=== PATIENT | female | born 1935 | race Caucasian/White ===

== ENCOUNTER 2016-05-13 15:12 | Inpatient (IN) | payer OTHER ==
[~2016-05-13] VITALS: Ht 157.5 cm; Wt 98.0 kg
[~2016-05-13 15:12] MED LIST: ACET325T96 PO; ALBU1AER9 INH; ALPHTAB4 PO; AMIO200T4 PO; APR25 PO; ATOR-54 PO; BENZ100C84 PO; BISA1SUP4 PR; CLON0.1T12 PO; DESITIN TOP; FERR1TAB13 PO; FLUT0.15; FLUT1INH INH; FRS/40 PO; GABA-112 PO; GLIP2.5T11 PO; GUAI1TAB55 PO; HYDR25SU6 PO; IPRASOL4 INH; LACT10SO17 PO; LEVO-371 PO; LEVO50TA PO; MAGNSUS5 PO; METO50TA16 PO; MGNO400 PO; MONT1TAB3 PO; NTRSLP4 SL; NYSTATIN TOP; OMEP40CA36 PO; OPTOPS OPB; PANT40TA PO; POLY1POW2 PO; RANITAB6 PO; RMR15 PO; SENN8.6T7 PO; SERT100T PO; SIME1CAP28 PO; SPRIN/30 INH; SSD TOP; TRAM-10 PO
[2016-05-13] MEDS ORDERED: ALBUT/IPRATROP 3MG/0.5MG NEB 3 ML VIAL INH STA (15:30)
--- NOTE | 2016-05-13 16:12 | EMERGENCY ROOM VISIT NOTE ---
History Report prepared by David: Tammie Lima Under the Supervision of: Ana MckeonO. First contact with patient: 15:22 Chief Complaint: FLU LIKE SX Stated Complaint: ILLNESS, FLU LIKE SX History of Present Illness The patient is a 80 year old female who presents to the Emergency Room with complaints of constant flu like symptoms beginning today. The patient states that she has had a productive cough with clear phlegm that is worse in the morning. She also notes right leg swelling, abdominal pain, gas, and burping. She denies any chest pain. She reports that her last bowel movement was yesterday. The patient had a course of Tamiflu at her [place] [facility]. Source of History: patient Onset: today Position: other (global) Quality: other (flu-like) Timing: constant Modifying Factors (Worsening): other (morning) Associated Symptoms: + abdominal pain, No chest pain Note: She also notes right leg swelling, gas, and burping. Review of Systems See HPI for pertinent positives & negatives. A total of 10 systems reviewed and were otherwise negative. Past Medical & Surgical Medical Problems: (1) Asthma (2) Atrial fibrillation (3) CKD (chronic kidney disease), stage III (4) COPD (chronic obstructive pulmonary disease) (5) Depression (6) Diabetes (7) Dyslipidemia (8) Hemorrhagic pericardial effusion (9) Hiatal hernia (10) Hypertension (11) Hypertension (12) Hypothyroidism (13) Pacemaker (14) S/P hernia repair (15) SSS (sick sinus syndrome) (16) Subdural hematoma (17) Vegetation of heart valve Surgical Problems: (1) History of esophagogastroduodenoscopy (2) S/P appendectomy (3) S/P cholecystectomy (4) S/P T&A (status post tonsillectomy and adenoidectomy) (5) S/P TASH (total abdominal hysterectomy) Family History Diabetes mellitus FH: cancer MOTHER (Breast and Bladder ) FH: heart disease MOTHER FHx: lung disease MOTHER Hypertension MOTHER Social History Smoking Status: Former Smoker Drug Use: none Marital Status: Housing Status: lives alone Occupation Status: retired Current/Historical Medications Scheduled [id number]-Ezmwqncdxqotb (Beano), 2 TABS PO TIDM Amiodarone Hcl (Cordarone), 200 MG PO DAILY Atorvastatin (Lipitor), 20 MG PO DAILY Clonidine Hcl (Catapres), 0.1 MG PO BID Cromolyn Sodium 4% Oph (Opticrom Oph), 1 DROP OPB DAILY Ferrous Sulfate (Kp Ferrous Sulfate), 325 MG PO DAILY Fluticasone Furoate-Vilanterol (Breo Ellipta), 1 PUFF INH DAILY Fluticasone Propionate (Nasal) (Flonase Allergy Relief), 2 SPRAYS NA DAILY Furosemide (Lasix), 40 MG PO BID Gabapentin (Neurontin), 100 MG PO TID Glipizide (Glipizide Er), 1 TAB PO DAILY Guaifenesin Ext Rel (Mucinex Ext Rel), 600 MG PO DAILY Hydralazine Hcl (Apresoline), 25 MG PO TID Lactulose (Chronulac), 15 ML PO DAILY Levocetirizine Dihydrochloride (Xyzal), 5 MG PO QPM Levothyroxine Sodium (Synthroid), 1 TAB PO DAILY Metoprolol Tartrate (Lopressor) (Lopressor), 50 MG PO BID Mirtazapine (Mirtazapine), 15 MG PO HS Montelukast Sodium (Singulair), 10 MG PO DAILY Omeprazole (Prilosec), 40 MG PO BID Oseltamivir Phosphate (Tamiflu), 75 MG PO DAILY Pantoprazole Sodium (Protonix), 40 MG PO DAILY Ranitidine Hcl (Zantac 150 Maximum Streng), 1 TAB PO BID Sennosides-Docusate Sodium (Sennalax-S), 2 TABS PO BID Sertraline Hcl (Zoloft), 100 MG PO DAILY Tiotropium [place] (Spiriva Handihaler), 1 CAP INH DAILY [Ssd/Nystatin/Desitin], 1 APPLN TOP PRN Scheduled PRN Acetaminophen Tab (Tylenol), 650 MG PO Q6H PRN for ELBOW & LEG PAIN Albuterol (Proair Hfa), 2 PUFFS INH Q4H PRN for SOB/Wheezing Benzonatate (Tessalon Perles), 100 MG PO Q6H PRN for Cough Bisacodyl (Bisac-Evac), 10 MG RE for Constipation Guaifenesin Ext Rel (Mucinex Ext Rel), 600 MG PO Q12 PRN for Hydrocortisone Acetate (Rectal (Anucort-Hc), 25 MG PO DAILY PRN for Hemorrhoids Ipratropium-Albuterol (Duoneb), 1 TREATMENT INH QID PRN for SOB/Wheezing Magnesium Hydroxide (Milk Of Magnesia), 30 ML PO DAILY PRN for Constipation Nitroglycerin (Nitrostat), 0.4 MG SL UD PRN for Chest Pain Nystatin (Topical) (Nystatin), 1 APPLN TOP BID PRN for irritation Polyethylene Glycol 3350 (Bulk (Polyethylene Glycol 3350), 17 GM PO DAILY PRN for Constipation Simethicone (Simethicone), 125 MG PO BID PRN for Gas or Constipation Tramadol (Ultram), 50 MG PO Q6H PRN for Pain Allergies Coded Allergies: Penicillins (Verified Allergy, Mild, rash, 05/13/16) Morphine (Verified Allergy, Unknown, UNKNOWN, 05/13/16) Codeine (Verified Adverse Reaction, Unknown, MAKES ME HIGH, 05/13/16) Physical Exam Vital Signs Date Time Temp Pulse Resp B/P Pulse Ox O2 Delivery O2 Flow Rate FiO2 05/13/16 17:45 83 25 163/129 05/13/16 17:45 87 Room Air 05/13/16 17:01 60 05/13/16 16:48 74 23 114/98 95 Nasal Cannula 2.0 05/13/16 15:32 37.1 81 24 144/99 90 Room Air 05/13/16 15:30 93 Nasal Cannula 2.0 Physical Exam GENERAL: Patient is awake, alert, and in no acute distress. Patient is resting comfortably and showing mild signs of anxiety EYES: The conjunctivae are clear. The pupils are round and reactive. EARS, NOSE, MOUTH AND THROAT: The nose is without any evidence of any deformity. Mucous membranes are moist tongue is midline NECK: The neck is nontender and supple. RESPIRATORY: Lung sounds diminished throughout, scattered rhonchi noted. Mild tachypnea noted but no conversational dyspnea noted. CARDIOVASCULAR: Regular rate and rhythm noted there no murmurs rubs or gallops normal S1 normal S2 GASTROINTESTINAL: Bowel sounds are present in all quadrants. Abdomen is nontender. Mildly distended but soft no rebound or guarding. MUSCULOSKELETAL/EXTREMITIES: There is no evidence of gross deformity full range of motion is noted in the hips and shoulders. Pedal edema bilaterally, left greater than right. SKIN: There is no obvious evidence of any rash. There are no petechiae, pallor or cyanosis noted. NEUROLOGIC: Patient is awake alert and oriented x3 Medical Decision & Procedures ER Provider Diagnostic Interpretation: X ray results and stated below per my interpretation and radiology interpretation. KUB FINDINGS: There is a lumbar levoscoliosis. There are advanced degenerative changes in the lower lumbar spine. There is moderate fecal retention. There is mild distention of transverse colon which measures 10 cm. There are surgical clips in the right upper quadrant consistent with a prior cholecystectomy IMPRESSION: 1. Fecal retention 2. Gaseous distention of transverse colon which measures 10 cm Electronically signed by: Yvan Gupta M.D. 05/13/2016 4:21 PM Dictated Date/Time: 05/13/2016 4:19 PM CHEST ONE VIEW PORTABLE FINDINGS: The heart remains enlarged. There is a left subclavian dual-chamber central venous pacemaker present. There is enlargement of the right pulmonary artery, likely secondary to pulmonary arterial hypertension. There is mild pulmonary vascular congestion. There is no lobar consolidation. There are no pleural effusions. There is a suspected hiatal hernia.[ IMPRESSION: 1. Stable cardiomegaly and suspected mild vascular congestion 2. Suspected pulmonary arterial hypertension 3. Hiatal hernia 4. No evidence of acute parenchymal consolidation Electronically signed by: Yvan Gupta M.D. 05/13/2016 4:19 PM Dictated Date/Time: 05/13/2016 4:17 PM Laboratory Results Test 05/13/16 15:20 05/13/16 15:45 05/13/16 18:22 Urine Color YELLOW Urine Appearance CLEAR (CLEAR) Urine pH 7.5 (4.5-7.5) Urine Specific [place] 1.004 (1.000-1.030) Urine Protein NEG (NEG) Urine Glucose (UA) NEG (NEG) Urine Ketones NEG (NEG) Urine Occult Blood NEG (NEG) Urine Nitrite NEG (NEG) Urine Bilirubin NEG (NEG) Urine Urobilinogen NEG (NEG) Urine Leukocyte Esterase TRACE (NEG) Urine WBC (Auto) 1-5 /hpf (0-5) Urine RBC (Auto) 0-4 /hpf (0-4) Urine Hyaline Casts (Auto) 0 /lpf (0-5) Urine Epithelial Cells (Auto) 5-10 /lpf (0-5) Urine Bacteria (Auto) NEG (NEG) Immature Granulocyte % (Auto) 0.1 % White Blood Count 6.84 K/uL (4.8-10.8) Red Blood Count 3.89 M/uL (4.2-5.4) Hemoglobin 12.0 g/dL (12.0-16.0) Hematocrit 37.9 % (37-47) Mean Corpuscular Volume 97.4 fL (80-100) Mean Corpuscular Hemoglobin 30.8 pg (25-34) Mean Corpuscular Hemoglobin Concent 31.7 g/dl (32-36) Platelet Count 140 K/uL (130-400) Mean Platelet Volume 9.8 fL (7.4-10.4) Neutrophils (%) (Auto) 70.0 % Lymphocytes (%) (Auto) 14.2 % Monocytes (%) (Auto) 11.5 % Eosinophils (%) (Auto) 4.1 % Basophils (%) (Auto) 0.1 % Neutrophils # (Auto) 4.78 K/uL (1.4-6.5) Lymphocytes # (Auto) 0.97 K/uL (1.2-3.4) Monocytes # (Auto) 0.79 K/uL (0.11-0.59) Eosinophils # (Auto) 0.28 K/uL (0-0.5) Basophils # (Auto) 0.01 K/uL (0-0.2) Immature Granulocyte # (Auto) 0.01 K/uL (0.00-0.02) Prothrombin Time 10.8 SECONDS (9.0-12.0) Prothromb Time International Ratio 1.0 (0.9-1.1) Activated Partial Thromboplast Time 24.6 SECONDS (21.0-31.0) Partial Thromboplastin Ratio 0.9 Total Bilirubin 0.3 mg/dl (0.2-1) Aspartate Amino Transf (AST/SGOT) 25 U/L (15-37) Alanine Aminotransferase (ALT/SGPT) 24 U/L (12-78) Alkaline Phosphatase 109 U/L (45-117) Total Creatine Kinase 59 U/L (26-192) Creatine Kinase MB 1.3 ng/ml (0.5-3.6) Creatine Kinase MB Ratio 2.2 (0-3.0) Troponin I 0.022 ng/ml (0-0.045) Pro-B-Type Natriuretic Peptide 9392 pg/ml (0-1800) Total Protein 6.3 gm/dl (6.4-8.2) Albumin 3.2 gm/dl (3.4-5.0) Globulin 3.1 gm/dl (2.5-4.0) Albumin/Globulin Ratio 1.0 (0.9-2) Influenza Type A Antigen Neg for Influ A (NEG) Influenza Type B Antigen Neg for Influ B (NEG) Laboratory results per my review. Medications Administered Medications (Trade) Dose Ordered Sig/Srinivas Route Start Time Stop Time Status Last Admin Dose Admin Albuterol/ Ipratropium (Duoneb) 3 ml NOW STAT INH 05/13/16 15:30 05/13/16 15:37 DC 05/13/16 15:43 3 ML Furosemide (Lasix Inj) 40 mg NOW STAT IV 05/13/16 17:38 05/13/16 17:39 DC 05/13/16 18:13 40 MG Levofloxacin (Levaquin / D5W) 750 mg ONE ONCE IV 05/13/16 17:45 05/13/16 17:46 DC 05/13/16 18:13 750 MG ECG Indication: other (flu like) Rate (beats per minute): 64 Rhythm: other (artial pacemaker) Findings: no ectopy, other (poor R wave progressoin, no ST segment abnormalities) Comparison ECG Date: 04/10/16 Change: no significant change ED Course 1524: The patient was evaluated in room B7. A complete history and physical examination were performed. 1530: Duoneb 3ml INH. 1738: Lasix Inj 40mg IV. 1745: Levofloxacin 750mg IV 1750: I discussed the patient's case with Luisana Bello. The patient will be evaluated for further management. 1811: Upon reevaluation, the patient is hemodynamically stable. I discussed results and treatment plan with the patient. She verbalizes agreement and understanding. I spoke with Luisana Bello of [facility]. The patient will be evaluated for further management and care. Medical Decision Differential diagnosis: Etiologies such as infections, reactive airway disease, pneumonia, pneumothorax , COPD, CHF, cardiac ischemia, pulmonary embolism, musculoskeletal, gastrointestinal, as well as others were entertained. Nursing notes reviewed. The patient is an 80-year-old female who presented to the emergency department for an evaluation of shortness of breath. The patient appeared to have a mixed picture of CHF as well as infectious process. She was treated for CHF as well as pneumonia. She was hypoxic especially on any exertion. I discussed the patient's laboratory and radiographic studies with her. She was feeling much better on subsequent reevaluation but I discussed her case with the on-call [facility] hospitalist group because of the degree of hypoxia. They've agreed to evaluate the patient in the emergency department for further management and disposition. Consults Time Called: [phone] Consulting Physician: Luisana Lilly Returned Call: [phone] I discussed the patient's case with Luisana Bello. The patient will be evaluated for further management. Impression Primary Impression: Pneumonia Additional Impressions: CHF (congestive heart failure) Hypoxia Scribe Attestation The scribe's documentation has been prepared under my direction and personally reviewed by me in its entirety. I confirm that the note above accurately reflects all work, treatment, procedures, and medical decision making performed by me. Departure Information Dispostion Being Evaluated By Hospitalist Referrals [facility] (PCP) Patient Instructions My [facility] Problem Qualifiers
[2016-05-13 16:15] LABS: BASO % 0.1 %; BASO ABS # 0.01 K/uL (0-0.2); CALCIUM 8.9 mg/dl (8.5-10.1); COMPLETE YES; EOS % 4.1 %; HEMATOCRIT 37.9 % (37-47); IG% 0.1 %; LYMPH % 14.2 %; LYMPH ABS # 0.97 K/uL (1.2-3.4); MEAN CELL VOLUME 97.4 fL (80-100); MEAN CORPUSCULAR HEMOGLOBIN 30.8 pg (25-34); MEAN CORPUSCULAR HGB CONC 31.7 g/dl (32-36); MEAN PLATELET VOLUME 9.8 fL (7.4-10.4); MONO % 11.5 %; PLATELET COUNT 140 K/uL (130-400); POTASSIUM 4.1 mmol/L (3.5-5.1); RED BLOOD COUNT 3.89 M/uL (4.2-5.4); WHITE BLOOD COUNT 6.84 K/uL (4.8-10.8)
[2016-05-13 16:20] LABS: CKMB/CK RATIO 2.2 (0-3.0)
--- NOTE | 2016-05-13 16:21 | DIAGNOSTIC IMAGING REPORT ---
CHEST ONE VIEW PORTABLE CLINICAL HISTORY: Respiratory distress. Dyspnea. COMPARISON STUDY: 04/08/2016 FINDINGS: The heart remains enlarged. There is a left subclavian dual-chamber central venous pacemaker present. There is enlargement of the right pulmonary artery, likely secondary to pulmonary arterial hypertension. There is mild pulmonary vascular congestion. There is no lobar consolidation. There are no pleural effusions. There is a suspected hiatal hernia.[ IMPRESSION: 1. Stable cardiomegaly and suspected mild vascular congestion 2. Suspected pulmonary arterial hypertension 3. Hiatal hernia 4. No evidence of acute parenchymal consolidation Electronically signed by: Yvan Gupta M.D. 05/13/2016 4:19 PM Dictated Date/Time: 05/13/2016 4:17 PM
--- NOTE | 2016-05-13 16:23 | DIAGNOSTIC IMAGING REPORT ---
VANDA CLINICAL HISTORY: nausea COMPARISON STUDY: 05/06/2015 FINDINGS: There is a lumbar levoscoliosis. There are advanced degenerative changes in the lower lumbar spine. There is moderate fecal retention. There is mild distention of transverse colon which measures 10 cm. There are surgical clips in the right upper quadrant consistent with a prior cholecystectomy IMPRESSION: 1. Fecal retention 2. Gaseous distention of transverse colon which measures 10 cm Electronically signed by: Yvan Gupta M.D. 05/13/2016 4:21 PM Dictated Date/Time: 05/13/2016 4:19 PM
[2016-05-13 16:26] LABS: URINE APPEARANCE CLEAR (CLEAR); URINE BILIRUBIN NEG (NEG); URINE COLOR YELLOW; URINE NITRITE NEG (NEG); URINE PH 7.5 (4.5-7.5); URINE SPECIFIC GRAVITY 1.004 (1.000-1.030); UROBILINOGEN NEG (NEG)
[2016-05-13 16:31] LABS: PARTIAL THROMBOPLASTIN RATIO 0.9; PROTHROMBIN TIME (PATIENT) 10.8 SECONDS (9.0-12.0)
[2016-05-13] MEDS ORDERED: NF406 PO (16:34)
[2016-05-13 16:37] LABS: MANUAL MICROSCOPIC REQUIRED? NO; REVIEW REQ? NO
[2016-05-13] MEDS ORDERED: FUROSEMIDE 40 MG/4 ML VIAL IV STA (17:38)
[2016-05-13] MEDS ORDERED: LEVAQUIN 750MG / 150ML D5W IV ONE (17:45)
[2016-05-13] MEDS ORDERED: ALBUT/IPRATROP 3MG/0.5MG NEB 3 ML VIAL INH PRN (18:45)
[2016-05-13] MEDS ORDERED: NYST80OI TOP (18:56)
[2016-05-13] MEDS ORDERED: BISA10SU7 RE (18:56)
[2016-05-13] MEDS ORDERED: SENN8.6T15 PO (18:56)
[2016-05-13] MEDS ORDERED: DEXTROSE 50% 50 ML SYR IV PRN (19:00)
[2016-05-13] MEDS ORDERED: GLUCOSE 40% GEL 15 GM TUBE PO PRN (19:00)
[2016-05-13] MEDS ORDERED: GLUCOSE 10 TABS/TUBE PO PRN (19:00)
[2016-05-13] MEDS ORDERED: GLUCAGON FOR INJ 1 MG VIAL SQ PRN (19:00)
[2016-05-13] MEDS ORDERED: BISACODYL 10 MG SUPP PR STA (19:44)
--- NOTE | 2016-05-13 19:57 | History and Physical ---
History & Physical Date & Time of Service: May 13, 2016 at 19:11 Chief Complaint: Cough, Shortness of Breath Primary Care Physician: J[facility] History of Present Illness 80 year old female who presents to the ER with cough and shortness of breath. Patient was admitted to [facility] 03/2016 for chest pain and underwent echo that showed mitral valve abnormality. Etiologies included possible calcified ruptured chord, versus healed vegetation, although SBE cannot be excluded. Blood cultures were negative. Patient followed up with cardiology recently and had an echo that was unchanged from the prior one. There was an outbreak of influenza at [facility] and patient was placed empirically on Tamiflu on 05/05 for a 10 day course. Patient reports she started to get sick a few days ago. She reports worsening shortness of breath and cough. She reports shortness of breath occurs at rest and with exertion. Cough has been mostly dry but occasionally productive for a clear sputum. She reports feeling feverish however did not take her temperature. She reports episodes of diaphoresis. No chest pain or palpitations. She denies lightheadedness, dizziness, or syncopal event. No abdominal pain, nausea, or vomiting. She reports a few episodes of diarrhea. No urinary symptoms. In the ER, patient was found to be 87% on room air that improved with oxygen 2L via NC. CXR is showing mild fluid overload. She was given IV Levaquin, Lasix 40mg IV, and neb. Vitals are stable. Remainder of her labs are unremarkable. Past Medical/Surgical History Medical Problems: (1) Asthma Status: Chronic (2) Atrial fibrillation Status: Chronic (3) CKD (chronic kidney disease), stage III Status: Chronic (4) COPD (chronic obstructive pulmonary disease) Status: Chronic (5) Depression Status: Chronic (6) Diabetes Permanent Comment: DM2, on oral medications Status: Chronic (7) Dyslipidemia Status: Chronic (8) Hemorrhagic pericardial effusion Permanent Comment: post op Status: Resolved (9) Hiatal hernia Status: Chronic (10) Hypertension Status: Chronic (11) Hypertension Status: Chronic (12) Hypothyroidism Status: Chronic (13) Pacemaker Status: Chronic (14) S/P hernia repair Status: Chronic (15) SSS (sick sinus syndrome) Status: Chronic (16) Subdural hematoma Permanent Comment: s/p fall Status: Resolved (17) Vegetation of heart valve Permanent Comment: Abnormal echo with mitral valve abnormality, possible calcified ruptured chord, versus healed vegetation, although SBE cannot be excluded Status: Chronic Surgical Problems: (1) History of esophagogastroduodenoscopy Status: Chronic (2) S/P appendectomy Status: Chronic (3) S/P cholecystectomy Status: Chronic (4) S/P T&A (status post tonsillectomy and adenoidectomy) Status: Chronic (5) S/P TASH (total abdominal hysterectomy) Status: Chronic Family History Diabetes mellitus FH: cancer MOTHER (Breast and Bladder ) FH: heart disease MOTHER FHx: lung disease MOTHER Hypertension MOTHER Social History Smoking Status: Former Smoker Alcohol Use: none Housing status: assisted living Immunizations History of Influenza Vaccine: Yes Influenza Vaccine Date: Mar 17, 2016 History of Tetanus Vaccine?: Yes Tetanus Immunization Date: September 06, 2011 History of Pneumococcal: Yes Pneumococcal Date: Feb 03, 2015 Multi-Drug Resistant Organisms History of MDRO: No Allergies Coded Allergies: Penicillins (Verified Allergy, Mild, rash, 05/13/16) Morphine (Verified Allergy, Unknown, UNKNOWN, 05/13/16) Codeine (Verified Adverse Reaction, Unknown, MAKES ME HIGH, 05/13/16) Home Medications Scheduled Dchgn-G-Xnedhrlmkivbt (Beano), 2 TABS PO TIDM Amiodarone Hcl (Cordarone), 200 MG PO DAILY Atorvastatin (Lipitor), 20 MG PO DAILY Clonidine Hcl (Catapres), 0.1 MG PO BID Cromolyn Sodium 4% Oph (Opticrom Oph), 1 DROP OPB DAILY Ferrous Sulfate (Kp Ferrous Sulfate), 325 MG PO DAILY Fluticasone Furoate-Vilanterol (Breo Ellipta), 1 PUFF INH DAILY Fluticasone Propionate (Nasal) (Flonase Allergy Relief), 2 SPRAYS NA DAILY Furosemide (Lasix), 40 MG PO BID Gabapentin (Neurontin), 100 MG PO TID Glipizide (Glipizide Er), 1 TAB PO DAILY Guaifenesin Ext Rel (Mucinex Ext Rel), 600 MG PO DAILY Hydralazine Hcl (Apresoline), 25 MG PO TID Lactulose (Chronulac), 15 ML PO DAILY Levocetirizine Dihydrochloride (Xyzal), 5 MG PO QPM Levothyroxine Sodium (Synthroid), 1 TAB PO DAILY Metoprolol Tartrate (Lopressor) (Lopressor), 50 MG PO BID Mirtazapine (Mirtazapine), 15 MG PO HS Montelukast Sodium (Singulair), 10 MG PO DAILY Omeprazole (Prilosec), 40 MG PO BID Oseltamivir Phosphate (Tamiflu), 75 MG PO DAILY Pantoprazole Sodium (Protonix), 40 MG PO DAILY Ranitidine Hcl (Zantac 150 Maximum Streng), 1 TAB PO BID Sennosides-Docusate Sodium (Sennalax-S), 2 TABS PO BID Sertraline Hcl (Zoloft), 100 MG PO DAILY Tiotropium [place] (Spiriva Handihaler), 1 CAP INH DAILY [Ssd/Nystatin/Desitin], 1 APPLN TOP PRN Scheduled PRN Acetaminophen Tab (Tylenol), 650 MG PO Q6H PRN for ELBOW & LEG PAIN Albuterol (Proair Hfa), 2 PUFFS INH Q4H PRN for SOB/Wheezing Benzonatate (Tessalon Perles), 100 MG PO Q6H PRN for Cough Bisacodyl (Bisac-Evac), 10 MG RE for Constipation Guaifenesin Ext Rel (Mucinex Ext Rel), 600 MG PO Q12 PRN for Hydrocortisone Acetate (Rectal (Anucort-Hc), 25 MG PO DAILY PRN for Hemorrhoids Ipratropium-Albuterol (Duoneb), 1 TREATMENT INH QID PRN for SOB/Wheezing Magnesium Hydroxide (Milk Of Magnesia), 30 ML PO DAILY PRN for Constipation Nitroglycerin (Nitrostat), 0.4 MG SL UD PRN for Chest Pain Nystatin (Topical) (Nystatin), 1 APPLN TOP BID PRN for irritation Polyethylene Glycol 3350 (Bulk (Polyethylene Glycol 3350), 17 GM PO DAILY PRN for Constipation Simethicone (Simethicone), 125 MG PO BID PRN for Gas or Constipation Tramadol (Ultram), 50 MG PO Q6H PRN for Pain Review of Systems 10 point review of systems was completed with the pertinent positives and negatives noted per the HPI Physical Exam Vital Signs Date Time Temp Pulse Resp B/P Pulse Ox O2 Delivery O2 Flow Rate FiO2 05/13/16 17:45 83 25 163/129 05/13/16 17:45 87 Room Air 05/13/16 17:01 60 05/13/16 16:48 74 23 114/98 95 Nasal Cannula 2.0 05/13/16 15:32 37.1 81 24 144/99 90 Room Air 05/13/16 15:30 93 Nasal Cannula 2.0 General Appearance: no apparent distress Head: normocephalic Eyes: normal inspection ENT: hearing grossly normal Neck: supple, no JVD Respiratory/Chest: no respiratory distress, + decreased breath sounds (poor air entry BL), + wheezing (faint, end expiratory), + pertinent finding (mild conversational dyspnea) Cardiovascular: regular rate, rhythm, normal peripheral pulses, + pertinent finding (trace edema BLLE) Abdomen/GI: normal bowel sounds, non tender, soft Extremities/Musculoskelatal: normal inspection, no calf tenderness Neurologic/Psych: no motor/sensory deficits, alert, normal mood/affect, oriented x 3 Skin: normal color, warm/dry Diagnostics Laboratory Results Results Past 24 Hours Test 05/13/16 15:20 05/13/16 15:45 05/13/16 18:22 05/13/16 18:43 Range/Units Urine Color YELLOW Urine Appearance CLEAR CLEAR Urine pH 7.5 4.5-7.5 Urine Specific [place] 1.004 1.000-1.030 Urine Protein NEG NEG Urine Glucose (UA) NEG NEG Urine Ketones NEG NEG Urine Occult Blood NEG NEG Urine Nitrite NEG NEG Urine Bilirubin NEG NEG Urine Urobilinogen NEG NEG Urine Leukocyte Esterase TRACE NEG Urine WBC (Auto) 1-5 0-5 /hpf Urine RBC (Auto) 0-4 0-4 /hpf Urine Hyaline Casts (Auto) 0 0-5 /lpf Urine Epithelial Cells (Auto) 5-10 0-5 /lpf Urine Bacteria (Auto) NEG NEG White Blood Count 6.84 4.8-10.8 K/uL Red Blood Count 3.89 4.2-5.4 M/uL Hemoglobin 12.0 12.0-16.0 g/dL Hematocrit 37.9 37-47 % Mean Corpuscular Volume 97.4 80-100 fL Mean Corpuscular Hemoglobin 30.8 25-34 pg Mean Corpuscular Hemoglobin Concent 31.7 32-36 g/dl Platelet Count 140 130-400 K/uL Mean Platelet Volume 9.8 7.4-10.4 fL Neutrophils (%) (Auto) 70.0 % Lymphocytes (%) (Auto) 14.2 % Monocytes (%) (Auto) 11.5 % Eosinophils (%) (Auto) 4.1 % Basophils (%) (Auto) 0.1 % Neutrophils # (Auto) 4.78 1.4-6.5 K/uL Lymphocytes # (Auto) 0.97 1.2-3.4 K/uL Monocytes # (Auto) 0.79 0.11-0.59 K/uL Eosinophils # (Auto) 0.28 0-0.5 K/uL Basophils # (Auto) 0.01 0-0.2 K/uL RDW Standard Deviation 54.4 36.4-46.3 fL RDW Coefficient of Variation 15.4 11.5-14.5 % Immature Granulocyte % (Auto) 0.1 % Immature Granulocyte # (Auto) 0.01 0.00-0.02 K/uL Prothrombin Time 10.8 9.0-12.0 SECONDS Prothromb Time International Ratio 1.0 0.9-1.1 Activated Partial Thromboplast Time 24.6 21.0-31.0 SECONDS Partial Thromboplastin Ratio 0.9 Sodium Level 144 136-145 mmol/L Potassium Level 4.1 3.5-5.1 mmol/L Chloride Level 107 98-107 mmol/L Carbon Dioxide Level 29 21-32 mmol/L Anion Gap 8.0 3-11 mmol/L Blood Urea Nitrogen 32 7-18 mg/dl Creatinine 1.00 0.60-1.20 mg/dl Est Creatinine Clear Calc Drug Dose 49.8 ml/min Estimated GFR () 61.2 Estimated GFR (Non- 52.8 BUN/Creatinine Ratio 32.0 10-20 Random Glucose 116 70-99 mg/dl Calcium Level 8.9 8.5-10.1 mg/dl Total Bilirubin 0.3 0.2-1 mg/dl Aspartate Amino Transf (AST/SGOT) 25 15-37 U/L Alanine Aminotransferase (ALT/SGPT) 24 12-78 U/L Alkaline Phosphatase 109 45-117 U/L Total Creatine Kinase 59 26-192 U/L Creatine Kinase MB 1.3 0.5-3.6 ng/ml Creatine Kinase MB Ratio 2.2 0-3.0 Troponin I 0.022 0-0.045 ng/ml Pro-B-Type Natriuretic Peptide 9392 0-1800 pg/ml Total Protein 6.3 6.4-8.2 gm/dl Albumin 3.2 3.4-5.0 gm/dl Globulin 3.1 2.5-4.0 gm/dl Albumin/Globulin Ratio 1.0 0.9-2 Diagnostic Radiology KUB IMPRESSION: 1. Fecal retention 2. Gaseous distention of transverse colon which measures 10 cm CXR IMPRESSION: 1. Stable cardiomegaly and suspected mild vascular congestion 2. Suspected pulmonary arterial hypertension 3. Hiatal hernia 4. No evidence of acute parenchymal consolidation Impression Assessment and Plan ACUTE HYPOXIC RESPIRATORY FAILURE, LIKELY MULTIFACTORIAL DUE TO: - admit to tele - patient presenting with cough and SOB x 3 days; infuenza outbreak at [facility] however patient has been on prophylactic [place] since 05/05 - 87% on room air on arrival, improved with oxygen 2L via NC - check ABG COPD EXACERBATION - will start Prednisone 20mg BID - around the clock nebs - continue home inhaled corticosteroid - s/p Levaquin in ED, will continue with Doxycycline tomorrow due to prolonged QTC ACUTE ON CHRONIC DIASTOLIC CHF - s/p Lasix 40mg IV in ED, will continue with 20mg IV BID tomorrow - I/Os, daily weights, low Na+ diet - echo 05/04/16 - EF 60-64%, grade I diastolic dysfunction - admission in 03/2016 for chest pain and found to have mitral valve abnormality; etiologies included possible calcified ruptured chord, versus healed vegetation, although SBE cannot be excluded (had negative blood cultures) . Repeat echo 05/04/16 was unchanged. Repeat echo ordered to re-evaluate - cardio consult CONSTIPATION - on Sennalax routinely BID - KUB showing fecal retention - will give Dulcolax suppository x 1, follow up with Fleets enema if needed ATRIAL FIBRILLATION - rhythm controlled on amiodarone, rate controlled on metoprolol - not anticoagulated due to hx of hemorrhagic pericardial effusion and subdural hematoma s/p fall SSS S/P PACER - no acute issues HTN - BP controlled, continue clonidine, hydralazine, and metoprolol DM - hgb a1c 7.0 03/2016 - hold oral agents and utilize SSI while hospitalized GERD, HIATAL HERNIA - continue PPI/H2 filipe HYPOTHYROIDISM - continue levothyroxine DEPRESSION - continue sertraline DVT PROPHYLAXIS - SCDs due to hx of hemorrhagic pericardial effusion and subdural hematoma CODE STATUS - Patient is a DNR as per my discussion with her. DISPO - In my clinical judgment this beneficiary meets acute admission criteria, established by [facility], that includes being hospitalized through two midnights. ATTENDING NOTE Patient seen & examined at bedside. Reviewed History/Physical and confirmed all the findings in person. Patient comes comes to ED with gradually worsening cough and SOB with hypoxemia. Denies any chest pain/pressure. Already has been given Tamiflu at her residing facility. Initial work up is in favor of COPD exacerbation and CHF. Received Levaquin & Lasix in ED. Will continue Lasix and Doxycycline. Patient is DNR. DVT Prophylaxis: SCDs. Patient will be followed by Dr. Hinton. Mike wilkins MD Level of Care Telemetry Resuscitation Status DO NOT RESUSCITATE VTE Prophylaxis VTE Risk Assessment Done? Y/N: Yes Risk Level: Moderate Given or contraindicated: SCD's
[2016-05-13 20:01] VITALS: BP 155/68; PULSE 66; TEMP 36.9; O2SAT 96; BMI 36.9
[2016-05-13] MEDS: ALBUT/IPRATROP 3MG/0.5MG NEB 3 ML VIAL INH SCH (20:05)
[2016-05-13 20:06] VITALS: PULSE 83; O2SAT 93
[2016-05-13] MEDS ORDERED: POLYETHYLENE (MIRALAX) 17 GM PACK PO PRN (20:15)
[2016-05-13 20:18] LABS: ALLEN TEST POS (POS); ARTERIAL BLD GAS O2 SATURATION 95.7 % (90-95); ARTERIAL BLOOD GAS HCO3 29 mmol/L (19-24); ARTERIAL BLOOD GAS PO2 81 mm/Hg (80-95); ARTERIAL BLOOD GAS pH 7.41 (7.35-7.45); O2 ADMINISTRATION 2 LITERS
[2016-05-13] MEDS: INSULIN ASPART 100 UNITS/ML 3 ML PEN SC SCH (21:00)
[2016-05-13] MEDS: MIRTAZAPINE TAB 15 MG TAB PO SCH (21:27)
[2016-05-13] MEDS: GABAPENTIN 100 MG CAP PO SCH (21:27)
[2016-05-13] MEDS: DOCUSATE SODIUM/SENNA 50/8.6MG TAB PO SCH (21:27)
[2016-05-13] MEDS: RANITIDINE HCL 150 MG TAB PO SCH (21:27)
[2016-05-13] MEDS: PANTOprazole SOD 40 MG TAB PO SCH (21:27)
[2016-05-13] MEDS: CLONIDINE HCL 0.1 MG TAB PO SCH (21:27)
[2016-05-13] MEDS: METOPROLOL TARTRATE 50 MG TAB PO SCH (21:27)
[2016-05-13 23:25] VITALS: BP 150/82; PULSE 65; TEMP 36.4; O2SAT 95
[2016-05-14] VITALS (12 sets, daily range): BP systolic 119–178; BP diastolic 52–83; PULSE 57–67; TEMP 36.5–36.9; O2SAT 91–98
[2016-05-14 06:10] LABS: HEMATOCRIT 38.9 % (37-47); MEAN CORPUSCULAR HGB CONC 31.4 g/dl (32-36); MEAN PLATELET VOLUME 9.7 fL (7.4-10.4); PLATELET COUNT 138 K/uL (130-400); RED BLOOD COUNT 3.93 M/uL (4.2-5.4); WHITE BLOOD COUNT 7.18 K/uL (4.8-10.8)
[2016-05-14] MEDS: LEVOTHYROXINE 50 MCG TAB PO SCH (06:13)
[2016-05-14 06:56] LABS: BUN/CREATININE RATIO 26.3 (10-20); CALCIUM 9.1 mg/dl (8.5-10.1); CREATININE 1.2 mg/dl (0.60-1.20); POTASSIUM 4.9 mmol/L (3.5-5.1)
[2016-05-14] MEDS: ALBUT/IPRATROP 3MG/0.5MG NEB 3 ML VIAL INH SCH ×4 (07:02→19:00)
[2016-05-14] MEDS ORDERED: NON-FORMULARY MEDICATION (Alpha-D-Galactosidase (Beano) 2 TABS) PO SCH (07:30)
[2016-05-14] MEDS: INSULIN ASPART 100 UNITS/ML 3 ML PEN SC SCH ×4 (07:56→21:57)
[2016-05-14] MEDS: GUAIFENESIN 600 MG TABCR PO SCH (07:59)
[2016-05-14] MEDS: ATORVASTATIN 20 MG TAB PO SCH (07:59)
[2016-05-14] MEDS: SERTRALINE HCL 100 MG TAB PO SCH (07:59)
[2016-05-14] MEDS: FERROUS SULFATE 325 MG TAB PO SCH (08:00)
[2016-05-14] MEDS: AMIODARONE 200 MG TAB PO SCH (08:00)
[2016-05-14] MEDS ORDERED: DOXYCYCLINE IV 100 MG in DEXTROSE 5% 100ML 100 ML IV SCH (08:00)
[2016-05-14] MEDS: RANITIDINE HCL 150 MG TAB PO SCH ×2 (08:00→21:56)
[2016-05-14] MEDS: GABAPENTIN 100 MG CAP PO SCH ×3 (08:01→21:55)
[2016-05-14] MEDS: DOCUSATE SODIUM/SENNA 50/8.6MG TAB PO SCH ×2 (08:01→21:56)
[2016-05-14] MEDS: PANTOprazole SOD 40 MG TAB PO SCH ×2 (08:01→21:55)
[2016-05-14] MEDS: METOPROLOL TARTRATE 50 MG TAB PO SCH ×2 (08:03→21:55)
[2016-05-14] MEDS: CLONIDINE HCL 0.1 MG TAB PO SCH ×2 (08:04→21:55)
[2016-05-14] MEDS: FLUTICASONE PROPIONATE NA SPR 16 GM BTL SCH (08:04)
[2016-05-14] MEDS ORDERED: FUROSEMIDE INJ 20 MG in SYRINGE 0 ML IV SCH (09:00)
[2016-05-14] MEDS ORDERED: PANTOprazole SOD 40 MG TAB PO SCH (09:00)
[2016-05-14] MEDS ORDERED: LACTULOSE SYRUP 20 GM/30 ML UDC PO SCH (09:00)
--- NOTE | 2016-05-14 11:07 | CARDIOLOGY CONSULTATION ---
DATE OF CONSULTATION: 05/14/2016 This is a consultation for the hospitalist service. REASON FOR CONSULTATION: Shortness of breath. HISTORY OF PRESENT ILLNESS: The patient is an 80-year-old female who is a resident of [facility]. She is well known to our service due to a recent hospital admission for atypical chest pain. During that admission, she had an echocardiogram revealing an abnormality of the mitral valve. There was some concern that it may be due to endocarditis, and the patient underwent a transesophageal echocardiogram. 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 There was no significant mitral regurgitation. Blood cultures were negative. The patient was allowed to be discharged home. She has been readmitted after she developed progressive shortness of breath over approximately 24 hours. States she was not feeling well. Upon presentation to the hospital, she was given intravenous diuretics and had a brisk diuresis. She is now off of supplemental oxygen and actually feels quite well. Pronatriuretic peptide was 9392 on admission. Troponins at admission were negative. Her EKG showed an A paced rhythm. ALLERGIES: CODEINE, MORPHINE AND PENICILLINS. PAST MEDICAL HISTORY: As outlined above, the patient has an abnormality of her mitral valve which is not significantly compromising the mitral valve function at least by previous echocardiography. She is status post permanent pacemaker for sick sinus syndrome, but also has a history of paroxysmal atrial fibrillation for which she takes amiodarone. She had a mechanical fall in November of 2015 resulting in a subdural hematoma. She has not been on long-term anticoagulation following that event. She is treated for hypertension and does have a large hiatal hernia which has not been considered amenable to surgical repair. SOCIAL HISTORY: She is a nonsmoker. She is a resident of a shelter. FAMILY MEDICAL HISTORY: Noncontributory. REVIEW OF SYSTEMS: A 10-point review of systems is negative except for the history of chief complaint. In addition, the patient has not had any fever or chills. No real viral prodrome prior to this admission. She denies chest pain. PHYSICAL EXAMINATION: GENERAL: She is alert and oriented. VITAL SIGNS: Blood pressure 140/70, pulse is regular at 60. She is afebrile. HEENT: She is normocephalic. Pupils are equal and reactive to light. Extraocular muscles are intact bilaterally. NECK: The neck veins are flat. The carotids have good upstrokes bilaterally without bruits. Thyroid is nonpalpable. RESPIRATORY: Breath sounds equal bilaterally and clear to auscultation. CARDIOVASCULAR: Heart has a regular rhythm. Normal S1, S2. No cardiac rubs, no murmurs. GASTROINTESTINAL: Abdomen is soft, nontender without organomegaly. EXTREMITIES: Free of edema, digit clubbing, or cyanosis. NEUROLOGIC: Grossly intact. SKIN: Warm to touch. LYMPH NODES: Negative to palpation. IMPRESSION: 1. Presentation with shortness of breath, most likely due to congestive heart failure, perhaps due to diastolic dysfunction. 2. Abnormal findings on echocardiogram of the mitral valve. 3. Status post permanent pacemaker for sick sinus syndrome. 4. Paroxysmal atrial fibrillation. 5. Mechanical fall November 2015 with a subdural hematoma and not on anticoagulation at this time. RECOMMENDATIONS: The patient is clinically comfortable after she received intravenous diuretics. I will repeat the patient's echocardiogram to evaluate the mitral valve with this change in her status. I do not hear a cardiac murmur; however, I do not believe that there is severe mitral regurgitation at this time.
[2016-05-14] MEDS ORDERED: MINERAL OIL ENEMA 133 ML BTL PR ONE (13:24)
[2016-05-14] MEDS ORDERED: MINERAL OIL ENEMA 133 ML BTL PR PRN (13:30)
[2016-05-14] MEDS: LACTULOSE SYRUP 20 GM/30 ML UDC PO SCH ×2 (14:14→21:55)
--- NOTE | 2016-05-14 16:47 | Progress Note ---
Medicine Progress Note Date & Time of Visit: May 14, 2016 at 13:25. Subjective 80 yo F admitted with acute hypoxia 2/2 acute on chronic diastolic CHF and COPD exacerbation that has improved overnight. She received Lasix IV, bronchodilators and prednisone overnight and is feeling better today. She does still have some significant gas and abdominal pain and is currently saying she may have to have a BM soon. She reports chronic constipation, and says that she had a BM at 0400 but it was liquidy and she didnt feel much relief. She was given a suppository last night. Her abdominal discomfort is causing her mild distress at this time and is outweighing the pulmonary issues which have improved. breathing improved overnight 400cc out overnight per records some dry cough present, but she says this is chronic for her. has been occurring off/on all week abdominal pain appears to be a more acute issue at this point, significant gas is heard throughout abdomen and there is some distension and TTP all throughout. Pt has been passing gas with some improvement Reports BM at 0400 but this was watery--sounds like overflow--needs to move fecal impaction--enema ordered now--increased Lactuslose to 20gm PO tID x 48 hours scheduled with hold parameter will reassess for BM in next couple of hours. states that abx give her constipation and she has this issue chronically no wheezing heard on exam poss diastolic murmur heard in central sternal area. no swelling in extremities off oxygen, not on home oxygen at baseline no conversational dyspnea and not in distress denies chest pain couldn't finish lunch yesterday but tolerating PO today--dry heaving yesterday Objective Last 8 Hrs Date Time Temp Pulse Resp B/P Pulse Ox O2 Delivery O2 Flow Rate FiO2 05/14/16 12:00 91 Room Air 05/14/16 11:27 36.5 63 18 138/52 91 Room Air 05/14/16 11:16 57 20 93 Room Air 05/14/16 08:00 98 Room Air 05/14/16 07:33 36.6 60 18 178/83 98 2.0 05/14/16 07:02 67 20 97 Nasal Cannula 2.0 Physical Exam: GEN: WNWD, in mild discomfort because she has to use the bathroom/pass gas, alert and appropriate HEENT: NC/AT, normal sclerae CARDIO: reg rate, S1/2 heard without m/g/r LUNGS: CTA bilaterally, no crackles, rales or wheezes, good diaphragmatic excursion ABD: soft, areas of protuberance around significant scarring, TTP generally, + BS hyperactive EXTREMITY: RP and DP palpable 2+ bilat, no LE swelling or edema, extremities are warm and well-perfused NEURO: CN 2-12 grossly intact, sensation intact throughout, no gross focal deficit MUSC: moves all extremities with ease, no gross focal deficits SKIN: warm and dry Laboratory Results: Last 24 Hours Test 05/13/16 15:20 05/13/16 15:45 05/13/16 18:22 05/13/16 20:05 Urine Color YELLOW Urine Appearance CLEAR Urine pH 7.5 Urine Specific [place] 1.004 Urine Protein NEG Urine Glucose (UA) NEG Urine Ketones NEG Urine Occult Blood NEG Urine Nitrite NEG Urine Bilirubin NEG Urine Urobilinogen NEG Urine Leukocyte Esterase TRACE Urine WBC (Auto) 1-5 /hpf Urine RBC (Auto) 0-4 /hpf Urine Hyaline Casts (Auto) 0 /lpf Urine Epithelial Cells (Auto) 5-10 /lpf Urine Bacteria (Auto) NEG White Blood Count 6.84 K/uL Red Blood Count 3.89 M/uL Hemoglobin 12.0 g/dL Hematocrit 37.9 % Mean Corpuscular Volume 97.4 fL Mean Corpuscular Hemoglobin 30.8 pg Mean Corpuscular Hemoglobin Concent 31.7 g/dl Platelet Count 140 K/uL Mean Platelet Volume 9.8 fL Neutrophils (%) (Auto) 70.0 % Lymphocytes (%) (Auto) 14.2 % Monocytes (%) (Auto) 11.5 % Eosinophils (%) (Auto) 4.1 % Basophils (%) (Auto) 0.1 % Neutrophils # (Auto) 4.78 K/uL Lymphocytes # (Auto) 0.97 K/uL Monocytes # (Auto) 0.79 K/uL Eosinophils # (Auto) 0.28 K/uL Basophils # (Auto) 0.01 K/uL RDW Standard Deviation 54.4 fL RDW Coefficient of Variation 15.4 % Immature Granulocyte % (Auto) 0.1 % Immature Granulocyte # (Auto) 0.01 K/uL Prothrombin Time 10.8 SECONDS Prothromb Time International Ratio 1.0 Activated Partial Thromboplast Time 24.6 SECONDS Partial Thromboplastin Ratio 0.9 Sodium Level 144 mmol/L Potassium Level 4.1 mmol/L Chloride Level 107 mmol/L Carbon Dioxide Level 29 mmol/L Anion Gap 8.0 mmol/L Blood Urea Nitrogen 32 mg/dl Creatinine 1.00 mg/dl Est Creatinine Clear Calc Drug Dose 49.8 ml/min Estimated GFR () 61.2 Estimated GFR (Non- 52.8 BUN/Creatinine Ratio 32.0 Random Glucose 116 mg/dl Calcium Level 8.9 mg/dl Total Bilirubin 0.3 mg/dl Aspartate Amino Transf (AST/SGOT) 25 U/L Alanine Aminotransferase (ALT/SGPT) 24 U/L Alkaline Phosphatase 109 U/L Total Creatine Kinase 59 U/L Creatine Kinase MB 1.3 ng/ml Creatine Kinase MB Ratio 2.2 Troponin I 0.022 ng/ml Pro-B-Type Natriuretic Peptide 9392 pg/ml Total Protein 6.3 gm/dl Albumin 3.2 gm/dl Globulin 3.1 gm/dl Albumin/Globulin Ratio 1.0 Influenza Type A Antigen Neg for Influ A Influenza Type B Antigen Neg for Influ B Arterial Blood pH 7.41 Arterial Blood Partial Pressure CO2 47 mmHg Arterial Blood Partial Pressure O2 81 mm/Hg Arterial Blood HCO3 29 mmol/L Arterial Blood Oxygen Saturation 95.7 % Arterial Blood Base Excess 4.0 mEq/L Arterial Blood Gas Delivery 2 LITERS Jose Alberto Test POS Test 05/13/16 20:12 05/14/16 05:20 05/14/16 06:31 05/14/16 11:16 Bedside Glucose 147 mg/dl 227 mg/dl 282 mg/dl White Blood Count 7.18 K/uL Red Blood Count 3.93 M/uL Hemoglobin 12.2 g/dL Hematocrit 38.9 % Mean Corpuscular Volume 99.0 fL Mean Corpuscular Hemoglobin 31.0 pg Mean Corpuscular Hemoglobin Concent 31.4 g/dl RDW Standard Deviation 55.7 fL RDW Coefficient of Variation 15.2 % Platelet Count 138 K/uL Mean Platelet Volume 9.7 fL Sodium Level 141 mmol/L Potassium Level 4.9 mmol/L Chloride Level 104 mmol/L Carbon Dioxide Level 30 mmol/L Anion Gap 7.0 mmol/L Blood Urea Nitrogen 32 mg/dl Creatinine 1.20 mg/dl Est Creatinine Clear Calc Drug Dose 38.6 ml/min Estimated GFR () 49.1 Estimated GFR (Non- 42.4 BUN/Creatinine Ratio 26.3 Random Glucose 219 mg/dl Calcium Level 9.1 mg/dl Assessment & Plan ACUTE HYPOXIC RESPIRATORY FAILURE, LIKELY MULTIFACTORIAL DUE TO ACUTE DIASTOLIC CHF AND/OR COPD EXACERBATION - patient presenting with cough and SOB x 3 days; infuenza outbreak at snf however patient has been on prophylactic [place] since 05/05 - 87% on room air on arrival, improved with oxygen 2L via NC -started Prednisone 20mg BID - around the clock nebs--> changed to PRN on 05/14 - continue home inhaled corticosteroid - s/p Levaquin in ED, Doxy started on 05/14 2/2 prolonged QTc - s/p Lasix 40mg IV in ED, Lasix 20mg PO BID today - I/Os, daily weights, low Na+ diet - echo 05/04/16 - EF 60-64%, grade I diastolic dysfunction -->breathing has improved overnight (Lasix IV changed to PO) MITRAL VALVE ANOMALY - admission in 03/2016 for chest pain and found to have mitral valve abnormality ; etiologies included possible calcified ruptured chord, versus healed vegetation, although SBE cannot be excluded (had negative blood cultures). Repeat echo 05/04/16 was unchanged. Repeat echo ordered to re-evaluate -cardio consult with recs to repeat echo -auscultated 3/ diastolic murmur today in central sternal area (mitral stenosis ?) CONSTIPATION - on Sennalax routinely BID - KUB showing fecal retention -suppository overnight with small output -ordered Fleets oil enema now to help with discomfort-->likely the cause of her abdominal discomfort, abdominal distension -also increased Lactulose to 20gm PO TID for 48 hrs ATRIAL FIBRILLATION - rhythm controlled on amiodarone, rate controlled on metoprolol - not anticoagulated due to hx of hemorrhagic pericardial effusion and subdural hematoma s/p fall SSS S/P PACER - no acute issues HTN - BP controlled, continue clonidine, hydralazine, and metoprolol DM - hgb a1c 7.0 03/2016 - hold oral agents and utilize SSI while hospitalized GERD, HIATAL HERNIA - continue PPI/H2 filipe HYPOTHYROIDISM - continue levothyroxine DEPRESSION - continue sertraline DVT PROPHYLAXIS - SCDs due to hx of hemorrhagic pericardial effusion and subdural hematoma CODE STATUS DNR DO [facility] Hospital[facility] Consultants: Cards Current Inpatient Medications: Current Inpatient Medications Medications (Trade) Dose Ordered Sig/Srinivas Route Start Time Stop Time Status Last Admin Dose Admin Acetaminophen (Tylenol Tab) 650 mg Q4H PRN PO 05/13/16 18:30 06/12/16 18:29 Ondansetron HCl (Zofran Inj) 4 mg Q6H PRN IV 05/13/16 18:30 06/12/16 18:29 Albuterol/ Ipratropium (Duoneb) 3 ml QIDR INH 05/13/16 20:00 06/12/16 19:59 05/14/16 11:16 3 ML Albuterol/ Ipratropium (Duoneb) 3 ml Q2H PRN INH 05/13/16 18:45 06/12/16 18:44 Prednisone 20 mg 20 mg BID PO 05/13/16 21:00 06/12/16 20:59 05/14/16 08:01 20 MG Doxycycline Hyclate 100 mg/ Dextrose 110 ml @ 50 mls/hr BID@0800,2000 IV 05/14/16 08:00 05/21/16 07:59 05/14/16 08:06 50 MLS/HR Furosemide/Syringe (Lasix Inj/ Syringe) 2 ml @ 4 mls/min BID17 IV 05/14/16 09:00 06/13/16 08:59 05/14/16 07:58 4 MLS/MIN Amiodarone HCl (Cordarone Tab) 200 mg DAILY PO 05/14/16 09:00 06/13/16 08:59 05/14/16 08:00 200 MG Atorvastatin Calcium (Lipitor Tab) 20 mg DAILY PO 05/14/16 09:00 06/13/16 08:59 05/14/16 07:59 20 MG Clonidine HCl (Catapres Tab) 0.1 mg BID PO 05/13/16 21:00 06/12/16 20:59 05/14/16 08:04 0.1 MG Fluticasone Propionate (Flonase Nasal [place]) 2 sprays DAILY NA 05/14/16 09:00 06/13/16 08:59 05/14/16 08:04 2 SPRAYS Gabapentin (Neurontin Cap) 100 mg TID PO 05/13/16 21:00 06/12/16 20:59 05/14/16 08:01 100 MG Guaifenesin (Mucinex Contr Rel Tab) 600 mg DAILY PO 05/14/16 09:00 06/13/16 08:59 05/14/16 07:59 600 MG Hydralazine HCl (Apresoline Tab) 25 mg TID PO 05/13/16 21:00 06/12/16 20:59 05/14/16 08:05 25 MG Lactulose (Chronulac Syrup) 10 gm DAILY PO 05/14/16 09:00 06/13/16 08:59 05/14/16 07:57 10 GM Levothyroxine Sodium (Synthroid Tab) 50 mcg DAILYBB PO 05/14/16 06:00 06/13/16 05:59 05/14/16 06:13 50 MCG Metoprolol Tartrate (Lopressor Tab) 50 mg BID PO 05/13/16 21:00 06/12/16 20:59 05/14/16 08:03 50 MG Mirtazapine (Remeron Tab) 15 mg HS PO 05/13/16 21:00 06/12/16 20:59 05/13/16 21:27 15 MG Montelukast Sodium (Singulair Tab) 10 mg HS PO 05/14/16 21:00 06/13/16 20:59 Ranitidine HCl (zANTac TAB) 150 mg BID PO 05/13/16 21:00 06/12/16 20:59 05/14/16 08:00 150 MG Senna/Docusate Sodium (Senokot S Tab) 2 tab BID PO 05/13/16 21:00 06/12/16 20:59 05/14/16 08:01 2 TAB Sertraline HCl (Zoloft Tab) 100 mg DAILY PO 05/14/16 09:00 06/13/16 08:59 05/14/16 07:59 100 MG Tramadol HCl (Ultram Tab) 50 mg Q6H PRN PO 05/13/16 19:00 06/12/16 18:59 Miscellaneous Information (Order Awaiting Action) 1 ea QS N/A 05/14/16 00:00 06/13/16 00:00 Ferrous Sulfate (Feosol Tab) 325 mg DAILY PO 05/14/16 09:00 06/13/16 08:59 05/14/16 08:00 325 MG Miscellaneous Information (Order Awaiting Action) 1 ea QS N/A 05/14/16 00:00 06/13/16 00:00 Miscellaneous Information (Order Awaiting Action) 1 ea QS N/A 05/14/16 00:00 06/13/16 00:00 Pantoprazole Sodium (Protonix Tab) 40 mg BID PO 05/13/16 21:00 06/12/16 20:59 05/14/16 08:01 40 MG Polyethylene (Miralax Powder Packet) 17 gm DAILY PRN PO 05/13/16 20:15 06/12/16 20:14 Insulin Aspart (novoLOG ASPART) SLIDING SCALE If C... ACHS SC 05/13/16 21:00 06/12/16 20:59 05/14/16 12:13 7 UNITS Glucose (Glucose 40% Gel) 15-30 GRAMS 15 GRAMS... UD PRN PO 05/13/16 19:00 06/12/16 18:59 Glucose (Glucose Chew Tab) 4-8 Tablets 4 Tabl... UD PRN PO 05/13/16 19:00 06/12/16 18:59 Dextrose (Dextrose 50% 50ML Syringe) 25-50ML OF 50% DW IV FOR... UD PRN IV 05/13/16 19:00 06/12/16 18:59 Glucagon (Glucagon Inj) 1 mg UD PRN SQ 05/13/16 19:00 06/12/16 18:59
[2016-05-14] MEDS: FUROSEMIDE 20 MG TAB PO SCH (17:10)
[2016-05-14] MEDS: MIRTAZAPINE TAB 15 MG TAB PO SCH (21:55)
[2016-05-14] MEDS: MONTELUKAST SOD 10 MG TAB PO SCH (21:56)
[2016-05-14] MEDS: DOXYCYCLINE HYCLATE 100 MG CAP PO SCH (21:56)
[2016-05-15] VITALS (12 sets, daily range): BP systolic 109–191; BP diastolic 58–93; PULSE 60–70; TEMP 36.3–36.8; O2SAT 92–99
[2016-05-15 05:07] LABS: HEMATOCRIT 37.6 % (37-47); MEAN CELL VOLUME 97.4 fL (80-100); MEAN CORPUSCULAR HEMOGLOBIN 30.6 pg (25-34); MEAN CORPUSCULAR HGB CONC 31.4 g/dl (32-36); MEAN PLATELET VOLUME 9.6 fL (7.4-10.4); PLATELET COUNT 154 K/uL (130-400); RED BLOOD COUNT 3.86 M/uL (4.2-5.4); WHITE BLOOD COUNT 8.44 K/uL (4.8-10.8)
[2016-05-15 05:30] LABS: BUN/CREATININE RATIO 27.2 (10-20); CALCIUM 8.9 mg/dl (8.5-10.1); CREATININE 1.3 mg/dl (0.60-1.20); POTASSIUM 4.4 mmol/L (3.5-5.1)
[2016-05-15] MEDS: LEVOTHYROXINE 50 MCG TAB PO SCH (05:58)
[2016-05-15] MEDS: ALBUT/IPRATROP 3MG/0.5MG NEB 3 ML VIAL INH SCH (07:45)
[2016-05-15] MEDS: GUAIFENESIN 600 MG TABCR PO SCH (08:02)
[2016-05-15] MEDS: ATORVASTATIN 20 MG TAB PO SCH (08:02)
[2016-05-15] MEDS: DOCUSATE SODIUM/SENNA 50/8.6MG TAB PO SCH ×2 (08:02→20:47)
[2016-05-15] MEDS: SERTRALINE HCL 100 MG TAB PO SCH (08:03)
[2016-05-15] MEDS: CLONIDINE HCL 0.1 MG TAB PO SCH ×2 (08:03→20:45)
[2016-05-15] MEDS: PANTOprazole SOD 40 MG TAB PO SCH ×2 (08:04→20:47)
[2016-05-15] MEDS: FUROSEMIDE 20 MG TAB PO SCH ×2 (08:04→17:01)
[2016-05-15] MEDS: FERROUS SULFATE 325 MG TAB PO SCH (08:04)
[2016-05-15] MEDS: DOXYCYCLINE HYCLATE 100 MG CAP PO SCH ×2 (08:04→20:48)
[2016-05-15] MEDS: GABAPENTIN 100 MG CAP PO SCH ×3 (08:04→20:46)
[2016-05-15] MEDS: METOPROLOL TARTRATE 50 MG TAB PO SCH ×2 (08:04→20:46)
[2016-05-15] MEDS: RANITIDINE HCL 150 MG TAB PO SCH ×2 (08:04→20:48)
[2016-05-15] MEDS: AMIODARONE 200 MG TAB PO SCH (08:05)
[2016-05-15] MEDS: FLUTICASONE PROPIONATE NA SPR 16 GM BTL SCH (08:05)
[2016-05-15] MEDS: LACTULOSE SYRUP 20 GM/30 ML UDC PO SCH ×3 (08:06→20:44)
[2016-05-15] MEDS: INSULIN ASPART 100 UNITS/ML 3 ML PEN SC SCH ×4 (08:08→20:52)
[2016-05-15] MEDS ORDERED: PHARMACY GLYCEMIC MGMT CONSULT PRN (08:45)
--- NOTE | 2016-05-15 09:19 | Cardiology Follow-Up ---
Subjective General Date of Service: May 15, 2016. Chief Complaint: SOB Pt evaluation today including: conversation w/ patient, physical exam, chart review, lab review, review of studies, review of inpatient medication list History of Present Illness Patient feeling better this AM. Primary concern is ongoing abdominal pain and constipation. Also notes ongoing productive cough. SOB improved. No orthopnea, PND or LE edema. No chest pain No palpitations, dizziness, syncope or near syncope. Allergies Coded Allergies: Penicillins (Verified Allergy, Mild, rash, 05/13/16) Morphine (Verified Allergy, Unknown, UNKNOWN, 05/13/16) Codeine (Verified Adverse Reaction, Unknown, MAKES ME HIGH, 05/13/16) Social History Smoking Status: Never Smoker Hx Tobacco Use In Past Year?: No Hx Alcohol Use - Type And Amou: No Hx Substance Use - Type And Am: No Problem List Medical Problems: (1) Abdominal pain Status: Acute (2) Chest pain Status: Acute (3) CHF (congestive heart failure) Status: Acute (4) Chronic obstructive pulmonary disease Status: Acute (5) Constipation Status: Acute (6) Cough Status: Acute (7) Hypoxia Status: Acute (8) Left sided chest pain Status: Acute (9) Pneumonia Status: Acute (10) Shortness of breath Status: Acute (11) Symptomatic bradycardia Status: Acute (12) Traumatic intracranial hemorrhage Status: Acute Review of Systems Respiratory: + cough, + sputum, No dyspnea at rest, No dyspnea on exertion, No hemoptysis, No wheezing Cardiac: No PND, No chest pain, No edema, No orthopnea, No palpitations Physical Exam Vital Signs Last Vital Signs Documentation Date Time Temp Pulse Resp B/P Pulse Ox O2 Delivery O2 Flow Rate FiO2 05/15/16 08:00 92 Room Air 05/15/16 07:45 65 20 05/15/16 07:15 36.6 185/93 181/93 05/14/16 07:33 2.0 Physical Exam Constitutional: General Apperance: overweight Level of Distress: NAD, chronically ill Psychiatric: Mental Status: active & alert Orientation: to time, to place, to person Memory: recent memory normal Eyes: Pupils: PERRLA Neck: supple Lungs: Auscultation: no wheezing, no rales/crackles, deminished air movement Cardiovascular: Heart Auscultation: RRR, normal S1, normal S2, II/ SAMANTHA Abdomen: Bowel Sounds: normal Inspection & Palpation: soft, no tenderness, guarding & rebound Extremities: no edema Assessment and Plan Assessment and Plan ASSESSMENT: 1. Acute respiratory distress, likely multifactorial with combined acute on chronic diastolic HF exacerbation and COPD exacerbation 2. Mitral valve abnormality noted on prior echo/SEJAL. Blood cultures negative on multiple occasions during prior inpatient stay and repeat as outpatient. Anticoagulation contraindicated. Echo pending 3. Status post permanent pacemaker for sick sinus syndrome. 4. Paroxysmal atrial fibrillation. Currently Atrial paced. No anticoagulation therapy 5. Mechanical fall November 2015 with a subdural hematoma. 6. Labile hypertension - readings range 110-190/60-90 mmHg 7. Constipation RECOMMENDATIONS: Echocardiogram pending. Most of BP readings since admission have been above goal. Start low dose losartan 25 mg daily. (Previously on 50-100 mg daily). Monitor renal function closely. Continue Metoprolol, clonidine, hydralazine. Oral furosemide resumed, low dose 20 mg BID. On admission she was taking furosemide 40 mg BID. Would discharge on higher dose. Case to be discussed with Dr. Sprague. Will follow. CARDIOLOGY ATTENDING ADDENDUM: The patient was seen and personally examined. Agree with Tracy Greene PA-C's findings and plans as documented above with additions as below. S: pt states SOB is improved, still complains of constipation, had BM yesterday and today. Exam: regular rhythm Data: TTecho: normal LVEF, mitral valve abnormality unchanged compared to recent inpt echo from 03/2016 and outpt echo early April,. Imp, Plan: as above. Laboratory Results Last 24 Hours Test 05/14/16 11:16 05/14/16 16:11 05/14/16 20:20 05/15/16 04:52 Bedside Glucose 282 mg/dl 183 mg/dl 218 mg/dl White Blood Count 8.44 K/uL Red Blood Count 3.86 M/uL Hemoglobin 11.8 g/dL Hematocrit 37.6 % Mean Corpuscular Volume 97.4 fL Mean Corpuscular Hemoglobin 30.6 pg Mean Corpuscular Hemoglobin Concent 31.4 g/dl RDW Standard Deviation 53.1 fL RDW Coefficient of Variation 15.1 % Platelet Count 154 K/uL Mean Platelet Volume 9.6 fL Sodium Level 139 mmol/L Potassium Level 4.4 mmol/L Chloride Level 101 mmol/L Carbon Dioxide Level 31 mmol/L Anion Gap 7.0 mmol/L Blood Urea Nitrogen 35 mg/dl Creatinine 1.30 mg/dl Est Creatinine Clear Calc Drug Dose 35.6 ml/min Estimated GFR () 44.6 Estimated GFR (Non- 38.4 BUN/Creatinine Ratio 27.2 Random Glucose 269 mg/dl Calcium Level 8.9 mg/dl Test 05/15/16 06:46 Bedside Glucose 273 mg/dl
[2016-05-15] MEDS ORDERED: LOSARTAN POTASSIUM 25 MG TAB PO ONE (10:22)
[2016-05-15] MEDS ORDERED: MINERAL OIL ENEMA 133 ML BTL PR ONE (10:30)
[2016-05-15] MEDS: ALBUT/IPRATROP 3MG/0.5MG NEB 3 ML VIAL INH PRN (11:16)
--- NOTE | 2016-05-15 13:04 | Pharmacy Progress Note ---
Glycemic Control: Progress Nt Date of Service May 15, 2016. Scope Glycemic Pharmacist consulted by Dr Hinton on 05/15/16 for glycemic control and to write orders per [facility] inpatient glycemic control protocol. Objective Accuchecks BSG (last 24hrs): Test 05/14/16 16:11 05/14/16 20:20 05/15/16 04:52 05/15/16 06:46 Bedside Glucose 183 mg/dl (70-90) 218 mg/dl (70-90) 273 mg/dl (70-90) Random Glucose 269 mg/dl (70-99) Test 05/15/16 11:13 Bedside Glucose 249 mg/dl (70-90) Laboratory Data (last 24hrs) Test 05/15/16 04:52 Anion Gap 7.0 mmol/L BUN/Creatinine Ratio 27.2 Blood Urea Nitrogen 35 mg/dl Creatinine 1.30 mg/dl Potassium Level 4.4 mmol/L Sodium Level 139 mmol/L White Blood Count 8.44 K/uL Recent Pertinent Medications Outpatient Anti-diabetic Regimen: * glipizide ER 2.5mg PO daily * A1c = 7 % 03/2016 The patient is currently receiving: * Basal insulin: None at this time * Correctional Insulin: NovoLog Correction per scale AC/HS Goal Range: Low 120 mg/dL - High 160 mg/dL Correction Factor: 45 mg/dL/unit * Prandial insulin: Per carb ratio of 1 unit per 16 grams CHO consumed Risk Factors for Insulin Resistance: * Steroids: Prednisone 20mg PO BID * Infection: Doxy PO * Diet: T2DM/ Low Na Assessment & Plan ASSESSMENT: * ADA & AACE recommend a goal blood sugar range 140-180 mg/dl for the majority of critically ill & non-critically ill patients. However, more stringent targets may be selected in individual cases. 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 * Outpatient control appropriate based on A1c * Currently, experiencing hyperglycemia secondary to BID prednisone * Tighten NovoLog parameters * add additional Accu-checks overnight until euglycemic * Taper insulin doses at steroids decrease * Fasting BSG elevated both yesterday and today * one time dose of Lantus and then reassess need for basal insulin PLAN FOR INPATIENT GLYCEMIC CONTROL: * Lantus 10 units SQ x1 dose today * NovoLog AC and HS * Add Accu-checks at 00:00 and 04:00 * Tighten correction factor to 35mg/dL/unit * Tighten carb ratio to 1 unit per 12g of CHO consumed - CF/CR based on patient's weight and a stress of ~1.5 * Goal range 120-160mg/dL * A1c - current * added to discharge instructions RECOMMENDATIONS FOR DISCHARGE: * continue home glipizide * Please note that the plan above was derived based on current level of insulin resistance and hospital stress. These recommendations are appropriate for inpatient admission only. Plan of care upon discharge will need to be reassessed to avoid potential outpatient hypo/hyperglycemia. Thank you.
[2016-05-15] MEDS ORDERED: LANTUS PER UNIT CHARGE SQ SCH (13:15)
--- NOTE | 2016-05-15 13:27 | ECHOCARDIOGRAM REPORT ---
*NOTICE TO RECEIVING DEMOCRAT AGENCY This information is strictly Confidential and protected under [place] law. [place] law prohibits you from making any further disclosure of this information unless further disclosure is expressly permitted by the written consent of the person to whom it pertains or is authorized by law. A general authorization for the release of medical or other information is not sufficient for this purpose. Hospital accepts no responsibility if the information is made available to any other person, INCLUDING THE PATIENT. Interpretation Summary * Name: OLIVIA AVERY Study Date: 05/14/2016 01:35 PM BP: 178/83 mmHg * Patient Location: [facility] HR: 57 * : 1935 (M/d/yyyy) Gender: Female Height: 62 in * Age: 80 yrs Ethnicity: CA Weight: 200 lb * Ordering Physician: Deon Rodriguez DO * Referring Physician: Deon Rodriguez DO * Performed By: Anne Hurt RCS * * Reason For Study: Endocarditis * BSA: 1.9 m2 * -- Conclusions -- * Sinus rhythm was present during the echocardiogram. * There is a 0.6cm x 0.6cm mobile echodensity attached to ventricular surface of the mitral valve annulus near the left ventricular outflow tract. * Calcified mitral apparatus. * The aortic valve is moderately calcified. * Mild valvular aortic stenosis. * Moderate aortic regurgitation. * The left ventricular wall motion is normal. * Ejection Fraction = 60-65%. * Grade I diastolic dysfunction, (abnormal relaxation pattern). * Compared to the most recent echocardiogram, the echodensity is unchanged. Procedure Details * A complete two-dimensional transthoracic echocardiogram was performed (2D, M-mode, Doppler and color flow Doppler). Left Ventricle * The left ventricle is normal in size. * There is moderate concentric left ventricular hypertrophy. * Ejection Fraction = 60-65%. * Left ventricular systolic function is normal. * The left ventricular wall motion is normal. Right Ventricle * The right ventricle is normal size. * The right ventricular systolic function is normal as assessed by tricuspid annular plane systolic excursion (TAPSE) (normal >1.5 cm). Atria * The left atrium is mildly dilated. * Right atrial size is normal. * There is a pacemaker lead in the right atrium. * There is no evidence of atrial septal defect, but resolution does not allow assessment for a patent foramen ovale. Mitral Valve * Calcified mitral apparatus. * There is a 0.6cm x 0.6cm mobile echodensity attached to ventricular surface of the mitral valve annulus near the left ventricular outflow tract. * There is no mitral valve stenosis. * Significant mitral regurgitation is absent. Tricuspid Valve * The tricuspid valve is normal. * There is no tricuspid stenosis. * Significant tricuspid regurgitation is absent. * Doppler findings do not suggest pulmonary hypertension. Aortic Valve * The aortic valve is trileaflet. * The aortic valve is moderately calcified. * Mild valvular aortic stenosis. * Moderate aortic regurgitation. Pulmonic Valve * The pulmonary valve is not well seen, but the Doppler examination is normal without significant regurgitation or stenosis. Great Vessels * The aortic root and proximal ascending aorta are normal sized. Pericardium/Pleural * There is no pericardial effusion. Right Ventricle * There is a pacemaker lead in the right ventricle. Great Vessels * Normal inferior vena cava diameter and respiratory variation suggests normal central venous pressure. * Normal inferior vena cava size and collapsability with sniff indicates a normal right atrial pressure of 3 mmHg Left Ventricular Diastolic Function * Grade I diastolic dysfunction, (abnormal relaxation pattern). MMode 2D Measurements and Calculations IVSd 1.1 cm IVSs 1.5 cm LVIDd 5.9 cm LVIDs 4.0 cm LVPWd 1.1 cm LVPWs 1.5 cm IVS/LVPW 1.0 FS 33.3 % EDV(Teich) 175.2 ml ESV(Teich) 68.2 ml EF(Teich) 61.1 % EDV(cubed) 208.5 ml ESV(cubed) 62.0 ml EF(cubed) 70.3 % % IVS thick 36.2 % % LVPW thick 37.9 % LV mass(C)d 271.6 grams LV mass(C)dI 142.1 grams/m\S\2 LV mass(C)s 228.5 grams LV mass(C)sI 119.5 grams/m\S\2 CO(Teich) 6.4 l/min CI(Teich) 3.4 l/min/m\S\2 SV(Teich) 107.0 ml SI(Teich) 56.0 ml/m\S\2 CO(cubed) 8.8 l/min CI(cubed) 4.6 l/min/m\S\2 SV(cubed) 146.5 ml SI(cubed) 76.6 ml/m\S\2 Ao root diam 4.0 cm Ao root area 12.8 cm\S\2 LA dimension 4.3 cm LA/Ao 1.1 LVOT diam 2.0 cm LVOT area 3.2 cm\S\2 LVAd ap4 28.5 cm\S\2 LVLd ap4 7.8 cm EDV(MOD-sp4) 84.0 ml LVAs ap4 16.1 cm\S\2 LVLs ap4 6.5 cm ESV(MOD-sp4) 33.0 ml EF(MOD-sp4) 60.7 % LVAd ap2 24.4 cm\S\2 LVLd ap2 7.6 cm EDV(MOD-sp2) 64.0 ml LVAs ap2 13.4 cm\S\2 LVLs ap2 6.1 cm ESV(MOD-sp2) 25.0 ml EF(MOD-sp2) 60.9 % CO(MOD-sp4) 3.1 l/min CI(MOD-sp4) 1.6 l/min/m\S\2 SV(MOD-sp4) 51.0 ml SI(MOD-sp4) 26.7 ml/m\S\2 CO(MOD-sp2) 2.3 l/min CI(MOD-sp2) 1.2 l/min/m\S\2 SV(MOD-sp2) 39.0 ml SI(MOD-sp2) 20.4 ml/m\S\2 Doppler Measurements and Calculations MV E max sia 152.7 cm/sec MV A max sia 170.4 cm/sec MV E/A 0.90 MV P1/2t max sia 162.1 cm/sec MV P1/2t 98.7 msec MVA(P1/2t) 2.2 cm\S\2 MV dec slope 480.8 cm/sec\S\2 MV dec time 0.33 sec Ao V2 max 249.8 cm/sec Ao max PG 25.0 mmHg Ao max PG (full) 16.8 mmHg Ao V2 mean 164.8 cm/sec Ao mean PG 12.6 mmHg Ao mean PG (full) 8.5 mmHg Ao V2 VTI 55.4 cm MAURA(I,A) 2.0 cm\S\2 MAURA(I,D) 2.0 cm\S\2 MAURA(V,A) 1.9 cm\S\2 MAURA(V,D) 1.9 cm\S\2 AI max sia 484.2 cm/sec AI max PG 93.8 mmHg AI dec slope 306.2 cm/sec\S\2 AI P1/2t 463.2 msec LV V1 max PG 8.2 mmHg LV V1 mean PG 4.1 mmHg LV V1 max 143.3 cm/sec LV V1 mean 92.7 cm/sec LV V1 VTI 33.9 cm SV(Ao) 708.0 ml SI(Ao) 370.4 ml/m\S\2 SV(LVOT) 110.1 ml SI(LVOT) 57.6 ml/m\S\2 PA V2 max 103.8 cm/sec PA max PG 4.3 mmHg PI max sia 270.1 cm/sec PI max PG 29.2 mmHg PI dec slope 189.2 cm/sec\S\2 PI P1/2t 418.1 msec TR max sia 279.4 cm/sec
--- NOTE | 2016-05-15 17:42 | Progress Note ---
Medicine Progress Note Date & Time of Visit: May 15, 2016 at 09:53. Subjective abdominal pain improved feels incomplete evacuation-->enema reordered for this am in addition to lactulose TID tolerated breakfast off oxygen, no inc work of breathing-Duonebs to q6h prn cards for dispo after TTE yesterday RE: mitral valve Objective Last 8 Hrs Date Time Temp Pulse Resp B/P Pulse Ox O2 Delivery O2 Flow Rate FiO2 05/15/16 08:00 92 Room Air 05/15/16 07:45 65 20 93 Room Air 05/15/16 07:15 36.6 62 20 185/93 92 Room Air 181/93 05/15/16 04:17 176/58 05/15/16 04:16 Room Air 05/15/16 03:38 36.3 61 19 191/74 92 Room Air Physical Exam: GEN: WNWD, in mild discomfort because she has to use the bathroom/pass gas, alert and appropriate HEENT: NC/AT, normal sclerae CARDIO: reg rate, S1/2 heard without m/g/r LUNGS: CTA bilaterally, no crackles, rales or wheezes, good diaphragmatic excursion ABD: soft, areas of protuberance around significant scarring, TTP generally, + BS hyperactive EXTREMITY: RP and DP palpable 2+ bilat, no LE swelling or edema, extremities are warm and well-perfused NEURO: CN 2-12 grossly intact, sensation intact throughout, no gross focal deficit MUSC: moves all extremities with ease, no gross focal deficits SKIN: warm and dry Laboratory Results: Last 24 Hours Test 05/14/16 11:16 05/14/16 16:11 05/14/16 20:20 05/15/16 04:52 Bedside Glucose 282 mg/dl 183 mg/dl 218 mg/dl White Blood Count 8.44 K/uL Red Blood Count 3.86 M/uL Hemoglobin 11.8 g/dL Hematocrit 37.6 % Mean Corpuscular Volume 97.4 fL Mean Corpuscular Hemoglobin 30.6 pg Mean Corpuscular Hemoglobin Concent 31.4 g/dl RDW Standard Deviation 53.1 fL RDW Coefficient of Variation 15.1 % Platelet Count 154 K/uL Mean Platelet Volume 9.6 fL Sodium Level 139 mmol/L Potassium Level 4.4 mmol/L Chloride Level 101 mmol/L Carbon Dioxide Level 31 mmol/L Anion Gap 7.0 mmol/L Blood Urea Nitrogen 35 mg/dl Creatinine 1.30 mg/dl Est Creatinine Clear Calc Drug Dose 35.6 ml/min Estimated GFR () 44.6 Estimated GFR (Non- 38.4 BUN/Creatinine Ratio 27.2 Random Glucose 269 mg/dl Calcium Level 8.9 mg/dl Test 05/15/16 06:46 Bedside Glucose 273 mg/dl Assessment & Plan 80 yoF with significant heart history and valve issues admitted for increased work of breathing 2/2 CHF exacerbation. ACUTE HYPOXIC RESPIRATORY FAILURE, LIKELY MULTIFACTORIAL DUE TO ACUTE DIASTOLIC CHF AND/OR COPD EXACERBATION - patient presenting with cough and SOB x 3 days; [facility] however patient has been on prophylactic [place] since 05/05 - 87% on room air on arrival, improved with oxygen 2L via NC -started Prednisone 20mg BID - around the clock nebs--> changed to PRN on 05/14 - continue home inhaled corticosteroid - s/p Levaquin in ED, Doxy started on 05/14 2/2 prolonged QTc - s/p Lasix 40mg IV in ED, Lasix 20mg PO BID 05/14 - I/Os, daily weights, low Na+ diet - echo 05/04/16 - EF 60-64%, grade I diastolic dysfunction -->breathing has improved for the last two days-cont Lasix -->repeat TTE on 05/14 reveals: * Calcified mitral apparatus. * The aortic valve is moderately calcified. * Mild valvular aortic stenosis. * Moderate aortic regurgitation. * The left ventricular wall motion is normal. * Ejection Fraction = 60-65%. * Grade I diastolic dysfunction, (abnormal relaxation pattern). * Compared to the most recent echocardiogram, the echodensity is unchanged. -->per Cards, started lower dose Losartan and want PRP followed. Cont current management. MITRAL VALVE ANOMALY - admission in 03/2016 for chest pain and found to have mitral valve abnormality ; etiologies included possible calcified ruptured chord, versus healed vegetation, although SBE cannot be excluded (had negative blood cultures). Repeat echo 05/04/16 was unchanged. Repeat echo ordered to re-evaluate -cardio consult with recs to repeat echo -auscultated 3/6 diastolic murmur today in central sternal area (mitral stenosis ?)-unchanged CONSTIPATION - on Sennalax routinely BID - KUB showing fecal retention -suppository overnight with small output -ordered Fleets oil enema now to help with discomfort-->likely the cause of her abdominal discomfort, abdominal distension -also increased Lactulose to 20gm PO TID for 48 hrs -->improvement with BM but incomplete evacuation and still is uncomfortable, + abd pain on exam improved today but still present. -->repeat enema ordered today, cont Lactulose TID scheduled. ATRIAL FIBRILLATION - rhythm controlled on amiodarone, rate controlled on metoprolol - not anticoagulated due to hx of hemorrhagic pericardial effusion and subdural hematoma s/p fall SSS S/P PACER - no acute issues HTN - BP controlled, continue clonidine, hydralazine, and metoprolol -->Cards started Losartan 25mg PO daily on 05/15 DM - hgb a1c 7.0 03/2016 - hold oral agents and utilize SSI while hospitalized GERD, HIATAL HERNIA - continue PPI/H2 filipe HYPOTHYROIDISM - continue levothyroxine DEPRESSION - continue sertraline DVT PROPHYLAXIS - SCDs due to hx of hemorrhagic pericardial effusion and subdural hematoma CODE STATUS DNR DISPO: per Cardiology team and needs to have improvement in abdominal pain with distension and severe constipation. DO Maxx Grajeda Hospital[facility] Consultants: Cards Current Inpatient Medications: Current Inpatient Medications Medications (Trade) Dose Ordered Sig/Srinivas Route Start Time Stop Time Status Last Admin Dose Admin Acetaminophen (Tylenol Tab) 650 mg Q4H PRN PO 05/13/16 18:30 06/12/16 18:29 Ondansetron HCl (Zofran Inj) 4 mg Q6H PRN IV 05/13/16 18:30 06/12/16 18:29 Prednisone (PredniSONE TAB) 20 mg BID PO 05/13/16 21:00 06/12/16 20:59 05/15/16 08:03 20 MG Amiodarone HCl (Cordarone Tab) 200 mg DAILY PO 05/14/16 09:00 06/13/16 08:59 05/15/16 08:05 200 MG Atorvastatin Calcium (Lipitor Tab) 20 mg DAILY PO 05/14/16 09:00 06/13/16 08:59 05/15/16 08:02 20 MG Clonidine HCl (Catapres Tab) 0.1 mg BID PO 05/13/16 21:00 06/12/16 20:59 05/15/16 08:03 0.1 MG Fluticasone Propionate (Flonase Nasal [place]) 2 sprays DAILY NA 05/14/16 09:00 06/13/16 08:59 05/15/16 08:05 2 SPRAYS Gabapentin (Neurontin Cap) 100 mg TID PO 05/13/16 21:00 06/12/16 20:59 05/15/16 08:04 100 MG Guaifenesin (Mucinex Contr Rel Tab) 600 mg DAILY PO 05/14/16 09:00 06/13/16 08:59 05/15/16 08:02 600 MG Hydralazine HCl (Apresoline Tab) 25 mg TID PO 05/13/16 21:00 06/12/16 20:59 05/15/16 08:03 25 MG Levothyroxine Sodium (Synthroid Tab) 50 mcg DAILYBB PO 05/14/16 06:00 06/13/16 05:59 05/15/16 05:58 50 MCG Metoprolol Tartrate (Lopressor Tab) 50 mg BID PO 05/13/16 21:00 06/12/16 20:59 05/15/16 08:04 50 MG Mirtazapine (Remeron Tab) 15 mg HS PO 05/13/16 21:00 06/12/16 20:59 05/14/16 21:55 15 MG Montelukast Sodium (Singulair Tab) 10 mg HS PO 05/14/16 21:00 06/13/16 20:59 05/14/16 21:56 10 MG Ranitidine HCl (zANTac TAB) 150 mg BID PO 05/13/16 21:00 06/12/16 20:59 05/15/16 08:04 150 MG Senna/Docusate Sodium (Senokot S Tab) 2 tab BID PO 05/13/16 21:00 06/12/16 20:59 05/15/16 08:02 2 TAB Sertraline HCl (Zoloft Tab) 100 mg DAILY PO 05/14/16 09:00 06/13/16 08:59 05/15/16 08:03 100 MG Tramadol HCl (Ultram Tab) 50 mg Q6H PRN PO 05/13/16 19:00 2/13/17 18:59 Miscellaneous Information (Order Awaiting Action) 1 ea QS N/A 05/14/16 00:00 06/13/16 00:00 Ferrous Sulfate (Feosol Tab) 325 mg DAILY PO 05/14/16 09:00 06/13/16 08:59 05/15/16 08:04 325 MG Miscellaneous Information (Order Awaiting Action) 1 ea QS N/A 05/14/16 00:00 06/13/16 00:00 Miscellaneous Information (Order Awaiting Action) 1 ea QS N/A 05/14/16 00:00 06/13/16 00:00 Pantoprazole Sodium (Protonix Tab) 40 mg BID PO 05/13/16 21:00 06/12/16 20:59 05/15/16 08:04 40 MG Polyethylene (Miralax Powder Packet) 17 gm DAILY PRN PO 05/13/16 20:15 06/12/16 20:14 Insulin Aspart (novoLOG ASPART) SLIDING SCALE If C... ACHS SC 05/13/16 21:00 06/12/16 20:59 05/15/16 08:08 7 UNITS Glucose (Glucose 40% Gel) 15-30 GRAMS 15 GRAMS... UD PRN PO 05/13/16 19:00 06/12/16 18:59 Glucose (Glucose Chew Tab) 4-8 Tablets 4 Tabl... UD PRN PO 05/13/16 19:00 06/12/16 18:59 Dextrose (Dextrose 50% 50ML Syringe) 25-50ML OF 50% DW IV FOR... UD PRN IV 05/13/16 19:00 06/12/16 18:59 Glucagon (Glucagon Inj) 1 mg UD PRN SQ 05/13/16 19:00 06/12/16 18:59 Mineral Oil (Fleet Oil Enema) 133 ml DAILY PRN [place] 05/14/16 13:30 06/13/16 13:29 Doxycycline Hyclate (Vibramycin Cap) 100 mg BID PO 05/14/16 21:00 05/21/16 07:59 05/15/16 08:04 100 MG Furosemide (Lasix tab) 20 mg BID17 PO 05/14/16 17:00 06/13/16 16:59 05/15/16 08:04 20 MG Lactulose (Chronulac Syrup) 20 gm TID PO 05/14/16 14:00 05/16/16 13:59 05/15/16 08:06 20 GM Albuterol/ Ipratropium (Duoneb) 3 ml Q6H PRN INH 05/15/16 08:38 06/14/16 08:37 Miscellaneous Information (Consult Glycemic Management Pharmacy) 1 ea UD PRN N/A 05/15/16 08:45 06/14/16 08:44
[2016-05-15] MEDS: MIRTAZAPINE TAB 15 MG TAB PO SCH (20:47)
[2016-05-15] MEDS: MONTELUKAST SOD 10 MG TAB PO SCH (20:48)
[2016-05-15] MEDS: ONDANSETRON INJ 2 MG/ML 2 ML VIAL IV PRN (21:37)
[2016-05-16] VITALS (8 sets, daily range): BP systolic 123–172; BP diastolic 47–75; PULSE 59–69; TEMP 36.4–36.8; O2SAT 91–98
[2016-05-16] MEDS: INSULIN ASPART 100 UNITS/ML 3 ML PEN SC SCH ×6 (00:08→21:30)
[2016-05-16] MEDS: LEVOTHYROXINE 50 MCG TAB PO SCH (05:46)
[2016-05-16 06:14] LABS: HEMATOCRIT 40.6 % (37-47); MEAN CELL VOLUME 97.1 fL (80-100); MEAN CORPUSCULAR HEMOGLOBIN 30.4 pg (25-34); MEAN CORPUSCULAR HGB CONC 31.3 g/dl (32-36); MEAN PLATELET VOLUME 9.5 fL (7.4-10.4); PLATELET COUNT 166 K/uL (130-400); RED BLOOD COUNT 4.18 M/uL (4.2-5.4); WHITE BLOOD COUNT 8.53 K/uL (4.8-10.8)
[2016-05-16 06:57] LABS: BLOOD UREA NITROGEN 45 mg/dl (7-18); BUN/CREATININE RATIO 30.2 (10-20); CARBON DIOXIDE 29 mmol/L (21-32); CHLORIDE 99 mmol/L (98-107); GLUCOSE 262 mg/dl (70-99); SODIUM 136 mmol/L (136-145)
[2016-05-16] MEDS: FLUTICASONE PROPIONATE NA SPR 16 GM BTL SCH (07:53)
[2016-05-16] MEDS: METOPROLOL TARTRATE 50 MG TAB PO SCH ×2 (07:55→21:22)
[2016-05-16] MEDS: PANTOprazole SOD 40 MG TAB PO SCH ×2 (07:56→21:22)
[2016-05-16] MEDS: AMIODARONE 200 MG TAB PO SCH (07:56)
[2016-05-16] MEDS: GABAPENTIN 100 MG CAP PO SCH ×3 (07:57→21:21)
[2016-05-16] MEDS: FUROSEMIDE 20 MG TAB PO SCH (07:57)
[2016-05-16] MEDS: SERTRALINE HCL 100 MG TAB PO SCH (07:57)
[2016-05-16] MEDS: RANITIDINE HCL 150 MG TAB PO SCH ×2 (07:57→21:20)
[2016-05-16] MEDS: LACTULOSE SYRUP 20 GM/30 ML UDC PO SCH (07:58)
[2016-05-16] MEDS: CLONIDINE HCL 0.1 MG TAB PO SCH ×2 (07:58→21:21)
[2016-05-16] MEDS: ATORVASTATIN 20 MG TAB PO SCH (07:58)
[2016-05-16] MEDS: FERROUS SULFATE 325 MG TAB PO SCH (07:59)
[2016-05-16] MEDS: GUAIFENESIN 600 MG TABCR PO SCH (07:59)
[2016-05-16] MEDS: DOCUSATE SODIUM/SENNA 50/8.6MG TAB PO SCH ×2 (07:59→21:20)
[2016-05-16] MEDS: DOXYCYCLINE HYCLATE 100 MG CAP PO SCH ×2 (08:00→21:22)
[2016-05-16 08:55] LABS: MAGNESIUM 2.4 mg/dl (1.8-2.4); POTASSIUM 5.1 mmol/L (3.5-5.1)
[2016-05-16] MEDS ORDERED: LOSARTAN POTASSIUM 25 MG TAB PO SCH (09:00)
--- NOTE | 2016-05-16 09:09 | Cardiology Follow-Up ---
Subjective General Date of Service: May 16, 2016. Chief Complaint: SOB Pt evaluation today including: conversation w/ patient, physical exam, chart review, lab review, review of studies, review of inpatient medication list History of Present Illness Patient feeling better today. Abdominal pain improving after BM. No chest pain or complaints of SOB. No dizziness, syncope or near syncope. BP improving. Allergies Coded Allergies: Penicillins (Verified Allergy, Mild, rash, 05/13/16) Morphine (Verified Allergy, Unknown, UNKNOWN, 05/13/16) Codeine (Verified Adverse Reaction, Unknown, MAKES ME HIGH, 05/13/16) Social History Smoking Status: Never Smoker Hx Tobacco Use In Past Year?: No Hx Alcohol Use - Type And Amou: No Hx Substance Use - Type And Am: No Problem List Medical Problems: (1) Abdominal pain Status: Acute (2) Chest pain Status: Acute (3) CHF (congestive heart failure) Status: Acute (4) Chronic obstructive pulmonary disease Status: Acute (5) Constipation Status: Acute (6) Cough Status: Acute (7) Hypoxia Status: Acute (8) Left sided chest pain Status: Acute (9) Pneumonia Status: Acute (10) Shortness of breath Status: Acute (11) Symptomatic bradycardia Status: Acute (12) Traumatic intracranial hemorrhage Status: Acute Review of Systems Respiratory: No cough, No dyspnea at rest, No hemoptysis, No shortness of breath, No wheezing Cardiac: No PND, No chest pain, No edema, No orthopnea, No palpitations Physical Exam Vital Signs Last Vital Signs Documentation Date Time Temp Pulse Resp B/P Pulse Ox O2 Delivery O2 Flow Rate FiO2 05/16/16 07:56 36.4 69 20 172/74 93 Nasal Cannula 2.0 Physical Exam Constitutional: General Apperance: overweight Level of Distress: NAD, chronically ill Psychiatric: Mental Status: active & alert Orientation: to time, to place, to person Memory: recent memory normal Eyes: Pupils: PERRLA Neck: supple Lungs: Auscultation: no wheezing, no rales/crackles, deminished air movement Cardiovascular: Heart Auscultation: RRR, normal S1, normal S2, II/ SAMANTHA Abdomen: Bowel Sounds: normal Inspection & Palpation: soft, no tenderness, guarding & rebound Extremities: no edema Assessment and Plan Assessment and Plan ASSESSMENT: 1. Acute respiratory distress, likely multifactorial with combined acute on chronic diastolic HF exacerbation and COPD exacerbation 2. Mitral valve abnormality noted on prior echo/SEJAL. Blood cultures negative on multiple occasions during prior inpatient stay and repeat as outpatient. Anticoagulation contraindicated. Repeat Echo - Conclusions -- * Sinus rhythm was present during the echocardiogram. * There is a 0.6cm x 0.6cm mobile echodensity attached to ventricular surface of the mitral valve annulus near the left ventricular outflow tract. * Calcified mitral apparatus. * The aortic valve is moderately calcified. * Mild valvular aortic stenosis. * Moderate aortic regurgitation. * The left ventricular wall motion is normal. * Ejection Fraction = 60-65%. * Grade I diastolic dysfunction, (abnormal relaxation pattern). * Compared to the most recent echocardiogram, the echodensity is unchanged. 3. Status post permanent pacemaker for sick sinus syndrome. 4. Paroxysmal atrial fibrillation. Currently Atrial paced. No anticoagulation therapy 5. Mechanical fall November 2015 with a subdural hematoma. 6. Labile hypertension - readings range 110-190/60-90 mmHg 7. Constipation RECOMMENDATIONS: Echo results reviewed - mitral valve abnormality is unchanged. BP improved with resumption of losartan 25 mg daily. Mild rise in creatinine. Repeat tomorrow. Monitor potassium. Continue Metoprolol, clonidine, hydralazine. Oral furosemide resumed, low dose 20 mg BID. On admission she was taking furosemide 40 mg BID. May need to discharge her on prior dose. PT/OT Case to be discussed with Dr. Sprague. Anticipate probable discharge tomorrow. CARDIOLOGY ATTENDING ADDENDUM: The patient was seen and personally examined. Agree with Tracy Greene PA-C's findings and plans as documented above with additions as noted below. S: pt walked with PT. She notes she is easily fatigued. Exam: lungs clear Telemetry, SR , atrial paced Data: Last Resulted 05/16/16 05:33 Last Resulted 05/16/16 13:55 Impression- as above , in addition creatinine trending ups, potassium remain mildly elevated. Plan: hold furosemide, start IVF NS at 75 ml/hr, DC losartan, due for duoneb, repeat bmp in am. DVT prophylaxis: SCDs. Laboratory Results Last 24 Hours Test 05/15/16 11:13 05/15/16 16:20 05/15/16 20:00 05/15/16 23:56 Bedside Glucose 249 mg/dl 222 mg/dl 179 mg/dl 219 mg/dl Test 05/16/16 03:41 05/16/16 05:33 05/16/16 06:28 05/16/16 08:25 Bedside Glucose 237 mg/dl 258 mg/dl White Blood Count 8.53 K/uL Red Blood Count 4.18 M/uL Hemoglobin 12.7 g/dL Hematocrit 40.6 % Mean Corpuscular Volume 97.1 fL Mean Corpuscular Hemoglobin 30.4 pg Mean Corpuscular Hemoglobin Concent 31.3 g/dl RDW Standard Deviation 54.0 fL RDW Coefficient of Variation 15.3 % Platelet Count 166 K/uL Mean Platelet Volume 9.5 fL Sodium Level 136 mmol/L Potassium Level mmol/L 5.1 mmol/L Chloride Level 99 mmol/L Carbon Dioxide Level 29 mmol/L Anion Gap 8.0 mmol/L Blood Urea Nitrogen 45 mg/dl Creatinine 1.50 mg/dl Est Creatinine Clear Calc Drug Dose 31.0 ml/min Estimated GFR () 37.5 Estimated GFR (Non- 32.3 BUN/Creatinine Ratio 30.2 Random Glucose 262 mg/dl Calcium Level 9.0 mg/dl Magnesium Level mg/dl 2.4 mg/dl
[2016-05-16] MEDS: SIMETHICONE 80 MG CHEW PO SCH ×3 (12:23→21:21)
[2016-05-16] MEDS: POLYETHYLENE (MIRALAX) 17 GM PACK PO SCH (12:23)
[2016-05-16] MEDS: INSULIN GLARGINE SOLOSTAR 100 UNITS/ML 3 ML PEN SC SCH ×2 (12:26→21:31)
--- NOTE | 2016-05-16 13:42 | Clinical Documentation Query ---
CLINICAL DOCUMENTATION QUERY Dr. SANDRA, In your clinical opinion is this patient being managed for: ( x ) Acute kidney failure on CKD stage III ( ) Other explanation of clinical findings (Please Explain) ( ) Unable to determine (Please Define) ( ) Need to Discuss ( ) Not Agree The medical record reflects the following clinical findings, treatment, and risk factors. Clinical Indicators:80 yo female presenting with acute diastolic CHF and COPD exacerbation. Initial Cr 1.0 and has trended up to Cr 1.5 over a 3 day period. Pt has been receiving treatment for acute CHF with IV lasix doses. GFR range of 38-52. Treatment: PRP monitoring, unable to administer fluids due to acute CHF treatment, O2 support, tele monitoring, I/O Risk Factors: age, A fib, COPD, diastolic CHF exacerbation with IV lasix management, DM, HTN Acute Kidney Injury is defined as any of the following: * Increase in SCr by (>/=) 0.3 mg/dl within 48 hours; or * Increase in SCr to (>/=)1.5 times baseline, which is known or presumed to have occurred within the prior 7 days; or * Urine volume <0.5 ml/kg/h for 6 hours. Chronic Kidney Disease (CKD), stages 1-5. Documenting the stage of CKD will improve data integrity and will help clarify vague terms such as "renal insufficiency" or "chronic renal failure." The stages of CKD according to the [employer] are as follows: Stage I: GFR >90 Stage II: GFR 60-89 Stage III: GFR 30-59 Stage IV: GFR 15-29 Stage V: GFR <15 Please clarify and document your clinical opinion in the progress notes and discharge summary. Terms such as "probable", "suspected", "likely", "questionable", "possible", or "still to be ruled out" are acceptable. IF IN AGREEMENT, YOU MUST DOCUMENT ABOVE DIAGNOSTIC STATEMENT IN DAILY PROGRESS NOTES AND DISCHARGE SUMMARY. This document is not part of the patient's record. Thank You, Sarai Barahona, RN [phone]
[2016-05-16 14:33] LABS: BUN/CREATININE RATIO 30.6 (10-20); CREATININE 1.6 mg/dl (0.60-1.20); POTASSIUM 5.3 mmol/L (3.5-5.1)
[2016-05-16] MEDS ORDERED: SODIUM CHLORIDE 0.9% 1000ML 1,000 ML IV SCH (14:45)
--- NOTE | 2016-05-16 15:48 | Pharmacy Progress Note ---
Glycemic: Assessment & Plan Date of Service May 16, 2016. Assessment & Plan * The patient is currently receiving 35 units of insulin per day. BSGs mostly > 200 mg/dl during the past 24 hours. * Steroid induced hyperglycemia secondary to Prednisone 20mg po BID. * Based upon yesterday's TDD increased basal insulin is needed. Increase Lantus by 50%. Increased basal is also supported by weight based doing. Add a hold parameter to Lantus as a caution against overcorrecting BSGs. * Tighten Novolog parameters for improved glycemic control post-prandially. * Add a Novolog 02 check to aid in resolution of hyperglycemia overnight. PLAN FOR INPATIENT GLYCEMIC CONTROL: * Basal insulin: Increase - Lantus 10 units every 12 hours; hold for BSG below 120 mg/dl * Correctional Insulin: Novolog Correction per scale ACHS Goal Range: Low 120 mg/dL - High 160 mg/dL Tighten - Correction Factor: 30 mg/dL/unit * Prandial insulin: Tighten - Per carb ratio of 1 unit per 10 grams CHO consumed Pharmacy will continue to monitor patient daily and write orders per [facility] inpatient glycemic control protocol. Thanks. * Please note that the plan above was derived based on current level of insulin resistance and hospital stress. These recommendations are appropriate for inpatient admission only. Plan of care upon discharge will need to be reassessed to avoid potential outpatient hypo/hyperglycemia.
--- NOTE | 2016-05-16 17:09 | Progress Note ---
Internal Med Progress Note Date of Service: May 16, 2016. Provider Documentation: SUBJECTIVE: resting comfortably no chest pain or sob has some cough afebrile slept ok had a large bowel movement yesterday complaining of abdominal gas OBJECTIVE: Vital Signs-as noted below Exam: General-alert and oriented ENT-normal hearing Neck-no neck masses Lungs-cta b/l no wheezing or crackles Heart-s1 and s2 heard regular rate and rhythm no murmurs Abdomen-soft bowel sounds present non tender no distension Extremities-no erythema Neuro-alert and awake moves extremities Lab data as noted below. ASSESSMENT & PLAN: 80 yoF with significant heart history and valve issues admitted for increased work of breathing 2/2 CHF exacerbation. ACUTE HYPOXIC RESPIRATORY FAILURE, LIKELY MULTIFACTORIAL DUE TO ACUTE DIASTOLIC CHF AND/OR COPD EXACERBATION Presented with cough and SOB x 3 days; infuenza outbreak at intermediate however patient has been on prophylactic Tamilfu since 05/05 87% on room air on arrival, improved with oxygen 2L via NC Treated with steroids, lasix and abx echo no change from previous cardiology on board Cardiology started on lower dose Losartan and will f/u labs pt/ot MITRAL VALVE ANOMALY echo-unchanged. CONSTIPATION KU fecal retention was on lactulose had bowel movement yesterday. ATRIAL FIBRILLATION on amiodarone and metoprolol rate controlled Not anticoagulated due to hx of hemorrhagic pericardial effusion and subdural hematoma s/p fall SSS S/P PACER no acute issues HTN on clonidine, hydralazine, and metoprolol started Losartan 25mg PO daily on 05/15 will monitor DM hgb a1c 7.0 03/2016 oral agents on hold. SSI while hospitalized GERD, HIATAL HERNIA on PPI/H2 filipe HYPOTHYROIDISM on levothyroxine DEPRESSION on sertraline DVT PROPHYLAXIS SCDs due to hx of hemorrhagic pericardial effusion and subdural hematoma CODE STATUS DNR DISPO: pt/ot social service fopr d/c planning Vital Signs: Date Time Temp Pulse Resp B/P Pulse Ox O2 Delivery O2 Flow Rate FiO2 05/16/16 15:18 36.8 60 20 123/67 91 Room Air 05/16/16 14:16 92 05/16/16 10:53 36.5 65 20 135/64 93 Room Air 05/16/16 07:56 36.4 69 20 172/74 93 Nasal Cannula 2.0 05/16/16 04:02 Nasal Cannula 2.0 05/16/16 03:40 36.6 59 16 154/60 98 Nasal Cannula 2.0 05/16/16 00:02 Nasal Cannula 2.0 05/15/16 23:54 36.6 60 18 121/89 94 Nasal Cannula 2.0 05/15/16 20:38 36.8 60 18 109/65 95 05/15/16 20:03 Room Air Lab Results: Results Past 24 Hours Test 05/15/16 20:00 05/15/16 23:56 05/16/16 03:41 05/16/16 05:33 Range/Units Bedside Glucose 179 219 237 70-90 mg/dl White Blood Count 8.53 4.8-10.8 K/uL Red Blood Count 4.18 4.2-5.4 M/uL Hemoglobin 12.7 12.0-16.0 g/dL Hematocrit 40.6 37-47 % Mean Corpuscular Volume 97.1 80-100 fL Mean Corpuscular Hemoglobin 30.4 25-34 pg Mean Corpuscular Hemoglobin Concent 31.3 32-36 g/dl RDW Standard Deviation 54.0 36.4-46.3 fL RDW Coefficient of Variation 15.3 11.5-14.5 % Platelet Count 166 130-400 K/uL Mean Platelet Volume 9.5 7.4-10.4 fL Sodium Level 136 136-145 mmol/L Potassium Level 3.5-5.1 mmol/L Chloride Level 99 98-107 mmol/L Carbon Dioxide Level 29 21-32 mmol/L Anion Gap 8.0 3-11 mmol/L Blood Urea Nitrogen 45 7-18 mg/dl Creatinine 1.50 0.60-1.20 mg/dl Est Creatinine Clear Calc Drug Dose 31.0 ml/min Estimated GFR () 37.5 Estimated GFR (Non- 32.3 BUN/Creatinine Ratio 30.2 10-20 Random Glucose 262 70-99 mg/dl Calcium Level 9.0 8.5-10.1 mg/dl Magnesium Level 1.8-2.4 mg/dl Test 05/16/16 06:28 05/16/16 08:25 05/16/16 12:28 05/16/16 13:55 Range/Units Bedside Glucose 258 221 70-90 mg/dl Potassium Level 5.1 5.3 3.5-5.1 mmol/L Magnesium Level 2.4 1.8-2.4 mg/dl Sodium Level 135 136-145 mmol/L Chloride Level 102 98-107 mmol/L Carbon Dioxide Level 25 21-32 mmol/L Anion Gap 8.0 3-11 mmol/L Blood Urea Nitrogen 49 7-18 mg/dl Creatinine 1.60 0.60-1.20 mg/dl Est Creatinine Clear Calc Drug Dose 29.0 ml/min Estimated GFR () 34.7 Estimated GFR (Non- 29.9 BUN/Creatinine Ratio 30.6 10-20 Random Glucose 235 70-99 mg/dl Calcium Level 9.0 8.5-10.1 mg/dl Chemistry Specimen Hemolysis Test 05/16/16 16:19 Range/Units Bedside Glucose 252 70-90 mg/dl Microbiology Results 05/16/16 Gram Stain - Final, Complete 05/16/16 Sputum Culture - Final, Complete
[2016-05-16] MEDS: MONTELUKAST SOD 10 MG TAB PO SCH (21:21)
[2016-05-16] MEDS: MIRTAZAPINE TAB 15 MG TAB PO SCH (21:22)
[2016-05-16] MEDS: TRAMADOL HCL 50 MG TAB PO PRN (22:29)
[2016-05-17] VITALS (8 sets, daily range): BP systolic 108–175; BP diastolic 47–85; PULSE 52–68; TEMP 36.3–36.8; O2SAT 87–98
[2016-05-17] MEDS: INSULIN ASPART 100 UNITS/ML 3 ML PEN SC SCH ×5 (01:46→20:39)
[2016-05-17] MEDS: LEVOTHYROXINE 50 MCG TAB PO SCH (05:28)
[2016-05-17 06:05] LABS: HEMATOCRIT 41.1 % (37-47); MEAN CELL VOLUME 97.9 fL (80-100); MEAN CORPUSCULAR HEMOGLOBIN 30.5 pg (25-34); MEAN CORPUSCULAR HGB CONC 31.1 g/dl (32-36); WHITE BLOOD COUNT 8.04 K/uL (4.8-10.8)
[2016-05-17 06:06] LABS: MEAN PLATELET VOLUME 9.6 fL (7.4-10.4); PLATELET COUNT 178 K/uL (130-400)
[2016-05-17 06:37] LABS: BUN/CREATININE RATIO 38.3 (10-20); CALCIUM 8.8 mg/dl (8.5-10.1); CREATININE 1.5 mg/dl (0.60-1.20); MAGNESIUM 2.4 mg/dl (1.8-2.4); POTASSIUM 5.3 mmol/L (3.5-5.1)
[2016-05-17] MEDS: RANITIDINE HCL 150 MG TAB PO SCH ×2 (07:52→20:42)
[2016-05-17] MEDS: DOXYCYCLINE HYCLATE 100 MG CAP PO SCH ×2 (07:52→20:42)
[2016-05-17] MEDS: FLUTICASONE PROPIONATE NA SPR 16 GM BTL SCH (07:52)
[2016-05-17] MEDS: METOPROLOL TARTRATE 50 MG TAB PO SCH ×2 (07:53→20:41)
[2016-05-17] MEDS: AMIODARONE 200 MG TAB PO SCH (07:54)
[2016-05-17] MEDS: PANTOprazole SOD 40 MG TAB PO SCH ×2 (07:54→20:41)
[2016-05-17] MEDS: CLONIDINE HCL 0.1 MG TAB PO SCH ×2 (07:55→20:42)
[2016-05-17] MEDS: GUAIFENESIN 600 MG TABCR PO SCH (07:55)
[2016-05-17] MEDS: FERROUS SULFATE 325 MG TAB PO SCH (07:55)
[2016-05-17] MEDS: GABAPENTIN 100 MG CAP PO SCH ×3 (07:55→20:41)
[2016-05-17] MEDS: SIMETHICONE 80 MG CHEW PO SCH ×3 (07:56→20:41)
[2016-05-17] MEDS: SERTRALINE HCL 100 MG TAB PO SCH (07:56)
[2016-05-17] MEDS: DOCUSATE SODIUM/SENNA 50/8.6MG TAB PO SCH ×2 (07:56→20:41)
[2016-05-17] MEDS: ATORVASTATIN 20 MG TAB PO SCH (07:57)
[2016-05-17] MEDS: INSULIN GLARGINE SOLOSTAR 100 UNITS/ML 3 ML PEN SC SCH (07:59)
[2016-05-17] MEDS ORDERED: SODIUM POLYST. SULF SUSP 15G/60ML PO ONE (08:00)
[2016-05-17] MEDS: POLYETHYLENE (MIRALAX) 17 GM PACK PO SCH (08:00)
--- NOTE | 2016-05-17 09:08 | Cardiology Follow-Up ---
Subjective General Date of Service: May 17, 2016. Chief Complaint: SOB Pt evaluation today including: conversation w/ patient, physical exam, chart review, lab review, review of studies, review of inpatient medication list History of Present Illness Patient feeling better this AM. Abdominal pain improving. No complaints of SOB or chest pain. Notes chronic cough, improved from admission, and back at her "baseline". She denies orthopnea, PND or LE edema. No palpitations or tachypalpitations. Allergies Coded Allergies: Penicillins (Verified Allergy, Mild, rash, 05/13/16) Morphine (Verified Allergy, Unknown, UNKNOWN, 05/13/16) Codeine (Verified Adverse Reaction, Unknown, MAKES ME HIGH, 05/13/16) Social History Smoking Status: Never Smoker Hx Tobacco Use In Past Year?: No Hx Alcohol Use - Type And Amou: No Hx Substance Use - Type And Am: No Problem List Medical Problems: (1) Abdominal pain Status: Acute (2) Chest pain Status: Acute (3) CHF (congestive heart failure) Status: Acute (4) Chronic obstructive pulmonary disease Status: Acute (5) Constipation Status: Acute (6) Cough Status: Acute (7) Hypoxia Status: Acute (8) Left sided chest pain Status: Acute (9) Pneumonia Status: Acute (10) Shortness of breath Status: Acute (11) Symptomatic bradycardia Status: Acute (12) Traumatic intracranial hemorrhage Status: Acute Review of Systems Respiratory: + cough, + dyspnea on exertion, No dyspnea at rest, No hemoptysis , No shortness of breath, No sputum, No wheezing Cardiac: No PND, No chest pain, No edema, No orthopnea, No palpitations Physical Exam Vital Signs Last Vital Signs Documentation Date Time Temp Pulse Resp B/P Pulse Ox O2 Delivery O2 Flow Rate FiO2 05/17/16 04:02 Nasal Cannula 2.0 05/17/16 03:44 36.4 65 19 153/79 98 Physical Exam Constitutional: General Apperance: overweight Level of Distress: NAD, chronically ill Psychiatric: Mental Status: active & alert Orientation: to time, to place, to person Memory: recent memory normal Eyes: Pupils: PERRLA Neck: supple Lungs: Auscultation: no wheezing, no rales/crackles, deminished air movement Cardiovascular: Heart Auscultation: RRR, normal S1, normal S2, II/ SAMANTHA Abdomen: Bowel Sounds: normal Inspection & Palpation: soft, no tenderness, guarding & rebound Extremities: no edema Assessment and Plan Assessment and Plan ASSESSMENT: 1. Acute respiratory distress, likely multifactorial with combined acute on chronic diastolic HF exacerbation and COPD exacerbation 2. Mitral valve abnormality noted on prior echo/SEJAL. Blood cultures negative on multiple occasions during prior inpatient stay and repeat as outpatient. Anticoagulation contraindicated. Repeat Echo this admission- Conclusions -- * Sinus rhythm was present during the echocardiogram. * There is a 0.6cm x 0.6cm mobile echodensity attached to ventricular surface of the mitral valve annulus near the left ventricular outflow tract. * Calcified mitral apparatus. * The aortic valve is moderately calcified. * Mild valvular aortic stenosis. * Moderate aortic regurgitation. * The left ventricular wall motion is normal. * Ejection Fraction = 60-65%. * Grade I diastolic dysfunction, (abnormal relaxation pattern). * Compared to the most recent echocardiogram, the echodensity is unchanged. 3. Status post permanent pacemaker for sick sinus syndrome. Appropriate pacing on telemetry 4. Paroxysmal atrial fibrillation. Currently Atrial paced. No anticoagulation therapy 5. Mechanical fall November 2015 with a subdural hematoma. Anticoagulation contraindicated 6. Labile hypertension - readings range 110-190/60-90 mmHg 7. Constipation 8. RACHELL with hyperkalemia 9. Nocturnal hypoxia noted last night RECOMMENDATIONS: Losartan stopped due to rising creatinine and hyperkalemia. Kayexelate given this AM. Recheck potassium this afternoon. Furosemide on hold. Monitor BP off losartan. If needed, increase hydralazine. (According to outpatient notes, previously on 50 mg TID, currently on 25 mg TID). Continue Metoprolol, clonidine, hydralazine. Check nocturnal oximetry tonight to possibly qualify for supplemental O2 during sleep. Case discussed with Dr. Sprague. Will follow. CARDIOLOGY ATTENDING ADDENDUM: The patient was seen and personally examined. Agree with Tracy Greene PA-C's findings and plans as documented above. Laboratory Results Last 24 Hours Test 05/16/16 12:28 05/16/16 13:55 05/16/16 16:19 05/16/16 20:34 Bedside Glucose 221 mg/dl 252 mg/dl 225 mg/dl Sodium Level 135 mmol/L Potassium Level 5.3 mmol/L Chloride Level 102 mmol/L Carbon Dioxide Level 25 mmol/L Anion Gap 8.0 mmol/L Blood Urea Nitrogen 49 mg/dl Creatinine 1.60 mg/dl Est Creatinine Clear Calc Drug Dose 29.0 ml/min Estimated GFR () 34.7 Estimated GFR (Non- 29.9 BUN/Creatinine Ratio 30.6 Random Glucose 235 mg/dl Calcium Level 9.0 mg/dl Chemistry Specimen Hemolysis Test 05/17/16 01:41 05/17/16 05:21 05/17/16 06:35 Bedside Glucose 168 mg/dl 234 mg/dl White Blood Count 8.04 K/uL Red Blood Count 4.20 M/uL Hemoglobin 12.8 g/dL Hematocrit 41.1 % Mean Corpuscular Volume 97.9 fL Mean Corpuscular Hemoglobin 30.5 pg Mean Corpuscular Hemoglobin Concent 31.1 g/dl RDW Standard Deviation 54.6 fL RDW Coefficient of Variation 15.2 % Platelet Count 178 K/uL Mean Platelet Volume 9.6 fL Sodium Level 139 mmol/L Potassium Level 5.3 mmol/L Chloride Level 102 mmol/L Carbon Dioxide Level 29 mmol/L Anion Gap 8.0 mmol/L Blood Urea Nitrogen 57 mg/dl Creatinine 1.50 mg/dl Est Creatinine Clear Calc Drug Dose 31.1 ml/min Estimated GFR () 37.5 Estimated GFR (Non- 32.3 BUN/Creatinine Ratio 38.3 Random Glucose 246 mg/dl Calcium Level 8.8 mg/dl Magnesium Level 2.4 mg/dl
--- NOTE | 2016-05-17 11:09 | DIAGNOSTIC IMAGING REPORT ---
KUB CLINICAL HISTORY: Abdominal pain. COMPARISON STUDY: CT of the abdomen and pelvis April 26, 2015 and KUB May 13, 2016. FINDINGS: A large amount of stool is noted within the colon and rectum. The amount of stool has likely slightly increased since prior exam. Gaseous distention of the colon has improved since prior study. There are cholecystectomy clips. There is no evidence for a bowel obstruction. IMPRESSION: 1. Large amount of stool within the colon and rectum. 2. Interval improvement in gaseous distention of the colon. Electronically signed by: John Quesada M.D. 05/17/2016 11:07 AM Dictated Date/Time: 05/17/2016 11:05 AM
--- NOTE | 2016-05-17 11:55 | Pharmacy Progress Note ---
Glycemic Control: Progress Nt Date of Service May 17, 2016. Scope Glycemic Pharmacist consulted by Dr Hinton on 05/15/16 for glycemic control and to write orders per [facility] inpatient glycemic control protocol. Objective Accuchecks BSG (last 24hrs): Test 05/16/16 12:28 05/16/16 13:55 05/16/16 16:19 05/16/16 20:34 Bedside Glucose 221 mg/dl (70-90) 252 mg/dl (70-90) 225 mg/dl (70-90) Random Glucose 235 mg/dl (70-99) Test 05/17/16 01:41 05/17/16 05:21 05/17/16 06:35 05/17/16 11:11 Bedside Glucose 168 mg/dl (70-90) 234 mg/dl (70-90) 322 mg/dl (70-90) Random Glucose 246 mg/dl (70-99) Laboratory Data (last 24hrs) Test 05/16/16 13:55 05/17/16 05:21 Anion Gap 8.0 mmol/L 8.0 mmol/L BUN/Creatinine Ratio 30.6 38.3 Blood Urea Nitrogen 49 mg/dl 57 mg/dl Creatinine 1.60 mg/dl 1.50 mg/dl Potassium Level 5.3 mmol/L 5.3 mmol/L Sodium Level 135 mmol/L 139 mmol/L White Blood Count 8.04 K/uL Recent Pertinent Medications Outpatient Anti-diabetic Regimen: * glipizide ER 2.5mg PO daily * A1c = 7% 03/2016 The patient is currently receiving: * Basal insulin: Lantus 10 units SQ BID - hold if BSG is less than 120mg/dL * Correctional Insulin: NovoLog Correction per scale AC/HS Goal Range: Low 120 mg/dL - High 160 mg/dL Correction Factor: 30 mg/dL/unit * Prandial insulin: Per carb ratio of 1 unit per 10 grams CHO consumed Risk Factors for Insulin Resistance: * Steroids: Prednisone 20mg PO BID * Infection: Doxy PO * Diet: T2DM/ Low Na Assessment & Plan ASSESSMENT: * ADA & AACE recommend a goal blood sugar range 140-180 mg/dl for the majority of critically ill & non-critically ill patients. However, more stringent targets may be selected in individual cases. 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 * Outpatient control appropriate based on A1c * Currently, experiencing hyperglycemia secondary to BID prednisone * Tighten NovoLog parameters * add additional Accu-checks overnight until euglycemic * Taper insulin doses at steroids decrease * Fasting BSG elevated both yesterday and today * one time dose of Lantus and then reassess need for basal insulin 05/16/16 * The patient is currently receiving 35 units of insulin per day. BSGs mostly > 200 mg/dl during the past 24 hours. * Steroid induced hyperglycemia secondary to Prednisone 20mg po BID. * Based upon yesterday's TDD increased basal insulin is needed. * Increase Lantus by 50% - increased basal is also supported by weight based doing. Add a hold parameter to Lantus as a caution against overcorrecting BSGs. * Tighten NovoLog parameters for improved glycemic control post-prandially. * Add a NovoLog 02 check to aid in resolution of hyperglycemia overnight. 05/17/16 * BSGs remain elevated despite increased insulin doses on 05/16 * further increase insulin doses (Lantus increase by ~20%, NovoLog correction and carb tightened - based on weight/stress dosing * Received 49 units of insulin on 05/16 with BSGs all over 200mg/dL * again, increase insulin doses - aiming for ~70/30 split weighing more on NovoLog coverage for steroid induced hyperglycemia * Today, pre-lunch BSG >300mg/dL * give IV insulin 5 units to augment NovoLog PLAN FOR INPATIENT GLYCEMIC CONTROL: * Increase Lantus to 12 units SQ BID * hold if BSG is below 120mg/dL * NovoLog AC and HS * Accu-checks at 02:00 * Tighten correction factor to 25mg/dL/unit * Tighten carb ratio to 1 unit per 8 g of CHO consumed - CF/CR based on patient's weight and a stress of 2 * Goal range 120-160mg/dL * Regular insulin 5 units IV x1 dose today with NovoLog at lunch * A1c - current * added to discharge instructions RECOMMENDATIONS FOR DISCHARGE: * If no steroids at d/c - continue home glipizide. * Please note that the plan above was derived based on current level of insulin resistance and hospital stress. These recommendations are appropriate for inpatient admission only. Plan of care upon discharge will need to be reassessed to avoid potential outpatient hypo/hyperglycemia. Thank you.
[2016-05-17] MEDS ORDERED: INSULIN REGULAR 5 UNITS in SYRINGE 4.95 ML IV SCH (12:00)
[2016-05-17] MEDS ORDERED: SOAP SUDS ENEMA PR ONE (17:00)
--- NOTE | 2016-05-17 17:00 | Progress Note ---
Internal Med Progress Note Date of Service: May 17, 2016. Provider Documentation: SUBJECTIVE: sitting on the chair comfortably afebrile has some cough complains of lot of gas and abdominal discomfort had small bowel movement yesterday OBJECTIVE: Vital Signs-as noted below Exam: General-alert and oriented ENT-normal hearing Neck-no neck masses Lungs-cta b/l no wheezing or crackles Heart-s1 and s2 heard regular rate and rhythm no murmurs Abdomen-soft bowel sounds present non tender no distension Extremities-no erythema Neuro-alert and awake moves extremities Lab data as noted below. ASSESSMENT & PLAN: 80 yoF with significant heart history and valve issues admitted for increased work of breathing 2/2 CHF exacerbation. ACUTE HYPOXIC RESPIRATORY FAILURE, LIKELY MULTIFACTORIAL DUE TO ACUTE DIASTOLIC CHF AND/OR COPD EXACERBATION Presented with cough and SOB x 3 days; influenza outbreak at group home however patient has been on prophylactic Tamilfu since 05/05 87% on room air on arrival, improved with oxygen 2L via NC Treated with steroids, Lasix and abx echo no change from previous cardiology on board Cardiology started on lower dose Losartan which was stopped secondary to arf and hyperkalemia will f/u nocturna pulse ox study pt/ot MITRAL VALVE ANOMALY echo-unchanged. cardiology on board CONSTIPATION KU fecal retention was on lactulose had bowel movement yesterday. stopped lactulose secondary to abdominal gas currently on miralx still constipated on kub today will do enema Hyperkalemia k 5.3 today losartan stopped dose of Kayexalate today will f/u labs ATRIAL FIBRILLATION on amiodarone and metoprolol rate controlled Not anticoagulated due to hx of hemorrhagic pericardial effusion and subdural hematoma s/p fall SSS S/P PACER no acute issues HTN on clonidine, hydralazine, and metoprolol plan to increase hydralazine dose if BP still elevated will monitor DM hgb a1c 7.0 03/2016 oral agents on hold. SSI while hospitalized GERD, HIATAL HERNIA on PPI/H2 filipe HYPOTHYROIDISM on levothyroxine DEPRESSION on sertraline DVT PROPHYLAXIS SCDs due to hx of hemorrhagic pericardial effusion and subdural hematoma CODE STATUS DNR DISPO: pt/ot social service for d/c planning Vital Signs: Date Time Temp Pulse Resp B/P Pulse Ox O2 Delivery O2 Flow Rate FiO2 05/17/16 15:43 36.4 52 18 156/59 92 Room Air 05/17/16 14:30 91 05/17/16 11:38 36.3 60 18 148/60 89 Room Air 05/17/16 09:52 88 Room Air 05/17/16 09:07 36.3 60 20 137/85 88 Room Air 05/17/16 04:02 Nasal Cannula 2.0 05/17/16 03:44 36.4 65 19 153/79 98 Nasal Cannula 2.0 05/17/16 00:05 Nasal Cannula 2.0 05/16/16 23:17 36.4 60 27 147/69 93 Nasal Cannula 2.0 05/16/16 20:01 Room Air 05/16/16 19:21 36.8 62 20 137/47 92 Room Air Lab Results: Results Past 24 Hours Test 05/16/16 20:34 05/17/16 01:41 05/17/16 05:21 05/17/16 06:35 Range/Units Bedside Glucose 225 168 234 70-90 mg/dl White Blood Count 8.04 4.8-10.8 K/uL Red Blood Count 4.20 4.2-5.4 M/uL Hemoglobin 12.8 12.0-16.0 g/dL Hematocrit 41.1 37-47 % Mean Corpuscular Volume 97.9 80-100 fL Mean Corpuscular Hemoglobin 30.5 25-34 pg Mean Corpuscular Hemoglobin Concent 31.1 32-36 g/dl RDW Standard Deviation 54.6 36.4-46.3 fL RDW Coefficient of Variation 15.2 11.5-14.5 % Platelet Count 178 130-400 K/uL Mean Platelet Volume 9.6 7.4-10.4 fL Sodium Level 139 136-145 mmol/L Potassium Level 5.3 3.5-5.1 mmol/L Chloride Level 102 98-107 mmol/L Carbon Dioxide Level 29 21-32 mmol/L Anion Gap 8.0 3-11 mmol/L Blood Urea Nitrogen 57 7-18 mg/dl Creatinine 1.50 0.60-1.20 mg/dl Est Creatinine Clear Calc Drug Dose 31.1 ml/min Estimated GFR () 37.5 Estimated GFR (Non- 32.3 BUN/Creatinine Ratio 38.3 10-20 Random Glucose 246 70-99 mg/dl Calcium Level 8.8 8.5-10.1 mg/dl Magnesium Level 2.4 1.8-2.4 mg/dl Test 05/17/16 11:11 05/17/16 16:38 Range/Units Bedside Glucose 322 70-90 mg/dl
[2016-05-17] MEDS: MIRTAZAPINE TAB 15 MG TAB PO SCH (20:40)
[2016-05-17] MEDS: MONTELUKAST SOD 10 MG TAB PO SCH (20:42)
[2016-05-17] MEDS ORDERED: INSULIN GLARGINE SOLOSTAR 100 UNITS/ML 3 ML PEN SC SCH (21:00)
[2016-05-18] VITALS (7 sets, daily range): BP systolic 123–175; BP diastolic 57–94; PULSE 61–63; TEMP 36.4–36.7; O2SAT 86–99
[2016-05-18] MEDS: INSULIN ASPART 100 UNITS/ML 3 ML PEN SC SCH ×5 (01:52→20:57)
[2016-05-18] MEDS: CLONIDINE HCL 0.1 MG TAB PO SCH ×2 (03:46→20:49)
[2016-05-18] MEDS: LEVOTHYROXINE 50 MCG TAB PO SCH (05:32)
[2016-05-18] MEDS ORDERED: CLONIDINE HCL 0.1 MG TAB PO ONE (05:36)
[2016-05-18 06:21] LABS: HEMATOCRIT 41.4 % (37-47); MEAN CELL VOLUME 97.4 fL (80-100); MEAN CORPUSCULAR HEMOGLOBIN 31.3 pg (25-34); MEAN CORPUSCULAR HGB CONC 32.1 g/dl (32-36); MEAN PLATELET VOLUME 9.3 fL (7.4-10.4); PLATELET COUNT 178 K/uL (130-400); RED BLOOD COUNT 4.25 M/uL (4.2-5.4); WHITE BLOOD COUNT 8.22 K/uL (4.8-10.8)
[2016-05-18 06:54] LABS: BUN/CREATININE RATIO 40.9 (10-20); CALCIUM 8.9 mg/dl (8.5-10.1); CREATININE 1.4 mg/dl (0.60-1.20); MAGNESIUM 2.5 mg/dl (1.8-2.4); POTASSIUM 4.3 mmol/L (3.5-5.1)
--- NOTE | 2016-05-18 07:17 | DIAGNOSTIC IMAGING REPORT ---
SINGLE VIEW CHEST CLINICAL HISTORY: Hypoxia. FINDINGS: An AP, portable, upright chest radiograph is compared to study dated 05/13/2016. The examination is degraded by portable technique and patient rotation. A 2-lead cardiac pacemaker is unchanged in position. The heart is enlarged and there is atherosclerotic calcification of the thoracic aorta. Pulmonary vascular congestion persists. Enlargement of the central pulmonary arteries is similar to previous and consistent with pulmonary artery hypertension. A hiatal hernia is observed. Trace pleural effusions are suspected. There is bibasilar atelectasis. No airspace consolidation is seen typical for pneumonia and no pneumothorax is identified. The skeletal structures are osteopenic. The bony thorax is grossly intact. IMPRESSION: 1. Cardiomegaly and cardiac pacemaker. There is evidence of mild congestive failure. 2. Suspect small pleural effusions. Electronically signed by: Hayes Pena M.D. 05/18/2016 7:15 AM Dictated Date/Time: 05/18/2016 7:14 AM
[2016-05-18] MEDS: FLUTICASONE PROPIONATE NA SPR 16 GM BTL SCH (08:04)
[2016-05-18] MEDS: ATORVASTATIN 20 MG TAB PO SCH (08:04)
[2016-05-18] MEDS: RANITIDINE HCL 150 MG TAB PO SCH ×2 (08:04→20:49)
[2016-05-18] MEDS: DOCUSATE SODIUM/SENNA 50/8.6MG TAB PO SCH ×2 (08:05→20:48)
[2016-05-18] MEDS: DOXYCYCLINE HYCLATE 100 MG CAP PO SCH ×2 (08:05→20:51)
[2016-05-18] MEDS: SERTRALINE HCL 100 MG TAB PO SCH (08:06)
[2016-05-18] MEDS: FERROUS SULFATE 325 MG TAB PO SCH (08:06)
[2016-05-18] MEDS: AMIODARONE 200 MG TAB PO SCH (08:06)
[2016-05-18] MEDS: METOPROLOL TARTRATE 50 MG TAB PO SCH ×2 (08:06→20:50)
[2016-05-18] MEDS: SIMETHICONE 80 MG CHEW PO SCH ×3 (08:07→20:50)
[2016-05-18] MEDS: GUAIFENESIN 600 MG TABCR PO SCH (08:07)
[2016-05-18] MEDS: POLYETHYLENE (MIRALAX) 17 GM PACK PO SCH (08:07)
[2016-05-18] MEDS: PANTOprazole SOD 40 MG TAB PO SCH ×2 (08:08→20:50)
[2016-05-18] MEDS: GABAPENTIN 100 MG CAP PO SCH ×3 (08:09→20:49)
[2016-05-18] MEDS ORDERED: FUROSEMIDE INJ 40 MG in SYRINGE 0 ML IV SCH (09:00)
[2016-05-18] MEDS: INSULIN GLARGINE SOLOSTAR 100 UNITS/ML 3 ML PEN SC SCH (09:00)
[2016-05-18] MEDS: FUROSEMIDE 40 MG TAB PO SCH (09:00)
--- NOTE | 2016-05-18 10:21 | Cardiology Follow-Up ---
Subjective General Date of Service: May 18, 2016. Chief Complaint: SOB Pt evaluation today including: conversation w/ patient, physical exam, chart review, lab review, review of studies, review of inpatient medication list History of Present Illness Patient feeling ok this AM. Notes abdominal bloating and belching. No SOB or CP. No palpitations or dizziness. [facility] uses PRN. Does not use at night. Per nocturnal oximetry last night - qualifies and requires O2 at night. Allergies Coded Allergies: Penicillins (Verified Allergy, Mild, rash, 05/13/16) Morphine (Verified Allergy, Unknown, UNKNOWN, 05/13/16) Codeine (Verified Adverse Reaction, Unknown, MAKES ME HIGH, 05/13/16) Social History Smoking Status: Never Smoker Hx Tobacco Use In Past Year?: No Hx Alcohol Use - Type And Amou: No Hx Substance Use - Type And Am: No Problem List Medical Problems: (1) Abdominal pain Status: Acute (2) Chest pain Status: Acute (3) CHF (congestive heart failure) Status: Acute (4) Chronic obstructive pulmonary disease Status: Acute (5) Constipation Status: Acute (6) Cough Status: Acute (7) Hypoxia Status: Acute (8) Left sided chest pain Status: Acute (9) Pneumonia Status: Acute (10) Shortness of breath Status: Acute (11) Symptomatic bradycardia Status: Acute (12) Traumatic intracranial hemorrhage Status: Acute Review of Systems Respiratory: + cough, + dyspnea on exertion, No dyspnea at rest, No shortness of breath, No sputum, No wheezing Cardiac: No PND, No chest pain, No edema, No orthopnea, No palpitations Physical Exam Vital Signs Last Vital Signs Documentation Date Time Temp Pulse Resp B/P Pulse Ox O2 Delivery O2 Flow Rate FiO2 05/18/16 08:00 Room Air 05/18/16 07:48 36.4 61 18 158/68 93 05/17/16 04:02 2.0 Physical Exam Constitutional: General Apperance: overweight Level of Distress: NAD, chronically ill Psychiatric: Mental Status: active & alert Orientation: to time, to place, to person Memory: recent memory normal Eyes: Pupils: PERRLA Neck: supple Lungs: Auscultation: no wheezing, no rales/crackles, deminished air movement Cardiovascular: Heart Auscultation: RRR, normal S1, normal S2, II/ SAMANTHA Abdomen: Bowel Sounds: normal Inspection & Palpation: soft, no tenderness, guarding & rebound Extremities: no edema Assessment and Plan Assessment and Plan ASSESSMENT: 1. Acute respiratory distress, likely multifactorial with combined acute on chronic diastolic HF exacerbation and COPD exacerbation 2. Mitral valve abnormality noted on prior echo/SEJAL. Blood cultures negative on multiple occasions during prior inpatient stay and repeat as outpatient. Anticoagulation contraindicated. Repeat Echo this admission- Conclusions -- * Sinus rhythm was present during the echocardiogram. * There is a 0.6cm x 0.6cm mobile echodensity attached to ventricular surface of the mitral valve annulus near the left ventricular outflow tract. * Calcified mitral apparatus. * The aortic valve is moderately calcified. * Mild valvular aortic stenosis. * Moderate aortic regurgitation. * The left ventricular wall motion is normal. * Ejection Fraction = 60-65%. * Grade I diastolic dysfunction, (abnormal relaxation pattern). * Compared to the most recent echocardiogram, the echodensity is unchanged. 3. Status post permanent pacemaker for sick sinus syndrome. Appropriate pacing on telemetry 4. Paroxysmal atrial fibrillation. Currently Atrial paced. No anticoagulation therapy 5. Mechanical fall November 2015 with a subdural hematoma. Anticoagulation contraindicated 6. Labile hypertension - readings range 110-190/60-90 mmHg 7. Constipation 8. RACHELL with hyperkalemia (potassium is improved, creatinine still above baseline , 05/18/16) 9. Nocturnal hypoxia noted last night RECOMMENDATIONS: Losartan stopped due to rising creatinine and hyperkalemia. Hydralazine subsequently increased to 50 MG TID for BP control. Potassium improved Resume low dose furosemide 40 mg this AM due to increased pleural effusions, hypoxia. Check 2Step for O2. Case discussed with Dr. Sprague. Will follow. CARDIOLOGY ATTENDING ADDENDUM: The patient was seen and personally examined. Agree with Tracy Greene PA-C's findings and plans as documented above with additions noted below. Subjective: Pt with belching, dyspepsia.- chronic symptoms, likely related to her severe hiatal hernia. exam: lungs clear Imp-as noted above. Plan: as above. SCDs for DVT prophylaxis. Laboratory Results Last 24 Hours Test 05/17/16 11:11 05/17/16 16:38 05/18/16 05:26 Bedside Glucose 322 mg/dl Potassium Level 3.8 mmol/L 4.3 mmol/L White Blood Count 8.22 K/uL Red Blood Count 4.25 M/uL Hemoglobin 13.3 g/dL Hematocrit 41.4 % Mean Corpuscular Volume 97.4 fL Mean Corpuscular Hemoglobin 31.3 pg Mean Corpuscular Hemoglobin Concent 32.1 g/dl RDW Standard Deviation 55.4 fL RDW Coefficient of Variation 15.4 % Platelet Count 178 K/uL Mean Platelet Volume 9.3 fL Sodium Level 143 mmol/L Chloride Level 104 mmol/L Carbon Dioxide Level 33 mmol/L Anion Gap 6.0 mmol/L Blood Urea Nitrogen 57 mg/dl Creatinine 1.40 mg/dl Est Creatinine Clear Calc Drug Dose 33.3 ml/min Estimated GFR () 40.7 Estimated GFR (Non- 35.1 BUN/Creatinine Ratio 40.9 Random Glucose 183 mg/dl Calcium Level 8.9 mg/dl Magnesium Level 2.5 mg/dl
--- NOTE | 2016-05-18 10:43 | Pharmacy Progress Note ---
Glycemic: Assessment & Plan Date of Service May 18, 2016. Assessment & Plan Outpatient Anti-diabetic Regimen: * glipizide ER 2.5mg PO daily * A1c = 7% 03/2016 ASSESSMENT: * ADA & AACE recommend a goal blood sugar range 140-180 mg/dl for the majority of critically ill & non-critically ill patients. However, more stringent targets may be selected in individual cases. 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 * Outpatient control appropriate based on A1c * Currently, experiencing hyperglycemia secondary to BID prednisone * Tighten NovoLog parameters * add additional Accu-checks overnight until euglycemic * Taper insulin doses at steroids decrease * Fasting BSG elevated both yesterday and today * one time dose of Lantus and then reassess need for basal insulin 05/16/16 * The patient is currently receiving 35 units of insulin per day. BSGs mostly > 200 mg/dl during the past 24 hours. * Steroid induced hyperglycemia secondary to Prednisone 20mg po BID. * Based upon yesterday's TDD increased basal insulin is needed. * Increase Lantus by 50% - increased basal is also supported by weight based doing. Add a hold parameter to Lantus as a caution against overcorrecting BSGs. * Tighten NovoLog parameters for improved glycemic control post-prandially. * Add a NovoLog 02 check to aid in resolution of hyperglycemia overnight. 05/17/16 * BSGs remain elevated despite increased insulin doses on 05/16 * further increase insulin doses (Lantus increase by ~20%, NovoLog correction and carb tightened - based on weight/stress dosing * Received 49 units of insulin on 05/16 with BSGs all over 200mg/dL * again, increase insulin doses - aiming for ~70/30 split weighing more on NovoLog coverage for steroid induced hyperglycemia * Today, pre-lunch BSG >300mg/dL * give IV insulin 5 units to augment NovoLog 05/18/16 * Patient's BSGs dropped significantly last evening (94 pre-dinner, 75 at bedtime). * Lantus dose held last evening and Novolog parameters were loosened. * BSGs looked good this morning, so Lantus resumed at a reduced dose. * Will continue to follow and adjust regimen as needed. PLAN FOR INPATIENT GLYCEMIC CONTROL: * Resume Lantus at 10 units SQ daily * hold if BSG is below 120mg/dL * NovoLog AC and HS * Correction factor: 35mg/dL/unit * Carb ratio: 1 unit per 12 g of CHO consumed * Goal range 120-160mg/dL RECOMMENDATIONS FOR DISCHARGE: * If no steroids at d/c - continue home glipizide. * Please note that the plan above was derived based on current level of insulin resistance and hospital stress. These recommendations are appropriate for inpatient admission only. Plan of care upon discharge will need to be reassessed to avoid potential outpatient hypo/hyperglycemia. Thank you.
--- NOTE | 2016-05-18 15:19 | Progress Note ---
Internal Med Progress Note Date of Service: May 18, 2016. Provider Documentation: SUBJECTIVE: says belching is better today afebrile denies sob or cough moved bowels yesterday feeling somewhat better today OBJECTIVE: Vital Signs-as noted below Exam: General-alert and oriented ENT-normal hearing Neck-no neck masses Lungs-cta b/l no wheezing or crackles Heart-s1 and s2 heard regular rate and rhythm no murmurs Abdomen-soft bowel sounds present non tender no distension Extremities-no erythema Neuro-alert and awake moves extremities Lab data as noted below. ASSESSMENT & PLAN: 80 yoF with significant heart history and valve issues admitted for increased work of breathing 2/2 CHF exacerbation. ACUTE HYPOXIC RESPIRATORY FAILURE, LIKELY MULTIFACTORIAL DUE TO ACUTE DIASTOLIC CHF AND/OR COPD EXACERBATION Presented with cough and SOB x 3 days; influenza outbreak at shelter however patient has been on prophylactic [place]fu since 05/05 87% on room air on arrival, improved with oxygen 2L via NC Treated with steroids, Lasix and abx echo no change from previous cardiology on board Cardiology started on lower dose Losartan which was stopped secondary to arf and hyperkalemia requiring oxygen while sleeping on nocturna pulse ox study restarted Lasix 40mg daily. pt/ot possible d/c in am. MITRAL VALVE ANOMALY echo-unchanged. cardiology on board [employer] [facility] fecal retention was on lactulose had bowel movement yesterday. stopped lactulose secondary to abdominal gas currently on miralx was still constipated on kub 05/17/16 had enema resulted in bowel movement will do one more enema today Belching mostly from hiatal hernia better today will monitor Hyperkalemia k 5.3 today losartan stopped dose of Kayexalate today K 4.3 today ATRIAL FIBRILLATION on amiodarone and metoprolol rate controlled Not anticoagulated due to hx of hemorrhagic pericardial effusion and subdural hematoma s/p fall SSS S/P PACER no acute issues HTN on clonidine, hydralazine, and metoprolol hydralazine dose increased will monitor DM hgb a1c 7.0 03/2016 oral agents on hold. SSI while hospitalized GERD, HIATAL HERNIA on PPI/H2 filipe HYPOTHYROIDISM on levothyroxine DEPRESSION on sertraline DVT PROPHYLAXIS SCDs due to hx of hemorrhagic pericardial effusion and subdural hematoma CODE STATUS DNR DISPO: pt/ot social service for d/c planning possible d/c in am Vital Signs: Date Time Temp Pulse Resp B/P Pulse Ox O2 Delivery O2 Flow Rate FiO2 05/18/16 15:13 Room Air 05/18/16 12:06 Room Air 05/18/16 11:29 36.5 63 20 163/64 92 Room Air 05/18/16 08:00 Room Air 05/18/16 07:48 36.4 61 18 158/68 93 Room Air 05/18/16 05:32 174/94 05/18/16 04:02 Room Air 05/18/16 03:23 36.4 62 19 172/64 86 Room Air 175/93 05/18/16 00:02 Room Air 05/17/16 23:14 36.5 68 18 175/67 87 Room Air 05/17/16 20:02 Room Air 05/17/16 20:00 36.8 62 18 108/47 92 Room Air 05/17/16 16:00 Room Air 05/17/16 15:43 36.4 52 18 156/59 92 Room Air Lab Results: Results Past 24 Hours Test 05/17/16 15:50 05/17/16 16:38 05/17/16 20:28 05/18/16 05:26 Range/Units Bedside Glucose 94 75 70-90 mg/dl Potassium Level 3.8 4.3 3.5-5.1 mmol/L White Blood Count 8.22 4.8-10.8 K/uL Red Blood Count 4.25 4.2-5.4 M/uL Hemoglobin 13.3 12.0-16.0 g/dL Hematocrit 41.4 37-47 % Mean Corpuscular Volume 97.4 80-100 fL Mean Corpuscular Hemoglobin 31.3 25-34 pg Mean Corpuscular Hemoglobin Concent 32.1 32-36 g/dl RDW Standard Deviation 55.4 36.4-46.3 fL RDW Coefficient of Variation 15.4 11.5-14.5 % Platelet Count 178 130-400 K/uL Mean Platelet Volume 9.3 7.4-10.4 fL Sodium Level 143 136-145 mmol/L Chloride Level 104 98-107 mmol/L Carbon Dioxide Level 33 21-32 mmol/L Anion Gap 6.0 3-11 mmol/L Blood Urea Nitrogen 57 7-18 mg/dl Creatinine 1.40 0.60-1.20 mg/dl Est Creatinine Clear Calc Drug Dose 33.3 ml/min Estimated GFR () 40.7 Estimated GFR (Non- 35.1 BUN/Creatinine Ratio 40.9 10-20 Random Glucose 183 70-99 mg/dl Calcium Level 8.9 8.5-10.1 mg/dl Magnesium Level 2.5 1.8-2.4 mg/dl Test 05/18/16 06:52 05/18/16 10:53 Range/Units Bedside Glucose 173 260 70-90 mg/dl
[2016-05-18] MEDS: ACETAMINOPHEN 325 MG TAB PO PRN (15:25)
[2016-05-18] MEDS: MONTELUKAST SOD 10 MG TAB PO SCH (20:50)
[2016-05-18] MEDS: MIRTAZAPINE TAB 15 MG TAB PO SCH (20:51)
[2016-05-19] VITALS (7 sets, daily range): BP systolic 132–181; BP diastolic 49–115; PULSE 60–66; TEMP 36.3–36.7; O2SAT 91–98
[2016-05-19] MEDS: INSULIN ASPART 100 UNITS/ML 3 ML PEN SC SCH ×5 (02:06→21:20)
[2016-05-19] MEDS: LEVOTHYROXINE 50 MCG TAB PO SCH (06:20)
[2016-05-19] MEDS: SERTRALINE HCL 100 MG TAB PO SCH (08:23)
[2016-05-19] MEDS: POLYETHYLENE (MIRALAX) 17 GM PACK PO SCH (08:23)
[2016-05-19] MEDS: FUROSEMIDE 40 MG TAB PO SCH (08:23)
[2016-05-19] MEDS: DOCUSATE SODIUM/SENNA 50/8.6MG TAB PO SCH ×2 (08:24→20:58)
[2016-05-19] MEDS: GUAIFENESIN 600 MG TABCR PO SCH (08:24)
[2016-05-19] MEDS: DOXYCYCLINE HYCLATE 100 MG CAP PO SCH ×2 (08:24→20:54)
[2016-05-19] MEDS: ATORVASTATIN 20 MG TAB PO SCH (08:24)
[2016-05-19] MEDS: FERROUS SULFATE 325 MG TAB PO SCH (08:24)
[2016-05-19] MEDS: CLONIDINE HCL 0.1 MG TAB PO SCH ×2 (08:24→20:57)
[2016-05-19] MEDS: PANTOprazole SOD 40 MG TAB PO SCH ×2 (08:25→20:53)
[2016-05-19] MEDS: RANITIDINE HCL 150 MG TAB PO SCH ×2 (08:25→20:58)
[2016-05-19] MEDS: AMIODARONE 200 MG TAB PO SCH (08:26)
[2016-05-19] MEDS: METOPROLOL TARTRATE 50 MG TAB PO SCH ×2 (08:26→20:56)
[2016-05-19] MEDS: SIMETHICONE 80 MG CHEW PO SCH ×3 (08:27→20:54)
[2016-05-19] MEDS: FLUTICASONE PROPIONATE NA SPR 16 GM BTL SCH (08:27)
[2016-05-19] MEDS: GABAPENTIN 100 MG CAP PO SCH ×3 (08:27→21:01)
[2016-05-19] MEDS: INSULIN GLARGINE SOLOSTAR 100 UNITS/ML 3 ML PEN SC SCH (08:28)
--- NOTE | 2016-05-19 09:19 | Cardiology Follow-Up ---
Subjective General Date of Service: May 19, 2016. 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 Primary complaint is dyspepsia, chronic issue due to hiatal hernia. Cough improving and nearly back at baseline. Denies chest pain or worsening SOB. No dizziness, syncope or near syncope. Allergies Coded Allergies: Penicillins (Verified Allergy, Mild, rash, 05/13/16) Morphine (Verified Allergy, Unknown, UNKNOWN, 05/13/16) Codeine (Verified Adverse Reaction, Unknown, MAKES ME HIGH, 05/13/16) Social History Smoking Status: Never Smoker Hx Tobacco Use In Past Year?: No Hx Alcohol Use - Type And Amou: No Hx Substance Use - Type And Am: No Problem List Medical Problems: (1) Abdominal pain Status: Acute (2) Chest pain Status: Acute (3) CHF (congestive heart failure) Status: Acute (4) Chronic obstructive pulmonary disease Status: Acute (5) Constipation Status: Acute (6) Cough Status: Acute (7) Hypoxia Status: Acute (8) Left sided chest pain Status: Acute (9) Pneumonia Status: Acute (10) Shortness of breath Status: Acute (11) Symptomatic bradycardia Status: Acute (12) Traumatic intracranial hemorrhage Status: Acute Review of Systems Respiratory: + cough, No dyspnea at rest, No shortness of breath Cardiac: No PND, No chest pain, No edema, No orthopnea, No palpitations Physical Exam Vital Signs Last Vital Signs Documentation Date Time Temp Pulse Resp B/P Pulse Ox O2 Delivery O2 Flow Rate FiO2 05/19/16 07:22 36.4 66 20 181/64 98 Nasal Cannula 2.0 145/115 Physical Exam Constitutional: General Apperance: overweight Level of Distress: NAD, chronically ill Psychiatric: Mental Status: active & alert Orientation: to time, to place, to person Memory: recent memory normal Eyes: Pupils: PERRLA Neck: supple Lungs: Auscultation: no wheezing, no rales/crackles, deminished air movement Cardiovascular: Heart Auscultation: RRR, normal S1, normal S2, II/ SAMANTHA Abdomen: Bowel Sounds: normal Inspection & Palpation: soft, no tenderness, guarding & rebound Extremities: no edema Assessment and Plan Assessment and Plan ASSESSMENT: 1. Acute respiratory distress, likely multifactorial with combined acute on chronic diastolic HF exacerbation and COPD exacerbation 2. Mitral valve abnormality noted on prior echo/SEJAL. Blood cultures negative on multiple occasions during prior inpatient stay and repeat as outpatient. Anticoagulation contraindicated. Repeat Echo this admission- Conclusions -- * Sinus rhythm was present during the echocardiogram. * There is a 0.6cm x 0.6cm mobile echodensity attached to ventricular surface of the mitral valve annulus near the left ventricular outflow tract. * Calcified mitral apparatus. * The aortic valve is moderately calcified. * Mild valvular aortic stenosis. * Moderate aortic regurgitation. * The left ventricular wall motion is normal. * Ejection Fraction = 60-65%. * Grade I diastolic dysfunction, (abnormal relaxation pattern). * Compared to the most recent echocardiogram, the echodensity is unchanged. 3. Status post permanent pacemaker for sick sinus syndrome. Appropriate pacing on telemetry 4. Paroxysmal atrial fibrillation. Currently Atrial paced. No anticoagulation therapy 5. Mechanical fall November 2015 with a subdural hematoma. Anticoagulation contraindicated 6. Labile hypertension - readings range 110-190/60-90 mmHg 7. Constipation 8. RACHELL with hyperkalemia 9. Nocturnal hypoxia noted last night\ 10. Dyspepsia secondary to large hiatal hernia. Inoperable. RECOMMENDATIONS: Losartan stopped due to rising creatinine and hyperkalemia. Hydralazine subsequently increased to 50 MG TID for BP control. Potassium improved. Recheck this AM. Resume low dose furosemide 40 mg this AM Check 2Step for O2. Case discussed with Dr. Sprague. Anticipate possible discharge today. CARDIOLOGY ATTENDING ADDENDUM: The patient was seen and personally examined. Agree with Tracy Greene PA-C's findings and plans as documented above. Laboratory Results Last 24 Hours Test 05/18/16 10:53 05/18/16 16:08 05/18/16 20:33 05/19/16 02:02 Bedside Glucose 260 mg/dl 281 mg/dl 198 mg/dl 173 mg/dl Test 05/19/16 07:01 05/19/16 08:51 Bedside Glucose 222 mg/dl
[2016-05-19 10:14] LABS: BUN/CREATININE RATIO 39.9 (10-20); CALCIUM 8.9 mg/dl (8.5-10.1); CREATININE 1.5 mg/dl (0.60-1.20); POTASSIUM 4.4 mmol/L (3.5-5.1)
[2016-05-19 10:23] LABS: BETA-HYDROXYBUTYRATE 1.17 mg/dL (0.2-2.81)
[2016-05-19] MEDS ORDERED: CIPROFLOXACIN 250 MG TAB PO SCH (13:00)
[2016-05-19] MEDS ORDERED: INSULIN GLARGINE SOLOSTAR 100 UNITS/ML 3 ML PEN SC ONE (13:15)
--- NOTE | 2016-05-19 13:21 | Pharmacy Progress Note ---
Glycemic Control: Progress Nt Date of Service May 19, 2016. Scope Glycemic Pharmacist consulted by Dr Hinton on 05/15/16 for glycemic control and to write orders per [facility] inpatient glycemic control protocol. Objective Accuchecks BSG (last 24hrs): Test 05/18/16 16:08 05/18/16 20:33 05/19/16 02:02 05/19/16 07:01 Bedside Glucose 281 mg/dl (70-90) 198 mg/dl (70-90) 173 mg/dl (70-90) 222 mg/dl (70-90) Test 05/19/16 08:51 05/19/16 11:10 Random Glucose 303 mg/dl (70-99) Bedside Glucose 292 mg/dl (70-90) Laboratory Data (last 24hrs) Test 05/19/16 08:51 Anion Gap 10.0 mmol/L BUN/Creatinine Ratio 39.9 Blood Urea Nitrogen 60 mg/dl Creatinine 1.50 mg/dl Potassium Level 4.4 mmol/L Sodium Level 139 mmol/L HbA1c: Item Value Date Time Hemoglobin A1c 7.0 % H 04/09/16 0512 Recent Pertinent Medications Outpatient Anti-diabetic Regimen: * glipizide ER 2.5mg PO daily * A1c = 7% 03/2016 The patient is currently receiving: * Basal insulin: Lantus 10 units SQ daily Hold for BSG <120 mg/dL* * * Correctional Insulin: NovoLog Correction per scale AC/HS Goal Range: Low 120 mg/dL - High 160 mg/dL Correction Factor: 35 mg/dL/unit * Prandial insulin: Per carb ratio of 1 unit per 12 grams CHO consumed Risk Factors for Insulin Resistance: * Steroids: Prednisone 20mg PO BID * Infection: Doxy PO * Diet: T2DM/ Low Na Assessment & Plan ASSESSMENT: * ADA & AACE recommend a goal blood sugar range 140-180 mg/dl for the majority of critically ill & non-critically ill patients. However, more stringent targets may be selected in individual cases. 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 * Outpatient control appropriate based on A1c * Currently, experiencing hyperglycemia secondary to BID prednisone * Patient has been difficult to manage. As insulin titrated up she had BSGs < 100 mg/dL, so we pulled back. Now BSGS are continuing to trend high. * Tighten NovoLog parameters * Continue additional Accu-checks overnight until euglycemic * Taper insulin doses at steroids decrease * Fasting BSG elevated both yesterday and today * Give additional 5 units of Lantus today and increase to 15 units daily starting tomorrow PLAN FOR INPATIENT GLYCEMIC CONTROL: * Increase Lantus to 15 units SQ daily * hold if BSG is below 120mg/dL * NovoLog AC and HS * Accu-checks at 02:00 * Tighten correction factor to 30 mg/dL/unit * Tighten carb ratio to 1 unit per 10 g of CHO consumed * Goal range 120-160mg/dL * A1c - current * added to discharge instructions RECOMMENDATIONS FOR DISCHARGE: * If no steroids at d/c - continue home glipizide. * Please note that the plan above was derived based on current level of insulin resistance and hospital stress. These recommendations are appropriate for inpatient admission only. Plan of care upon discharge will need to be reassessed to avoid potential outpatient hypo/hyperglycemia. Thank you.
[2016-05-19] MEDS: ALBUT/IPRATROP 3MG/0.5MG NEB 3 ML VIAL INH PRN (14:08)
--- NOTE | 2016-05-19 14:44 | Progress Note ---
Progress Note GI note: Asked by Dr. Nguyen to discuss possible med treatment for pt's chronic belching symptoms which had been present for years. Pt is a 80 y/o female currently admitted for respiratory distress. We had seen her in the past several times for abd pain, constipation distension and belching which is suspected to be due to her large hiatal and ventral hernias. She has had EGD and Colonoscopy evals in 2015 which showed hiatal hernia filled w food, possible Mckeon's, and int. hemorrhoids, lipoma, colonoscopy can't be advanced past hepatic flexure. We had tried treatment with PPIs, several bowel regimen to help prevent constipation and hopefully reduce bloating, pain and belching symptoms. She always seems to have temporary relief, not permanent of the belching symptoms. There wasn't anything else we could offer her from GI standpoint and she had been advised to discuss w Surgery team to consider hernia repair which may actually be helpful. Pt however is always hesitant in getting re-evaluated. Pt's chart, VS, Labs, Imaging studies from this admission reviewed. KUB note evidence of constipation. Pt seen sitting up in room, doesn't appear to be in acute distress. She is belching, dry heaving. Denies any abd pain at the moment. HR regular, lungs bilaterally diminished, abd soft, non tender. At this time, I agree w continuing med treatment w Protonix 40mg BID, Miralax 17g daily and Senokot 2 tabs daily. Recommend empiric treatment with Cipro 500mg BID x 7 days for possible small intestinal bacterial overgrowth causing the abd distension and belching. Can defer hydrogen breath test as sensitivity of this test is low. Also should obtain repeat CT abd/pelvis if her abd pain, distension is worse to r/o incarcerated hernia. Will sign off. May consider Surgery consult if pt is willing to re-discuss possible hernia repair. (Leona Garnett, DELILAH)
--- NOTE | 2016-05-19 16:31 | Progress Note ---
Internal Med Progress Note Date of Service: May 19, 2016. Provider Documentation: SUBJECTIVE: says belching is again worse does not feel like going home as she is very uncomfortably d/w GI -recommends cipro for one week and to d/w surgery agian surgery options has some sob afebrile OBJECTIVE: Vital Signs-as noted below Exam: General-alert and oriented ENT-normal hearing Neck-no neck masses Lungs-cta b/l no wheezing or crackles Heart-s1 and s2 heard regular rate and rhythm no murmurs Abdomen-soft bowel sounds present non tender no distension Extremities-no erythema Neuro-alert and awake moves extremities Lab data as noted below. ASSESSMENT & PLAN: 80 yoF with significant heart history and valve issues admitted for increased work of breathing 2/2 CHF exacerbation. ACUTE HYPOXIC RESPIRATORY FAILURE, LIKELY MULTIFACTORIAL DUE TO ACUTE DIASTOLIC CHF AND/OR COPD EXACERBATION Presented with cough and SOB x 3 days; influenza outbreak at retirement however patient has been on prophylactic Tamilfu since 05/05 87% on room air on arrival, improved with oxygen 2L via NC Treated with steroids, Lasix and abx echo no change from previous cardiology on board Cardiology started on lower dose Losartan which was stopped secondary to arf and hyperkalemia requiring oxygen while sleeping on nocturna pulse ox study restarted Lasix 40mg daily. pt/ot possible d/csoon/. MITRAL VALVE ANOMALY echo-unchanged. cardiology on board [facility] fecal retention was on lactulose had bowel movement yesterday. stopped lactulose secondary to abdominal gas currently on miralx was still constipated on kub 05/17/16 had enema resulted in bowel movement Belching mostly from hiatal hernia severe has this for some time high risk for surgery Worsening started on cipro for one week consulted surgery to reevaluate for any options will monitor Hyperkalemia k 5.3 today losartan stopped dose of Kayexalate today K 4.4 today ATRIAL FIBRILLATION on amiodarone and metoprolol rate controlled Not anticoagulated due to hx of hemorrhagic pericardial effusion and subdural hematoma s/p fall SSS S/P PACER no acute issues HTN on clonidine, hydralazine, and metoprolol hydralazine dose increased will monitor DM hgb a1c 7.0 03/2016 oral agents on hold. SSI while hospitalized GERD, HIATAL HERNIA on PPI/H2 filipe HYPOTHYROIDISM on levothyroxine DEPRESSION on sertraline DVT PROPHYLAXIS SCDs due to hx of hemorrhagic pericardial effusion and subdural hematoma CODE STATUS DNR DISPO: pt/ot social service for d/c planning possible d/c soon Vital Signs: Date Time Temp Pulse Resp B/P Pulse Ox O2 Delivery O2 Flow Rate FiO2 05/19/16 16:04 36.5 61 18 133/49 91 Room Air 05/19/16 14:09 66 20 95 Room Air 05/19/16 12:10 36.3 60 20 134/62 93 Room Air 05/19/16 12:00 Room Air 05/19/16 08:00 Room Air 05/19/16 07:22 36.4 66 20 181/64 98 Nasal Cannula 2.0 145/115 05/19/16 04:02 Nasal Cannula 2.0 05/19/16 03:40 36.5 60 20 176/85 97 Nasal Cannula 2.0 05/19/16 00:02 Nasal Cannula 2.0 05/18/16 23:37 36.6 61 18 144/92 99 Nasal Cannula 2.0 05/18/16 20:10 36.7 63 16 128/57 92 Room Air 05/18/16 20:05 Room Air Lab Results: Results Past 24 Hours Test 05/18/16 20:33 05/19/16 02:02 05/19/16 07:01 05/19/16 08:51 Range/Units Bedside Glucose 198 173 222 70-90 mg/dl Sodium Level 139 136-145 mmol/L Potassium Level 4.4 3.5-5.1 mmol/L Chloride Level 101 98-107 mmol/L Carbon Dioxide Level 28 21-32 mmol/L Anion Gap 10.0 3-11 mmol/L Blood Urea Nitrogen 60 7-18 mg/dl Creatinine 1.50 0.60-1.20 mg/dl Est Creatinine Clear Calc Drug Dose 31.2 ml/min Estimated GFR () 37.5 Estimated GFR (Non- 32.3 BUN/Creatinine Ratio 39.9 10-20 Random Glucose 303 70-99 mg/dl Calcium Level 8.9 8.5-10.1 mg/dl Beta-Hydroxybutyric Acid 1.17 0.2-2.81 mg/dL Test 05/19/16 11:10 05/19/16 15:49 Range/Units Bedside Glucose 292 273 70-90 mg/dl
[2016-05-19] MEDS: MONTELUKAST SOD 10 MG TAB PO SCH (20:53)
[2016-05-19] MEDS: MIRTAZAPINE TAB 15 MG TAB PO SCH (20:59)
[2016-05-19] MEDS: CIPROFLOXACIN 250 MG TAB PO SCH (21:00)
[2016-05-20] MEDS: INSULIN ASPART 100 UNITS/ML 3 ML PEN SC SCH ×5 (02:26→21:16)
[2016-05-20 03:23] VITALS: BP 145/62; PULSE 60; TEMP 36.3; O2SAT 97
[2016-05-20] MEDS: LEVOTHYROXINE 50 MCG TAB PO SCH (06:33)
[2016-05-20] MEDS: POLYETHYLENE (MIRALAX) 17 GM PACK PO SCH (07:55)
[2016-05-20] MEDS: CIPROFLOXACIN 250 MG TAB PO SCH ×2 (07:58→21:11)
[2016-05-20] MEDS: SIMETHICONE 80 MG CHEW PO SCH ×3 (07:58→21:10)
[2016-05-20] MEDS: GABAPENTIN 100 MG CAP PO SCH ×3 (07:58→21:11)
[2016-05-20] MEDS: SERTRALINE HCL 100 MG TAB PO SCH (07:58)
[2016-05-20] MEDS: DOCUSATE SODIUM/SENNA 50/8.6MG TAB PO SCH ×2 (07:58→21:10)
[2016-05-20] MEDS: AMIODARONE 200 MG TAB PO SCH (07:58)
[2016-05-20] MEDS: PANTOprazole SOD 40 MG TAB PO SCH ×2 (07:58→21:11)
[2016-05-20] MEDS: FERROUS SULFATE 325 MG TAB PO SCH (07:59)
[2016-05-20] MEDS: CLONIDINE HCL 0.1 MG TAB PO SCH ×2 (07:59→21:11)
[2016-05-20] MEDS: ATORVASTATIN 20 MG TAB PO SCH (07:59)
[2016-05-20] MEDS: FLUTICASONE PROPIONATE NA SPR 16 GM BTL SCH (07:59)
[2016-05-20] MEDS: FUROSEMIDE 40 MG TAB PO SCH (07:59)
[2016-05-20] MEDS: DOXYCYCLINE HYCLATE 100 MG CAP PO SCH ×2 (07:59→21:10)
[2016-05-20] MEDS: METOPROLOL TARTRATE 50 MG TAB PO SCH ×2 (08:00→21:11)
[2016-05-20] MEDS: RANITIDINE HCL 150 MG TAB PO SCH ×2 (08:00→21:10)
[2016-05-20] MEDS: GUAIFENESIN 600 MG TABCR PO SCH (08:00)
[2016-05-20] MEDS: INSULIN GLARGINE SOLOSTAR 100 UNITS/ML 3 ML PEN SC SCH (08:07)
[2016-05-20 08:13] VITALS: BP 192/85; PULSE 60; TEMP 36.3; O2SAT 96
[2016-05-20] MEDS: TRAMADOL HCL 50 MG TAB PO PRN (08:50)
--- NOTE | 2016-05-20 10:29 | Progress Note ---
Internal Med Progress Note Date of Service: May 20, 2016. Provider Documentation: SUBJECTIVE: The patient was seen and examined Feels better than yesterday Not yet ready to be discharged Continues to belch OBJECTIVE: Vital Signs-as noted below Exam: General-Minimal distress at rest Eyes-Normal ENT-normal Neck-supple Lungs-Decreased breath sound bilaterally Heart-Regular,no murmur Abdomen-Soft,huge hiatal hernia ,no obstruction Extremities-no edema Neuro-AAOx3 Lab data as noted below. ASSESSMENT & PLAN: Uncontrolled Belching Has a huge Hiatal Hernia High risk for surgery But the condition is Worsening Appreciate GI input On Cipro and PPI Await Surgery input ACUTE HYPOXIC RESPIRATORY FAILURE LIKELY MULTIFACTORIAL DUE TO ACUTE DIASTOLIC CHF AND/OR COPD EXACERBATION Presented with cough and SOB x 3 days; influenza outbreak at senior care however patient has been on prophylactic Tamiflu since 05/05 87% on room air on arrival, improved with oxygen 2L via [place] Has been on Steroid and Bronchodilators Appreciate cardiology input Uses Oxygen at night at home Will need 2 steps before discharge On Lasix pt/ot Likely home in AM MITRAL VALVE ANOMALY echo-unchanged. cardiology on board [facility] fecal retention was on lactulose had bowel movement yesterday. stopped lactulose secondary to abdominal gas currently on miralx was still constipated on kub 05/17/16 had enema resulted in bowel movement Hyperkalemia k 5.3 losartan stopped dose of Kayexalate given Potassium normalized ATRIAL FIBRILLATION on amiodarone and metoprolol rate controlled Not anticoagulated due to hx of hemorrhagic pericardial effusion and subdural hematoma s/p fall SSS S/P PACER no acute issues HTN On clonidine, hydralazine, and metoprolol Hydralazine dose increased DM Hb a1c 7.0 03/2016 oral agents on hold. SSI while hospitalized GERD, HIATAL HERNIA on PPI/H2 filipe HYPOTHYROIDISM on levothyroxine DEPRESSION on sertraline DVT PROPHYLAXIS SCDs due to hx of hemorrhagic pericardial effusion and subdural hematoma CODE STATUS DNR DISPO: pt/ot social service for d/c planning possible d/c soon 2 steps before discharge Vital Signs: Date Time Temp Pulse Resp B/P Pulse Ox O2 Delivery O2 Flow Rate FiO2 05/20/16 08:13 36.3 60 22 192/85 96 Nasal Cannula 2.0 05/20/16 08:00 Room Air 05/20/16 04:00 Nasal Cannula 05/20/16 03:23 36.3 60 18 145/62 97 Nasal Cannula 2.0 05/20/16 00:00 Room Air 05/19/16 23:36 36.5 60 18 148/55 92 Nasal Cannula 2.0 05/19/16 20:50 36.7 62 16 132/49 92 Room Air 05/19/16 20:00 Room Air 05/19/16 16:04 36.5 61 18 133/49 91 Room Air 05/19/16 16:00 Room Air 05/19/16 14:09 66 20 95 Room Air 05/19/16 12:10 36.3 60 20 134/62 93 Room Air 05/19/16 12:00 Room Air Lab Results: Results Past 24 Hours Test 05/19/16 11:10 05/19/16 15:49 05/19/16 20:16 05/20/16 02:10 Range/Units Bedside Glucose 292 273 193 181 70-90 mg/dl Test 05/20/16 06:53 Range/Units Bedside Glucose 220 70-90 mg/dl
--- NOTE | 2016-05-20 12:05 | PROGRESS NOTE ---
DATE: 05/20/2016 The patient seen and examined. Chart, medications, telemetry reviewed. SUBJECTIVE: The patient feels still breathless, especially when moving around in room. Notes no chest pain or discomfort. Notes no dizziness or lightheadedness. PHYSICAL EXAMINATION: VITAL SIGNS: Heart rate 60, blood pressure is 192/85. NECK: Thick. There is no distinct jugular venous distention. LUNGS: Reveal diffusely diminished breath sounds in all lung hall. No rhonchi, rale or wheeze with rest or with cough. CARDIOVASCULAR: Regular. There is grade 2/6 systolic ejection murmur. There is no diastolic murmur. ABDOMEN: Soft, nontender. There is no palpable hepatosplenomegaly. There is no hepatojugular reflux. EXTREMITIES: Free of edema. LABORATORY DATA: Laboratory studies drawn today. IMPRESSION: An 80-year-old female admitted with multifactorial respiratory distress, chronic obstructive pulmonary disease exacerbation, combined acute on chronic diastolic heart failure clinically improving. Currently notes no acute complaints, though blood pressures have been running elevated. PLAN: Will be to add low dose nitrates to regimen. Continue all other medications as prescribed including increased dose of hydralazine and oral dose of furosemide at 40 mg per day.
[2016-05-20 12:31] VITALS: BP 148/75; PULSE 80; TEMP 36.8; O2SAT 92
[2016-05-20] MEDS: ISOSORBIDE DINITRATE 20 MG TAB PO SCH ×2 (13:09→17:24)
[2016-05-20 15:31] VITALS: BP 162/75; PULSE 75; TEMP 36.5; O2SAT 91
[2016-05-20 20:16] VITALS: BP 130/55; PULSE 68; TEMP 36.7; O2SAT 96
[2016-05-20] MEDS: MONTELUKAST SOD 10 MG TAB PO SCH (21:10)
[2016-05-20] MEDS: MIRTAZAPINE TAB 15 MG TAB PO SCH (21:11)
[2016-05-20 23:13] VITALS: BP 143/67; PULSE 61; TEMP 36.5; O2SAT 98
[2016-05-21] VITALS (9 sets, daily range): BP systolic 81–181; BP diastolic 47–75; PULSE 59–84; TEMP 36.3–36.8; O2SAT 92–97
[2016-05-21] MEDS: INSULIN ASPART 100 UNITS/ML 3 ML PEN SC SCH ×5 (02:00→21:00)
[2016-05-21] MEDS: LEVOTHYROXINE 50 MCG TAB PO SCH (06:04)
[2016-05-21] MEDS: ISOSORBIDE DINITRATE 20 MG TAB PO SCH ×3 (06:53→17:29)
[2016-05-21] MEDS: ONDANSETRON INJ 2 MG/ML 2 ML VIAL IV PRN (08:26)
[2016-05-21 08:39] LABS: HEMATOCRIT 39.7 % (37-47); MEAN CELL VOLUME 97.5 fL (80-100); MEAN CORPUSCULAR HEMOGLOBIN 30.7 pg (25-34); MEAN CORPUSCULAR HGB CONC 31.5 g/dl (32-36); MEAN PLATELET VOLUME 9.1 fL (7.4-10.4); PLATELET COUNT 164 K/uL (130-400); RED BLOOD COUNT 4.07 M/uL (4.2-5.4); WHITE BLOOD COUNT 10.53 K/uL (4.8-10.8)
[2016-05-21] MEDS: INSULIN GLARGINE SOLOSTAR 100 UNITS/ML 3 ML PEN SC SCH (08:44)
[2016-05-21] MEDS: FLUTICASONE PROPIONATE NA SPR 16 GM BTL SCH (08:49)
[2016-05-21] MEDS: CLONIDINE HCL 0.1 MG TAB PO SCH ×2 (08:51→21:01)
[2016-05-21] MEDS: DOCUSATE SODIUM/SENNA 50/8.6MG TAB PO SCH ×2 (08:52→21:00)
[2016-05-21] MEDS: METOPROLOL TARTRATE 50 MG TAB PO SCH ×2 (08:53→21:01)
[2016-05-21] MEDS: GABAPENTIN 100 MG CAP PO SCH ×3 (08:53→21:00)
[2016-05-21] MEDS: SERTRALINE HCL 100 MG TAB PO SCH (08:53)
[2016-05-21] MEDS: RANITIDINE HCL 150 MG TAB PO SCH ×2 (08:53→21:01)
[2016-05-21] MEDS: SIMETHICONE 80 MG CHEW PO SCH ×3 (08:54→20:59)
[2016-05-21] MEDS: AMIODARONE 200 MG TAB PO SCH (08:55)
[2016-05-21] MEDS: ATORVASTATIN 20 MG TAB PO SCH (08:55)
[2016-05-21] MEDS: GUAIFENESIN 600 MG TABCR PO SCH (08:55)
[2016-05-21] MEDS: POLYETHYLENE (MIRALAX) 17 GM PACK PO SCH (08:55)
[2016-05-21] MEDS: FUROSEMIDE 40 MG TAB PO SCH (08:55)
[2016-05-21] MEDS: FERROUS SULFATE 325 MG TAB PO SCH (08:55)
[2016-05-21 08:56] LABS: BUN/CREATININE RATIO 44.6 (10-20); CALCIUM 8.6 mg/dl (8.5-10.1); CREATININE 1.4 mg/dl (0.60-1.20); MAGNESIUM 2.3 mg/dl (1.8-2.4)
[2016-05-21] MEDS: CIPROFLOXACIN 250 MG TAB PO SCH ×2 (08:56→21:00)
[2016-05-21] MEDS: PANTOprazole SOD 40 MG TAB PO SCH ×2 (08:56→20:59)
--- NOTE | 2016-05-21 10:09 | PROGRESS NOTE ---
DATE: 05/21/2016 The patient seen and examined. Chart, medications and telemetry reviewed. SUBJECTIVE: The patient's main complaints are postprandial abdominal discomfort. She did manifest mild hypoxia when ambulatory to the restroom off oxygen and has manifested continued diuresis with oral diuretics. Telemetry reveals no arrhythmias. OBJECTIVE: VITAL SIGNS: Heart rate is 63, blood pressure is 160/68. HEENT: Normocephalic, atraumatic. Nares without discharge. Throat was clear. NECK: Thick. There is no distinct jugular venous distention. LUNGS: Reveal diminished breath sounds at the bases, but are clear. CARDIOVASCULAR: Regular with paced rhythm. ABDOMEN: Soft with moderate distention. EXTREMITIES: Without cyanosis or clubbing. There is no peripheral edema. IMPRESSION: A complex 80-year-old female with issues as follows: 1. Acute respiratory distress, multifactorial, combined chronic diastolic heart failure and chronic obstructive pulmonary disease exacerbation, clinically improving. 2. History of past paroxysmal atrial fibrillation with no recurrence during hospitalization. 3. Prior pacemaker insertion with normal function. RECOMMENDATIONS: Continue current medical therapies as prescribed. Follow renal electrolytes. Continue increased dose of hydralazine and isosorbide for blood pressure control. Oral furosemide appears to be at least initially effective for further ongoing diuresis at this time. We will follow the patient.
--- NOTE | 2016-05-21 11:53 | Progress Note ---
Internal Med Progress Note Date of Service: May 21, 2016. Provider Documentation: SUBJECTIVE: The patient was seen and examined Worse today Not yet ready to be discharged Continues to belch OBJECTIVE: Vital Signs-as noted below Exam: General-Minimal distress at rest Generally unwell Eyes-Normal ENT-normal Neck-supple Lungs-Decreased breath sound bilaterally Heart-Regular,no murmur Abdomen-Soft,huge hiatal hernia ,no obstruction Extremities-no edema Neuro-AAOx3 Lab data as noted below. ASSESSMENT & PLAN: Uncontrolled Belching Has a huge Hiatal Hernia and very large Ventral hernia High risk for surgery But the condition is Worsening Appreciate GI input,advised oral Cipro and PPI Appreciate Thoracic Surgery input No surgery now ,will need further evaluation as an OP ACUTE HYPOXIC RESPIRATORY FAILURE LIKELY MULTIFACTORIAL DUE TO ACUTE DIASTOLIC CHF AND/OR COPD EXACERBATION Presented with cough and SOB x 3 days; influenza outbreak at alf however patient has been on prophylactic Tamiflu since 05/05 87% on room air on arrival, improved with oxygen 2L via [place] Has been on Steroid and Bronchodilators Appreciate cardiology input Uses Oxygen at night at home Will need 2 steps before discharge On oral Lasix pt/ot Not yet ready to be discharged MITRAL VALVE ANOMALY echo-unchanged. cardiology on board [facility] fecal retention was on lactulose had bowel movement yesterday. stopped lactulose secondary to abdominal gas currently on miralx was still constipated on kub 05/17/16 had enema resulted in bowel movement Hyperkalemia k 5.3 losartan stopped dose of Kayexalate given Potassium normalized ATRIAL FIBRILLATION on amiodarone and metoprolol rate controlled Not anticoagulated due to hx of hemorrhagic pericardial effusion and subdural hematoma s/p fall SSS S/P PACER no acute issues HTN On clonidine, hydralazine, and metoprolol Hydralazine dose increased DM Hb a1c 7.0 03/2016 oral agents on hold. SSI while hospitalized GERD, HIATAL HERNIA on PPI/H2 filipe HYPOTHYROIDISM on levothyroxine DEPRESSION on sertraline DVT PROPHYLAXIS SCDs due to hx of hemorrhagic pericardial effusion and subdural hematoma CODE STATUS DNR DISPO: pt/ot social service for d/c planning possible d/c soon 2 steps before discharge Vital Signs: Date Time Temp Pulse Resp B/P Pulse Ox O2 Delivery O2 Flow Rate FiO2 05/21/16 08:00 Room Air 05/21/16 07:52 36.6 63 18 160/68 92 Room Air 05/21/16 06:53 84 181/66 05/21/16 04:00 Room Air 05/21/16 03:35 36.6 67 18 158/75 96 Nasal Cannula 2.0 05/21/16 00:00 Room Air 05/20/16 23:13 36.5 61 18 143/67 98 Nasal Cannula 2.0 05/20/16 20:16 36.7 68 14 130/55 96 Room Air 05/20/16 20:00 Room Air 05/20/16 16:44 Room Air 05/20/16 15:31 36.5 75 17 162/75 91 Room Air 05/20/16 12:31 36.8 80 22 148/75 92 Room Air 05/20/16 12:30 Room Air Lab Results: Results Past 24 Hours Test 05/20/16 16:13 05/20/16 20:37 05/21/16 02:07 05/21/16 06:58 Range/Units Bedside Glucose 226 214 133 178 70-90 mg/dl Test 05/21/16 08:30 05/21/16 11:30 Range/Units White Blood Count 10.53 4.8-10.8 K/uL Red Blood Count 4.07 4.2-5.4 M/uL Hemoglobin 12.5 12.0-16.0 g/dL Hematocrit 39.7 37-47 % Mean Corpuscular Volume 97.5 80-100 fL Mean Corpuscular Hemoglobin 30.7 25-34 pg Mean Corpuscular Hemoglobin Concent 31.5 32-36 g/dl RDW Standard Deviation 56.4 36.4-46.3 fL RDW Coefficient of Variation 15.9 11.5-14.5 % Platelet Count 164 130-400 K/uL Mean Platelet Volume 9.1 7.4-10.4 fL Nucleated RBC Absolute Count (auto) 0.03 0-0 K/uL Nucleated Red Blood Cells % 0.2 % Sodium Level 140 136-145 mmol/L Potassium Level 5.0 3.5-5.1 mmol/L Chloride Level 103 98-107 mmol/L Carbon Dioxide Level 27 21-32 mmol/L Anion Gap 10.0 3-11 mmol/L Blood Urea Nitrogen 62 7-18 mg/dl Creatinine 1.40 0.60-1.20 mg/dl Est Creatinine Clear Calc Drug Dose 33.6 ml/min Estimated GFR () 40.7 Estimated GFR (Non- 35.1 BUN/Creatinine Ratio 44.6 10-20 Random Glucose 269 70-99 mg/dl Calcium Level 8.6 8.5-10.1 mg/dl Magnesium Level 2.3 1.8-2.4 mg/dl Bedside Glucose 228 70-90 mg/dl
--- NOTE | 2016-05-21 13:10 | SURGERY PROGRESS NOTE ---
DATE: 05/21/2016 HISTORY OF PRESENT ILLNESS: I saw Ms. Robledo again today. She is demanding to have surgery "now" because she is having pain in her left costal margin area in her abdomen. I have explained to her that her hiatal hernia is not the reason for this. I have also explained that she is a high risk patient as she is going to require repair of her incisional hernia anteriorly as a hiatal hernia reoperation. While I believe we could offer her this, I am concerned that it is not causing all the symptoms we see now. I am going to have a general surgeon evaluate her tomorrow about possible repair. I have discussed this patient with them already. I have explained to the patient that we may not offer her surgery at all. I will follow up with her in the morning.
--- NOTE | 2016-05-21 15:32 | Pharmacy Progress Note ---
Glycemic: Assessment & Plan Date of Service May 21, 2016. Assessment & Plan Item Value Date Time Bedside Glucose 228 mg/dl H 05/21/16 1130 Random Glucose 269 mg/dl H 05/21/16 0830 Bedside Glucose 178 mg/dl H 05/21/16 0658 Bedside Glucose 133 mg/dl H 05/21/16 0207 Bedside Glucose 214 mg/dl H 05/20/16 2037 Bedside Glucose 226 mg/dl H 05/20/16 1613 Bedside Glucose 295 mg/dl H 05/20/16 1130 Bedside Glucose 220 mg/dl H 05/20/16 0653 * Basal insulin: Continue Lantus 15 units every AM * Correctional Insulin: Novolog Correction per scale ACHS & 0200 Goal Range: Low 120 mg/dL - High 160 mg/dL Correction Factor: 25 mg/dL/unit * Prandial insulin: "Tightened" carb ratio of 1 unit per 7 grams CHO consumed Pharmacy will continue to monitor patient daily and write orders per [facility] inpatient glycemic control protocol. Thanks. * Please note that the plan above was derived based on current level of insulin resistance and hospital stress. These recommendations are appropriate for inpatient admission only. Plan of care upon discharge will need to be reassessed to avoid potential outpatient hypo/hyperglycemia.
[2016-05-21] MEDS: MIRTAZAPINE TAB 15 MG TAB PO SCH (20:59)
[2016-05-21] MEDS: MONTELUKAST SOD 10 MG TAB PO SCH (21:00)
[2016-05-22] MEDS: INSULIN ASPART 100 UNITS/ML 3 ML PEN SC SCH ×5 (02:16→20:44)
[2016-05-22 04:12] VITALS: BP 158/64; PULSE 61; TEMP 36.3; O2SAT 97
[2016-05-22] MEDS: LEVOTHYROXINE 50 MCG TAB PO SCH (06:26)
--- NOTE | 2016-05-22 07:12 | SURGICAL CONSULTATION ---
DATE OF CONSULTATION: 05/20/2016 REASON FOR CONSULTATION: Evaluate for possible surgical address of recurrent hiatal hernia. 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 I was asked to evaluate her from a surgical standpoint as medical management of this process has been exhausted. The patient constantly belches and states that she would "do anything to get rid of this." She lives in an extended care facility. She is fairly independent. There has been a question raised recently about whether she had endocarditis with vegetation on her mitral valve; however, the transesophageal echocardiogram suggest that this could be a ruptured cord. She certainly has no signs or symptoms suggestive of active endocarditis. She states that sometimes she does have difficulty after eating, that she has "fullness in my chest." PAST MEDICAL HISTORY: 1. Obesity. 2. History of paraesophageal hernia with repair in the past. 3. Atrial fibrillation. 4. Chronic obstructive pulmonary disease. 5. Chronic renal insufficiency. 6. Depression. 7. Diabetes mellitus. 8. Dyslipidemia. 9. Hypertension. 10. Hypothyroidism. 11. Subdural hematoma in the past. PAST SURGICAL HISTORY: 1. Status post appendectomy. 2. Status post tonsillectomy and adenoidectomy. 3. Status post cholecystectomy. 4. Status post total abdominal hysterectomy. 5. Multiple colonoscopies and upper endoscopies. MEDICATIONS: 1. Cordarone. 2. Lipitor. 3. Ferrous sulfate. 4. Breo Ellipta. 5. Catapres. 6. Flonase. 7. Mucinex. 8. Glipizide. 9. Neurontin. 10. Lasix. 11. Apresoline. 12. Xyzal. 13. Lactulose. 14. Lopressor. 15. Singulair. 16. Mirtazapine. 17. Protonix. 18. Prilosec. 19. Zantac. 20. Sennalax. 21. Zoloft. 22. Spiriva. ALLERGIES: 1. PENICILLIN WITH A MILD RASH. 2. MORPHINE. 3. CODEINE (IT SHOULD BE NOTED THAT THE MORPHINE AND CODEINE ALLERGIES ARE A BIT SOFT SHE STATES IT "MESSES MY MIND UP." SOCIAL HISTORY: The patient is . She is in an extended care facility. She was a cigarette smoker in the past but not now. She has a fairly weak support system, having "some cousins" that are "looking on me." FAMILY MEDICAL HISTORY: Significant for diabetes mellitus. Her mother had breast and bladder cancer. Mother also had coronary artery disease and chronic obstructive pulmonary disease and hypertension. She has no children. REVIEW OF SYSTEMS: The patient was markedly short of breath when she came in. She stated her shortness of breath had gotten worse, this has improved by the time I am seeing her today. She has been in the hospital for 1 week. She denies chest pain per se. Her cough is better. She denies any wound breakdown. She will get swelling of her legs, although she has none now. She is markedly dyspneic on exertion but some of this may be deconditioning. Her cough is nonproductive. She has had no neurologic events. She has occasionally had some diaphoresis in bed. She does not have abdominal pain, but complains of burning in her subxiphoid and substernal area. Neurologically, she denies any focal deficits suggestive of transient ischemic attack. PHYSICAL EXAMINATION: GENERAL: This is a large woman who stands 5 feet 2 inches tall and weighs about 205 pounds. Her BMI is almost 37. HEENT: Her extraocular movements are intact. Pupils are equal, round and reactive. Sclerae are anicteric. She has no nasolabial flattening. Tongue is midline. NECK: Supple. I detect no supraclavicular or cervical lymphadenopathy or neck vein distention. LUNGS: Moving air fairly well. I really do not hear any wheezing. She states her breathing is greatly improved since she was admitted to the hospital. She has apparently wheezed prior to this exam. ABDOMEN: Markedly obese. She has a very large ventral hernia. She is soft with good bowel sounds. EXTREMITIES: She has chronic venous stasis changes of her lower legs with discoloration, but has no edema now and has faintly palpable dorsalis pedis pulses. She has no joint effusions. NEUROLOGIC: She is awake and alert. ASSESSMENT AND PLAN: Recurrent hiatal hernia following a paraesophageal hernia repair many years ago. She also has a Mckeon esophagus. The patient is quite enthusiastic about undergoing an operation for this. Quite frankly, I think the risks are going to be extremely high. I would also like to repeat a barium swallow and a CT scan of her chest before offering her any consideration for surgery. I also think that a manometric study may be indicated. It is not clear to me this patient would tolerate this operation well. She has a large ventral hernia which should probably be repaired and I am uncomfortable going through her abdomen and not repairing this. By the same token, I think that we could offer her a laparoscopic repair of this recurrent hernia. I would allow her to recover and go back to the assisted care facility and then I will see her back in the office. NORMA
[2016-05-22] MEDS: ISOSORBIDE DINITRATE 20 MG TAB PO SCH ×3 (07:31→17:18)
[2016-05-22] MEDS: DOCUSATE SODIUM/SENNA 50/8.6MG TAB PO SCH ×2 (07:32→20:37)
[2016-05-22] MEDS: FERROUS SULFATE 325 MG TAB PO SCH (07:32)
[2016-05-22] MEDS: GUAIFENESIN 600 MG TABCR PO SCH (07:32)
[2016-05-22] MEDS: RANITIDINE HCL 150 MG TAB PO SCH ×2 (07:32→20:37)
[2016-05-22] MEDS: PANTOprazole SOD 40 MG TAB PO SCH ×2 (07:32→20:36)
[2016-05-22] MEDS: CLONIDINE HCL 0.1 MG TAB PO SCH ×2 (07:32→20:34)
[2016-05-22] MEDS: METOPROLOL TARTRATE 50 MG TAB PO SCH ×2 (07:32→20:35)
[2016-05-22] MEDS: ATORVASTATIN 20 MG TAB PO SCH (07:32)
[2016-05-22] MEDS: SERTRALINE HCL 100 MG TAB PO SCH (07:32)
[2016-05-22] MEDS: FLUTICASONE PROPIONATE NA SPR 16 GM BTL SCH (07:33)
[2016-05-22] MEDS: AMIODARONE 200 MG TAB PO SCH (07:33)
[2016-05-22] MEDS: CIPROFLOXACIN 250 MG TAB PO SCH ×2 (07:33→20:34)
[2016-05-22] MEDS: FUROSEMIDE 40 MG TAB PO SCH (07:34)
[2016-05-22] MEDS: INSULIN GLARGINE SOLOSTAR 100 UNITS/ML 3 ML PEN SC SCH (07:39)
[2016-05-22] MEDS: SIMETHICONE 80 MG CHEW PO SCH ×3 (07:40→20:35)
[2016-05-22] MEDS: GABAPENTIN 100 MG CAP PO SCH ×3 (07:44→20:35)
[2016-05-22] MEDS: POLYETHYLENE (MIRALAX) 17 GM PACK PO SCH (07:44)
[2016-05-22 08:21] VITALS: BP 162/68; PULSE 62; TEMP 36.9; O2SAT 95
--- NOTE | 2016-05-22 09:18 | Medical Consult ---
Consultation Date of Consultation: May 22, 2016. Attending Physician: Addy Feliz M.D. Reason for Consultation: hiatal hernia, ventral hernia, gerd, barrette's esophagitis History of Present Illness 80 y/o with a hx of prior open hiatal hernia repair/fundoplication for gerd/ barrette's esophagitis about 30 years ago. for the past 1-2 years pt has been having increasing gerd, belching, SOB etc...has been in/out of the hospital. last ct scans showed moderate hiatal hernia at that time. pt also being seen/ worked up for cardiac issues. Past Medical/Surgical History Medical Problems: (1) Abdominal pain Status: Acute (2) Chest pain Status: Acute (3) CHF (congestive heart failure) Status: Acute (4) Chronic obstructive pulmonary disease Status: Acute (5) Constipation Status: Acute (6) Cough Status: Acute (7) Hypoxia Status: Acute (8) Left sided chest pain Status: Acute (9) Pneumonia Status: Acute (10) Shortness of breath Status: Acute (11) Symptomatic bradycardia Status: Acute (12) Traumatic intracranial hemorrhage Status: Acute Family History Diabetes mellitus FH: cancer MOTHER (Breast and Bladder ) FH: heart disease MOTHER FHx: lung disease MOTHER Hypertension MOTHER Social History Smoking Status: Never Smoker Alcohol Use: none Housing [facility] Allergies Coded Allergies: Penicillins (Verified Allergy, Mild, rash, 05/13/16) Morphine (Verified Allergy, Unknown, UNKNOWN, 05/13/16) Codeine (Verified Adverse Reaction, Unknown, MAKES ME HIGH, 05/13/16) Current Inpatient Medications Current Inpatient Medications Medications (Trade) Dose Ordered Sig/Srinivas Route Start Time Stop Time Status Last Admin Dose Admin Acetaminophen (Tylenol Tab) 650 mg Q4H PRN PO 05/13/16 18:30 06/12/16 18:29 05/18/16 15:25 650 MG Ondansetron HCl (Zofran Inj) 4 mg Q6H PRN IV 05/13/16 18:30 06/12/16 18:29 05/21/16 08:26 4 MG Prednisone (PredniSONE TAB) 20 mg BID PO 05/13/16 21:00 06/12/16 20:59 05/22/16 07:40 20 MG Amiodarone HCl (Cordarone Tab) 200 mg DAILY PO 05/14/16 09:00 06/13/16 08:59 05/22/16 07:33 200 MG Atorvastatin Calcium (Lipitor Tab) 20 mg DAILY PO 05/14/16 09:00 06/13/16 08:59 05/22/16 07:32 20 MG Clonidine HCl (Catapres Tab) 0.1 mg BID PO 05/13/16 21:00 06/12/16 20:59 05/22/16 07:32 0.1 MG Fluticasone Propionate (Flonase Nasal [place]) 2 sprays DAILY NA 05/14/16 09:00 06/13/16 08:59 05/22/16 07:33 2 SPRAYS Gabapentin (Neurontin Cap) 100 mg TID PO 05/13/16 21:00 06/12/16 20:59 05/22/16 07:44 100 MG Guaifenesin (Mucinex Contr Rel Tab) 600 mg DAILY PO 05/14/16 09:00 06/13/16 08:59 05/22/16 07:32 600 MG Levothyroxine Sodium (Synthroid Tab) 50 mcg DAILYBB PO 05/14/16 06:00 06/13/16 05:59 05/22/16 06:26 50 MCG Metoprolol Tartrate (Lopressor Tab) 50 mg BID PO 05/13/16 21:00 06/12/16 20:59 05/22/16 07:32 50 MG Mirtazapine (Remeron Tab) 15 mg HS PO 05/13/16 21:00 06/12/16 20:59 05/21/16 20:59 15 MG Montelukast Sodium (Singulair Tab) 10 mg HS PO 05/14/16 21:00 06/13/16 20:59 05/21/16 21:00 10 MG Ranitidine HCl (zANTac TAB) 150 mg BID PO 05/13/16 21:00 06/12/16 20:59 05/22/16 07:32 150 MG Senna/Docusate Sodium (Senokot S Tab) 2 tab BID PO 05/13/16 21:00 06/12/16 20:59 05/22/16 07:32 2 TAB Sertraline HCl (Zoloft Tab) 100 mg DAILY PO 05/14/16 09:00 06/13/16 08:59 05/22/16 07:32 100 MG Tramadol HCl (Ultram Tab) 50 mg Q6H PRN PO 05/13/16 19:00 06/12/16 18:59 05/20/16 08:50 50 MG Miscellaneous Information (Order Awaiting Action) 1 ea QS N/A 05/14/16 00:00 06/13/16 00:00 Ferrous Sulfate (Feosol Tab) 325 mg DAILY PO 05/14/16 09:00 06/13/16 08:59 05/22/16 07:32 325 MG Miscellaneous Information (Order Awaiting Action) 1 ea QS N/A 05/14/16 00:00 06/13/16 00:00 Miscellaneous Information (Order Awaiting Action) 1 ea QS N/A 05/14/16 00:00 06/13/16 00:00 Pantoprazole Sodium (Protonix Tab) 40 mg BID PO 05/13/16 21:00 06/12/16 20:59 05/22/16 07:32 40 MG Polyethylene (Miralax Powder Packet) 17 gm DAILY PRN PO 05/13/16 20:15 06/12/16 20:14 Insulin Aspart (novoLOG ASPART) SLIDING SCALE If C... ACHS SC 05/13/16 21:00 06/12/16 20:59 05/22/16 07:39 15 UNITS Glucose (Glucose 40% Gel) 15-30 GRAMS 15 GRAMS... UD PRN PO 05/13/16 19:00 06/12/16 18:59 Glucose (Glucose Chew Tab) 4-8 Tablets 4 Tabl... UD PRN PO 05/13/16 19:00 06/12/16 18:59 Dextrose (Dextrose 50% 50ML Syringe) 25-50ML OF 50% DW IV FOR... UD PRN IV 05/13/16 19:00 06/12/16 18:59 Glucagon (Glucagon Inj) 1 mg UD PRN SQ 05/13/16 19:00 06/12/16 18:59 Mineral Oil (Fleet Oil Enema) 133 ml DAILY PRN UT 05/14/16 13:30 06/13/16 13:29 Albuterol/ Ipratropium (Duoneb) 3 ml Q6H PRN INH 05/15/16 08:38 06/14/16 08:37 05/19/16 14:08 3 ML Miscellaneous Information (Consult Glycemic Management Pharmacy) 1 ea UD PRN N/A 05/15/16 08:45 06/14/16 08:44 Simethicone (Mylicon Chew Tab) 80 mg TID PO 05/16/16 09:00 06/15/16 08:59 05/22/16 07:40 80 MG Polyethylene (Miralax Powder Packet) 17 gm DAILY PO 05/16/16 09:00 06/15/16 08:59 05/19/16 08:23 17 GM Insulin Aspart (novoLOG ASPART) SLIDING SCALE If C... 0200 SC 05/17/16 02:00 06/16/16 01:59 05/22/16 02:16 4 UNITS Hydralazine HCl (Apresoline Tab) 50 mg TID PO 05/18/16 14:00 06/17/16 13:59 05/22/16 07:31 50 MG Furosemide (Lasix Tab) 40 mg QAM PO 05/18/16 09:00 06/17/16 08:59 05/22/16 07:34 40 MG Insulin Glargine (Lantus Solostar Pen) 15 unit QAM SC 05/20/16 09:00 06/19/16 08:59 05/22/16 07:39 15 UNIT Ciprofloxacin (Ciprofloxacin Tab) 500 mg Q12 PO 05/19/16 21:00 05/26/16 20:59 05/22/16 07:33 500 MG Isosorbide Dinitrate (Isordil Tab) 20 mg TID@0700,1200,1700 PO 05/20/16 12:00 06/19/16 11:59 05/22/16 07:31 20 MG Review of Systems ENT: + trouble swallowing Respiratory: + cough, + shortness of breath Cardiovascular: + chest pain Abdomen: + pain, + problem reported (tolerates food but "dry heaves alot".... SOB after eating. ) Physical Exam Date Time Temp Pulse Resp B/P Pulse Ox O2 Delivery O2 Flow Rate FiO2 05/22/16 08:21 36.9 62 18 162/68 95 05/22/16 04:12 36.3 61 22 158/64 97 Nasal Cannula 2.0 05/22/16 04:00 Nasal Cannula 2.0 05/22/16 00:00 Room Air 05/21/16 23:44 59 97 2.0 05/21/16 23:24 36.3 60 18 130/55 93 Nasal Cannula 2.0 05/21/16 20:00 Room Air 05/21/16 19:08 36.8 66 18 115/47 95 05/21/16 16:01 36.8 76 18 121/51 95 05/21/16 16:00 Room Air 05/21/16 13:30 66 114/54 05/21/16 12:00 Room Air 05/21/16 11:58 36.6 67 22 81/66 92 Room Air General Appearance: + mild distress (upset/wants something done immediately. frustrated primarily), + obese Neck: supple, no adenopathy Respiratory/Chest: + decreased breath sounds (bases) Abdomen/GI: soft, + hernia (large midlline hernia. too large to reduce. nontender. 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 recurrent hiatal hernia/gerd/sob/barrette's esophagitis I do think her HH is contributing to her symptoms significantly. I spoke with Dr. Rosas and I would be happy to help him with the surgery...? if transthoracic approch might be easier with her prior surgery and obesity. certainly high risk pt but she is very symptomatic. "wants to " if she doesn't get surgery soon discussed risks of surgery and post op complication profile. 2. large ventral hernia I do not believe this is contributing as much to her symptoms we would certainly repair at same time as her HH surgery may or may not use mesh...intraop decision we also discussed the risks of this and how this could increase her risks/ post op issues Dr. Rosas currently wants to do more w/u as outpt such as repeat ct scan, manometry etc...will follow his lead.
[2016-05-22 11:53] VITALS: BP_SYST 114; BP_SYST 122; BP_DIAS 50; BP_DIAS 56; PULSE 60; TEMP 36.9; O2SAT 95
--- NOTE | 2016-05-22 13:34 | Progress Note ---
Internal Med Progress Note Date of Service: May 22, 2016. Provider Documentation: SUBJECTIVE: The patient was seen and examined Not yet ready to be discharged Continues to belch Feels SOB but saturation is maintained Wants to have Surgery during this admission OBJECTIVE: Vital Signs-as noted below Exam: General-Minimal distress at rest Generally unwell and very anxious Eyes-Normal ENT-normal Neck-supple Lungs-Decreased breath sound bilaterally Heart-Regular,no murmur Abdomen-Soft,huge hiatal hernia ,no obstruction Extremities-no edema Neuro-AAOx3 Lab data as noted below. ASSESSMENT & PLAN: Uncontrolled Belching Has a huge Hiatal Hernia and very large Ventral hernia High risk for surgery But the condition is not getting any better Appreciate GI input,advised PO Cipro and PPI Appreciate Thoracic Surgery input Appreciate Surgery input No surgery now ,will need further evaluation as an OP ACUTE HYPOXIC RESPIRATORY FAILURE LIKELY MULTIFACTORIAL DUE TO ACUTE DIASTOLIC CHF AND/OR COPD EXACERBATION Presented with cough and SOB x 3 days; influenza outbreak at detention however patient has been on prophylactic Tamiflu since 05/05 87% on room air on arrival, improved with oxygen 2L via NC Has been on Steroid and Bronchodilators Appreciate cardiology input Uses Oxygen at night at home Will need 2 steps before discharge On oral Lasix Continue pt/ot Likely discharge tomorrow MITRAL VALVE ANOMALY echo-unchanged. cardiology on board CONSTIPATION KU fecal retention was on lactulose had bowel movement yesterday. stopped lactulose secondary to abdominal gas currently on miralx was still constipated on kub 05/17/16 had enema resulted in bowel movement Hyperkalemia k 5.3 losartan stopped dose of Kayexalate given Potassium normalized ATRIAL FIBRILLATION on amiodarone and metoprolol rate controlled Not anticoagulated due to hx of hemorrhagic pericardial effusion and subdural hematoma s/p fall SSS S/P PACER no acute issues HTN On clonidine, hydralazine, and metoprolol Hydralazine dose increased DM Hb a1c 7.0 03/2016 oral agents on hold. 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/H2 filipe HYPOTHYROIDISM on levothyroxine DEPRESSION on sertraline DVT PROPHYLAXIS SCDs due to hx of hemorrhagic pericardial effusion and subdural hematoma CODE STATUS DNR DISPO: pt/ot social service for d/c planning possible d/c soon 2 steps before discharge Vital Signs: Date Time Temp Pulse Resp B/P Pulse Ox O2 Delivery O2 Flow Rate FiO2 1/23/17 12:13 Room Air 05/22/16 11:53 36.9 60 18 114/50 95 05/22/16 08:21 36.9 62 18 162/68 95 05/22/16 08:00 Room Air 05/22/16 04:12 36.3 61 22 158/64 97 Nasal Cannula 2.0 05/22/16 04:00 Nasal Cannula 2.0 05/22/16 00:00 Room Air 05/21/16 23:44 59 97 2.0 05/21/16 23:24 36.3 60 18 130/55 93 Nasal Cannula 2.0 05/21/16 20:00 Room Air 05/21/16 19:08 36.8 66 18 115/47 95 05/21/16 16:01 36.8 76 18 121/51 95 05/21/16 16:00 Room Air Lab Results: Results Past 24 Hours Test 05/21/16 16:13 05/21/16 20:07 05/22/16 02:06 05/22/16 07:17 Range/Units Bedside Glucose 184 156 249 215 70-90 mg/dl Test 05/22/16 10:54 Range/Units Bedside Glucose 291 70-90 mg/dl
[2016-05-22] MEDS ORDERED: BISACODYL 10 MG SUPP PR STA (14:32)
--- NOTE | 2016-05-22 15:12 | PROGRESS NOTE ---
DATE: 05/22/2016 CARDIOLOGY PROGRESS NOTE SUBJECTIVE: The patient is seen and examined at the bedside. She complains of shortness of breath and abdominal bloating. She states she has not moved her bowels in 5-6 days. She has refused MiraLax as well as an enema over the past 2 days. Denies chest pain. She was out of bed to a chair for several hours today. Denies lightheadedness, dizziness, syncope or near syncope. Telemetry demonstrates atrial paced rhythm. No dysrhythmias. No new complaints at this time. REVIEW OF SYSTEMS: The pertinent positives noted above and 4-system reviewed including cardiovascular, pulmonary, gastroenterologic and endocrinologic systems are otherwise negative. MEDICATIONS: Reviewed via EMR. Please see list for details. LABORATORY DATA: White blood cell count 10.53, hemoglobin 12.5, platelet count is 164, this is dated 05/21/2016. BMP dated 05/21/2016 demonstrates sodium of 140, potassium 5.0, chloride 103, CO2 of 27, BUN 62, creatinine is 1.40. INR is 1.0. PHYSICAL EXAMINATION: VITAL SIGNS: Temperature is 36.9 degrees centigrade, pulse 60 beats per minute and regular, respiratory rate is 18 breaths per minute, blood pressure 114/50, SaO2 95% on room air. GENERAL: NAD, awake, alert and oriented x3. HEENT: Her mucous membranes are moist. There is no scleral icterus. Conjunctivae pink. NECK: Supple without JVD or HJR. No carotid bruit. HEART: Regular with a normal S1 and S2. There is no murmur, rub, or gallop. LUNGS: Demonstrate mild end expiratory wheeze bilaterally. No rhonchi or rales. ABDOMEN: Distended and nontender. No rebound or guarding. Normal bowel sounds. EXTREMITIES: Warm and dry with trace bilateral pedal edema, bilateral pretibial stasis changes noted. NEUROLOGIC: Demonstrates no focal motor deficit. FINAL IMPRESSION: 1. The patient admitted with [id number] diastolic heart failure in addition to exacerbation of chronic obstructive pulmonary disease - patient appears compensated and euvolemic at this time. 2. 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 No evidence of infectious endocarditis, anticoagulation contraindicated. 3. Mild aortic stenosis. 4. Moderate aortic regurgitation. 5. Sick sinus syndrome, status post pacemaker placement - telemetry demonstrating atrial paced rhythm. 6. Paroxysmal atrial fibrillation - no recurrence. 7. History of mechanical fall with subdural hematoma. 8. Constipation x 5-6 days. 9. Acute kidney injury superimposed on chronic kidney disease. 10. Dyspepsia, dyspnea secondary to large ventral hiatal hernia - thoracic surgery input appreciated. PLAN AND RECOMMENDATIONS: ARB will remain on hold today. Repeat basic metabolic panel in the a.m. Other antihypertensive medications including hydralazine, isosorbide dinitrate, furosemide, clonidine, and metoprolol will be continued. Amiodarone will be continued for rhythm control. The patient's constipation discussed with nursing staff. They will request a suppository from the hospitalist service. Consider restarting ARB pending review of a.m. labs. Blood pressure remains labile.
[2016-05-22 15:58] VITALS: BP 133/72; PULSE 61; TEMP 36.6; O2SAT 90
[2016-05-22 18:35] VITALS: BP 112/71; PULSE 95; O2SAT 97
--- NOTE | 2016-05-22 19:17 | SURGERY PROGRESS NOTE ---
DATE: 05/22/2016 I had a long talk with Mrs. Robledo this evening in the hospital. I have explained our concerns. I have discussed this case with Dr. Feliz as well as Dr. Moy. She is absolutely miserable. She has difficulty talking because she is belching. She is complaining of epigastric pain and states that she "cannot live like this any further." She is adamant that something be done. I explained to Mrs. Robledo that she could very well as a result of any problems that arose with this surgery she states that she is "ready to go now." She states that she would rather than continue living as she is living. As that is the case I am going to go ahead and order a repeat CT scan without contrast as her last CT scan was more than a year ago. Will order this for the morning and then will we reconvene and discuss our options. It is possible we could offer her a transthoracic Belsey-Jose 4 operation.
[2016-05-22 20:06] VITALS: BP 113/45; PULSE 62; TEMP 36.8; O2SAT 91
[2016-05-22] MEDS: TRAMADOL HCL 50 MG TAB PO PRN (20:33)
[2016-05-22] MEDS: MIRTAZAPINE TAB 15 MG TAB PO SCH (20:36)
[2016-05-22] MEDS: MONTELUKAST SOD 10 MG TAB PO SCH (20:37)
[2016-05-23] VITALS (9 sets, daily range): BP systolic 138–156; BP diastolic 59–79; PULSE 60–68; TEMP 36.3–36.8; O2SAT 92–96
[2016-05-23] MEDS: INSULIN ASPART 100 UNITS/ML 3 ML PEN SC SCH ×6 (00:05→22:17)
[2016-05-23] MEDS: ISOSORBIDE DINITRATE 20 MG TAB PO SCH ×3 (06:27→16:53)
[2016-05-23] MEDS: LEVOTHYROXINE 50 MCG TAB PO SCH (06:27)
[2016-05-23] MEDS: ATORVASTATIN 20 MG TAB PO SCH (08:04)
[2016-05-23] MEDS: GUAIFENESIN 600 MG TABCR PO SCH (08:04)
[2016-05-23] MEDS: CLONIDINE HCL 0.1 MG TAB PO SCH ×2 (08:04→22:13)
[2016-05-23] MEDS: FUROSEMIDE 40 MG TAB PO SCH (08:05)
[2016-05-23] MEDS: AMIODARONE 200 MG TAB PO SCH (08:05)
[2016-05-23] MEDS: SERTRALINE HCL 100 MG TAB PO SCH (08:05)
[2016-05-23] MEDS: DOCUSATE SODIUM/SENNA 50/8.6MG TAB PO SCH ×2 (08:05→22:19)
[2016-05-23] MEDS: FERROUS SULFATE 325 MG TAB PO SCH (08:05)
[2016-05-23] MEDS: METOPROLOL TARTRATE 50 MG TAB PO SCH ×2 (08:06→22:14)
[2016-05-23] MEDS: SIMETHICONE 80 MG CHEW PO SCH ×3 (08:06→22:11)
[2016-05-23] MEDS: CIPROFLOXACIN 250 MG TAB PO SCH ×2 (08:06→22:11)
[2016-05-23] MEDS: RANITIDINE HCL 150 MG TAB PO SCH ×2 (08:06→22:19)
[2016-05-23] MEDS: PANTOprazole SOD 40 MG TAB PO SCH ×2 (08:07→22:11)
[2016-05-23] MEDS: GABAPENTIN 100 MG CAP PO SCH ×3 (08:07→22:14)
[2016-05-23] MEDS: FLUTICASONE PROPIONATE NA SPR 16 GM BTL SCH (08:08)
[2016-05-23] MEDS: INSULIN GLARGINE SOLOSTAR 100 UNITS/ML 3 ML PEN SC SCH ×2 (09:00→22:18)
[2016-05-23] MEDS: POLYETHYLENE (MIRALAX) 17 GM PACK PO SCH (09:00)
[2016-05-23 10:07] LABS: HEMATOCRIT 40.7 % (37-47); MEAN CELL VOLUME 99.3 fL (80-100); MEAN CORPUSCULAR HEMOGLOBIN 30.5 pg (25-34); MEAN CORPUSCULAR HGB CONC 30.7 g/dl (32-36); MEAN PLATELET VOLUME 9.6 fL (7.4-10.4); PLATELET COUNT 144 K/uL (130-400); WHITE BLOOD COUNT 9.95 K/uL (4.8-10.8)
[2016-05-23 10:31] LABS: BUN/CREATININE RATIO 42.6 (10-20); CALCIUM 8.5 mg/dl (8.5-10.1); CREATININE 1.7 mg/dl (0.60-1.20); MAGNESIUM 2.6 mg/dl (1.8-2.4); POTASSIUM 4.6 mmol/L (3.5-5.1)
--- NOTE | 2016-05-23 10:42 | Pharmacy Progress Note ---
Glycemic Control: Progress Nt Date of Service May 23, 2016. Scope Glycemic Pharmacist consulted by Dr Hinton on 05/15/16 for glycemic control and to write orders per [facility] inpatient glycemic control protocol. Objective Accuchecks BSG (last 24hrs): Test 05/22/16 10:54 05/22/16 16:22 05/22/16 20:38 05/22/16 20:39 Bedside Glucose 291 mg/dl (70-90) 158 mg/dl (70-90) 375 mg/dl (70-90) 351 mg/dl (70-90) Test 05/22/16 23:58 05/23/16 03:45 05/23/16 06:34 05/23/16 09:37 Bedside Glucose 286 mg/dl (70-90) 207 mg/dl (70-90) 187 mg/dl (70-90) Random Glucose 272 mg/dl (70-99) Laboratory Data (last 24hrs) Test 05/23/16 09:37 Anion Gap 8.0 mmol/L BUN/Creatinine Ratio 42.6 Blood Urea Nitrogen 72 mg/dl Creatinine 1.70 mg/dl Potassium Level 4.6 mmol/L Sodium Level 141 mmol/L White Blood Count 9.95 K/uL Recent Pertinent Medications Outpatient Anti-diabetic Regimen: * Glipizide ER 2.5 mg po daily * A1c = 7.0 % 03/2016 The patient is currently receiving: * Basal insulin: Lantus 15 units SC qAM * Correctional Insulin: Novolog Correction per scale ACHS Goal Range: Low 120 mg/dL - High 150 mg/dL Correction Factor: 25 mg/dL/unit * Prandial insulin: Per carb ratio of 1 unit per 7 grams CHO consumed * Oral Agents: On hold Risk Factors for Insulin Resistance: * Steroids: Prednisone 20 mg po BID * Infection: on ciprofloxacin po * Diet: T2DM / low Na Assessment & Plan ASSESSMENT: * ADA & AACE recommend a goal blood sugar range 140-180 mg/dl for the majority of critically ill & non-critically ill patients. However, more stringent targets may be selected in individual cases. * 80 yo F with good outpatient control based on HbA1c, managed on oral medication alone. * Patient is requiring a significant amount of insulin 2nd steroid-induced hyperglycemia. She will require a significant reduction once steroids tapered / stopped * Was hesitant to increase Lantus 2nd above, but patient has been requiring significant correctional insulin overnight and had a high BSG to 375 mg/dL yesterday HS. Will add PM Lantus, but hold if prednisone not administered * Correctional insulin overnight insufficient to decrease BSG's appropriately - will tighten correction today but loosen overnight 2nd additional Lantus ordered * Will tighten carb ratio further as steroid-induced hyperglycemia responds best to additional prandial coverage PLAN FOR INPATIENT GLYCEMIC CONTROL: * Continue to hold outpatient oral diabetes medications * Continue Basal insulin with LANTUS 15 units SQ qAM * Hold for BSG < 120 mg/dL * Add Basal insulin with LANTUS 10 units SQ qPM * Hold if prednisone not administered OR if BSG < 110 mg/dL * 1/2 dose for BSG 110-140 mg/dL * Correctional Insulin with NOVOLOG per scale ACHS or Q6hrs while NPO * Goal Range: Low 120 mg/dL - High 150 mg/dL * Tighten Correction Factor: 20 mg/dL/unit breakfast to dinner, then loosen back to 25 mg/dL/unit starting at HS * Tighten Nutritional / Prandial insulin per carb ratio of 1 unit per 6 grams CHO consumed * Please note that the plan above was derived based on current level of insulin resistance and hospital stress. These recommendations are appropriate for inpatient admission only. Plan of care upon discharge will need to be reassessed to avoid potential outpatient hypo/hyperglycemia. Thank you.
--- NOTE | 2016-05-23 11:41 | Cardiology Follow-Up ---
Subjective General Date of Service: May 23, 2016. Chief Complaint: SOB Pt evaluation today including: conversation w/ patient, physical exam, chart review, lab review, review of studies, conversation w/ reporting consultant, review of inpatient medication list History of Present Illness The patient is a 80 year old female seen in follow up. Feeling better today after bowel movement. Denies CP. SOB unchanged. No edema, orthopnea, or PND. Atrial paced rhythm on telemetry. Allergies Coded Allergies: Penicillins (Verified Allergy, Mild, rash, 05/13/16) Morphine (Verified Allergy, Unknown, UNKNOWN, 05/13/16) Codeine (Verified Adverse Reaction, Unknown, MAKES ME HIGH, 05/13/16) Social History Smoking Status: Never Smoker Hx Tobacco Use In Past Year?: No Hx Alcohol Use - Type And Amou: No Hx Substance Use - Type And Am: No Problem List Medical Problems: (1) Abdominal pain Status: Acute (2) Chest pain Status: Acute (3) CHF (congestive heart failure) Status: Acute (4) Chronic obstructive pulmonary disease Status: Acute (5) Constipation Status: Acute (6) Cough Status: Acute (7) Hypoxia Status: Acute (8) Left sided chest pain Status: Acute (9) Pneumonia Status: Acute (10) Shortness of breath Status: Acute (11) Symptomatic bradycardia Status: Acute (12) Traumatic intracranial hemorrhage Status: Acute Review of Systems Respiratory: + dyspnea on exertion, + shortness of breath, + wheezing, No cough , No dyspnea at rest, No hemoptysis, No sputum Cardiac: No PND, No chest pain, No claudication, No edema, No orthopnea, No palpitations Physical Exam Vital Signs Last Vital Signs Documentation Date Time Temp Pulse Resp B/P Pulse Ox O2 Delivery O2 Flow Rate FiO2 05/23/16 08:12 36.3 62 20 153/59 95 Nasal Cannula 2.0 Physical Exam Constitutional: General Apperance: overweight Level of Distress: NAD, chronically ill Psychiatric: Mental Status: active & alert Orientation: to time, to place, to person Memory: recent memory normal Eyes: Pupils: PERRLA Neck: supple Lungs: Auscultation: no rales/crackles, deminished air movement, expiratory wheezing Cardiovascular: Heart Auscultation: RRR, normal S1, normal S2, II/ SAMANTHA Abdomen: Bowel Sounds: normal Inspection & Palpation: soft, no tenderness, guarding & rebound Extremities: no edema Neurologic: Gait & Station: pertinent finding (No focal motor deficit) Cranial Nerves: grossly intact Assessment and Plan Assessment and Plan FINAL IMPRESSION: 1. Complex 80 y/o female considered moderate perioperative cardiovascular risk. 2. Chronic compensated diastolic heart failure. 3. 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 No evidence of infectious endocarditis, anticoagulation contraindicated. 4. Mild aortic stenosis with moderate regurgitation. 5. Sick sinus syndrome, status post pacemaker placement - telemetry demonstrating atrial paced rhythm. 6. Paroxysmal atrial fibrillation - no recurrence. 7. History of mechanical fall with subdural hematoma. 8. Constipation - resolved 9. Acute kidney injury superimposed on chronic kidney disease - creatinine trending upward 10. Dyspepsia, dyspnea secondary to large ventral hiatal hernia - thoracic surgery input appreciated. PLAN AND RECOMMENDATIONS: Hold lasix. ARB will remain on hold as well. Repeat basic metabolic panel in the a.m. Other cardiovascular medications including hydralazine, isosorbide dinitrate, furosemide, clonidine, amiodarone, and metoprolol will be continued as previously ordered. Will continue to follow. Laboratory Results Last 24 Hours Test 05/22/16 16:22 05/22/16 20:38 05/22/16 20:39 05/22/16 23:58 Bedside Glucose 158 mg/dl 375 mg/dl 351 mg/dl 286 mg/dl Test 05/23/16 03:45 05/23/16 06:34 05/23/16 09:37 05/23/16 10:56 Bedside Glucose 207 mg/dl 187 mg/dl 211 mg/dl White Blood Count 9.95 K/uL Red Blood Count 4.10 M/uL Hemoglobin 12.5 g/dL Hematocrit 40.7 % Mean Corpuscular Volume 99.3 fL Mean Corpuscular Hemoglobin 30.5 pg Mean Corpuscular Hemoglobin Concent 30.7 g/dl RDW Standard Deviation 59.3 fL RDW Coefficient of Variation 16.2 % Platelet Count 144 K/uL Mean Platelet Volume 9.6 fL Nucleated RBC Absolute Count (auto) 0.03 K/uL Nucleated Red Blood Cells % 0.3 % Sodium Level 141 mmol/L Potassium Level 4.6 mmol/L Chloride Level 102 mmol/L Carbon Dioxide Level 31 mmol/L Anion Gap 8.0 mmol/L Blood Urea Nitrogen 72 mg/dl Creatinine 1.70 mg/dl Est Creatinine Clear Calc Drug Dose 27.8 ml/min Estimated GFR () 32.2 Estimated GFR (Non- 27.8 BUN/Creatinine Ratio 42.6 Random Glucose 272 mg/dl Calcium Level 8.5 mg/dl Magnesium Level 2.6 mg/dl
--- NOTE | 2016-05-23 12:24 | Progress Note ---
Internal Med Progress Note Date of Service: May 23, 2016. Provider Documentation: SUBJECTIVE: The patient was seen and examined Not yet ready to be discharged Continues to belch especially after food Wants to have Surgery during this admission Very frustrated with her condition and wants something to be done OBJECTIVE: Vital Signs-as noted below Exam: General-Minimal distress at rest Generally well today Eyes-Normal ENT-normal Neck-supple Lungs-Decreased breath sound bilaterally No crackles Heart-Regular,no murmur Abdomen-Soft,huge hiatal hernia ,no obstruction Extremities-no edema Neuro-AAOx3 Lab data as noted below. ASSESSMENT & PLAN: Uncontrolled Belching Has a huge Hiatal Hernia and very large Ventral hernia High risk for surgery But the condition is not getting any better Appreciate GI input,advised PO Cipro and PPI Appreciate Thoracic Surgery input Appreciate General Surgery input No surgery now ,will need further evaluation as an OP Will discuss with the Thoracic Surgeon for further plan ACUTE HYPOXIC RESPIRATORY FAILURE LIKELY MULTIFACTORIAL DUE TO ACUTE DIASTOLIC CHF AND/OR COPD EXACERBATION Presented with cough and SOB x 3 days; influenza outbreak at snf however patient has been on prophylactic Tamiflu since 05/05 87% on room air on arrival, improved with oxygen 2L via NC Has been on Steroid and Bronchodilators Appreciate cardiology input Uses Oxygen at night at home Will need 2 steps before discharge On oral Lasix Continue PT/OT Likely discharge tomorrow MITRAL VALVE ANOMALY echo-unchanged. cardiology on board [facility] fecal retention was on lactulose had bowel movement yesterday. stopped lactulose secondary to abdominal gas currently on miralx was still constipated on kub 05/17/16 had enema resulted in bowel movement Hyperkalemia k 5.3 losartan stopped dose of Kayexalate given Potassium normalized ATRIAL FIBRILLATION on amiodarone and metoprolol Not anticoagulated due to hx of hemorrhagic pericardial effusion and subdural hematoma s/p fall Rate is controlled SSS S/P PACER no acute issues HTN On clonidine, hydralazine, and metoprolol Hydralazine dose increased DM Hb a1c 7.0 03/2016 oral agents on hold. 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/H2 filipe HYPOTHYROIDISM on levothyroxine DEPRESSION on sertraline DVT PROPHYLAXIS SCDs due to hx of hemorrhagic pericardial effusion and subdural hematoma CODE STATUS DNR DISPO: pt/ot social service for d/c planning possible d/c soon 2 steps before discharge Vital Signs: Date Time Temp Pulse Resp B/P Pulse Ox O2 Delivery O2 Flow Rate FiO2 05/23/16 12:08 Room Air 05/23/16 12:00 36.5 68 20 138/76 93 Room Air 05/23/16 08:12 36.3 62 20 153/59 95 Nasal Cannula 2.0 05/23/16 08:00 Room Air 05/23/16 04:01 36.3 60 18 156/68 92 Nasal Cannula 2.0 05/23/16 04:00 Room Air 05/23/16 03:58 36.4 60 05/23/16 00:07 36.3 60 18 151/61 95 Nasal Cannula 2.0 05/22/16 23:59 Room Air 05/22/16 20:06 36.8 62 18 113/45 91 Room Air 05/22/16 20:00 Room Air 05/22/16 18:35 95 20 112/71 97 Nasal Cannula 2.0 05/22/16 16:00 Room Air 05/22/16 15:58 36.6 61 18 133/72 90 Room Air Lab Results: Results Past 24 Hours Test 05/22/16 16:22 05/22/16 20:38 05/22/16 20:39 05/22/16 23:58 Range/Units Bedside Glucose 158 375 351 286 70-90 mg/dl Test 05/23/16 03:45 05/23/16 06:34 05/23/16 09:37 05/23/16 10:56 Range/Units Bedside Glucose 207 187 211 70-90 mg/dl White Blood Count 9.95 4.8-10.8 K/uL Red Blood Count 4.10 4.2-5.4 M/uL Hemoglobin 12.5 12.0-16.0 g/dL Hematocrit 40.7 37-47 % Mean Corpuscular Volume 99.3 80-100 fL Mean Corpuscular Hemoglobin 30.5 25-34 pg Mean Corpuscular Hemoglobin Concent 30.7 32-36 g/dl RDW Standard Deviation 59.3 36.4-46.3 fL RDW Coefficient of Variation 16.2 11.5-14.5 % Platelet Count 144 130-400 K/uL Mean Platelet Volume 9.6 7.4-10.4 fL Nucleated RBC Absolute Count (auto) 0.03 0-0 K/uL Nucleated Red Blood Cells % 0.3 % Sodium Level 141 136-145 mmol/L Potassium Level 4.6 3.5-5.1 mmol/L Chloride Level 102 98-107 mmol/L Carbon Dioxide Level 31 21-32 mmol/L Anion Gap 8.0 3-11 mmol/L Blood Urea Nitrogen 72 7-18 mg/dl Creatinine 1.70 0.60-1.20 mg/dl Est Creatinine Clear Calc Drug Dose 27.8 ml/min Estimated GFR () 32.2 Estimated GFR (Non- 27.8 BUN/Creatinine Ratio 42.6 10-20 Random Glucose 272 70-99 mg/dl Calcium Level 8.5 8.5-10.1 mg/dl Magnesium Level 2.6 1.8-2.4 mg/dl
--- NOTE | 2016-05-23 18:20 | DIAGNOSTIC IMAGING REPORT ---
CT OF THE CHEST WITHOUT IV CONTRAST CLINICAL HISTORY: Acute respiratory failure with hypoxia. Evaluate hiatal hernia. Pulmonary evaluation before surgery. COMPARISON STUDY: Chest CT April 26, 2015 and chest radiograph May 18, 2016. CT DOSE: 730.96 mGy.cm TECHNIQUE: Axial images of the chest were obtained without IV contrast. Images were reviewed in the axial, sagittal, and coronal planes. IV contrast was not administered for this examination. Oral contrast was administered immediately prior to scan. FINDINGS: This exam is compromised by motion artifact. The heart is moderately enlarged. Note is made of a left subclavian dual-lead pacemaker. There is no pericardial effusion. There is a large sliding hiatal hernia with partially intrathoracic stomach. The gastric cardia, fundus and possible body of the stomach are located within the chest. There is a large amount of debris within the stomach. There is no pneumomediastinum. No enlarged thoracic lymph nodes are present. No pneumothorax or pleural effusion is present. Lungs are suboptimally assessed due to respiratory motion. Central airways are patent. There are numerous small nodules within the lungs. Comparison with prior exams is difficult given motion artifact on prior studies. A left upper lobe nodule measuring 5 mm is noted on image 128 of 321. There are multiple smaller nodules. Scattered subpleural groundglass opacities favor atelectasis. There is no convincing evidence for pneumonia. Visualized portions the upper abdomen partially visualize a complex bowel and fat-containing ventral hernia. The gallbladder is surgically absent. IMPRESSION: 1. Large sliding hiatal hernia with partially intrathoracic stomach. The gastric cardia, fundus and proximal body of the stomach within the chest. Large amount of ingested material within the stomach. 2. Suboptimal evaluation of the lungs due to motion artifact. No convincing evidence for pneumonia. Multiple subcentimeter pulmonary nodules. Comparison with prior exams is difficult given motion artifact on the study. These are probably benign but a follow-up chest CT in 6 months is recommended to ensure stability. 3. Moderate cardiomegaly. No pericardial effusion. No pleural effusion. Electronically signed by: John Quesada M.D. 05/23/2016 6:18 PM Dictated Date/Time: 05/23/2016 6:10 PM
--- NOTE | 2016-05-23 19:24 | SURGERY PROGRESS NOTE ---
DATE: 05/23/2016 I had a long discussion with Mrs. Robledo last night and this morning. I have examined her. There is some mild epigastric and left upper quadrant tenderness. Mrs. Robledo has stated that her symptoms are much worse. She has stated quite frankly to me in a lucid state that she would rather than continue to have the pain that she is having. I am going to offer this patient a left thoracotomy with a Belsey Jose IV repair. She and I had a long discussion about this today. She is quite eager to have this done. Unfortunately, I am not able to do it this week and I have scheduled her for 05-29-16. I have discussed this with Dr. Feliz. We will order a CAT scan with oral contrast tomorrow. NORMA
[2016-05-23] MEDS: MIRTAZAPINE TAB 15 MG TAB PO SCH (22:13)
[2016-05-23] MEDS: MONTELUKAST SOD 10 MG TAB PO SCH (22:19)
[2016-05-23] MEDS: ACETAMINOPHEN 325 MG TAB PO PRN (23:32)
[2016-05-23] MEDS: ONDANSETRON INJ 2 MG/ML 2 ML VIAL IV PRN (23:37)
[2016-05-24] VITALS (9 sets, daily range): BP systolic 132–179; BP diastolic 54–84; PULSE 60–92; TEMP 36.2–37; O2SAT 80–96
[2016-05-24] MEDS: INSULIN ASPART 100 UNITS/ML 3 ML PEN SC SCH ×5 (02:12→20:57)
[2016-05-24] MEDS: LEVOTHYROXINE 50 MCG TAB PO SCH (05:43)
[2016-05-24] MEDS: ISOSORBIDE DINITRATE 20 MG TAB PO SCH ×3 (06:09→17:46)
--- NOTE | 2016-05-24 08:46 | Surgery Progress Note ---
Surgery Progress Note Date of Service May 24, 2016. Subjective pt sitting up eating looks much better than sunday very pleased that she's having surgery Objective Vital Signs: Date Time Temp Pulse Resp B/P Pulse Ox O2 Delivery O2 Flow Rate FiO2 05/24/16 08:12 36.3 60 16 145/70 95 Nasal Cannula 2.0 05/24/16 01:31 96 Nasal Cannula 2.0 05/24/16 01:30 145/84 80 Room Air 05/24/16 00:40 36.6 92 20 179/75 96 Room Air 05/23/16 23:50 Room Air 05/23/16 20:25 36.8 60 18 156/79 92 Room Air 05/23/16 18:06 36.5 64 18 141/68 96 Room Air 05/23/16 17:37 36.5 61 18 93 2.0 05/23/16 16:00 Room Air 05/23/16 15:19 36.5 61 18 148/59 93 Room Air 05/23/16 12:08 Room Air 05/23/16 12:00 36.5 68 20 138/76 93 Room Air General Appearance: no apparent distress Head: normocephalic Neck: supple Respiratory/Chest: no respiratory distress, no accessory muscle use Abdomen: + pertinent finding (large ventral hernia. nontender) Extremities: non-tender Laboratory Results: Results Past 24 Hours Test 05/23/16 09:37 05/23/16 10:56 05/23/16 15:59 05/24/16 02:09 Range/Units White Blood Count 9.95 4.8-10.8 K/uL Red Blood Count 4.10 4.2-5.4 M/uL Hemoglobin 12.5 12.0-16.0 g/dL Hematocrit 40.7 37-47 % Mean Corpuscular Volume 99.3 80-100 fL Mean Corpuscular Hemoglobin 30.5 25-34 pg Mean Corpuscular Hemoglobin Concent 30.7 32-36 g/dl RDW Standard Deviation 59.3 36.4-46.3 fL RDW Coefficient of Variation 16.2 11.5-14.5 % Platelet Count 144 130-400 K/uL Mean Platelet Volume 9.6 7.4-10.4 fL Nucleated RBC Absolute Count (auto) 0.03 0-0 K/uL Nucleated Red Blood Cells % 0.3 % Sodium Level 141 136-145 mmol/L Potassium Level 4.6 3.5-5.1 mmol/L Chloride Level 102 98-107 mmol/L Carbon Dioxide Level 31 21-32 mmol/L Anion Gap 8.0 3-11 mmol/L Blood Urea Nitrogen 72 7-18 mg/dl Creatinine 1.70 0.60-1.20 mg/dl Est Creatinine Clear Calc Drug Dose 27.8 ml/min Estimated GFR () 32.2 Estimated GFR (Non- 27.8 BUN/Creatinine Ratio 42.6 10-20 Random Glucose 272 70-99 mg/dl Calcium Level 8.5 8.5-10.1 mg/dl Magnesium Level 2.6 1.8-2.4 mg/dl Bedside Glucose 211 151 164 70-90 mg/dl Test 05/24/16 07:34 Range/Units Bedside Glucose 194 70-90 mg/dl Assessment & Plan Dr. Rosas planning thoracic approach to repair/reduce diaphragmatic hernia I agree this is the best approach discussed with pt, ventral hernia very large and this is not the source of the majority of her symptoms I feel it would be far to high of risk/with limited benefit to repair at same time after her H/H repair, if she recovers fully and ventral hernia still bothering her, we can discuss repair of that at that time will s/o please call if I can be of assistance thank you
[2016-05-24] MEDS: POLYETHYLENE (MIRALAX) 17 GM PACK PO SCH (09:00)
[2016-05-24] MEDS: SERTRALINE HCL 100 MG TAB PO SCH (09:04)
[2016-05-24] MEDS: AMIODARONE 200 MG TAB PO SCH (09:04)
[2016-05-24] MEDS: GABAPENTIN 100 MG CAP PO SCH ×3 (09:04→20:47)
[2016-05-24] MEDS: RANITIDINE HCL 150 MG TAB PO SCH ×2 (09:05→20:50)
[2016-05-24] MEDS: DOCUSATE SODIUM/SENNA 50/8.6MG TAB PO SCH ×2 (09:05→20:49)
[2016-05-24] MEDS: PANTOprazole SOD 40 MG TAB PO SCH ×2 (09:05→20:49)
[2016-05-24] MEDS: CIPROFLOXACIN 250 MG TAB PO SCH ×2 (09:06→20:52)
[2016-05-24] MEDS: FLUTICASONE PROPIONATE NA SPR 16 GM BTL SCH (09:06)
[2016-05-24] MEDS: CLONIDINE HCL 0.1 MG TAB PO SCH ×2 (09:06→20:46)
[2016-05-24] MEDS: ATORVASTATIN 20 MG TAB PO SCH (09:07)
[2016-05-24] MEDS: FERROUS SULFATE 325 MG TAB PO SCH (09:07)
[2016-05-24] MEDS: GUAIFENESIN 600 MG TABCR PO SCH (09:07)
[2016-05-24] MEDS: SIMETHICONE 80 MG CHEW PO SCH ×3 (09:09→20:47)
[2016-05-24] MEDS: FUROSEMIDE 40 MG TAB PO SCH (09:09)
[2016-05-24] MEDS: METOPROLOL TARTRATE 50 MG TAB PO SCH ×2 (09:09→20:47)
[2016-05-24] MEDS: INSULIN GLARGINE SOLOSTAR 100 UNITS/ML 3 ML PEN SC SCH ×2 (09:16→21:00)
--- NOTE | 2016-05-24 11:36 | Pharmacy Progress Note ---
Glycemic Control: Progress Nt Date of Service May 24, 2016. Scope Glycemic Pharmacist consulted by Dr Hinton on 05/15/16 for glycemic control and to write orders per [facility] inpatient glycemic control protocol. Objective Accuchecks BSG (last 24hrs): Test 05/23/16 15:59 05/24/16 02:09 05/24/16 07:34 Bedside Glucose 151 mg/dl (70-90) 164 mg/dl (70-90) 194 mg/dl (70-90) Recent Pertinent Medications Outpatient Anti-diabetic Regimen: * Glipizide ER 2.5 mg po daily * A1c = 7.0 % 03/2016 The patient is currently receiving: * Basal insulin: Lantus 15 units SC qAM Lantus 10 units qPM (1/ for BSG < 140 mg/dL, hold for BSG < 110 mg/dL or prednisone stopped) * Correctional Insulin: Novolog Correction per scale ACHS Goal Range: Low 120 mg/dL - High 150 mg/dL Correction Factor: 25 mg/dL/unit * Prandial insulin: Per carb ratio of 1 unit per 6 grams CHO consumed * Oral Agents: On hold Risk Factors for Insulin Resistance: * Steroids: Prednisone 20 mg po BID * Infection: on ciprofloxacin po * Surgery: repair of diaphragmatic hernia planned for 05/29 * Diet: T2DM / low Na Assessment & Plan ASSESSMENT: * ADA & AACE recommend a goal blood sugar range 140-180 mg/dl for the majority of critically ill & non-critically ill patients. However, more stringent targets may be selected in individual cases. 05/23/16 * 80 yo F with good outpatient control based on HbA1c, managed on oral medication alone. * Patient is requiring a significant amount of insulin 2nd steroid-induced hyperglycemia. She will require a significant reduction once steroids tapered / stopped * Was hesitant to increase Lantus 2nd above, but patient has been requiring significant correctional insulin overnight and had a high BSG to 375 mg/dL yesterday HS. Will add PM Lantus, but hold if prednisone not administered * Correctional insulin overnight insufficient to decrease BSG's appropriately - will tighten correction today but loosen overnight 2nd additional Lantus ordered * Will tighten carb ratio further as steroid-induced hyperglycemia responds best to additional prandial coverage 05/24/16 * Patient received additional Lantus last night, but AM fasting BSG still elevated. Will adjust half/hold parameters on PM Lantus so that patient may receive more PM Lantus * Correctional insulin administered at HS and overnight insufficient to decrease BSG's. Will tighten. PLAN FOR INPATIENT GLYCEMIC CONTROL: * Continue to hold outpatient oral diabetes medications * Basal insulin with LANTUS 15 units SQ qAM * 1/2 dose for BSG < 120 mg/dL * Adjust Basal insulin with LANTUS 10 units SQ qPM * Hold if prednisone not administered OR if BSG < 100 mg/dL * 1/2 dose for BSG 100-120 mg/dL * Correctional Insulin with NOVOLOG per scale ACHS or Q6hrs while NPO * Goal Range: Low 120 mg/dL - High 150 mg/dL * Tighten Correction Factor: 20 mg/dL/unit * Nutritional / Prandial insulin per carb ratio of 1 unit per 6 grams CHO consumed * Please note that the plan above was derived based on current level of insulin resistance and hospital stress. These recommendations are appropriate for inpatient admission only. Plan of care upon discharge will need to be reassessed to avoid potential outpatient hypo/hyperglycemia. Thank you.
--- NOTE | 2016-05-24 17:01 | Progress Note ---
Internal Med Progress Note Date of Service: May 24, 2016. Provider Documentation: SUBJECTIVE: The patient was seen and examined Will have Surgery on Sunday Continue to have severe symptoms Not yet ready to be discharged OBJECTIVE: Vital Signs-as noted below Exam: General-Minimal distress at rest Generally well today Eyes-Normal ENT-normal Neck-supple Lungs-Decreased breath sound bilaterally No crackles Heart-Regular,no murmur Abdomen-Soft,huge hiatal hernia ,no obstruction Extremities-no edema Neuro-AAOx3 Lab data as noted below. ASSESSMENT & PLAN: Uncontrolled Belching-continuing Has a huge Hiatal Hernia and very large Ventral hernia High risk for surgery But the condition is not getting any better Appreciate GI input,advised PO Cipro and PPI Appreciate Thoracic Surgery input Appreciate General Surgery input Discussed with Dr Rosas -will do surgery on Sunday Patient will stay in the hospital for now CT of the Chest-Huge hiatal hernia is noted again ACUTE HYPOXIC RESPIRATORY FAILURE LIKELY MULTIFACTORIAL DUE TO ACUTE DIASTOLIC CHF AND/OR COPD EXACERBATION Presented with cough and SOB x 3 days; influenza outbreak at group home however patient has been on prophylactic Tamiflu since 05/05 87% on room air on arrival, improved with oxygen 2L via NC Has been on Steroid and Bronchodilators Appreciate cardiology input Uses Oxygen at night at home Will need 2 steps before discharge On oral Lasix Continue PT/OT MITRAL VALVE ANOMALY echo-unchanged. cardiology on board [employer] [facility] fecal retention was on lactulose had bowel movement yesterday. stopped lactulose secondary to abdominal gas currently on miralx was still constipated on kub 05/17/16 had enema resulted in bowel movement Hyperkalemia k 5.3 losartan stopped dose of Kayexalate given Potassium normalized ATRIAL FIBRILLATION on amiodarone and metoprolol Not anticoagulated due to hx of hemorrhagic pericardial effusion and subdural hematoma s/p fall Rate is controlled SSS S/P PACER no acute issues HTN On clonidine, hydralazine, and metoprolol Hydralazine dose increased DM Hb a1c 7.0 03/2016 oral agents on hold. 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/H2 filipe HYPOTHYROIDISM on levothyroxine DEPRESSION on sertraline DVT PROPHYLAXIS SCDs due to hx of hemorrhagic pericardial effusion and subdural hematoma CODE STATUS DNR DISPO: pt/ot Scheduled Surgery on Sunday Vital Signs: Date Time Temp Pulse Resp B/P Pulse Ox O2 Delivery O2 Flow Rate FiO2 05/24/16 16:00 90 Room Air 05/24/16 14:53 36.2 60 16 137/54 90 Room Air 05/24/16 11:22 37.0 63 18 145/63 94 Room Air 05/24/16 08:12 36.3 60 16 145/70 95 Nasal Cannula 2.0 05/24/16 08:00 96 Nasal Cannula 2.0 05/24/16 01:31 96 Nasal Cannula 2.0 05/24/16 01:30 145/84 80 Room Air 05/24/16 00:40 36.6 92 20 179/75 96 Room Air 05/23/16 23:50 Room Air 05/23/16 20:25 36.8 60 18 156/79 92 Room Air 05/23/16 18:06 36.5 64 18 141/68 96 Room Air 05/23/16 17:37 36.5 61 18 93 2.0 Lab Results: Results Past 24 Hours Test 05/24/16 02:09 05/24/16 07:34 05/24/16 11:32 05/24/16 16:37 Range/Units Bedside Glucose 164 194 269 148 70-90 mg/dl
--- NOTE | 2016-05-24 17:51 | SURGERY PROGRESS NOTE ---
DATE: 05/24/2016 SUBJECTIVE: Ms. Robledo was seen ambulating in the hallway with a walker with physical therapy today. She is in better spirits. She is quite happy that "I'm going to have something done about this pain." She is on room air 95% sat and she looks much better, ambulating. CT scan performed yesterday shows that she does have a large amount of her stomach in her chest. I had a long talk about this. She does have some small pulmonary nodules and I do not think this is an issue really. I am going to offer her a left thoracotomy with a Belsey tosin IV, repair of her hiatal hernia. She is quite miserable with her symptoms. I have explained to her that she has high risk given her age and other factors, however, I think that this would be a suitable operation for this patient. We discussed my plan in detail, especially our expected course. She understands. She also understands there is going to be pain with this. We will get this set up for Sunday05/29/2016.
[2016-05-24] MEDS: MIRTAZAPINE TAB 15 MG TAB PO SCH (20:53)
[2016-05-24] MEDS: MONTELUKAST SOD 10 MG TAB PO SCH (20:53)
[2016-05-25] VITALS (8 sets, daily range): BP systolic 127–178; BP diastolic 61–95; PULSE 59–72; TEMP 36.4–37; O2SAT 89–96
[2016-05-25] MEDS: ISOSORBIDE DINITRATE 20 MG TAB PO SCH ×3 (06:38→16:51)
[2016-05-25] MEDS: LEVOTHYROXINE 50 MCG TAB PO SCH (06:38)
[2016-05-25] MEDS: POLYETHYLENE (MIRALAX) 17 GM PACK PO SCH (08:00)
[2016-05-25] MEDS: PANTOprazole SOD 40 MG TAB PO SCH ×2 (08:02→19:41)
[2016-05-25] MEDS: FERROUS SULFATE 325 MG TAB PO SCH (08:02)
[2016-05-25] MEDS: AMIODARONE 200 MG TAB PO SCH (08:02)
[2016-05-25] MEDS: FLUTICASONE PROPIONATE NA SPR 16 GM BTL SCH (08:02)
[2016-05-25] MEDS: SERTRALINE HCL 100 MG TAB PO SCH (08:02)
[2016-05-25] MEDS: SIMETHICONE 80 MG CHEW PO SCH ×3 (08:03→19:40)
[2016-05-25] MEDS: GABAPENTIN 100 MG CAP PO SCH ×3 (08:03→19:38)
[2016-05-25] MEDS: RANITIDINE HCL 150 MG TAB PO SCH ×2 (08:03→19:39)
[2016-05-25] MEDS: FUROSEMIDE 40 MG TAB PO SCH (08:03)
[2016-05-25] MEDS: ATORVASTATIN 20 MG TAB PO SCH (08:03)
[2016-05-25] MEDS: METOPROLOL TARTRATE 50 MG TAB PO SCH ×2 (08:03→19:41)
[2016-05-25] MEDS: GUAIFENESIN 600 MG TABCR PO SCH (08:03)
[2016-05-25] MEDS: CLONIDINE HCL 0.1 MG TAB PO SCH ×2 (08:03→19:44)
[2016-05-25] MEDS: DOCUSATE SODIUM/SENNA 50/8.6MG TAB PO SCH ×2 (08:03→19:36)
[2016-05-25] MEDS: CIPROFLOXACIN 250 MG TAB PO SCH ×2 (08:04→19:37)
[2016-05-25] MEDS: INSULIN ASPART 100 UNITS/ML 3 ML PEN SC SCH ×4 (09:13→21:18)
[2016-05-25] MEDS: INSULIN GLARGINE SOLOSTAR 100 UNITS/ML 3 ML PEN SC SCH ×2 (09:14→21:16)
--- NOTE | 2016-05-25 10:12 | SURGERY PROGRESS NOTE ---
DATE: 05/25/2016 HISTORY OF PRESENT ILLNESS: Ms. Robledo was seen today on 05/25/2016. She is sitting up. She is eating breakfast. She is complaining of terrible belching and abdominal pain and left costal margin pain. She states that her abdominal wall hernia that does not bother her at all. We had a long talk about it in the office. I showed her exactly where her incision will be for her left thoracotomy. I explained her postoperative care in the intensive care unit as well as chest tubes. I also explained that at her age with other comorbid conditions if anything were to happen untoward, she may not survive. She understands this and willingly accepts it as she states that she is "cannot live like this". I think a Belsey Jose IV repair is a good choice for this patient. I think she is going to do well with this.
--- NOTE | 2016-05-25 11:44 | Pharmacy Progress Note ---
Glycemic Control: Progress Nt Date of Service May 25, 2016. Scope Glycemic Pharmacist consulted by Dr Hinton on 05/15/16 for glycemic control and to write orders per [facility] inpatient glycemic control protocol. Objective Accuchecks BSG (last 24hrs): Test 05/24/16 16:37 05/24/16 20:22 05/25/16 08:14 05/25/16 11:28 Bedside Glucose 148 mg/dl (70-90) 115 mg/dl (70-90) 227 mg/dl (70-90) 269 mg/dl (70-90) Recent Pertinent Medications Outpatient Anti-diabetic Regimen: * Glipizide ER 2.5 mg po daily * A1c = 7.0 % 03/2016 The patient is currently receiving: * Basal insulin: Lantus 15 units SC qAM Lantus 10 units qPM (1/2 for BSG < 120 mg/dL, hold for BSG < 100 mg/dL or prednisone stopped) * Correctional Insulin: Novolog Correction per scale ACHS Goal Range: Low 120 mg/dL - High 150 mg/dL Correction Factor: 20 mg/dL/unit * Prandial insulin: Per carb ratio of 1 unit per 6 grams CHO consumed * Oral Agents: On hold Risk Factors for Insulin Resistance: * Steroids: Prednisone 20 mg po BID * Infection: on ciprofloxacin po * Surgery: repair of diaphragmatic hernia planned for 05/29 * Diet: T2DM / low Na Assessment & Plan ASSESSMENT: * ADA & AACE recommend a goal blood sugar range 140-180 mg/dl for the majority of critically ill & non-critically ill patients. However, more stringent targets may be selected in individual cases. 05/24/16 * Patient received additional Lantus last night, but AM fasting BSG still elevated. Will adjust half/hold parameters on PM Lantus so that patient may receive more PM Lantus * Correctional insulin administered at HS and overnight insufficient to decrease BSG's. Will tighten. 05/25/16 * Patient received 5 units of Lantus last night, but BSG's still elevated to 227 mg/dL this AM. Will change parameters so patient is likely to receive more Lantus in the evenings * BSG's decreased steadily from 269 to 148 to 115 mg/dL yesterday after tightening correction factor. Lunch BSG today again 269 mg/dL - based on yesterday's trend may anticipate decrease tonight. No change to Novolog for now. PLAN FOR INPATIENT GLYCEMIC CONTROL: * Continue to hold outpatient oral diabetes medications * Basal insulin with LANTUS 15 units SQ qAM * 1/2 dose for BSG < 110 mg/dL * Adjust Basal insulin with LANTUS 10 units SQ qPM * Hold if prednisone not administered * 1/2 dose for BSG < 100 mg/dL * Correctional Insulin with NOVOLOG per scale ACHS or Q6hrs while NPO * Goal Range: Low 120 mg/dL - High 150 mg/dL * Correction Factor: 20 mg/dL/unit * Nutritional / Prandial insulin per carb ratio of 1 unit per 6 grams CHO consumed * Please note that the plan above was derived based on current level of insulin resistance and hospital stress. These recommendations are appropriate for inpatient admission only. Plan of care upon discharge will need to be reassessed to avoid potential outpatient hypo/hyperglycemia. Thank you.
--- NOTE | 2016-05-25 18:23 | Progress Note ---
Internal Med Progress Note Date of Service: May 25, 2016. Provider Documentation: SUBJECTIVE: The patient was seen and examined Will have Surgery on Sunday Continue to have severe symptoms Not yet ready to be discharged Waiting for the Surgery on Sunday OBJECTIVE: Vital Signs-as noted below Exam: General-Minimal distress at rest Very Anxious Eyes-Normal ENT-normal Neck-supple Lungs-Decreased breath sound bilaterally No crackles Heart-Regular,no murmur Abdomen-Soft,huge hiatal hernia ,no obstruction Extremities-no edema Neuro-AAOx3 Lab data as noted below. ASSESSMENT & PLAN: Uncontrolled Belching-continuing Has a huge Hiatal Hernia and very large Ventral hernia High risk for surgery But the condition is not getting any better Appreciate GI input,advised PO Cipro and PPI Appreciate Thoracic Surgery input Appreciate General Surgery input Discussed with Dr Rosas -will do surgery on Sunday CT of the Chest-Huge hiatal hernia is noted again Remains symptomatic and will need to stay in the hospital for surgery ACUTE HYPOXIC RESPIRATORY FAILURE LIKELY MULTIFACTORIAL DUE TO ACUTE DIASTOLIC CHF AND/OR COPD EXACERBATION Presented with cough and SOB x 3 days; influenza outbreak at shelter however patient has been on prophylactic Tamiflu since 05/05 87% on room air on arrival, improved with oxygen 2L via NC Has been on Steroid and Bronchodilators Appreciate cardiology input Uses Oxygen at night at home Will need 2 steps before discharge On oral Lasix Continue PT/OT MITRAL VALVE ANOMALY ECHO:: * Sinus rhythm was present during the echocardiogram. * There is a 0.6cm x 0.6cm mobile echodensity attached to ventricular surface of the mitral valve annulus near the left ventricular outflow tract. * Calcified mitral apparatus. * The aortic valve is moderately calcified. * Mild valvular aortic stenosis. * Moderate aortic regurgitation. * The left ventricular wall motion is normal. * Ejection Fraction = 60-65%. * Grade I diastolic dysfunction, (abnormal relaxation pattern). * Compared to the most recent echocardiogram, the echodensity is unchanged. cardiology on board Remains stable CONSTIPATION KU fecal retention was on lactulose had bowel movement yesterday. stopped lactulose secondary to abdominal gas currently on miralx was still constipated on kub 05/17/16 Has had enema resulted in bowel movement Hyperkalemia k 5.3 losartan stopped dose of Kayexalate given Potassium normalized ATRIAL FIBRILLATION on amiodarone and metoprolol Not anticoagulated due to hx of hemorrhagic pericardial effusion and subdural hematoma s/p fall Rate is controlled SSS S/P PACER no acute issues HTN On clonidine, hydralazine, and metoprolol Hydralazine dose increased DM Hb a1c 7.0 03/2016 oral agents on hold. 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/H2 filipe HYPOTHYROIDISM on levothyroxine DEPRESSION on sertraline DVT PROPHYLAXIS SCDs due to hx of hemorrhagic pericardial effusion and subdural hematoma CODE STATUS DNR DISPO: pt/ot Scheduled Surgery on Sunday Vital Signs: Date Time Temp Pulse Resp B/P Pulse Ox O2 Delivery O2 Flow Rate FiO2 05/25/16 15:33 37.0 72 18 139/73 93 Room Air 05/25/16 13:39 64 139/73 05/25/16 08:00 93 Nasal Cannula 2.0 05/25/16 07:50 37.0 60 18 140/95 89 Room Air 05/25/16 07:50 93 Nasal Cannula 2.0 05/25/16 06:44 67 178/81 05/25/16 00:20 36.5 60 20 130/78 92 Room Air 05/25/16 00:00 Room Air 05/24/16 20:34 62 18 132/64 93 Room Air Lab Results: Results Past 24 Hours Test 05/24/16 20:22 05/25/16 08:14 05/25/16 11:28 05/25/16 16:49 Range/Units Bedside Glucose 115 227 269 191 70-90 mg/dl
[2016-05-25] MEDS: MONTELUKAST SOD 10 MG TAB PO SCH (19:36)
[2016-05-25] MEDS: MIRTAZAPINE TAB 15 MG TAB PO SCH (19:38)
[2016-05-25] MEDS: TRAMADOL HCL 50 MG TAB PO PRN (21:13)
[2016-05-26] VITALS (7 sets, daily range): BP systolic 137–169; BP diastolic 70–76; PULSE 60–73; TEMP 36.4–36.5; O2SAT 93–94
[2016-05-26] MEDS: LEVOTHYROXINE 50 MCG TAB PO SCH (06:34)
[2016-05-26] MEDS: FLUTICASONE PROPIONATE NA SPR 16 GM BTL SCH (07:47)
[2016-05-26] MEDS: ISOSORBIDE DINITRATE 20 MG TAB PO SCH ×3 (07:47→18:04)
[2016-05-26] MEDS: CLONIDINE HCL 0.1 MG TAB PO SCH ×2 (07:48→20:39)
[2016-05-26] MEDS: AMIODARONE 200 MG TAB PO SCH (07:48)
[2016-05-26] MEDS: FUROSEMIDE 40 MG TAB PO SCH (07:48)
[2016-05-26] MEDS: FERROUS SULFATE 325 MG TAB PO SCH (07:49)
[2016-05-26] MEDS: RANITIDINE HCL 150 MG TAB PO SCH ×2 (07:49→20:36)
[2016-05-26] MEDS: SERTRALINE HCL 100 MG TAB PO SCH (07:49)
[2016-05-26] MEDS: GABAPENTIN 100 MG CAP PO SCH ×3 (07:49→20:35)
[2016-05-26] MEDS: DOCUSATE SODIUM/SENNA 50/8.6MG TAB PO SCH ×2 (07:49→20:36)
[2016-05-26] MEDS: METOPROLOL TARTRATE 50 MG TAB PO SCH ×2 (07:49→20:38)
[2016-05-26] MEDS: ATORVASTATIN 20 MG TAB PO SCH (07:49)
[2016-05-26] MEDS: POLYETHYLENE (MIRALAX) 17 GM PACK PO SCH (07:49)
[2016-05-26] MEDS: SIMETHICONE 80 MG CHEW PO SCH ×2 (07:49→13:57)
[2016-05-26] MEDS: GUAIFENESIN 600 MG TABCR PO SCH (07:49)
[2016-05-26] MEDS: PANTOprazole SOD 40 MG TAB PO SCH ×2 (07:49→20:37)
[2016-05-26] MEDS: INSULIN ASPART 100 UNITS/ML 3 ML PEN SC SCH ×4 (08:36→20:39)
[2016-05-26] MEDS: CIPROFLOXACIN 250 MG TAB PO SCH (08:37)
[2016-05-26] MEDS: INSULIN GLARGINE SOLOSTAR 100 UNITS/ML 3 ML PEN SC SCH ×2 (08:37→20:41)
--- NOTE | 2016-05-26 09:00 | Surgery Progress Note ---
Subjective Date of Service: May 26, 2016. Pt. denies CP or SOB. No N/V or abdominal pain this am. Objective Vitals Date Time Temp Pulse Resp B/P Pulse Ox O2 Delivery O2 Flow Rate FiO2 05/26/16 07:54 36.4 63 18 169/72 94 Nasal Cannula 1.0 05/26/16 07:50 66 169/72 05/26/16 00:00 Room Air 05/25/16 23:58 36.4 62 20 127/77 96 2.0 05/25/16 19:33 59 135/61 05/25/16 16:00 Room Air 05/25/16 15:33 37.0 72 18 139/73 93 Room Air 05/25/16 13:39 64 139/73 Physical Exam General: + well developed, + well nourished CV: + RRR Pulmonary: + lungs clear, No accessory muscle use, No respiratory distress Extremities: No calf tenderness Neurologic: + alert & oriented x 3 Assessment & Plan 80 year old female with hiatal hernia -surgical repair planned for 05/29/16 -will place appropriate pre-op orders the day before planned surgery
[2016-05-26] MEDS ORDERED: LEVALBUTEROL/IPRATROPIUM NEB INH ONE (15:00)
[2016-05-26] MEDS ORDERED: LEVALBUTEROL/IPRATROPIUM NEB INH PRN (15:00)
[2016-05-26] MEDS ORDERED: LEVALBUTEROL 1.25MG/0.5ML NEB INH ONE (15:15)
[2016-05-26] MEDS ORDERED: IPRATROPIUM BROMIDE NEB SOLN 0.02% 2.5 ML VIAL INH ONE (15:15)
[2016-05-26] MEDS ORDERED: SOAP SUDS ENEMA PR ONE (15:30)
--- NOTE | 2016-05-26 16:33 | Progress Note ---
Internal Med Progress Note Date of Service: May 26, 2016. Provider Documentation: SUBJECTIVE: having significant belching has some sob eating ok constipated and requests for enema OBJECTIVE: Vital Signs-as noted below Exam: General-alert and oriented ENT-normal hearing Neck-no neck masses Lungs-cta b/l no wheezing or crackles Heart-s1 and s2 heard regular rate and rhythm no murmurs Abdomen-soft bowel sounds present non tender no distension Extremities-no erythema Neuro-alert and awake moves extremities Lab data as noted below. ASSESSMENT & PLAN: 80 yoF with significant heart history and valve issues admitted for increased work of breathing 2/2 CHF exacerbation. ACUTE HYPOXIC RESPIRATORY FAILURE, LIKELY MULTIFACTORIAL DUE TO ACUTE DIASTOLIC CHF AND/OR COPD EXACERBATION Presented with cough and SOB x 3 days; [facility] however patient has been on prophylactic Tamilfu since 05/05 87% on room air on arrival, improved with oxygen 2L via NC Treated with steroids, Lasix and abx echo no change from previous cardiology on board Cardiology started on lower dose Losartan which was stopped secondary to arf and hyperkalemia requiring oxygen while sleeping on nocturna pulse ox study restarted Lasix 40mg daily. pt/ot nebs prn MITRAL VALVE ANOMALY echo-unchanged. cardiology on board stable CONSTIPATION KU fecal retention was on lactulose stopped lactulose secondary to abdominal gas currently on miralx will try enema today Belching mostly from hiatal hernia severe has this for some time high risk for surgery Worsening started on cipro for one week consulted ct surgery to reevaluate for any options plan for surgery on Sunday Hyperkalemia k 5.3 today losartan stopped had a dose of Kayexalate resolved ATRIAL FIBRILLATION on amiodarone and metoprolol rate controlled Not anticoagulated due to hx of hemorrhagic pericardial effusion and subdural hematoma s/p fall SSS S/P PACER no acute issues HTN on clonidine, hydralazine, and metoprolol hydralazine dose increased will monitor DM hgb a1c 7.0 03/2016 oral agents on hold. SSI while hospitalized GERD, HIATAL HERNIA on PPI/H2 filipe HYPOTHYROIDISM on levothyroxine DEPRESSION on sertraline DVT PROPHYLAXIS SCDs due to hx of hemorrhagic pericardial effusion and subdural hematoma CODE STATUS DNR DISPO: pt/ot social service for d/c planning await surgery Vital Signs: Date Time Temp Pulse Resp B/P Pulse Ox O2 Delivery O2 Flow Rate FiO2 1/27/17 15:18 36.5 73 20 154/76 93 Room Air 05/26/16 15:12 60 20 94 Room Air 05/26/16 13:58 60 137/70 05/26/16 08:00 Room Air 05/26/16 07:54 36.4 63 18 169/72 94 Nasal Cannula 1.0 05/26/16 07:50 66 169/72 05/26/16 00:00 Room Air 05/25/16 23:58 36.4 62 20 127/77 96 2.0 05/25/16 19:33 59 135/61 Lab Results: Results Past 24 Hours Test 05/25/16 16:49 05/25/16 19:57 05/26/16 07:55 05/26/16 11:51 Range/Units Bedside Glucose 191 325 150 215 70-90 mg/dl Test 05/26/16 16:06 Range/Units Bedside Glucose 192 70-90 mg/dl
[2016-05-26] MEDS: MONTELUKAST SOD 10 MG TAB PO SCH (20:36)
[2016-05-26] MEDS: MIRTAZAPINE TAB 15 MG TAB PO SCH (20:38)
[2016-05-27] VITALS (9 sets, daily range): BP systolic 143–165; BP diastolic 68–79; PULSE 59–84; TEMP 36.4–36.5; O2SAT 92–94
[2016-05-27] MEDS: POLYETHYLENE (MIRALAX) 17 GM PACK PO SCH (08:00)
[2016-05-27] MEDS: CLONIDINE HCL 0.1 MG TAB PO SCH ×2 (08:13→20:41)
[2016-05-27] MEDS: LEVOTHYROXINE 50 MCG TAB PO SCH (08:14)
[2016-05-27] MEDS: DOCUSATE SODIUM/SENNA 50/8.6MG TAB PO SCH ×2 (08:14→20:43)
[2016-05-27] MEDS: METOPROLOL TARTRATE 50 MG TAB PO SCH ×2 (08:14→20:41)
[2016-05-27] MEDS: RANITIDINE HCL 150 MG TAB PO SCH ×2 (08:14→20:40)
[2016-05-27] MEDS: ISOSORBIDE DINITRATE 20 MG TAB PO SCH ×3 (08:14→17:18)
[2016-05-27] MEDS: PANTOprazole SOD 40 MG TAB PO SCH ×2 (08:14→20:43)
[2016-05-27] MEDS: ATORVASTATIN 20 MG TAB PO SCH (08:15)
[2016-05-27] MEDS: SERTRALINE HCL 100 MG TAB PO SCH (08:15)
[2016-05-27] MEDS: FERROUS SULFATE 325 MG TAB PO SCH (08:15)
[2016-05-27] MEDS: GABAPENTIN 100 MG CAP PO SCH ×3 (08:15→20:43)
[2016-05-27] MEDS: GUAIFENESIN 600 MG TABCR PO SCH (08:15)
[2016-05-27] MEDS: FUROSEMIDE 40 MG TAB PO SCH (08:16)
[2016-05-27] MEDS: FLUTICASONE PROPIONATE NA SPR 16 GM BTL SCH (08:16)
[2016-05-27] MEDS: AMIODARONE 200 MG TAB PO SCH (08:16)
[2016-05-27] MEDS: ALBUT/IPRATROP 3MG/0.5MG NEB 3 ML VIAL INH PRN ×2 (08:44→16:29)
[2016-05-27] MEDS ORDERED: INSULIN GLARGINE SOLOSTAR 100 UNITS/ML 3 ML PEN SC ONE (08:45)
[2016-05-27] MEDS: INSULIN ASPART 100 UNITS/ML 3 ML PEN SC SCH ×4 (09:40→20:38)
[2016-05-27] MEDS: ACETAMINOPHEN 325 MG TAB PO PRN (12:30)
--- NOTE | 2016-05-27 12:55 | Pharmacy Progress Note ---
Glycemic Control: Progress Nt Date of Service May 27, 2016. Scope Glycemic Pharmacist consulted by Dr Hinton on 05/15/16 for glycemic control and to write orders per [facility] inpatient glycemic control protocol. Objective Accuchecks BSG (last 24hrs): Test 05/26/16 16:06 05/26/16 20:08 05/27/16 08:09 05/27/16 11:20 Bedside Glucose 192 mg/dl (70-90) 150 mg/dl (70-90) 222 mg/dl (70-90) 274 mg/dl (70-90) Recent Pertinent Medications Outpatient Anti-diabetic Regimen: * Glipizide ER 2.5 mg po daily * A1c = 7.0 % 03/2016 The patient is currently receiving: * Basal insulin: Lantus 15 units SC qAM Lantus 10 units qPM * Correctional Insulin: Novolog Correction per scale ACHS Goal Range: Low 120 mg/dL - High 150 mg/dL Correction Factor: 20 mg/dL/unit * Prandial insulin: Per carb ratio of 1 unit per 6 grams CHO consumed * Oral Agents: On hold Risk Factors for Insulin Resistance: * Steroids: Prednisone 20 mg po BID * Surgery: repair of diaphragmatic hernia planned for 05/29 * Diet: T2DM / low Na Assessment & Plan ASSESSMENT: * ADA & AACE recommend a goal blood sugar range 140-180 mg/dl for the majority of critically ill & non-critically ill patients. However, more stringent targets may be selected in individual cases. 05/24/16 * Patient received additional Lantus last night, but AM fasting BSG still elevated. Will adjust half/hold parameters on PM Lantus so that patient may receive more PM Lantus * Correctional insulin administered at HS and overnight insufficient to decrease BSG's. Will tighten. 05/25/16 * Patient received 5 units of Lantus last night, but BSG's still elevated to 227 mg/dL this AM. Will change parameters so patient is likely to receive more Lantus in the evenings * BSG's decreased steadily from 269 to 148 to 115 mg/dL yesterday after tightening correction factor. Lunch BSG today again 269 mg/dL - based on yesterday's trend may anticipate decrease tonight. No change to Novolog for now. 05/27/16 * BSGs ranging from 150-274mg/dL over the past 24 hours. Patient's BSG iza 72 points overnight without any correctional insulin. I will increase patient's Lantus. Also tighten CF slightly. Patient remains on PO Prednisone BID. I will also add an overnight accucheck to help with rise in BSG overnight from PM dose of Prednisone. PLAN FOR INPATIENT GLYCEMIC CONTROL: * Continue to hold outpatient oral diabetes medications * Lantus 20 units x 1 this AM then INCREASE to 15 units BID * Correctional Insulin with NOVOLOG per scale ACHS or Q6hrs while NPO & at 02: 00 * Goal Range: Low 120 mg/dL - High 150 mg/dL * CHANGE: Correction Factor: 18 mg/dL/unit * Nutritional / Prandial insulin per carb ratio of 1 unit per 6 grams CHO consumed * Please note that the plan above was derived based on current level of insulin resistance and hospital stress. These recommendations are appropriate for inpatient admission only. Plan of care upon discharge will need to be reassessed to avoid potential outpatient hypo/hyperglycemia. Thank you.
--- NOTE | 2016-05-27 16:19 | Progress Note ---
Internal Med Progress Note Date of Service: May 27, 2016. Provider Documentation: SUBJECTIVE: sitting on the chair comfortably tolerating diet says had severe belching earlier but ok now afebrile denies sob OBJECTIVE: Vital Signs-as noted below Exam: General-alert and oriented ENT-normal hearing Neck-no neck masses Lungs-cta b/l no wheezing or crackles Heart-s1 and s2 heard regular rate and rhythm no murmurs Abdomen-soft bowel sounds present non tender no distension Extremities-no erythema Neuro-alert and awake moves extremities Lab data as noted below. ASSESSMENT & PLAN: 80 yoF with significant heart history and valve issues admitted for increased work of breathing 2/2 CHF exacerbation. ACUTE HYPOXIC RESPIRATORY FAILURE, LIKELY MULTIFACTORIAL DUE TO ACUTE DIASTOLIC CHF AND/OR COPD EXACERBATION Presented with cough and SOB x 3 days; influenza outbreak at [place] [facility] however patient has been on prophylactic Tamilfu since 05/05 87% on room air on arrival, improved with oxygen 2L via NC Treated with steroids, Lasix and abx echo no change from previous cardiology on board Cardiology started on lower dose Losartan which was stopped secondary to arf and hyperkalemia requiring oxygen while sleeping on nocturna pulse ox study restarted Lasix 40mg daily. pt/ot nebs prn stable MITRAL VALVE ANOMALY echo-unchanged. cardiology on board stable CONSTIPATION KU fecal retention was on lactulose stopped lactulose secondary to abdominal gas currently on miralx had enema yesterday Belching mostly from hiatal hernia severe has this for some time high risk for surgery Worsening started on cipro for one week consulted ct surgery to reevaluate for any options plan for surgery on Sunday Hyperkalemia k 5.3 today losartan stopped had a dose of Kayexalate resolved Stable conditions: ATRIAL FIBRILLATION on amiodarone and metoprolol rate controlled Not anticoagulated due to hx of hemorrhagic pericardial effusion and subdural hematoma s/p fall SSS S/P PACER no acute issues HTN on clonidine, hydralazine, and metoprolol hydralazine dose increased will monitor DM hgb a1c 7.0 03/2016 oral agents on hold. SSI while hospitalized GERD, HIATAL HERNIA on PPI/H2 filipe HYPOTHYROIDISM on levothyroxine DEPRESSION on sertraline DVT PROPHYLAXIS SCDs due to hx of hemorrhagic pericardial effusion and subdural hematoma CODE STATUS DNR DISPO: pt/ot social service for d/c planning await surgery Vital Signs: Date Time Temp Pulse Resp B/P Pulse Ox O2 Delivery O2 Flow Rate FiO2 05/27/16 15:54 36.5 59 18 143/76 93 Room Air 05/27/16 14:27 62 148/79 05/27/16 12:26 66 146/73 92 Room Air 05/27/16 08:45 60 20 94 Room Air 05/27/16 08:10 36.4 84 20 146/68 93 05/27/16 08:00 Room Air 05/27/16 00:00 93 Room Air 05/26/16 20:48 60 137/75 05/26/16 16:59 93 Room Air Lab Results: Results Past 24 Hours Test 05/26/16 20:08 05/27/16 08:09 05/27/16 11:20 Range/Units Bedside Glucose 150 222 274 70-90 mg/dl
[2016-05-27] MEDS: INSULIN GLARGINE SOLOSTAR 100 UNITS/ML 3 ML PEN SC SCH (20:39)
[2016-05-27] MEDS: MONTELUKAST SOD 10 MG TAB PO SCH (20:40)
[2016-05-27] MEDS: MIRTAZAPINE TAB 15 MG TAB PO SCH (20:42)
[2016-05-27] MEDS: TRAMADOL HCL 50 MG TAB PO PRN (22:22)
[2016-05-28] VITALS (7 sets, daily range): BP systolic 150–189; BP diastolic 53–90; PULSE 58–67; TEMP 36.5–36.8; O2SAT 92–94
[2016-05-28] MEDS ORDERED: INSULIN ASPART 100 UNITS/ML 3 ML PEN SC SCH (02:00)
--- NOTE | 2016-05-28 07:09 | Surgery Progress Note ---
Subjective Date of Service: May 28, 2016. Pt. resting in bed. No CP or SOB. Objective Vitals Date Time Temp Pulse Resp B/P Pulse Ox O2 Delivery O2 Flow Rate FiO2 05/28/16 00:00 93 Room Air 05/27/16 20:50 60 165/75 05/27/16 16:29 66 20 93 Room Air 05/27/16 16:00 93 Room Air 05/27/16 15:54 36.5 59 18 143/76 93 Room Air 05/27/16 14:27 62 148/79 05/27/16 12:26 66 146/73 92 Room Air 05/27/16 08:45 60 20 94 Room Air 05/27/16 08:10 36.4 84 20 146/68 93 05/27/16 08:00 Room Air Physical Exam General: + well developed, + well nourished CV: + RRR Pulmonary: + lungs clear, No accessory muscle use, No respiratory distress Extremities: No calf tenderness Neurologic: + alert & oriented x 3 Assessment & Plan 80 year old female with hiatal hernia -surgical repair planned for 05/29/16 -pt. NPO after midnight tonight -appropriate orders placed for medicines; -discussed with Pharm D--they will handle insulin/DM medication adjustments -in am may administer lopressor, neurontin, amiodarone, synthroid, zoloft -will also give isordil if SBP >150 -in am will hold lasix, lipitor, hydralazine, clonidine and prednisone -pt. ay require IV stress dose steroids in OR by anesthesia -consent on chart
[2016-05-28] MEDS: FUROSEMIDE 40 MG TAB PO SCH (08:30)
[2016-05-28] MEDS: METOPROLOL TARTRATE 50 MG TAB PO SCH ×2 (08:30→20:22)
[2016-05-28] MEDS: SERTRALINE HCL 100 MG TAB PO SCH (08:30)
[2016-05-28] MEDS: LEVOTHYROXINE 50 MCG TAB PO SCH (08:30)
[2016-05-28] MEDS: GABAPENTIN 100 MG CAP PO SCH ×3 (08:31→20:21)
[2016-05-28] MEDS: DOCUSATE SODIUM/SENNA 50/8.6MG TAB PO SCH ×2 (08:31→20:18)
[2016-05-28] MEDS: RANITIDINE HCL 150 MG TAB PO SCH ×2 (08:31→20:17)
[2016-05-28] MEDS: ISOSORBIDE DINITRATE 20 MG TAB PO SCH ×3 (08:31→17:30)
[2016-05-28] MEDS: ATORVASTATIN 20 MG TAB PO SCH (08:32)
[2016-05-28] MEDS: FERROUS SULFATE 325 MG TAB PO SCH (08:32)
[2016-05-28] MEDS: GUAIFENESIN 600 MG TABCR PO SCH (08:32)
[2016-05-28] MEDS: CLONIDINE HCL 0.1 MG TAB PO SCH ×2 (08:32→20:14)
[2016-05-28] MEDS: PANTOprazole SOD 40 MG TAB PO SCH ×2 (08:32→20:18)
[2016-05-28] MEDS: POLYETHYLENE (MIRALAX) 17 GM PACK PO SCH (08:33)
[2016-05-28] MEDS: FLUTICASONE PROPIONATE NA SPR 16 GM BTL SCH (08:33)
[2016-05-28] MEDS: AMIODARONE 200 MG TAB PO SCH (08:33)
[2016-05-28] MEDS: INSULIN ASPART 100 UNITS/ML 3 ML PEN SC SCH ×4 (08:46→20:33)
[2016-05-28] MEDS: INSULIN GLARGINE SOLOSTAR 100 UNITS/ML 3 ML PEN SC SCH ×2 (08:47→20:32)
[2016-05-28] MEDS: ALBUT/IPRATROP 3MG/0.5MG NEB 3 ML VIAL INH PRN (08:59)
--- NOTE | 2016-05-28 09:59 | Pharmacy Progress Note ---
Glycemic Control: Progress Nt Date of Service May 28, 2016. Scope Glycemic Pharmacist consulted by Dr Hinton on 05/15/16 for glycemic control and to write orders per [facility] inpatient glycemic control protocol. Objective Accuchecks BSG (last 24hrs): Test 05/27/16 11:20 05/27/16 16:28 05/27/16 20:02 05/28/16 02:00 Bedside Glucose 274 mg/dl (70-90) 144 mg/dl (70-90) 164 mg/dl (70-90) 146 mg/dl (70-90) Test 05/28/16 07:30 Bedside Glucose 232 mg/dl (70-90) Recent Pertinent Medications Outpatient Anti-diabetic Regimen: * Glipizide ER 2.5 mg po daily * A1c = 7.0 % 03/2016 The patient is currently receiving: * Basal insulin: Lantus 15 units SC BID * Correctional Insulin: Novolog Correction per scale ACHS Goal Range: Low 120 mg/dL - High 150 mg/dL Correction Factor: 18 mg/dL/unit * Prandial insulin: Per carb ratio of 1 unit per 6 grams CHO consumed * Oral Agents: On hold Risk Factors for Insulin Resistance: * Steroids: Prednisone 20 mg po BID * Surgery: repair of diaphragmatic hernia planned for 05/29 * Diet: T2DM / low Na --> NPO at midnight tonight for surgery tomorrow Assessment & Plan ASSESSMENT: * ADA & AACE recommend a goal blood sugar range 140-180 mg/dl for the majority of critically ill & non-critically ill patients. However, more stringent targets may be selected in individual cases. 05/24/16 * Patient received additional Lantus last night, but AM fasting BSG still elevated. Will adjust half/hold parameters on PM Lantus so that patient may receive more PM Lantus * Correctional insulin administered at HS and overnight insufficient to decrease BSG's. Will tighten. 05/25/16 * Patient received 5 units of Lantus last night, but BSG's still elevated to 227 mg/dL this AM. Will change parameters so patient is likely to receive more Lantus in the evenings * BSG's decreased steadily from 269 to 148 to 115 mg/dL yesterday after tightening correction factor. Lunch BSG today again 269 mg/dL - based on yesterday's trend may anticipate decrease tonight. No change to Novolog for now. 05/27/16 * BSGs ranging from 150-274mg/dL over the past 24 hours. Patient's BSG iza 72 points overnight without any correctional insulin. I will increase patient's Lantus. Also tighten CF slightly. Patient remains on PO Prednisone BID. I will also add an overnight accucheck to help with rise in BSG overnight from PM dose of Prednisone. 05/28/16 * BSGs better with increase in Lantus and CF change. Will continue everything the same, but cut 0200 check, as patient didn't need insulin at that time this morning. * NPO tonight for diaphragmatic hernia surgery tomorrow, will place Lantus on hold for 05/29 AM PLAN FOR INPATIENT GLYCEMIC CONTROL: * Continue to hold outpatient oral diabetes medications * Lantus 15 units BID - hold AM dose 05/29 for surgery * Correctional Insulin with NOVOLOG per scale ACHS or Q6hrs while NPO * Goal Range: Low 120 mg/dL - High 150 mg/dL * Correction Factor: 18 mg/dL/unit * Nutritional / Prandial insulin per carb ratio of 1 unit per 6 grams CHO consumed * Please note that the plan above was derived based on current level of insulin resistance and hospital stress. These recommendations are appropriate for inpatient admission only. Plan of care upon discharge will need to be reassessed to avoid potential outpatient hypo/hyperglycemia. Thank you.
--- NOTE | 2016-05-28 11:20 | Cardiology Follow-Up ---
Subjective General Date of Service: May 28, 2016. Chief Complaint: SOB Pt evaluation today including: conversation w/ patient, physical exam, chart review, lab review, review of studies, review of inpatient medication list History of Present Illness The patient is a 80 year old female seen in follow up. Feeling well today. Tolerated AM meal. Plan for surgery tomorrow. Denies CP. SOB unchanged. No edema, orthopnea, or PND. Allergies Coded Allergies: Penicillins (Verified Allergy, Mild, rash, 05/13/16) Morphine (Verified Allergy, Unknown, UNKNOWN, 05/13/16) Codeine (Verified Adverse Reaction, Unknown, MAKES ME HIGH, 05/13/16) Social History Smoking Status: Never Smoker Hx Tobacco Use In Past Year?: No Hx Alcohol Use - Type And Amou: No Hx Substance Use - Type And Am: No Problem List Medical Problems: (1) Abdominal pain Status: Acute (2) Chest pain Status: Acute (3) CHF (congestive heart failure) Status: Acute (4) Chronic obstructive pulmonary disease Status: Acute (5) Constipation Status: Acute (6) Cough Status: Acute (7) Hypoxia Status: Acute (8) Left sided chest pain Status: Acute (9) Pneumonia Status: Acute (10) Shortness of breath Status: Acute (11) Symptomatic bradycardia Status: Acute (12) Traumatic intracranial hemorrhage Status: Acute Review of Systems Respiratory: No cough, No dyspnea at rest, No dyspnea on exertion, No hemoptysis, No shortness of breath, No sputum, No wheezing Cardiac: No PND, No chest pain, No edema, No orthopnea, No palpitations Physical Exam Vital Signs Last Vital Signs Documentation Date Time Temp Pulse Resp B/P Pulse Ox O2 Delivery O2 Flow Rate FiO2 05/28/16 10:21 64 160/72 05/28/16 08:59 20 92 Room Air 05/28/16 08:14 36.5 05/26/16 07:54 1.0 Physical Exam Constitutional: General Apperance: overweight Level of Distress: NAD, chronically ill Psychiatric: Mental Status: active & alert Orientation: to time, to place, to person Memory: recent memory normal Head: normocephalic, atraumatic Eyes: Pupils: PERRLA Neck: supple Lungs: Auscultation: no rales/crackles, deminished air movement, expiratory wheezing Cardiovascular: Heart Auscultation: RRR, normal S1, normal S2, II/ SAMANTHA Abdomen: Bowel Sounds: normal Inspection & Palpation: soft, no tenderness, guarding & rebound Extremities: no clubbing, edema (Plus 1 B/L pedal edema) Neurologic: Gait & Station: pertinent finding (No focal motor deficit) Cranial Nerves: grossly intact Assessment and Plan Assessment and Plan FINAL IMPRESSION: 1. Complex 80 y/o female considered moderate perioperative cardiovascular risk. 2. Chronic compensated diastolic heart failure. 3. 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 No evidence of infectious endocarditis, anticoagulation contraindicated. 4. Mild aortic stenosis with moderate regurgitation. 5. Sick sinus syndrome, status post pacemaker placement - telemetry demonstrating atrial paced rhythm. 6. Paroxysmal atrial fibrillation 9. Acute kidney injury superimposed on chronic kidney disease - creatinine trending upward 10. Dyspepsia, dyspnea secondary to large ventral hiatal hernia - thoracic surgery input appreciated. PLAN AND RECOMMENDATIONS: Repeat basic metabolic panel. Other cardiovascular medications including hydralazine, isosorbide dinitrate, furosemide, clonidine, amiodarone, and metoprolol will be continued as previously ordered. Restart ARB postoperatively if renal function stable. Laboratory Results Last 24 Hours Test 05/27/16 11:20 05/27/16 16:28 05/27/16 20:02 05/28/16 02:00 Bedside Glucose 274 mg/dl 144 mg/dl 164 mg/dl 146 mg/dl Test 05/28/16 07:30 Bedside Glucose 232 mg/dl
[2016-05-28 13:05] LABS: BUN/CREATININE RATIO 39.4 (10-20); CALCIUM 8.3 mg/dl (8.5-10.1); CREATININE 1.4 mg/dl (0.60-1.20); MAGNESIUM 2.6 mg/dl (1.8-2.4); POTASSIUM 4.7 mmol/L (3.5-5.1)
--- NOTE | 2016-05-28 16:39 | Progress Note ---
Internal Med Progress Note Date of Service: May 28, 2016. Provider Documentation: SUBJECTIVE: resting comfortably anxious about the surgery in am had some sob and received nebs no fevers has belching on and off OBJECTIVE: Vital Signs-as noted below Exam: General-alert and oriented ENT-normal hearing Neck-no neck masses Lungs-cta b/l no wheezing or crackles Heart-s1 and s2 heard regular rate and rhythm no murmurs Abdomen-soft bowel sounds present non tender no distension Extremities-no erythema Neuro-alert and awake moves extremities Lab data as noted below. ASSESSMENT & PLAN: 80 yoF with significant heart history and valve issues admitted for increased work of breathing 2/2 CHF exacerbation. ACUTE HYPOXIC RESPIRATORY FAILURE, LIKELY MULTIFACTORIAL DUE TO ACUTE DIASTOLIC CHF AND/OR COPD EXACERBATION Presented with cough and SOB x 3 days; influenza outbreak at assisted however patient has been on prophylactic Tamilfu since 05/05 87% on room air on arrival, improved with oxygen 2L via NC Treated with steroids, Lasix and abx echo no change from previous cardiology on board Cardiology started on lower dose Losartan which was stopped secondary to arf and hyperkalemia requiring oxygen while sleeping on nocturna pulse ox study restarted Lasix 40mg daily. pt/ot nebs prn currently stable will monitor MITRAL VALVE ANOMALY echo-unchanged. cardiology on board stable CONSTIPATION KU fecal retention was on lactulose stopped lactulose secondary to abdominal gas currently on miralx had enema Belching mostly from hiatal hernia severe has this for some time high risk for surgery Worsening started on cipro for one week consulted ct surgery to reevaluate for any options awaiting surgery in am Hyperkalemia k 5.3 losartan stopped had a dose of Kayexalate resolved ATRIAL FIBRILLATION on amiodarone and metoprolol rate controlled Not anticoagulated due to hx of hemorrhagic pericardial effusion and subdural hematoma s/p fall will monitor post op SSS S/P PACER no acute issues HTN on clonidine, hydralazine, and metoprolol hydralazine dose increased losartan stopped secondary to ARF and hyperkalemia will monitor ARF' baseline cr 1.2 to 1.3 cr 1.4 today will f/u labs. DM hgb a1c 7.0 03/2016 oral agents on hold. SSI while hospitalized GERD, HIATAL HERNIA on PPI/H2 filipe HYPOTHYROIDISM on levothyroxine DEPRESSION on sertraline DVT PROPHYLAXIS SCDs due to hx of hemorrhagic pericardial effusion and subdural hematoma CODE STATUS DNR DISPO: pt/ot social service for d/c planning await surgery Vital Signs: Date Time Temp Pulse Resp B/P Pulse Ox O2 Delivery O2 Flow Rate FiO2 05/28/16 15:56 36.8 58 18 150/53 94 Room Air 05/28/16 12:52 65 184/84 05/28/16 10:21 64 160/72 05/28/16 08:59 61 20 92 Room Air 05/28/16 08:14 36.5 61 18 189/90 93 Room Air 05/28/16 08:00 Room Air 05/28/16 00:00 93 Room Air 05/27/16 20:50 60 165/75 Lab Results: Results Past 24 Hours Test 05/27/16 20:02 05/28/16 02:00 05/28/16 07:30 05/28/16 11:36 Range/Units Bedside Glucose 164 146 232 227 70-90 mg/dl Test 05/28/16 12:25 Range/Units Sodium Level 141 136-145 mmol/L Potassium Level 4.7 3.5-5.1 mmol/L Chloride Level 102 98-107 mmol/L Carbon Dioxide Level 31 21-32 mmol/L Anion Gap 8.0 3-11 mmol/L Blood Urea Nitrogen 55 7-18 mg/dl Creatinine 1.40 0.60-1.20 mg/dl Est Creatinine Clear Calc Drug Dose 33.6 ml/min Estimated GFR () 40.7 Estimated GFR (Non- 35.1 BUN/Creatinine Ratio 39.4 10-20 Random Glucose 194 70-99 mg/dl Calcium Level 8.3 8.5-10.1 mg/dl Magnesium Level 2.6 1.8-2.4 mg/dl
--- NOTE | 2016-05-28 18:55 | Progress Note ---
Progress Note The patient is an 80 year old with multiple co-morbidities including, COPD, HTN , chronic diastolic CHF, a history of A-fib, sick sinus syndrome and a pacemaker. She has a large sliding hiatal hernia, DM II, CKD stage 3 and a history of a hemorrhagic pericardial effusion (resolved). She has a 0.6 cm mobile echodensity which is attached to the ventricular surface of the mitral valve (bacterial endocarditis ruled out by echo). She has a history of a subdural hematoma which is resolved. Her echocardiogram shows an EF of 60- 65%, no regional wall motion abnormalities, mild , moderate AR and the lesion on her mitral valve. Her exam shows an elderly woman sitting comfortably, on room air, eating her dinner. Her teeth are intact, she is a MP 2. Her heart is RRR with a II/ systolic murmur, non-radiating. Her lungs are diminished breath sounds without wheezing, crackles or rhochi. The certified corporate travel executive have assessed her as a moderate risk and as a go for her surgery tomorrow.
[2016-05-28] MEDS: MONTELUKAST SOD 10 MG TAB PO SCH (20:14)
[2016-05-28] MEDS: MIRTAZAPINE TAB 15 MG TAB PO SCH (20:22)
[2016-05-29] VITALS (9 sets, daily range): BP systolic 104–180; BP diastolic 50–79; PULSE 57–67; TEMP 36.6–36.8; O2SAT 91–94
[2016-05-29] MEDS: LEVOTHYROXINE 50 MCG TAB PO SCH (06:20)
[2016-05-29 06:43] LABS: BASO % 0.1 %; BASO ABS # 0.01 K/uL (0-0.2); COMPLETE YES; EOS % 0.1 %; HEMATOCRIT 42.4 % (37-47); IG% 1.4 %; LYMPH % 5.2 %; LYMPH ABS # 0.77 K/uL (1.2-3.4); MEAN CELL VOLUME 98.4 fL (80-100); MEAN CORPUSCULAR HEMOGLOBIN 31.6 pg (25-34); MEAN CORPUSCULAR HGB CONC 32.1 g/dl (32-36); MEAN PLATELET VOLUME 9.5 fL (7.4-10.4); MONO % 8.5 %; NEUT % 84.7 %; PLATELET COUNT 124 K/uL (130-400); RED BLOOD COUNT 4.31 M/uL (4.2-5.4); WHITE BLOOD COUNT 14.81 K/uL (4.8-10.8)
[2016-05-29 07:15] LABS: BUN/CREATININE RATIO 40.5 (10-20); CALCIUM 8.6 mg/dl (8.5-10.1); CREATININE 1.4 mg/dl (0.60-1.20); MAGNESIUM 2.8 mg/dl (1.8-2.4); POTASSIUM 4.5 mmol/L (3.5-5.1)
[2016-05-29] MEDS: FERROUS SULFATE 325 MG TAB PO SCH ×2 (07:53→11:53)
[2016-05-29] MEDS: CLONIDINE HCL 0.1 MG TAB PO SCH ×3 (07:53→20:00)
--- NOTE | 2016-05-29 07:53 | History & Physical Bridge Note ---
H&P Re-Evaluation Bridge Note: I have examined the patient, reviewed the History & Physical and in the interval since the performance of the History & Physical I have noted the following changes of clinical significance: No changes noted
[2016-05-29] MEDS: ATORVASTATIN 20 MG TAB PO SCH ×2 (07:54→11:53)
[2016-05-29] MEDS: FUROSEMIDE 40 MG TAB PO SCH ×2 (07:54→11:53)
[2016-05-29] MEDS: POLYETHYLENE (MIRALAX) 17 GM PACK PO SCH ×2 (07:55→11:50)
[2016-05-29] MEDS: GUAIFENESIN 600 MG TABCR PO SCH ×2 (07:55→11:53)
[2016-05-29] MEDS: DOCUSATE SODIUM/SENNA 50/8.6MG TAB PO SCH ×3 (07:56→21:01)
[2016-05-29] MEDS: RANITIDINE HCL 150 MG TAB PO SCH ×3 (07:56→21:01)
[2016-05-29] MEDS: PANTOprazole SOD 40 MG TAB PO SCH ×3 (07:56→21:01)
[2016-05-29] MEDS: SERTRALINE HCL 100 MG TAB PO SCH ×2 (07:57→11:54)
[2016-05-29] MEDS: ISOSORBIDE DINITRATE 20 MG TAB PO SCH ×3 (07:58→16:35)
[2016-05-29] MEDS: AMIODARONE 200 MG TAB PO SCH (07:58)
[2016-05-29] MEDS: FLUTICASONE PROPIONATE NA SPR 16 GM BTL SCH (07:59)
[2016-05-29] MEDS: GABAPENTIN 100 MG CAP PO SCH ×3 (07:59→21:01)
[2016-05-29] MEDS ORDERED: FENTANYL CITRATE INJ 50 MCG/1 ML 2 ML VIAL IV PRN (08:00)
[2016-05-29] MEDS ORDERED: EpHEDrine SULFATE INJ 50 MG/ML AMP IV PRN (08:00)
[2016-05-29] MEDS ORDERED: ATROPINE SULFATE 0.1 MG/ML 5ML SYR IV PRN (08:00)
[2016-05-29] MEDS ORDERED: ONDANSETRON INJ 2 MG/ML 2 ML VIAL IV PRN (08:00)
--- NOTE | 2016-05-29 08:04 | SURGERY PROGRESS NOTE ---
DATE: 05/29/2016 I had a long talk about the surgery. We are going to put her in the intensive care unit after the surgery. I marked her, we discussed risks and benefits. She is quite eager to have this procedure done.
[2016-05-29] MEDS ORDERED: INSULIN GLARGINE SOLOSTAR 100 UNITS/ML 3 ML PEN SC SCH (08:15)
[2016-05-29] MEDS: ALBUT/IPRATROP 3MG/0.5MG NEB 3 ML VIAL INH PRN ×3 (08:21→19:03)
[2016-05-29] MEDS: METOPROLOL TARTRATE 50 MG TAB PO SCH ×2 (08:48→20:00)
[2016-05-29] MEDS: INSULIN ASPART 100 UNITS/ML 3 ML PEN SC SCH ×4 (08:57→20:49)
--- NOTE | 2016-05-29 09:48 | Pharmacy Progress Note ---
Glycemic Control: Progress Nt Date of Service May 29, 2016. Scope Glycemic Pharmacist consulted by Dr Hinton on 05/29/16 for glycemic control and to write orders per [facility] inpatient glycemic control protocol. Objective Accuchecks BSG (last 24hrs): Test 05/28/16 11:36 05/28/16 12:25 05/28/16 16:29 05/28/16 17:49 Bedside Glucose 227 mg/dl (70-90) 79 mg/dl (70-90) 110 mg/dl (70-90) Random Glucose 194 mg/dl (70-99) Test 05/28/16 20:09 05/29/16 06:35 05/29/16 07:51 Bedside Glucose 218 mg/dl (70-90) 163 mg/dl (70-90) Random Glucose 195 mg/dl (70-99) Laboratory Data (last 24hrs) Test 05/28/16 12:25 05/29/16 06:35 Anion Gap 8.0 mmol/L 8.0 mmol/L BUN/Creatinine Ratio 39.4 40.5 Blood Urea Nitrogen 55 mg/dl 57 mg/dl Creatinine 1.40 mg/dl 1.40 mg/dl Potassium Level 4.7 mmol/L 4.5 mmol/L Sodium Level 141 mmol/L 141 mmol/L White Blood Count 14.81 K/uL Red Blood Count 4.31 M/uL Hemoglobin 13.6 g/dL Hematocrit 42.4 % Mean Corpuscular Volume 98.4 fL Mean Corpuscular Hemoglobin 31.6 pg Mean Corpuscular Hemoglobin Concent 32.1 g/dl Platelet Count 124 K/uL Mean Platelet Volume 9.5 fL Neutrophils (%) (Auto) 84.7 % Lymphocytes (%) (Auto) 5.2 % Monocytes (%) (Auto) 8.5 % Eosinophils (%) (Auto) 0.1 % Basophils (%) (Auto) 0.1 % Neutrophils # (Auto) 12.55 K/uL Lymphocytes # (Auto) 0.77 K/uL Monocytes # (Auto) 1.26 K/uL Eosinophils # (Auto) 0.02 K/uL Basophils # (Auto) 0.01 K/uL Recent Pertinent Medications Outpatient Anti-diabetic Regimen: * glipizide ER 2.5mg PO daily * A1c = 7% 03/2016 The patient is currently receiving: * Basal insulin: Lantus 15 units SQ BID * Correctional Insulin: NovoLog Correction per scale AC/HS Goal Range: Low 120 mg/dL - High 150 mg/dL Correction Factor: 25 mg/dL/unit * Prandial insulin: Per carb ratio of 1 unit per 8 grams CHO consumed Risk Factors for Insulin Resistance: * Steroids: Prednisone 20 mg po BID * Surgery: repair of diaphragmatic hernia planned for 05/29 * Diet: T2DM / low Na --> NPO for surgery this AM Assessment & Plan ASSESSMENT: * ADA & AACE recommend a goal blood sugar range 140-180 mg/dl for the majority of critically ill & non-critically ill patients. However, more stringent targets may be selected in individual cases. 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 * Outpatient control appropriate based on A1c * Currently, experiencing hyperglycemia secondary to BID prednisone * Patient has been difficult to manage. As insulin titrated up she had BSGs < 100 mg/dL, so we pulled back. Now BSGS are continuing to trend high. * Tighten NovoLog parameters slightly * Taper insulin doses at steroids decrease * Fasting BSG 163 mg/dL this AM but patient is NPO for surgery * Give 10 units instead of 15 units of Lantus this AM and continue current orders this evening PLAN FOR INPATIENT GLYCEMIC CONTROL: * Give 10 units of Lantus X 1 this AM versus the scheduled 15 units * Continue Lantus 15 units BID tonight * Give 10 units if BSG <120 mg/dL * NovoLog AC and HS * Change correction factor to 20 mg/dL/unit * Change carb ratio to 1 unit per 7 g of CHO consumed * Goal range 120-150mg/dL * A1c - current * added to discharge instructions RECOMMENDATIONS FOR DISCHARGE: * If no steroids at d/c - continue home glipizide. * Please note that the plan above was derived based on current level of insulin resistance and hospital stress. These recommendations are appropriate for inpatient admission only. Plan of care upon discharge will need to be reassessed to avoid potential outpatient hypo/hyperglycemia. Thank you.
[2016-05-29] MEDS: INSULIN GLARGINE SOLOSTAR 100 UNITS/ML 3 ML PEN SC SCH ×2 (14:38→20:49)
--- NOTE | 2016-05-29 17:47 | Progress Note ---
Internal Med Progress Note Date of Service: May 29, 2016. Provider Documentation: SUBJECTIVE: surgery was cancelled today and planned for tomorrow has belching no pain no sob had lunch OBJECTIVE: Vital Signs-as noted below Exam: General-alert and oriented ENT-normal hearing Neck-no neck masses Lungs-cta b/l no wheezing or crackles Heart-s1 and s2 heard regular rate and rhythm no murmurs Abdomen-soft bowel sounds present non tender no distension Extremities-no erythema Neuro-alert and awake moves extremities Lab data as noted below. ASSESSMENT & PLAN: 80 yoF with significant heart history and valve issues admitted for increased work of breathing 2/2 CHF exacerbation. ACUTE HYPOXIC RESPIRATORY FAILURE, LIKELY MULTIFACTORIAL DUE TO ACUTE DIASTOLIC CHF AND/OR COPD EXACERBATION Presented with cough and SOB x 3 days; influenza outbreak at skilled nursing however patient has been on prophylactic Tamilfu since 05/05 87% on room air on arrival, improved with oxygen 2L via NC Treated with steroids, Lasix and abx echo no change from previous cardiology on board Cardiology started on lower dose Losartan which was stopped secondary to arf and hyperkalemia requiring oxygen while sleeping on nocturna pulse ox study restarted Lasix 40mg daily. pt/ot nebs prn currently stable continue same will monitor MITRAL VALVE ANOMALY echo-unchanged. cardiology on board stable CONSTIPATION KU fecal retention was on lactulose stopped lactulose secondary to abdominal gas currently on miralx daily had enema Belching mostly from hiatal hernia severe has this for some time high risk for surgery Worsening started on cipro for one week consulted ct surgery to reevaluate for any options awaiting surgery in am Hyperkalemia k 5.3 losartan stopped had a dose of Kayexalate resolved ATRIAL FIBRILLATION on amiodarone and metoprolol rate controlled Not anticoagulated due to hx of hemorrhagic pericardial effusion and subdural hematoma s/p fall will monitor post op satble now SSS S/P PACER no acute issues HTN on clonidine, hydralazine, and metoprolol hydralazine dose increased losartan stopped secondary to ARF and hyperkalemia BP up and down will monitor ARF' baseline cr 1.2 to 1.3 cr 1.4 today will f/u labs. DM hgb a1c 7.0 03/2016 oral agents on hold. SSI while hospitalized will monitor GERD, HIATAL HERNIA on PPI/H2 filipe HYPOTHYROIDISM on levothyroxine DEPRESSION on sertraline DVT PROPHYLAXIS SCDs due to hx of hemorrhagic pericardial effusion and subdural hematoma CODE STATUS DNR DISPO: pt/ot social service for d/c planning await surgery Vital Signs: Date Time Temp Pulse Resp B/P Pulse Ox O2 Delivery O2 Flow Rate FiO2 05/29/16 16:14 36.7 62 20 126/74 91 Room Air 05/29/16 15:21 61 16 93 Room Air 05/29/16 11:40 63 118/79 05/29/16 10:48 36.6 67 18 180/70 93 Room Air 05/29/16 08:21 66 20 92 Room Air 05/29/16 07:59 36.8 57 20 174/50 93 Room Air 05/29/16 07:40 Room Air 05/29/16 00:00 92 Room Air 05/28/16 20:33 36.8 67 20 164/77 93 Room Air Lab Results: Results Past 24 Hours Test 05/28/16 17:49 05/28/16 20:09 05/29/16 06:35 05/29/16 07:51 Range/Units Bedside Glucose 110 218 163 70-90 mg/dl White Blood Count 14.81 4.8-10.8 K/uL Red Blood Count 4.31 4.2-5.4 M/uL Hemoglobin 13.6 12.0-16.0 g/dL Hematocrit 42.4 37-47 % Mean Corpuscular Volume 98.4 80-100 fL Mean Corpuscular Hemoglobin 31.6 25-34 pg Mean Corpuscular Hemoglobin Concent 32.1 32-36 g/dl Platelet Count 124 130-400 K/uL Mean Platelet Volume 9.5 7.4-10.4 fL Neutrophils (%) (Auto) 84.7 % Lymphocytes (%) (Auto) 5.2 % Monocytes (%) (Auto) 8.5 % Eosinophils (%) (Auto) 0.1 % Basophils (%) (Auto) 0.1 % Neutrophils # (Auto) 12.55 1.4-6.5 K/uL Lymphocytes # (Auto) 0.77 1.2-3.4 K/uL Monocytes # (Auto) 1.26 0.11-0.59 K/uL Eosinophils # (Auto) 0.02 0-0.5 K/uL Basophils # (Auto) 0.01 0-0.2 K/uL RDW Standard Deviation 59.2 36.4-46.3 fL RDW Coefficient of Variation 16.5 11.5-14.5 % Immature Granulocyte % (Auto) 1.4 % Immature Granulocyte # (Auto) 0.20 0.00-0.02 K/uL Sodium Level 141 136-145 mmol/L Potassium Level 4.5 3.5-5.1 mmol/L Chloride Level 103 98-107 mmol/L Carbon Dioxide Level 30 21-32 mmol/L Anion Gap 8.0 3-11 mmol/L Blood Urea Nitrogen 57 7-18 mg/dl Creatinine 1.40 0.60-1.20 mg/dl Est Creatinine Clear Calc Drug Dose 33.8 ml/min Estimated GFR () 40.7 Estimated GFR (Non- 35.1 BUN/Creatinine Ratio 40.5 10-20 Random Glucose 195 70-99 mg/dl Calcium Level 8.6 8.5-10.1 mg/dl Magnesium Level 2.8 1.8-2.4 mg/dl Test 05/29/16 11:32 05/29/16 16:21 05/29/16 17:06 Range/Units Bedside Glucose 175 67 99 70-90 mg/dl
[2016-05-29] MEDS: TRAMADOL HCL 50 MG TAB PO PRN (19:41)
[2016-05-29] MEDS: MIRTAZAPINE TAB 15 MG TAB PO SCH (21:01)
[2016-05-29] MEDS: MONTELUKAST SOD 10 MG TAB PO SCH (21:01)
[2016-05-30] VITALS (16 sets, daily range): BP systolic 100–196; BP diastolic 38–107; PULSE 60–89; TEMP 36.4–36.9; O2SAT 90–100; Ht 157.5 cm; Wt 98.0 kg
[2016-05-30] MEDS ORDERED: NURSING VERBAL MED ORDER ONE (01:45)
[2016-05-30] MEDS: ISOSORBIDE DINITRATE 20 MG TAB PO SCH ×3 (06:17→17:00)
[2016-05-30] MEDS: LEVOTHYROXINE 50 MCG TAB PO SCH (06:18)
[2016-05-30] MEDS: INSULIN ASPART 100 UNITS/ML 3 ML PEN SC SCH ×3 (06:19→20:07)
[2016-05-30 07:14] LABS: BASO % 0.1 %; BASO ABS # 0.01 K/uL (0-0.2); COMPLETE YES; EOS % 0.1 %; HEMATOCRIT 40.7 % (37-47); IG% 1.1 %; LYMPH % 4.1 %; MEAN CELL VOLUME 98.5 fL (80-100); MEAN CORPUSCULAR HEMOGLOBIN 30.5 pg (25-34); MEAN PLATELET VOLUME 9.7 fL (7.4-10.4); MONO % 7.3 %; NEUT % 87.3 %; PLATELET COUNT 118 K/uL (130-400); RED BLOOD COUNT 4.13 M/uL (4.2-5.4); WHITE BLOOD COUNT 12.11 K/uL (4.8-10.8)
[2016-05-30 07:39] LABS: CALCIUM 8.3 mg/dl (8.5-10.1); CREATININE 1.5 mg/dl (0.60-1.20); MAGNESIUM 2.7 mg/dl (1.8-2.4); POTASSIUM 4.4 mmol/L (3.5-5.1)
[2016-05-30] MEDS: RANITIDINE HCL 150 MG TAB PO SCH (08:00)
[2016-05-30] MEDS: FERROUS SULFATE 325 MG TAB PO SCH (08:00)
[2016-05-30] MEDS: PANTOprazole SOD 40 MG TAB PO SCH (08:00)
[2016-05-30] MEDS: CLONIDINE HCL 0.1 MG TAB PO SCH (08:00)
[2016-05-30] MEDS: GUAIFENESIN 600 MG TABCR PO SCH (08:00)
[2016-05-30] MEDS ORDERED: INSULIN GLARGINE SOLOSTAR 100 UNITS/ML 3 ML PEN SC SCH ×3 (08:00→21:00)
[2016-05-30] MEDS: FUROSEMIDE 40 MG TAB PO SCH (08:00)
[2016-05-30] MEDS: DOCUSATE SODIUM/SENNA 50/8.6MG TAB PO SCH (08:00)
[2016-05-30] MEDS: ATORVASTATIN 20 MG TAB PO SCH (08:00)
[2016-05-30] MEDS: POLYETHYLENE (MIRALAX) 17 GM PACK PO SCH (08:00)
[2016-05-30] MEDS: FLUTICASONE PROPIONATE NA SPR 16 GM BTL SCH (08:24)
[2016-05-30] MEDS: GABAPENTIN 100 MG CAP PO SCH ×2 (08:26→14:00)
[2016-05-30] MEDS: AMIODARONE 200 MG TAB PO SCH (08:26)
[2016-05-30] MEDS: METOPROLOL TARTRATE 50 MG TAB PO SCH (08:27)
--- NOTE | 2016-05-30 09:05 | SURGERY PROGRESS NOTE ---
DATE: 05/30/2016 DATE: 05/30/2016. Ms. Robledo was seen this morning on 05/30/2016. She is scheduled for a Belsey - Jose IV hiatal hernia repair through a left thoracotomy today. She is stable. She states she had the best sleep she has had since she got here. I marked her left chest. She will be ready for surgery later this afternoon. NORMA
[2016-05-30] MEDS: SERTRALINE HCL 100 MG TAB PO SCH (09:51)
[2016-05-30] MEDS ORDERED: FENTANYL CITRATE INJ 50 MCG/1 ML 2 ML VIAL ONE ×5 (10:06→17:14)
[2016-05-30] MEDS ORDERED: NEOSTIGMINE METHYLSULFATE 5 MG/5 ML SYR ONE (13:44)
[2016-05-30] MEDS ORDERED: HYDROCORTISONE SOD SUCCINATE 100 MG/2 ML VIAL ONE (13:44)
[2016-05-30] MEDS ORDERED: ONDANSETRON INJ 2 MG/ML 2 ML VIAL ONE (13:44)
[2016-05-30] MEDS ORDERED: CISATRACURIUM BESYLATE IV SOLN 2 MG/ML 10 ML VIAL ONE (13:44)
[2016-05-30] MEDS ORDERED: DEXAMETHASONE SOD INJ 4 MG/ML VIAL ONE (13:44)
[2016-05-30] MEDS ORDERED: GLYCOPYRROLATE INJ 0.2 MG/ML VIAL ONE ×2 (13:44→15:49)
[2016-05-30] MEDS ORDERED: LIDOCAINE HCL 2% 2 ML VIAL (20MG/ML) ONE (13:44)
[2016-05-30] MEDS ORDERED: PROPOFOL IV EMULSION 10 MG/ML 20 ML VIAL IV ONE ×2 (13:44→15:49)
[2016-05-30] MEDS ORDERED: MIX: 266 MG EXPAREL + 40 ML INJ SALINE INJ ONE (13:59)
[2016-05-30] MEDS ORDERED: NovoLIN-R INSULIN PER UNIT CHARGE ONE (14:57)
[2016-05-30] MEDS ORDERED: AMIODARONE IV BOLUS / DRIP IV STA (16:42)
[2016-05-30] MEDS ORDERED: ONDANSETRON INJ 2 MG/ML 2 ML VIAL IV PRN (16:45)
--- NOTE | 2016-05-30 17:25 | DIAGNOSTIC IMAGING REPORT ---
SINGLE VIEW CHEST CLINICAL HISTORY: Status post thoracotomy. FINDINGS: An AP, portable, upright chest radiograph is compared to study dated 05/18/2016 and correlated with chest CT dated 05/23/2016. The examination is degraded by portable technique and patient rotation. An enteric tube projects below the diaphragm over the stomach. A chest tube is noted at the left lung base. A 2-lead cardiac pacemaker is unchanged in position. The heart is enlarged and there is atherosclerotic calcification of the thoracic aorta. The pulmonary vasculature is noncongested. Enlargement of the central pulmonary arteries is similar to previous and consistent with pulmonary artery hypertension. There is no large pleural effusion. Bibasilar airspace opacities are noted. There is a small left apical pneumothorax. No right-sided pneumothorax is seen. The skeletal structures are osteopenic. The bony thorax is grossly intact. Subcutaneous emphysema is noted in the left lower chest wall. IMPRESSION: 1. A chest tube is present at the left lung base. There is a small left apical pneumothorax. 2. An enteric tube has been placed. The tip projects below the diaphragm. 3. Cardiomegaly and cardiac pacemaker. There is no radiographic evidence of congestive failure. 4. Bibasilar airspace opacities likely represent atelectasis. Clinical correlation will be required. Electronically signed by: Hayes Pena M.D. 05/30/2016 5:24 PM Dictated Date/Time: 05/30/2016 5:20 PM
--- NOTE | 2016-05-30 17:45 | Anesthesiology Progress Note ---
Anesthesia Post Op Note Date & Time May 30, 2016 at 17:44 Vital Signs Pain Intensity: 0.0 Vital Signs Past 12 Hours Date Time Temp Pulse Resp B/P Pulse Ox O2 Delivery O2 Flow Rate FiO2 05/30/16 17:30 60 19 138/88 96 Nasal Cannula 4 05/30/16 17:20 61 19 138/88 100 Mask 10 05/30/16 17:10 62 16 106/91 100 Mask 10 05/30/16 17:04 36.0 60 20 133/116 100 Mask 10 05/30/16 12:05 36.7 89 22 187/82 90 Room Air 05/30/16 08:00 Room Air 05/30/16 07:40 36.9 61 14 196/101 93 Room Air 61 05/30/16 06:16 60 153/66 Notes Mental Status: alert / awake / arousable, participated in evaluation Pt Amnestic to Procedure: Yes Nausea / Vomiting: adequately controlled Pain: adequately controlled Airway Patency, RR, SpO2: stable & adequate BP & HR: stable & adequate Hydration State: stable & adequate Anesthetic Complications: no major complications apparent Pt doing well. Pt complaining of shoulder pain initially but now much improved.
[2016-05-30] MEDS: HydrALAZINE HCL 20 MG/ML VIAL IV. PRN (18:22)
[2016-05-30] MEDS ORDERED: NURSING VERBAL MED ORDER STA (18:25)
[2016-05-30] MEDS: AMIODARONE / D5W 200 ML IV SCH (18:29)
[2016-05-30] MEDS: SODIUM CHLORIDE 0.9% 1000ML 1,000 ML IV SCH (18:40)
--- NOTE | 2016-05-30 18:41 | Progress Note ---
Internal Med Progress Note Date of Service: May 30, 2016. Provider Documentation: SUBJECTIVE: s/p surgery today for hiatal hernia afebrile has pain vitals stable OBJECTIVE: Vital Signs-as noted below Exam: General-alert and awake. seems in pain ENT-normal hearing Neck-no neck masses Lungs-cta b/l no wheezing or crackles /p left sided chest tube Heart-s1 and s2 heard regular rate and rhythm no murmurs Abdomen-soft bowel sounds sluggish non tender no distension Extremities-no erythema Neuro-alert and awake moves extremities Lab data as noted below. ASSESSMENT & PLAN: 80 yoF with significant heart history and valve issues admitted for increased work of breathing 2/2 CHF exacerbation. Belching mostly from hiatal hernia severe has this for some time high risk for surgery Worsening consulted ct surgery to reevaluate for any options s/p surgery today 05/30/16 close monitor in ICU. Hospital course so far: Intial presentation with ACUTE HYPOXIC RESPIRATORY FAILURE, LIKELY MULTIFACTORIAL DUE TO ACUTE DIASTOLIC CHF AND/OR COPD EXACERBATION Presented with cough and SOB x 3 days; influenza outbreak at snf however patient has been on prophylactic Tamilfu since 05/05 87% on room air on arrival, improved with oxygen 2L via NC Treated with steroids, Lasix and abx echo no change from previous cardiology on board Cardiology started on lower dose Losartan which was stopped secondary to arf and hyperkalemia requiring oxygen while sleeping on nocturna pulse ox study restarted Lasix 40mg daily. pt/ot nebs prn currently stable will monitor MITRAL VALVE ANOMALY echo-unchanged. cardiology on board stable CONSTIPATION KU fecal retention was on lactulose stopped lactulose secondary to abdominal gas currently on miralx daily had enema currently s/p surgery Hyperkalemia k 5.3 losartan stopped had a dose of Kayexalate resolved ATRIAL FIBRILLATION on amiodarone and metoprolol rate controlled Not anticoagulated due to hx of hemorrhagic pericardial effusion and subdural hematoma s/p fall will monitor post op currently on amiodarone drip SSS S/P PACER no acute issues HTN on clonidine, hydralazine, and metoprolol hydralazine dose increased losartan stopped secondary to ARF and hyperkalemia BP up and down iv hydralazine prn will monitor ARF' baseline cr 1.2 to 1.3 cr 1.5 today will f/u labs. DM hgb a1c 7.0 03/2016 oral agents on hold. SSI while hospitalized will monitor GERD, HIATAL HERNIA on PPI/H2 filipe HYPOTHYROIDISM on levothyroxine DEPRESSION on sertraline DVT PROPHYLAXIS SCDs due to hx of hemorrhagic pericardial effusion and subdural hematoma CODE STATUS DNR DISPO: close monitor in ICU Vital Signs: Date Time Temp Pulse Resp B/P Pulse Ox O2 Delivery O2 Flow Rate FiO2 05/30/16 17:40 36.4 60 19 165/66 96 Nasal Cannula 4 05/30/16 17:30 60 19 138/88 96 Nasal Cannula 4 05/30/16 17:20 61 19 138/88 100 Mask 10 05/30/16 17:10 62 16 106/91 100 Mask 10 05/30/16 17:04 36.0 60 20 133/116 100 Mask 10 05/30/16 12:05 36.7 89 22 187/82 90 Room Air 05/30/16 08:00 Room Air 05/30/16 07:40 36.9 61 14 196/101 93 Room Air 61 05/30/16 06:16 60 153/66 05/30/16 00:08 36.5 71 18 137/72 93 Room Air 05/29/16 20:53 61 104/64 05/29/16 19:30 Room Air 05/29/16 19:03 63 16 94 Room Air Lab Results: Results Past 24 Hours Test 05/29/16 19:52 05/30/16 06:12 05/30/16 06:55 05/30/16 07:32 Range/Units Bedside Glucose 186 220 223 70-90 mg/dl White Blood Count 12.11 4.8-10.8 K/uL Red Blood Count 4.13 4.2-5.4 M/uL Hemoglobin 12.6 12.0-16.0 g/dL Hematocrit 40.7 37-47 % Mean Corpuscular Volume 98.5 80-100 fL Mean Corpuscular Hemoglobin 30.5 25-34 pg Mean Corpuscular Hemoglobin Concent 31.0 32-36 g/dl Platelet Count 118 130-400 K/uL Mean Platelet Volume 9.7 7.4-10.4 fL Neutrophils (%) (Auto) 87.3 % Lymphocytes (%) (Auto) 4.1 % Monocytes (%) (Auto) 7.3 % Eosinophils (%) (Auto) 0.1 % Basophils (%) (Auto) 0.1 % Neutrophils # (Auto) 10.58 1.4-6.5 K/uL Lymphocytes # (Auto) 0.50 1.2-3.4 K/uL Monocytes # (Auto) 0.88 0.11-0.59 K/uL Eosinophils # (Auto) 0.01 0-0.5 K/uL Basophils # (Auto) 0.01 0-0.2 K/uL RDW Standard Deviation 60.2 36.4-46.3 fL RDW Coefficient of Variation 16.9 11.5-14.5 % Immature Granulocyte % (Auto) 1.1 % Immature Granulocyte # (Auto) 0.13 0.00-0.02 K/uL Sodium Level 143 136-145 mmol/L Potassium Level 4.4 3.5-5.1 mmol/L Chloride Level 104 98-107 mmol/L Carbon Dioxide Level 31 21-32 mmol/L Anion Gap 8.0 3-11 mmol/L Blood Urea Nitrogen 59 7-18 mg/dl Creatinine 1.50 0.60-1.20 mg/dl Est Creatinine Clear Calc Drug Dose 31.1 ml/min Estimated GFR () 37.5 Estimated GFR (Non- 32.3 BUN/Creatinine Ratio 39.0 10-20 Random Glucose 254 70-99 mg/dl Calcium Level 8.3 8.5-10.1 mg/dl Magnesium Level 2.7 1.8-2.4 mg/dl Test 05/30/16 11:30 05/30/16 12:07 05/30/16 14:53 05/30/16 15:31 Range/Units Bedside Glucose 198 218 258 229 70-90 mg/dl Test 05/30/16 17:11 Range/Units Bedside Glucose 175 70-90 mg/dl Microbiology Results 05/30/16 MRSA DNA Surveillance Screen, Jay Batch Pending
[2016-05-30] MEDS ORDERED: KETAMINE HCL IV STA (18:47)
[2016-05-30] MEDS: METOPROLOL TARTRATE 1 MG/ML VIAL IV. SCH (19:07)
[2016-05-30] MEDS: CLINDAMYCIN IV 900 MG in DEXTROSE 5% ADD-VANTAGE 100ML 100 ML IV SCH (19:40)
--- NOTE | 2016-05-30 20:48 | OPERATIVE REPORT ---
DATE OF OPERATION: 05/30/2016 PREOPERATIVE DIAGNOSES: 1. Recurrent markedly symptomatic hiatal hernia status post Carol fundoplication. 2. Incisional hernia. 3. Multiple comorbidities. POSTOPERATIVE DIAGNOSES: Same. PROCEDURE: Left thoracotomy with Belsey Tosin IV repair. SURGEON: Dr. Rosas. CORPORATE TUTOR: YASMEEN Leon and Tosin Odom, medical office assistant. ANESTHESIA: General anesthesia endotracheal intubation. INDICATION FOR PROCEDURE AND FINDINGS: Cyndee Robledo is a very nice 80-year-old female who is miserable. She has a markedly symptomatic hiatal hernia and states that she would rather than continue this. I felt that Mrs. Robledo would be too high a risk patient to do from an abdominal approach as she already had an incisional hernia and had an open repair. I felt that a Belsey Tosin IV could be offered; however, I stated to her multiple times that she is 80 years old and that this would be a fairly risky procedure. She did not feel that she could go on like this and she told me multiple times that she would "rather on the table" than continue living like she is living. For this reason we scheduled her and today took her for a belsey tosin for repair. Upon performing the thoracotomy she had some adhesions that were taken down. She had a large hernia and upon taking this down it appeared that she had some shortening of the esophagus. I freed the esophagus all the way up to the aortic arch and then was able to perform the crural repair and then do the Belsey Tosin IV although with under a bit more tension. I was happy with it at the conclusion. There was no evidence of a leak at the conclusion. She tolerated it well and was extubated in the room. DESCRIPTION OF PROCEDURE: The patient brought to the operating room and laid in supine position. General anesthesia induced and endotracheal intubation was performed. After placing the patient in right lateral decubitus position and her left chest was prepped and draped in the usual sterile fashion. Six interspace thoracotomy incision was made after appropriate timeout had been called and antibiotics had been given. Upon taking this there were some adhesions noted between the lung and the chest wall and the lung and pericardium as well as the hiatal hernia. I meticulously took these down and retracted the lung upward. I took down the inferior pulmonary ligament till we got up to the pulmonary veins. I then freed up the esophagus a few more centimeters on either side and was able to get around it with a 1-inch [place]. Upon retracting this up there was a tremendous amount of inflammation here. I entered the sac and then excised this entire sac and came upon the stomach, freed this all the way up back to the hiatus and I excised the sac using a Harmonic scalpel and removed this in its entirety. The crural was markedly patulant and I actually placed 4 sutures in this, but I tied 2 of them just to keep the abdominal contents out. This came together in no tension. I left the other 2 sutures untied. We went back up and I then took the wrap down meticulously. There are a few muscularis tears in the esophagus; however, we were able to get down to the GE junction quite nicely actually. I could see the esophagus would be a bit short, so then I went back up with the Harmonic scalpel and meticulously took down esophageal attachments all the way up to the aortic arch. This provided enough length for us to effect this repair. Three separate 2-0 silk sutures were placed 240 degrees apart in total. Starting medially, I placed a suture through the stomach about 2 cm from the esophageal junction and then placed a mattress suture going first into the esophagus and then out and then coming back down and then coming back to the stomach. I did this 120 degrees apart, did it more laterally and then more posteriorly. I then tied these 3 sutures under no tension. I again did the same thing except this time I went into the diaphragm using a spoon to make sure we did not get into any problems with inadvertent sticks and placed again a suture through the diaphragm and then out and through the stomach and then through the esophagus. I did this again with 3 separate sutures 120 degrees apart. I placed an umbilical tie around the esophagus and then brought it out as a separate stab wound through the diaphragm and used this to reduce the stomach and pull it so I could bring these 3 sutures together and tie them. It was under some tension; however, I simply did not feel that a Calot's gastroplasty would be better. After deliberating about this, I decided to go ahead and close. I did get 3 pared down to the diaphragm. The last 2 sutures were tied and the crura and I was able to get the tip of my finger into the hiatus. Quite happy with the repair at the end, but did insufflate air after I had filled the chest with saline through the NG tube and saw no evidence of any leaking. 266 mg of Exparel were used to do an intercostal block from the 2nd to the 11th rib and this was done in 60 mL total fluid. I did not break any ribs. Three separate pericostal sutures were used to reapproximate the ribs after I placed a 28-Welsh right angle chest tube down along the diaphragm, but not touching the repair. This was sutured in place with heavy silk suture. 0 Vicryl was used to reapproximate the latissimus muscle, 4-0 Monocryl was used in a running subcuticular fashion to approximate the wound edges. She tolerated it well and was extubated in the room. I attest to the content of the Intraoperative Record and any orders documented therein. Any exceptio ns are noted below.
[2016-05-30] MEDS ORDERED: INSULIN ASPART 100 UNITS/ML 3 ML PEN SC SCH (21:00)
--- NOTE | 2016-05-30 21:18 | Critical Care Consultation ---
Critical Care Consultation Date of Consultation: May 30, 2016. 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 She was been treated for acute hypoxic resp failure secondary to COPD +/- CHF exacerbation , HTN . she has a h/o GERD with a hiatal hernia and had uncontrolled belching for which she was scheduled for a laparoscopic hernia repiar by thorasi surgery She was admitted to the ICU after a laparoscopic hiatal hernia surgery today. complains of pain and received ketamine Past Medical/Surgical History PAST MEDICAL HISTORY: 1. Obesity. 2. History of paraesophageal hernia with repair in the past. 3. Atrial fibrillation. 4. Chronic obstructive pulmonary disease. 5. Chronic renal insufficiency. 6. Depression. 7. Diabetes mellitus. 8. Dyslipidemia. 9. Hypertension. 10. Hypothyroidism. 11. Subdural hematoma in the past. PAST SURGICAL HISTORY: 1. Status post appendectomy. 2. Status post tonsillectomy and adenoidectomy. 3. Status post cholecystectomy. 4. Status post total abdominal hysterectomy. 5. Multiple colonoscopies and upper endoscopies Family History Diabetes mellitus FH: cancer MOTHER (Breast and Bladder ) FH: heart disease MOTHER FHx: lung disease MOTHER Hypertension MOTHER Social History Smoking Status: Never Smoker Alcohol Use: none Housing Status: shelter Allergies Coded Allergies: Penicillins (Verified Allergy, Mild, rash, 05/13/16) Morphine (Verified Allergy, Unknown, UNKNOWN, 05/13/16) Codeine (Verified Adverse Reaction, Unknown, MAKES ME HIGH, 05/13/16) Home Medications Scheduled Dvmiy-G-Fwzqsvwrqwokx (Beano), 2 TABS PO TIDM Amiodarone Hcl (Cordarone), 200 MG PO DAILY Atorvastatin (Lipitor), 20 MG PO DAILY Clonidine Hcl (Catapres), 0.1 MG PO BID Cromolyn Sodium 4% Oph (Opticrom Oph), 1 DROP OPB DAILY Ferrous Sulfate (Kp Ferrous Sulfate), 325 MG PO DAILY Fluticasone Furoate-Vilanterol (Breo Ellipta), 1 PUFF INH DAILY Fluticasone Propionate (Nasal) (Flonase Allergy Relief), 2 SPRAYS NA DAILY Furosemide (Lasix), 40 MG PO BID Gabapentin (Neurontin), 100 MG PO TID Glipizide (Glipizide Er), 1 TAB PO DAILY Guaifenesin Ext Rel (Mucinex Ext Rel), 600 MG PO DAILY Hydralazine Hcl (Apresoline), 25 MG PO TID Lactulose (Chronulac), 15 ML PO DAILY Levocetirizine Dihydrochloride (Xyzal), 5 MG PO QPM Levothyroxine Sodium (Synthroid), 1 TAB PO DAILY Metoprolol Tartrate (Lopressor) (Lopressor), 50 MG PO BID Mirtazapine (Mirtazapine), 15 MG PO HS Montelukast Sodium (Singulair), 10 MG PO DAILY Omeprazole (Prilosec), 40 MG PO BID Oseltamivir Phosphate (Tamiflu), 75 MG PO DAILY Pantoprazole Sodium (Protonix), 40 MG PO DAILY Ranitidine Hcl (Zantac 150 Maximum Streng), 1 TAB PO BID Sennosides-Docusate Sodium (Sennalax-S), 2 TABS PO BID Sertraline Hcl (Zoloft), 100 MG PO DAILY Tiotropium [place] (Spiriva Handihaler), 1 CAP INH DAILY [Ssd/Nystatin/Desitin], 1 APPLN TOP PRN Scheduled PRN Acetaminophen Tab (Tylenol), 650 MG PO Q6H PRN for ELBOW & LEG PAIN Albuterol (Proair Hfa), 2 PUFFS INH Q4H PRN for SOB/Wheezing Benzonatate (Tessalon Perles), 100 MG PO Q6H PRN for Cough Bisacodyl (Bisac-Evac), 10 MG RE for Constipation Guaifenesin Ext Rel (Mucinex Ext Rel), 600 MG PO Q12 PRN for Hydrocortisone Acetate (Rectal (Anucort-Hc), 25 MG PO DAILY PRN for Hemorrhoids Ipratropium-Albuterol (Duoneb), 1 TREATMENT INH QID PRN for SOB/Wheezing Magnesium Hydroxide (Milk Of Magnesia), 30 ML PO DAILY PRN for Constipation Nitroglycerin (Nitrostat), 0.4 MG SL UD PRN for Chest Pain Nystatin (Topical) (Nystatin), 1 APPLN TOP BID PRN for irritation Polyethylene Glycol 3350 (Bulk (Polyethylene Glycol 3350), 17 GM PO DAILY PRN for Constipation Simethicone (Simethicone), 125 MG PO BID PRN for Gas or Constipation Tramadol (Ultram), 50 MG PO Q6H PRN for Pain Current Inpatient Medications Current Inpatient Medications Medications (Trade) Dose Ordered Sig/Srinivas Route Start Time Stop Time Status Last Admin Dose Admin Acetaminophen (Tylenol Tab) 650 mg Q4H PRN PO 05/13/16 18:30 06/12/16 18:29 Future Hold 05/27/16 12:30 650 MG Prednisone (PredniSONE TAB) 20 mg BID PO 05/13/16 21:00 06/12/16 20:59 Future Hold 05/30/16 09:51 20 MG Amiodarone HCl (Cordarone Tab) 200 mg DAILY PO 05/14/16 09:00 06/13/16 08:59 Future Hold 05/30/16 08:26 200 MG Atorvastatin Calcium (Lipitor Tab) 20 mg DAILY PO 05/14/16 09:00 06/13/16 08:59 Future Hold 05/29/16 11:53 20 MG Clonidine HCl (Catapres Tab) 0.1 mg BID PO 05/13/16 21:00 06/12/16 20:59 Future Hold 05/29/16 11:53 0.1 MG Fluticasone Propionate (Flonase Nasal [place]) 2 sprays DAILY NA 05/14/16 09:00 06/13/16 08:59 05/30/16 08:24 2 SPRAYS Gabapentin (Neurontin Cap) 100 mg TID PO 05/13/16 21:00 06/12/16 20:59 Future Hold 05/30/16 08:26 100 MG Guaifenesin (Mucinex Contr Rel Tab) 600 mg DAILY PO 05/14/16 09:00 06/13/16 08:59 Future Hold 05/29/16 11:53 600 MG Levothyroxine Sodium (Synthroid Tab) 50 mcg DAILYBB PO 05/14/16 06:00 06/13/16 05:59 Future Hold 05/30/16 06:18 50 MCG Mirtazapine (Remeron Tab) 15 mg HS PO 05/13/16 21:00 06/12/16 20:59 Future Hold 05/29/16 21:01 15 MG Montelukast Sodium (Singulair Tab) 10 mg HS PO 05/14/16 21:00 06/13/16 20:59 Future Hold 05/29/16 21:01 10 MG Ranitidine HCl (zANTac TAB) 150 mg BID PO 05/13/16 21:00 06/12/16 20:59 Future Hold 05/29/16 21:01 150 MG Senna/Docusate Sodium (Senokot S Tab) 2 tab BID PO 05/13/16 21:00 06/12/16 20:59 Future Hold 05/29/16 21:01 2 TAB Sertraline HCl (Zoloft Tab) 100 mg DAILY PO 05/14/16 09:00 06/13/16 08:59 Future Hold 05/30/16 09:51 100 MG Tramadol HCl (Ultram Tab) 50 mg Q6H PRN PO 05/13/16 19:00 06/12/16 18:59 Future Hold 05/29/16 19:41 50 MG Miscellaneous Information (Order Awaiting Action) 1 ea QS N/A 05/14/16 00:00 06/13/16 00:00 Ferrous Sulfate (Feosol Tab) 325 mg DAILY PO 05/14/16 09:00 06/13/16 08:59 Future Hold 05/29/16 11:53 325 MG Miscellaneous Information (Order Awaiting Action) 1 ea QS N/A 05/14/16 00:00 06/13/16 00:00 Miscellaneous Information (Order Awaiting Action) 1 ea QS N/A 05/14/16 00:00 06/13/16 00:00 Pantoprazole Sodium (Protonix Tab) 40 mg BID PO 05/13/16 21:00 06/12/16 20:59 Future Hold 05/29/16 21:01 40 MG Polyethylene (Miralax Powder Packet) 17 gm DAILY PRN PO 05/13/16 20:15 06/12/16 20:14 Glucose (Glucose 40% Gel) 15-30 GRAMS 15 GRAMS... UD PRN PO 05/13/16 19:00 06/12/16 18:59 Glucose (Glucose Chew Tab) 4-8 Tablets 4 Tabl... UD PRN PO 05/13/16 19:00 06/12/16 18:59 Dextrose (Dextrose 50% 50ML Syringe) 25-50ML OF 50% DW IV FOR... UD PRN IV 05/13/16 19:00 06/12/16 18:59 Glucagon (Glucagon Inj) 1 mg UD PRN SQ 05/13/16 19:00 06/12/16 18:59 Mineral Oil (Fleet Oil Enema) 133 ml DAILY PRN AL 05/14/16 13:30 06/13/16 13:29 Albuterol/ Ipratropium (Duoneb) 3 ml Q6H PRN INH 05/15/16 08:38 06/14/16 08:37 05/29/16 19:03 3 ML Miscellaneous Information (Consult Glycemic Management Pharmacy) 1 ea UD PRN N/A 05/15/16 08:45 06/14/16 08:44 Polyethylene (Miralax Powder Packet) 17 gm DAILY PO 05/16/16 09:00 06/15/16 08:59 05/19/16 08:23 17 GM Hydralazine HCl (Apresoline Tab) 50 mg TID PO 05/18/16 14:00 06/17/16 13:59 Future Hold 05/29/16 14:35 50 MG Furosemide (Lasix Tab) 40 mg QAM PO 05/18/16 09:00 06/17/16 08:59 Future Hold 05/29/16 11:53 40 MG Isosorbide Dinitrate (Isordil Tab) 20 mg TID@0700,1200,1700 PO 05/20/16 12:00 06/19/16 11:59 Future Hold 05/30/16 08:25 20 MG Ipratropium [place] (Atrovent 0.02% 0.5MG/2.5ML Neb) 0.5 mg Q6R PRN INH 05/26/16 15:15 06/25/16 15:14 Levalbuterol (Xopenex 1.25MG/ 0.5ML Neb) 1.25 mg Q6R PRN INH 05/26/16 15:15 06/25/16 15:14 Hydralazine HCl (HydrALAZINE INJ) 5 mg Q6 PRN IV. 05/28/16 13:45 06/27/16 13:44 05/30/16 18:22 5 MG Insulin Glargine (Lantus Solostar Pen) GIVE 10 UNITS FOR BSG < ... Q12 SC 05/30/16 21:00 06/29/16 20:59 Enoxaparin Sodium (Lovenox Inj) 40 mg DAILY SQ 05/31/16 09:00 06/30/16 08:59 Ondansetron HCl 4 mg 4 mg Q4H PRN IV 05/30/16 16:45 06/29/16 16:44 Clindamycin Phosphate/Dextrose (Cleocin Iv/ Dextrose Add-[place] 100ML) 106 ml @ 100 mls/hr Q6H IV 05/30/16 20:00 05/31/16 03:04 05/30/16 19:40 100 MLS/HR Metoclopramide HCl (Reglan Inj) 10 mg Q8 IV. 05/30/16 22:00 05/31/16 21:59 Hydromorphone HCl 0.5 mg 0.5 mg Q3H PRN IV 05/30/16 16:45 06/13/16 16:44 Acetaminophen 1000 mg/Empty Bag 100 ml @ 400 mls/hr Q8@0600,1400,2200 IV 05/30/16 22:00 06/29/16 21:59 Sodium Chloride (Nss 1000ml) 1,000 ml @ 75 mls/hr [id number] IV 05/30/16 16:42 06/29/16 16:41 05/30/16 18:40 75 MLS/HR Metoprolol Tartrate 2.5 mg 2.5 mg Q6 IV. 05/30/16 18:00 06/29/16 17:59 Amiodarone HCL/ Dextrose (Nexterone / D5w) 200 ml @ 16.7 mls/hr [id number] IV 05/30/16 17:00 06/29/16 16:59 05/30/16 18:29 16.7 MLS/HR Insulin Aspart SLIDING SCALE G... Q6 SC 05/30/16 18:00 06/29/16 17:59 05/30/16 20:07 1 UNITS Pantoprazole Sodium 40 mg/ Syringe 10 ml @ 5 mls/min DAILY@09,21 IV 05/30/16 21:00 06/29/16 20:59 UNV Famotidine/ Dextrose (Pepcid IV Inj/ D5 100ml) 101 ml @ 200 mls/hr Q12H IV 05/30/16 20:00 06/29/16 19:59 UNV Clonidine HCl (Dxsedgdy-Jpp-3 0.2mg/24hr Patch) 1 patch CQWK TD 05/30/16 20:00 06/29/16 19:59 UNV Miscellaneous (Remove Clonidine Patch) 1 ea Q7D N/A 06/06/16 20:00 07/06/16 19:59 UNV Miscellaneous Information (Check Clonidine Patch Placement) 1 ea QS N/A 05/31/16 00:00 06/30/16 00:00 UNV Review of Systems unable to obtain as patient had received ketamine and is very drowsy Respiratory: No shortness of breath Physical Exam Date Time Temp Pulse Resp B/P Pulse Ox O2 Delivery O2 Flow Rate FiO2 05/30/16 20:00 98 Nasal Cannula 2.0 05/30/16 20:00 36.9 60 20 133/95 98 Nasal Cannula 2.0 101/51 05/30/16 19:30 61 16 111/78 98 Nasal Cannula 2.0 05/30/16 19:07 60 95/57 05/30/16 19:00 60 17 123/61 98 Nasal Cannula 2.0 05/30/16 18:56 36.4 61 19 98 3.0 05/30/16 18:50 61 19 100/76 98 Nasal Cannula 3.0 05/30/16 18:49 61 15 115/38 97 Nasal Cannula 3.0 05/30/16 18:46 60 14 108/47 98 Nasal Cannula 3.0 05/30/16 18:35 60 18 151/107 98 Nasal Cannula 3.0 05/30/16 18:20 60 13 172/95 98 Nasal Cannula 3.0 05/30/16 17:40 36.4 60 19 165/66 96 Nasal Cannula 4 05/30/16 17:30 60 19 138/88 96 Nasal Cannula 4 05/30/16 17:20 61 19 138/88 100 Mask 10 05/30/16 17:10 62 16 106/91 100 Mask 10 05/30/16 17:04 36.0 60 20 133/116 100 Mask 10 05/30/16 12:05 36.7 89 22 187/82 90 Room Air 05/30/16 08:00 Room Air 05/30/16 07:40 36.9 61 14 196/101 93 Room Air 61 05/30/16 06:16 60 153/66 05/30/16 00:08 36.5 71 18 137/72 93 Room Air 05/29/16 20:53 61 104/64 General Appearance: WD/WN, no apparent distress Head: normocephalic Eyes: normal inspection ENT: normal ENT inspection, hearing grossly normal Neck: supple Respiratory/Chest: chest non-tender Cardiovascular: regular rate, rhythm, no edema, + systolic murmur Abdomen/GI: normal bowel sounds, non tender, soft Extremities/Musculoskelatal: + pedal edema (mild) Neurologic/Psych: oriented x 3 Laboratory Results Last 24 Hours Test 05/30/16 06:12 05/30/16 06:55 05/30/16 07:32 05/30/16 11:30 Bedside Glucose 220 mg/dl 223 mg/dl 198 mg/dl White Blood Count 12.11 K/uL Red Blood Count 4.13 M/uL Hemoglobin 12.6 g/dL Hematocrit 40.7 % Mean Corpuscular Volume 98.5 fL Mean Corpuscular Hemoglobin 30.5 pg Mean Corpuscular Hemoglobin Concent 31.0 g/dl Platelet Count 118 K/uL Mean Platelet Volume 9.7 fL Neutrophils (%) (Auto) 87.3 % Lymphocytes (%) (Auto) 4.1 % Monocytes (%) (Auto) 7.3 % Eosinophils (%) (Auto) 0.1 % Basophils (%) (Auto) 0.1 % Neutrophils # (Auto) 10.58 K/uL Lymphocytes # (Auto) 0.50 K/uL Monocytes # (Auto) 0.88 K/uL Eosinophils # (Auto) 0.01 K/uL Basophils # (Auto) 0.01 K/uL RDW Standard Deviation 60.2 fL RDW Coefficient of Variation 16.9 % Immature Granulocyte % (Auto) 1.1 % Immature Granulocyte # (Auto) 0.13 K/uL Sodium Level 143 mmol/L Potassium Level 4.4 mmol/L Chloride Level 104 mmol/L Carbon Dioxide Level 31 mmol/L Anion Gap 8.0 mmol/L Blood Urea Nitrogen 59 mg/dl Creatinine 1.50 mg/dl Est Creatinine Clear Calc Drug Dose 31.1 ml/min Estimated GFR () 37.5 Estimated GFR (Non- 32.3 BUN/Creatinine Ratio 39.0 Random Glucose 254 mg/dl Calcium Level 8.3 mg/dl Magnesium Level 2.7 mg/dl Test 05/30/16 12:07 05/30/16 14:53 05/30/16 15:31 05/30/16 17:11 Bedside Glucose 218 mg/dl 258 mg/dl 229 mg/dl 175 mg/dl Test 05/30/16 19:47 Bedside Glucose 171 mg/dl Diagnostic Results SINGLE VIEW CHEST CLINICAL HISTORY: Status post thoracotomy. FINDINGS: An AP, portable, upright chest radiograph is compared to study dated 05/18/2016 and correlated with chest CT dated 05/23/2016. The examination is degraded by portable technique and patient rotation. An enteric tube projects below the diaphragm over the stomach. A chest tube is noted at the left lung base. A 2-lead cardiac pacemaker is unchanged in position. The heart is enlarged and there is atherosclerotic calcification of the thoracic aorta. The pulmonary vasculature is noncongested. Enlargement of the central pulmonary arteries is similar to previous and consistent with pulmonary artery hypertension. There is no large pleural effusion. Bibasilar airspace opacities are noted. There is a small left apical pneumothorax. No right-sided pneumothorax is seen. The skeletal structures are osteopenic. The bony thorax is grossly intact. Subcutaneous emphysema is noted in the left lower chest wall. IMPRESSION: 1. A chest tube is present at the left lung base. There is a small left apical pneumothorax. 2. An enteric tube has been placed. The tip projects below the diaphragm. 3. Cardiomegaly and cardiac pacemaker. There is no radiographic evidence of congestive failure. 4. Bibasilar airspace opacities likely represent atelectasis. Clinical correlation will be required. 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 She was been treated for acute hypoxic resp failure secondary to COPD +/- CHF exacerbation s/p laparoscopic hiatal hernia repair Neuro: - pain control with Dilaudid 0.5 mg q3h PRN, IV acetaminophen Resp: Acute hypoxic resp failure ; COPD +/- CHF exacerbation: - was hypoxic on arrival with Sao2 at 87 - currently on 2L NC - has been receiving Prednisone 20 mg BID since admission- converted to hydrocortisone 40 mg TID - Continue clindamycin - Continue albuterol, Xopenex, DuoNeb - Singulair and Mucinex currently held CVS: - CHF exacerbation: Resp failure likely contributed by CHF exacerbation - Strict Is and Os - daily weights - Lasix 40 mg qAM- h/o A fib: currently in NSR - [id number] vasc score of 6 - Amiodarone drip started postop - No AC since h/o subdural hematoma after fall SSS s/p pacemaker stable HTN: - On Clonidine, hydralazine, metoprolol, losartan- held as she is NPO - Clonidine patch 0.2 mg - Lopressor 2.5 mg Q6H - hydralazine PRN MV anamoly: stable had TTE and SEJAL Renal : RACHELL: Cr baseline 1.2-1.3, today 1.5 Monitor Cr GI/FEN: GERD/hiatal hernia: s/p hernia repair - NPO - Protonix 40 mg BID - Pepcid 10 mg BID( renally dosed) Constipation: - senna - currently held Endocrine: - Diabetes: - Glipizide held - ISS Hypothyroidism: - levothyroxine 50 mcg oral switched to 37.5 mcg IV Psych: Depression: - sertraline- currently held Access: Peripheral IV: RUE and Left UE arterial line : LUE DVT prophylaxis: SCDs DNR Resident Physician Supervision Note: Dr. Arash Soto was resident physician during care of patient. I separately evaluated patient and did history and exam. I discussed the case with the resident and generally agree with the findings and plan. Significant post-operative pain, improves with 10 mg ketamine. Will start to decrease steroids. I have personally spent 34 minutes of critical care time in the direct management of this patient. This is a life/limb threatening event. This includes time spent evaluating patient, direct bedside care, chart review, placing orders, interpretation of diagnostic studies, discussion with consultants, patient, and family members, as well as other required patient management activities. This time is exclusive of all separately billable procedures, and teaching time and separate from and in addition to any other critical care service time. Documented By: Dave Blake DO
[2016-05-30] MEDS: ACETAMINOPHEN IV 1,000 MG in EMPTY BAG 0 ML IV SCH (21:35)
[2016-05-30] MEDS: HYDROCORTISONE IV SCH (21:36)
[2016-05-30] MEDS: METOCLOPRAMIDE HCL INJ 5 MG/ML 2 ML VIAL IV. SCH (21:36)
[2016-05-30] MEDS: PANTOprazole INJ 40 MG in SYRINGE 0 ML IV SCH (21:36)
[2016-05-30] MEDS ORDERED: FAMOTIDINE IV INJ 10 MG in DEXTROSE 5% 100ML 100 ML IV SCH (22:00)
[2016-05-30] MEDS: CLONIDINE HCL 0.2 MG/24 HR TRANSDERM SYS TD SCH (22:00)
[2016-05-31] VITALS (18 sets, daily range): BP systolic 101–168; BP diastolic 49–103; PULSE 60–63; TEMP 36.5–36.8; O2SAT 92–99
[2016-05-31] MEDS: INSULIN ASPART 100 UNITS/ML 3 ML PEN SC SCH ×4 (00:06→17:19)
[2016-05-31] MEDS: CLINDAMYCIN IV 900 MG in DEXTROSE 5% ADD-VANTAGE 100ML 100 ML IV SCH (01:51)
[2016-05-31] MEDS: AMIODARONE / D5W 200 ML IV SCH ×2 (04:51→17:18)
[2016-05-31] MEDS: METOPROLOL TARTRATE 1 MG/ML VIAL IV. SCH ×5 (05:56→23:48)
[2016-05-31] MEDS: ACETAMINOPHEN IV 1,000 MG in EMPTY BAG 0 ML IV SCH ×3 (06:00→21:42)
[2016-05-31] MEDS: METOCLOPRAMIDE HCL INJ 5 MG/ML 2 ML VIAL IV. SCH ×2 (06:00→13:58)
[2016-05-31 07:07] LABS: HEMATOCRIT 36.6 % (37-47); MEAN CELL VOLUME 99.5 fL (80-100); MEAN CORPUSCULAR HEMOGLOBIN 31.8 pg (25-34); MEAN PLATELET VOLUME 9.5 fL (7.4-10.4); PLATELET COUNT 121 K/uL (130-400); RED BLOOD COUNT 3.68 M/uL (4.2-5.4); WHITE BLOOD COUNT 24.23 K/uL (4.8-10.8)
[2016-05-31 07:14] LABS: COMPLETE YES; LYMPH ABS # 0.63 K/uL (1.2-3.4); LYMPHOCYTE % 2.6 %; NEUTROPHILS % 91.3 %
[2016-05-31 07:29] LABS: CREATININE 1.4 mg/dl (0.60-1.20); MAGNESIUM 2.5 mg/dl (1.8-2.4); POTASSIUM 4.9 mmol/L (3.5-5.1)
[2016-05-31] MEDS: CHECK CLONIDINE PATCH PLACEMENT SCH ×4 (08:00→23:48)
--- NOTE | 2016-05-31 08:26 | DIAGNOSTIC IMAGING REPORT ---
CHEST ONE VIEW PORTABLE HISTORY: s/p thoracotomy COMPARISON: Chest 05/30/2016. FINDINGS: Nasogastric tube terminates in the stomach. Chest tube is located within the left lateral lung base. This is unchanged in position. Small left apical pneumothorax persists. Bibasilar densities and trace bilateral pleural effusions are unchanged. The heart remains enlarged. Left-sided pacemaker. IMPRESSION: 1. Overall, no significant change compared to the prior study. 2. Small left apical pneumothorax persists. 3. Bibasilar densities and trace bilateral pleural effusions are again noted. 4. Cardiomegaly. Electronically signed by: Anjel Bear M.D. 05/31/2016 8:24 AM Dictated Date/Time: 05/31/2016 8:22 AM
[2016-05-31] MEDS: POLYETHYLENE (MIRALAX) 17 GM PACK PO SCH (08:36)
[2016-05-31] MEDS: FLUTICASONE PROPIONATE NA SPR 16 GM BTL SCH (08:37)
[2016-05-31] MEDS: PANTOprazole INJ 40 MG in SYRINGE 0 ML IV SCH ×2 (08:37→20:26)
[2016-05-31] MEDS: HYDROCORTISONE IV SCH ×3 (08:38→20:27)
[2016-05-31] MEDS: SODIUM CHLORIDE 0.9% 1000ML 1,000 ML IV SCH ×2 (08:57→20:26)
--- NOTE | 2016-05-31 08:57 | SURGERY PROGRESS NOTE ---
DATE: 05/31/2016 DATE: 05/31/2016. Mrs. Robledo was seen today on 05/31/2016. She is 1 day status post left thoracotomy and Belsey Jose IV repair for a recurrent hiatal hernia. As would be expected this 80-year-old patient had some struggles with pain and other issues overnight. Today, she looks fairly stable. She has been afebrile. Her heart rate is 60. She is not tachypneic. Her blood pressure has been stable. On 2 liters she is running anywhere from 92% to 98% saturations. Her urine output has been adequate at 350 mL over the last 8 hours. Her chest tube has drained a total of 300 mL of serous fluid. She has very poor respiratory effort and a very poor cough. She has decreased breath sounds throughout with some mild wheezing and some rhonchi. She has a regular rate and rhythm of her heart. Her abdomen is soft with good bowel sounds and is nontender. She has no air leak in her chest tube. It is serous drainage. Her white count is 24,230, but she did receive hydrocortisone as well as Decadron. Her hemoglobin is rather stable. She went from 12.6 preop to 11.7. Her sodium is 144, potassium 4.9, chloride 106, bicarbonate 29. Her BUN and creatinine are 52 and 1.4 and she was 59 and 1.5 preoperatively. A chest x-ray shows really no change from her postop film. Chest tube is in good place. She has a very tiny apical pneumothorax. ASSESSMENT AND PLAN: Postoperative day #1 status post left thoracotomy with Belsey Jose IV repair. I want to keep her n.p.o. with NG tube in place. It is draining bilious fluid and she does not have much in the way of drainage. She may be a tad on the dry side. Her weight is up but she did undergo surgery. We are going to continue to monitor her on amiodarone until she is able to take p.o. Will check a swallow on Sunday06/02/2016.
[2016-05-31] MEDS: ALBUT/IPRATROP 3MG/0.5MG NEB 3 ML VIAL INH SCH ×6 (09:00→23:29)
[2016-05-31] MEDS ORDERED: INSULIN GLARGINE SOLOSTAR 100 UNITS/ML 3 ML PEN SC SCH (09:00)
[2016-05-31] MEDS ORDERED: LEVOTHYROXINE SODIUM 20 MCG/1 ML IM SCH (09:00)
[2016-05-31] MEDS ORDERED: ENOXAPARIN 40 MG/0.4 ML SYR SQ SCH (09:00)
[2016-05-31] MEDS ORDERED: LEVOTHYROXINE SODIUM INJ 37.5 MCG in SYRINGE 0 ML IM SCH (09:00)
[2016-05-31] MEDS: LEVOTHYROXINE SODIUM INJ 37.5 MCG in SYRINGE 0 ML IV SCH (09:18)
--- NOTE | 2016-05-31 11:06 | Cardiology Follow-Up ---
Subjective General Date of Service: May 31, 2016. Chief Complaint: SOB Pt evaluation today including: conversation w/ patient, physical exam, chart review, lab review, review of studies, review of inpatient medication list History of Present Illness Patient underwent hiatal hernia repair yesterday. Doing ok post op. Pain controlled. NG tube in place. Chest tube in place on left secondary to small pneumo She denies chest pain or SOB. No dizziness. Remains in NSR on IV metoprolol and IV amio. Allergies Coded Allergies: Penicillins (Verified Allergy, Mild, rash, 05/13/16) Morphine (Verified Allergy, Unknown, UNKNOWN, 05/13/16) Codeine (Verified Adverse Reaction, Unknown, MAKES ME HIGH, 05/13/16) Social History Smoking Status: Never Smoker Hx Tobacco Use In Past Year?: No Hx Alcohol Use - Type And Amou: No Hx Substance Use - Type And Am: No Problem List Medical Problems: (1) Abdominal pain Status: Acute (2) Chest pain Status: Acute (3) CHF (congestive heart failure) Status: Acute (4) Chronic obstructive pulmonary disease Status: Acute (5) Constipation Status: Acute (6) Cough Status: Acute (7) Hypoxia Status: Acute (8) Left sided chest pain Status: Acute (9) Pneumonia Status: Acute (10) Shortness of breath Status: Acute (11) Symptomatic bradycardia Status: Acute (12) Traumatic intracranial hemorrhage Status: Acute Review of Systems Respiratory: No cough, No dyspnea at rest, No hemoptysis, No shortness of breath, No sputum, No wheezing Cardiac: No PND, No chest pain, No edema, No orthopnea, No palpitations Physical Exam Vital Signs Last Vital Signs Documentation Date Time Temp Pulse Resp B/P Pulse Ox O2 Delivery O2 Flow Rate FiO2 05/31/16 05:56 60 20 131/55 92 Nasal Cannula 2.0 05/31/16 04:00 36.7 Physical Exam Constitutional: General Apperance: overweight Level of Distress: acutely ill, chronically ill Psychiatric: Orientation: to time, to place, to person Head: normocephalic Eyes: Pupils: PERRLA Neck: supple Lungs: Auscultation: no wheezing, no rales/crackles, deminished air movement ( anterior chest) Cardiovascular: Heart Auscultation: RRR, normal S1, normal S2, II/ SAMANTHA Abdomen: Bowel Sounds: normal Inspection & Palpation: soft, no tenderness, guarding & rebound Extremities: no edema, no clubbing Neurologic: Gait & Station: pertinent finding (No focal motor deficit) Cranial Nerves: grossly intact Assessment and Plan Assessment and Plan FINAL IMPRESSION: 1. S/P left thoracotomy and HH repair yesterday, small pneumo with chest tube in place 2. Chronic compensated diastolic heart failure. 3. 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 No evidence of infectious endocarditis, anticoagulation contraindicated. 4. Mild aortic stenosis with moderate regurgitation. 5. Sick sinus syndrome, status post pacemaker placement - telemetry demonstrating atrial paced rhythm. 6. Paroxysmal atrial fibrillation - current NSR. 9. Chronic kidney disease - stable PLAN AND RECOMMENDATIONS: Monitor I+O's and fluid status closely. PO meds on hold, including furosemide. May need small doses of IV furosemide to maintain volume status and prevent CHF exacerbation given significant IV medications that the patient is currently receiving. Otherwise agreeable with IV amio and IV metoprolol to maintain NSR. Will resume PO cardiac meds when able. Discussed with Dr. Blancas. Will follow. Patient seen and examined, agree with above. No arrhythmias or volume overload currently Surgical discomfort controlled. Sim Blancas MD Laboratory Results Last 24 Hours Test 05/30/16 11:30 05/30/16 12:07 05/30/16 14:53 05/30/16 15:31 Bedside Glucose 198 mg/dl 218 mg/dl 258 mg/dl 229 mg/dl Test 05/30/16 17:11 05/30/16 19:47 05/30/16 23:52 05/31/16 05:59 Bedside Glucose 175 mg/dl 171 mg/dl 206 mg/dl 138 mg/dl Test 05/31/16 06:38 White Blood Count 24.23 K/uL Red Blood Count 3.68 M/uL Hemoglobin 11.7 g/dL Hematocrit 36.6 % Mean Corpuscular Volume 99.5 fL Mean Corpuscular Hemoglobin 31.8 pg Mean Corpuscular Hemoglobin Concent 32.0 g/dl Platelet Count 121 K/uL Mean Platelet Volume 9.5 fL RDW Standard Deviation 61.0 fL RDW Coefficient of Variation 17.0 % Neutrophils % (Manual) 91.3 % Lymphocytes % (Manual) 2.6 % Monocytes % (Manual) 6.1 % Neutrophils # (Manual) 22.12 K/uL Total Absolute Neutrophils 22.12 K/uL Lymphocytes # (Manual) 0.63 K/uL Total Absolute Lymphocytes 0.63 K/uL Monocytes # (Manual) 1.48 K/uL Sodium Level 144 mmol/L Potassium Level 4.9 mmol/L Chloride Level 106 mmol/L Carbon Dioxide Level 29 mmol/L Anion Gap 9.0 mmol/L Blood Urea Nitrogen 52 mg/dl Creatinine 1.40 mg/dl Est Creatinine Clear Calc Drug Dose 34.1 ml/min Estimated GFR () 40.7 Estimated GFR (Non- 35.1 BUN/Creatinine Ratio 37.0 Random Glucose 158 mg/dl Calcium Level 8.0 mg/dl Magnesium Level 2.5 mg/dl
[2016-05-31] MEDS: HYDROmorphone INJ 1 MG/ML SYR IV PRN ×2 (11:42→23:55)
--- NOTE | 2016-05-31 13:58 | Anesthesiology Progress Note ---
Anesthesia Post Op Note Date & Time May 31, 2016 at 13:57 Vital Signs Pain Intensity: 5.0 Vital Signs Past 12 Hours Date Time Temp Pulse Resp B/P Pulse Ox O2 Delivery O2 Flow Rate FiO2 05/31/16 12:00 36.6 60 16 115/66 94 Nasal Cannula 2.0 05/31/16 11:43 60 158/57 05/31/16 10:00 60 21 149/55 97 Nasal Cannula 2.0 119/103 05/31/16 08:00 99 Nasal Cannula 2.0 05/31/16 08:00 Nasal Cannula 05/31/16 08:00 36.5 60 22 103/89 99 Nasal Cannula 2.0 102/49 05/31/16 05:56 60 20 131/55 92 Nasal Cannula 2.0 05/31/16 05:56 60 135/55 05/31/16 04:00 98 Nasal Cannula 2.0 05/31/16 04:00 36.7 60 19 120/98 97 Nasal Cannula 2.0 116/66 05/31/16 02:00 60 20 115/94 98 Nasal Cannula 2.0 Notes Mental Status: see Notes Pt Amnestic to Procedure: Yes Nausea / Vomiting: adequately controlled Pain: adequately controlled Airway Patency, RR, SpO2: stable & adequate BP & HR: stable & adequate Hydration State: stable & adequate Anesthetic Complications: no major complications apparent Pt. OK per RN. No anesthesia complications per RN.
[2016-05-31] MEDS ORDERED: FUROSEMIDE INJ 40 MG in SYRINGE 0 ML IV ONE (14:00)
--- NOTE | 2016-05-31 14:19 | Pharmacy Progress Note ---
Glycemic Control: Progress Nt Date of Service May 31, 2016. Scope Glycemic Pharmacist consulted by Dr Hinton on 05/15/2016 for glycemic control and to write orders per [facility] inpatient glycemic control protocol. Objective Accuchecks BSG (last 24hrs): Test 05/30/16 14:53 05/30/16 15:31 05/30/16 17:11 05/30/16 19:47 Bedside Glucose 258 mg/dl (70-90) 229 mg/dl (70-90) 175 mg/dl (70-90) 171 mg/dl (70-90) Test 05/30/16 23:52 05/31/16 05:59 05/31/16 06:38 05/31/16 11:19 Bedside Glucose 206 mg/dl (70-90) 138 mg/dl (70-90) 134 mg/dl (70-90) Random Glucose 158 mg/dl (70-99) Laboratory Data (last 24hrs) Test 05/31/16 06:38 Anion Gap 9.0 mmol/L BUN/Creatinine Ratio 37.0 Blood Urea Nitrogen 52 mg/dl Creatinine 1.40 mg/dl Potassium Level 4.9 mmol/L Sodium Level 144 mmol/L White Blood Count 24.23 K/uL Red Blood Count 3.68 M/uL Hemoglobin 11.7 g/dL Hematocrit 36.6 % Mean Corpuscular Volume 99.5 fL Mean Corpuscular Hemoglobin 31.8 pg Mean Corpuscular Hemoglobin Concent 32.0 g/dl Platelet Count 121 K/uL Mean Platelet Volume 9.5 fL Recent Pertinent Medications Outpatient Anti-diabetic Regimen: * glipizide ER 2.5mg PO daily * A1c = 7% 03/2016 The patient is currently receiving: * Basal insulin: Lantus 10 units q AM, 15 units q PM - hold if BSG is less than 120mg/dL * Correctional Insulin: NovoLog Correction per scale AC/HS Goal Range: Low 120 mg/dL - High 160 mg/dL Correction Factor: 25 mg/dL/unit * Prandial insulin: Per carb ratio of 1 unit per 9 grams CHO consumed Risk Factors for Insulin Resistance: * Steroids: Prednisone 20mg PO BID --> Dexamethasone 8mg x1 preop, hydrocortisone 100mg IV preop --> hydrocortisone 40mg IV TID * Diet: T2DM/ Low Na --> NPO (s/p hernial repair on 05/30/16) Assessment & Plan ASSESSMENT: * ADA & AACE recommend a goal blood sugar range 140-180 mg/dl for the majority of critically ill & non-critically ill patients. However, more stringent targets may be selected in individual cases. 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 * Outpatient control appropriate based on A1c * Currently, experiencing hyperglycemia secondary to BID prednisone * Tighten NovoLog parameters * add additional Accu-checks overnight until euglycemic * Taper insulin doses at steroids decrease * Fasting BSG elevated both yesterday and today * one time dose of Lantus and then reassess need for basal insulin CURRENT: * BSGs have been labile over the past few days secondary to change in eating habits. * Steroids changed abruptly with trip to the OR - * Ms Robledo very susceptible to steroid induced hyperglycemia (when eating) - continue to monitor * Currently NPO after hernia repair * likely insulin needs will decrease x1-2 days post op for this reason - decrease insulin doses * NovoLog parameters changed by provider this AM * continue with Epifanio's orders at this time and titrate as needed PLAN FOR INPATIENT GLYCEMIC CONTROL: * Lantus 10 units SQ x1 dose this AM * Hold Lantus tonight as patient remains NPO and BSG below ICU goal range. * NovoLog AC and HS * Correction factor to 25mg/dL/unit * Carb ratio to 1 unit per 20 g of CHO consumed - CF/CR per provider * Goal range 120-160mg/dL --> 140-180mg/dL for ICU status * A1c - current * added to discharge instructions RECOMMENDATIONS FOR DISCHARGE: * If no steroids at d/c - continue home glipizide. * Please note that the plan above was derived based on current level of insulin resistance and hospital stress. These recommendations are appropriate for inpatient admission only. Plan of care upon discharge will need to be reassessed to avoid potential outpatient hypo/hyperglycemia. Thank you.
--- NOTE | 2016-05-31 17:40 | Progress Note ---
Internal Med Progress Note Date of Service: May 31, 2016. Provider Documentation: SUBJECTIVE: s/p surgery 05/30/16 for hiatal hernia afebrile sitting on the chair comfortably pain is better today denies chest pain or sob no nausea OBJECTIVE: Vital Signs-as noted below Exam: General-alert and awake. seems in pain ENT-normal hearing Neck-no neck masses Lungs-cta b/l no wheezing or crackles s/p left sided chest tube Heart-s1 and s2 heard regular rate and rhythm no murmurs Abdomen-soft bowel sounds sluggish non tender no distension Extremities-no erythema Neuro-alert and awake moves extremities Lab data as noted below. ASSESSMENT & PLAN: 80 yoF with significant heart history and valve issues admitted for increased work of breathing 2/2 CHF exacerbation. Belching severe mostly from hiatal hernia s/p status post left thoracotomy with Belsey Jose IV repair s/p surgery today 05/30/16 close monitor in ICU. on NG tube management as per ct surgery critical care on board. Hx of a fib currently on amiodarone drip as patient is npo. Hospital course so far: Intial presentation with ACUTE HYPOXIC RESPIRATORY FAILURE, LIKELY MULTIFACTORIAL DUE TO ACUTE DIASTOLIC CHF AND/OR COPD EXACERBATION Presented with cough and SOB x 3 days; influenza outbreak at [facility] however patient has been on prophylactic Tamilfu since 05/05 87% on room air on arrival, improved with oxygen 2L via NC Treated with steroids, Lasix and abx echo no change from previous cardiology on board Cardiology started on lower dose Losartan which was stopped secondary to arf and hyperkalemia requiring oxygen while sleeping on nocturna pulse ox study restarted Lasix 40mg daily. pt/ot nebs prn currently stable will monitor MITRAL VALVE ANOMALY echo-unchanged. cardiology on board stable CONSTIPATION KU fecal retention was on lactulose stopped lactulose secondary to abdominal gas currently on miralx daily had enema currently s/p surgery Hyperkalemia k 5.3 losartan stopped had a dose of Kayexalate resolved ATRIAL FIBRILLATION on amiodarone and metoprolol rate controlled Not anticoagulated due to hx of hemorrhagic pericardial effusion and subdural hematoma s/p fall will monitor post op currently on amiodarone drip SSS S/P PACER no acute issues HTN on clonidine, hydralazine, and metoprolol hydralazine dose increased losartan stopped secondary to ARF and hyperkalemia BP up and down iv hydralazine prn will monitor ARF' baseline cr 1.2 to 1.3 cr 1.4 today will f/u labs. DM hgb a1c 7.0 03/2016 oral agents on hold. SSI while hospitalized will monitor GERD, HIATAL HERNIA on PPI/H2 filipe HYPOTHYROIDISM on levothyroxine DEPRESSION on sertraline DVT PROPHYLAXIS SCDs due to hx of hemorrhagic pericardial effusion and subdural hematoma CODE STATUS DNR DISPO: close monitor in ICU Vital Signs: Date Time Temp Pulse Resp B/P Pulse Ox O2 Delivery O2 Flow Rate FiO2 05/31/16 17:20 60 156/72 05/31/16 14:25 60 16 95 Nasal Cannula 2.0 05/31/16 12:00 94 Nasal Cannula 2.0 05/31/16 12:00 36.6 60 16 115/66 94 Nasal Cannula 2.0 05/31/16 11:43 60 158/57 05/31/16 10:00 60 21 149/55 97 Nasal Cannula 2.0 119/103 05/31/16 08:00 99 Nasal Cannula 2.0 05/31/16 08:00 Nasal Cannula 05/31/16 08:00 36.5 60 22 103/89 99 Nasal Cannula 2.0 102/49 05/31/16 05:56 60 20 131/55 92 Nasal Cannula 2.0 05/31/16 05:56 60 135/55 05/31/16 04:00 98 Nasal Cannula 2.0 05/31/16 04:00 36.7 60 19 120/98 97 Nasal Cannula 2.0 116/66 05/31/16 02:00 60 20 115/94 98 Nasal Cannula 2.0 05/31/16 01:00 63 19 110/89 98 Nasal Cannula 2.0 116/53 05/31/16 00:00 36.7 60 20 114/90 97 Nasal Cannula 2.0 101/76 05/31/16 00:00 98 Nasal Cannula 2.0 05/31/16 00:00 60 101/76 05/30/16 23:00 60 19 98 Nasal Cannula 2.0 116/57 05/30/16 22:00 60 20 100 Nasal Cannula 2.0 112/48 05/30/16 21:00 60 20 120/92 100 Nasal Cannula 2.0 05/30/16 20:00 98 Nasal Cannula 2.0 05/30/16 20:00 36.9 60 20 133/95 98 Nasal Cannula 2.0 101/51 05/30/16 19:30 61 16 111/78 98 Nasal Cannula 2.0 05/30/16 19:07 60 95/57 05/30/16 19:00 60 17 123/61 98 Nasal Cannula 2.0 05/30/16 18:56 36.4 61 19 98 3.0 05/30/16 18:50 61 19 100/76 98 Nasal Cannula 3.0 05/30/16 18:49 61 15 115/38 97 Nasal Cannula 3.0 05/30/16 18:46 60 14 108/47 98 Nasal Cannula 3.0 05/30/16 18:35 60 18 151/107 98 Nasal Cannula 3.0 05/30/16 18:20 60 13 172/95 98 Nasal Cannula 3.0 05/30/16 17:40 36.4 60 19 165/66 96 Nasal Cannula 4 Lab Results: Results Past 24 Hours Test 05/30/16 19:47 05/30/16 23:52 05/31/16 05:59 05/31/16 06:38 Range/Units Bedside Glucose 171 206 138 70-90 mg/dl White Blood Count 24.23 4.8-10.8 K/uL Red Blood Count 3.68 4.2-5.4 M/uL Hemoglobin 11.7 12.0-16.0 g/dL Hematocrit 36.6 37-47 % Mean Corpuscular Volume 99.5 80-100 fL Mean Corpuscular Hemoglobin 31.8 25-34 pg Mean Corpuscular Hemoglobin Concent 32.0 32-36 g/dl Platelet Count 121 130-400 K/uL Mean Platelet Volume 9.5 7.4-10.4 fL RDW Standard Deviation 61.0 36.4-46.3 fL RDW Coefficient of Variation 17.0 11.5-14.5 % Neutrophils % (Manual) 91.3 % Lymphocytes % (Manual) 2.6 % Monocytes % (Manual) 6.1 % Neutrophils # (Manual) 22.12 1.4-6.5 K/uL Total Absolute Neutrophils 22.12 1.4-6.5 K/uL Lymphocytes # (Manual) 0.63 1.2-3.4 K/uL Total Absolute Lymphocytes 0.63 1.2-3.4 K/uL Monocytes # (Manual) 1.48 0.11-0.59 K/uL Sodium Level 144 136-145 mmol/L Potassium Level 4.9 3.5-5.1 mmol/L Chloride Level 106 98-107 mmol/L Carbon Dioxide Level 29 21-32 mmol/L Anion Gap 9.0 3-11 mmol/L Blood Urea Nitrogen 52 7-18 mg/dl Creatinine 1.40 0.60-1.20 mg/dl Est Creatinine Clear Calc Drug Dose 34.1 ml/min Estimated GFR () 40.7 Estimated GFR (Non- 35.1 BUN/Creatinine Ratio 37.0 10-20 Random Glucose 158 70-99 mg/dl Calcium Level 8.0 8.5-10.1 mg/dl Magnesium Level 2.5 1.8-2.4 mg/dl Test 05/31/16 11:19 05/31/16 16:51 Range/Units Bedside Glucose 134 112 70-90 mg/dl
--- NOTE | 2016-05-31 18:18 | Critical Care Progress Note ---
Critical Care Progress Note Date of Service May 31, 2016. Attending Dr. Blake Subjective 80 y/o F , resident of [facility] with a complex PMH was admitted to the hospital after she presented with SOB and cough which started 3 days [employer]. She was been treated for acute hypoxic resp failure secondary to COPD +/- CHF exacerbation , HTN . she has a h/o GERD with a hiatal hernia and had uncontrolled belching for which she was scheduled for a laparoscopic hernia repiar by thorasi surgery She was admitted to the ICU after a laparoscopic hiatal hernia surgery yesterday. Doing well . denies any CP/SOB/palpitations. pain is well controlled. Objective GENERAL: Patient is in no acute distress. HEENT: No acute trauma, normocephalic atraumatic, mucous membranes moist, no nasal congestion, no scleral icterus. NECK: No stridor, no adenopathy, no meningismus, trachea is midline. LUNGS: wheezes, rhonchi, left sided chest tube with serosanguineous drainage HEART: SAMANTHA, regular rate and rhythm. ABDOMEN: Soft, nontender, bowel sounds positive EXTREMITIES: No cyanosis , mild edema, full range of motion of all the joints without pain or difficulty NEUROLOGIC: Oriented x 3, no acute motor or sensory deficits, no focal weakness. SKIN: No rash, no jaundice, no diaphoresis. Assessment & Plan 80 y/o F , resident of [facility] with a complex PMH was admitted to the hospital after she presented with SOB and cough which started 3 days [employer]. She was been treated for acute hypoxic resp failure secondary to COPD +/- CHF exacerbation Postoperative day #1 status post left thoracotomy with Belsey Jose IV repair. Neuro: - pain control with Dilaudid 0.5 mg q3h PRN, IV acetaminophen Resp: Acute hypoxic resp failure ; COPD +/- CHF exacerbation: - was hypoxic on arrival with Sao2 at 87 - currently on 2L NC - has been receiving Prednisone 20 mg BID since admission- converted to hydrocortisone 40 mg TID - Dc clindamycin - Continue albuterol, Xopenex PRN - Duoneb q3h scheduled and q2h PRN - Singulair and Mucinex currently held CVS: - CHF exacerbation: Resp failure likely contributed by CHF exacerbation - Strict Is and Os - daily weights - Lasix 40 mg IV h/o A fib: currently in NSR - [id number] vasc score of 6 - Amiodarone drip started postop - No AC since h/o subdural hematoma after fall SSS s/p pacemaker stable HTN: - On Clonidine, hydralazine, metoprolol, losartan- held as she is NPO - Clonidine patch 0.2 mg - Lopressor 2.5 mg Q6H - hydralazine PRN MV anamoly: stable had TTE and SEJAL Renal : RACHELL: Cr baseline 1.2-1.3, today 1.5 Monitor Cr GI/FEN: GERD/hiatal hernia: s/p hernia repair - NPO - Protonix 40 mg BID - dc pepcid Constipation: - senna - currently held Endocrine: - Diabetes: - Glipizide held - ISS Hypothyroidism: - levothyroxine 50 mcg oral switched to 37.5 mcg IV Psych: Depression: - sertraline- currently held Access: Peripheral IV: RUE and Left UE arterial line : LUE dc DVT prophylaxis: SCDs DNR Resident Physician Supervision Note: Dr. Arash Soto was resident physician during care of patient. I separately evaluated patient and did history and exam. I discussed the case with the resident and generally agree with the findings and plan. Patient remained nothing by mouth until formal swallow evaluation June 02. Mild postoperative anemia, we will continue to monitor, blood sugars within goal range. Will continue amiodarone. Documented By: Dave Blake DO Data Medications: Current Inpatient Medications Medications (Trade) Dose Ordered Sig/Srinivas Route Start Time Stop Time Status Last Admin Dose Admin Acetaminophen (Tylenol Tab) 650 mg Q4H PRN PO 05/13/16 18:30 06/12/16 18:29 Future Hold 05/27/16 12:30 650 MG Prednisone (PredniSONE TAB) 20 mg BID PO 05/13/16 21:00 06/12/16 20:59 Future Hold 05/30/16 09:51 20 MG Amiodarone HCl (Cordarone Tab) 200 mg DAILY PO 05/14/16 09:00 06/13/16 08:59 Future Hold 05/30/16 08:26 200 MG Atorvastatin Calcium (Lipitor Tab) 20 mg DAILY PO 05/14/16 09:00 06/13/16 08:59 Future Hold 05/29/16 11:53 20 MG Clonidine HCl (Catapres Tab) 0.1 mg BID PO 05/13/16 21:00 06/12/16 20:59 Future Hold 05/29/16 11:53 0.1 MG Fluticasone Propionate (Flonase Nasal [place]) 2 sprays DAILY NA 05/14/16 09:00 06/13/16 08:59 05/31/16 08:37 2 SPRAYS Gabapentin (Neurontin Cap) 100 mg TID PO 05/13/16 21:00 06/12/16 20:59 Future Hold 05/30/16 08:26 100 MG Guaifenesin (Mucinex Contr Rel Tab) 600 mg DAILY PO 05/14/16 09:00 06/13/16 08:59 Future Hold 05/29/16 11:53 600 MG Levothyroxine Sodium (Synthroid Tab) 50 mcg DAILYBB PO 05/14/16 06:00 06/13/16 05:59 Future Hold 05/30/16 06:18 50 MCG Mirtazapine (Remeron Tab) 15 mg HS PO 05/13/16 21:00 06/12/16 20:59 Future Hold 05/29/16 21:01 15 MG Montelukast Sodium (Singulair Tab) 10 mg HS PO 05/14/16 21:00 06/13/16 20:59 Future Hold 05/29/16 21:01 10 MG Ranitidine HCl (zANTac TAB) 150 mg BID PO 05/13/16 21:00 06/12/16 20:59 Future Hold 05/29/16 21:01 150 MG Senna/Docusate Sodium (Senokot S Tab) 2 tab BID PO 05/13/16 21:00 06/12/16 20:59 Future Hold 05/29/16 21:01 2 TAB Sertraline HCl (Zoloft Tab) 100 mg DAILY PO 05/14/16 09:00 06/13/16 08:59 Future Hold 05/30/16 09:51 100 MG Tramadol HCl (Ultram Tab) 50 mg Q6H PRN PO 05/13/16 19:00 06/12/16 18:59 Future Hold 05/29/16 19:41 50 MG Miscellaneous Information (Order Awaiting Action) 1 ea QS N/A 05/14/16 00:00 06/13/16 00:00 Ferrous Sulfate (Feosol Tab) 325 mg DAILY PO 05/14/16 09:00 06/13/16 08:59 Future Hold 05/29/16 11:53 325 MG Miscellaneous Information (Order Awaiting Action) 1 ea QS N/A 05/14/16 00:00 06/13/16 00:00 Miscellaneous Information (Order Awaiting Action) 1 ea QS N/A 05/14/16 00:00 06/13/16 00:00 Polyethylene (Miralax Powder Packet) 17 gm DAILY PRN PO 05/13/16 20:15 06/12/16 20:14 Glucose (Glucose 40% Gel) 15-30 GRAMS 15 GRAMS... UD PRN PO 05/13/16 19:00 06/12/16 18:59 Glucose (Glucose Chew Tab) 4-8 Tablets 4 Tabl... UD PRN PO 05/13/16 19:00 06/12/16 18:59 Dextrose (Dextrose 50% 50ML Syringe) 25-50ML OF 50% DW IV FOR... UD PRN IV 05/13/16 19:00 06/12/16 18:59 Glucagon (Glucagon Inj) 1 mg UD PRN SQ 05/13/16 19:00 06/12/16 18:59 Mineral Oil (Fleet Oil Enema) 133 ml DAILY PRN RI 05/14/16 13:30 06/13/16 13:29 Miscellaneous Information (Consult Glycemic Management Pharmacy) 1 ea UD PRN N/A 05/15/16 08:45 06/14/16 08:44 Polyethylene (Miralax Powder Packet) 17 gm DAILY PO 05/16/16 09:00 06/15/16 08:59 05/19/16 08:23 17 GM Hydralazine HCl (Apresoline Tab) 50 mg TID PO 05/18/16 14:00 06/17/16 13:59 Future Hold 05/29/16 14:35 50 MG Furosemide (Lasix Tab) 40 mg QAM PO 05/18/16 09:00 06/17/16 08:59 Future Hold 05/29/16 11:53 40 MG Isosorbide Dinitrate (Isordil Tab) 20 mg TID@0700,1200,1700 PO 05/20/16 12:00 06/19/16 11:59 Future Hold 05/30/16 08:25 20 MG Ipratropium Weaver (Atrovent 0.02% 0.5MG/2.5ML Neb) 0.5 mg Q6R PRN INH 05/26/16 15:15 06/25/16 15:14 Levalbuterol (Xopenex 1.25MG/ 0.5ML Neb) 1.25 mg Q6R PRN INH 05/26/16 15:15 06/25/16 15:14 Hydralazine HCl (HydrALAZINE INJ) 5 mg Q6 PRN IV. 05/28/16 13:45 06/27/16 13:44 05/30/16 18:22 5 MG Enoxaparin Sodium (Lovenox Inj) 40 mg DAILY SQ 05/31/16 09:00 06/30/16 08:59 05/31/16 08:36 40 MG Ondansetron HCl (Zofran Inj) 4 mg Q4H PRN IV 05/30/16 16:45 06/29/16 16:44 Metoclopramide HCl (Reglan Inj) 10 mg Q8 IV. 05/30/16 22:00 05/31/16 21:59 05/31/16 13:58 10 MG Hydromorphone HCl 0.5 mg 0.5 mg Q3H PRN IV 05/30/16 16:45 06/13/16 16:44 05/31/16 11:42 0.5 MG Acetaminophen 1000 mg/Empty Bag 100 ml @ 400 mls/hr Q8@0600,1400,2200 IV 05/30/16 22:00 06/29/16 21:59 05/31/16 13:54 400 MLS/HR Sodium Chloride (Nss 1000ml) 1,000 ml @ 75 mls/hr [id number] IV 05/30/16 16:42 06/29/16 16:41 05/31/16 08:57 75 MLS/HR Metoprolol Tartrate 2.5 mg 2.5 mg Q6 IV. 05/30/16 18:00 06/29/16 17:59 05/31/16 17:20 2.5 MG Amiodarone HCL/ Dextrose (Nexterone / D5w) 200 ml @ 16.7 mls/hr [id number] IV 05/30/16 17:00 06/29/16 16:59 05/31/16 17:18 16.7 MLS/HR Insulin Aspart SLIDING SCALE G... Q6 SC 05/30/16 18:00 06/29/16 17:59 05/31/16 00:06 3 UNITS Pantoprazole Sodium/Syringe (Protonix Inj/ Syringe) 10 ml @ 5 mls/min DAILY@09,21 IV 05/30/16 22:00 06/29/16 21:59 05/31/16 08:37 5 MLS/MIN Clonidine HCl (Lazydaii-Xtp-8 0.2mg/24hr Patch) 1 patch Q7D@2200 TD 05/30/16 22:00 06/29/16 21:59 Miscellaneous (Remove Clonidine Patch) 1 ea Q7D@2159 N/A 06/06/16 21:59 07/06/16 21:58 Miscellaneous Information 1 ea 1 ea QS N/A 05/31/16 00:00 06/30/16 00:00 Hydrocortisone Sodium Succinate 40 mg/Syringe 0.8 ml @ 4 mls/min TID IV 05/30/16 22:00 06/29/16 21:59 05/31/16 13:58 4 MLS/MIN Levothyroxine Sodium/Syringe (Synthroid Inj/ Syringe) 1.875 ml @ 56.25 mls/ hr DAILY@09 IV 05/31/16 09:00 06/30/16 08:59 05/31/16 09:18 56.25 MLS/HR Albuterol/ Ipratropium (Duoneb) 3 ml Q3R INH 05/31/16 09:00 06/30/16 08:59 05/31/16 18:02 3 ML Insulin Aspart (novoLOG ASPART) SLIDING SCALE G... 0200 SC 06/01/16 02:00 07/01/16 01:59 I & O: 24-Hour Column 05/31/16 08:00 Intake Total 4208 ml Output Total 2835 ml Balance 1373 ml Vital Signs: Date Time Temp Pulse Resp B/P Pulse Ox O2 Delivery O2 Flow Rate FiO2 05/31/16 17:50 60 16 97 Nasal Cannula 2.0 05/31/16 17:20 60 156/72 05/31/16 16:00 96 Nasal Cannula 2.0 05/31/16 16:00 36.7 60 14 123/68 94 Nasal Cannula 2.0 05/31/16 14:25 60 16 95 Nasal Cannula 2.0 05/31/16 14:00 60 14 131/66 96 Nasal Cannula 2.0 05/31/16 12:00 94 Nasal Cannula 2.0 05/31/16 12:00 36.6 60 16 115/66 94 Nasal Cannula 2.0 05/31/16 11:43 60 158/57 05/31/16 10:00 60 21 149/55 97 Nasal Cannula 2.0 119/103 05/31/16 08:00 99 Nasal Cannula 2.0 05/31/16 08:00 Nasal Cannula 05/31/16 08:00 36.5 60 22 103/89 99 Nasal Cannula 2.0 102/49 05/31/16 05:56 60 20 131/55 92 Nasal Cannula 2.0 05/31/16 05:56 60 135/55 05/31/16 04:00 98 Nasal Cannula 2.0 05/31/16 04:00 36.7 60 19 120/98 97 Nasal Cannula 2.0 116/66 05/31/16 02:00 60 20 115/94 98 Nasal Cannula 2.0 05/31/16 01:00 63 19 110/89 98 Nasal Cannula 2.0 116/53 05/31/16 00:00 36.7 60 20 114/90 97 Nasal Cannula 2.0 101/76 05/31/16 00:00 98 Nasal Cannula 2.0 05/31/16 00:00 60 101/76 05/30/16 23:00 60 19 98 Nasal Cannula 2.0 116/57 05/30/16 22:00 60 20 100 Nasal Cannula 2.0 112/48 05/30/16 21:00 60 20 120/92 100 Nasal Cannula 2.0 05/30/16 20:00 98 Nasal Cannula 2.0 05/30/16 20:00 36.9 60 20 133/95 98 Nasal Cannula 2.0 101/51 05/30/16 19:30 61 16 111/78 98 Nasal Cannula 2.0 05/30/16 19:07 60 95/57 05/30/16 19:00 60 17 123/61 98 Nasal Cannula 2.0 05/30/16 18:56 36.4 61 19 98 3.0 05/30/16 18:50 61 19 100/76 98 Nasal Cannula 3.0 05/30/16 18:49 61 15 115/38 97 Nasal Cannula 3.0 05/30/16 18:46 60 14 108/47 98 Nasal Cannula 3.0 05/30/16 18:35 60 18 151/107 98 Nasal Cannula 3.0 05/30/16 18:20 60 13 172/95 98 Nasal Cannula 3.0 Laboratory Results: Last 24 Hours Test 05/30/16 19:47 05/30/16 23:52 05/31/16 05:59 05/31/16 06:38 Bedside Glucose 171 mg/dl 206 mg/dl 138 mg/dl White Blood Count 24.23 K/uL Red Blood Count 3.68 M/uL Hemoglobin 11.7 g/dL Hematocrit 36.6 % Mean Corpuscular Volume 99.5 fL Mean Corpuscular Hemoglobin 31.8 pg Mean Corpuscular Hemoglobin Concent 32.0 g/dl Platelet Count 121 K/uL Mean Platelet Volume 9.5 fL RDW Standard Deviation 61.0 fL RDW Coefficient of Variation 17.0 % Neutrophils % (Manual) 91.3 % Lymphocytes % (Manual) 2.6 % Monocytes % (Manual) 6.1 % Neutrophils # (Manual) 22.12 K/uL Total Absolute Neutrophils 22.12 K/uL Lymphocytes # (Manual) 0.63 K/uL Total Absolute Lymphocytes 0.63 K/uL Monocytes # (Manual) 1.48 K/uL Sodium Level 144 mmol/L Potassium Level 4.9 mmol/L Chloride Level 106 mmol/L Carbon Dioxide Level 29 mmol/L Anion Gap 9.0 mmol/L Blood Urea Nitrogen 52 mg/dl Creatinine 1.40 mg/dl Est Creatinine Clear Calc Drug Dose 34.1 ml/min Estimated GFR () 40.7 Estimated GFR (Non- 35.1 BUN/Creatinine Ratio 37.0 Random Glucose 158 mg/dl Calcium Level 8.0 mg/dl Magnesium Level 2.5 mg/dl Test 05/31/16 11:19 05/31/16 16:51 Bedside Glucose 134 mg/dl 112 mg/dl
[2016-05-31] MEDS: CLONIDINE HCL 0.2 MG/24 HR TRANSDERM SYS TD SCH (21:52)
[2016-06-01] VITALS (46 sets, daily range): BP systolic 85–283; BP diastolic 45–219; PULSE 60–128; TEMP 36.6–37; O2SAT 68–100
[2016-06-01] MEDS ORDERED: FUROSEMIDE 40 MG/4 ML VIAL IV STA (01:12)
[2016-06-01] MEDS ORDERED: SODIUM CHLORIDE 0.9% 1000ML 1,000 ML IV SCH (01:15)
[2016-06-01] MEDS ORDERED: INSULIN ASPART 100 UNITS/ML 3 ML PEN SC SCH (02:00)
[2016-06-01] MEDS: ALBUT/IPRATROP 3MG/0.5MG NEB 3 ML VIAL INH SCH ×3 (02:58→09:25)
[2016-06-01] MEDS: AMIODARONE / D5W 200 ML IV SCH ×2 (03:44→16:35)
[2016-06-01] MEDS: INSULIN ASPART 100 UNITS/ML 3 ML PEN SC SCH ×4 (05:38→16:41)
[2016-06-01] MEDS: METOPROLOL TARTRATE 1 MG/ML VIAL IV. SCH ×3 (05:40→16:35)
[2016-06-01] MEDS: ACETAMINOPHEN IV 1,000 MG in EMPTY BAG 0 ML IV SCH ×3 (05:43→22:04)
[2016-06-01 06:46] LABS: HEMATOCRIT 36.3 % (37-47); MEAN CELL VOLUME 103.4 fL (80-100); MEAN CORPUSCULAR HEMOGLOBIN 31.1 pg (25-34); PLATELET COUNT 101 K/uL (130-400); RED BLOOD COUNT 3.51 M/uL (4.2-5.4); WHITE BLOOD COUNT 23.56 K/uL (4.8-10.8)
[2016-06-01 07:19] LABS: BUN/CREATININE RATIO 32.5 (10-20); CALCIUM 8.5 mg/dl (8.5-10.1); CREATININE 1.6 mg/dl (0.60-1.20); POTASSIUM 4.4 mmol/L (3.5-5.1)
[2016-06-01] MEDS: CHECK CLONIDINE PATCH PLACEMENT SCH ×2 (08:00→16:00)
[2016-06-01] MEDS: POLYETHYLENE (MIRALAX) 17 GM PACK PO SCH (09:00)
--- NOTE | 2016-06-01 09:07 | SURGERY PROGRESS NOTE ---
DATE: 06/01/2016 DATE: 06/01/2016. Ms. Robledo was seen today on 06/01/2016. Ms. Robledo looks good. She looks back to her normal self. She is hungry. She is making good urine. Her chest tube output is down. I am quite happy with her appearance. She does have some decreased breath sounds in the left and she is not breathing like I would like as far as coughing and taking deep breaths, but she is better than she was yesterday. Her white count is still elevated at 23,560, but she is on hydrocortisone. Hemoglobin stable at 10.9. Platelet count 101,000. Her sodium is a bit high at 146, potassium 4.4, chloride 106, bicarb is 30, BUN and creatinine are 52 and 1.6 respectively. Her blood sugars have been well controlled. She is on 2 liters of O2 with a sat between 96 and 100%. ASSESSMENT AND PLAN: Postoperative day #2 status post left thoracotomy with a Belsey Jose IV repair for recurrent hiatal hernia status post repair. We are going to keep her in the ICU for 1 more day and check a barium swallow tomorrow to assess her esophagus. If there is no leak and I am happy with its appearance we will remove her NG tube.
--- NOTE | 2016-06-01 09:36 | DIAGNOSTIC IMAGING REPORT ---
CHEST ONE VIEW PORTABLE CLINICAL HISTORY: s/p thoracotomy pain COMPARISON STUDY: 05/31/2016 FINDINGS: Slightly progressive atelectatic change left base. Lungs otherwise are grossly clear. No significant postprocedural pneumothorax. Nasogastric tube within the stomach. Permanent bipolar cardiac pacemaker in good position. IMPRESSION: Slightly progressive left basilar atelectasis. Tubes and lines in good position. No evidence pneumothorax. Electronically signed by: Jose Keyes M.D. 06/01/2016 9:34 AM Dictated Date/Time: 06/01/2016 9:32 AM
--- NOTE | 2016-06-01 09:51 | Pharmacy Progress Note ---
Glycemic Control: Progress Nt Date of Service Jun 01, 2016. Scope Glycemic Pharmacist consulted by Dr Hinton on 05/15/16 for glycemic control and to write orders per [facility] inpatient glycemic control protocol. Objective Accuchecks BSG (last 24hrs): Test 05/31/16 11:19 05/31/16 16:51 06/01/16 00:00 06/01/16 02:08 Bedside Glucose 134 mg/dl (70-90) 112 mg/dl (70-90) 100 mg/dl (70-90) 111 mg/dl (70-90) Test 06/01/16 05:35 06/01/16 06:33 Bedside Glucose 131 mg/dl (70-90) Random Glucose 121 mg/dl (70-99) Laboratory Data (last 24hrs) Test 06/01/16 06:33 Anion Gap 10.0 mmol/L BUN/Creatinine Ratio 32.5 Blood Urea Nitrogen 52 mg/dl Creatinine 1.60 mg/dl Potassium Level 4.4 mmol/L Sodium Level 146 mmol/L White Blood Count 23.56 K/uL Recent Pertinent Medications Outpatient Anti-diabetic Regimen: * glipizide ER 2.5mg PO daily * A1c = 7% 03/2016 The patient is currently receiving: * Basal insulin: Lantus 10 units q AM - hold if BSG is less than 120mg/dL * Correctional Insulin: NovoLog Correction per scale AC/HS Goal Range: Low 140 mg/dL - High 180 mg/dL Correction Factor: 25 mg/dL/unit * Prandial insulin: Per carb ratio of 1 unit per 20 grams CHO consumed Risk Factors for Insulin Resistance: * Steroids: hydrocortisone 40mg IV TID --> 35mg IV TID * Diet: NPO - s/p hernial repair/left thoracotomy Assessment & Plan ASSESSMENT: * ADA & AACE recommend a goal blood sugar range 140-180 mg/dl for the majority of critically ill & non-critically ill patients. However, more stringent targets may be selected in individual cases. 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 * Outpatient control appropriate based on A1c * Currently, experiencing hyperglycemia secondary to BID prednisone * Tighten NovoLog parameters * add additional Accu-checks overnight until euglycemic * Taper insulin doses at steroids decrease * Fasting BSG elevated both yesterday and today * one time dose of Lantus and then reassess need for basal insulin CURRENT: 05/31/16 * BSGs have been labile over the past few days secondary to change in eating habits. * Steroids changed abruptly with trip to the OR - * Ms Robledo very susceptible to steroid induced hyperglycemia (when eating) - continue to monitor * Currently NPO after hernia repair * likely insulin needs will decrease x1-2 days post op for this reason - decrease insulin doses * NovoLog parameters changed by provider this AM * continue with Epifanio's orders at this time and titrate as needed 06/01/16 * Patient has been NPO for >24 hours at this time and insulin requirements have diminished. * Only 10 units of insulin (all Lantus) given on 05/31 and BSGs never above 160mg /dL - Will further hold additional Lantus at this time as BSGs are below goal range currently * Steroids are being tapered * will continue to monitor and adjust insulin regimen as needed (when Pat begins eating) * NPO likely for the remainder of today * continue to hold on all insulin except for correctional if hyperglycemia occurs PLAN FOR INPATIENT GLYCEMIC CONTROL: * Hold Lantus at this time * NovoLog AC and HS or q6H when NPO * Correction factor to 25mg/dL/unit * Carb ratio to 1 unit per 20 g of CHO consumed * Goal range: 140-180mg/dL per ADA recommendation * A1c - current * added to discharge instructions RECOMMENDATIONS FOR DISCHARGE: * If no steroids at d/c - continue home glipizide. * Please note that the plan above was derived based on current level of insulin resistance and hospital stress. These recommendations are appropriate for inpatient admission only. Plan of care upon discharge will need to be reassessed to avoid potential outpatient hypo/hyperglycemia. Thank you.
[2016-06-01] MEDS: HYDROCORTISONE IV SCH ×3 (09:59→20:36)
[2016-06-01] MEDS: PANTOprazole INJ 40 MG in SYRINGE 0 ML IV SCH ×2 (09:59→20:37)
[2016-06-01] MEDS: FLUTICASONE PROPIONATE NA SPR 16 GM BTL SCH (10:00)
[2016-06-01] MEDS: LEVOTHYROXINE SODIUM INJ 37.5 MCG in SYRINGE 0 ML IV SCH (10:00)
[2016-06-01] MEDS: ENOXAPARIN 30 MG/0.3 ML SYR SQ SCH (10:00)
--- NOTE | 2016-06-01 12:29 | Cardiology Follow-Up ---
Subjective General Date of Service: Jun 01, 2016. Chief Complaint: SOB Pt evaluation today including: conversation w/ patient, physical exam, chart review, lab review, review of studies, review of inpatient medication list History of Present Illness Patient feeling better today. Less incisional pain. Denies chest pain or worsening SOB. No LE edema. No cough. Offers no complaints. Allergies Coded Allergies: Penicillins (Verified Allergy, Mild, rash, 05/13/16) Morphine (Verified Allergy, Unknown, UNKNOWN, 05/13/16) Codeine (Verified Adverse Reaction, Unknown, MAKES ME HIGH, 05/13/16) Social History Smoking Status: Never Smoker Hx Tobacco Use In Past Year?: No Hx Alcohol Use - Type And Amou: No Hx Substance Use - Type And Am: No Problem List Medical Problems: (1) Abdominal pain Status: Acute (2) Chest pain Status: Acute (3) CHF (congestive heart failure) Status: Acute (4) Chronic obstructive pulmonary disease Status: Acute (5) Constipation Status: Acute (6) Cough Status: Acute (7) Hypoxia Status: Acute (8) Left sided chest pain Status: Acute (9) Pneumonia Status: Acute (10) Shortness of breath Status: Acute (11) Symptomatic bradycardia Status: Acute (12) Traumatic intracranial hemorrhage Status: Acute Review of Systems Respiratory: No cough, No dyspnea at rest, No hemoptysis, No shortness of breath, No sputum, No wheezing Cardiac: No PND, No chest pain, No edema, No orthopnea, No palpitations Physical Exam Vital Signs Last Vital Signs Documentation Date Time Temp Pulse Resp B/P Pulse Ox O2 Delivery O2 Flow Rate FiO2 06/01/16 12:13 119 177/136 06/01/16 11:00 20 97 Nasal Cannula 2.0 06/01/16 08:00 36.7 Physical Exam Constitutional: General Apperance: overweight Level of Distress: acutely ill, chronically ill Psychiatric: Orientation: to time, to place, to person Head: normocephalic Eyes: Pupils: PERRLA Neck: supple Lungs: Auscultation: no wheezing, no rales/crackles, deminished air movement ( anterior chest) Cardiovascular: Heart Auscultation: RRR, normal S1, normal S2, II/ SAMANTHA Abdomen: Bowel Sounds: normal Inspection & Palpation: soft, no tenderness, guarding & rebound Extremities: no edema, no clubbing Neurologic: Gait & Station: pertinent finding (No focal motor deficit) Cranial Nerves: grossly intact Assessment and Plan Assessment and Plan FINAL IMPRESSION: 1. S/P left thoracotomy and HH repair yesterday, small pneumo with chest tube in place 2. Chronic compensated diastolic heart failure. 3. 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 No evidence of infectious endocarditis, anticoagulation contraindicated. 4. Mild aortic stenosis with moderate regurgitation. 5. Sick sinus syndrome, status post pacemaker placement - telemetry demonstrating atrial paced rhythm. 6. Paroxysmal atrial fibrillation - current NSR. 9. Chronic kidney disease - stable PLAN AND RECOMMENDATIONS: Monitor I+O's and fluid status closely. PO meds on hold, including furosemide. Continue PRN IV furosemide to maintain fluid status. Continue IV amio and IV metoprolol to maintain NSR. Will resume PO cardiac meds when able. Discussed with Dr. Blancas. Will follow. Laboratory Results Last 24 Hours Test 05/31/16 16:51 06/01/16 00:00 06/01/16 02:08 06/01/16 05:35 Bedside Glucose 112 mg/dl 100 mg/dl 111 mg/dl 131 mg/dl Test 06/01/16 06:33 White Blood Count 23.56 K/uL Red Blood Count 3.51 M/uL Hemoglobin 10.9 g/dL Hematocrit 36.3 % Mean Corpuscular Volume 103.4 fL Mean Corpuscular Hemoglobin 31.1 pg Mean Corpuscular Hemoglobin Concent 30.0 g/dl RDW Standard Deviation 65.9 fL RDW Coefficient of Variation 17.4 % Platelet Count 101 K/uL Mean Platelet Volume 10.0 fL Sodium Level 146 mmol/L Potassium Level 4.4 mmol/L Chloride Level 106 mmol/L Carbon Dioxide Level 30 mmol/L Anion Gap 10.0 mmol/L Blood Urea Nitrogen 52 mg/dl Creatinine 1.60 mg/dl Est Creatinine Clear Calc Drug Dose 29.3 ml/min Estimated GFR () 34.7 Estimated GFR (Non- 29.9 BUN/Creatinine Ratio 32.5 Random Glucose 121 mg/dl Calcium Level 8.5 mg/dl
[2016-06-01] MEDS ORDERED: METOPROLOL TARTRATE 1 MG/ML VIAL ONE (13:05)
[2016-06-01] MEDS: HYDROmorphone INJ 1 MG/ML SYR IV PRN (13:13)
[2016-06-01] MEDS ORDERED: METOPROLOL TARTRATE 1 MG/ML VIAL IV ONE (13:15)
[2016-06-01] MEDS: SODIUM CHLORIDE 0.45% 1000ML 1,000 ML IV SCH (13:16)
[2016-06-01] MEDS: HydrALAZINE HCL 20 MG/ML VIAL IV. PRN (13:51)
--- NOTE | 2016-06-01 13:52 | CARDIOLOGY PROGRESS NOTE ---
DATE: 06/01/2016 DATE: 06/01/2016. The patient seen and examined. Chart, medications, telemetry reviewed. SUBJECTIVE: Refer to complete note earlier this morning by Tracy Greene. The patient this morning fell out of bed for nearly 5 hours but did have hypertensive blood pressure and tachycardic response with the patient lapsing transiently into atrial fibrillation. OBJECTIVE: NECK: Thick. There is no jugular venous distention. LUNGS: Reveal diminished breath sounds. Chest tube remains in place with mildly diminished breath sounds at the left base. CARDIOVASCULAR EXAMINATION: Irregular, irregular. ABDOMEN: Soft, mildly distended. EXTREMITIES: Without edema. LABORATORY DATA: Sodium is 4.4, chloride is 106, BUN is 52, creatinine is 1.6. White cell count is 23, hemoglobin is 10.9. IMPRESSION: An 80-year-old female with complex postoperative issues as described lapsed into atrial fibrillation this morning. PLAN: IV metoprolol 5 mg will be ordered, amiodarone continued IV. Will increase routine metoprolol dosing to 5 mg IV q. 6.
[2016-06-01] MEDS ORDERED: NURSING VERBAL MED ORDER ONE (14:15)
[2016-06-01] MEDS ORDERED: CLONIDINE HCL 0.1 MG/24 HR TRANSDERM SYS TD SCH (14:30)
[2016-06-01] MEDS ORDERED: DILTIAZEM HCL 5 MG/ML 5 ML VIAL IV SCH (14:30)
[2016-06-01] MEDS ORDERED: DILTIAZEM HCL INJ 125 MG in DEXTROSE 5% 100ML IV PRN (14:30)
[2016-06-01] MEDS ORDERED: NORMOSOL R 500 ML IV SCH (14:30)
[2016-06-01] MEDS ORDERED: LABETALOL HCL IV PRN (14:45)
[2016-06-01] MEDS ORDERED: DEXTROSE 5% IV PRN (14:45)
--- NOTE | 2016-06-01 19:29 | Critical Care Progress Note ---
Critical Care Progress Note Date of Service Jun 01, 2016. Attending Dr. Blake Subjective 80 y/o F , resident of 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 She was been treated for acute hypoxic resp failure secondary to COPD +/- CHF exacerbation , HTN . she has a h/o GERD with a hiatal hernia and had uncontrolled belching for which she was scheduled for a laparoscopic hernia repair by thoracic surgery She was admitted to the ICU after a laparoscopic hiatal hernia surgery doing well. denies any CP/SOB, palpitations. pain is well controlled Objective GENERAL: Patient is in no acute distress. HEENT: No acute trauma, normocephalic atraumatic, mucous membranes moist, no nasal congestion, no scleral icterus. NECK: No stridor, no adenopathy, no meningismus, trachea is midline. LUNGS: wheezes, rhonchi, left sided chest tube with serosanguineous drainage HEART: SAMANTHA, regular rate and rhythm. ABDOMEN: Soft, nontender, bowel sounds positive EXTREMITIES: No cyanosis , mild edema, full range of motion of all the joints without pain or difficulty NEUROLOGIC: Oriented x 3, no acute motor or sensory deficits, no focal weakness. SKIN: No rash, no jaundice, no diaphoresis. Assessment & Plan 80 y/o F , resident of 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 She was been treated for acute hypoxic resp failure secondary to COPD +/- CHF exacerbation Postoperative day #2 status post left thoracotomy with Belsey Jose IV repair. Neuro: - pain control with Dilaudid 0.5 mg q3h PRN, IV acetaminophen Resp: Acute hypoxic resp failure ; COPD +/- CHF exacerbation: - was hypoxic on arrival with Sao2 at 87 - currently on 2L NC - has been receiving Prednisone 20 mg BID since admission- converted to hydrocortisone 35 mg TID - Continue albuterol, Xopenex PRN - Duoneb q3h scheduled and q2h PRN - Singulair and Mucinex currently held CVS: - CHF exacerbation: Resp failure likely contributed by CHF exacerbation - Strict Is and Os - daily weights - Lasix 40 mg IV h/o A fib: currently in NSR - [id number] vasc score of 6 - Amiodarone drip started postop - No AC since h/o subdural hematoma after fall SSS s/p pacemaker stable HTN: - On Clonidine, hydralazine, metoprolol, held as she is NPO - ACEI/ARB caused hyperkalemia and have been d/c - Clonidine patch 0.2 mg - Lopressor 5 mg Q6H - hydralazine PRN MV anamoly: stable had TTE and SEJAL Renal : RACHELL: Cr baseline 1.2-1.3, today 1.6 Monitor Cr - 1/2 NS at 75 mls/hr GI/FEN: GERD/hiatal hernia: s/p hernia repair - NPO - Protonix 40 mg BID Constipation: - senna - currently held Endocrine: - Diabetes: - Glipizide held - ISS Hypothyroidism: - levothyroxine 50 mcg oral switched to 37.5 mcg IV Psych: Depression: - sertraline- currently held Access: Peripheral IV: RUE and Left UE DVT prophylaxis: SCDs DNR Resident Physician Supervision Note: Dr. Arash Soto was resident physician during care of patient. I separately evaluated patient and did history and exam. I discussed the case with the resident and generally agree with the findings and plan. Patient eventually converted into atrial fibrillation with rapid ventricular response, continuing amiodarone infusion, added beta filipe for rate control. Documented By: Dave Blake DO Data Medications: Current Inpatient Medications Medications (Trade) Dose Ordered Sig/Srinivas Route Start Time Stop Time Status Last Admin Dose Admin Acetaminophen (Tylenol Tab) 650 mg Q4H PRN PO 05/13/16 18:30 06/12/16 18:29 Future Hold 05/27/16 12:30 650 MG Amiodarone HCl (Cordarone Tab) 200 mg DAILY PO 05/14/16 09:00 06/13/16 08:59 Future Hold 05/30/16 08:26 200 MG Atorvastatin Calcium (Lipitor Tab) 20 mg DAILY PO 05/14/16 09:00 06/13/16 08:59 Future Hold 05/29/16 11:53 20 MG Clonidine HCl (Catapres Tab) 0.1 mg BID PO 05/13/16 21:00 06/12/16 20:59 Future Hold 05/29/16 11:53 0.1 MG Fluticasone Propionate (Flonase Nasal Newcomb) 2 sprays DAILY NA 05/14/16 09:00 06/13/16 08:59 06/01/16 10:00 2 SPRAYS Gabapentin (Neurontin Cap) 100 mg TID PO 05/13/16 21:00 06/12/16 20:59 Future Hold 05/30/16 08:26 100 MG Guaifenesin (Mucinex Contr Rel Tab) 600 mg DAILY PO 05/14/16 09:00 06/13/16 08:59 Future Hold 05/29/16 11:53 600 MG Levothyroxine Sodium (Synthroid Tab) 50 mcg DAILYBB PO 05/14/16 06:00 06/13/16 05:59 Future Hold 05/30/16 06:18 50 MCG Mirtazapine (Remeron Tab) 15 mg HS PO 05/13/16 21:00 06/12/16 20:59 Future Hold 05/29/16 21:01 15 MG Montelukast Sodium (Singulair Tab) 10 mg HS PO 05/14/16 21:00 06/13/16 20:59 Future Hold 05/29/16 21:01 10 MG Ranitidine HCl (zANTac TAB) 150 mg BID PO 05/13/16 21:00 06/12/16 20:59 Future Hold 05/29/16 21:01 150 MG Senna/Docusate Sodium (Senokot S Tab) 2 tab BID PO 05/13/16 21:00 06/12/16 20:59 Future Hold 05/29/16 21:01 2 TAB Sertraline HCl (Zoloft Tab) 100 mg DAILY PO 05/14/16 09:00 06/13/16 08:59 Future Hold 05/30/16 09:51 100 MG Tramadol HCl (Ultram Tab) 50 mg Q6H PRN PO 05/13/16 19:00 06/12/16 18:59 Future Hold 05/29/16 19:41 50 MG Miscellaneous Information (Order Awaiting Action) 1 ea QS N/A 05/14/16 00:00 06/13/16 00:00 Ferrous Sulfate (Feosol Tab) 325 mg DAILY PO 05/14/16 09:00 06/13/16 08:59 Future Hold 05/29/16 11:53 325 MG Miscellaneous Information (Order Awaiting Action) 1 ea QS N/A 05/14/16 00:00 06/13/16 00:00 Miscellaneous Information (Order Awaiting Action) 1 ea QS N/A 05/14/16 00:00 06/13/16 00:00 Polyethylene (Miralax Powder Packet) 17 gm DAILY PRN PO 05/13/16 20:15 06/12/16 20:14 Glucose (Glucose 40% Gel) 15-30 GRAMS 15 GRAMS... UD PRN PO 05/13/16 19:00 06/12/16 18:59 Glucose (Glucose Chew Tab) 4-8 Tablets 4 Tabl... UD PRN PO 05/13/16 19:00 06/12/16 18:59 Dextrose (Dextrose 50% 50ML Syringe) 25-50ML OF 50% DW IV FOR... UD PRN IV 05/13/16 19:00 06/12/16 18:59 Glucagon (Glucagon Inj) 1 mg UD PRN SQ 05/13/16 19:00 06/12/16 18:59 Mineral Oil (Fleet Oil Enema) 133 ml DAILY PRN OK 05/14/16 13:30 06/13/16 13:29 Miscellaneous Information (Consult Glycemic Management Pharmacy) 1 ea UD PRN N/A 05/15/16 08:45 06/14/16 08:44 Polyethylene (Miralax Powder Packet) 17 gm DAILY PO 05/16/16 09:00 06/15/16 08:59 05/19/16 08:23 17 GM Hydralazine HCl (Apresoline Tab) 50 mg TID PO 05/18/16 14:00 06/17/16 13:59 Future Hold 05/29/16 14:35 50 MG Furosemide (Lasix Tab) 40 mg QAM PO 05/18/16 09:00 06/17/16 08:59 Future Hold 05/29/16 11:53 40 MG Isosorbide Dinitrate (Isordil Tab) 20 mg TID@0700,1200,1700 PO 05/20/16 12:00 06/19/16 11:59 Future Hold 05/30/16 08:25 20 MG Ipratropium [place] (Atrovent 0.02% 0.5MG/2.5ML Neb) 0.5 mg Q6R PRN INH 05/26/16 15:15 06/25/16 15:14 Levalbuterol (Xopenex 1.25MG/ 0.5ML Neb) 1.25 mg Q6R PRN INH 05/26/16 15:15 06/25/16 15:14 Hydralazine HCl (HydrALAZINE INJ) 5 mg Q6 PRN IV. 05/28/16 13:45 06/27/16 13:44 06/01/16 13:51 5 MG Ondansetron HCl (Zofran Inj) 4 mg Q4H PRN IV 05/30/16 16:45 06/29/16 16:44 Hydromorphone HCl 0.5 mg 0.5 mg Q3H PRN IV 05/30/16 16:45 06/13/16 16:44 06/01/16 13:13 0.5 MG Acetaminophen 1000 mg/Empty Bag 100 ml @ 400 mls/hr Q8@0600,1400,2200 IV 05/30/16 22:00 06/29/16 21:59 06/01/16 13:56 400 MLS/HR Amiodarone HCL/ Dextrose (Nexterone / D5w) 200 ml @ 16.7 mls/hr [id number] IV 05/30/16 17:00 06/29/16 16:59 06/01/16 16:35 16.7 MLS/HR Insulin Aspart SLIDING SCALE G... Q6 SC 05/30/16 18:00 06/29/16 17:59 05/31/16 00:06 3 UNITS Pantoprazole Sodium 40 mg/ Syringe 10 ml @ 5 mls/min DAILY@ IV 05/30/16 22:00 06/29/16 21:59 06/01/16 09:59 5 MLS/MIN Levothyroxine Sodium 37.5 mcg/ Syringe 1.875 ml @ 56.25 mls/ hr DAILY@09 IV 05/31/16 09:00 06/30/16 08:59 06/01/16 10:00 56.25 MLS/HR Hydrocortisone Sodium Succinate/ Syringe (Solu-Cortef IV/ Syringe) 0.7 ml @ 4 mls/min TID IV 06/01/16 09:00 07/01/16 08:59 06/01/16 13:55 4 MLS/MIN Enoxaparin Sodium (Lovenox Inj) 30 mg DAILY SQ 06/01/16 09:00 07/01/16 08:59 06/01/16 10:00 30 MG Albuterol/ Ipratropium 3 ml 3 ml Q2H PRN INH 06/01/16 09:30 07/01/16 09:29 Sodium Chloride (1/2 Nss 1000ml) 1,000 ml @ 75 mls/hr [id number] IV 06/01/16 13:00 07/01/16 12:59 06/01/16 13:16 75 MLS/HR Metoprolol Tartrate 5 mg 5 mg Q6 IV. 06/01/16 18:00 07/01/16 17:59 Diltiazem HCl/ Dextrose (Cardizem Inj/D5 100ml) 125 ml @ 0 mls/hr Q0M PRN IV 06/01/16 14:30 07/01/16 14:29 Future Hold 06/01/16 14:35 5 MLS/HR Clonidine HCl (Wpdoayxp-Yfa-0 0.1mg/24hr Patch) 1 patch CQWK TD 06/01/16 14:30 07/01/16 14:29 Miscellaneous (Remove Clonidine Patch) 1 ea CQWK N/A 06/01/16 14:29 07/01/16 14:28 Miscellaneous Information 1 ea 1 ea QS N/A 06/01/16 16:00 07/01/16 15:59 06/01/16 16:00 1 EA Labetalol HCl/ Dextrose (Normodyne IV/D5 250ml) 300 ml @ 0 mls/hr Q0M PRN IV 06/01/16 14:45 07/01/16 14:44 Insulin Glargine (Lantus Solostar Pen) GIVE 0 UNITS IF BSG... TODAY@2100 SC 06/01/16 21:00 06/01/16 22:30 I & O: 24-Hour Column 06/01/16 08:00 Intake Total 2116 ml Output Total 2300 ml Balance -184 ml Vital Signs: Date Time Temp Pulse Resp B/P Pulse Ox O2 Delivery O2 Flow Rate FiO2 06/01/16 18:00 113 20 127/76 97 06/01/16 16:35 116 92/71 2/2/17 16:00 97 Nasal Cannula 2.0 06/01/16 15:28 115 15 107/73 97 06/01/16 15:15 116 23 97 06/01/16 15:13 118 18 94/71 97 06/01/16 15:13 118 18 94/71 97 06/01/16 15:00 126 19 90/76 96 06/01/16 15:00 126 19 90/76 96 06/01/16 14:45 125 16 97 06/01/16 14:45 125 16 97 06/01/16 14:44 113 21 93/60 97 06/01/16 14:44 113 21 93/60 97 06/01/16 14:30 112 21 151/136 97 06/01/16 14:30 112 21 151/136 97 06/01/16 14:16 112 24 283/213 97 06/01/16 14:15 120 20 97 06/01/16 14:13 110 18 249/219 97 06/01/16 14:02 125 19 238/191 97 06/01/16 14:00 119 20 97 06/01/16 13:45 128 25 97 06/01/16 13:44 127 18 209/193 97 06/01/16 13:30 116 22 98 06/01/16 13:29 111 21 183/161 98 06/01/16 13:15 116 19 99 06/01/16 13:12 144 177/135 06/01/16 13:11 141 177/135 06/01/16 13:00 111 24 164/58 06/01/16 12:45 123 24 99 06/01/16 12:30 117 25 99 06/01/16 12:13 119 177/136 06/01/16 12:00 97 Nasal Cannula 2.0 06/01/16 11:00 120 20 150/51 97 Nasal Cannula 2.0 06/01/16 09:05 66 16 100 Nasal Cannula 2.0 06/01/16 08:00 36.7 61 20 158/45 99 Nasal Cannula 2.0 06/01/16 08:00 Nasal Cannula 06/01/16 08:00 68 Nasal Cannula 2.0 06/01/16 06:07 60 16 96 Nasal Cannula 2.0 06/01/16 06:00 60 19 128/78 100 Nasal Cannula 2.0 06/01/16 05:40 60 175/72 06/01/16 04:00 96 Nasal Cannula 20.0 06/01/16 04:00 36.7 63 16 165/52 96 Nasal Cannula 2.0 06/01/16 02:58 63 16 98 Nasal Cannula 2.0 06/01/16 02:00 61 15 168/50 96 Nasal Cannula 2.0 06/01/16 00:01 36.7 15 163/56 94 Nasal Cannula 2.0 05/31/16 23:59 96 Nasal Cannula 20.0 05/31/16 23:48 60 179/61 05/31/16 23:30 62 16 98 Nasal Cannula 2.0 05/31/16 22:00 19 150/60 97 Nasal Cannula 2.0 05/31/16 20:00 36.8 22 163/71 98 Nasal Cannula 2.0 05/31/16 20:00 96 Nasal Cannula 20.0 05/31/16 19:48 60 16 98 Nasal Cannula 2.0 Laboratory Results: Last 24 Hours Test 06/01/16 00:00 06/01/16 02:08 06/01/16 05:35 06/01/16 06:33 Bedside Glucose 100 mg/dl 111 mg/dl 131 mg/dl White Blood Count 23.56 K/uL Red Blood Count 3.51 M/uL Hemoglobin 10.9 g/dL Hematocrit 36.3 % Mean Corpuscular Volume 103.4 fL Mean Corpuscular Hemoglobin 31.1 pg Mean Corpuscular Hemoglobin Concent 30.0 g/dl RDW Standard Deviation 65.9 fL RDW Coefficient of Variation 17.4 % Platelet Count 101 K/uL Mean Platelet Volume 10.0 fL Sodium Level 146 mmol/L Potassium Level 4.4 mmol/L Chloride Level 106 mmol/L Carbon Dioxide Level 30 mmol/L Anion Gap 10.0 mmol/L Blood Urea Nitrogen 52 mg/dl Creatinine 1.60 mg/dl Est Creatinine Clear Calc Drug Dose 29.3 ml/min Estimated GFR () 34.7 Estimated GFR (Non- 29.9 BUN/Creatinine Ratio 32.5 Random Glucose 121 mg/dl Calcium Level 8.5 mg/dl Test 06/01/16 16:40 Bedside Glucose 165 mg/dl
--- NOTE | 2016-06-01 19:39 | Progress Note ---
Internal Med Progress Note Date of Service: Jun 01, 2016. Provider Documentation: SUBJECTIVE: s/p surgery 05/30/16 for hiatal hernia afebrile resting comfortably says pain is better denies sob or cough OBJECTIVE: Vital Signs-as noted below Exam: General-alert and awake. seems in pain ENT-normal hearing Neck-no neck masses Lungs-cta b/l no wheezing or crackles s/p left sided chest tube Heart-s1 and s2 heard regular rate and rhythm no murmurs Abdomen-soft bowel sounds sluggish non tender no distension Extremities-no erythema Neuro-alert and awake moves extremities Lab data as noted below. ASSESSMENT & PLAN: 80 yoF with significant heart history and valve issues admitted for increased work of breathing 2/2 CHF exacerbation. Belching severe mostly from hiatal hernia s/p status post left thoracotomy with Belsey Jose IV repair s/p surgery today 05/30/16 close monitor in ICU. on NG tube management as per ct surgery critical care on board. stable so far Hx of a .fib currently on amiodarone drip as patient is npo. HTN up and down on iv Lopressor iv hydralazine prn plan for labetalol drip if gets uncontrolled. Hospital course so far: Intial presentation with ACUTE HYPOXIC RESPIRATORY FAILURE, LIKELY MULTIFACTORIAL DUE TO ACUTE DIASTOLIC CHF AND/OR COPD EXACERBATION Presented with cough and SOB x 3 days; influenza outbreak at [facility] however patient has been on prophylactic Tamilfu since 05/05 87% on room air on arrival, improved with oxygen 2L via NC Treated with steroids, Lasix and abx echo no change from previous cardiology on board Cardiology started on lower dose Losartan which was stopped secondary to arf and hyperkalemia requiring oxygen while sleeping on nocturna pulse ox study restarted Lasix 40mg daily. pt/ot nebs prn currently stable will monitor MITRAL VALVE ANOMALY echo-unchanged. cardiology on board stable CONSTIPATION KU fecal retention was on lactulose stopped lactulose secondary to abdominal gas currently on miralx daily had enema currently s/p surgery Hyperkalemia k 5.3 losartan stopped had a dose of Kayexalate resolved ATRIAL FIBRILLATION on amiodarone and metoprolol rate controlled Not anticoagulated due to hx of hemorrhagic pericardial effusion and subdural hematoma s/p fall will monitor post op currently on amiodarone drip SSS S/P PACER no acute issues HTN on clonidine, hydralazine, and metoprolol hydralazine dose increased losartan stopped secondary to ARF and hyperkalemia BP up and down iv hydralazine prn will monitor ARF' baseline cr 1.2 to 1.3 cr 1.4 today will f/u labs. DM hgb a1c 7.0 03/2016 oral agents on hold. SSI while hospitalized will monitor GERD, HIATAL HERNIA on PPI/H2 filipe HYPOTHYROIDISM on levothyroxine DEPRESSION on sertraline DVT PROPHYLAXIS SCDs due to hx of hemorrhagic pericardial effusion and subdural hematoma CODE STATUS DNR DISPO: close monitor in ICU Vital Signs: Date Time Temp Pulse Resp B/P Pulse Ox O2 Delivery O2 Flow Rate FiO2 06/01/16 18:00 113 20 127/76 97 06/01/16 16:35 116 92/71 06/01/16 16:00 97 Nasal Cannula 2.0 06/01/16 15:28 115 15 107/73 97 06/01/16 15:15 116 23 97 06/01/16 15:13 118 18 94/71 97 06/01/16 15:13 118 18 94/71 97 06/01/16 15:00 126 19 90/76 96 06/01/16 15:00 126 19 90/76 96 06/01/16 14:45 125 16 97 06/01/16 14:45 125 16 97 06/01/16 14:44 113 21 93/60 97 06/01/16 14:44 113 21 93/60 97 06/01/16 14:30 112 21 151/136 97 06/01/16 14:30 112 21 151/136 97 06/01/16 14:16 112 24 283/213 97 06/01/16 14:15 120 20 97 06/01/16 14:13 110 18 249/219 97 06/01/16 14:02 125 19 238/191 97 06/01/16 14:00 119 20 97 06/01/16 13:45 128 25 97 06/01/16 13:44 127 18 209/193 97 06/01/16 13:30 116 22 98 06/01/16 13:29 111 21 183/161 98 06/01/16 13:15 116 19 99 06/01/16 13:12 144 177/135 06/01/16 13:11 141 177/135 06/01/16 13:00 111 24 164/58 06/01/16 12:45 123 24 99 06/01/16 12:30 117 25 99 06/01/16 12:13 119 177/136 06/01/16 12:00 97 Nasal Cannula 2.0 06/01/16 11:00 120 20 150/51 97 Nasal Cannula 2.0 06/01/16 09:05 66 16 100 Nasal Cannula 2.0 06/01/16 08:00 36.7 61 20 158/45 99 Nasal Cannula 2.0 06/01/16 08:00 Nasal Cannula 06/01/16 08:00 68 Nasal Cannula 2.0 06/01/16 06:07 60 16 96 Nasal Cannula 2.0 06/01/16 06:00 60 19 128/78 100 Nasal Cannula 2.0 06/01/16 05:40 60 175/72 06/01/16 04:00 96 Nasal Cannula 20.0 06/01/16 04:00 36.7 63 16 165/52 96 Nasal Cannula 2.0 06/01/16 02:58 63 16 98 Nasal Cannula 2.0 06/01/16 02:00 61 15 168/50 96 Nasal Cannula 2.0 06/01/16 00:01 36.7 15 163/56 94 Nasal Cannula 2.0 05/31/16 23:59 96 Nasal Cannula 20.0 05/31/16 23:48 60 179/61 05/31/16 23:30 62 16 98 Nasal Cannula 2.0 05/31/16 22:00 19 150/60 97 Nasal Cannula 2.0 05/31/16 20:00 36.8 22 163/71 98 Nasal Cannula 2.0 05/31/16 20:00 96 Nasal Cannula 20.0 05/31/16 19:48 60 16 98 Nasal Cannula 2.0 Lab Results: Results Past 24 Hours Test 06/01/16 00:00 06/01/16 02:08 06/01/16 05:35 06/01/16 06:33 Range/Units Bedside Glucose 100 111 131 70-90 mg/dl White Blood Count 23.56 4.8-10.8 K/uL Red Blood Count 3.51 4.2-5.4 M/uL Hemoglobin 10.9 12.0-16.0 g/dL Hematocrit 36.3 37-47 % Mean Corpuscular Volume 103.4 80-100 fL Mean Corpuscular Hemoglobin 31.1 25-34 pg Mean Corpuscular Hemoglobin Concent 30.0 32-36 g/dl RDW Standard Deviation 65.9 36.4-46.3 fL RDW Coefficient of Variation 17.4 11.5-14.5 % Platelet Count 101 130-400 K/uL Mean Platelet Volume 10.0 7.4-10.4 fL Sodium Level 146 136-145 mmol/L Potassium Level 4.4 3.5-5.1 mmol/L Chloride Level 106 98-107 mmol/L Carbon Dioxide Level 30 21-32 mmol/L Anion Gap 10.0 3-11 mmol/L Blood Urea Nitrogen 52 7-18 mg/dl Creatinine 1.60 0.60-1.20 mg/dl Est Creatinine Clear Calc Drug Dose 29.3 ml/min Estimated GFR () 34.7 Estimated GFR (Non- 29.9 BUN/Creatinine Ratio 32.5 10-20 Random Glucose 121 70-99 mg/dl Calcium Level 8.5 8.5-10.1 mg/dl Test 06/01/16 16:40 Range/Units Bedside Glucose 165 70-90 mg/dl
[2016-06-01] MEDS ORDERED: INSULIN GLARGINE SOLOSTAR 100 UNITS/ML 3 ML PEN SC SCH (21:00)
[2016-06-02] VITALS (32 sets, daily range): BP systolic 83–187; BP diastolic 38–82; PULSE 60–119; TEMP 37–37.2; O2SAT 89–100
[2016-06-02] MEDS: CHECK CLONIDINE PATCH PLACEMENT SCH ×4 (00:22→23:54)
[2016-06-02] MEDS: METOPROLOL TARTRATE 1 MG/ML VIAL IV. SCH ×5 (00:22→23:53)
[2016-06-02] MEDS: INSULIN ASPART 100 UNITS/ML 3 ML PEN SC SCH ×5 (00:24→23:53)
[2016-06-02] MEDS: HYDROmorphone INJ 1 MG/ML SYR IV PRN ×2 (01:54→21:13)
[2016-06-02] MEDS: AMIODARONE / D5W 200 ML IV SCH ×3 (01:55→19:29)
[2016-06-02] MEDS: SODIUM CHLORIDE 0.45% 1000ML 1,000 ML IV SCH ×3 (03:57→23:55)
[2016-06-02] MEDS: ACETAMINOPHEN IV 1,000 MG in EMPTY BAG 0 ML IV SCH ×3 (05:49→21:13)
[2016-06-02 06:49] LABS: BUN/CREATININE RATIO 38.2 (10-20); CALCIUM 8.9 mg/dl (8.5-10.1); CREATININE 1.3 mg/dl (0.60-1.20)
--- NOTE | 2016-06-02 09:10 | DIAGNOSTIC IMAGING REPORT ---
SINGLE CONTRAST ESOPHAGRAM CLINICAL HISTORY: Follow-up status post hiatal hernia repair. COMPARISON STUDY: Esophagram dated 04/01/2015. Chest CT dated 05/23/2016/. TECHNIQUE: A single contrast esophagram is performed by having the patient perform several sips of Optiray contrast. Multiple spot images of the esophagus are acquired prone. FINDINGS: An enteric tube is in place. The patient swallowed Optiray without difficulty. The mucosal pattern is grossly normal. There is no evidence of intrinsic or extrinsic mass lesion. No aspiration was seen. There is pooling of contrast in the distal esophagus with delayed passage in the stomach. The gastroesophageal junction appears to below the diaphragm. No extraluminal contrast was identified. A drain is noted in the left upper quadrant. Pacemaker leads are noted. Fluoroscopy time: 1.2 minutes. Fluoroscopic images: 12 IMPRESSION: 1. There was pooling of contrast in the distal esophagus with delayed passage into the stomach. This is likely related to postoperative edema. 2. 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 Electronically signed by: Hayes Pena M.D. 06/02/2016 9:09 AM Dictated Date/Time: 06/02/2016 9:01 AM
[2016-06-02] MEDS: ALBUT/IPRATROP 3MG/0.5MG NEB 3 ML VIAL INH PRN (09:30)
[2016-06-02 10:15] LABS: BASO % 0.1 %; BASO ABS # 0.02 K/uL (0-0.2); COMPLETE YES; HEMATOCRIT 33.6 % (37-47); IG% 0.6 %; LYMPH % 4.6 %; LYMPH ABS # 1.02 K/uL (1.2-3.4); MEAN CELL VOLUME 100.9 fL (80-100); MEAN CORPUSCULAR HEMOGLOBIN 31.5 pg (25-34); MEAN CORPUSCULAR HGB CONC 31.3 g/dl (32-36); MEAN PLATELET VOLUME 10.6 fL (7.4-10.4); NEUT % 89.7 %; PLATELET COUNT 87 K/uL (130-400); RED BLOOD COUNT 3.33 M/uL (4.2-5.4); WHITE BLOOD COUNT 22.08 K/uL (4.8-10.8)
[2016-06-02] MEDS: LEVOTHYROXINE SODIUM INJ 37.5 MCG in SYRINGE 0 ML IV SCH (10:22)
[2016-06-02] MEDS: HYDROCORTISONE IV SCH ×3 (10:22→21:12)
[2016-06-02] MEDS: PANTOprazole INJ 40 MG in SYRINGE 0 ML IV SCH ×2 (10:22→21:12)
[2016-06-02] MEDS: FLUTICASONE PROPIONATE NA SPR 16 GM BTL SCH (10:23)
[2016-06-02] MEDS: POLYETHYLENE (MIRALAX) 17 GM PACK PO SCH (10:23)
[2016-06-02] MEDS: ENOXAPARIN 30 MG/0.3 ML SYR SQ SCH (10:24)
--- NOTE | 2016-06-02 10:25 | DIAGNOSTIC IMAGING REPORT ---
CHEST ONE VIEW PORTABLE CLINICAL HISTORY: Postop thoracotomy COMPARISON STUDY: June 01, 2016 FINDINGS: There is a nasogastric tube within the stomach. The heart is mildly enlarged. There are bibasal airspace opacities likely atelectatic. There is a bipolar left subclavian dual-chamber central venous pacemaker. There is improving pulmonary vascular congestion.[ IMPRESSION: Improving pulmonary vascular congestion. Cardiomegaly and bibasal airspace opacities, likely atelectatic. Electronically signed by: Yvan Gupta M.D. 06/02/2016 10:24 AM Dictated Date/Time: 06/02/2016 10:23 AM
--- NOTE | 2016-06-02 12:56 | DIAGNOSTIC IMAGING REPORT ---
CHEST ONE VIEW PORTABLE CLINICAL HISTORY: Chest x-ray for PICC catheter placement. COMPARISON STUDY: June 02, 2016 FINDINGS: The nasogastric tube has been removed. There is a left subclavian dual-chamber central venous pacemaker present. There is a right-sided PICC catheter the tip of which projects over the atrial caval junction. The heart is mildly enlarged. There is blunting of both lateral costophrenic angles consistent with small effusions. There is elevation of the interstitium consistent with pulmonary vascular congestion. This appears progressive.[ There is a persistent left basilar airspace opacity. There is a nodular opacity within the left suprahilar region. IMPRESSION: 1. Interval removal of the nasogastric tube 2. Worsening pulmonary vascular congestion with left suprahilar left basilar airspace opacities 3. Interval placement of a right-sided PICC catheter. The tip projects over the atriocaval junction 4. Suspected small pleural effusions Electronically signed by: Yvan Gupta M.D. 06/02/2016 12:54 PM Dictated Date/Time: 06/02/2016 12:52 PM
[2016-06-02 14:19] LABS: CALCIUM 8.7 mg/dl (8.5-10.1); CREATININE 1.2 mg/dl (0.60-1.20); POTASSIUM 3.5 mmol/L (3.5-5.1)
--- NOTE | 2016-06-02 14:41 | Cardiology Follow-Up ---
Subjective General Date of Service: Jun 02, 2016. Chief Complaint: SOB Pt evaluation today including: conversation w/ patient, physical exam, chart review, lab review, review of studies, review of inpatient medication list History of Present Illness Patient feeling ok this AM except weak and tired. Had recurrent PAF yesterday afternoon, converting overnight with increased IV metoprolol and amiodarone. Currently NSR. No chest pain or SOB. No palpitations, dizziness, syncope or near syncope. No orthopnea or worsening LE edema. Allergies Coded Allergies: Penicillins (Verified Allergy, Mild, rash, 05/13/16) Morphine (Verified Allergy, Unknown, UNKNOWN, 05/13/16) GAMALIEL Inhibitors (Verified Adverse Reaction, Intermediate, HYPERKALEMIA, 06/01) Angiotensin Receptor Blockers (Verified Adverse Reaction, Intermediate, HYPERKALEMIA, 06/01/16) Codeine (Verified Adverse Reaction, Unknown, MAKES ME HIGH, 05/13/16) Social History Smoking Status: Never Smoker Hx Tobacco Use In Past Year?: No Hx Alcohol Use - Type And Amou: No Hx Substance Use - Type And Am: No Problem List Medical Problems: (1) Abdominal pain Status: Acute (2) Chest pain Status: Acute (3) CHF (congestive heart failure) Status: Acute (4) Chronic obstructive pulmonary disease Status: Acute (5) Constipation Status: Acute (6) Cough Status: Acute (7) Hypoxia Status: Acute (8) Left sided chest pain Status: Acute (9) Pneumonia Status: Acute (10) Shortness of breath Status: Acute (11) Symptomatic bradycardia Status: Acute (12) Traumatic intracranial hemorrhage Status: Acute Review of Systems Respiratory: No cough, No dyspnea at rest, No hemoptysis, No shortness of breath, No sputum, No wheezing Cardiac: No PND, No chest pain, No edema, No orthopnea, No palpitations Physical Exam Vital Signs Last Vital Signs Documentation Date Time Temp Pulse Resp B/P Pulse Ox O2 Delivery O2 Flow Rate FiO2 06/02/16 13:59 63 20 168/50 100 06/02/16 13:55 37.0 06/02/16 08:00 Nasal Cannula 06/02/16 04:00 2.0 Physical Exam Constitutional: General Apperance: overweight Level of Distress: acutely ill, chronically ill Psychiatric: Orientation: to time, to place, to person Head: normocephalic Eyes: Pupils: PERRLA Neck: supple Lungs: Auscultation: no wheezing, no rales/crackles, deminished air movement ( anterior chest) Cardiovascular: Heart Auscultation: RRR, normal S1, normal S2, II/ SAMANTHA Abdomen: Bowel Sounds: normal Inspection & Palpation: soft, no tenderness, guarding & rebound Extremities: no edema, no clubbing Neurologic: Gait & Station: pertinent finding (No focal motor deficit) Cranial Nerves: grossly intact Assessment and Plan Assessment and Plan FINAL IMPRESSION: 1. S/P left thoracotomy and HH repair, small pneumo with chest tube in place 2. Chronic compensated diastolic heart failure. 3. 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 No evidence of infectious endocarditis, anticoagulation contraindicated. 4. Mild aortic stenosis with moderate regurgitation. 5. Sick sinus syndrome, status post pacemaker placement - telemetry demonstrating atrial paced rhythm. 6. Paroxysmal atrial fibrillation - current NSR. Had recurrent episode of afib RVR yesterday and converted overnight. 9. Chronic kidney disease - stable PLAN AND RECOMMENDATIONS: Monitor I+O's and fluid status closely. PO meds on hold, including furosemide. Continue PRN IV furosemide to maintain fluid status. Continue IV amio and IV metoprolol to maintain NSR. IF IV access not obtained, will need to consider when oral meds can be initiated per surgery. Discussed with Dr. Mills. Will follow. Cardiology attending: Pt seen and examined, agree with findings and assessment as per Tracy Alcala. Pt states that she's feeling well except for pain at chest tube site. Had barium swallow today. Issues with IV access, for PICC line. Resume previous amio , lopressor and prn lasix IV once access established. Will change to oral once tolerating diet. Laboratory Results Last 24 Hours Test 06/01/16 16:40 06/01/16 20:32 06/02/16 00:17 06/02/16 05:40 Bedside Glucose 165 mg/dl 201 mg/dl 186 mg/dl 192 mg/dl Sodium Level 150 mmol/L Potassium Level 4.0 mmol/L Chloride Level 110 mmol/L Carbon Dioxide Level 29 mmol/L Anion Gap 11.0 mmol/L Blood Urea Nitrogen 50 mg/dl Creatinine 1.30 mg/dl Est Creatinine Clear Calc Drug Dose 36.0 ml/min Estimated GFR () 44.6 Estimated GFR (Non- 38.4 BUN/Creatinine Ratio 38.2 Random Glucose 193 mg/dl Calcium Level 8.9 mg/dl Test 06/02/16 07:40 06/02/16 13:43 White Blood Count 22.08 K/uL Red Blood Count 3.33 M/uL Hemoglobin 10.5 g/dL Hematocrit 33.6 % Mean Corpuscular Volume 100.9 fL Mean Corpuscular Hemoglobin 31.5 pg Mean Corpuscular Hemoglobin Concent 31.3 g/dl Platelet Count 87 K/uL Mean Platelet Volume 10.6 fL Neutrophils (%) (Auto) 89.7 % Lymphocytes (%) (Auto) 4.6 % Monocytes (%) (Auto) 5.0 % Eosinophils (%) (Auto) 0.0 % Basophils (%) (Auto) 0.1 % Neutrophils # (Auto) 19.80 K/uL Lymphocytes # (Auto) 1.02 K/uL Monocytes # (Auto) 1.10 K/uL Eosinophils # (Auto) 0.00 K/uL Basophils # (Auto) 0.02 K/uL RDW Standard Deviation 64.9 fL RDW Coefficient of Variation 17.8 % Immature Granulocyte % (Auto) 0.6 % Immature Granulocyte # (Auto) 0.14 K/uL Sodium Level 148 mmol/L Potassium Level 3.5 mmol/L Chloride Level 108 mmol/L Carbon Dioxide Level 26 mmol/L Anion Gap 14.0 mmol/L Blood Urea Nitrogen 50 mg/dl Creatinine 1.20 mg/dl Est Creatinine Clear Calc Drug Dose 39.0 ml/min Estimated GFR () 49.1 Estimated GFR (Non- 42.4 BUN/Creatinine Ratio 42.0 Random Glucose 218 mg/dl Calcium Level 8.7 mg/dl
--- NOTE | 2016-06-02 14:48 | Critical Care Progress Note ---
Critical Care Progress Note Date of Service Jun 02, 2016. Attending Dr. Blake Subjective 80 y/o F , resident of [facility] with a complex PMH was admitted to the hospital after she presented with SOB and cough which started 3 days [employer]. She was been treated for acute hypoxic resp failure secondary to COPD +/- CHF exacerbation , HTN . she has a h/o GERD with a hiatal hernia and had uncontrolled belching for which she was scheduled for a laparoscopic hernia repair by thoracic surgery She was admitted to the ICU after a laparoscopic hiatal hernia surgery doing well. denies any CP/SOB, palpitations. pain is well controlled Objective GENERAL: Patient is in no acute distress. HEENT: No acute trauma, normocephalic atraumatic, mucous membranes moist, no nasal congestion, no scleral icterus. NECK: No stridor, no adenopathy, no meningismus, trachea is midline. LUNGS: wheezes, rhonchi, left sided chest tube with serosanguineous drainage HEART: SAMANTHA, regular rate and rhythm. ABDOMEN: Soft, nontender, bowel sounds positive EXTREMITIES: No cyanosis , mild edema, right sided PICC line NEUROLOGIC: Oriented x 3, no acute motor or sensory deficits, no focal weakness. SKIN: No rash, no jaundice, no diaphoresis. Assessment & Plan 80 y/o F , resident of [facility] with a complex PMH was admitted to the hospital after she presented with SOB and cough which started 3 days [employer]. She was been treated for acute hypoxic resp failure secondary to COPD +/- CHF exacerbation Postoperative day #3 status post left thoracotomy with Belsey Jose IV repair. Neuro: - pain control with Dilaudid 0.5 mg q3h PRN, IV acetaminophen Resp: Acute hypoxic resp failure ; COPD +/- CHF exacerbation: - was hypoxic on arrival with Sao2 at 87 - currently on 2L NC - has been receiving Prednisone 20 mg BID since admission- converted to hydrocortisone 35 mg TID , will need to be weaned to 30 mg TID from tomorrow - Continue albuterol, Xopenex PRN - Duoneb q3h scheduled and q2h PRN - Singulair and Mucinex currently held CVS: - CHF exacerbation: Resp failure likely contributed by CHF exacerbation - Strict Is and Os - daily weights h/o A fib: currently in NSR - [id number] vasc score of 6 - Amiodarone drip started postop - No AC since h/o subdural hematoma after fall SSS s/p pacemaker stable HTN: - On Clonidine, hydralazine, metoprolol, held as she is NPO - ACEI/ARB caused hyperkalemia and have been d/c - Clonidine patch 0.2 mg - Lopressor 5 mg Q6H - hydralazine PRN MV anamoly: stable had TTE and SEJAL Renal : RACHELL: Cr baseline 1.2-1.3, today 1.3 Monitor Cr - will hold Lasix for today - 1/2 NS at 75 mls/hr Hypernatremia: Na at 150, recheck Na - at 148 oral hydration GI/FEN: GERD/hiatal hernia: s/p hernia repair - Had a barium swallow today: 1. There was pooling of contrast in the distal esophagus with delayed passage into the stomach. This is likely related to postoperative edema. 2. 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 - Speech eval - OK to take small sips - Protonix 40 mg BID Constipation: - senna - currently held Endocrine: - Diabetes: - Glipizide held - ISS Hypothyroidism: - levothyroxine 50 mcg oral switched to 37.5 mcg IV Psych: Depression: - sertraline- currently held Access: right upper extremity PICC DVT prophylaxis: SCDs DNR Resident Physician Supervision Note: Dr. Arash Soto was resident physician during care of patient. I separately evaluated patient and did history and exam. I discussed the case with the resident and generally agree with the findings and plan. Continue diuresis, optimize electrolytes Documented By: Dave Blake DO Data Medications: Current Inpatient Medications Medications (Trade) Dose Ordered Sig/Srinivas Route Start Time Stop Time Status Last Admin Dose Admin Acetaminophen (Tylenol Tab) 650 mg Q4H PRN PO 05/13/16 18:30 06/12/16 18:29 Future Hold 05/27/16 12:30 650 MG Amiodarone HCl (Cordarone Tab) 200 mg DAILY PO 05/14/16 09:00 06/13/16 08:59 Future Hold 05/30/16 08:26 200 MG Atorvastatin Calcium (Lipitor Tab) 20 mg DAILY PO 05/14/16 09:00 06/13/16 08:59 Future Hold 05/29/16 11:53 20 MG Clonidine HCl (Catapres Tab) 0.1 mg BID PO 05/13/16 21:00 06/12/16 20:59 Future Hold 05/29/16 11:53 0.1 MG Fluticasone Propionate (Flonase Nasal [place]) 2 sprays DAILY NA 05/14/16 09:00 06/13/16 08:59 06/02/16 10:23 2 SPRAYS Gabapentin (Neurontin Cap) 100 mg TID PO 05/13/16 21:00 06/12/16 20:59 Future Hold 05/30/16 08:26 100 MG Guaifenesin (Mucinex Contr Rel Tab) 600 mg DAILY PO 05/14/16 09:00 06/13/16 08:59 Future Hold 05/29/16 11:53 600 MG Levothyroxine Sodium (Synthroid Tab) 50 mcg DAILYBB PO 05/14/16 06:00 06/13/16 05:59 Future Hold 05/30/16 06:18 50 MCG Mirtazapine (Remeron Tab) 15 mg HS PO 05/13/16 21:00 06/12/16 20:59 Future Hold 05/29/16 21:01 15 MG Montelukast Sodium (Singulair Tab) 10 mg HS PO 05/14/16 21:00 06/13/16 20:59 Future Hold 05/29/16 21:01 10 MG Ranitidine HCl (zANTac TAB) 150 mg BID PO 05/13/16 21:00 06/12/16 20:59 Future Hold 05/29/16 21:01 150 MG Senna/Docusate Sodium (Senokot S Tab) 2 tab BID PO 05/13/16 21:00 06/12/16 20:59 Future Hold 05/29/16 21:01 2 TAB Sertraline HCl (Zoloft Tab) 100 mg DAILY PO 05/14/16 09:00 06/13/16 08:59 Future Hold 05/30/16 09:51 100 MG Tramadol HCl (Ultram Tab) 50 mg Q6H PRN PO 05/13/16 19:00 06/12/16 18:59 Future Hold 05/29/16 19:41 50 MG Miscellaneous Information (Order Awaiting Action) 1 ea QS N/A 05/14/16 00:00 06/13/16 00:00 Ferrous Sulfate (Feosol Tab) 325 mg DAILY PO 05/14/16 09:00 06/13/16 08:59 Future Hold 05/29/16 11:53 325 MG Miscellaneous Information (Order Awaiting Action) 1 ea QS N/A 05/14/16 00:00 06/13/16 00:00 Miscellaneous Information (Order Awaiting Action) 1 ea QS N/A 05/14/16 00:00 06/13/16 00:00 Polyethylene (Miralax Powder Packet) 17 gm DAILY PRN PO 05/13/16 20:15 06/12/16 20:14 Glucose (Glucose 40% Gel) 15-30 GRAMS 15 GRAMS... UD PRN PO 05/13/16 19:00 06/12/16 18:59 Glucose (Glucose Chew Tab) 4-8 Tablets 4 Tabl... UD PRN PO 05/13/16 19:00 06/12/16 18:59 Dextrose (Dextrose 50% 50ML Syringe) 25-50ML OF 50% DW IV FOR... UD PRN IV 05/13/16 19:00 06/12/16 18:59 Glucagon (Glucagon Inj) 1 mg UD PRN SQ 05/13/16 19:00 06/12/16 18:59 Mineral Oil (Fleet Oil Enema) 133 ml DAILY PRN FL 05/14/16 13:30 06/13/16 13:29 Miscellaneous Information (Consult Glycemic Management Pharmacy) 1 ea UD PRN N/A 05/15/16 08:45 06/14/16 08:44 Polyethylene (Miralax Powder Packet) 17 gm DAILY PO 05/16/16 09:00 06/15/16 08:59 06/02/16 10:23 17 GM Hydralazine HCl (Apresoline Tab) 50 mg TID PO 05/18/16 14:00 06/17/16 13:59 Future Hold 05/29/16 14:35 50 MG Furosemide (Lasix Tab) 40 mg QAM PO 05/18/16 09:00 06/17/16 08:59 Future Hold 05/29/16 11:53 40 MG Isosorbide Dinitrate (Isordil Tab) 20 mg TID@0700,1200,1700 PO 05/20/16 12:00 06/19/16 11:59 Future Hold 05/30/16 08:25 20 MG Ipratropium [place] (Atrovent 0.02% 0.5MG/2.5ML Neb) 0.5 mg Q6R PRN INH 05/26/16 15:15 06/25/16 15:14 Levalbuterol (Xopenex 1.25MG/ 0.5ML Neb) 1.25 mg Q6R PRN INH 05/26/16 15:15 06/25/16 15:14 Hydralazine HCl (HydrALAZINE INJ) 5 mg Q6 PRN IV. 05/28/16 13:45 06/27/16 13:44 06/01/16 13:51 5 MG Ondansetron HCl (Zofran Inj) 4 mg Q4H PRN IV 05/30/16 16:45 06/29/16 16:44 Hydromorphone HCl 0.5 mg 0.5 mg Q3H PRN IV 05/30/16 16:45 06/13/16 16:44 06/02/16 01:54 0.5 MG Acetaminophen 1000 mg/Empty Bag 100 ml @ 400 mls/hr Q8@0600,1400,2200 IV 05/30/16 22:00 06/29/16 21:59 06/02/16 14:01 400 MLS/HR Amiodarone HCL/ Dextrose (Nexterone / D5w) 200 ml @ 16.7 mls/hr [id number] IV 05/30/16 17:00 06/29/16 16:59 06/02/16 01:55 16.7 MLS/HR Insulin Aspart SLIDING SCALE G... Q6 SC 05/30/16 18:00 06/29/16 17:59 06/02/16 05:56 1 UNITS Pantoprazole Sodium 40 mg/ Syringe 10 ml @ 5 mls/min DAILY@, IV 05/30/16 22:00 06/29/16 21:59 06/02/16 10:22 5 MLS/MIN Levothyroxine Sodium 37.5 mcg/ Syringe 1.875 ml @ 56.25 mls/ hr DAILY@09 IV 05/31/16 09:00 06/30/16 08:59 06/02/16 10:22 56.25 MLS/HR Hydrocortisone Sodium Succinate/ Syringe (Solu-Cortef IV/ Syringe) 0.7 ml @ 4 mls/min TID IV 06/01/16 09:00 06/02/16 23:59 06/02/16 14:01 4 MLS/MIN Enoxaparin Sodium (Lovenox Inj) 30 mg DAILY SQ 06/01/16 09:00 07/01/16 08:59 06/02/16 10:24 30 MG Albuterol/ Ipratropium 3 ml 3 ml Q2H PRN INH 06/01/16 09:30 07/01/16 09:29 Sodium Chloride (/2 Nss 1000ml) 1,000 ml @ 75 mls/hr [id number] IV 06/01/16 13:00 07/01/16 12:59 06/02/16 03:57 75 MLS/HR Metoprolol Tartrate (Lopressor Iv) 5 mg Q6 IV. 06/01/16 18:00 07/01/16 17:59 06/02/16 12:00 5 MG Clonidine HCl ([id number] 0.1mg/24hr Patch) 1 patch CQWK TD 06/01/16 14:30 07/01/16 14:29 Miscellaneous (Remove Clonidine Patch) 1 ea CQWK N/A 06/01/16 14:29 07/01/16 14:28 Miscellaneous Information 1 ea 1 ea QS N/A 06/01/16 16:00 07/01/16 15:59 06/02/16 00:22 1 EA Hydrocortisone Sodium Succinate/ Syringe (Solu-Cortef IV/ Syringe) 0.6 ml @ 4 mls/min TID IV 06/03/16 09:00 07/03/16 08:59 Heparin Sodium (Porcine) (Heparin 10 Unit/ ml 5 ml Flush) 5 ml PRN PRN FLUSH 06/02/16 13:15 07/02/16 13:14 I & O: 24-Hour Column 06/02/16 07:59 Intake Total 3567 ml Output Total 2425 ml Balance 1142 ml Vital Signs: Date Time Temp Pulse Resp B/P Pulse Ox O2 Delivery O2 Flow Rate FiO2 06/02/16 13:59 63 20 168/50 100 06/02/16 13:55 37.0 77 24 167/65 99 06/02/16 13:48 68 21 167/65 98 06/02/16 13:30 70 24 99 06/02/16 13:00 70 24 99 06/02/16 12:00 72 21 98 06/02/16 12:00 77 167/65 06/02/16 12:00 72 21 98 06/02/16 11:00 66 20 98 06/02/16 11:00 66 20 98 06/02/16 10:59 67 21 170/62 98 06/02/16 10:59 67 21 170/62 98 06/02/16 10:00 68 23 99 06/02/16 10:00 68 23 99 06/02/16 09:59 68 22 172/52 99 06/02/16 09:59 68 22 172/52 99 06/02/16 09:00 68 20 90 06/02/16 09:00 68 20 90 06/02/16 08:59 67 21 159/81 89 06/02/16 08:59 67 21 159/81 89 06/02/16 08:52 70 20 178/46 91 06/02/16 08:52 70 20 178/46 91 06/02/16 08:49 71 26 187/51 91 06/02/16 08:49 71 26 187/51 91 06/02/16 08:00 Nasal Cannula 06/02/16 07:00 61 18 100 06/02/16 05:47 70 165/62 06/02/16 05:44 71 17 165/62 97 06/02/16 04:59 71 15 83/67 97 06/02/16 04:00 37.0 06/02/16 04:00 97 Nasal Cannula 2.0 06/02/16 03:59 72 19 144/67 97 06/02/16 02:59 119 18 134/66 98 06/02/16 01:59 117 19 130/52 93 06/02/16 00:59 107 21 132/53 97 06/02/16 00:22 118 126/57 06/01/16 23:59 97 Nasal Cannula 2.0 06/01/16 23:59 37.0 06/01/16 23:58 121 25 126/57 96 06/01/16 23:09 122 21 98/77 95 06/01/16 22:00 116 23 125/60 97 06/01/16 21:29 121 22 131/75 98 06/01/16 20:59 115 20 120/59 98 06/01/16 20:28 117 17 106/77 98 06/01/16 20:14 114 22 85/63 97 06/01/16 20:00 99 Nasal Cannula 2.0 06/01/16 20:00 36.6 06/01/16 19:59 119 18 88/65 97 06/01/16 19:44 121 19 95/74 97 06/01/16 19:29 106 14 /56 97 06/01/16 19:14 120 21 106/76 97 06/01/16 19:00 123 20 97 06/01/16 18:00 113 20 127/76 97 06/01/16 16:35 116 92/71 06/01/16 16:00 97 Nasal Cannula 2.0 06/01/16 15:28 115 15 107/73 97 06/01/16 15:15 116 23 97 06/01/16 15:13 118 18 94/71 97 06/01/16 15:13 118 18 94/71 97 06/01/16 15:00 126 19 90/76 96 06/01/16 15:00 126 19 90/76 96 06/01/16 14:45 125 16 97 06/01/16 14:45 125 16 97 06/01/16 14:44 113 21 93/60 97 06/01/16 14:44 113 21 93/60 97 Laboratory Results: Last 24 Hours Test 06/01/16 16:40 06/01/16 20:32 06/02/16 00:17 06/02/16 05:40 Bedside Glucose 165 mg/dl 201 mg/dl 186 mg/dl 192 mg/dl Sodium Level 150 mmol/L Potassium Level 4.0 mmol/L Chloride Level 110 mmol/L Carbon Dioxide Level 29 mmol/L Anion Gap 11.0 mmol/L Blood Urea Nitrogen 50 mg/dl Creatinine 1.30 mg/dl Est Creatinine Clear Calc Drug Dose 36.0 ml/min Estimated GFR () 44.6 Estimated GFR (Non- 38.4 BUN/Creatinine Ratio 38.2 Random Glucose 193 mg/dl Calcium Level 8.9 mg/dl Test 06/02/16 07:40 06/02/16 13:43 White Blood Count 22.08 K/uL Red Blood Count 3.33 M/uL Hemoglobin 10.5 g/dL Hematocrit 33.6 % Mean Corpuscular Volume 100.9 fL Mean Corpuscular Hemoglobin 31.5 pg Mean Corpuscular Hemoglobin Concent 31.3 g/dl Platelet Count 87 K/uL Mean Platelet Volume 10.6 fL Neutrophils (%) (Auto) 89.7 % Lymphocytes (%) (Auto) 4.6 % Monocytes (%) (Auto) 5.0 % Eosinophils (%) (Auto) 0.0 % Basophils (%) (Auto) 0.1 % Neutrophils # (Auto) 19.80 K/uL Lymphocytes # (Auto) 1.02 K/uL Monocytes # (Auto) 1.10 K/uL Eosinophils # (Auto) 0.00 K/uL Basophils # (Auto) 0.02 K/uL RDW Standard Deviation 64.9 fL RDW Coefficient of Variation 17.8 % Immature Granulocyte % (Auto) 0.6 % Immature Granulocyte # (Auto) 0.14 K/uL Sodium Level 148 mmol/L Potassium Level 3.5 mmol/L Chloride Level 108 mmol/L Carbon Dioxide Level 26 mmol/L Anion Gap 14.0 mmol/L Blood Urea Nitrogen 50 mg/dl Creatinine 1.20 mg/dl Est Creatinine Clear Calc Drug Dose 39.0 ml/min Estimated GFR () 49.1 Estimated GFR (Non- 42.4 BUN/Creatinine Ratio 42.0 Random Glucose 218 mg/dl Calcium Level 8.7 mg/dl
--- NOTE | 2016-06-02 17:55 | PROGRESS NOTE ---
DATE: 06/02/2016 SUBJECTIVE: Mrs. Robledo is now postoperative day #3 status post left thoracotomy with a Belsey Jose IV repair for recurrent hiatal hernia. Mrs. Robledo looks quite good. We had a barium swallow this morning which showed no evidence of a leak and even though there appeared to be some holdup I think the NG tube itself was probably not helping as it did not appear to be stenotic. I removed the NG tube and repeated the chest x-ray and the dye had gone through nicely. The patient is hungry. She feels much better than she did preoperatively. She is no longer belching. She is afebrile with stable vital signs. Her chest tube output is down to almost to very little. She has rhonchi of her lungs and her cough is much better, although still fairly poor. Her white count remains elevated at 22,080. Her hemoglobin is stable at 10.5. After removing her NG tube she drank a large amount of fluid without difficulty. Reviewing her labs, her sodium is down to 148, her potassium 3.5, chloride 108, bicarbonate 26, BUN and creatinine 50 and 1.2. The patient has gone in and out of atrial fibrillation which she was doing before. As her chest tube has drained very little, I would like to see how much it drains overnight. I will probably pull it out in the morning. ASSESSMENT AND PLAN: Postop day #3, status post Belsey Jose IV repair via left thoracotomy. I am quite happy with the barium swallow. It appears the wrap is intact below the diaphragm. I would hold off giving her solid food until I see her back in the office in about 2 weeks. At this point, I would plan to remove her chest tube tomorrow and then get her up and moving. I am quite happy with her appearance at this point.
--- NOTE | 2016-06-02 20:03 | Progress Note ---
Internal Med Progress Note Date of Service: Jun 02, 2016. Provider Documentation: SUBJECTIVE: s/p surgery 05/30/16 for hiatal hernia afebrile s/p barium swallow study today has pain at surgery site says has some sob OBJECTIVE: Vital Signs-as noted below Exam: General-alert and awake. seems in pain ENT-normal hearing Neck-no neck masses Lungs-cta b/l no wheezing or crackles s/p left sided chest tube Heart-s1 and s2 heard regular rate and rhythm no murmurs Abdomen-soft bowel sounds sluggish non tender no distension Extremities-no erythema Neuro-alert and awake moves extremities Lab data as noted below. ASSESSMENT & PLAN: 80 yoF with significant heart history and valve issues admitted for increased work of breathing 2/2 CHF exacerbation. Belching severe mostly from hiatal hernia s/p status post left thoracotomy with Belsey Jose IV repair s/p surgery today 05/30/16 close monitor in ICU. on NG tube management as per ct surgery critical care on board. plan for chest tube removal tomorrow stable so far Hx of a .fib currently on amiodarone drip as patient is npo. HTN up and down on iv Lopressor iv hydralazine prn plan for labetalol drip if gets uncontrolled. Nutrition patinet npo plan for picc line may need tpn will d/w ct surgery and critical care Hospital course so far: Intial presentation with ACUTE HYPOXIC RESPIRATORY FAILURE, LIKELY MULTIFACTORIAL DUE TO ACUTE DIASTOLIC CHF AND/OR COPD EXACERBATION Presented with cough and SOB x 3 days; influenza outbreak at care home however patient has been on prophylactic Tamilfu since 05/05 87% on room air on arrival, improved with oxygen 2L via NC Treated with steroids, Lasix and abx echo no change from previous cardiology on board Cardiology started on lower dose Losartan which was stopped secondary to arf and hyperkalemia requiring oxygen while sleeping on nocturna pulse ox study restarted Lasix 40mg daily. pt/ot nebs prn currently stable will monitor MITRAL VALVE ANOMALY echo-unchanged. cardiology on board stable CONSTIPATION KU fecal retention was on lactulose stopped lactulose secondary to abdominal gas currently on miralx daily had enema currently s/p surgery Hyperkalemia k 5.3 losartan stopped had a dose of Kayexalate resolved ATRIAL FIBRILLATION on amiodarone and metoprolol rate controlled Not anticoagulated due to hx of hemorrhagic pericardial effusion and subdural hematoma s/p fall will monitor post op currently on amiodarone drip SSS S/P PACER no acute issues HTN on clonidine, hydralazine, and metoprolol hydralazine dose increased losartan stopped secondary to ARF and hyperkalemia BP up and down iv hydralazine prn will monitor ARF' baseline cr 1.2 to 1.3 cr 1.4 today will f/u labs. DM hgb a1c 7.0 03/2016 oral agents on hold. SSI while hospitalized will monitor GERD, HIATAL HERNIA on PPI/H2 filipe HYPOTHYROIDISM on levothyroxine DEPRESSION on sertraline DVT PROPHYLAXIS SCDs due to hx of hemorrhagic pericardial effusion and subdural hematoma CODE STATUS DNR DISPO: close monitor in ICU Vital Signs: Date Time Temp Pulse Resp B/P Pulse Ox O2 Delivery O2 Flow Rate FiO2 06/02/16 19:26 63 163/50 06/02/16 17:00 71 18 154/47 97 Nasal Cannula 3.0 06/02/16 16:00 81 18 182/68 98 Nasal Cannula 3.0 06/02/16 16:00 95 Nasal Cannula 3.0 06/02/16 13:59 63 20 168/50 100 06/02/16 13:55 37.0 77 24 167/65 99 06/02/16 13:48 68 21 167/65 98 06/02/16 13:30 70 24 99 06/02/16 13:00 70 24 99 06/02/16 12:00 72 21 98 06/02/16 12:00 99 Nasal Cannula 2.0 06/02/16 12:00 72 21 98 06/02/16 12:00 77 167/65 06/02/16 12:00 72 21 98 06/02/16 11:00 66 20 98 06/02/16 11:00 66 20 98 06/02/16 10:59 67 21 170/62 98 06/02/16 10:59 67 21 170/62 98 06/02/16 10:00 68 23 99 06/02/16 10:00 68 23 99 06/02/16 09:59 68 22 172/52 99 06/02/16 09:59 68 22 172/52 99 06/02/16 09:30 77 16 97 Nasal Cannula 2.0 06/02/16 09:00 68 20 90 2/3/17 09:00 68 20 90 06/02/16 08:59 67 21 159/81 89 06/02/16 08:59 67 21 159/81 89 06/02/16 08:52 70 20 178/46 91 06/02/16 08:52 70 20 178/46 91 06/02/16 08:49 71 26 187/51 91 06/02/16 08:49 71 26 187/51 91 06/02/16 08:00 Nasal Cannula 06/02/16 08:00 98 Nasal Cannula 2.0 06/02/16 07:00 61 18 100 06/02/16 05:47 70 165/62 06/02/16 05:44 71 17 165/62 97 06/02/16 04:59 71 15 83/67 97 06/02/16 04:00 37.0 06/02/16 04:00 97 Nasal Cannula 2.0 06/02/16 03:59 72 19 144/67 97 06/02/16 02:59 119 18 134/66 98 06/02/16 01:59 117 19 130/52 93 06/02/16 00:59 107 21 132/53 97 06/02/16 00:22 118 126/57 06/01/16 23:59 97 Nasal Cannula 2.0 06/01/16 23:59 37.0 06/01/16 23:58 121 25 126/57 96 06/01/16 23:09 122 21 98/77 95 06/01/16 22:00 116 23 125/60 97 06/01/16 21:29 121 22 131/75 98 06/01/16 20:59 115 20 120/59 98 06/01/16 20:28 117 17 106/77 98 06/01/16 20:14 114 22 85/63 97 Lab Results: Results Past 24 Hours Test 06/01/16 20:32 06/02/16 00:17 06/02/16 05:40 06/02/16 07:40 Range/Units Bedside Glucose 201 186 192 70-90 mg/dl Sodium Level 150 136-145 mmol/L Potassium Level 4.0 3.5-5.1 mmol/L Chloride Level 110 98-107 mmol/L Carbon Dioxide Level 29 21-32 mmol/L Anion Gap 11.0 3-11 mmol/L Blood Urea Nitrogen 50 7-18 mg/dl Creatinine 1.30 0.60-1.20 mg/dl Est Creatinine Clear Calc Drug Dose 36.0 ml/min Estimated GFR () 44.6 Estimated GFR (Non- 38.4 BUN/Creatinine Ratio 38.2 10-20 Random Glucose 193 70-99 mg/dl Calcium Level 8.9 8.5-10.1 mg/dl White Blood Count 22.08 4.8-10.8 K/uL Red Blood Count 3.33 4.2-5.4 M/uL Hemoglobin 10.5 12.0-16.0 g/dL Hematocrit 33.6 37-47 % Mean Corpuscular Volume 100.9 80-100 fL Mean Corpuscular Hemoglobin 31.5 25-34 pg Mean Corpuscular Hemoglobin Concent 31.3 32-36 g/dl Platelet Count 87 130-400 K/uL Mean Platelet Volume 10.6 7.4-10.4 fL Neutrophils (%) (Auto) 89.7 % Lymphocytes (%) (Auto) 4.6 % Monocytes (%) (Auto) 5.0 % Eosinophils (%) (Auto) 0.0 % Basophils (%) (Auto) 0.1 % Neutrophils # (Auto) 19.80 1.4-6.5 K/uL Lymphocytes # (Auto) 1.02 1.2-3.4 K/uL Monocytes # (Auto) 1.10 0.11-0.59 K/uL Eosinophils # (Auto) 0.00 0-0.5 K/uL Basophils # (Auto) 0.02 0-0.2 K/uL RDW Standard Deviation 64.9 36.4-46.3 fL RDW Coefficient of Variation 17.8 11.5-14.5 % Immature Granulocyte % (Auto) 0.6 % Immature Granulocyte # (Auto) 0.14 0.00-0.02 K/uL Test 06/02/16 13:43 Range/Units Sodium Level 148 136-145 mmol/L Potassium Level 3.5 3.5-5.1 mmol/L Chloride Level 108 98-107 mmol/L Carbon Dioxide Level 26 21-32 mmol/L Anion Gap 14.0 3-11 mmol/L Blood Urea Nitrogen 50 7-18 mg/dl Creatinine 1.20 0.60-1.20 mg/dl Est Creatinine Clear Calc Drug Dose 39.0 ml/min Estimated GFR () 49.1 Estimated GFR (Non- 42.4 BUN/Creatinine Ratio 42.0 10-20 Random Glucose 218 70-99 mg/dl Calcium Level 8.7 8.5-10.1 mg/dl
[2016-06-03] VITALS (31 sets, daily range): BP systolic 82–174; BP diastolic 43–77; PULSE 60–112; TEMP 36.8–36.9; O2SAT 94–100
[2016-06-03] MEDS: ACETAMINOPHEN IV 1,000 MG in EMPTY BAG 0 ML IV SCH (05:25)
[2016-06-03] MEDS: METOPROLOL TARTRATE 1 MG/ML VIAL IV. SCH (05:25)
[2016-06-03] MEDS: INSULIN ASPART 100 UNITS/ML 3 ML PEN SC SCH ×4 (05:29→21:26)
[2016-06-03 05:49] LABS: HEMATOCRIT 27.8 % (37-47); MEAN CELL VOLUME 101.5 fL (80-100); MEAN CORPUSCULAR HGB CONC 30.6 g/dl (32-36); PLATELET COUNT 82 K/uL (130-400); RED BLOOD COUNT 2.74 M/uL (4.2-5.4); WHITE BLOOD COUNT 12.03 K/uL (4.8-10.8)
[2016-06-03 05:58] LABS: CREATININE 1.2 mg/dl (0.60-1.20)
--- NOTE | 2016-06-03 07:29 | DIAGNOSTIC IMAGING REPORT ---
CHEST ONE VIEW PORTABLE CLINICAL HISTORY: thoracotomy post procedure COMPARISON STUDY: 06/02/2016 FINDINGS: Unchanging positioned left basilar chest tube. Lungs remain grossly clear. Mild bronchovascular prominence is unchanged. PICC catheter remains in superior vena cava. Bipolar cardiac pacer unchanged in position. IMPRESSION: Unchanging post procedural change left base. Unchanging mild prominence left basilar parenchymal markings. Electronically signed by: Jose Keyes M.D. 06/03/2016 7:28 AM Dictated Date/Time: 06/03/2016 7:26 AM
[2016-06-03] MEDS: CHECK CLONIDINE PATCH PLACEMENT SCH (08:05)
[2016-06-03] MEDS: ENOXAPARIN 30 MG/0.3 ML SYR SQ SCH (08:16)
[2016-06-03] MEDS: POLYETHYLENE (MIRALAX) 17 GM PACK PO SCH (08:16)
[2016-06-03] MEDS: HYDROmorphone INJ 1 MG/ML SYR IV PRN (08:17)
[2016-06-03] MEDS: AMIODARONE / D5W 200 ML IV SCH (08:19)
[2016-06-03] MEDS: PANTOprazole INJ 40 MG in SYRINGE 0 ML IV SCH (08:30)
[2016-06-03] MEDS: FLUTICASONE PROPIONATE NA SPR 16 GM BTL SCH (08:30)
[2016-06-03] MEDS ORDERED: HYDROCORTISONE IV SCH (09:00)
[2016-06-03 09:20] LABS: BUN/CREATININE RATIO 35.2 (10-20); CALCIUM 8.1 mg/dl (8.5-10.1); CREATININE 1.4 mg/dl (0.60-1.20); POTASSIUM 3.4 mmol/L (3.5-5.1)
[2016-06-03] MEDS ORDERED: POTASSIUM CHLORIDE 10 MEQ TABCR PO ONE (09:30)
--- NOTE | 2016-06-03 09:47 | Cardiology Follow-Up ---
Subjective Subjective Date of Service: Jun 03, 2016. Pt evaluation today including: conversation w/ patient, physical exam, chart review, lab review, review of studies, conversation w/ cyber security consultant, review of inpatient medication list Additional Details: Pt seen and examined, states that she's feeling relatively well. Relieved chest tube removed. Diet advancing. Denies cp, sob, palpitations or lightheadedness. Tele reviewed: sinus rhythm without arrhythmia or significant ectopy. Problem List Medical Problems: (1) Abdominal pain Status: Acute (2) Chest pain Status: Acute (3) CHF (congestive heart failure) Status: Acute (4) Chronic obstructive pulmonary disease Status: Acute (5) Constipation Status: Acute (6) Cough Status: Acute (7) Hypoxia Status: Acute (8) Left sided chest pain Status: Acute (9) Pneumonia Status: Acute (10) Shortness of breath Status: Acute (11) Symptomatic bradycardia Status: Acute (12) Traumatic intracranial hemorrhage Status: Acute Review of Systems Respiratory: No cough, No dyspnea at rest, No hemoptysis, No shortness of breath, No sputum, No wheezing Cardiac: No PND, No chest pain, No claudication, No edema, No orthopnea, No palpitations, No problem reported, No see HPI Abdomen: + nausea Objective Vital Signs Last Vital Signs Documentation Date Time Temp Pulse Resp B/P Pulse Ox O2 Delivery O2 Flow Rate FiO2 06/03/16 06:11 61 18 174/52 99 06/03/16 04:00 36.9 06/03/16 04:00 Nasal Cannula 2.0 Physical Exam: General Appearance: WD/WN, no apparent distress Eyes: bilateral eyes EOMI, bilateral eyes PERRL, bilateral eyes normal inspection ENT: normal ENT inspection, hearing grossly normal, pharynx normal Neck: supple, no adenopathy, thyroid normal, no JVD, no carotid bruits, trachea midline Respiratory/Chest: chest non-tender, lungs clear, no respiratory distress, + pertinent finding (decreased breath sounds) Cardiovascular: no JVD, + systolic murmur (2/6 mid to late lemuel, rsb, 2nd ics, no radiation), + irregularly irregular Abdomen: normal bowel sounds, non tender, soft, no organomegaly Extremities: non-tender, normal inspection, no pedal edema, no calf tenderness 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 Paroxysmal atrial fibrillation continues to flip in and out po meds to be restarted will start amio at 400mg bid resume previous doses of metoprolol deemed not an anticoagulation candidate secondary to mechanical fall with subdural hematoma 2. diastolic dysfunction stable beta filipe to be resumed hold lasix for now, follow volume status clinically 3. hypertension clonidine patch in place, ok to change to po metoprolol to be restarted can hold off on isosorbide and hydralazine for now, may restart as bp allows ok to transfer to tele from cardiac standpoint.
[2016-06-03] MEDS ORDERED: METOPROLOL TARTRATE 50 MG TAB PO ONE (09:51)
[2016-06-03] MEDS ORDERED: AMIODARONE 200 MG TAB PO ONE (10:14)
[2016-06-03 10:15] LABS: HEMATOCRIT 28.8 % (37-47); MEAN CELL VOLUME 101.8 fL (80-100); MEAN CORPUSCULAR HEMOGLOBIN 30.7 pg (25-34); MEAN CORPUSCULAR HGB CONC 30.2 g/dl (32-36); RED BLOOD COUNT 2.83 M/uL (4.2-5.4); WHITE BLOOD COUNT 11.72 K/uL (4.8-10.8)
[2016-06-03 10:28] LABS: PLATELET COUNT 84 K/uL (130-400)
--- NOTE | 2016-06-03 10:47 | SURGERY PROGRESS NOTE ---
DATE: 06/03/2016 DATE: 06/03/2016. SUBJECTIVE: Mrs. Robledo was seen today on postoperative day 4. I removed her chest tube. Her x-ray looked quite good. She looks better, but it is extremely difficult to get her moving around. Her biggest issue now is cardiac. She has been in an apparent sinus rhythm since about 4:00 yesterday morning. Hemoglobin is a little low at 8.7, however I think some of this may be dilutional. Her white count is down to 11,720. Her platelet count has been low at 87,000 yesterday, 82,000 today. Her sodium is down to 144, potassium is 3.4, chloride 107, bicarbonate 29, BUN and creatinine are 49 and 1.4, which is actually about baseline for her. Sugars have been a bit high. There is some concern about a heparin-induced thrombocytopenia. On 2 liters she is 99% saturations. Her respiratory effort is much better after we got the tube out. Her incision is clean. ASSESSMENT AND PLAN: Postoperative day 4 status post left thoracotomy with Belsey Jose 4 repair. Her GI symptoms are greatly improved. I was quite happy with her barium swallow yesterday. I think a very important part of Mrs. Robledo's recovery is going to be physical therapy and occupational therapy. I would recommend removing her [place] catheter and we will change all of her medications to p.o. today and discontinue her IV fluids.
--- NOTE | 2016-06-03 12:14 | Critical Care Progress Note ---
Critical Care Progress Note Date of Service Jun 03, 2016. Attending Dr. Blake Objective GENERAL: Patient is in no acute distress. HEENT: No acute trauma, normocephalic atraumatic, mucous membranes moist, no nasal congestion, no scleral icterus. NECK: No stridor, no adenopathy, no meningismus, trachea is midline. LUNGS: wheezes, rhonchi, left sided chest tube with serosanguineous drainage HEART: SAMANTHA, regular rate and rhythm. ABDOMEN: Soft, nontender, bowel sounds positive EXTREMITIES: No cyanosis , mild edema, right sided PICC line NEUROLOGIC: Oriented x 3, no acute motor or sensory deficits, no focal weakness. SKIN: No rash, no jaundice, no diaphoresis. Assessment & Plan 80 y/o F , resident of [facility] with a complex PMH was admitted to the hospital after she presented with SOB and cough which started 3 days WASTE HAND. She was been treated for acute hypoxic resp failure secondary to COPD +/- CHF exacerbation Postoperative day #4 status post left thoracotomy with Belsey Jose IV repair. Neuro: - pain control with Percocet Resp: Acute hypoxic resp failure ; COPD +/- CHF exacerbation: - was hypoxic on arrival with Sao2 at 87 - currently on 2L NC - switched to prednisone 20 mg once daily - Continue albuterol, Xopenex PRN - Duoneb q3h scheduled and q2h PRN - Singulair and Mucinex currently held CVS: - CHF exacerbation: Resp failure likely contributed by CHF exacerbation - Strict Is and Os - daily weights h/o A fib: currently in NSR - [id number] vasc score of 6 - amiodarone 400 mg BID - No AC since h/o subdural hematoma after fall SSS s/p pacemaker stable HTN: - Metoprolol, Catapres restarted - ACEI/ARB caused hyperkalemia and have been d/c MV anamoly: stable had TTE and SEJAL Renal : RACHELL: Cr baseline 1.2-1.3, today 1.4 Monitor Cr - will hold Lasix - 1/2 NS at 75 mls/hr DC Hypernatremia: resolved Na 148, today at 144 oral hydration Hypokalemia: K at 3.4 KCL GI/FEN: GERD/hiatal hernia: s/p hernia repair - Had a barium swallow today: 1. There was pooling of contrast in the distal esophagus with delayed passage into the stomach. This is likely related to postoperative edema. 2. 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 - full liquid diet - Protonix 40 mg po BID Constipation: - senna Endocrine: - Diabetes: - Glipizide held - ISS Hypothyroidism: - levothyroxine 50 mcg oral Heme: platelets trending down down to 82 from 140 at admission - on lovenox - HIT abs sent Psych: Depression: - sertraline Access: right upper extremity PICC DVT prophylaxis: SCDs lovenox DNR Dispo: transfer to tele Resident Physician Supervision Note: Dr. Arash Soto was resident physician during care of patient. I separately evaluated patient and did history and exam. I discussed the case with the resident and generally agree with the findings and plan. Continue to improve, stable for downgraded from ICU to telemetry status. Documented By: Dave Blake DO Data Medications: Current Inpatient Medications Medications (Trade) Dose Ordered Sig/Srinivas Route Start Time Stop Time Status Last Admin Dose Admin Acetaminophen (Tylenol Tab) 650 mg Q4H PRN PO 05/13/16 18:30 06/12/16 18:29 Future Hold 05/27/16 12:30 650 MG Amiodarone HCl (Cordarone Tab) 200 mg DAILY PO 05/14/16 09:00 06/04/16 09:00 Future hold 05/30/16 08:26 200 MG Atorvastatin Calcium (Lipitor Tab) 20 mg DAILY PO 05/14/16 09:00 06/13/16 08:59 Future hold 05/29/16 11:53 20 MG Clonidine HCl (Catapres Tab) 0.1 mg BID PO 05/13/16 21:00 06/12/16 20:59 Future hold 05/29/16 11:53 0.1 MG Fluticasone Propionate (Flonase Nasal [place]) 2 sprays DAILY NA 05/14/16 09:00 06/13/16 08:59 06/03/16 08:30 2 SPRAYS Gabapentin (Neurontin Cap) 100 mg TID PO 05/13/16 21:00 06/12/16 20:59 Future hold 05/30/16 08:26 100 MG Levothyroxine Sodium (Synthroid Tab) 50 mcg DAILYBB PO 05/14/16 06:00 06/13/16 05:59 Future hold 05/30/16 06:18 50 MCG Mirtazapine (Remeron Tab) 15 mg HS PO 05/13/16 21:00 06/12/16 20:59 Future hold 05/29/16 21:01 15 MG Montelukast Sodium (Singulair Tab) 10 mg HS PO 05/14/16 21:00 06/13/16 20:59 Future hold 05/29/16 21:01 10 MG Senna/Docusate Sodium (Senokot S Tab) 2 tab BID PO 05/13/16 21:00 06/12/16 20:59 Future hold 05/29/16 21:01 2 TAB Sertraline HCl (Zoloft Tab) 100 mg DAILY PO 05/14/16 09:00 06/13/16 08:59 Future hold 05/30/16 09:51 100 MG Miscellaneous Information (Order Awaiting Action) 1 ea QS N/A 05/14/16 00:00 06/13/16 00:00 Ferrous Sulfate (Feosol Tab) 325 mg DAILY PO 05/14/16 09:00 06/13/16 08:59 Future hold 05/29/16 11:53 325 MG Miscellaneous Information (Order Awaiting Action) 1 ea QS N/A 05/14/16 00:00 06/13/16 00:00 Miscellaneous Information (Order Awaiting Action) 1 ea QS N/A 05/14/16 00:00 06/13/16 00:00 Polyethylene (Miralax Powder Packet) 17 gm DAILY PRN PO 05/13/16 20:15 06/12/16 20:14 Glucose (Glucose 40% Gel) 15-30 GRAMS 15 GRAMS... UD PRN PO 05/13/16 19:00 06/12/16 18:59 Glucose (Glucose Chew Tab) 4-8 Tablets 4 Tabl... UD PRN PO 05/13/16 19:00 06/12/16 18:59 Dextrose (Dextrose 50% 50ML Syringe) 25-50ML OF 50% DW IV FOR... UD PRN IV 05/13/16 19:00 06/12/16 18:59 Glucagon (Glucagon Inj) 1 mg UD PRN SQ 05/13/16 19:00 06/12/16 18:59 Mineral Oil (Fleet Oil Enema) 133 ml DAILY PRN MT 05/14/16 13:30 06/13/16 13:29 Miscellaneous Information (Consult Glycemic Management Pharmacy) 1 ea UD PRN N/A 05/15/16 08:45 06/14/16 08:44 Polyethylene (Miralax Powder Packet) 17 gm DAILY PO 05/16/16 09:00 06/15/16 08:59 06/03/16 08:16 17 GM Ipratropium [place] (Atrovent 0.02% 0.5MG/2.5ML Neb) 0.5 mg Q6R PRN INH 05/26/16 15:15 06/25/16 15:14 Levalbuterol (Xopenex 1.25MG/ 0.5ML Neb) 1.25 mg Q6R PRN INH 05/26/16 15:15 06/25/16 15:14 Insulin Aspart (novoLOG ASPART) SLIDING SCALE G... Q6 SC 05/30/16 18:00 06/29/16 17:59 06/03/16 05:29 2 UNITS Albuterol/ Ipratropium (Duoneb) 3 ml Q2H PRN INH 06/01/16 09:30 07/01/16 09:29 06/02/16 09:30 3 ML Heparin Sodium (Porcine) (Heparin 10 Unit/ ml 5 ml Flush) 5 ml PRN PRN FLUSH 06/02/16 13:15 07/02/16 13:14 Hydromorphone HCl (Dilaudid Inj) 0.5 mg Q6H PRN IV 06/03/16 13:45 06/17/16 13:44 Prednisone (PredniSONE TAB) 20 mg DAILY PO 06/04/16 09:00 07/04/16 08:59 Pantoprazole Sodium (Protonix Tab) 40 mg BID PO 06/03/16 21:00 07/03/16 20:59 Metoprolol Tartrate (Lopressor Tab) 50 mg BID PO 06/03/16 21:00 07/03/16 20:59 Amiodarone HCl (Cordarone Tab) 400 mg BID PO 06/03/16 21:00 07/03/16 20:59 UNV I & O: 24-Hour Column 06/03/16 07:59 Intake Total 2984 ml Output Total 1180 ml Balance 1804 ml Vital Signs: Date Time Temp Pulse Resp B/P Pulse Ox O2 Delivery O2 Flow Rate FiO2 06/03/16 10:59 88 33 83/58 99 06/03/16 10:00 92 16 99 06/03/16 09:59 87 15 138/64 99 06/03/16 09:00 94 19 98 06/03/16 08:59 95 20 110/77 98 06/03/16 08:00 94 Nasal Cannula 3.0 06/03/16 08:00 95 16 99 06/03/16 07:59 98 19 120/45 98 06/03/16 07:00 61 16 141/61 100 06/03/16 06:11 61 18 174/52 99 06/03/16 05:25 60 131/62 06/03/16 04:59 60 17 131/62 99 06/03/16 04:00 36.9 06/03/16 04:00 98 Nasal Cannula 2.0 06/03/16 03:59 60 17 154/44 99 06/03/16 03:00 60 15 155/76 99 06/03/16 01:59 60 23 133/44 98 06/03/16 00:59 60 28 165/48 98 06/03/16 00:01 36.9 06/02/16 23:59 60 22 125/82 97 06/02/16 23:59 97 Nasal Cannula 2.0 06/02/16 23:53 59 137/42 06/02/16 22:59 60 18 137/42 98 06/02/16 21:59 60 21 145/45 93 06/02/16 21:03 62 21 119/49 96 06/02/16 20:00 97 Nasal Cannula 2.0 06/02/16 20:00 37.2 06/02/16 19:59 61 18 169/38 98 06/02/16 19:26 63 163/50 06/02/16 17:00 71 18 154/47 97 Nasal Cannula 3.0 06/02/16 16:00 81 18 182/68 98 Nasal Cannula 3.0 06/02/16 16:00 95 Nasal Cannula 3.0 06/02/16 13:59 63 20 168/50 100 06/02/16 13:55 37.0 77 24 167/65 99 06/02/16 13:48 68 21 167/65 98 06/02/16 13:30 70 24 99 06/02/16 13:00 70 24 99 Laboratory Results: Last 24 Hours Test 06/02/16 13:43 06/02/16 23:50 06/03/16 05:14 06/03/16 05:16 Sodium Level 148 mmol/L Potassium Level 3.5 mmol/L Chloride Level 108 mmol/L Carbon Dioxide Level 26 mmol/L Anion Gap 14.0 mmol/L Blood Urea Nitrogen 50 mg/dl Creatinine 1.20 mg/dl 1.20 mg/dl Est Creatinine Clear Calc Drug Dose 39.0 ml/min 39.0 ml/min Estimated GFR () 49.1 49.1 Estimated GFR (Non- 42.4 42.4 BUN/Creatinine Ratio 42.0 Random Glucose 218 mg/dl Calcium Level 8.7 mg/dl Bedside Glucose 261 mg/dl 208 mg/dl White Blood Count 12.03 K/uL Red Blood Count 2.74 M/uL Hemoglobin 8.5 g/dL Hematocrit 27.8 % Mean Corpuscular Volume 101.5 fL Mean Corpuscular Hemoglobin 31.0 pg Mean Corpuscular Hemoglobin Concent 30.6 g/dl RDW Standard Deviation 64.1 fL RDW Coefficient of Variation 17.4 % Platelet Count 82 K/uL Mean Platelet Volume 10.0 fL Test 06/03/16 08:40 06/03/16 10:10 Sodium Level 144 mmol/L Potassium Level 3.4 mmol/L Chloride Level 107 mmol/L Carbon Dioxide Level 29 mmol/L Anion Gap 8.0 mmol/L Blood Urea Nitrogen 49 mg/dl Creatinine 1.40 mg/dl Est Creatinine Clear Calc Drug Dose 33.8 ml/min Estimated GFR () 40.7 Estimated GFR (Non- 35.1 BUN/Creatinine Ratio 35.2 Random Glucose 262 mg/dl Calcium Level 8.1 mg/dl White Blood Count 11.72 K/uL Red Blood Count 2.83 M/uL Hemoglobin 8.7 g/dL Hematocrit 28.8 % Mean Corpuscular Volume 101.8 fL Mean Corpuscular Hemoglobin 30.7 pg Mean Corpuscular Hemoglobin Concent 30.2 g/dl RDW Standard Deviation 64.2 fL RDW Coefficient of Variation 17.3 % Platelet Count 84 K/uL Mean Platelet Volume 10.0 fL Nucleated RBC Absolute Count (auto) 0.04 K/uL Nucleated Red Blood Cells % 0.3 % Heparin-PF4 Antibody Screen NEG
[2016-06-03] MEDS: GABAPENTIN 100 MG CAP PO SCH ×2 (14:00→19:37)
[2016-06-03] MEDS: INSULIN GLARGINE SOLOSTAR 100 UNITS/ML 3 ML PEN SC SCH (14:15)
--- NOTE | 2016-06-03 14:33 | Pharmacy Progress Note ---
Glycemic Control: Progress Nt Date of Service Jun 03, 2016. Scope Glycemic Pharmacist consulted by Dr Hinton on 05/15/16 for glycemic control and to write orders per [facility] inpatient glycemic control protocol. Objective Accuchecks BSG (last 24hrs): Test 06/02/16 23:50 06/03/16 05:16 06/03/16 08:40 06/03/16 12:17 Bedside Glucose 261 mg/dl (70-90) 208 mg/dl (70-90) 322 mg/dl (70-90) Random Glucose 262 mg/dl (70-99) Laboratory Data (last 24hrs) Test 06/03/16 05:14 06/03/16 08:40 06/03/16 10:10 Creatinine 1.20 mg/dl 1.40 mg/dl White Blood Count 12.03 K/uL 11.72 K/uL Anion Gap 8.0 mmol/L BUN/Creatinine Ratio 35.2 Blood Urea Nitrogen 49 mg/dl Potassium Level 3.4 mmol/L Sodium Level 144 mmol/L HbA1c: 7% 04/18/16 Recent Pertinent Medications Outpatient Anti-diabetic Regimen: * Glipizide ER 2.5mg PO Daily The patient is currently receiving: * Basal insulin: Titrating dosing based on steroids and BSG, Last dose was Lantus 10 units SQ HS on 06/01/16 * Correctional Insulin: Novolog Correction per scale ACHS Goal Range: Low 140 mg/dL - High 180 mg/dL Correction Factor: 25 mg/dL/unit * Prandial insulin: Per carb ratio of 1 unit per 20 grams CHO consumed * Oral Agents: on hold for admission Risk Factors for Insulin Resistance: * Steroids * Diet Assessment & Plan ASSESSMENT: * 80yo T2DM female with adequate degree of outpatient control per recent A1c. Pt is maintained on oral agent monotherapy with Glipizide ER Daily * Glipizide held on admission and patient initiated on SQ basal bolus insulin regimen * Doses have been titrated daily based on BSG trends, PO intake, and steroid dosing * Max dose of insulin per day was ~ 56 units on 05/30/16 which resulted in below goal BSGs on 05/31/16. Therefore, regimen was dramatically tapered downwards to prevent hypoglycemia. * Patient with re-bound hyperglycemia today from insulin regimen taper. However , expect BSGs to slightly improve with d/c steroids (hydrocortisone d/c today, starting prednisone 20mg PO daily tomorrow). * Will re-initiate conservative weight based insulin regimen and titrate accordingly. * ADA & AACE recommend a goal blood sugar range 140-180 mg/dl for the majority of critically ill & non-critically ill patients. However, more stringent targets may be selected in individual cases. PLAN FOR INPATIENT GLYCEMIC CONTROL: * Hold outpatient oral diabetes medications * Re-Start Basal insulin with LANTUS 15 units SQ daily - first dose now * Tighten Correctional Insulin with NOVOLOG per scale ACHS or Q6hrs while NPO * Goal Range: Low 140 mg/dL - High 180 mg/dL * Correction Factor: 20 mg/dL/unit * Nutritional / Prandial insulin per carb ratio of 1 unit per 8 grams CHO consumed * Please note that the plan above was derived based on current level of insulin resistance and hospital stress. These recommendations are appropriate for inpatient admission only. Plan of care upon discharge will need to be reassessed to avoid potential outpatient hypo/hyperglycemia. Thank you.
[2016-06-03] MEDS: MONTELUKAST SOD 10 MG TAB PO SCH (19:34)
[2016-06-03] MEDS: CLONIDINE HCL 0.1 MG TAB PO SCH (19:34)
[2016-06-03] MEDS: DOCUSATE SODIUM/SENNA 50/8.6MG TAB PO SCH (19:35)
[2016-06-03] MEDS: PANTOprazole SOD 40 MG TAB PO SCH (19:35)
[2016-06-03] MEDS: AMIODARONE 200 MG TAB PO SCH (19:36)
[2016-06-03] MEDS: METOPROLOL TARTRATE 50 MG TAB PO SCH (19:36)
[2016-06-03] MEDS: MIRTAZAPINE TAB 15 MG TAB PO SCH (19:37)
[2016-06-03] MEDS ORDERED: HydrALAZINE HCL 20 MG/ML VIAL IV. PRN (20:15)
[2016-06-03] MEDS: ALBUT/IPRATROP 3MG/0.5MG NEB 3 ML VIAL INH PRN (20:16)
--- NOTE | 2016-06-03 20:21 | Progress Note ---
Internal Med Progress Note Date of Service: Jun 03, 2016. Provider Documentation: SUBJECTIVE: s/p surgery 05/30/16 for hiatal hernia afebrile NG tube and chest tube taken out today has some pain at surgery site feeling better regarding belching OBJECTIVE: Vital Signs-as noted below Exam: General-alert and awake. seems in pain ENT-normal hearing Neck-no neck masses Lungs-cta b/l no wheezing or crackles Heart-s1 and s2 heard regular rate and rhythm no murmurs Abdomen-soft bowel sounds sluggish non tender no distension Extremities-no erythema Neuro-alert and awake moves extremities Lab data as noted below. ASSESSMENT & PLAN: 80 yoF with significant heart history and valve issues admitted for increased work of breathing 2/2 CHF exacerbation and copd exacerbation. But also her chronic belching from hiatal hernia got severe and patinet is s/p Surgery on . Tolerated the surgery fine. Plan for liquid today. diet to be managed by Ct surgery. Cardiology on board for CHF and a.fib. Restarted po medications today. Amiodarone dose as per cardiology.Holding po hydralazine and nitrates for now and to restart when BP gets elevated. To taper off stress dose steroids.Lasix on hold for now.Pt/OT and transfer to tele today Belching severe mostly from hiatal hernia s/p status post left thoracotomy with Belsey Jose IV repair s/p surgery today 05/30/16 close monitor in ICU. on NG tube management as per ct surgery critical care on board. s/p NG tube and chest tube removal today stable so far Hx of a .fib currently on amiodarone drip as patient is npo restarted on po amiodarone dose as per cardiology. HTN up and down restarted po meds Lopressor and clonidine today but holding hydralazine and nitrates and lasix for now iv hydralazine prn Nutrition started on liquid diet diet to be managed by CT surgery Thrombocytopenia was placed on Lovenox post surgery which will be stopped f/u HIT studies Hospital course so far: Intial presentation with ACUTE HYPOXIC RESPIRATORY FAILURE, LIKELY MULTIFACTORIAL DUE TO ACUTE DIASTOLIC CHF AND/OR COPD EXACERBATION Presented with cough and SOB x 3 days; influenza outbreak at retirement however patient has been on prophylactic Tamilfu since 05/05 87% on room air on arrival, improved with oxygen 2L via NC Treated with steroids, Lasix and abx echo no change from previous cardiology on board Cardiology started on lower dose Losartan which was stopped secondary to arf and hyperkalemia requiring oxygen while sleeping on nocturna pulse ox study restarted Lasix 40mg daily. which is on hold for now pt/ot nebs prn currently stable will monitor MITRAL VALVE ANOMALY echo-unchanged. cardiology on board stable CONSTIPATION KU fecal retention was on lactulose stopped lactulose secondary to abdominal gas currently on miralx daily had enema currently s/p surgery Hyperkalemia k 5.3 losartan stopped had a dose of Kayexalate resolved ATRIAL FIBRILLATION on amiodarone and metoprolol rate controlled Not anticoagulated due to hx of hemorrhagic pericardial effusion and subdural hematoma s/p fall will monitor post op was on amiodarone drip post surgery back on po amiodarone SSS S/P PACER no acute issues ARF' baseline cr 1.2 to 1.3 cr 1.4 today will f/u labs. DM hgb a1c 7.0 03/2016 oral agents on hold. SSI while hospitalized will monitor GERD, HIATAL HERNIA on PPI/H2 filipe HYPOTHYROIDISM on levothyroxine DEPRESSION on sertraline DVT PROPHYLAXIS SCDs due to hx of hemorrhagic pericardial effusion and subdural hematoma placed on lovenox post surgery but platelets dropping- stopped Lovenox CODE STATUS DNR DISPO: Transfer to tele pt/ot social service for d/c planning Vital Signs: Date Time Temp Pulse Resp B/P Pulse Ox O2 Delivery O2 Flow Rate FiO2 06/03/16 18:48 36.8 83 18 134/70 100 Room Air 06/03/16 18:00 71 18 128/68 95 Nasal Cannula 3.0 06/03/16 16:59 100 15 82/43 99 06/03/16 16:45 104 19 99 06/03/16 16:30 100 21 99 06/03/16 16:15 98 20 100 06/03/16 16:00 97 Nasal Cannula 3.0 06/03/16 16:00 90 20 98 06/03/16 15:59 106 41 109/74 99 06/03/16 15:45 112 20 100 06/03/16 15:30 104 13 99 06/03/16 15:15 97 19 100 06/03/16 15:00 96 19 99 06/03/16 14:00 106 20 126/62 94 Nasal Cannula 3.0 06/03/16 12:00 97 Nasal Cannula 3.0 06/03/16 12:00 100 22 111/50 98 Nasal Cannula 3.0 06/03/16 10:59 88 33 83/58 99 06/03/16 10:00 92 16 99 06/03/16 09:59 87 15 138/64 99 06/03/16 09:00 94 19 98 06/03/16 08:59 95 20 110/77 98 06/03/16 08:00 94 Nasal Cannula 3.0 06/03/16 08:00 95 16 99 06/03/16 07:59 98 19 120/45 98 06/03/16 07:00 61 16 141/61 100 06/03/16 06:11 61 18 174/52 99 06/03/16 05:25 60 131/62 06/03/16 04:59 60 17 131/62 99 06/03/16 04:00 36.9 06/03/16 04:00 98 Nasal Cannula 2.0 06/03/16 03:59 60 17 154/44 99 06/03/16 03:00 60 15 155/76 99 06/03/16 01:59 60 23 133/44 98 06/03/16 00:59 60 28 165/48 98 06/03/16 00:01 36.9 06/02/16 23:59 60 22 125/82 97 06/02/16 23:59 97 Nasal Cannula 2.0 06/02/16 23:53 59 137/42 06/02/16 22:59 60 18 137/42 98 06/02/16 21:59 60 21 145/45 93 06/02/16 21:03 62 21 119/49 96 Lab Results: Results Past 24 Hours Test 06/02/16 23:50 06/03/16 05:14 06/03/16 05:16 06/03/16 08:40 Range/Units Bedside Glucose 261 208 70-90 mg/dl White Blood Count 12.03 4.8-10.8 K/uL Red Blood Count 2.74 4.2-5.4 M/uL Hemoglobin 8.5 12.0-16.0 g/dL Hematocrit 27.8 37-47 % Mean Corpuscular Volume 101.5 80-100 fL Mean Corpuscular Hemoglobin 31.0 25-34 pg Mean Corpuscular Hemoglobin Concent 30.6 32-36 g/dl RDW Standard Deviation 64.1 36.4-46.3 fL RDW Coefficient of Variation 17.4 11.5-14.5 % Platelet Count 82 130-400 K/uL Mean Platelet Volume 10.0 7.4-10.4 fL Creatinine 1.20 1.40 0.60-1.20 mg/dl Est Creatinine Clear Calc Drug Dose 39.0 33.8 ml/min Estimated GFR () 49.1 40.7 Estimated GFR (Non- 42.4 35.1 Sodium Level 144 136-145 mmol/L Potassium Level 3.4 3.5-5.1 mmol/L Chloride Level 107 98-107 mmol/L Carbon Dioxide Level 29 21-32 mmol/L Anion Gap 8.0 3-11 mmol/L Blood Urea Nitrogen 49 7-18 mg/dl BUN/Creatinine Ratio 35.2 10-20 Random Glucose 262 70-99 mg/dl Calcium Level 8.1 8.5-10.1 mg/dl Test 06/03/16 10:10 06/03/16 12:17 06/03/16 18:13 Range/Units White Blood Count 11.72 4.8-10.8 K/uL Red Blood Count 2.83 4.2-5.4 M/uL Hemoglobin 8.7 12.0-16.0 g/dL Hematocrit 28.8 37-47 % Mean Corpuscular Volume 101.8 80-100 fL Mean Corpuscular Hemoglobin 30.7 25-34 pg Mean Corpuscular Hemoglobin Concent 30.2 32-36 g/dl RDW Standard Deviation 64.2 36.4-46.3 fL RDW Coefficient of Variation 17.3 11.5-14.5 % Platelet Count 84 130-400 K/uL Mean Platelet Volume 10.0 7.4-10.4 fL Nucleated RBC Absolute Count (auto) 0.04 0-0 K/uL Nucleated Red Blood Cells % 0.3 % Heparin-PF4 Antibody Screen NEG NEG Bedside Glucose 322 330 70-90 mg/dl
[2016-06-03] MEDS ORDERED: NURSING VERBAL MED ORDER ONE (20:45)
[2016-06-04] VITALS (8 sets, daily range): BP systolic 105–159; BP diastolic 54–90; PULSE 60–80; TEMP 36.4–36.8; O2SAT 94–99
[2016-06-04] MEDS: LEVOTHYROXINE 50 MCG TAB PO SCH (06:10)
[2016-06-04] MEDS: INSULIN ASPART 100 UNITS/ML 3 ML PEN SC SCH ×4 (07:00→20:38)
--- NOTE | 2016-06-04 07:02 | DIAGNOSTIC IMAGING REPORT ---
CHEST ONE VIEW PORTABLE CLINICAL HISTORY: thoracotomy postoperative evaluation COMPARISON STUDY: 06/03/2016 FINDINGS: Interval removal of the left basilar chest tube. Persistent prominence of the basilar parenchymal markings left. Mild chronic prominence of pulmonary vasculature. PICC line remains in superior vena cava. No evidence pneumothorax. IMPRESSION: Unremarkable postoperative chest. Interval removal of the left basilar chest tube. No evidence for pneumothorax. Electronically signed by: Jose Keyes M.D. 06/04/2016 7:01 AM Dictated Date/Time: 06/04/2016 7:00 AM
[2016-06-04] MEDS: FLUTICASONE PROPIONATE NA SPR 16 GM BTL SCH (08:15)
[2016-06-04] MEDS: CLONIDINE HCL 0.1 MG TAB PO SCH ×2 (08:16→20:33)
[2016-06-04] MEDS: AMIODARONE 200 MG TAB PO SCH ×2 (08:17→20:33)
[2016-06-04] MEDS: FERROUS SULFATE 325 MG TAB PO SCH (08:17)
[2016-06-04] MEDS: ATORVASTATIN 20 MG TAB PO SCH (08:18)
[2016-06-04] MEDS: METOPROLOL TARTRATE 50 MG TAB PO SCH ×2 (08:18→20:34)
[2016-06-04] MEDS: POLYETHYLENE (MIRALAX) 17 GM PACK PO SCH (08:18)
[2016-06-04] MEDS: PANTOprazole SOD 40 MG TAB PO SCH ×2 (08:19→20:33)
[2016-06-04] MEDS: GABAPENTIN 100 MG CAP PO SCH ×3 (08:19→20:35)
[2016-06-04] MEDS: SERTRALINE HCL 100 MG TAB PO SCH (08:20)
[2016-06-04] MEDS: DOCUSATE SODIUM/SENNA 50/8.6MG TAB PO SCH ×2 (08:20→20:33)
[2016-06-04] MEDS: INSULIN GLARGINE SOLOSTAR 100 UNITS/ML 3 ML PEN SC SCH ×2 (08:24→20:39)
[2016-06-04] MEDS: ALBUT/IPRATROP 3MG/0.5MG NEB 3 ML VIAL INH PRN (11:29)
--- NOTE | 2016-06-04 11:34 | Progress Note ---
Internal Med Progress Note Date of Service: Jun 04, 2016. Provider Documentation: SUBJECTIVE: The patient was seen and examined Clinically much better today denies any more Belching NO Chest pain,palpitation ,SOB N) abdominal pain ,nausea and or vomiting OBJECTIVE: Vital Signs-as noted below Exam: General-Minimal distress at rest Very Anxious Eyes-Normal ENT-normal Neck-supple Lungs-Decreased breath sound bilaterally Heart-Irregular,no murmur Abdomen-Soft,huge hiatal hernia ,no obstruction Extremities-no edema Neuro-AAOx3 Lab data as noted below. ASSESSMENT & PLAN: 80 yoF with significant heart history and valve issues admitted for increased work of breathing 2/2 CHF exacerbation and copd exacerbation. Severe Belching Secondary huge hiatal hernia s/p status post left thoracotomy with Belsey Jose IV repair on 05/30/2016 Was in ICU following surgery Has been in Tele now s/p removal NG tube and chest tube removal Clinically much better now 06/04/16 Will have Liquid diet till of this month Can be moved to [facility] Saeed[facility] Was on amiodarone drip as patient is npo Restarted on po amiodarone, dose as per cardiology. Clinically stable and the rate is controlled HTN Restarted po meds Lopressor and clonidine BP is still running high at times iv hydralazine prn Nutrition Started on liquid diet and will continue till of this month Thrombocytopenia Was placed on Lovenox post surgery which will be stopped f/u HIT studies Hospital course so far: Intial presentation with ACUTE HYPOXIC RESPIRATORY FAILURE, LIKELY MULTIFACTORIAL DUE TO ACUTE DIASTOLIC CHF AND/OR COPD EXACERBATION Presented with cough and SOB x 3 days; influenza outbreak at [facility] however patient has been on prophylactic Tamilfu since 05/05 87% on room air on arrival, improved with oxygen 2L via NC Treated with steroids, Lasix and abx ECHO did not show any significant change compared with prior test Cardiology on board Cardiology started on lower dose Losartan which was stopped secondary to arf and hyperkalemia Requiring oxygen while sleeping on nocturna pulse ox study Prednisone on a tapering dose MITRAL VALVE ANOMALY ECHO::ECHO:: * Sinus rhythm was present during the echocardiogram. * There is a 0.6cm x 0.6cm mobile echodensity attached to ventricular surface of the mitral valve annulus near the left ventricular outflow tract. * Calcified mitral apparatus. * The aortic valve is moderately calcified. * Mild valvular aortic stenosis. * Moderate aortic regurgitation. * The left ventricular wall motion is normal. * Ejection Fraction = 60-65%. * Grade I diastolic dysfunction, (abnormal relaxation pattern). * Compared to the most recent echocardiogram, the echodensity is unchanged. cardiology on board stable ATRIAL FIBRILLATION on amiodarone and metoprolol rate controlled Not anticoagulated due to hx of hemorrhagic pericardial effusion and subdural hematoma s/p fall was on amiodarone drip post surgery back on po amiodarone SSS S/P PACER no acute issues ARF' baseline cr 1.2 to 1.3 cr 1.4 today will f/u labs. DM hgb a1c 7.0 03/2016 oral agents on hold. SSI while hospitalized will monitor GERD, HIATAL HERNIA on PPI/H2 filipe HYPOTHYROIDISM on levothyroxine DEPRESSION on sertraline DVT PROPHYLAXIS SCDs due to hx of hemorrhagic pericardial effusion and subdural hematoma Was on on Lovenox post surgery but platelets dropping- stopped Lovenox CODE STATUS DNR DISPO: Transfer to CT pt/ot social service for d/c planning Vital Signs: Date Time Temp Pulse Resp B/P Pulse Ox O2 Delivery O2 Flow Rate FiO2 06/04/16 08:00 94 06/04/16 07:17 36.4 60 20 159/90 99 Nasal Cannula 3.0 06/04/16 04:58 36.7 60 16 147/64 99 06/04/16 04:00 Nasal Cannula 3.0 06/04/16 00:00 Nasal Cannula 3.0 06/03/16 20:16 68 16 98 Nasal Cannula 2.0 06/03/16 20:00 Nasal Cannula 3.0 06/03/16 18:48 36.8 83 18 134/70 100 Room Air 06/03/16 18:00 71 18 128/68 95 Nasal Cannula 3.0 06/03/16 16:59 100 15 82/43 99 06/03/16 16:45 104 19 99 06/03/16 16:30 100 21 99 06/03/16 16:15 98 20 100 06/03/16 16:00 97 Nasal Cannula 3.0 06/03/16 16:00 90 20 98 06/03/16 15:59 106 41 109/74 99 06/03/16 15:45 112 20 100 06/03/16 15:30 104 13 99 06/03/16 15:15 97 19 100 06/03/16 15:00 96 19 99 06/03/16 14:00 106 20 126/62 94 Nasal Cannula 3.0 06/03/16 12:00 97 Nasal Cannula 3.0 06/03/16 12:00 100 22 111/50 98 Nasal Cannula 3.0 Lab Results: Results Past 24 Hours Test 06/03/16 12:17 06/03/16 18:13 06/03/16 21:13 06/04/16 06:48 Range/Units Bedside Glucose 322 330 245 171 70-90 mg/dl
--- NOTE | 2016-06-04 11:52 | SURGERY PROGRESS NOTE ---
DATE: 06/04/2016 SUBJECTIVE: Ms. Robledo was seen today on 06/04/2016. She feels good. We are weaning her oxygen down. She is up on telemetry and now will be moved to a monitored bed. She is swallowing well. She is having some pain. She has no wheezing whatsoever, but she has some decreased breath sounds on the right. Incision is clean. Her x-ray looks good. At this point, her discharge will be dependent on her ultimate disposition and her physical activity. We are going to push her to move today.
--- NOTE | 2016-06-04 12:02 | Cardiology Follow-Up ---
Subjective Subjective Date of Service: Jun 04, 2016. Pt evaluation today including: conversation w/ patient, physical exam, chart review, lab review, review of studies, review of inpatient medication list Additional Details: Pt seen and examined, oob in chair. States that she feels well but visually appears weaker than yesterday. Denies cp, sob, palpitations, lightheadedness or dizziness. Tele reviewed: converted to sinus rhythm last PM. Problem List Medical Problems: (1) Abdominal pain Status: Acute (2) Chest pain Status: Acute (3) CHF (congestive heart failure) Status: Acute (4) Chronic obstructive pulmonary disease Status: Acute (5) Constipation Status: Acute (6) Cough Status: Acute (7) Hypoxia Status: Acute (8) Left sided chest pain Status: Acute (9) Pneumonia Status: Acute (10) Shortness of breath Status: Acute (11) Symptomatic bradycardia Status: Acute (12) Traumatic intracranial hemorrhage Status: Acute Review of Systems Respiratory: No cough, No dyspnea at rest, No hemoptysis, No shortness of breath, No sputum, No wheezing Cardiac: No PND, No chest pain, No claudication, No edema, No orthopnea, No palpitations, No problem reported, No see HPI Abdomen: + nausea Objective Vital Signs Last Vital Signs Documentation Date Time Temp Pulse Resp B/P Pulse Ox O2 Delivery O2 Flow Rate FiO2 06/04/16 11:29 80 16 96 Nasal Cannula 3.0 06/04/16 11:25 36.4 108/54 Physical Exam: General Appearance: WD/WN, no apparent distress Eyes: bilateral eyes EOMI, bilateral eyes PERRL, bilateral eyes normal inspection ENT: normal ENT inspection, hearing grossly normal, pharynx normal Neck: supple, no adenopathy, thyroid normal, no JVD, no carotid bruits, trachea midline Respiratory/Chest: chest non-tender, lungs clear, no respiratory distress, + pertinent finding (decreased breath sounds) Cardiovascular: regular rate, rhythm, no JVD, + systolic murmur (2/6 mid to late lemuel, rsb, 2nd ics, no radiation) Abdomen: normal bowel sounds, non tender, soft, no organomegaly Extremities: non-tender, normal inspection, no pedal edema, no calf tenderness Neurologic/Psychiatric: youth counselor II-XII nml as 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 Paroxysmal atrial fibrillation converted to sinus cont amio 400mg bid today, will change back to usual dose tomorrow cont metoprolol deemed not an anticoagulation candidate secondary to mechanical fall with subdural hematoma 2. diastolic dysfunction stable beta filipe to be resumed hold lasix for now, follow volume status clinically 3. hypertension can hold off on isosorbide and hydralazine for now, may restart as bp allows ok to transfer to floor from cardiac standpoint.
--- NOTE | 2016-06-04 13:46 | Pharmacy Progress Note ---
Glycemic Control: Progress Nt Date of Service Jun 04, 2016. Scope Glycemic Pharmacist consulted by Dr Hinton on 05/15/16 for glycemic control and to write orders per [facility] inpatient glycemic control protocol. Objective Accuchecks BSG (last 24hrs): Test 06/03/16 18:13 06/03/16 21:13 06/04/16 06:48 06/04/16 12:29 Bedside Glucose 330 mg/dl (70-90) 245 mg/dl (70-90) 171 mg/dl (70-90) 190 mg/dl (70-90) Recent Pertinent Medications Outpatient Anti-diabetic Regimen: * Glipizide ER 2.5mg PO Daily The patient is currently receiving: * Basal insulin: Lantus 15 units SQ daily * Correctional Insulin: Novolog Correction per scale ACHS Goal Range: Low 140 mg/dL - High 180 mg/dL Correction Factor: 20 mg/dL/unit * Prandial insulin: Per carb ratio of 1 unit per 8 grams CHO consumed * Oral Agents: on hold for admission Risk Factors for Insulin Resistance: * Steroids * Diet Assessment & Plan ASSESSMENT: * 80yo T2DM female with adequate degree of outpatient control per recent A1c. Pt is maintained on oral agent monotherapy with Glipizide ER Daily * Glipizide held on admission and patient initiated on SQ basal bolus insulin regimen * Doses have been titrated daily based on BSG trends, PO intake, and steroid dosing * Max dose of insulin per day was ~ 56 units on 05/30/16 which resulted in below goal BSGs on 05/31/16. Therefore, regimen was dramatically tapered downwards to prevent hypoglycemia. * Patient with re-bound hyperglycemia 2/3 from insulin regimen taper & no basal insulin restarted. However, hydrocortisone d/c, & changed to starting prednisone 20mg PO daily. Should see improvement in BSGs with this step down in steroid dosing. * Pt received 32 units of insulin over the past 24hrs. Expect total daily insulin needs to decrease over the next day d/t steroid taper and decreased PO intake. Will empirically reduce insulin regimen and continue to evaluate and titrate accordingly. * ADA & AACE recommend a goal blood sugar range 140-180 mg/dl for the majority of critically ill & non-critically ill patients. However, more stringent targets may be selected in individual cases. Will use a slightly more stringent target of 120-160mg/dl based on tight glycemic control at baseline. PLAN FOR INPATIENT GLYCEMIC CONTROL: * Hold outpatient oral diabetes medications * DECREASE Basal insulin with LANTUS 10 units SQ daily * Administer 1/2 dose if BSG < 110 mg/dl * Tighten Correctional Insulin with NOVOLOG per scale ACHS or Q6hrs while NPO * Goal Range: Low 120 mg/dL - High 160 mg/dL * Correction Factor: 30 mg/dL/unit * Nutritional / Prandial insulin per carb ratio of 1 unit per 10 grams CHO consumed * Please note that the plan above was derived based on current level of insulin resistance and hospital stress. These recommendations are appropriate for inpatient admission only. Plan of care upon discharge will need to be reassessed to avoid potential outpatient hypo/hyperglycemia. Thank you.
[2016-06-04] MEDS: BOOST GLUCOSE CONTROL PO SCH (17:00)
[2016-06-04] MEDS: MONTELUKAST SOD 10 MG TAB PO SCH (22:03)
[2016-06-04] MEDS: MIRTAZAPINE TAB 15 MG TAB PO SCH (22:03)
[2016-06-05] VITALS (13 sets, daily range): BP systolic 103–176; BP diastolic 45–74; PULSE 59–68; TEMP 36.5–36.9; O2SAT 84–98
[2016-06-05 05:21] LABS: HEMATOCRIT 28.5 % (37-47); MEAN CELL VOLUME 100.4 fL (80-100); MEAN CORPUSCULAR HEMOGLOBIN 31.3 pg (25-34); MEAN CORPUSCULAR HGB CONC 31.2 g/dl (32-36); RED BLOOD COUNT 2.84 M/uL (4.2-5.4); WHITE BLOOD COUNT 9.19 K/uL (4.8-10.8)
[2016-06-05 05:36] LABS: MEAN PLATELET VOLUME 9.7 fL (7.4-10.4); PLATELET COUNT 89 K/uL (130-400)
[2016-06-05] MEDS: LEVOTHYROXINE 50 MCG TAB PO SCH (05:50)
[2016-06-05 06:02] LABS: BUN/CREATININE RATIO 48.1 (10-20); CALCIUM 8.1 mg/dl (8.5-10.1); CREATININE 1.1 mg/dl (0.60-1.20); MAGNESIUM 2.7 mg/dl (1.8-2.4)
[2016-06-05] MEDS: POLYETHYLENE (MIRALAX) 17 GM PACK PO SCH (08:00)
[2016-06-05] MEDS: FLUTICASONE PROPIONATE NA SPR 16 GM BTL SCH (08:08)
[2016-06-05] MEDS: CLONIDINE HCL 0.1 MG TAB PO SCH ×2 (08:08→20:03)
[2016-06-05] MEDS: METOPROLOL TARTRATE 50 MG TAB PO SCH ×2 (08:09→20:03)
[2016-06-05] MEDS: AMIODARONE 200 MG TAB PO SCH ×2 (08:09→16:07)
[2016-06-05] MEDS: FERROUS SULFATE 325 MG TAB PO SCH (08:09)
[2016-06-05] MEDS: ATORVASTATIN 20 MG TAB PO SCH (08:09)
[2016-06-05] MEDS: DOCUSATE SODIUM/SENNA 50/8.6MG TAB PO SCH ×2 (08:10→20:04)
[2016-06-05] MEDS: SERTRALINE HCL 100 MG TAB PO SCH (08:10)
[2016-06-05] MEDS: GABAPENTIN 100 MG CAP PO SCH ×3 (08:10→20:04)
[2016-06-05] MEDS: PANTOprazole SOD 40 MG TAB PO SCH ×2 (08:10→20:04)
[2016-06-05] MEDS: INSULIN GLARGINE SOLOSTAR 100 UNITS/ML 3 ML PEN SC SCH (08:19)
[2016-06-05] MEDS: BOOST GLUCOSE CONTROL PO SCH ×3 (09:07→16:07)
[2016-06-05] MEDS: INSULIN ASPART 100 UNITS/ML 3 ML PEN SC SCH ×4 (09:09→20:17)
--- NOTE | 2016-06-05 10:30 | DIAGNOSTIC IMAGING REPORT ---
CHEST ONE VIEW PORTABLE CLINICAL HISTORY: s/p thoracotomy postoperative evaluation COMPARISON STUDY: 06/04/2016 FINDINGS: Slightly progressive limited left hemithoracic infiltrate. Small persistent left effusion. Slight accentuation interstitial markings right hemithorax unchanged. Good position of a permanent bipolar cardiac pacemaker as well as a central PICC catheter. IMPRESSION: Slightly progressive parenchymal infiltrative change left midlung with unchanging consolidative and/or effusion change left base Electronically signed by: Jose Keyes M.D. 06/05/2016 10:29 AM Dictated Date/Time: 06/05/2016 10:28 AM
--- NOTE | 2016-06-05 11:14 | Pharmacy Progress Note ---
Glycemic Control: Progress Nt Date of Service Jun 05, 2016. Scope Glycemic Pharmacist consulted by Dr Hinton on 05/15/16 for glycemic control and to write orders per [facility] inpatient glycemic control protocol. Objective Accuchecks BSG (last 24hrs): Test 06/04/16 12:29 06/04/16 16:27 06/04/16 19:58 06/05/16 05:05 Bedside Glucose 190 mg/dl (70-90) 257 mg/dl (70-90) 280 mg/dl (70-90) Random Glucose 98 mg/dl (70-99) Laboratory Data (last 24hrs) Test 06/05/16 05:05 Anion Gap 7.0 mmol/L BUN/Creatinine Ratio 48.1 Blood Urea Nitrogen 53 mg/dl Creatinine 1.10 mg/dl Potassium Level 4.0 mmol/L Sodium Level 148 mmol/L White Blood Count 9.19 K/uL Recent Pertinent Medications Outpatient Anti-diabetic Regimen: * glipizide ER 2.5mg PO daily * A1c = 7% 03/2016 The patient is currently receiving: * Basal insulin: Lantus 10 units q AM - hold if BSG is less than 110mg/dL * Correctional Insulin: NovoLog Correction per scale AC/HS Goal Range: Low 120 mg/dL - High 160 mg/dL Correction Factor: 30 mg/dL/unit * Prandial insulin: Per carb ratio of 1 unit per 10 grams CHO consumed Risk Factors for Insulin Resistance: * Steroids: Prednisone 20mg PO daily * Diet: Full liquid Assessment & Plan ASSESSMENT: * ADA & AACE recommend a goal blood sugar range 140-180 mg/dl for the majority of critically ill & non-critically ill patients. However, more stringent targets may be selected in individual cases. 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 * Outpatient control appropriate based on A1c * Currently, experiencing hyperglycemia secondary to BID prednisone * Tighten NovoLog parameters * add additional Accu-checks overnight until euglycemic * Taper insulin doses at steroids decrease * Fasting BSG elevated both yesterday and today * one time dose of Lantus and then reassess need for basal insulin CURRENT: 05/31/16 * BSGs have been labile over the past few days secondary to change in eating habits. * Steroids changed abruptly with trip to the OR - * Ms Robledo very susceptible to steroid induced hyperglycemia (when eating) - continue to monitor * Currently NPO after hernia repair * likely insulin needs will decrease x1-2 days post op for this reason - decrease insulin doses * NovoLog parameters changed by provider this AM * continue with Epifanio's orders at this time and titrate as needed 06/01/16 * Patient has been NPO for >24 hours at this time and insulin requirements have diminished. * Only 10 units of insulin (all Lantus) given on 05/31 and BSGs never above 160mg /dL - Will further hold additional Lantus at this time as BSGs are below goal range currently * Steroids are being tapered * will continue to monitor and adjust insulin regimen as needed (when Pat begins eating) * NPO likely for the remainder of today * continue to hold on all insulin except for correctional if hyperglycemia occurs 06/05/16 * Insulin needs decreasing as steroids tapered (32 units on 06/03 --> 25 units on 06/04) * suspect a decrease in insulin doses will be needed again today * Fasting BSG below 100mg/dL today * full dose Lantus given despite half dose parameters - continue to monitor BSGs * futher decrease Lantus dose and base of BSG * Slight rise in BSGs throughout the day secondary to AM prednisone dosing, however today BSGs remain below goal despite breakfast * continue same NovoLog parameters with the exception of goal range (increase to 140mg/dL based on age and risk of hypoglycemia) PLAN FOR INPATIENT GLYCEMIC CONTROL: * Basal insulin: Lantus per BSG * BSG less than 120mg/dL - Hold Lantus * BSG 120-140mg/dL - Lantus 5 units * BSG >140mg/dL - Lantus 10 units * Correction/Prandial insulin: NovoLog AC and HS or q6H when NPO * Correction factor to 30mg/dL/unit * Carb ratio to 1 unit per 10 g of CHO consumed * Goal range: 140-180mg/dL per ADA recommendations * A1c - current * added to discharge instructions RECOMMENDATIONS FOR DISCHARGE: * If no steroids at d/c - continue home glipizide. * Please note that the plan above was derived based on current level of insulin resistance and hospital stress. These recommendations are appropriate for inpatient admission only. Plan of care upon discharge will need to be reassessed to avoid potential outpatient hypo/hyperglycemia. Thank you.
[2016-06-05] MEDS: ALBUT/IPRATROP 3MG/0.5MG NEB 3 ML VIAL INH PRN ×3 (11:35→23:47)
[2016-06-05] MEDS ORDERED: CLINDAMYCIN IV 600 MG in DEXTROSE 5% ADD-VANTAGE 50ML 50 ML IV ONE (12:00)
--- NOTE | 2016-06-05 13:04 | Progress Note ---
Progress Note Called by RN that pt. was to go to radiology for CXR but had desaturation; CXR therefore changed to portable. Pt. had oxygen increased and was doing well but was noted to have additional episodes of desaturation. CXR showed concern for infiltrative change at left base. IM service was contacted as well--after there review of case pt. was placed on clindamycin to cover possible aspiration pneumonia. Pt. to be transferred to tele. Dr. Miller aware and may perform FOB later today based on pt's clinical status.
[2016-06-05] MEDS ORDERED: ACETYLCYSTEINE 20% INHAL SOLN ***DISPENSED BY RESP. INH SCH (15:00)
--- NOTE | 2016-06-05 16:42 | Progress Note ---
Internal Med Progress Note Date of Service: Jun 05, 2016. Provider Documentation: SUBJECTIVE: The patient was seen and examined Complained SOB and noted to have low saturation Required Musk and Nonrebreather to maintain saturation Patient was transferred to Telemetry Unit OBJECTIVE: Vital Signs-as noted below Exam: General-Moderate distress at rest Very Anxious and moderate SOB at rest Eyes-Normal ENT-normal Neck-supple Lungs-Decreased breath sound bilaterally Heart-Irregular,no murmur Abdomen-Soft,huge hiatal hernia ,no obstruction Extremities-no edema Neuro-AAOx3 Lab data as noted below. ASSESSMENT & PLAN: 80 yoF with significant heart history and valve issues admitted for increased work of breathing 2/2 CHF exacerbation and copd exacerbation. Hypoxemia with SOB CXR-no significant finding bur may have infiltration /Pneumonia Started on IV Clinda ,Nebs and Mucomyst Evaluated by Thoracic Surgery Transferred to Tele May need Bronchoscopy Severe Belching Secondary huge hiatal hernia s/p status post left thoracotomy with Belsey Jose IV repair on 05/30/2016 Was in ICU following surgery Has been in Tele now s/p removal NG tube and chest tube removal Clinically much better now 06/04/16 Will have Liquid diet till of this month Hx of kristina sylvester Was on amiodarone drip as patient is npo Restarted on po amiodarone, dose as per cardiology. Clinically stable and the rate is controlled HTN Restarted po meds Lopressor and clonidine BP is still running high at times iv hydralazine prn Nutrition Started on liquid diet and will continue till of this month Thrombocytopenia Was placed on Lovenox post surgery which will be stopped f/u HIT studies Hospital course so far: Intial presentation with ACUTE HYPOXIC RESPIRATORY FAILURE, LIKELY MULTIFACTORIAL DUE TO ACUTE DIASTOLIC CHF AND/OR COPD EXACERBATION Presented with cough and SOB x 3 days; influenza outbreak at snf however patient has been on prophylactic Tamilfu since 05/05 87% on room air on arrival, improved with oxygen 2L via NC Treated with steroids, Lasix and abx ECHO did not show any significant change compared with prior test Cardiology on board Cardiology started on lower dose Losartan which was stopped secondary to arf and hyperkalemia Requiring oxygen while sleeping on nocturna pulse ox study Prednisone on a tapering dose MITRAL VALVE ANOMALY ECHO::ECHO:: * Sinus rhythm was present during the echocardiogram. * There is a 0.6cm x 0.6cm mobile echodensity attached to ventricular surface of the mitral valve annulus near the left ventricular outflow tract. * Calcified mitral apparatus. * The aortic valve is moderately calcified. * Mild valvular aortic stenosis. * Moderate aortic regurgitation. * The left ventricular wall motion is normal. * Ejection Fraction = 60-65%. * Grade I diastolic dysfunction, (abnormal relaxation pattern). * Compared to the most recent echocardiogram, the echodensity is unchanged. cardiology on board stable ATRIAL FIBRILLATION on amiodarone and metoprolol rate controlled Not anticoagulated due to hx of hemorrhagic pericardial effusion and subdural hematoma s/p fall was on amiodarone drip post surgery back on po amiodarone SSS S/P PACER no acute issues ARF' baseline cr 1.2 to 1.3 cr 1.4 today will f/u labs. DM hgb a1c 7.0 03/2016 oral agents on hold. SSI while hospitalized will monitor GERD, HIATAL HERNIA on PPI/H2 filipe HYPOTHYROIDISM on levothyroxine DEPRESSION on sertraline DVT PROPHYLAXIS SCDs due to hx of hemorrhagic pericardial effusion and subdural hematoma Was on on Lovenox post surgery but platelets dropping- stopped Lovenox CODE STATUS DNR DISPO: Transfer to [place] pt/ot social service for d/c planning Vital Signs: Date Time Temp Pulse Resp B/P Pulse Ox O2 Delivery O2 Flow Rate FiO2 06/05/16 15:19 36.6 67 22 115/48 98 Venturi Mask 9.0 06/05/16 14:15 60 16 98 Venturi Mask 35 06/05/16 13:45 61 20 103/45 95 Venturi Mask 35 06/05/16 13:30 36.7 60 16 98 3.0 06/05/16 11:35 62 16 84 Nasal Cannula 3.0 06/05/16 08:00 Nasal Cannula 2.0 06/05/16 07:46 36.7 64 18 129/70 95 Nasal Cannula 2.0 06/04/16 23:38 36.6 71 20 130/77 97 Nasal Cannula 2.0 06/04/16 20:00 Nasal Cannula 3.0 Lab Results: Results Past 24 Hours Test 06/04/16 19:58 06/05/16 05:05 06/05/16 07:41 06/05/16 11:47 Range/Units Bedside Glucose 280 91 91 70-90 mg/dl White Blood Count 9.19 4.8-10.8 K/uL Red Blood Count 2.84 4.2-5.4 M/uL Hemoglobin 8.9 12.0-16.0 g/dL Hematocrit 28.5 37-47 % Mean Corpuscular Volume 100.4 80-100 fL Mean Corpuscular Hemoglobin 31.3 25-34 pg Mean Corpuscular Hemoglobin Concent 31.2 32-36 g/dl RDW Standard Deviation 60.0 36.4-46.3 fL RDW Coefficient of Variation 16.3 11.5-14.5 % Platelet Count 89 130-400 K/uL Mean Platelet Volume 9.7 7.4-10.4 fL Sodium Level 148 136-145 mmol/L Potassium Level 4.0 3.5-5.1 mmol/L Chloride Level 109 98-107 mmol/L Carbon Dioxide Level 32 21-32 mmol/L Anion Gap 7.0 3-11 mmol/L Blood Urea Nitrogen 53 7-18 mg/dl Creatinine 1.10 0.60-1.20 mg/dl Est Creatinine Clear Calc Drug Dose 44.5 ml/min Estimated GFR () 54.5 Estimated GFR (Non- 47.0 BUN/Creatinine Ratio 48.1 10-20 Random Glucose 98 70-99 mg/dl Calcium Level 8.1 8.5-10.1 mg/dl Magnesium Level 2.7 1.8-2.4 mg/dl
[2016-06-05] MEDS: ACETYLCYSTEINE 20% INHAL SOLN ***DISPENSED BY RESP. INH SCH ×2 (19:15→23:48)
[2016-06-05] MEDS: ALBUTEROL 0.083% NEBU SOLN 3 ML VIAL INH PRN (19:16)
[2016-06-05] MEDS: CLINDAMYCIN IV 600 MG in DEXTROSE 5% ADD-VANTAGE 50ML 50 ML IV SCH (19:55)
[2016-06-05] MEDS: MIRTAZAPINE TAB 15 MG TAB PO SCH (20:04)
[2016-06-05] MEDS: MONTELUKAST SOD 10 MG TAB PO SCH (20:04)
--- NOTE | 2016-06-05 22:06 | PULMONARY CONSULTATION ---
DATE OF CONSULTATION: 06/05/2016 HISTORY OF PRESENT ILLNESS: The patient is an 80-year-old female, who was moved down to the second floor intensive care unit and Dr. Rosas has asked me to evaluate the patient from a pulmonary standpoint. History is rather complicated. She was admitted here with congestive heart failure initially on 05/13/2016. Apparently, [facility] a [facility] and a chest x-ray suggested some fluid overload. She was given Levaquin, Lasix and nebulizer treatment in the Emergency Room on the . For her cardiology evaluation, she is generally followed by Dr. Blancas and wax specialist from [facility]. She initially was seen by Dr. Deon Rodriguez on 05/14/2016 for shortness of breath. 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 She did have an esophageal echocardiogram which suggested that. She has also had a history of paroxysmal atrial fibrillation of the subdural hematoma after falling in November 2015, sick sinus syndrome with a pacer implantation. Nonetheless, she was treated appropriately with antibiotics and diuretics. Echocardiogram performed on the revealed left ventricular ejection fraction of 60-65% with normal RV, mild left atrial dilatation, normal right atrium with abnormalities in the mitral valve which is noted as above. She continued to have problems with difficulty with swallowing and burping and reflux, has a history of Mckeon's esophagus, was seen by Dr. Rosas on 05/20/2016 and was noted to have a recurrent hiatal hernia. Apparently, she had repair of her hernia in the past. Nonetheless, because of her significant symptoms she received cardiology and internal medicine evaluations and on 05/30/2016 underwent surgical correction of the hiatal hernia. She is a resident of [facility] and postop actually did fairly well. She did have atrial fibrillation, had been seen by Dr. Mills and a wax specialist of [facility] and eventually was placed on amiodarone. She was also seen by Dr. Shukla several times, the last evaluation on the . There is a history of COPD, but when I spoke with the patient she only smoked from about age 14 to age 20 about a pack a week. She does use some inhalers periodically. I believe most of her respiratory problems have been probable diastolic dysfunction. By the , she was day #4 post-left thoracotomy, had a small pneumothorax, her chest tubes were eventually removed. She had some hypoxemia with oxygen saturation of 87% on 2 liters, placed on prednisone and had an NG tube placed that was removed. She was transferred up to the floor and then transferred back down to telemetry to room #241/1 today. In reviewing the notes, she has actually been fairly stable. She was swallowing well and had some mild discomfort, but otherwise looked fairly good. She remained very weak according to the notes. She was seen by Dr. Mills yesterday and had a good examination with improvement in diastolic heart failure, paroxysmal atrial fibrillation had converted to sinus rhythm, diastolic heart failure was improved and beta blockers were to be resumed. Presently she is in telemetry with a respiratory rate of 18, received Mucomyst treatment; she gets that every 6 hours. She is able to talk, but remains very weak. She has difficulty with sitting up, it takes 2 or 3 of us to help to sit her up. She has difficulty with lifting her arms up off the bed as well. She denies cough, but remains weak. She has not had any fevers or night sweats. She states she may have a bit of coughing after eating and that has been a chronic problem for her. I am not sure whether she thinks this might be heartburn. On a 35% Venturi mask, her oxygen saturation is 98% after the treatment. PAST MEDICAL HISTORY: Well outlined in her records; includes diastolic heart failure, possible chronic obstructive lung disease although I think that may be a tenuous diagnosis, pneumonia, bradycardia with sick sinus syndrome, traumatic intracranial hemorrhage, abdominal pain and obesity. FAMILY HISTORY: Father from cancer, site unknown. Mother , had breast and bladder cancer. Her mother apparently had some lung disease. SOCIAL HISTORY: She really only smoked for about 3 or 4 years about a pack a week. She is not an alcohol user. From an occupational standpoint, she has not had any industrial exposures. ALLERGIES: TO PENICILLIN WHICH CAUSES RASH, MORPHINE CAUSES NAUSEA AND CODEINE CAUSES NAUSEA. ACCORDING TO THE PATIENT MADE HER A LITTLE CONFUSED. MEDICATIONS: Noted. ENVIRONMENTAL HISTORY: At [facility] is unremarkable. She had been treated with Tamiflu for 10 days for flu-like illness before admission here in April. PHYSICAL EXAMINATION: Her vital signs are stable. Her blood pressure is 103/45, respiratory rate 16, oxygen saturation 98% on 35% Venturi mask. Her pulse is 60 and regular and she is afebrile. Her weight is 102.1 kilograms, that is with a built-in bed scale and it is a new bed scale. She was 96.3 kilograms on 31 May and according to what I can glean from the records, she generally is about 92 kilograms. According to nurses' note, she has been fairly stable. She was just sent up from PCU yesterday to the floor, was alert and oriented and had no complaints. On 3 liters of oxygen her saturation looked good. PICC line was intact. HEENT: She has a hearing aid in the left ear. Eye exam is unremarkable. No telangiectasias noted. No conjunctival hemorrhages noted. Nose exam unremarkable with minimal excoriations in the left naris. NECK: There is no neck vein distention or HJR. No subcutaneous emphysema is noted. Expansion of the thorax actually was fairly good with deep inspiration, but she looks weak. She has a weak shoulder shrug and weak arm raise. HEART: Regular rate and rhythm. I do not detect any diastolic murmurs or gallops. She has a 2/6 mid to late systolic murmur heard at the apex. LUNGS: Reveal decreased breath sounds with some bronchial breath sounds at the left base and few crackles at the right base. It was difficult to get her to take a full deep breath and sit her up because she needs considerable help doing that. ABDOMEN: Soft and obese, nontender. EXTREMITIES: She has no cyanosis, clubbing or edema. SCDs are in place. DATA: Chest x-ray reveals some consolidation of the left base with lots of left hemidiaphragm shadow. There are also some alveolar type infiltrates in the left lower lobe superior to the diaphragm and in the right lower lobe. She may have a small effusion at the left base as well. She did have a CT of the chest done on 05/23/2016 and that reveals the patient to be in good position with a large sliding hiatal hernia with part of the stomach in the chest, large amount of debris in the chest. A 5 mm left upper lobe nodule was noted with several smaller nodular densities noted as well. White count is 9.19, hemoglobin and hematocrit 8.9 and 28.5% with macrocytic indices and a platelet count of 89,000. Sodium 148, BUN 53, creatinine 1, glucose is in the 91-280 range. Magnesium is 2.7. Heparin antibody screen is negative. Urinalysis from 05/13/2016 looked good. MRSA DNA surveillance screen is unremarkable. Sputum Gram stain from 16 May showed squamous cells with contamination of specimen. IMPRESSION: 1. Respiratory insufficiency with hypercapnia. This probably is related to profound weakness in the postoperative state. She has been hospitalized for almost a month and I think has perhaps critical care myopathy associated with just profound weakness from inactivity. She also has an infiltrative process at the left base consistent with pneumonia. This could be also related to the hiatal hernia surgery as well with small effusions, some atelectasis, although I do not hear atelectasis upon listening to the patient. 2. Atrial fibrillation, converted. 3. Possible chronic obstructive lung disease. I think if she does have chronic obstructive pulmonary disease it must be very minimal and I do not think is a significant problem for her. RECOMMENDATIONS: 1. At this point, I will continue on the Venturi mask 35% and adjust that appropriately. 2. I will discontinue the Mucomyst. It can cause significant bronchospasm and fairly acute bronchitis. In the meantime, I will continue on the Ventolin 4 times a day just to enhance mucociliary clearance. 3. I will taper the prednisone to 18 mg daily and taper that down fairly quickly if that is used for her pulmonary disease, and,I would discontinue the Singulair for now, it has been known to cause thrombocytopenia and even pulmonary hemorrhage syndrome. SHE IS ALLERGIC TO PENICILLIN, so will need to avoid Zosyn. I think that Cleocin will be adequate for right now. We will need to follow her BUN and creatinine carefully. I do not think her weight is accurate from today from 94 pounds on the 4th to 102 pounds on the 6th because her in's and out's does not support that, but we need to watch her for heart failure as well since she has a history of diastolic heart failure. Thanks for asking me to evaluate Ms. Robledo. Physical therapy will be helpful in getting her up and out of bed. Would be extremely helpful even with the degree of hypoxemia she has now. I will be glad to follow along with you during her hospital stay. [facility]
[2016-06-06] VITALS (9 sets, daily range): BP systolic 128–163; BP diastolic 65–76; PULSE 58–74; TEMP 36.8–37; O2SAT 93–100
[2016-06-06] MEDS: CLINDAMYCIN IV 600 MG in DEXTROSE 5% ADD-VANTAGE 50ML 50 ML IV SCH ×3 (04:08→20:23)
[2016-06-06] MEDS: ALBUT/IPRATROP 3MG/0.5MG NEB 3 ML VIAL INH PRN ×2 (06:00→20:23)
[2016-06-06] MEDS: LEVOTHYROXINE 50 MCG TAB PO SCH (06:14)
[2016-06-06] MEDS: BOOST GLUCOSE CONTROL PO SCH ×3 (07:11→17:26)
[2016-06-06] MEDS: POLYETHYLENE (MIRALAX) 17 GM PACK PO SCH ×2 (07:18→12:02)
[2016-06-06] MEDS: GABAPENTIN 100 MG CAP PO SCH ×3 (07:18→20:23)
[2016-06-06] MEDS: FLUTICASONE PROPIONATE NA SPR 16 GM BTL SCH (07:18)
[2016-06-06] MEDS: FERROUS SULFATE 325 MG TAB PO SCH (07:18)
[2016-06-06] MEDS: PANTOprazole SOD 40 MG TAB PO SCH ×2 (07:19→20:22)
[2016-06-06] MEDS: DOCUSATE SODIUM/SENNA 50/8.6MG TAB PO SCH ×2 (07:19→20:22)
[2016-06-06] MEDS: SERTRALINE HCL 100 MG TAB PO SCH (07:19)
[2016-06-06] MEDS: ACETYLCYSTEINE 20% INHAL SOLN ***DISPENSED BY RESP. INH SCH ×3 (07:35→19:10)
[2016-06-06] MEDS: LEVALBUTEROL 1.25MG/0.5ML NEB INH PRN (07:35)
[2016-06-06] MEDS: INSULIN ASPART 100 UNITS/ML 3 ML PEN SC SCH ×4 (07:35→20:32)
[2016-06-06] MEDS: IPRATROPIUM BROMIDE NEB SOLN 0.02% 2.5 ML VIAL INH PRN (07:35)
[2016-06-06] MEDS: INSULIN GLARGINE SOLOSTAR 100 UNITS/ML 3 ML PEN SC SCH ×2 (07:36→12:13)
[2016-06-06] MEDS: CLONIDINE HCL 0.1 MG TAB PO SCH ×2 (07:36→20:23)
[2016-06-06] MEDS: METOPROLOL TARTRATE 50 MG TAB PO SCH ×2 (07:38→20:22)
[2016-06-06] MEDS: ATORVASTATIN 20 MG TAB PO SCH (07:38)
[2016-06-06] MEDS: AMIODARONE 200 MG TAB PO SCH (07:38)
--- NOTE | 2016-06-06 08:19 | SURGERY PROGRESS NOTE ---
DATE: 06/06/2016 Ms. Robledo was seen yesterday on 06/05/2016, I was concerned about her. She looked good in the morning, but had desaturated and we were quite concerned about her. Her x-ray shows some opacification of the left base. It does not look like an effusion per se. Concerned about her respiratory effort. Over the course of today, she improved. I tentatively plan on doing a bronchoscopy which she looks better. I have kept her n.p.o. last night and today she looks better and sounds better. I removed her dressings. Her incisions are clean. She is much more awake. We are going to hold off on bronchoscopy today and allow her to eat. She is going to require some physical therapy and I would like to get that going today and I have discussed this with the nurses.
--- NOTE | 2016-06-06 08:29 | DIAGNOSTIC IMAGING REPORT ---
SINGLE VIEW CHEST CLINICAL HISTORY: Aspiration pneumonia. FINDINGS: An AP, portable, upright chest radiograph is compared to study dated 06/05/2016 and correlated with chest CT dated 05/23/2016. The examination is degraded by portable technique and patient rotation. A 2-lead cardiac pacemaker is unchanged in position. A right PICC line is again noted. The heart is enlarged and there is atherosclerotic calcification of the thoracic aorta. Pulmonary vascular congestion persists. Enlargement of the central pulmonary arteries is similar to previous and consistent with pulmonary artery hypertension. There are small pleural effusions with bibasilar consolidation. This is similar appearance to yesterday. No pneumothorax is seen. The skeletal structures are osteopenic. The bony thorax is grossly intact. IMPRESSION: 1. Cardiomegaly and cardiac pacemaker with mild persistent pulmonary vascular congestion. 2. Small pleural effusions with bibasilar consolidation, left greater than right. This is similar in appearance to yesterday. Electronically signed by: Hayes Pena M.D. 06/06/2016 8:28 AM Dictated Date/Time: 06/06/2016 8:25 AM
[2016-06-06 08:33] LABS: HEMATOCRIT 26.3 % (37-47); MEAN CELL VOLUME 100.8 fL (80-100); MEAN CORPUSCULAR HGB CONC 30.8 g/dl (32-36); RED BLOOD COUNT 2.61 M/uL (4.2-5.4); WHITE BLOOD COUNT 11.64 K/uL (4.8-10.8)
[2016-06-06 08:45] LABS: MEAN PLATELET VOLUME 10.1 fL (7.4-10.4); PLATELET COUNT 86 K/uL (130-400)
--- NOTE | 2016-06-06 10:37 | PROGRESS NOTE ---
DATE: 06/06/2016 SUBJECTIVE: The patient is considerably improved today. She is awake, alert, and comfortable reading the bible this morning, uses incentive spirometry. she can get the spirometry up to about 700 mL. We discussed that at length. According to nurses' note, she had a fairly good night last night, resting in bed and had some incontinence of urine & small amount of thick sputum, which is not discolored. She is in a paced rhythm. PHYSICAL EXAMINATION: VITAL SIGNS: Stable, blood pressure 134/65, oxygen saturations 97% on 3 liters and she is afebrile. Weight is stable at 98.6 kilograms, it was 94.5 on the 4th; weight has been difficult to assess. HEENT: Unremarkable. No thrush noted. There is no neck vein distention or HJR. No bruits are auscultated. Thyroid is normal to palpation. HEART: Regular rate and rhythm. No Diastolic murmurs. There is a 2/6 mid to late systolic murmur heard right at the apex. LUNGS: Reveal decreased breath sounds bilaterally with no wheezing noted. Few crackles are noted at the right base. ABDOMEN: Soft, nontender. EXTREMITIES: She has no cyanosis, clubbing or edema. LABORATORY DATA: White count is 11.6, hemoglobin/hematocrit 8.1 and 0.3%, platelet count of 86,000. BUN and creatinine are stable. Sugars are in 91-186 range. Sputum Gram stain from the 16 of May revealed squamous cells and was a contaminated specimen. IMPRESSION: 1. Respiratory insufficiency with hypercapnia related to profound weakness. This seems to be improved today. 2. Atrial fibrillation, converted. 3. Probable minimal chronic obstructive lung disease. RECOMMENDATIONS: 1. At this point, continue with present medications. Again, I think the Mucomyst could be discontinued. 2. Continue on the Cleocin for the left lower lobe abnormality and the amiodarone. 3. Taper the prednisone down and off over the next week to 10 days. 4. She can be continued on DuoNeb 4 times a day to enhance mucociliary clearance, but I do not think she is going to produce much sputum at this point. Overall, she looks good. [facility]
[2016-06-06] MEDS ORDERED: BISACODYL 10 MG SUPP PR STA (12:27)
[2016-06-06] MEDS: SOD PHOSPHATE/SOD BIPHOSPHATE ENEMA 132 ML BTL PR ONE ×2 (14:17→16:00)
--- NOTE | 2016-06-06 14:37 | Pharmacy Progress Note ---
Glycemic Control: Progress Nt Date of Service Jun 06, 2016. Scope Glycemic Pharmacist consulted by Dr Hinton on 05/15/16 for glycemic control and to write orders per [facility] inpatient glycemic control protocol. Objective Accuchecks BSG (last 24hrs): Test 06/05/16 16:53 06/05/16 20:07 06/06/16 07:19 06/06/16 11:33 Bedside Glucose 137 mg/dl (70-90) 186 mg/dl (70-90) 142 mg/dl (70-90) 280 mg/dl (70-90) Laboratory Data (last 24hrs) Test 06/06/16 08:15 Creatinine 1.00 mg/dl White Blood Count 11.64 K/uL Recent Pertinent Medications Outpatient Anti-diabetic Regimen: * glipizide ER 2.5mg PO daily * A1c = 7% 03/2016 The patient is currently receiving: * Basal insulin: Lantus 0-10 units q AM * Correctional Insulin: NovoLog Correction per scale AC/HS Goal Range: Low 140 mg/dL - High 180 mg/dL Correction Factor: 30 mg/dL/unit * Prandial insulin: Per carb ratio of 1 unit per 10 grams CHO consumed Risk Factors for Insulin Resistance: * Steroids: Prednisone 20mg PO daily * Diet: Full liquid Assessment & Plan ASSESSMENT: * ADA & AACE recommend a goal blood sugar range 140-180 mg/dl for the majority of critically ill & non-critically ill patients. However, more stringent targets may be selected in individual cases. 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 * Outpatient control appropriate based on A1c * Currently, experiencing hyperglycemia secondary to BID prednisone * Tighten NovoLog parameters * add additional Accu-checks overnight until euglycemic * Taper insulin doses at steroids decrease * Fasting BSG elevated both yesterday and today * one time dose of Lantus and then reassess need for basal insulin CURRENT: 05/31/16 * BSGs have been labile over the past few days secondary to change in eating habits. * Steroids changed abruptly with trip to the OR - * Ms Robledo very susceptible to steroid induced hyperglycemia (when eating) - continue to monitor * Currently NPO after hernia repair * likely insulin needs will decrease x1-2 days post op for this reason - decrease insulin doses * NovoLog parameters changed by provider this AM * continue with Epifanio's orders at this time and titrate as needed 06/01/16 * Patient has been NPO for >24 hours at this time and insulin requirements have diminished. * Only 10 units of insulin (all Lantus) given on 05/31 and BSGs never above 160mg /dL - Will further hold additional Lantus at this time as BSGs are below goal range currently * Steroids are being tapered * will continue to monitor and adjust insulin regimen as needed (when Pat begins eating) * NPO likely for the remainder of today * continue to hold on all insulin except for correctional if hyperglycemia occurs 06/05/16 * Insulin needs decreasing as steroids tapered (32 units on 06/03 --> 25 units on 06/04) * suspect a decrease in insulin doses will be needed again today * Fasting BSG below 100mg/dL today * full dose Lantus given despite half dose parameters - continue to monitor BSGs * futher decrease Lantus dose and base of BSG * Slight rise in BSGs throughout the day secondary to AM prednisone dosing, however today BSGs remain below goal despite breakfast * continue same NovoLog parameters with the exception of goal range (increase to 140mg/dL based on age and risk of hypoglycemia) 06/06/16 * BSGs adequately controlled on 06/05 with 10 units of basal insulin/15 units total dose * Today, fasting BSG was WNL. Pat refused AM Lantus. * pre-lunch BSG then elevated (question if patient ate and wasn't covered?) * AM Lantus then given around noontime * Overall, BSGs are labile and difficult to control (steroids, PO intake, infection, etc) * hopeful for pred step down tomorrow (has received 3 days of 20mg) --> Cyndee requires significantly less insulin when not on steroids PLAN FOR INPATIENT GLYCEMIC CONTROL: * Basal insulin: Lantus per BSG * BSG less than 120mg/dL - Hold Lantus * BSG 120-140mg/dL - Lantus 5 units * BSG >140mg/dL - Lantus 10 units * Correction/Prandial insulin: NovoLog AC and HS or q6H when NPO * Correction factor to 30mg/dL/unit * Carb ratio to 1 unit per 10 g of CHO consumed * Goal range: 140-180mg/dL per ADA recommendations * A1c - current * added to discharge instructions RECOMMENDATIONS FOR DISCHARGE: * If no steroids at d/c - continue home glipizide. * Please note that the plan above was derived based on current level of insulin resistance and hospital stress. These recommendations are appropriate for inpatient admission only. Plan of care upon discharge will need to be reassessed to avoid potential outpatient hypo/hyperglycemia. Thank you.
--- NOTE | 2016-06-06 18:04 | Progress Note ---
Internal Med Progress Note Date of Service: Jun 06, 2016. Provider Documentation: SUBJECTIVE: The patient was seen and examined Complained SOB and noted to have low saturation Required Musk and Nonrebreather to maintain saturation Patient was transferred to Telemetry Unit n 06/05/16 Much better this morning Saturating well with NC oxygen OBJECTIVE: Vital Signs-as noted below Exam: General-Moderate distress at rest Very Anxious and moderate SOB at rest Eyes-Normal ENT-normal Neck-supple Lungs-Decreased breath sound bilaterally Heart-Irregular,no murmur Abdomen-Soft,huge hiatal hernia ,no obstruction Extremities-no edema Neuro-AAOx3 Lab data as noted below. ASSESSMENT & PLAN: 80 yoF with significant heart history and valve issues admitted for increased work of breathing 2/2 CHF exacerbation and copd exacerbation. Hypoxemia with SOB CXR-no significant finding bur may have infiltration /Pneumonia Started on IV Clinda ,Nebs and Mucomyst Evaluated by Thoracic Surgery Transferred to Tele Condition improved Did not need Bronchoscopy Clinically better Severe Belching Secondary huge hiatal hernia s/p status post left thoracotomy with Belsey Jose IV repair on 05/30/2016 Was in ICU following surgery Has been in Tele now s/p removal NG tube and chest tube removal Clinically much better now 06/04/16 Will have Liquid diet till of this month Hx of kristina sylvester Was on amiodarone drip as patient is npo Restarted on po amiodarone, dose as per cardiology. Clinically stable and the rate is controlled HTN Restarted po meds Lopressor and clonidine BP is still running high at times iv hydralazine prn Nutrition Started on liquid diet and will continue till of this month Thrombocytopenia Was placed on Lovenox post surgery which will be stopped f/u HIT studies-negative Hospital course so far: Intial presentation with ACUTE HYPOXIC RESPIRATORY FAILURE, LIKELY MULTIFACTORIAL DUE TO ACUTE DIASTOLIC CHF AND/OR COPD EXACERBATION Presented with cough and SOB x 3 days; influenza outbreak at retirement however patient has been on prophylactic Tamilfu since 05/05 87% on room air on arrival, improved with oxygen 2L via NC Treated with steroids, Lasix and abx ECHO did not show any significant change compared with prior test Cardiology on board Cardiology started on lower dose Losartan which was stopped secondary to arf and hyperkalemia Requiring oxygen while sleeping on nocturna pulse ox study Prednisone on a tapering dose Appreciate Pulmonary input MITRAL VALVE ANOMALY ECHO::ECHO:: * Sinus rhythm was present during the echocardiogram. * There is a 0.6cm x 0.6cm mobile echodensity attached to ventricular surface of the mitral valve annulus near the left ventricular outflow tract. * Calcified mitral apparatus. * The aortic valve is moderately calcified. * Mild valvular aortic stenosis. * Moderate aortic regurgitation. * The left ventricular wall motion is normal. * Ejection Fraction = 60-65%. * Grade I diastolic dysfunction, (abnormal relaxation pattern). * Compared to the most recent echocardiogram, the echodensity is unchanged. cardiology on board stable cardiac condition ATRIAL FIBRILLATION on amiodarone and metoprolol rate controlled Not anticoagulated due to hx of hemorrhagic pericardial effusion and subdural hematoma s/p fall was on amiodarone drip post surgery back on po amiodarone SSS S/P PACER no acute issues ARF' baseline cr 1.2 to 1.3 Monitor labs. DM hgb a1c 7.0 03/2016 oral agents on hold. SSI while hospitalized will monitor GERD, HIATAL HERNIA on PPI/H2 filipe HYPOTHYROIDISM on levothyroxine DEPRESSION on sertraline DVT PROPHYLAXIS SCDs due to hx of hemorrhagic pericardial effusion and subdural hematoma Was on on Lovenox post surgery but platelets dropping- stopped Lovenox CODE STATUS DNR DISPO: social service for d/c planning Continue PT/OT Vital Signs: Date Time Temp Pulse Resp B/P Pulse Ox O2 Delivery O2 Flow Rate FiO2 06/06/16 16:00 Nasal Cannula 3.0 06/06/16 15:43 37.0 69 20 128/76 95 06/06/16 12:00 36.8 74 18 128/74 93 06/06/16 12:00 Nasal Cannula 3.0 06/06/16 08:00 Nasal Cannula 3.0 06/06/16 07:55 37.0 69 18 134/65 97 06/06/16 07:35 58 16 97 Nasal Cannula 3.0 06/06/16 06:01 60 16 96 Nasal Cannula 3.0 06/06/16 05:04 Nasal Cannula 3.0 06/06/16 04:00 Nasal Cannula 3.0 06/06/16 03:33 36.8 61 20 163/68 96 Nasal Cannula 3.0 06/06/16 00:01 96 Nasal Cannula 3.0 06/05/16 23:47 68 16 96 Nasal Cannula 3.0 06/05/16 23:04 36.5 59 20 123/50 96 Nasal Cannula 3.0 06/05/16 20:00 97 Nasal Cannula 3.0 06/05/16 19:30 36.9 64 18 143/61 97 Nasal Cannula 3.0 06/05/16 19:16 67 16 96 Nasal Cannula 3.0 Lab Results: Results Past 24 Hours Test 06/05/16 20:07 06/06/16 07:19 06/06/16 08:15 06/06/16 11:33 Range/Units Bedside Glucose 186 142 280 70-90 mg/dl White Blood Count 11.64 4.8-10.8 K/uL Red Blood Count 2.61 4.2-5.4 M/uL Hemoglobin 8.1 12.0-16.0 g/dL Hematocrit 26.3 37-47 % Mean Corpuscular Volume 100.8 80-100 fL Mean Corpuscular Hemoglobin 31.0 25-34 pg Mean Corpuscular Hemoglobin Concent 30.8 32-36 g/dl RDW Standard Deviation 59.8 36.4-46.3 fL RDW Coefficient of Variation 16.4 11.5-14.5 % Platelet Count 86 130-400 K/uL Mean Platelet Volume 10.1 7.4-10.4 fL Creatinine 1.00 0.60-1.20 mg/dl Est Creatinine Clear Calc Drug Dose 48.4 ml/min Estimated GFR () 61.2 Estimated GFR (Non- 52.8 Test 06/06/16 16:23 Range/Units Bedside Glucose 189 70-90 mg/dl
[2016-06-06] MEDS: MIRTAZAPINE TAB 15 MG TAB PO SCH (20:22)
[2016-06-06] MEDS: MONTELUKAST SOD 10 MG TAB PO SCH (20:22)
[2016-06-07] VITALS (9 sets, daily range): BP systolic 128–143; BP diastolic 54–73; PULSE 59–69; TEMP 36.3–37.2; O2SAT 90–98
[2016-06-07] MEDS: ACETYLCYSTEINE 20% INHAL SOLN ***DISPENSED BY RESP. INH SCH ×2 (02:05→07:14)
[2016-06-07] MEDS: ALBUT/IPRATROP 3MG/0.5MG NEB 3 ML VIAL INH PRN ×2 (02:05→07:14)
[2016-06-07] MEDS: CLINDAMYCIN IV 600 MG in DEXTROSE 5% ADD-VANTAGE 50ML 50 ML IV SCH ×3 (04:29→21:47)
[2016-06-07] MEDS: LEVOTHYROXINE 50 MCG TAB PO SCH (05:30)
[2016-06-07] MEDS: INSULIN ASPART 100 UNITS/ML 3 ML PEN SC SCH ×4 (07:00→21:00)
--- NOTE | 2016-06-07 07:08 | PULMONARY PROGRESS NOTE ---
DATE: 06/07/2016 HISTORY OF PRESENT ILLNESS: The patient is comfortable this morning, sleeping. When I awakened her at 6:00, she was comfortable and awake and states she had a fairly good night last night. She states she feels about the same. She denies chest pain this morning. According to nurses' note, she has been in a paced rhythm on oxygen at 3 liters. Oxygen saturation has been stable. She did have some minimal diarrhea last night. Dressings have been intact over the left hemithorax. PHYSICAL EXAMINATION: VITAL SIGNS: Stable and she is afebrile, blood pressure 128/68, pulse is 60, oxygen saturation 94% on 3 liters. The I\T\O is not noted. NECK: There is no neck vein distention. No subcutaneous emphysema is noted. HEART: Regular rate and rhythm. LUNGS: Reveal decreased breath sounds bilaterally. There are few crackles in the left base. ABDOMEN: Soft, nontender. EXTREMITIES: She has no cyanosis, clubbing or edema. SCDs are in place. LABORATORY DATA: White count yesterday was stable with hemoglobin of only 8.1. Sugars 198 last night. MRSA DNA surveillance screen was negative on the . IMAGING DATA: Chest x-ray for this morning is pending. IMPRESSION: 1. Respiratory failure with hypercapnia, stable. 2. Left lower lobe atelectasis versus pneumonia. 3. Small pleural effusions. RECOMMENDATIONS: 1. Continue with her present medications. I have increased the activity, have some bedside physical therapy and get her out of bed as much as possible. 2. Again, I think the Mucomyst could be discontinued. I will continue on the Cleocin for full 7 days. I think it would be appropriate. We will continue on amiodarone as well. Overall, this morning, she is stable.
[2016-06-07] MEDS: BOOST GLUCOSE CONTROL PO SCH ×3 (07:30→16:45)
[2016-06-07] MEDS: FLUTICASONE PROPIONATE NA SPR 16 GM BTL SCH (08:18)
[2016-06-07] MEDS: CLONIDINE HCL 0.1 MG TAB PO SCH ×2 (08:19→21:50)
[2016-06-07] MEDS: PANTOprazole SOD 40 MG TAB PO SCH ×2 (08:19→21:50)
[2016-06-07] MEDS: SERTRALINE HCL 100 MG TAB PO SCH (08:20)
[2016-06-07] MEDS: DOCUSATE SODIUM/SENNA 50/8.6MG TAB PO SCH ×2 (08:20→20:00)
[2016-06-07] MEDS: GABAPENTIN 100 MG CAP PO SCH ×3 (08:21→21:48)
[2016-06-07] MEDS: FERROUS SULFATE 325 MG TAB PO SCH (08:21)
[2016-06-07] MEDS: AMIODARONE 200 MG TAB PO SCH (08:22)
[2016-06-07] MEDS: POLYETHYLENE (MIRALAX) 17 GM PACK PO SCH (08:23)
[2016-06-07] MEDS: METOPROLOL TARTRATE 50 MG TAB PO SCH ×2 (08:24→21:50)
[2016-06-07] MEDS: INSULIN GLARGINE SOLOSTAR 100 UNITS/ML 3 ML PEN SC SCH (08:31)
--- NOTE | 2016-06-07 10:37 | Pharmacy Progress Note ---
Glycemic Control: Progress Nt Date of Service Jun 07, 2016. Scope Glycemic Pharmacist consulted by Dr Hinton on 05/15/16 for glycemic control and to write orders per [facility] inpatient glycemic control protocol. Objective Accuchecks BSG (last 24hrs): Test 06/06/16 11:33 06/06/16 16:23 06/06/16 20:27 06/07/16 07:14 Bedside Glucose 280 mg/dl (70-90) 189 mg/dl (70-90) 198 mg/dl (70-90) 137 mg/dl (70-90) Recent Pertinent Medications Outpatient Anti-diabetic Regimen: * glipizide ER 2.5mg PO daily * A1c = 7% 03/2016 The patient is currently receiving: * Basal insulin: Lantus 0-10 units q AM * Correctional Insulin: NovoLog Correction per scale AC/HS Goal Range: Low 140 mg/dL - High 180 mg/dL Correction Factor: 30 mg/dL/unit * Prandial insulin: Per carb ratio of 1 unit per 10 grams CHO consumed Risk Factors for Insulin Resistance: * Steroids: Prednisone 20mg PO daily --> Prednisone 10mg PO daily starting today * Diet: Full liquid Assessment & Plan ASSESSMENT: * ADA & AACE recommend a goal blood sugar range 140-180 mg/dl for the majority of critically ill & non-critically ill patients. However, more stringent targets may be selected in individual cases. INITIAL: * 80 y/o type 2 diabetic who uses oral glipized ER as an outpatient to manager utilization review her diabetes. * Outpatient control appropriate based on A1c * Currently, experiencing hyperglycemia secondary to BID prednisone * Tighten NovoLog parameters * add additional Accu-checks overnight until euglycemic * Taper insulin doses at steroids decrease * Fasting BSG elevated both yesterday and today * one time dose of Lantus and then reassess need for basal insulin CURRENT: 05/31/16 * BSGs have been labile over the past few days secondary to change in eating habits. * Steroids changed abruptly with trip to the OR - * Ms Robledo very susceptible to steroid induced hyperglycemia (when eating) - continue to monitor * Currently NPO after hernia repair * likely insulin needs will decrease x1-2 days post op for this reason - decrease insulin doses * NovoLog parameters changed by provider this AM * continue with Epifanio's orders at this time and titrate as needed 06/05/16 * Insulin needs decreasing as steroids tapered (32 units on 06/03 --> 25 units on 06/04) * suspect a decrease in insulin doses will be needed again today * Fasting BSG below 100mg/dL today * full dose Lantus given despite half dose parameters - continue to monitor BSGs * futher decrease Lantus dose and base of BSG * Slight rise in BSGs throughout the day secondary to AM prednisone dosing, however today BSGs remain below goal despite breakfast * continue same NovoLog parameters with the exception of goal range (increase to 140mg/dL based on age and risk of hypoglycemia) 06/06/16 * BSGs adequately controlled on 06/05 with 10 units of basal insulin/15 units total dose * Today, fasting BSG was WNL. Pat refused AM Lantus. * pre-lunch BSG then elevated (question if patient ate and wasn't covered?) * AM Lantus then given around noontime * Overall, BSGs are labile and difficult to control (steroids, PO intake, infection, etc) * hopeful for pred step down tomorrow (has received 3 days of 20mg) --> Cyndee requires significantly less insulin when not on steroids 06/07/16 * Patient initially refused AM Lantus yesterday, but then it was administered around noontime. * BSGs fell nicely after dose administration * Prednisone is again being tapered today - after review of the chart, it appears that Ms Robledo requires little to no basal insulin when steroids are stopped. * Further decrease Lantus to 0-5units SQ daily (depending on BSG) * NovoLog parameters are appropriate at this time * if postprandial BSGs fall below goal range, may need to loosen parameters as steroids taper PLAN FOR INPATIENT GLYCEMIC CONTROL: * Basal insulin: Lantus per BSG * BSG less than 120mg/dL - Hold Lantus * BSG 120mg/dL and above - Lantus 5 units SQ daily * Correction/Prandial insulin: NovoLog AC and HS or q6H when NPO * Correction factor to 30mg/dL/unit * Carb ratio to 1 unit per 10 g of CHO consumed * Goal range: 140-180mg/dL per ADA recommendations * A1c - current * added to discharge instructions RECOMMENDATIONS FOR DISCHARGE: * If no steroids at d/c - continue home glipizide. * Please note that the plan above was derived based on current level of insulin resistance and hospital stress. These recommendations are appropriate for inpatient admission only. Plan of care upon discharge will need to be reassessed to avoid potential outpatient hypo/hyperglycemia. Thank you.
[2016-06-07] MEDS: ATORVASTATIN 20 MG TAB PO SCH (11:23)
--- NOTE | 2016-06-07 13:24 | Progress Note ---
Internal Med Progress Note Date of Service: Jun 07, 2016. Provider Documentation: SUBJECTIVE: The patient was seen and examined Complained SOB and noted to have low saturation Required Musk and Nonrebreather to maintain saturation Patient was transferred to Telemetry Unit n 06/05/16 Much better now Saturating well with NC oxygen Will transfer back to floor and start Physical Therapy OBJECTIVE: Vital Signs-as noted below Exam: General-Moderate distress at rest Very Anxious and minimal SOB at rest Generally weak and lethargic Eyes-Normal ENT-normal Neck-supple Lungs-Decreased breath sound bilaterally Heart-Irregular,no murmur Abdomen-Soft,huge hiatal hernia ,no obstruction Extremities-no edema Neuro-AAOx3 Lab data as noted below. ASSESSMENT & PLAN: 80 yoF with significant heart history and valve issues admitted for increased work of breathing 2/2 CHF exacerbation and copd exacerbation. Hypoxemia with SOB CXR-no significant finding bur may have infiltration /Pneumonia Started on IV Clinda ,Nebs and Mucomyst Evaluated by Thoracic Surgery Transferred to Tele Condition improved a lot Did not need Bronchoscopy Appreciate Pulmonary input Clinically much better today Transfer back to floor and start vigorous PT Severe Belching Secondary huge hiatal hernia s/p status post left thoracotomy with Belsey Jose IV repair on 05/30/2016 Was in ICU following surgery Has been in Tele now s/p removal NG tube and chest tube removal Clinically much better now 06/04/16 Will have Liquid diet till of this month Belching is better controlled now Hx of a .fib Was on amiodarone drip as patient is npo Restarted on po amiodarone, dose as per cardiology. Clinically stable and the rate is controlled Continue Amiodarone HTN Restarted po meds Lopressor and clonidine BP is still running high at times iv hydralazine prn Nutrition Started on liquid diet and will continue till of this month Thrombocytopenia Was placed on Lovenox post surgery which will be stopped f/u HIT studies-negative Hospital course so far: Intial presentation with ACUTE HYPOXIC RESPIRATORY FAILURE, LIKELY MULTIFACTORIAL DUE TO ACUTE DIASTOLIC CHF AND/OR COPD EXACERBATION Presented with cough and SOB x 3 days; influenza outbreak at [facility] however patient has been on prophylactic Tamilfu since 05/05 87% on room air on arrival, improved with oxygen 2L via NC Treated with steroids, Lasix and abx ECHO did not show any significant change compared with prior test Cardiology on board Cardiology started on lower dose Losartan which was stopped secondary to arf and hyperkalemia Requiring oxygen while sleeping on nocturna pulse ox study Prednisone on a tapering dose Appreciate Pulmonary input MITRAL VALVE ANOMALY ECHO::ECHO:: * Sinus rhythm was present during the echocardiogram. * There is a 0.6cm x 0.6cm mobile echodensity attached to ventricular surface of the mitral valve annulus near the left ventricular outflow tract. * Calcified mitral apparatus. * The aortic valve is moderately calcified. * Mild valvular aortic stenosis. * Moderate aortic regurgitation. * The left ventricular wall motion is normal. * Ejection Fraction = 60-65%. * Grade I diastolic dysfunction, (abnormal relaxation pattern). * Compared to the most recent echocardiogram, the echodensity is unchanged. cardiology on board stable cardiac condition ATRIAL FIBRILLATION on amiodarone and metoprolol rate controlled Not anticoagulated due to hx of hemorrhagic pericardial effusion and subdural hematoma s/p fall was on amiodarone drip post surgery back on po amiodarone SSS S/P PACER no acute issues ARF' baseline cr 1.2 to 1.3 Monitor labs. DM hgb a1c 7.0 03/2016 oral agents on hold. SSI while hospitalized will monitor GERD, HIATAL HERNIA on PPI/H2 filipe HYPOTHYROIDISM on levothyroxine DEPRESSION on sertraline DVT PROPHYLAXIS SCDs due to hx of hemorrhagic pericardial effusion and subdural hematoma Was on on Lovenox post surgery but platelets dropping- stopped Lovenox CODE STATUS DNR DISPO: social service for d/c planning Continue PT/OT Vital Signs: Date Time Temp Pulse Resp B/P Pulse Ox O2 Delivery O2 Flow Rate FiO2 06/07/16 12:00 Nasal Cannula 3.0 06/07/16 11:45 37.2 60 22 131/69 98 Nasal Cannula 3.0 06/07/16 08:00 Nasal Cannula 3.0 06/07/16 07:46 36.3 60 22 129/54 97 Nasal Cannula 2.0 06/07/16 07:16 69 16 98 Nasal Cannula 3.0 06/07/16 04:00 Nasal Cannula 3.0 06/07/16 02:56 36.8 59 20 128/68 90 Nasal Cannula 3.0 06/07/16 02:05 62 16 94 Nasal Cannula 3.0 06/07/16 00:14 36.6 60 20 131/65 98 Nasal Cannula 3.0 06/07/16 00:01 Nasal Cannula 3.0 06/06/16 20:00 Nasal Cannula 3.0 06/06/16 19:47 36.9 59 21 136/74 100 Nasal Cannula 3.0 06/06/16 19:10 64 16 97 Nasal Cannula 3.0 06/06/16 16:00 Nasal Cannula 3.0 06/06/16 15:43 37.0 69 20 128/76 95 Lab Results: Results Past 24 Hours Test 06/06/16 16:23 06/06/16 20:27 06/07/16 07:14 06/07/16 11:14 Range/Units Bedside Glucose 189 198 137 176 70-90 mg/dl
--- NOTE | 2016-06-07 15:01 | DIAGNOSTIC IMAGING REPORT ---
CHEST ONE VIEW PORTABLE CLINICAL HISTORY: cough dyspnea COMPARISON STUDY: 06/06/2016 FINDINGS: Findings a slightly progressive congestive failure. Persistent consolidative change left lung base. Slight plantar right lateral costophrenic angle. Permanent bipolar cardiac pacer with leads in good position. IMPRESSION: Congestive failure and left basilar consolidative change slightly progressive radiographically from the prior exam. Electronically signed by: Jose Keyes M.D. 06/07/2016 2:59 PM Dictated Date/Time: 06/07/2016 2:58 PM
--- NOTE | 2016-06-07 15:52 | SURGERY PROGRESS NOTE ---
DATE: 06/07/2016 SUBJECTIVE: Ms. Robledo was seen today on 06/07/2016. She has developed a cough today. I am a bit concerned about this cough. It is unclear to me why this started. She did not have it yesterday. Pulse oximetry is 98% on 3 liters. She has been afebrile. This happened suddenly today and it is unclear to me whether we are dealing with a case of aspiration. Her chest exam has not changed much. On x-ray, looks like she may be in a bit more congestive failure, but I do not see increasing fluid on the left. We are going to get speech to evaluate her. MTDD
[2016-06-07] MEDS: MONTELUKAST SOD 10 MG TAB PO SCH (21:49)
[2016-06-07] MEDS: MIRTAZAPINE TAB 15 MG TAB PO SCH (21:51)
[2016-06-08] VITALS (10 sets, daily range): BP systolic 129–191; BP diastolic 53–81; PULSE 58–62; TEMP 36.5–37; O2SAT 90–96
[2016-06-08] MEDS: CLINDAMYCIN IV 600 MG in DEXTROSE 5% ADD-VANTAGE 50ML 50 ML IV SCH ×3 (04:48→20:18)
[2016-06-08] MEDS: LEVOTHYROXINE 50 MCG TAB PO SCH (05:02)
[2016-06-08] MEDS: ALBUT/IPRATROP 3MG/0.5MG NEB 3 ML VIAL INH PRN ×2 (05:25→14:21)
[2016-06-08] MEDS: FLUTICASONE PROPIONATE NA SPR 16 GM BTL SCH (07:24)
[2016-06-08] MEDS: BOOST GLUCOSE CONTROL PO SCH ×3 (07:24→17:00)
[2016-06-08] MEDS: AMIODARONE 200 MG TAB PO SCH (07:25)
[2016-06-08] MEDS: PANTOprazole SOD 40 MG TAB PO SCH ×2 (07:25→20:20)
[2016-06-08] MEDS: CLONIDINE HCL 0.1 MG TAB PO SCH ×2 (07:26→20:21)
[2016-06-08] MEDS: GABAPENTIN 100 MG CAP PO SCH ×3 (07:27→20:20)
[2016-06-08] MEDS: METOPROLOL TARTRATE 50 MG TAB PO SCH ×2 (07:27→20:21)
[2016-06-08] MEDS: SERTRALINE HCL 100 MG TAB PO SCH (07:27)
[2016-06-08] MEDS: ATORVASTATIN 20 MG TAB PO SCH (07:30)
[2016-06-08] MEDS: DOCUSATE SODIUM/SENNA 50/8.6MG TAB PO SCH ×2 (07:30→20:19)
[2016-06-08] MEDS: FERROUS SULFATE 325 MG TAB PO SCH (07:30)
[2016-06-08] MEDS: POLYETHYLENE (MIRALAX) 17 GM PACK PO SCH (07:31)
--- NOTE | 2016-06-08 08:49 | SURGERY PROGRESS NOTE ---
DATE: 06/08/2016 Ms. Robledo was seen today on 06/08/2016. She sounds much better, although she still has a cough. I discussed this with Dr. Chilango Grant from pulmonary, who feels also that she is a bit better. We will check a chest x-ray on her and increase her physical therapy. My hope is that we would be able to get her to [facility] in the near future.
--- NOTE | 2016-06-08 08:51 | PROGRESS NOTE ---
DATE: 06/08/2016 DATE: 06/08/2016. SUBJECTIVE: The patient is comfortable this morning. She does have rather vigorous cough with some thick sputum but it is clear. I tried to get her to do incentive spirometry. She had no idea how to do that. I thought she could probably get up to 1000 mL for vital capacity and we discussed that. I tried to get her to use it for over an extended period of time and she had difficulty with coordinating the maneuvers. She is scheduled for a video swallow. OBJECTIVE: VITAL SIGNS: She looks good with a respiratory rate of 18. Blood pressure 154/74, oxygen saturation 95% on 2 liters. Her weight is 102.4 kilograms which is up from 94.5 kilograms on the 4th and 100.5 kilograms on the 5th. GENERAL: According to nurses' notes she had a fairly good night last night, was resting with her eyes closed at midnight, respiratory status stable. NECK: Posterior pharynx looks good. There is no neck vein distention or HJR. No subcutaneous emphysema is noted. HEART: Regular rate and rhythm. LUNGS: Revealed decreased breath sounds bilaterally. Few crackles at the left base along the incision site. ABDOMEN: Soft, nontender. She has no significant edema, cyanosis or clubbing. LABORATORY DATA: White count is 11.6, hemoglobin was down to 8.1 yesterday. Sugars have been in the 153-172 range. Chest x-ray yesterday continued to show changes consistent with heart failure and consolidative change at the left base. IMPRESSION: 1. Left lower lobe atelectasis with possible pneumonia. 2. Congestive heart failure. RECOMMENDATIONS: Continue with her present medications. She has already had an esophagram which showed pooling the distal esophagus. She is scheduled for a study this morning and is on aspiration precautions. Her chest film this morning is pending. I will continue with good incentive spirometry and try to encourage her to do that. Continue on prednisone perhaps taper that down to 7.5 mg, continue on the amiodarone. Also, increase the diuretics, recheck a PRP and I would attempt to push the BUN and creatinine just slightly increased. BUN was 53 on 6th. I think that is adequate. Overall, at this point she is stable.
[2016-06-08] MEDS: INSULIN ASPART 100 UNITS/ML 3 ML PEN SC SCH ×4 (08:56→20:28)
[2016-06-08] MEDS: INSULIN GLARGINE SOLOSTAR 100 UNITS/ML 3 ML PEN SC SCH (08:57)
[2016-06-08] MEDS ORDERED: THIAMINE HCL 100 MG/ML 2 ML VIAL IM STA (09:37)
--- NOTE | 2016-06-08 12:20 | DIAGNOSTIC IMAGING REPORT ---
VIDEO SWALLOW HISTORY: Postop hiatal hernia repair. Possible aspiration. TECHNIQUE: Video fluoroscopic evaluation of swallowing was performed in the AP and lateral projections by the speech pathology staff. The patient is fed nectar-thick and thin liquid barium, a barium coated wafer, and barium pudding. FLUOROSCOPY TIME: 2.9 minutes. COMPARISON STUDY: Barium swallow performed June 02, 2016 FINDINGS: With swallowing thin liquid and nectar thick liquids, there was vallecular retention. There is no aspiration or penetration. When swallowing pudding and cracker with paste there was no aspiration or penetration. There is delayed esophageal emptying, possibly secondary to postoperative edema. IMPRESSION: 1. No aspiration identified. 2. Please see the speech pathologist report for detailed findings and recommendations. Electronically signed by: Yvan Gupta M.D. 06/08/2016 12:18 PM Dictated Date/Time: 06/08/2016 12:16 PM
[2016-06-08] MEDS: HYDROmorphone INJ 1 MG/ML SYR IV PRN (15:41)
--- NOTE | 2016-06-08 15:46 | Progress Note ---
Internal Med Progress Note Date of Service: Jun 08, 2016. Provider Documentation: SUBJECTIVE: The patient was seen and examined Back to Medical floor Video Swallow -Narrowing of the lower part of the Esophagus No aspiration Keeps falling on ambulation OBJECTIVE: Vital Signs-as noted below Exam: General-Minimal distress at rest Generally weak and lethargic Eyes-Normal ENT-normal Neck-supple Lungs-Decreased breath sound bilaterally Heart-Irregular,no murmur Abdomen-Soft,huge hiatal hernia ,no obstruction Extremities-no edema Neuro-AAOx3 Lab data as noted below. ASSESSMENT & PLAN: 80 yoF with significant heart history and valve issues admitted for increased work of breathing 2/2 CHF exacerbation and copd exacerbation. Hypoxemia with SOB CXR-no significant finding bur may have infiltration /Pneumonia Started on IV Clinda ,Nebs and Mucomyst Evaluated by Thoracic Surgery Transferred to Tele Condition improved a lot Did not need Bronchoscopy Appreciate Pulmonary input Clinically much better today Transfer back to floor and start vigorous PT Remains reasonably stable Advised more participation with Physical therapy Severe Belching Secondary huge hiatal hernia s/p status post left thoracotomy with Belsey Jose IV repair on 05/30/2016 Was in ICU following surgery Has been in Tele now s/p removal NG tube and chest tube removal Clinically much better now 06/04/16 Will have Liquid diet till of this month Belching is better controlled now Barium Swallow did show lower Esophageal narrowing likely due to post surgical edema Expected to improve Hx of a .fib Was on amiodarone drip as patient is npo Restarted on po amiodarone, dose as per cardiology. Clinically stable and the rate is controlled Continue Amiodarone HTN Restarted po meds Lopressor and clonidine BP is still running high at times iv hydralazine prn Nutrition Started on liquid diet and will continue till of this month Thrombocytopenia Was placed on Lovenox post surgery which will be stopped f/u HIT studies-negative Still thrombocytopenic Hospital course so far: Intial presentation with ACUTE HYPOXIC RESPIRATORY FAILURE, LIKELY MULTIFACTORIAL DUE TO ACUTE DIASTOLIC CHF AND/OR COPD EXACERBATION Presented with cough and SOB x 3 days; influenza outbreak at retirement however patient has been on prophylactic Tamilfu since 05/05 87% on room air on arrival, improved with oxygen 2L via NC Treated with steroids, Lasix and abx ECHO did not show any significant change compared with prior test Cardiology on board Cardiology started on lower dose Losartan which was stopped secondary to arf and hyperkalemia Requiring oxygen while sleeping on nocturna pulse ox study Prednisone on a tapering dose Appreciate Pulmonary input MITRAL VALVE ANOMALY ECHO::ECHO:: * Sinus rhythm was present during the echocardiogram. * There is a 0.6cm x 0.6cm mobile echodensity attached to ventricular surface of the mitral valve annulus near the left ventricular outflow tract. * Calcified mitral apparatus. * The aortic valve is moderately calcified. * Mild valvular aortic stenosis. * Moderate aortic regurgitation. * The left ventricular wall motion is normal. * Ejection Fraction = 60-65%. * Grade I diastolic dysfunction, (abnormal relaxation pattern). * Compared to the most recent echocardiogram, the echodensity is unchanged. cardiology on board stable cardiac condition ATRIAL FIBRILLATION on amiodarone and metoprolol rate controlled Not anticoagulated due to hx of hemorrhagic pericardial effusion and subdural hematoma s/p fall was on amiodarone drip post surgery back on po amiodarone SSS S/P PACER no acute issues ARF' baseline cr 1.2 to 1.3 Monitor labs. DM hgb a1c 7.0 03/2016 oral agents on hold. SSI while hospitalized will monitor GERD, HIATAL HERNIA on PPI/H2 filipe HYPOTHYROIDISM on levothyroxine DEPRESSION on sertraline DVT PROPHYLAXIS SCDs due to hx of hemorrhagic pericardial effusion and subdural hematoma Was on on Lovenox post surgery but platelets dropping- stopped Lovenox CODE STATUS DNR DISPO: social service for d/c planning Continue PT/OT Vital Signs: Date Time Temp Pulse Resp B/P Pulse Ox O2 Delivery O2 Flow Rate FiO2 06/08/16 15:29 36.9 60 20 129/70 95 Nasal Cannula 2.0 06/08/16 14:21 60 16 95 Nasal Cannula 2.0 06/08/16 14:10 157/53 06/08/16 12:10 36.5 62 18 191/76 96 2.0 06/08/16 08:00 Nasal Cannula 3.0 06/08/16 07:31 36.9 60 18 154/74 95 Nasal Cannula 2.0 06/08/16 05:26 58 16 93 Nasal Cannula 2.0 06/08/16 03:51 37.0 60 20 153/79 96 Nasal Cannula 2.0 06/08/16 00:01 36.9 60 18 156/71 96 Nasal Cannula 2.0 2/9/17 00:00 Nasal Cannula 2.0 06/07/16 22:00 62 22 143/73 97 Nasal Cannula 3.0 06/07/16 17:46 37.2 60 22 94 3.0 06/07/16 16:00 Nasal Cannula 3.0 06/07/16 15:56 60 94 Lab Results: Results Past 24 Hours Test 06/07/16 16:09 06/07/16 21:34 06/08/16 07:45 06/08/16 12:08 Range/Units Bedside Glucose 172 153 157 148 70-90 mg/dl
[2016-06-08] MEDS: MIRTAZAPINE TAB 15 MG TAB PO SCH (20:20)
[2016-06-08] MEDS: MONTELUKAST SOD 10 MG TAB PO SCH (20:20)
[2016-06-09] VITALS (9 sets, daily range): BP systolic 132–186; BP diastolic 70–83; PULSE 59–65; TEMP 36.1–37.7; O2SAT 91–98
[2016-06-09] MEDS: CLINDAMYCIN IV 600 MG in DEXTROSE 5% ADD-VANTAGE 50ML 50 ML IV SCH ×3 (04:13→20:34)
[2016-06-09] MEDS: LEVOTHYROXINE 50 MCG TAB PO SCH (06:27)
[2016-06-09 06:35] LABS: HEMATOCRIT 28.7 % (37-47); MEAN CELL VOLUME 103.6 fL (80-100); MEAN PLATELET VOLUME 9.1 fL (7.4-10.4); PLATELET COUNT 135 K/uL (130-400); RED BLOOD COUNT 2.77 M/uL (4.2-5.4); WHITE BLOOD COUNT 9.53 K/uL (4.8-10.8)
[2016-06-09 06:49] LABS: CREATININE 0.91 mg/dl (0.60-1.20)
[2016-06-09] MEDS: POLYETHYLENE (MIRALAX) 17 GM PACK PO SCH (08:00)
[2016-06-09] MEDS: BOOST GLUCOSE CONTROL PO SCH ×3 (08:00→20:38)
--- NOTE | 2016-06-09 08:08 | DIAGNOSTIC IMAGING REPORT ---
CHEST ONE VIEW PORTABLE CLINICAL HISTORY: possible aspiration dyspnea COMPARISON STUDY: 06/17/2016 FINDINGS: Mildly progressive components of congestive failure. PICC catheter remains in superior vena cava. Continues be bilateral pleural effusions. IMPRESSION: Congestive heart failure slightly progressive from the prior study. Electronically signed by: Jose Keyes M.D. 06/09/2016 8:07 AM Dictated Date/Time: 06/09/2016 8:02 AM
--- NOTE | 2016-06-09 08:44 | SURGERY PROGRESS NOTE ---
DATE: 06/09/2016 Ms. Robledo underwent a video swallow yesterday. She has no evidence of aspiration, although she does have some hold up in the vallecula. I have actually viewed this study and I was happy with its appearance. I thought the dye went through nicely. She is tolerating liquids. Her problem is she still has this cough. Her x-ray actually looks better from as far as her left lower lung field opacification. This is either better aeration or she has had resolution of some fluid. I am happier with her. I am still unhappy with this cough, which was rather acute but does not appear she is aspirating. We are going to continue to push her in physical therapy and hopefully get her to [facility] soon. She may not eat solid food until I clear her and I will not be for at least a couple weeks.
[2016-06-09] MEDS: FLUTICASONE PROPIONATE NA SPR 16 GM BTL SCH (08:48)
[2016-06-09] MEDS: CLONIDINE HCL 0.1 MG TAB PO SCH ×2 (08:52→20:36)
[2016-06-09] MEDS: AMIODARONE 200 MG TAB PO SCH (08:52)
[2016-06-09] MEDS: FERROUS SULFATE 325 MG TAB PO SCH (08:53)
[2016-06-09] MEDS: METOPROLOL TARTRATE 50 MG TAB PO SCH ×2 (08:53→20:36)
[2016-06-09] MEDS: GABAPENTIN 100 MG CAP PO SCH ×3 (08:53→20:34)
[2016-06-09] MEDS: ATORVASTATIN 20 MG TAB PO SCH (08:53)
[2016-06-09] MEDS: PANTOprazole SOD 40 MG TAB PO SCH ×2 (08:54→20:37)
[2016-06-09] MEDS: DOCUSATE SODIUM/SENNA 50/8.6MG TAB PO SCH ×2 (08:54→20:35)
[2016-06-09] MEDS: SERTRALINE HCL 100 MG TAB PO SCH (08:55)
[2016-06-09] MEDS: INSULIN ASPART 100 UNITS/ML 3 ML PEN SC SCH ×4 (09:29→21:33)
[2016-06-09] MEDS: INSULIN GLARGINE SOLOSTAR 100 UNITS/ML 3 ML PEN SC SCH (09:29)
[2016-06-09] MEDS: ALBUT/IPRATROP 3MG/0.5MG NEB 3 ML VIAL INH PRN ×2 (10:02→20:26)
--- NOTE | 2016-06-09 10:45 | Pharmacy Progress Note ---
Glycemic Control: Progress Nt Date of Service Jun 09, 2016. Scope Glycemic Pharmacist consulted by Dr Hinton on 05/15/16 for glycemic control and to write orders per [facility] inpatient glycemic control protocol. Objective Accuchecks BSG (last 24hrs): Test 06/08/16 12:08 06/08/16 16:21 06/08/16 20:09 Bedside Glucose 148 mg/dl (70-90) 184 mg/dl (70-90) 164 mg/dl (70-90) Laboratory Data (last 24hrs) Test 06/09/16 06:05 Creatinine 0.91 mg/dl White Blood Count 9.53 K/uL HbA1c: 7.0% 03/2016 Recent Pertinent Medications Outpatient Anti-diabetic Regimen: * Glipizide ER 2.5mg PO daily * A1c = 7.0 % 03/2016 The patient is currently receiving: * Basal insulin: Lantus 5 units SQ Q AM if BSG greater than 120 * Correctional Insulin: Novolog Correction per scale ACHS Goal Range: Low 140 mg/dL - High 180 mg/dL Correction Factor: 30 mg/dL/unit * Prandial insulin: Per carb ratio of 1 unit per 10 grams CHO consumed * Oral Agents: None currently Risk Factors for Insulin Resistance: * Steroids: Prednisone 10mg PO daily * Infection: Clindamycin IV for PNX * Diet: currently ordered Full Liquid diet and did tolerate this well yesterday Assessment & Plan ASSESSMENT: 06/09/16 * Glycemic control remains acceptable at this time; BSGs ranged 148-184 over the last 24 hours * She appears to require ~20 units of insulin per day while tolerating the current diet and steroid dose * Would like to transition this patient to a set Lantus dose. Based upon the total insulin requirements of the last few days and fasting AM BSGs she likely will need between 5-10 units of basal per day * Lowering the goal range of the Novolog would be appropriate at this time based upon BSG trend and severity of illness PLAN FOR INPATIENT GLYCEMIC CONTROL: * Increasing Lantus to 7 units SQ Q AM - hold if BSG less than 100 * Continuing correction factor of 30 mg/dl/unit * Continuing carb ratio of 1 unit per 10 grams CHO consumed * Changing goal range to Low 120 mg/dL - High 160 mg/dL * Please note that the plan above was derived based on current level of insulin resistance and hospital stress. These recommendations are appropriate for inpatient admission only. Plan of care upon discharge will need to be reassessed to avoid potential outpatient hypo/hyperglycemia. Thank you.
[2016-06-09] MEDS ORDERED: FUROSEMIDE INJ 40 MG in SYRINGE 0 ML IV ONE (12:30)
[2016-06-09 12:59] LABS: CALCIUM 8.2 mg/dl (8.5-10.1); CREATININE 0.97 mg/dl (0.60-1.20); POTASSIUM 4.5 mmol/L (3.5-5.1)
[2016-06-09 13:00] LABS: PHOSPHORUS 2.7 mg/dl (2.5-4.9)
--- NOTE | 2016-06-09 16:51 | Progress Note ---
Internal Med Progress Note Date of Service: Jun 09, 2016. Provider Documentation: SUBJECTIVE: The patient was seen and examined Back to Medical floor Video Swallow -Narrowing of the lower part of the Esophagus Keeps falling on ambulation Some SOB last night Aggressive PT/OT OBJECTIVE: Vital Signs-as noted below Exam: General-Minimal distress at rest Generally weak and lethargic Eyes-Normal ENT-normal Neck-supple Lungs-Decreased breath sound bilaterally Heart-Irregular,no murmur Abdomen-Soft,huge hiatal hernia ,no obstruction Extremities-no edema Neuro-AAOx3 Lab data as noted below. ASSESSMENT & PLAN: 80 yoF with significant heart history and valve issues admitted for increased work of breathing 2/2 CHF exacerbation and copd exacerbation. More SOB last night CXR-CHF Got 40 mg IV Lasix Will consider more Hypoxemia with SOB CXR-no significant finding bur may have infiltration /Pneumonia Started on IV Clinda ,Nebs and Mucomyst Evaluated by Thoracic Surgery Transferred to Tele Condition improved a lot Did not need Bronchoscopy Appreciate Pulmonary input Clinically much better today Transfer back to floor and start vigorous PT Remains reasonably stable Advised more participation with Physical therapy Severe Belching Secondary huge hiatal hernia s/p status post left thoracotomy with Belsey Jose IV repair on 05/30/2016 Was in ICU following surgery Has been in Tele now s/p removal NG tube and chest tube removal Clinically much better now 06/04/16 Will have Liquid diet till of this month Belching is better controlled now Barium Swallow did show lower Esophageal narrowing likely due to post surgical edema Expected to improve Hx of a .fib Was on amiodarone drip as patient is npo Restarted on po amiodarone, dose as per cardiology. Clinically stable and the rate is controlled Continue Amiodarone HTN Restarted po meds Lopressor and clonidine BP is still running high at times iv hydralazine prn Nutrition Started on liquid diet and will continue till of this month Thrombocytopenia Was placed on Lovenox post surgery which will be stopped f/u HIT studies-negative Improved Start SQ Heparin Hospital course so far: Intial presentation with ACUTE HYPOXIC RESPIRATORY FAILURE, LIKELY MULTIFACTORIAL DUE TO ACUTE DIASTOLIC CHF AND/OR COPD EXACERBATION Presented with cough and SOB x 3 days; influenza outbreak at [facility] however patient has been on prophylactic Tamilfu since 05/05 87% on room air on arrival, improved with oxygen 2L via NC Treated with steroids, Lasix and abx ECHO did not show any significant change compared with prior test Cardiology on board Cardiology started on lower dose Losartan which was stopped secondary to arf and hyperkalemia Requiring oxygen while sleeping on nocturna pulse ox study Prednisone on a tapering dose Appreciate Pulmonary input MITRAL VALVE ANOMALY ECHO::ECHO:: * Sinus rhythm was present during the echocardiogram. * There is a 0.6cm x 0.6cm mobile echodensity attached to ventricular surface of the mitral valve annulus near the left ventricular outflow tract. * Calcified mitral apparatus. * The aortic valve is moderately calcified. * Mild valvular aortic stenosis. * Moderate aortic regurgitation. * The left ventricular wall motion is normal. * Ejection Fraction = 60-65%. * Grade I diastolic dysfunction, (abnormal relaxation pattern). * Compared to the most recent echocardiogram, the echodensity is unchanged. cardiology on board stable cardiac condition ATRIAL FIBRILLATION on amiodarone and metoprolol rate controlled Not anticoagulated due to hx of hemorrhagic pericardial effusion and subdural hematoma s/p fall was on amiodarone drip post surgery back on po amiodarone SSS S/P PACER no acute issues ARF' baseline cr 1.2 to 1.3 Monitor labs. DM hgb a1c 7.0 03/2016 oral agents on hold. SSI while hospitalized will monitor GERD, HIATAL HERNIA on PPI/H2 filipe HYPOTHYROIDISM on levothyroxine DEPRESSION on sertraline DVT PROPHYLAXIS SCDs due to hx of hemorrhagic pericardial effusion and subdural hematoma Was on on Lovenox post surgery but platelets dropping- stopped Lovenox CODE STATUS DNR DISPO: social service for d/c planning Continue PT/OT Vital Signs: Date Time Temp Pulse Resp B/P Pulse Ox O2 Delivery O2 Flow Rate FiO2 06/09/16 16:33 36.7 65 18 159/71 95 Room Air 2.0 06/09/16 16:00 Nasal Cannula 2.0 06/09/16 13:19 36.1 06/09/16 12:11 37.7 60 22 161/78 98 Nasal Cannula 2.5 06/09/16 10:02 65 16 95 Nasal Cannula 3.0 06/09/16 09:15 36.7 59 26 186/72 97 Nasal Cannula 2.5 06/09/16 08:00 Nasal Cannula 2.0 06/09/16 04:10 36.9 60 20 132/72 97 Nasal Cannula 2.0 2/10/17 00:05 Nasal Cannula 2.0 06/08/16 23:24 36.9 62 18 134/81 90 Nasal Cannula 2.0 Humidified Oxygen 06/08/16 20:05 Nasal Cannula 2.0 06/08/16 19:24 36.9 59 20 162/65 94 Nasal Cannula 2.0 Lab Results: Results Past 24 Hours Test 06/08/16 20:09 06/09/16 06:05 06/09/16 07:54 06/09/16 11:30 Range/Units Bedside Glucose 164 159 150 70-90 mg/dl White Blood Count 9.53 4.8-10.8 K/uL Red Blood Count 2.77 4.2-5.4 M/uL Hemoglobin 8.6 12.0-16.0 g/dL Hematocrit 28.7 37-47 % Mean Corpuscular Volume 103.6 80-100 fL Mean Corpuscular Hemoglobin 31.0 25-34 pg Mean Corpuscular Hemoglobin Concent 30.0 32-36 g/dl RDW Standard Deviation 61.8 36.4-46.3 fL RDW Coefficient of Variation 16.4 11.5-14.5 % Platelet Count 135 130-400 K/uL Mean Platelet Volume 9.1 7.4-10.4 fL Nucleated RBC Absolute Count (auto) 0.04 0-0 K/uL Nucleated Red Blood Cells % 0.4 % Creatinine 0.91 0.60-1.20 mg/dl Est Creatinine Clear Calc Drug Dose 54.0 ml/min Estimated GFR () 68.6 Estimated GFR (Non- 59.2 Test 06/09/16 12:15 06/09/16 16:19 Range/Units Sodium Level 146 136-145 mmol/L Potassium Level 4.5 3.5-5.1 mmol/L Chloride Level 110 98-107 mmol/L Carbon Dioxide Level 31 21-32 mmol/L Anion Gap 5.0 3-11 mmol/L Blood Urea Nitrogen 33 7-18 mg/dl Creatinine 0.97 0.60-1.20 mg/dl Est Creatinine Clear Calc Drug Dose 50.7 ml/min Estimated GFR () 63.5 Estimated GFR (Non- 54.8 BUN/Creatinine Ratio 34.0 10-20 Random Glucose 129 70-99 mg/dl Calcium Level 8.2 8.5-10.1 mg/dl Phosphorus Level 2.7 2.5-4.9 mg/dl Bedside Glucose 158 70-90 mg/dl
[2016-06-09] MEDS: MIRTAZAPINE TAB 15 MG TAB PO SCH (20:35)
[2016-06-09] MEDS: MONTELUKAST SOD 10 MG TAB PO SCH (20:36)
[2016-06-09] MEDS: HEPARIN SOD 5000 UNIT/0.5 ML CARP SQ SCH (21:34)
[2016-06-10] VITALS (10 sets, daily range): BP systolic 118–165; BP diastolic 60–74; PULSE 60–63; TEMP 36.7–37.3; O2SAT 94–97
[2016-06-10] MEDS: CLINDAMYCIN IV 600 MG in DEXTROSE 5% ADD-VANTAGE 50ML 50 ML IV SCH ×3 (04:35→20:48)
[2016-06-10] MEDS: LEVOTHYROXINE 50 MCG TAB PO SCH (06:00)
[2016-06-10] MEDS: HEPARIN SOD 5000 UNIT/0.5 ML CARP SQ SCH ×3 (06:06→22:27)
[2016-06-10 06:19] LABS: BUN/CREATININE RATIO 35.6 (10-20); CALCIUM 8.3 mg/dl (8.5-10.1); CREATININE 0.87 mg/dl (0.60-1.20)
[2016-06-10] MEDS: FERROUS SULFATE 325 MG TAB PO SCH (07:39)
[2016-06-10] MEDS: PANTOprazole SOD 40 MG TAB PO SCH ×2 (07:39→20:54)
[2016-06-10] MEDS: CLONIDINE HCL 0.1 MG TAB PO SCH ×2 (07:40→20:51)
[2016-06-10] MEDS: GABAPENTIN 100 MG CAP PO SCH ×3 (07:40→20:54)
[2016-06-10] MEDS: DOCUSATE SODIUM/SENNA 50/8.6MG TAB PO SCH ×2 (07:40→20:53)
[2016-06-10] MEDS: FLUTICASONE PROPIONATE NA SPR 16 GM BTL SCH (07:41)
[2016-06-10] MEDS: ATORVASTATIN 20 MG TAB PO SCH (07:41)
[2016-06-10] MEDS: METOPROLOL TARTRATE 50 MG TAB PO SCH ×2 (07:41→20:52)
[2016-06-10] MEDS: AMIODARONE 200 MG TAB PO SCH (07:41)
[2016-06-10] MEDS: POLYETHYLENE (MIRALAX) 17 GM PACK PO SCH (07:41)
[2016-06-10] MEDS: SERTRALINE HCL 100 MG TAB PO SCH (07:42)
[2016-06-10] MEDS: ALBUT/IPRATROP 3MG/0.5MG NEB 3 ML VIAL INH PRN ×2 (07:51→16:00)
[2016-06-10] MEDS: INSULIN ASPART 100 UNITS/ML 3 ML PEN SC SCH ×4 (09:10→21:03)
[2016-06-10] MEDS: INSULIN GLARGINE SOLOSTAR 100 UNITS/ML 3 ML PEN SC SCH (09:11)
[2016-06-10] MEDS: BOOST GLUCOSE CONTROL PO SCH (09:13)
--- NOTE | 2016-06-10 11:19 | SURGERY PROGRESS NOTE ---
DATE: 06/10/2016 DATE: 06/10/2016. Ms. Robledo was seen today on 06/10/2016. She is now postop day #12 status post a left thoracotomy with a Belsey-Jose IV repair of her recurrent hiatal hernia. The patient's cough has improved, but she still has one. Her lungs do sound better, although decreased breath sounds on the left. Her incision is clean. She really is not having much in the way of pain and her cough and respiratory excursion is better. I thought her x-ray looked better yesterday. We are going to check another x-ray tomorrow. Again, she needs aggressive physical therapy and occupational therapy.
--- NOTE | 2016-06-10 11:57 | Pharmacy Progress Note ---
Glycemic Control: Progress Nt Date of Service Jun 10, 2016. Scope Glycemic Pharmacist consulted by Dr Hinton on 05/15/16 for glycemic control and to write orders per [facility] inpatient glycemic control protocol. Objective Accuchecks BSG (last 24hrs): Test 06/09/16 12:15 06/09/16 16:19 06/09/16 20:28 06/10/16 05:16 Random Glucose 129 mg/dl (70-99) 131 mg/dl (70-99) Bedside Glucose 158 mg/dl (70-90) 216 mg/dl (70-90) Test 06/10/16 07:36 Bedside Glucose 144 mg/dl (70-90) Laboratory Data (last 24hrs) Test 06/09/16 12:15 06/10/16 05:16 Anion Gap 5.0 mmol/L 9.0 mmol/L BUN/Creatinine Ratio 34.0 35.6 Blood Urea Nitrogen 33 mg/dl 31 mg/dl Creatinine 0.97 mg/dl 0.87 mg/dl Potassium Level 4.5 mmol/L 4.0 mmol/L Sodium Level 146 mmol/L 149 mmol/L HbA1c: 7.0% 03/2016 Recent Pertinent Medications Outpatient Anti-diabetic Regimen: * Glipizide ER 2.5mg PO daily * A1c = 7.0 % 03/2016 The patient is currently receiving: * Basal insulin: Lantus 7 units SQ Q AM if BSG greater than 120 * Correctional Insulin: Novolog Correction per scale ACHS Goal Range: Low 120 mg/dL - High 160 mg/dL Correction Factor: 30 mg/dL/unit * Prandial insulin: Per carb ratio of 1 unit per 10 grams CHO consumed * Oral Agents: None currently Risk Factors for Insulin Resistance: * Steroids: Prednisone 10mg PO daily * Infection: Clindamycin IV for PNX * Diet: currently ordered Full Liquid diet and appears to be tolerating well per carb counts Assessment & Plan ASSESSMENT: 06/09/16 * Glycemic control remains acceptable at this time; BSGs ranged 148-184 over the last 24 hours * She appears to require ~20 units of insulin per day while tolerating the current diet and steroid dose * Would like to transition this patient to a set Lantus dose. Based upon the total insulin requirements of the last few days and fasting AM BSGs she likely will need between 5-10 units of basal per day * Lowering the goal range of the Novolog would be appropriate at this time based upon BSG trend and severity of illness 06/10/16 * Overall control remains good. Only one BSG > 180 in last 24 hours * Fasting BSG 144 with 5 units of Lantus on board. Patient begins a slightly larger dose today (7 units daily). Would expect higher dose to improve control. * Novolog doses appear appropriately set for current diet and stressors PLAN FOR INPATIENT GLYCEMIC CONTROL: * Continue Lantus 7 units SQ Q AM - hold if BSG less than 100 * Continuing correction factor of 30 mg/dl/unit * Continuing carb ratio of 1 unit per 10 grams CHO consumed * Continuing goal range of Low 120 mg/dL - High 160 mg/dL * Please note that the plan above was derived based on current level of insulin resistance and hospital stress. These recommendations are appropriate for inpatient admission only. Plan of care upon discharge will need to be reassessed to avoid potential outpatient hypo/hyperglycemia. Thank you.
--- NOTE | 2016-06-10 12:17 | Progress Note ---
Internal Med Progress Note Date of Service: Jun 10, 2016. Provider Documentation: SUBJECTIVE: The patient was seen and examined Back to Medical floor Video Swallow -Narrowing of the lower part of the Esophagus Keeps falling on ambulation Some SOB last night Aggressive PT/OT Denies any symptoms -generally weak OBJECTIVE: Vital Signs-as noted below Exam: General-Minimal distress at rest Generally weak and lethargic Eyes-Normal ENT-normal Neck-supple Lungs-Decreased breath sound bilaterally Heart-Irregular,no murmur Abdomen-Soft,huge ventral hernia ,no obstruction Extremities-Trace Edema both upper and Lower extremities Neuro-AAOx3 Lab data as noted below. ASSESSMENT & PLAN: 80 yoF with significant heart history and valve issues admitted for increased work of breathing 2/2 CHF exacerbation and copd exacerbation. More SOB last night CXR-CHF Got 40 mg IV Lasix CXR in AM Continue PT Hypoxemia with SOB CXR-no significant finding bur may have infiltration /Pneumonia Started on IV Clinda ,Nebs and Mucomyst Evaluated by Thoracic Surgery Transferred to Tele Condition improved a lot Did not need Bronchoscopy Appreciate Pulmonary input Clinically much better today Transfer back to floor and start vigorous PT Remains reasonably stable Advised more participation with Physical therapy Severe Belching Secondary huge hiatal hernia s/p status post left thoracotomy with Belsey Jose IV repair on 05/30/2016 Was in ICU following surgery Has been in Tele now s/p removal NG tube and chest tube removal Clinically much better now 06/04/16 Will have Liquid diet till of this month Belching is better controlled now Barium Swallow did show lower Esophageal narrowing likely due to post surgical edema Belching is improved Hx of kristina sylvester Was on amiodarone drip as patient is npo Restarted on po amiodarone, dose as per cardiology. Clinically stable and the rate is controlled Continue Amiodarone HTN Restarted po meds Lopressor and clonidine BP is still running high at times iv hydralazine prn Nutrition Started on liquid diet and will continue till of this month Thrombocytopenia Was placed on Lovenox post surgery which will be stopped f/u HIT studies-negative Improved Start SQ Heparin 06/09/16 Hospital course so far: Intial presentation with ACUTE HYPOXIC RESPIRATORY FAILURE, LIKELY MULTIFACTORIAL DUE TO ACUTE DIASTOLIC CHF AND/OR COPD EXACERBATION Presented with cough and SOB x 3 days; [facility] patient has been on prophylactic Tamilfu since 05/05 87% on room air on arrival, improved with oxygen 2L via NC Treated with steroids, Lasix and abx ECHO did not show any significant change compared with prior test Cardiology on board Cardiology started on lower dose Losartan which was stopped secondary to arf and hyperkalemia Requiring oxygen while sleeping on nocturna pulse ox study Prednisone on a tapering dose Appreciate Pulmonary input MITRAL VALVE ANOMALY ECHO::ECHO:: * Sinus rhythm was present during the echocardiogram. * There is a 0.6cm x 0.6cm mobile echodensity attached to ventricular surface of the mitral valve annulus near the left ventricular outflow tract. * Calcified mitral apparatus. * The aortic valve is moderately calcified. * Mild valvular aortic stenosis. * Moderate aortic regurgitation. * The left ventricular wall motion is normal. * Ejection Fraction = 60-65%. * Grade I diastolic dysfunction, (abnormal relaxation pattern). * Compared to the most recent echocardiogram, the echodensity is unchanged. cardiology on board stable cardiac condition ATRIAL FIBRILLATION on amiodarone and metoprolol rate controlled Not anticoagulated due to hx of hemorrhagic pericardial effusion and subdural hematoma s/p fall was on amiodarone drip post surgery back on po amiodarone SSS S/P PACER no acute issues ARF' baseline cr 1.2 to 1.3 Monitor labs. DM hgb a1c 7.0 03/2016 oral agents on hold. SSI while hospitalized will monitor GERD, HIATAL HERNIA on PPI/H2 filipe HYPOTHYROIDISM on levothyroxine DEPRESSION on sertraline DVT PROPHYLAXIS SCDs due to hx of hemorrhagic pericardial effusion and subdural hematoma Was on on Lovenox post surgery but platelets dropping- stopped Lovenox CODE STATUS DNR DISPO: social service for d/c planning Continue PT/OT Will need placement Vital Signs: Date Time Temp Pulse Resp B/P Pulse Ox O2 Delivery O2 Flow Rate FiO2 06/10/16 07:59 97 Nasal Cannula 2.0 06/10/16 07:57 36.8 61 16 165/68 97 2.0 06/10/16 07:52 63 16 97 Nasal Cannula 2.0 06/10/16 04:00 36.7 60 18 151/74 96 Nasal Cannula 2.0 06/09/16 23:59 Nasal Cannula 2.0 06/09/16 23:00 37.1 60 14 133/70 95 2.0 06/09/16 20:26 60 16 95 Nasal Cannula 2.0 06/09/16 20:00 Nasal Cannula 2.0 06/09/16 19:50 37.1 65 16 141/83 91 Room Air 06/09/16 16:33 36.7 65 18 159/71 95 Room Air 2.0 06/09/16 16:00 Nasal Cannula 2.0 06/09/16 13:19 36.1 Lab Results: Results Past 24 Hours Test 06/09/16 12:15 06/09/16 16:19 06/09/16 20:28 06/10/16 05:16 Range/Units Sodium Level 146 149 136-145 mmol/L Potassium Level 4.5 4.0 3.5-5.1 mmol/L Chloride Level 110 109 98-107 mmol/L Carbon Dioxide Level 31 31 21-32 mmol/L Anion Gap 5.0 9.0 3-11 mmol/L Blood Urea Nitrogen 33 31 7-18 mg/dl Creatinine 0.97 0.87 0.60-1.20 mg/dl Est Creatinine Clear Calc Drug Dose 50.7 56.1 ml/min Estimated GFR () 63.5 72.4 Estimated GFR (Non- 54.8 62.5 BUN/Creatinine Ratio 34.0 35.6 10-20 Random Glucose 129 131 70-99 mg/dl Calcium Level 8.2 8.3 8.5-10.1 mg/dl Phosphorus Level 2.7 2.5-4.9 mg/dl Bedside Glucose 158 216 70-90 mg/dl Test 06/10/16 07:36 Range/Units Bedside Glucose 144 70-90 mg/dl
[2016-06-10] MEDS: MIRTAZAPINE TAB 15 MG TAB PO SCH (20:53)
[2016-06-10] MEDS: MONTELUKAST SOD 10 MG TAB PO SCH (20:53)
[2016-06-10] MEDS: HYDROmorphone INJ 1 MG/ML SYR IV PRN (21:11)
[2016-06-11] VITALS (10 sets, daily range): BP systolic 102–143; BP diastolic 62–74; PULSE 56–73; TEMP 36.5–37.5; O2SAT 92–100
[2016-06-11] MEDS: CLINDAMYCIN IV 600 MG in DEXTROSE 5% ADD-VANTAGE 50ML 50 ML IV SCH ×3 (03:43→20:06)
[2016-06-11] MEDS: HEPARIN SOD 5000 UNIT/0.5 ML CARP SQ SCH ×3 (05:27→21:57)
[2016-06-11] MEDS: LEVOTHYROXINE 50 MCG TAB PO SCH (05:28)
[2016-06-11 06:25] LABS: BUN/CREATININE RATIO 32.5 (10-20); CALCIUM 8.3 mg/dl (8.5-10.1); CREATININE 0.88 mg/dl (0.60-1.20); MAGNESIUM 2.4 mg/dl (1.8-2.4); PHOSPHORUS 2.8 mg/dl (2.5-4.9); POTASSIUM 4.3 mmol/L (3.5-5.1)
[2016-06-11] MEDS: ALBUT/IPRATROP 3MG/0.5MG NEB 3 ML VIAL INH PRN ×2 (07:42→18:08)
[2016-06-11] MEDS: METOPROLOL TARTRATE 50 MG TAB PO SCH ×2 (09:00→20:14)
[2016-06-11] MEDS: SERTRALINE HCL 100 MG TAB PO SCH (09:01)
[2016-06-11] MEDS: GABAPENTIN 100 MG CAP PO SCH ×3 (09:01→20:13)
[2016-06-11] MEDS: DOCUSATE SODIUM/SENNA 50/8.6MG TAB PO SCH ×2 (09:01→20:14)
[2016-06-11] MEDS: ATORVASTATIN 20 MG TAB PO SCH (09:01)
[2016-06-11] MEDS: AMIODARONE 200 MG TAB PO SCH (09:01)
[2016-06-11] MEDS: FERROUS SULFATE 325 MG TAB PO SCH (09:01)
[2016-06-11] MEDS: FLUTICASONE PROPIONATE NA SPR 16 GM BTL SCH (09:02)
[2016-06-11] MEDS: POLYETHYLENE (MIRALAX) 17 GM PACK PO SCH (09:02)
[2016-06-11] MEDS: PANTOprazole SOD 40 MG TAB PO SCH ×2 (09:03→20:14)
[2016-06-11] MEDS: CLONIDINE HCL 0.1 MG TAB PO SCH ×2 (09:03→20:13)
[2016-06-11] MEDS: INSULIN ASPART 100 UNITS/ML 3 ML PEN SC SCH ×4 (09:08→19:58)
[2016-06-11] MEDS: INSULIN GLARGINE SOLOSTAR 100 UNITS/ML 3 ML PEN SC SCH (09:09)
--- NOTE | 2016-06-11 12:14 | DIAGNOSTIC IMAGING REPORT ---
CHEST ONE VIEW PORTABLE CLINICAL HISTORY: Pleural effusion. COMPARISON STUDY: Chest radiograph June 09, 2016. FINDINGS: A right PICC, dual-lead left subclavian pacemaker and cholecystectomy clips are noted. Bilateral pleural effusions, left larger than right, persist. There is interstitial thickening suggestive of pulmonary edema. There is dense left basilar opacity which is unchanged. There is mild right basilar opacity. IMPRESSION: 1. Small to moderate left and small right pleural effusions. 2. Dense left basilar opacity which may reflect pneumonia or atelectasis. 3. Pulmonary vascular congestion. Electronically signed by: John Quesada M.D. 06/11/2016 12:13 PM Dictated Date/Time: 06/11/2016 12:10 PM
--- NOTE | 2016-06-11 12:35 | SURGERY PROGRESS NOTE ---
DATE: 06/11/2016 Ms. Robledo was seen today on 06/11/2016. She has been on 2 liters of O2 with very good saturations, 96-98%. She is able to tolerate her diet. Her cough is improved. She sounds better to me. We are going to check a chest x-ray in the morning. She needs aggressive PT, OT.
--- NOTE | 2016-06-11 13:54 | Progress Note ---
Internal Med Progress Note Date of Service: Jun 11, 2016. Provider Documentation: SUBJECTIVE: The patient was seen and examined Remains stable Generally weak and lethargic-deconditioning Need aggressive PT OBJECTIVE: Vital Signs-as noted below Exam: General-Minimal distress at rest Generally weak and lethargic Eyes-Normal ENT-normal Neck-supple Lungs-Decreased breath sound bilaterally Heart-Irregular,no murmur Abdomen-Soft,huge ventral hernia ,no obstruction Extremities-Trace Edema both upper and Lower extremities Neuro-AAOx3 Lab data as noted below. ASSESSMENT & PLAN: 80 yoF with significant heart history and valve issues admitted for increased work of breathing 2/2 CHF exacerbation and copd exacerbation. More SOB last night CXR-Showed CHF Got 40 mg IV Lasix and repeated the next day CXR in AM -Minimal Bilateral effusion,Atelectasis and mild congestive change BUN is a little high-will not give any Lasix Continue PT Hypoxemia with SOB CXR-no significant finding bur may have infiltration /Pneumonia Started on IV Clinda ,Nebs and Mucomyst Evaluated by Thoracic Surgery Transferred to Tele Condition improved a lot Did not need Bronchoscopy Appreciate Pulmonary input Clinically much better today Transfer back to floor and start vigorous PT Remains reasonably stable Advised more participation with Physical therapy Severe Belching Secondary huge hiatal hernia s/p status post left thoracotomy with Belsey Jose IV repair on 05/30/2016 Was in ICU following surgery and then in Tele s/p removal NG tube and chest tube removal Clinically much better now 06/04/16 Will have Liquid diet till of this month Barium Swallow did show lower Esophageal narrowing likely due to post surgical edema Belching is improved Hx of a .fib Was on amiodarone drip as patient is npo Restarted on po amiodarone, dose as per cardiology. Clinically stable and the rate is controlled Continue Amiodarone HTN Restarted po meds Lopressor and clonidine BP is still running high at times iv hydralazine prn Nutrition Started on liquid diet and will continue till of this month Thrombocytopenia Was placed on Lovenox post surgery which will be stopped f/u HIT studies-negative Improved Start SQ Heparin 06/09/16 Hospital course so far: Intial presentation with ACUTE HYPOXIC RESPIRATORY FAILURE, LIKELY MULTIFACTORIAL DUE TO ACUTE DIASTOLIC CHF AND/OR COPD EXACERBATION Presented with cough and SOB x 3 days; influenza outbreak at [facility] however patient has been on prophylactic Tamilfu since 05/05 87% on room air on arrival, improved with oxygen 2L via NC Treated with steroids, Lasix and abx ECHO did not show any significant change compared with prior test Cardiology on board Cardiology started on lower dose Losartan which was stopped secondary to arf and hyperkalemia Requiring oxygen while sleeping on nocturna pulse ox study Prednisone on a tapering dose Appreciate Pulmonary input MITRAL VALVE ANOMALY ECHO::ECHO:: * Sinus rhythm was present during the echocardiogram. * There is a 0.6cm x 0.6cm mobile echodensity attached to ventricular surface of the mitral valve annulus near the left ventricular outflow tract. * Calcified mitral apparatus. * The aortic valve is moderately calcified. * Mild valvular aortic stenosis. * Moderate aortic regurgitation. * The left ventricular wall motion is normal. * Ejection Fraction = 60-65%. * Grade I diastolic dysfunction, (abnormal relaxation pattern). * Compared to the most recent echocardiogram, the echodensity is unchanged. cardiology on board stable cardiac condition ATRIAL FIBRILLATION on amiodarone and metoprolol rate controlled Not anticoagulated due to hx of hemorrhagic pericardial effusion and subdural hematoma s/p fall was on amiodarone drip post surgery back on po amiodarone SSS S/P PACER no acute issues ARF' baseline cr 1.2 to 1.3 Monitor labs. DM hgb a1c 7.0 03/2016 oral agents on hold. SSI while hospitalized will monitor GERD, HIATAL HERNIA on PPI/H2 filipe HYPOTHYROIDISM on levothyroxine DEPRESSION on sertraline DVT PROPHYLAXIS SCDs due to hx of hemorrhagic pericardial effusion and subdural hematoma Was on on Lovenox post surgery but platelets dropping- stopped Lovenox CODE STATUS DNR DISPO: social service for d/c planning Continue PT/OT Will need placement-Rehave Vital Signs: Date Time Temp Pulse Resp B/P Pulse Ox O2 Delivery O2 Flow Rate FiO2 06/11/16 11:12 37.1 56 18 143/74 98 Nasal Cannula 2.0 06/11/16 09:00 96 Nasal Cannula 2.0 06/11/16 07:42 60 16 96 Nasal Cannula 2.0 06/11/16 06:59 36.5 59 20 137/70 98 Nasal Cannula 2.0 06/11/16 04:48 36.7 59 18 139/70 95 Nasal Cannula 2.0 06/11/16 00:00 97 Nasal Cannula 2.0 06/10/16 23:29 37.1 61 18 146/69 94 Nasal Cannula 2.0 06/10/16 19:45 36.9 60 18 127/62 97 Nasal Cannula 2.0 06/10/16 16:01 60 16 97 Nasal Cannula 2.0 06/10/16 16:00 95 Nasal Cannula 2.0 06/10/16 15:06 37.3 60 16 128/68 95 2.0 Lab Results: Results Past 24 Hours Test 06/10/16 16:44 06/10/16 20:05 06/11/16 05:11 06/11/16 07:30 Range/Units Bedside Glucose 154 174 129 70-90 mg/dl Sodium Level 147 136-145 mmol/L Potassium Level 4.3 3.5-5.1 mmol/L Chloride Level 109 98-107 mmol/L Carbon Dioxide Level 31 21-32 mmol/L Anion Gap 7.0 3-11 mmol/L Blood Urea Nitrogen 29 7-18 mg/dl Creatinine 0.88 0.60-1.20 mg/dl Est Creatinine Clear Calc Drug Dose 54.9 ml/min Estimated GFR () 71.4 Estimated GFR (Non- 61.6 BUN/Creatinine Ratio 32.5 10-20 Random Glucose 114 70-99 mg/dl Calcium Level 8.3 8.5-10.1 mg/dl Phosphorus Level 2.8 2.5-4.9 mg/dl Magnesium Level 2.4 1.8-2.4 mg/dl Test 06/11/16 11:24 Range/Units Bedside Glucose 149 70-90 mg/dl
--- NOTE | 2016-06-11 14:46 | Pharmacy Progress Note ---
Glycemic Control: Progress Nt Date of Service Jun 11, 2016. Scope Glycemic Pharmacist consulted by Dr Hinton on 05/15/16 for glycemic control and to write orders per [facility] inpatient glycemic control protocol. Objective Accuchecks BSG (last 24hrs): Test 06/10/16 16:44 06/10/16 20:05 06/11/16 05:11 06/11/16 07:30 Bedside Glucose 154 mg/dl (70-90) 174 mg/dl (70-90) 129 mg/dl (70-90) Random Glucose 114 mg/dl (70-99) Test 06/11/16 11:24 Bedside Glucose 149 mg/dl (70-90) Laboratory Data (last 24hrs) Test 06/11/16 05:11 Anion Gap 7.0 mmol/L BUN/Creatinine Ratio 32.5 Blood Urea Nitrogen 29 mg/dl Creatinine 0.88 mg/dl Potassium Level 4.3 mmol/L Sodium Level 147 mmol/L HbA1c: 7% 03/2016 Recent Pertinent Medications Outpatient Anti-diabetic Regimen: * Glipizide ER 2.5mg PO daily * A1c = 7.0 % 03/2016 The patient is currently receiving: * Basal insulin: Lantus 7 units SQ Q AM if BSG greater than 100 * Correctional Insulin: Novolog Correction per scale ACHS Goal Range: Low 120 mg/dL - High 160 mg/dL Correction Factor: 30 mg/dL/unit * Prandial insulin: Per carb ratio of 1 unit per 10 grams CHO consumed * Oral Agents: None currently Risk Factors for Insulin Resistance: * Steroids: Prednisone 10mg PO daily * Infection: Clindamycin IV for PNX * Diet: currently ordered Full Liquid diet and appeared to be tolerating well per carb counts yesterday, today carb counts are much less Assessment & Plan ASSESSMENT: 06/09/16 * Glycemic control remains acceptable at this time; BSGs ranged 148-184 over the last 24 hours * She appears to require ~20 units of insulin per day while tolerating the current diet and steroid dose * Would like to transition this patient to a set Lantus dose. Based upon the total insulin requirements of the last few days and fasting AM BSGs she likely will need between 5-10 units of basal per day * Lowering the goal range of the Novolog would be appropriate at this time based upon BSG trend and severity of illness 06/10/16 * Overall control remains good. Only one BSG > 180 in last 24 hours * Fasting BSG 144 with 5 units of Lantus on board. Patient begins a slightly larger dose today (7 units daily). Would expect higher dose to improve control. * Novolog doses appear appropriately set for current diet and stressors 06/11/16 * No need for changes to insulin regimen at this time, all BSGs at goal over last 24 hrs PLAN FOR INPATIENT GLYCEMIC CONTROL: * Continue Lantus 7 units SQ Q AM - hold if BSG less than 100 * Continuing correction factor of 30 mg/dl/unit * Continuing carb ratio of 1 unit per 10 grams CHO consumed * Continuing goal range of Low 120 mg/dL - High 160 mg/dL * Please note that the plan above was derived based on current level of insulin resistance and hospital stress. These recommendations are appropriate for inpatient admission only. Plan of care upon discharge will need to be reassessed to avoid potential outpatient hypo/hyperglycemia. Thank you.
[2016-06-11] MEDS: MONTELUKAST SOD 10 MG TAB PO SCH (20:13)
[2016-06-11] MEDS: MIRTAZAPINE TAB 15 MG TAB PO SCH (20:14)
[2016-06-12] VITALS (11 sets, daily range): BP systolic 121–159; BP diastolic 66–78; PULSE 58–91; TEMP 36.6–36.9; O2SAT 82–98
[2016-06-12 02:00] LABS: MANUAL MICROSCOPIC REQUIRED? YES; URINE APPEARANCE SL CLOUDY (CLEAR); URINE BILIRUBIN NEG (NEG); URINE COLOR YELLOW; URINE NITRITE NEG (NEG); URINE PH 8.5 (4.5-7.5); URINE SPECIFIC GRAVITY 1.015 (1.000-1.030); UROBILINOGEN NEG (NEG)
[2016-06-12 02:06] LABS: REVIEW REQ? NO; SULFASALICYLIC ACID NEG (NEG)
[2016-06-12 02:10] LABS: URINE BACTERIA 2+ (NEG); ZZUR CULT IF INDIC CLEAN CATCH YES
[2016-06-12] MEDS: CLINDAMYCIN IV 600 MG in DEXTROSE 5% ADD-VANTAGE 50ML 50 ML IV SCH (04:00)
[2016-06-12] MEDS: HEPARIN SOD 5000 UNIT/0.5 ML CARP SQ SCH ×3 (05:32→20:48)
[2016-06-12] MEDS: LEVOTHYROXINE 50 MCG TAB PO SCH (05:33)
[2016-06-12 06:11] LABS: HEMATOCRIT 27.8 % (37-47); MEAN CELL VOLUME 100.4 fL (80-100); MEAN CORPUSCULAR HEMOGLOBIN 30.7 pg (25-34); MEAN CORPUSCULAR HGB CONC 30.6 g/dl (32-36); MEAN PLATELET VOLUME 8.9 fL (7.4-10.4); PLATELET COUNT 161 K/uL (130-400); RED BLOOD COUNT 2.77 M/uL (4.2-5.4); WHITE BLOOD COUNT 10.38 K/uL (4.8-10.8)
[2016-06-12 06:33] LABS: CREATININE 0.88 mg/dl (0.60-1.20)
[2016-06-12] MEDS: SERTRALINE HCL 100 MG TAB PO SCH (08:13)
[2016-06-12] MEDS: FERROUS SULFATE 325 MG TAB PO SCH (08:13)
[2016-06-12] MEDS: ATORVASTATIN 20 MG TAB PO SCH (08:13)
[2016-06-12] MEDS: CLONIDINE HCL 0.1 MG TAB PO SCH ×2 (08:13→20:30)
[2016-06-12] MEDS: DOCUSATE SODIUM/SENNA 50/8.6MG TAB PO SCH ×2 (08:14→20:31)
[2016-06-12] MEDS: METOPROLOL TARTRATE 50 MG TAB PO SCH ×2 (08:14→20:32)
[2016-06-12] MEDS: PANTOprazole SOD 40 MG TAB PO SCH ×2 (08:14→20:32)
[2016-06-12] MEDS: AMIODARONE 200 MG TAB PO SCH (08:14)
[2016-06-12] MEDS: GABAPENTIN 100 MG CAP PO SCH ×3 (08:14→20:31)
[2016-06-12] MEDS: FLUTICASONE PROPIONATE NA SPR 16 GM BTL SCH (08:15)
[2016-06-12] MEDS: POLYETHYLENE (MIRALAX) 17 GM PACK PO SCH (08:15)
[2016-06-12] MEDS: INSULIN ASPART 100 UNITS/ML 3 ML PEN SC SCH ×4 (08:52→20:48)
[2016-06-12] MEDS: INSULIN GLARGINE SOLOSTAR 100 UNITS/ML 3 ML PEN SC SCH (08:53)
--- NOTE | 2016-06-12 08:53 | DIAGNOSTIC IMAGING REPORT ---
CHEST ONE VIEW PORTABLE CLINICAL HISTORY: hypoxia dyspnea COMPARISON STUDY: 06/11/2016 FINDINGS: Left pleural effusion and/or left basilar consolidation unchanged. Bipolar cardiac pacemaker and PICC catheter unchanged in position. Right lung remains generally clear. Minimal consolidative change medial right base. Pulmonary vasculature prominence remains unaltered. IMPRESSION: No change radiographically compared to the prior study. Electronically signed by: Jose Keyes M.D. 06/12/2016 8:52 AM Dictated Date/Time: 06/12/2016 8:51 AM
--- NOTE | 2016-06-12 09:50 | Cardiology Follow-Up ---
Subjective General Date of Service: Jun 12, 2016. Chief Complaint: SOB Pt evaluation today including: conversation w/ patient, physical exam History of Present Illness The patient is a 80 year old female seen in follow up. Patient denies chest pain or current shortness of breath. Just generalized fatigue. Dyspepsia is improved since hernia repair. Allergies Coded Allergies: Penicillins (Verified Allergy, Mild, rash, 05/13/16) Morphine (Verified Allergy, Unknown, UNKNOWN, 05/13/16) GAMALIEL Inhibitors (Verified Adverse Reaction, Intermediate, HYPERKALEMIA, 06/01) Angiotensin Receptor Blockers (Verified Adverse Reaction, Intermediate, HYPERKALEMIA, 06/01/16) Codeine (Verified Adverse Reaction, Unknown, MAKES ME HIGH, 05/13/16) Social History Smoking Status: Never Smoker Hx Tobacco Use In Past Year?: No Hx Alcohol Use - Type And Amou: No Hx Substance Use - Type And Am: No Problem List Medical Problems: (1) Abdominal pain Status: Acute (2) Chest pain Status: Acute (3) CHF (congestive heart failure) Status: Acute (4) Chronic obstructive pulmonary disease Status: Acute (5) Constipation Status: Acute (6) Cough Status: Acute (7) Hypoxia Status: Acute (8) Left sided chest pain Status: Acute (9) Pneumonia Status: Acute (10) Shortness of breath Status: Acute (11) Symptomatic bradycardia Status: Acute (12) Traumatic intracranial hemorrhage Status: Acute Physical Exam Vital Signs Last Vital Signs Documentation Date Time Temp Pulse Resp B/P Pulse Ox O2 Delivery O2 Flow Rate FiO2 06/12/16 07:26 36.7 59 20 126/74 98 Nasal Cannula 2.0 06/05/16 14:15 35 Physical Exam Constitutional: General Apperance: overweight Level of Distress: acutely ill, chronically ill Psychiatric: Orientation: to time, to place, to person Head: normocephalic Eyes: Pupils: PERRLA Neck: supple Lungs: Auscultation: no wheezing, no rales/crackles Cardiovascular: Heart Auscultation: RRR, normal S1, normal S2, II/ SAMANTHA Abdomen: Bowel Sounds: normal Inspection & Palpation: soft, no tenderness, guarding & rebound Extremities: no edema, no clubbing Neurologic: Gait & Station: pertinent finding (No focal motor deficit) Cranial Nerves: grossly intact Assessment and Plan Assessment and Plan ASSESSMENT: 1. Post op, complex hiatal hernia repair. 2. PAF, in SR on exam today, has PPM for tachy/ oumar syndrome, not on anticoagulation due to past hemopericardium , and fall risk with past head trauma 3. s/p respiratory distress several days ago, resolved. 4. h/o diastolic HF, compensated at present 5. severe MAC, with mobile calcified echodensity on MV annulus adjacent to the LV outflow tract, possible calcified ruptured chord or healed vegetation. RECOMMENDATIONS: Losartan stopped due to rising creatinine and hyperkalemia earlier this admission. Reduce oral amiodarone back to prior maintenance dose of 200 mg PO daily. Sub Q heparin for DVT prophylaxis. Laboratory Results Last 24 Hours Test 06/11/16 11:24 06/11/16 16:33 06/11/16 19:52 06/12/16 01:45 Bedside Glucose 149 mg/dl 161 mg/dl 160 mg/dl Urine Color YELLOW Urine Appearance SL CLOUDY Urine pH 8.5 Urine Specific [place] 1.015 Urine Protein NEG Urine Glucose (UA) NEG Urine Ketones NEG Urine Occult Blood 1+ Urine Nitrite NEG Urine Bilirubin NEG Urine Urobilinogen NEG Urine Leukocyte Esterase MODERATE Urine RBC 5-10 /hpf Urine WBC 10-30 /hpf Urine Epithelial Cells >30 /lpf Urine Calcium Oxalate Crystals PRESENT Urine Bacteria 2+ Test 06/12/16 05:34 06/12/16 07:43 White Blood Count 10.38 K/uL Red Blood Count 2.77 M/uL Hemoglobin 8.5 g/dL Hematocrit 27.8 % Mean Corpuscular Volume 100.4 fL Mean Corpuscular Hemoglobin 30.7 pg Mean Corpuscular Hemoglobin Concent 30.6 g/dl RDW Standard Deviation 60.7 fL RDW Coefficient of Variation 16.6 % Platelet Count 161 K/uL Mean Platelet Volume 8.9 fL Nucleated RBC Absolute Count (auto) 0.06 K/uL Nucleated Red Blood Cells % 0.5 % Creatinine 0.88 mg/dl Est Creatinine Clear Calc Drug Dose 55.5 ml/min Estimated GFR () 71.4 Estimated GFR (Non- 61.6 Bedside Glucose 139 mg/dl
--- NOTE | 2016-06-12 10:05 | SURGERY PROGRESS NOTE ---
DATE: 06/12/2016 Ms. Robledo was seen today on 06/12/2016. Her white count is normal 10,380. Hemoglobin stable at 8.5. Her creatinine is 0.88 this morning. Her blood sugars have been much better controlled, between 139 and 161 over the last 24 hours. She is still on 2 liters of O2, but her sats are up to 98%. The problem is her chest x-ray. She has increasing opacification in her left base, and I think that a CT scan should be done to see if there is something that needs to be drained. If she has atelectasis, I would consider a bronchoscopy and if she has fluid, I would consider drainage. It would be nice get her off the oxygen.
--- NOTE | 2016-06-12 12:01 | Progress Note ---
Internal Med Progress Note Date of Service: Jun 12, 2016. Provider Documentation: SUBJECTIVE: The patient was seen and examined Generally weak and lethargic-deconditioning Minimal SOB at rest No CP ,palpitation NO nausea and or vomiting OBJECTIVE: Vital Signs-as noted below Exam: General-Minimal distress at rest Generally weak and lethargic Eyes-Normal ENT-normal Neck-supple Lungs-Decreased breath sound bilaterally More on the left base Heart-Irregular,no murmur Abdomen-Soft,huge ventral hernia ,no obstruction Extremities-Trace Edema both upper and Lower extremities Neuro-AAOx3 Lab data as noted below. ASSESSMENT & PLAN: 80 yoF with significant heart history and valve issues admitted for increased work of breathing 2/2 CHF exacerbation and copd exacerbation. More SOB 0n 06/05/16 CXR-Showed CHF Got 40 mg IV Lasix and repeated the next day Repeat CXR -Minimal Bilateral effusion,Atelectasis and mild congestive change BUN is a little high-will not give any Lasix Continue PT CT of the chest has been requested on 06/12/16 Hypoxemia with SOB 06/05/16 CXR-no significant finding bur may have infiltration /Pneumonia Started on IV Clinda ,Nebs and Mucomyst Evaluated by Thoracic Surgery Transferred to Tele Condition improved a lot Did not need Bronchoscopy Appreciate Pulmonary input Clinically much better today Transferred back to floor and start vigorous PT Advised more participation with Physical therapy Await CT of the Chest and d/c antibiotic after that if appropriate Severe Belching Secondary huge hiatal hernia s/p status post left thoracotomy with Belsey Jose IV repair on 05/30/2016 Was in ICU following surgery and then in Tele s/p removal NG tube and chest tube removal Clinically much better now 06/04/16 Will have Liquid diet till of this month Barium Swallow did show lower Esophageal narrowing likely due to post surgical edema Belching is improved Hx of a .fib Was on amiodarone drip as patient is npo Restarted on po amiodarone, dose as per cardiology. Clinically stable and the rate is controlled Continue Amiodarone HTN Restarted po meds Lopressor and clonidine BP is still running high at times iv hydralazine prn Nutrition Started on liquid diet and will continue till of this month Thrombocytopenia Was placed on Lovenox post surgery which will be stopped f/u HIT studies-negative Improved Start SQ Heparin 06/09/16 Hospital course so far: Intial presentation with ACUTE HYPOXIC RESPIRATORY FAILURE, LIKELY MULTIFACTORIAL DUE TO ACUTE DIASTOLIC CHF AND/OR COPD EXACERBATION Presented with cough and SOB x 3 days; influenza outbreak at [facility] however patient has been on prophylactic [place]fu since 05/05 87% on room air on arrival, improved with oxygen 2L via NC Treated with steroids, Lasix and abx ECHO did not show any significant change compared with prior test Cardiology on board Cardiology started on lower dose Losartan which was stopped secondary to arf and hyperkalemia Requiring oxygen while sleeping on nocturna pulse ox study Prednisone on a tapering dose Appreciate Pulmonary input MITRAL VALVE ANOMALY ECHO::ECHO:: * Sinus rhythm was present during the echocardiogram. * There is a 0.6cm x 0.6cm mobile echodensity attached to ventricular surface of the mitral valve annulus near the left ventricular outflow tract. * Calcified mitral apparatus. * The aortic valve is moderately calcified. * Mild valvular aortic stenosis. * Moderate aortic regurgitation. * The left ventricular wall motion is normal. * Ejection Fraction = 60-65%. * Grade I diastolic dysfunction, (abnormal relaxation pattern). * Compared to the most recent echocardiogram, the echodensity is unchanged. cardiology on board stable cardiac condition ATRIAL FIBRILLATION on amiodarone and metoprolol rate controlled Not anticoagulated due to hx of hemorrhagic pericardial effusion and subdural hematoma s/p fall was on amiodarone drip post surgery back on po amiodarone SSS S/P PACER no acute issues ARF' baseline cr 1.2 to 1.3 Monitor labs. DM hgb a1c 7.0 03/2016 oral agents on hold. SSI while hospitalized will monitor GERD, HIATAL HERNIA on PPI/H2 filipe HYPOTHYROIDISM on levothyroxine DEPRESSION on sertraline DVT PROPHYLAXIS SCDs due to hx of hemorrhagic pericardial effusion and subdural hematoma Was on on Lovenox post surgery but platelets dropping- stopped Lovenox CODE STATUS DNR DISPO: social service for d/c planning Continue PT/OT Will need placement-Rehab placement Vital Signs: Date Time Temp Pulse Resp B/P Pulse Ox O2 Delivery O2 Flow Rate FiO2 06/12/16 10:54 36.7 62 20 124/78 97 Nasal Cannula 2.0 06/12/16 08:30 96 Nasal Cannula 2.0 06/12/16 07:26 36.7 59 20 126/74 98 Nasal Cannula 2.0 06/12/16 05:15 36.8 58 20 148/66 94 Nasal Cannula 2.0 06/12/16 00:14 97 Nasal Cannula 2.0 06/11/16 22:56 36.5 60 20 131/68 97 Nasal Cannula 2.0 06/11/16 20:00 Nasal Cannula 2.0 06/11/16 19:34 37.5 62 18 135/67 92 Nasal Cannula 2.0 06/11/16 18:09 64 16 97 Nasal Cannula 2.0 06/11/16 16:00 Nasal Cannula 06/11/16 14:42 37.0 73 20 102/62 100 Nasal Cannula 2.0 Lab Results: Results Past 24 Hours Test 06/11/16 16:33 06/11/16 19:52 06/12/16 01:45 06/12/16 05:34 Range/Units Bedside Glucose 161 160 70-90 mg/dl Urine Color YELLOW Urine Appearance SL CLOUDY CLEAR Urine pH 8.5 4.5-7.5 Urine Specific [place] 1.015 1.000-1.030 Urine Protein NEG NEG Urine Glucose (UA) NEG NEG Urine Ketones NEG NEG Urine Occult Blood 1+ NEG Urine Nitrite NEG NEG Urine Bilirubin NEG NEG Urine Urobilinogen NEG NEG Urine Leukocyte Esterase MODERATE NEG Urine RBC 5-10 0-4 /hpf Urine WBC 10-30 0-5 /hpf Urine Epithelial Cells >30 0-5 /lpf Urine Calcium Oxalate Crystals PRESENT NONE PRSENT Urine Bacteria 2+ NEG White Blood Count 10.38 4.8-10.8 K/uL Red Blood Count 2.77 4.2-5.4 M/uL Hemoglobin 8.5 12.0-16.0 g/dL Hematocrit 27.8 37-47 % Mean Corpuscular Volume 100.4 80-100 fL Mean Corpuscular Hemoglobin 30.7 25-34 pg Mean Corpuscular Hemoglobin Concent 30.6 32-36 g/dl RDW Standard Deviation 60.7 36.4-46.3 fL RDW Coefficient of Variation 16.6 11.5-14.5 % Platelet Count 161 130-400 K/uL Mean Platelet Volume 8.9 7.4-10.4 fL Nucleated RBC Absolute Count (auto) 0.06 0-0 K/uL Nucleated Red Blood Cells % 0.5 % Creatinine 0.88 0.60-1.20 mg/dl Est Creatinine Clear Calc Drug Dose 55.5 ml/min Estimated GFR () 71.4 Estimated GFR (Non- 61.6 Test 06/12/16 07:43 Range/Units Bedside Glucose 139 70-90 mg/dl Microbiology Results 06/12/16 Urine Culture, Received Pending
[2016-06-12] MEDS ORDERED: ACETAMINOPHEN SOLN 650MG/20.3 ML UDC PO PRN (12:30)
--- NOTE | 2016-06-12 12:45 | DIAGNOSTIC IMAGING REPORT ---
CT OF THE CHEST WITHOUT IV CONTRAST CLINICAL HISTORY: Acute respiratory failure. Hypoxia. Pleural effusion. Status post hiatal hernia repair on May 30, 2016. COMPARISON STUDY: Chest CT May 23, 2016 and chest radiograph from earlier today. CT DOSE: 1095.89 mGy.cm TECHNIQUE: Axial images of the chest were obtained without IV contrast. Images were reviewed in the axial, sagittal, and coronal planes. IV contrast was not administered for this examination. FINDINGS: A right PICC and left subclavian pacemaker are noted. There is moderate cardiomegaly. There is no pericardial effusion. Note is made of a suspected enlarged AP window lymph node that measures 2.1 cm. This is similar to CT of April 26, 2015. There are post surgical findings consistent with a hiatal hernia repair. There is infiltration and fluid within the operative bed. The findings are suboptimally assessed on this unenhanced exam. A few locules of extraluminal gas are suspected. There is a small amount of contrast within the stomach and duodenum likely from recent modified barium swallow. Note is made of suspected mediastinal gas shown best on axial image 198 of 301 and 183 of 301. There is also a small amount of oral contrast possibly within the mediastinum shown on image 198. The size of the hernia has markedly diminished. There is a small to moderate left pleural effusion. A trace loculated right pleural effusion is present. There is no pneumothorax. Scattered groundglass opacities suggest atelectasis. A few nodular densities within the lungs are noted. There is no confluence consolidation to suggest pneumonia. Mild dilatation of the thoracic aorta is unchanged. IMPRESSION: 1. Small to moderate loculated left pleural effusion with significant lingular and left lower lobe volume loss. 2. Small loculated right pleural effusion. 3. Postsurgical findings consistent with a recent hiatal hernia repair. These findings are suboptimally assessed on this exam due to loss of fat planes within the operative bed and lack of contrast. Infiltration and fluid within the operative bed are not unexpected in the early postoperative setting. Small amount of suspected mediastinal gas within the operative bed as well as a small amount of extraluminal mediastinal contrast from recent fluoroscopic study. While not definitive, the findings raise the possibility of a contained leak. 4. Moderate cardiomegaly. Electronically signed by: John Quesada M.D. 06/12/2016 12:44 PM Dictated Date/Time: 06/12/2016 12:19 PM
[2016-06-12] MEDS: ALBUT/IPRATROP 3MG/0.5MG NEB 3 ML VIAL INH PRN (12:55)
--- NOTE | 2016-06-12 14:06 | Pharmacy Progress Note ---
Glycemic: Assessment & Plan Date of Service Jun 12, 2016. Assessment & Plan Outpatient Anti-diabetic Regimen: * Glipizide ER 2.5mg PO daily * A1c = 7.0 % 03/2016 ASSESSMENT: 06/09/16 * Glycemic control remains acceptable at this time; BSGs ranged 148-184 over the last 24 hours * She appears to require ~20 units of insulin per day while tolerating the current diet and steroid dose * Would like to transition this patient to a set Lantus dose. Based upon the total insulin requirements of the last few days and fasting AM BSGs she likely will need between 5-10 units of basal per day * Lowering the goal range of the Novolog would be appropriate at this time based upon BSG trend and severity of illness 06/10/16 * Overall control remains good. Only one BSG > 180 in last 24 hours * Fasting BSG 144 with 5 units of Lantus on board. Patient begins a slightly larger dose today (7 units daily). Would expect higher dose to improve control. * Novolog doses appear appropriately set for current diet and stressors 06/11/16 * No need for changes to insulin regimen at this time, all BSGs at goal over last 24 hrs 06/12/16: * Patient has been receiving ~20 units of insulin per day for the past several days, with relatively good/stable glycemic control (BSGs ranging from 114 - 174 mg/dL over the past 48+ hours). * No changes to her insulin regimen have been made during the past 3 days. * Pharmacy will sign-off on glycemic management at this time. If patient's condition changes or glycemic control again becomes unstable, please feel free to re-consult pharmacy. Thank you. PLAN FOR INPATIENT GLYCEMIC CONTROL: * Continue Lantus 7 units SQ Q AM - hold if BSG less than 100 * Continuing correction factor of 30 mg/dl/unit * Continuing carb ratio of 1 unit per 10 grams CHO consumed * Continuing goal range of Low 120 mg/dL - High 160 mg/dL * Please note that the plan above was derived based on current level of insulin resistance and hospital stress. These recommendations are appropriate for inpatient admission only. Plan of care upon discharge will need to be reassessed to avoid potential outpatient hypo/hyperglycemia. Thank you.
--- NOTE | 2016-06-12 15:30 | PULMONARY PROGRESS NOTE ---
DATE: 06/12/2016 TIME: 3:00 p.m. SUBJECTIVE: The patient denies significant shortness of breath. She admits to having a cough. She states 3-4 times per day, she will cough out a little bit of mucus. The mucus is clear. She denies chest pains, chills, fevers or sweats. She complains of only having liquids to drink. She was not the best historian. OBJECTIVE: GENERAL: The patient was somewhat lethargic. She was readily arousable. She seems to be a very low energy. VITAL SIGNS: Temperature is 36.7. ENT: Unremarkable. NECK: Palpation of the neck reveals no lymph nodes. CHEST: Showed diminished excursions. I tried with marked difficulty to get the patient to take deep breaths. I had her demonstrate incentive spirometry. She could only do about 270 mL. However, she did not appear to be doing it correctly. The breath sounds are decreased bilaterally, but more so on the left than the right. No rales were heard. ABDOMEN: Somewhat obese. Her BMI is 40.4. She appears to have abdominal herniations. Bowel sounds were present. There was no tenderness to palpation. EXTREMITIES: Showed no cyanosis, clubbing or edema. There was a discrepancy in the size of her legs with the left being smaller than the right. HEART: Not mentioned above, is that the patient has a systolic murmur grade 2/6 heard. IMAGING DATA: The patient had a CAT scan of the chest done today. This revealed a small to moderate loculated left pleural effusion with associated volume loss. There is an enlarged AP window lymph node measuring 2.1 cm that is similar to a prior CAT scan done 04/26/2015. IMPRESSIONS: 1. Status post hiatal hernia repair. 2. Left pleural effusion - loculated. 3. Coexistent left lung atelectasis. COMMENTS AND RECOMMENDATIONS: I am seeing this patient for the first time. She does have incomplete aeration of the left lung, due to a combined atelectasis and effusion. She needs a lot of encouragement to do incentive spirometry. She indicates she is expectorating some phlegm. I am not sure how she would do with a flutter valve. Her prior blood gas from several weeks ago did show some hypercarbia. Will recheck that to see what her status of hypercarbia is. [facility]
[2016-06-12] MEDS: MONTELUKAST SOD 10 MG TAB PO SCH (20:30)
[2016-06-12] MEDS: IPRATROPIUM BROMIDE NEB SOLN 0.02% 2.5 ML VIAL INH PRN (23:53)
[2016-06-12] MEDS: LEVALBUTEROL 1.25MG/0.5ML NEB INH PRN (23:53)
[2016-06-13] VITALS (9 sets, daily range): BP systolic 105–166; BP diastolic 50–81; PULSE 59–63; TEMP 36.5–36.9; O2SAT 92–98
[2016-06-13] MEDS: HEPARIN SOD 5000 UNIT/0.5 ML CARP SQ SCH ×2 (05:57→13:21)
[2016-06-13] MEDS: LEVOTHYROXINE 50 MCG TAB PO SCH (06:08)
[2016-06-13] MEDS: LEVALBUTEROL 1.25MG/0.5ML NEB INH PRN ×2 (06:11→16:06)
[2016-06-13] MEDS: IPRATROPIUM BROMIDE NEB SOLN 0.02% 2.5 ML VIAL INH PRN ×2 (06:11→16:06)
[2016-06-13 08:22] LABS: ARTERIAL BLD GAS O2 SATURATION 90.6 % (90-95); ARTERIAL BLOOD GAS HCO3 32 mmol/L (19-24); ARTERIAL BLOOD GAS PO2 64 mm/Hg (80-95)
[2016-06-13] MEDS: SERTRALINE HCL 100 MG TAB PO SCH (08:31)
[2016-06-13] MEDS: FERROUS SULFATE 325 MG TAB PO SCH (08:31)
[2016-06-13] MEDS: POLYETHYLENE (MIRALAX) 17 GM PACK PO SCH (08:31)
[2016-06-13] MEDS: ATORVASTATIN 20 MG TAB PO SCH (08:31)
[2016-06-13] MEDS: METOPROLOL TARTRATE 50 MG TAB PO SCH ×2 (08:31→20:34)
[2016-06-13] MEDS: AMIODARONE 200 MG TAB PO SCH (08:31)
[2016-06-13] MEDS: FLUTICASONE PROPIONATE NA SPR 16 GM BTL SCH (08:32)
[2016-06-13] MEDS: PANTOprazole SOD 40 MG TAB PO SCH ×2 (08:32→20:35)
[2016-06-13] MEDS ORDERED: ACETAMINOPHEN 325 MG TAB ONE (08:46)
[2016-06-13] MEDS: INSULIN GLARGINE SOLOSTAR 100 UNITS/ML 3 ML PEN SC SCH (08:48)
[2016-06-13] MEDS ORDERED: NURSING DECISION MEDICATION ORDER SCH (09:00)
[2016-06-13 09:36] LABS: ALLEN TEST POS (POS); O2 ADMINISTRATION 2L
--- NOTE | 2016-06-13 09:49 | SURGERY PROGRESS NOTE ---
DATE: 06/13/2016 Mrs. Robledo was seen today on 06/13/2016. She has been afebrile. Heart rate has been in the 50s-60s. Blood pressure has been fine. On 2 liters she has had 98% saturation. Her lungs actually do not sound bad although she has decreased breath sounds on the left base. Her incision is clean. I reviewed her CT scan from yesterday and she has some loculated homogeneous effusion along the periphery. I believe this is postsurgical. I also do not feel we are dealing with any type of infection. As her A-a gradient is improving I will not address this. I do not think a simple tube being placed is going to drain this. I could make a case for putting a PleurX catheter and instituting the MIST-2 protocol, but I do not think that is indicated at this point. Her bigger problem is she is complaining of this cough. I do not think it is related to the fluid. She does have some compressive atelectasis due to fluid of the left lower lobe. Most important thing for this patient is to get up and moving. I believe this fluid will resolve on its own and would prefer not to intervene on her again, although if she does not progress like I want her to, we may do that. Her cough appears to be upper respiratory to me. I do not think she is aspirating. At this point, I think simply pushing her with physical therapy and occupational therapy would be preferred. It should be noted the patient is refusing physical therapy. [facility]TDD
[2016-06-13] MEDS: INSULIN ASPART 100 UNITS/ML 3 ML PEN SC SCH ×4 (09:51→20:29)
--- NOTE | 2016-06-13 17:28 | Progress Note ---
Medicine Progress Note Date & Time of Visit: Jun 13, 2016 at 17:15. Subjective patient states she feels ok overall today did not tolerate applesauce, but no abdominal pain, (+) BM today no dyspnea, cough, chest pain denies dysuria, fever/chills no other symptoms Objective Last 8 Hrs Date Time Temp Pulse Resp B/P Pulse Ox O2 Delivery O2 Flow Rate FiO2 06/13/16 16:12 Nasal Cannula 1.0 06/13/16 16:06 60 16 96 Nasal Cannula 2.0 06/13/16 15:07 36.9 63 16 155/72 97 Nasal Cannula 2.0 06/13/16 11:06 36.6 59 18 160/60 93 Nasal Cannula 2.0 06/13/16 11:00 Nasal Cannula 1.0 06/13/16 10:41 60 94 Physical Exam: General- oriented x 3, not in distress, speaks in sentences with no effort Head- atraumatic Eyes-anicteric ENT- oropharynx clear Neck- supple, no JVD, no adenopathy, no thyromegaly Lungs- clear to auscultation b/l Heart- normal rate, regular rhythm; no murmurs Abdomen- normal bowel sounds, soft, nontender Extremities- no pretibial edema, no calf tenderness Neuro- alert, oriented x 3; no gross focal deficits Skin- warm & dry Laboratory Results: Last 24 Hours Test 06/12/16 20:09 06/13/16 07:45 06/13/16 08:10 06/13/16 12:00 Bedside Glucose 163 mg/dl 158 mg/dl 154 mg/dl Arterial Blood pH 7.40 Arterial Blood Partial Pressure CO2 53 mmHg Arterial Blood Partial Pressure O2 64 mm/Hg Arterial Blood HCO3 32 mmol/L Arterial Blood Oxygen Saturation 90.6 % Arterial Blood Base Excess 6.0 mEq/L Arterial Blood Gas Delivery 2L Jose Alberto Test POS Test 06/13/16 16:53 06/13/16 16:58 Bedside Glucose 132 mg/dl Assessment & Plan 80 yoF with significant heart history and valve issues admitted for increased work of breathing 2/2 CHF exacerbation and copd exacerbation. CHF AND COPD EXACERBATION HYPOXEMIA, RESOLVING resolved received Lasix, Antibiotics - repeat CT chest: loculated pleural effusion on the Left - Pulm and Thoracic Surgery on board continue Spirometry, monitor closely on Prednisone, Singulair - appreciate the recommendations HIATAL HERNIA s/p status post left thoracotomy with Belsey Jose IV repair on 05/30/2016 Was in ICU following surgery and then in Tele s/p removal NG tube and chest tube removal - improving gradually continue Liquid diet til 06/19/16 Barium Swallow did show lower Esophageal narrowing likely due to post surgical edema Belching improved DECONDITIONING PT/OT daily HISTORY OF A FIB Not anticoagulated due to hx of hemorrhagic pericardial effusion and subdural hematoma s/p fall - continue Amiodarone SSS S/P PACER no acute issues HTN continue Metoprolol resume Clonidine BID monitor Nutrition Started on liquid diet and will continue till of this month Thrombocytopenia,Resolved Was placed on Lovenox post surgery HIT studies-negative Start SQ Heparin 06/09/16 MITRAL VALVE ANOMALY ECHO::ECHO:: * Sinus rhythm was present during the echocardiogram. * There is a 0.6cm x 0.6cm mobile echodensity attached to ventricular surface of the mitral valve annulus near the left ventricular outflow tract. * Calcified mitral apparatus. * The aortic valve is moderately calcified. * Mild valvular aortic stenosis. * Moderate aortic regurgitation. * The left ventricular wall motion is normal. * Ejection Fraction = 60-65%. * Grade I diastolic dysfunction, (abnormal relaxation pattern). * Compared to the most recent echocardiogram, the echodensity is unchanged. cardiology evaluated the patient stable ACUTE RENAL FAILURE RESOLVED PRP today DM hgb a1c 7.0 03/2016 oral agents on hold. - ISS GERD, HIATAL HERNIA Pantoprazole BID HYPOTHYROIDISM on levothyroxine DEPRESSION on sertraline DVT PROPHYLAXIS SCDs due to hx of hemorrhagic pericardial effusion and subdural hematoma - now on Heparin CODE STATUS DNR DISPO: social service for d/c planning Continue PT/OT Will need placement-Rehab placement Consultants: Cards Current Inpatient Medications: Current Inpatient Medications Medications (Trade) Dose Ordered Sig/Srinivas Route Start Time Stop Time Status Last Admin Dose Admin Montelukast Sodium (Singulair Tab) 10 mg HS PO 05/14/16 21:00 06/13/16 20:59 Future hold 06/12/16 20:30 10 MG Polyethylene (Miralax Powder Packet) 17 gm DAILY PO 05/16/16 09:00 06/15/16 08:59 06/13/16 08:31 17 GM Ipratropium [place] (Atrovent 0.02% 0.5MG/2.5ML Neb) 0.5 mg Q6R PRN INH 05/26/16 15:15 06/25/16 15:14 06/13/16 16:06 0.5 MG Levalbuterol (Xopenex 1.25MG/ 0.5ML Neb) 1.25 mg Q6R PRN INH 05/26/16 15:15 06/25/16 15:14 06/13/16 16:06 1.25 MG Albuterol/ Ipratropium (Duoneb) 3 ml Q2H PRN INH 06/01/16 09:30 07/01/16 09:29 06/12/16 12:55 3 ML Heparin Sodium (Porcine) (Heparin 10 Unit/ ml 5 ml Flush) 5 ml PRN PRN FLUSH 06/02/16 13:15 07/02/16 13:14 06/12/16 06:07 5 ML Hydromorphone HCl (Dilaudid Inj) 0.5 mg Q6H PRN IV 06/03/16 13:45 06/17/16 13:44 06/10/16 21:11 0.5 MG Pantoprazole Sodium (Protonix Tab) 40 mg BID PO 06/03/16 21:00 07/03/16 20:59 06/13/16 08:32 40 MG Metoprolol Tartrate (Lopressor Tab) 50 mg BID PO 06/03/16 21:00 07/03/16 20:59 06/13/16 08:31 50 MG Hydralazine HCl (HydrALAZINE INJ) 5 mg Q6 PRN IV. 06/03/16 20:15 07/03/16 20:14 Insulin Aspart (novoLOG ASPART) SLIDING SCALE G... ACHS SC 06/03/16 21:00 06/29/16 17:59 06/13/16 13:22 3 UNITS Albuterol Sulfate (Ventolin 0.083% 2.5MG/3ML Neb) 2.5 mg Q6R PRN INH 06/05/16 11:30 07/05/16 11:29 06/05/16 19:16 2.5 MG Prednisone (PredniSONE TAB) 10 mg DAILY PO 06/07/16 09:00 07/07/16 08:59 06/13/16 08:31 10 MG Heparin Sodium (Porcine) (Heparin 10 Unit/ ml 5 ml Flush) 5 ml PRN PRN FLUSH 06/08/16 11:15 07/08/16 11:14 Insulin Glargine (Lantus Solostar Pen) 7 unit DAILY SC 06/10/16 08:00 07/10/16 07:59 06/13/16 08:48 7 UNIT Heparin Sodium (Porcine) (Heparin Sq 5000 Unit/0.5ml) 5,000 unit Q8 SQ 06/09/16 22:00 07/09/16 21:59 06/13/16 13:21 5,000 UNIT Amiodarone HCl (Cordarone Tab) 200 mg QAM PO 06/13/16 08:00 07/13/16 07:59 06/13/16 08:31 200 MG Ondansetron HCl (Zofran Inj) 4 mg Q6H PRN IV 06/13/16 06:30 07/13/16 06:29 Acetaminophen (Tylenol Tab) 650 mg Q4H PRN PO 06/13/16 09:30 07/13/16 09:29
[2016-06-13] MEDS ORDERED: CLONIDINE HCL 0.1 MG TAB PO PRN (17:30)
[2016-06-13 19:05] LABS: HEMATOCRIT 27.1 % (37-47); MEAN CELL VOLUME 98.9 fL (80-100); MEAN CORPUSCULAR HEMOGLOBIN 30.3 pg (25-34); MEAN CORPUSCULAR HGB CONC 30.6 g/dl (32-36); MEAN PLATELET VOLUME 8.7 fL (7.4-10.4); PLATELET COUNT 144 K/uL (130-400); RED BLOOD COUNT 2.74 M/uL (4.2-5.4); WHITE BLOOD COUNT 9.26 K/uL (4.8-10.8)
[2016-06-13 19:24] LABS: BASO % 0.2 %; BASO ABS # 0.02 K/uL (0-0.2); COMPLETE YES; EOS % 1.3 %; LYMPH ABS # 0.74 K/uL (1.2-3.4); MONO % 6.9 %; NEUT % 77.6 %; POLYCHROMASIA 1+
[2016-06-13 19:26] LABS: BUN/CREATININE RATIO 30.7 (10-20); CALCIUM 8.3 mg/dl (8.5-10.1); CREATININE 0.83 mg/dl (0.60-1.20); POTASSIUM 3.8 mmol/L (3.5-5.1)
[2016-06-14] VITALS (9 sets, daily range): BP systolic 115–162; BP diastolic 67–80; PULSE 58–84; TEMP 36.4–37.3; O2SAT 91–98
[2016-06-14] MEDS: HEPARIN SOD 5000 UNIT/0.5 ML CARP SQ SCH ×2 (02:41→13:41)
[2016-06-14] MEDS: ALBUT/IPRATROP 3MG/0.5MG NEB 3 ML VIAL INH PRN ×2 (03:23→19:19)
[2016-06-14] MEDS: HYDROmorphone INJ 1 MG/ML SYR IV PRN (07:21)
[2016-06-14] MEDS: POLYETHYLENE (MIRALAX) 17 GM PACK PO SCH (08:34)
[2016-06-14] MEDS: METOPROLOL TARTRATE 50 MG TAB PO SCH ×2 (08:34→20:11)
[2016-06-14] MEDS: PANTOprazole SOD 40 MG TAB PO SCH ×2 (08:35→20:10)
[2016-06-14] MEDS: AMIODARONE 200 MG TAB PO SCH (08:35)
[2016-06-14] MEDS: INSULIN ASPART 100 UNITS/ML 3 ML PEN SC SCH ×4 (08:39→21:00)
[2016-06-14] MEDS: INSULIN GLARGINE SOLOSTAR 100 UNITS/ML 3 ML PEN SC SCH (08:40)
--- NOTE | 2016-06-14 13:04 | PROGRESS NOTE ---
DATE: 06/14/2016 PULMONARY PROGRESS NOTE PROBLEM LIST: Includes 1. Status post hiatal hernia repair. 2. Left pleural effusion, which is loculated: 3. Left side atelectasis. SUBJECTIVE: The patient reports that she is feeling better today. She states that her breathing is a little bit better as well. She has been using her flutter valve. She states that therapy was not delayed but she did not do anything because she was wiped out from getting cleaned out. She has no other complaints. No chest pain. No palpitations or abdominal pain. No nausea or vomiting. She has no swelling in her extremities that she is aware of. OBJECTIVE: GENERAL: The patient is an 80-year-old female lying in bed in no acute distress. She is alert and oriented x3. Mood is good. Affect is good. VITAL SIGNS: Temp 36.8, pulse 60, respirations 18, blood pressure is 137/67, pulse ox 98% on 1.5 liters. HEENT: Normocephalic, atraumatic. Pupils equal, round and reactive to light and accommodation. Extraocular movements are intact. [place] moist gingival and buccal mucosa. NECK: Supple, short, thick. No mass. No adenopathy. No bruit. CHEST: Diminished breath sounds bilaterally, but overall pretty clear. No rale or rhonchi. CARDIOVASCULAR: Regular rate and rhythm. No murmurs, gallops or rubs. ABDOMEN: Bowel sounds are present. Abdomen soft, nontender. No guarding, rigidity or organomegaly. EXTREMITIES: No erythema or edema. NEUROLOGIC: Cranial nerves II through XII are intact. The patient is slightly depressed but otherwise unremarkable. DATA: No new lab data. No new imaging data. IMPRESSION: An 80-year-old female who is status post hiatal hernia repair with some pleural effusion and left-sided atelectasis. At this time, she is doing better. Continue to strongly encourage her to use the flutter valve. She is agreeable to doing this. I also did put an order in for respiratory to do manual percussion on her. I think she would benefit from this. I do not think she would tolerate a vibration vest at this point due to her recent surgery but the manual percussion may focus on areas away from her surgical site. Otherwise, the patient is to continue meds as they are, continue a full therapy. From pulmonary standpoint, she should be able to go to rehab at any time. Will continue to follow through hospitalization.
[2016-06-14] MEDS: ONDANSETRON INJ 2 MG/ML 2 ML VIAL IV PRN (13:35)
--- NOTE | 2016-06-14 20:25 | Progress Note ---
Medicine Progress Note Date & Time of Visit: Jun 14, 2016 at 20:21. Subjective resting in bed, comfortable overall adamantly requesting diet to be advanced denies abdominal pain ,nausea no dyspnea, cough denies other symptoms Objective Last 8 Hrs Date Time Temp Pulse Resp B/P Pulse Ox O2 Delivery O2 Flow Rate FiO2 06/14/16 19:19 84 16 95 Nasal Cannula 2.0 06/14/16 16:00 Nasal Cannula 1.5 06/14/16 15:16 37.3 62 18 115/76 93 Nasal Cannula 1.5 06/14/16 14:11 95 Nasal Cannula 1.5 Physical Exam: General- oriented x 3, not in distress, speaks in sentences with no effort Eyes-anicteric ENT- oropharynx clear Neck- supple, no JVD Lungs- clear to auscultation bilaterally, no rales/wheezes Heart- normal rate, regular rhythm; no murmurs Abdomen- normal bowel sounds, soft, nontender Extremities- no pretibial edema, no calf tenderness Neuro- alert, oriented x 3; no gross focal deficits Skin- warm & dry Laboratory Results: Last 24 Hours Test 06/13/16 20:29 06/14/16 07:26 06/14/16 12:06 06/14/16 16:20 Bedside Glucose 129 mg/dl 98 mg/dl 106 mg/dl 180 mg/dl Assessment & Plan 80 yoF with significant heart history and valve issues admitted for increased work of breathing 2/2 CHF exacerbation and copd exacerbation. CHF AND COPD EXACERBATION HYPOXEMIA, RESOLVING resolved received Lasix, Antibiotics - repeat CT chest: loculated pleural effusion on the Left - Pulm and Thoracic Surgery on board continue Spirometry, monitor closely on Prednisone, Singulair - respiratory status stable overall HIATAL HERNIA s/p status post left thoracotomy with Belsey Jose IV repair on 05/30/2016 Was in ICU following surgery and then in Tele s/p removal NG tube and chest tube removal - improving gradually continue Liquid diet til 06/19/16 Barium Swallow did show lower Esophageal narrowing likely due to post surgical edema Belching improved - will order Technical Services Librarian consult DECONDITIONING PT/OT daily HISTORY OF A FIB Not anticoagulated due to hx of hemorrhagic pericardial effusion and subdural hematoma s/p fall - continue Amiodarone, Metoprolol SSS S/P PACER no acute issues HTN continue Metoprolol Clonidine PRN Nutrition Started on liquid diet and will continue till of this month Thrombocytopenia,Resolved Was placed on Lovenox post surgery HIT studies-negative Start SQ Heparin 06/09/16 MITRAL VALVE ANOMALY ECHO::ECHO:: * Sinus rhythm was present during the echocardiogram. * There is a 0.6cm x 0.6cm mobile echodensity attached to ventricular surface of the mitral valve annulus near the left ventricular outflow tract. * Calcified mitral apparatus. * The aortic valve is moderately calcified. * Mild valvular aortic stenosis. * Moderate aortic regurgitation. * The left ventricular wall motion is normal. * Ejection Fraction = 60-65%. * Grade I diastolic dysfunction, (abnormal relaxation pattern). * Compared to the most recent echocardiogram, the echodensity is unchanged. cardiology evaluated the patient stable ACUTE RENAL FAILURE RESOLVED DM hgb a1c 7.0 03/2016 oral agents on hold. - ISS GERD, HIATAL HERNIA Pantoprazole BID HYPOTHYROIDISM on levothyroxine DEPRESSION on sertraline DVT PROPHYLAXIS SCDs due to hx of hemorrhagic pericardial effusion and subdural hematoma - now on Heparin CODE STATUS DNR DISPO: social service for d/c planning Continue PT/OT Will need placement-Rehab placement Consultants: Cards Current Inpatient Medications: Current Inpatient Medications Medications (Trade) Dose Ordered Sig/Srinivas Route Start Time Stop Time Status Last Admin Dose Admin Polyethylene (Miralax Powder Packet) 17 gm DAILY PO 05/16/16 09:00 06/15/16 08:59 06/14/16 08:34 17 GM Ipratropium [place] (Atrovent 0.02% 0.5MG/2.5ML Neb) 0.5 mg Q6R PRN INH 05/26/16 15:15 06/25/16 15:14 06/13/16 16:06 0.5 MG Levalbuterol (Xopenex 1.25MG/ 0.5ML Neb) 1.25 mg Q6R PRN INH 05/26/16 15:15 06/25/16 15:14 06/13/16 16:06 1.25 MG Albuterol/ Ipratropium (Duoneb) 3 ml Q2H PRN INH 06/01/16 09:30 07/01/16 09:29 06/14/16 19:19 3 ML Heparin Sodium (Porcine) (Heparin 10 Unit/ ml 5 ml Flush) 5 ml PRN PRN FLUSH 2/3/17 13:15 07/02/16 13:14 06/14/16 07:20 5 ML Hydromorphone HCl (Dilaudid Inj) 0.5 mg Q6H PRN IV 06/03/16 13:45 06/17/16 13:44 06/14/16 07:21 0.5 MG Pantoprazole Sodium (Protonix Tab) 40 mg BID PO 06/03/16 21:00 07/03/16 20:59 06/14/16 08:35 40 MG Metoprolol Tartrate (Lopressor Tab) 50 mg BID PO 06/03/16 21:00 07/03/16 20:59 06/14/16 08:34 50 MG Hydralazine HCl (HydrALAZINE INJ) 5 mg Q6 PRN IV. 06/03/16 20:15 07/03/16 20:14 Insulin Aspart (novoLOG ASPART) SLIDING SCALE G... ACHS SC 06/03/16 21:00 06/29/16 17:59 06/14/16 17:42 1 UNITS Albuterol Sulfate (Ventolin 0.083% 2.5MG/3ML Neb) 2.5 mg Q6R PRN INH 06/05/16 11:30 07/05/16 11:29 06/05/16 19:16 2.5 MG Prednisone (PredniSONE TAB) 10 mg DAILY PO 06/07/16 09:00 07/07/16 08:59 06/14/16 08:35 10 MG Heparin Sodium (Porcine) (Heparin 10 Unit/ ml 5 ml Flush) 5 ml PRN PRN FLUSH 06/08/16 11:15 07/08/16 11:14 Insulin Glargine (Lantus Solostar Pen) 7 unit DAILY SC 06/10/16 08:00 07/10/16 07:59 06/14/16 08:40 7 UNIT Amiodarone HCl (Cordarone Tab) 200 mg QAM PO 06/13/16 08:00 07/13/16 07:59 06/14/16 08:35 200 MG Ondansetron HCl (Zofran Inj) 4 mg Q6H PRN IV 06/13/16 06:30 07/13/16 06:29 06/14/16 13:35 4 MG Acetaminophen (Tylenol Tab) 650 mg Q4H PRN PO 06/13/16 09:30 07/13/16 09:29 Heparin Sodium (Porcine) (Heparin Sq 5000 Unit/0.5ml) 5,000 unit Q12H SQ 06/14/16 02:00 07/14/16 01:59 06/14/16 13:41 5,000 UNIT Clonidine HCl (Catapres Tab) 0.1 mg Q6H PRN PO 06/13/16 17:30 07/13/16 17:29
[2016-06-15] VITALS (9 sets, daily range): BP systolic 122–151; BP diastolic 63–77; PULSE 60–106; TEMP 36.6–36.9; O2SAT 84–97
[2016-06-15] MEDS: HEPARIN SOD 5000 UNIT/0.5 ML CARP SQ SCH ×2 (02:04→12:55)
[2016-06-15 05:35] LABS: HEMATOCRIT 29.3 % (37-47); MEAN CELL VOLUME 102.4 fL (80-100); MEAN CORPUSCULAR HEMOGLOBIN 30.8 pg (25-34); PLATELET COUNT 169 K/uL (130-400); RED BLOOD COUNT 2.86 M/uL (4.2-5.4); WHITE BLOOD COUNT 9.94 K/uL (4.8-10.8)
[2016-06-15] MEDS: LEVOTHYROXINE 50 MCG TAB PO SCH (05:52)
[2016-06-15 06:09] LABS: BUN/CREATININE RATIO 27.2 (10-20); CALCIUM 8.6 mg/dl (8.5-10.1); CREATININE 0.75 mg/dl (0.60-1.20); POTASSIUM 4.3 mmol/L (3.5-5.1)
[2016-06-15 06:24] LABS: BASO ABS # 0.09 K/uL (0-0.2); BASOPHIL % 0.9 %; COMPLETE YES; EOSINOPHIL % 5.3 %; LYMPH ABS # 0.61 K/uL (1.2-3.4); LYMPHOCYTE % 6.1 %; META ABS # 0.09 K/uL (0-0); METAMYELOCYTE % 0.9 %; MYELOCYTE % 1.8 %; NEUTROPHILS % 78.9 %
[2016-06-15] MEDS: INSULIN ASPART 100 UNITS/ML 3 ML PEN SC SCH ×4 (06:30→20:35)
[2016-06-15] MEDS: INSULIN GLARGINE SOLOSTAR 100 UNITS/ML 3 ML PEN SC SCH (08:00)
[2016-06-15] MEDS: AMIODARONE 200 MG TAB PO SCH (08:06)
[2016-06-15] MEDS: PANTOprazole SOD 40 MG TAB PO SCH ×2 (08:06→20:31)
[2016-06-15] MEDS: POLYETHYLENE (MIRALAX) 17 GM PACK PO SCH (08:07)
[2016-06-15] MEDS: METOPROLOL TARTRATE 50 MG TAB PO SCH ×2 (08:07→20:31)
[2016-06-15] MEDS: ALBUT/IPRATROP 3MG/0.5MG NEB 3 ML VIAL INH PRN ×3 (08:25→16:22)
[2016-06-15] MEDS: ONDANSETRON INJ 2 MG/ML 2 ML VIAL IV PRN (08:48)
--- NOTE | 2016-06-15 10:08 | SURGERY PROGRESS NOTE ---
DATE: 06/15/2016 DATE: 06/15/2016. SUBJECTIVE: The patient complained that she "cannot eat". Upon further questioning, it is actually that she does like the food and wants solid food and is begging for macaroni. We explained to her that after this procedure, especially in her case, I would prefer to hold off on solid food; however, we will allow her to advance her diet slightly and let her have macaroni. I explained to Ms. Robledo her biggest problem is she is not participating in therapy, although she did have a better job yesterday and got out of bed and actually did some "exercises" with the therapist. Slightly decreased breath sounds on the left. Her A-a gradient has gotten a little better. She was down to 1 liter yesterday, although she is back up to 1-1/2 today. I have explained to her that she must get up and move.
--- NOTE | 2016-06-15 11:00 | PROGRESS NOTE ---
DATE: 06/15/2016 PROBLEM LIST: Includes: 1. Status post hiatal hernia repair. 2. Left pleural effusion. 3. Left-sided atelectasis. SUBJECTIVE: The patient reports that she is doing a little bit better. She states that breathing [place], she does feel to be improved. She states that respiratory therapy was in and did percussion on her last night. She feels that this was helpful. She states that she is using the flutter valve. She in not really having much in the way of coughing at this time. No chest congestion or tightness. She states that she is working with physical therapy. She states that she does not feel well today. She is a little bit nauseated. She states her stomach is upset, but otherwise no problems. She denies any other concerns or problems at this time. OBJECTIVE: GENERAL: The patient is an 80-year-old female lying in bed. She is alert and oriented x3. Mood is good. Affect is good. VITAL SIGNS: Temp 36.6, pulse 66, respiration 18, blood pressure is 130/77, pulse ox 91% to 95% on 2 liters. HEENT: Normocephalic, atraumatic. Pupils equal, round and reactive to light and accommodation. Extraocular movements are intact. [place] moist gingival and buccal mucosa. NECK: Supple, short neck. No mass. No adenopathy. No bruit. CHEST: Diminished breath sounds at the left base. Few coarse wheezes, which clear with cough. No rale or rhonchi noted. CARDIOVASCULAR: Regular rate and rhythm. No murmurs, gallops or rubs. ABDOMEN: Soft, nontender. EXTREMITIES: No erythema or edema. No cyanosis or clubbing. NEUROLOGIC: Cranial nerves II-XII are intact. No focal deficit noted. LABORATORY DATA: Shows a white count of 9000, H\T\H of 8.8 and 29.3, platelet count 169,000. No new imaging data. IMPRESSION: An 80-year-old female status post hiatal hernia repair with left-sided pleural effusion and left-sided atelectasis. She reports that she is doing the flutter valve. Respiratory therapy was in yesterday and did do percussion on her. She felt that that was helpful as well. At this point, I would recommend to continue that at least twice a day. She is to continue using flutter valve regularly. I did speak with the nurses about encouraging her. Continue prednisone. I would like to get a repeat chest x-ray just to make sure there is no change in appearance of the lung parenchyma. Will continue to follow through hospitalization.
[2016-06-15] MEDS: SUCRALFATE 1 GM/10 ML UDC PO SCH ×4 (12:00→20:00)
[2016-06-15] MEDS: ACETAMINOPHEN 325 MG TAB PO PRN (17:49)
--- NOTE | 2016-06-15 18:51 | Progress Note ---
Medicine Progress Note Date & Time of Visit: Jun 15, 2016 at 18:46. Subjective patient seen resting in bed, in better spirits tolerated macaroni, no abdominal pain/nausea no cough, dyspnea, denies other symptoms Objective Last 8 Hrs Date Time Temp Pulse Resp B/P Pulse Ox O2 Delivery O2 Flow Rate FiO2 06/15/16 16:22 69 16 94 Nasal Cannula 2.0 06/15/16 16:00 Nasal Cannula 1.5 06/15/16 14:37 36.9 106 20 122/63 95 Nasal Cannula 2.0 06/15/16 14:23 62 16 84 Nasal Cannula 1.0 06/15/16 11:01 36.7 71 20 132/68 96 Ambu-Bag 2.0 Physical Exam: General- oriented x 3, not in distress, speaks in sentences with no effort Neck- no JVD Lungs- clear breath sounds bilaterally, no rales/wheezes Heart- normal rate, regular rhythm; no murmurs Abdomen- normal bowel sounds, soft, nontender Extremities- mild pretibial edema, no calf tenderness Neuro- alert, oriented x 3; no gross focal deficits Skin- warm & dry Laboratory Results: Last 24 Hours Test 06/14/16 20:37 06/15/16 05:05 06/15/16 07:19 06/15/16 11:31 Bedside Glucose 152 mg/dl 113 mg/dl 122 mg/dl White Blood Count 9.94 K/uL Red Blood Count 2.86 M/uL Hemoglobin 8.8 g/dL Hematocrit 29.3 % Mean Corpuscular Volume 102.4 fL Mean Corpuscular Hemoglobin 30.8 pg Mean Corpuscular Hemoglobin Concent 30.0 g/dl Platelet Count 169 K/uL Mean Platelet Volume 9.0 fL RDW Standard Deviation 61.8 fL RDW Coefficient of Variation 16.6 % Nucleated RBC Absolute Count (auto) 0.15 K/uL Neutrophils % (Manual) 78.9 % Lymphocytes % (Manual) 6.1 % Monocytes % (Manual) 6.1 % Eosinophils % (Manual) 5.3 % Basophils % (Manual) 0.9 % Metamyelocytes % 0.9 % Myelocytes % 1.8 % Nucleated Red Blood Cells % 1.5 % Neutrophils # (Manual) 7.84 K/uL Total Absolute Neutrophils 7.84 K/uL Lymphocytes # (Manual) 0.61 K/uL Total Absolute Lymphocytes 0.61 K/uL Monocytes # (Manual) 0.61 K/uL Eosinophils # (Manual) 0.53 K/uL Basophils # (Manual) 0.09 K/uL Metamyelocytes # 0.09 K/uL Myelocytes # 0.18 K/uL Red Blood Cell Morphology Unremarkable Sodium Level 146 mmol/L Potassium Level 4.3 mmol/L Chloride Level 108 mmol/L Carbon Dioxide Level 31 mmol/L Anion Gap 7.0 mmol/L Blood Urea Nitrogen 20 mg/dl Creatinine 0.75 mg/dl Est Creatinine Clear Calc Drug Dose 65.3 ml/min Estimated GFR () 86.6 Estimated GFR (Non- 74.8 BUN/Creatinine Ratio 27.2 Random Glucose 99 mg/dl Calcium Level 8.6 mg/dl Test 06/15/16 16:40 Bedside Glucose 162 mg/dl Assessment & Plan 80 yoF with significant heart history and valve issues admitted for increased work of breathing 2/2 CHF exacerbation and copd exacerbation. CHF AND COPD EXACERBATION HYPOXEMIA, RESOLVING resolved received Lasix, Antibiotics - repeat CT chest: loculated pleural effusion on the Left - Pulm and Thoracic Surgery on board continue Spirometry, monitor closely on Prednisone, Singulair - respiratory status stable overall - resume Lasix at a lower dose of 20mg BID monitor HIATAL HERNIA s/p status post left thoracotomy with Belsey Jose IV repair on 05/30/2016 Was in ICU following surgery and then in Tele s/p removal NG tube and chest tube removal - improving gradually continue Liquid diet til 06/19/16 Barium Swallow did show lower Esophageal narrowing likely due to post surgical edema Belching improved -- Sucralfate added continue Full liquids til DECONDITIONING PT/OT daily HISTORY OF A FIB Not anticoagulated due to hx of hemorrhagic pericardial effusion and subdural hematoma s/p fall - continue Amiodarone, Metoprolol SSS S/P PACER no acute issues HTN continue Metoprolol Clonidine PRN Nutrition Started on liquid diet and will continue till of this month Thrombocytopenia,Resolved Was placed on Lovenox post surgery HIT studies-negative Started SQ Heparin 06/09/16 MITRAL VALVE ANOMALY ECHO::ECHO:: * Sinus rhythm was present during the echocardiogram. * There is a 0.6cm x 0.6cm mobile echodensity attached to ventricular surface of the mitral valve annulus near the left ventricular outflow tract. * Calcified mitral apparatus. * The aortic valve is moderately calcified. * Mild valvular aortic stenosis. * Moderate aortic regurgitation. * The left ventricular wall motion is normal. * Ejection Fraction = 60-65%. * Grade I diastolic dysfunction, (abnormal relaxation pattern). * Compared to the most recent echocardiogram, the echodensity is unchanged. cardiology evaluated the patient stable ACUTE RENAL FAILURE RESOLVED DM hgb a1c 7.0 03/2016 oral agents on hold. - ISS GERD, HIATAL HERNIA Pantoprazole BID HYPOTHYROIDISM on levothyroxine DEPRESSION on sertraline DVT PROPHYLAXIS SCDs due to hx of hemorrhagic pericardial effusion and subdural hematoma - now on Heparin CODE STATUS DNR DISPO: social service for d/c planning Continue PT/OT Will need placement-Rehab placement Consultants: Cards Current Inpatient Medications: Current Inpatient Medications Medications (Trade) Dose Ordered Sig/Srinivas Route Start Time Stop Time Status Last Admin Dose Admin Ipratropium [place] (Atrovent 0.02% 0.5MG/2.5ML Neb) 0.5 mg Q6R PRN INH 05/26/16 15:15 06/25/16 15:14 06/13/16 16:06 0.5 MG Levalbuterol (Xopenex 1.25MG/ 0.5ML Neb) 1.25 mg Q6R PRN INH 05/26/16 15:15 06/25/16 15:14 06/13/16 16:06 1.25 MG Albuterol/ Ipratropium (Duoneb) 3 ml Q2H PRN INH 06/01/16 09:30 07/01/16 09:29 06/15/16 16:22 3 ML Heparin Sodium (Porcine) (Heparin 10 Unit/ ml 5 ml Flush) 5 ml PRN PRN FLUSH 06/02/16 13:15 07/02/16 13:14 06/15/16 06:09 5 ML Hydromorphone HCl (Dilaudid Inj) 0.5 mg Q6H PRN IV 06/03/16 13:45 06/17/16 13:44 06/14/16 07:21 0.5 MG Pantoprazole Sodium (Protonix Tab) 40 mg BID PO 06/03/16 21:00 07/03/16 20:59 06/15/16 08:06 40 MG Metoprolol Tartrate (Lopressor Tab) 50 mg BID PO 06/03/16 21:00 07/03/16 20:59 06/15/16 08:07 50 MG Hydralazine HCl (HydrALAZINE INJ) 5 mg Q6 PRN IV. 06/03/16 20:15 07/03/16 20:14 Insulin Aspart (novoLOG ASPART) SLIDING SCALE G... ACHS SC 06/03/16 21:00 06/29/16 17:59 06/15/16 17:45 3 UNITS Albuterol Sulfate (Ventolin 0.083% 2.5MG/3ML Neb) 2.5 mg Q6R PRN INH 06/05/16 11:30 07/05/16 11:29 06/05/16 19:16 2.5 MG Prednisone (PredniSONE TAB) 10 mg DAILY PO 06/07/16 09:00 07/07/16 08:59 06/15/16 08:06 10 MG Heparin Sodium (Porcine) (Heparin 10 Unit/ ml 5 ml Flush) 5 ml PRN PRN FLUSH 06/08/16 11:15 07/08/16 11:14 Insulin Glargine (Lantus Solostar Pen) 7 unit DAILY SC 06/10/16 08:00 07/10/16 07:59 06/14/16 08:40 7 UNIT Amiodarone HCl (Cordarone Tab) 200 mg QAM PO 06/13/16 08:00 07/13/16 07:59 06/15/16 08:06 200 MG Ondansetron HCl (Zofran Inj) 4 mg Q6H PRN IV 06/13/16 06:30 07/13/16 06:29 06/15/16 08:48 4 MG Acetaminophen (Tylenol Tab) 650 mg Q4H PRN PO 06/13/16 09:30 07/13/16 09:29 06/15/16 17:49 650 MG Heparin Sodium (Porcine) (Heparin Sq 5000 Unit/0.5ml) 5,000 unit Q12H SQ 06/14/16 02:00 07/14/16 01:59 06/15/16 12:55 5,000 UNIT Clonidine HCl (Catapres Tab) 0.1 mg Q6H PRN PO 06/13/16 17:30 07/13/16 17:29 06/15/16 08:06 0.1 MG Levothyroxine Sodium (Synthroid Tab) 50 mcg DAILYBB PO 06/15/16 06:30 07/15/16 06:29 06/15/16 05:52 50 MCG Sucralfate (Carafate Susp) 1 gm QID PO 06/15/16 12:00 07/15/16 11:59
[2016-06-16] MEDS: HEPARIN SOD 5000 UNIT/0.5 ML CARP SQ SCH ×2 (02:49→13:16)
[2016-06-16 05:04] VITALS: PULSE 68; O2SAT 94
[2016-06-16] MEDS: ALBUT/IPRATROP 3MG/0.5MG NEB 3 ML VIAL INH PRN ×3 (05:04→17:07)
[2016-06-16 06:03] LABS: HEMATOCRIT 29.3 % (37-47); MEAN CELL VOLUME 101.7 fL (80-100); MEAN CORPUSCULAR HEMOGLOBIN 30.9 pg (25-34); MEAN CORPUSCULAR HGB CONC 30.4 g/dl (32-36); MEAN PLATELET VOLUME 8.9 fL (7.4-10.4); PLATELET COUNT 167 K/uL (130-400); RED BLOOD COUNT 2.88 M/uL (4.2-5.4)
[2016-06-16] MEDS: LEVOTHYROXINE 50 MCG TAB PO SCH (06:11)
[2016-06-16 06:37] LABS: BUN/CREATININE RATIO 25.8 (10-20); CALCIUM 8.5 mg/dl (8.5-10.1); CREATININE 0.84 mg/dl (0.60-1.20); POTASSIUM 4.5 mmol/L (3.5-5.1)
[2016-06-16 06:48] LABS: COMPLETE YES; EOSINOPHIL % 1.8 %; LYMPH ABS # 1.34 K/uL (1.2-3.4); LYMPHOCYTE % 10.5 %; META ABS # 0.12 K/uL (0-0); METAMYELOCYTE % 0.9 %; MYELOCYTE % 1.8 %; NEUTROPHILS % 82.4 %; POLYCHROMASIA 1+; TEAR DROP CELLS 1+
[2016-06-16 08:07] VITALS: BP 141/73; PULSE 60; TEMP 36.6; O2SAT 96
--- NOTE | 2016-06-16 08:50 | DIAGNOSTIC IMAGING REPORT ---
TWO VIEW CHEST CLINICAL HISTORY: Pleural effusion. FINDINGS: AP and lateral chest radiographs are compared to chest x-ray and chest CT dated 06/12/2016. The AP view is significant degraded by apical lordotic positioning, patient rotation, and large body habitus. A 2-lead cardiac pacemaker and a right PICC line are unchanged in position. The heart is enlarged and there is atherosclerotic calcification of the thoracic aorta. There is prominence of the central pulmonary vasculature. There are bilateral pleural effusions with bibasilar consolidation, left larger than right. This is similar appearance to the 06/12/2016 examination. There is no pneumothorax. The skeletal structures are osteopenic. Degenerative change and hyperkyphosis are noted in the thoracic spine. Cholecystectomy clips are noted in the right upper quadrant. IMPRESSION: 1. Pleural effusions, left larger than right with bibasilar consolidation. This is similar to the 06/12/2016 examination. 2. Cardiomegaly and cardiac pacemaker. There is prominence of the central pulmonary vessels. Correlate clinically for evidence of mild congestive failure. Electronically signed by: Hayes Pena M.D. 06/16/2016 8:49 AM Dictated Date/Time: 06/16/2016 8:46 AM
[2016-06-16] MEDS: SUCRALFATE 1 GM/10 ML UDC PO SCH ×5 (09:20→20:00)
[2016-06-16] MEDS: AMIODARONE 200 MG TAB PO SCH (09:20)
[2016-06-16] MEDS: METOPROLOL TARTRATE 50 MG TAB PO SCH ×2 (09:21→20:13)
[2016-06-16] MEDS: PANTOprazole SOD 40 MG TAB PO SCH ×2 (09:21→20:12)
[2016-06-16] MEDS: FUROSEMIDE 20 MG TAB PO SCH ×2 (09:21→17:26)
[2016-06-16] MEDS: INSULIN ASPART 100 UNITS/ML 3 ML PEN SC SCH ×4 (09:24→21:18)
[2016-06-16] MEDS: INSULIN GLARGINE SOLOSTAR 100 UNITS/ML 3 ML PEN SC SCH (09:25)
--- NOTE | 2016-06-16 12:24 | SURGERY PROGRESS NOTE ---
DATE: 06/16/2016 Ms. Robledo was seen today. She still is not participating like I would like in therapy. Her saturations are 96% on 2 liters. Her hemoglobin of 8.9, the platelet count is stable. Her sodium is 146. Her BUN and creatinine are down to 22 and 0.84, which is much different than she has been in the past. She tolerated macaroni very nicely. She is quite grateful to have that. I reviewed her incision and she has a couple of areas with a small amount of oozing but really her incisions look good. She does have decreased breath sounds in the left base. At this point, I have discussed this with Dr. Emanuel and I would not do anything further about this fluid. MTDD
[2016-06-16 14:07] VITALS: PULSE 68; O2SAT 94
--- NOTE | 2016-06-16 14:48 | PROGRESS NOTE ---
DATE: 06/16/2016 DATE: 06/16/2016. PROBLEM LIST: Includes: 1. Status post hiatal hernia repair. 2. Left pleural effusion. 3. Left-sided atelectasis. SUBJECTIVE: The patient continues to report some slow improvement. She is actually out of the bed and in a bedside chair today when I examined her. She feels that her breathing is slightly improved as well. She has actually been able to eat some pasta which has made her happy also. She denies any other difficulties at present. She feels that her breathing is slowly improving. She does have a little bit of cough and feels that there is a little bit of mucus present, but she has been able to cough it up and she feels that respiratory doing the hand percussion has been helpful as well. She has not had any other concerns. No chest pain, no abdominal pain, no nausea or vomiting, no change in her bowels. No difficulty voiding. No swelling in her extremities. OBJECTIVE: GENERAL: The patient is an 80-year-old female sitting at bedside. She is alert and oriented x3. Mood is good. Affect is good. VITAL SIGNS: Temperature 36.6, pulse 60, respiration 20, blood pressure is 141/73, pulse ox 96% on 2 liters. NECK: Supple. No mass, no adenopathy, no bruit. CHEST: Diminished at the left base. No rale or rhonchi noted today. CARDIOVASCULAR: Regular rate and rhythm. No appreciated murmurs, gallops or rubs. ABDOMEN: Soft, nontender. EXTREMITIES: No erythema or edema. No cyanosis or clubbing. NEUROLOGIC: Cranial nerves II through XII are grossly intact. No focal deficits noted. IMPRESSION: This is a 80-year-old female status post hiatal hernia repair with left side pleural effusion, left side atelectasis. I did discuss the case with Dr. Rosas today and at this point the main goal is to get her up moving around. The feeling is that the fluid will reabsorb and the atelectasis will improve. I would like for her to continue with the chest percussion, I feel that this is helpful for her as well. Also continue prednisone. We will continue to follow through hospitalization.
[2016-06-16 14:58] VITALS: BP 131/76; PULSE 59; TEMP 36.7; O2SAT 98
[2016-06-16 16:05] VITALS: PULSE 68; O2SAT 94
--- NOTE | 2016-06-16 17:44 | Progress Note ---
Medicine Progress Note Date & Time of Visit: Jun 16, 2016 at 17:41. Subjective patient states she feels improved today denies abdominal pain tolerating diet no dyspnea, cough no other symptoms Objective Last 8 Hrs Date Time Temp Pulse Resp B/P Pulse Ox O2 Delivery O2 Flow Rate FiO2 06/16/16 16:05 68 16 94 Nasal Cannula 2.0 06/16/16 14:58 36.7 59 20 131/76 98 Nasal Cannula 2.0 06/16/16 14:07 68 16 94 Nasal Cannula 2.0 06/16/16 11:34 Nasal Cannula 2.0 Physical Exam: General- oriented x 3, not in distress, speaks in sentences with no effort Neck- no JVD Lungs- clear breath sounds, no rales/wheeze b/l Heart- normal rate, regular rhythm; no murmurs Abdomen- normal bowel sounds, soft, nontender Extremities- mild pretibial edema, no calf tenderness Neuro- alert, oriented x 3; no gross focal deficits Skin- warm & dry Laboratory Results: Last 24 Hours Test 06/15/16 19:53 06/16/16 05:28 06/16/16 07:21 06/16/16 11:28 Bedside Glucose 178 mg/dl 173 mg/dl 238 mg/dl White Blood Count 12.80 K/uL Red Blood Count 2.88 M/uL Hemoglobin 8.9 g/dL Hematocrit 29.3 % Mean Corpuscular Volume 101.7 fL Mean Corpuscular Hemoglobin 30.9 pg Mean Corpuscular Hemoglobin Concent 30.4 g/dl Platelet Count 167 K/uL Mean Platelet Volume 8.9 fL RDW Standard Deviation 62.1 fL RDW Coefficient of Variation 17.2 % Nucleated RBC Absolute Count (auto) 0.14 K/uL Neutrophils % (Manual) 82.4 % Lymphocytes % (Manual) 10.5 % Monocytes % (Manual) 2.6 % Eosinophils % (Manual) 1.8 % Metamyelocytes % 0.9 % Myelocytes % 1.8 % Nucleated Red Blood Cells % 1.1 % Neutrophils # (Manual) 10.55 K/uL Total Absolute Neutrophils 10.55 K/uL Lymphocytes # (Manual) 1.34 K/uL Total Absolute Lymphocytes 1.34 K/uL Monocytes # (Manual) 0.33 K/uL Eosinophils # (Manual) 0.23 K/uL Metamyelocytes # 0.12 K/uL Myelocytes # 0.23 K/uL Polychromasia 1+ Tear Drop Cells 1+ Sodium Level 146 mmol/L Potassium Level 4.5 mmol/L Chloride Level 108 mmol/L Carbon Dioxide Level 30 mmol/L Anion Gap 8.0 mmol/L Blood Urea Nitrogen 22 mg/dl Creatinine 0.84 mg/dl Est Creatinine Clear Calc Drug Dose 58.3 ml/min Estimated GFR () 75.5 Estimated GFR (Non- 65.2 BUN/Creatinine Ratio 25.8 Random Glucose 151 mg/dl Calcium Level 8.5 mg/dl Test 06/16/16 16:32 Bedside Glucose 226 mg/dl Assessment & Plan 80 yoF with significant heart history and valve issues admitted for increased work of breathing 2/2 CHF exacerbation and copd exacerbation. CHF AND COPD EXACERBATION HYPOXEMIA, RESOLVING resolved received Lasix, Antibiotics - repeat CT chest: loculated pleural effusion on the Left - Pulm and Thoracic Surgery on board continue Spirometry, monitor closely on Prednisone, Singulair - respiratory status stable overall - resume Lasix at a lower dose of 20mg BID CXR: unchanged - stable overall HIATAL HERNIA s/p status post left thoracotomy with Belsey Jose IV repair on 05/30/2016 Was in ICU following surgery and then in Tele s/p removal NG tube and chest tube removal - improving gradually continue Liquid diet til 06/19/16 Barium Swallow did show lower Esophageal narrowing likely due to post surgical edema Belching improved -- Sucralfate added continue Full liquids til -- stable DECONDITIONING PT/OT daily HISTORY OF A FIB Not anticoagulated due to hx of hemorrhagic pericardial effusion and subdural hematoma s/p fall - continue Amiodarone, Metoprolol SSS S/P PACER no acute issues HTN continue Metoprolol Clonidine PRN Nutrition Started on liquid diet and will continue till 20th of this month Thrombocytopenia,Resolved Was placed on Lovenox post surgery HIT studies-negative Started SQ Heparin 06/09/16 MITRAL VALVE ANOMALY ECHO::ECHO:: * Sinus rhythm was present during the echocardiogram. * There is a 0.6cm x 0.6cm mobile echodensity attached to ventricular surface of the mitral valve annulus near the left ventricular outflow tract. * Calcified mitral apparatus. * The aortic valve is moderately calcified. * Mild valvular aortic stenosis. * Moderate aortic regurgitation. * The left ventricular wall motion is normal. * Ejection Fraction = 60-65%. * Grade I diastolic dysfunction, (abnormal relaxation pattern). * Compared to the most recent echocardiogram, the echodensity is unchanged. cardiology evaluated the patient stable ACUTE RENAL FAILURE RESOLVED DM hgb a1c 7.0 03/2016 oral agents on hold. - ISS GERD, HIATAL HERNIA Pantoprazole BID HYPOTHYROIDISM on levothyroxine DEPRESSION on sertraline DVT PROPHYLAXIS SCDs due to hx of hemorrhagic pericardial effusion and subdural hematoma - now on Heparin CODE STATUS DNR DISPO: social service for d/c planning Continue PT/OT Will need placement-Rehab placement Consultants: Cards Current Inpatient Medications: Current Inpatient Medications Medications (Trade) Dose Ordered Sig/Srinivas Route Start Time Stop Time Status Last Admin Dose Admin Ipratropium [place] (Atrovent 0.02% 0.5MG/2.5ML Neb) 0.5 mg Q6R PRN INH 05/26/16 15:15 06/25/16 15:14 06/13/16 16:06 0.5 MG Levalbuterol (Xopenex 1.25MG/ 0.5ML Neb) 1.25 mg Q6R PRN INH 05/26/16 15:15 06/25/16 15:14 06/13/16 16:06 1.25 MG Albuterol/ Ipratropium (Duoneb) 3 ml Q2H PRN INH 06/01/16 09:30 07/01/16 09:29 06/16/16 17:07 3 ML Heparin Sodium (Porcine) (Heparin 10 Unit/ ml 5 ml Flush) 5 ml PRN PRN FLUSH 06/02/16 13:15 07/02/16 13:14 06/16/16 05:58 5 ML Hydromorphone HCl (Dilaudid Inj) 0.5 mg Q6H PRN IV 06/03/16 13:45 06/17/16 13:44 06/14/16 07:21 0.5 MG Pantoprazole Sodium (Protonix Tab) 40 mg BID PO 06/03/16 21:00 07/03/16 20:59 06/16/16 09:21 40 MG Metoprolol Tartrate (Lopressor Tab) 50 mg BID PO 06/03/16 21:00 07/03/16 20:59 06/16/16 09:21 50 MG Hydralazine HCl (HydrALAZINE INJ) 5 mg Q6 PRN IV. 06/03/16 20:15 07/03/16 20:14 Insulin Aspart (novoLOG ASPART) SLIDING SCALE G... ACHS SC 06/03/16 21:00 06/29/16 17:59 06/16/16 13:16 5 UNITS Albuterol Sulfate (Ventolin 0.083% 2.5MG/3ML Neb) 2.5 mg Q6R PRN INH 06/05/16 11:30 07/05/16 11:29 06/05/16 19:16 2.5 MG Prednisone (PredniSONE TAB) 10 mg DAILY PO 06/07/16 09:00 07/07/16 08:59 06/16/16 09:21 10 MG Heparin Sodium (Porcine) (Heparin 10 Unit/ ml 5 ml Flush) 5 ml PRN PRN FLUSH 06/08/16 11:15 07/08/16 11:14 Insulin Glargine (Lantus Solostar Pen) 7 unit DAILY SC 06/10/16 08:00 07/10/16 07:59 06/16/16 09:25 7 UNIT Amiodarone HCl (Cordarone Tab) 200 mg QAM PO 06/13/16 08:00 07/13/16 07:59 06/16/16 09:20 200 MG Ondansetron HCl (Zofran Inj) 4 mg Q6H PRN IV 06/13/16 06:30 07/13/16 06:29 06/15/16 08:48 4 MG Acetaminophen (Tylenol Tab) 650 mg Q4H PRN PO 06/13/16 09:30 07/13/16 09:29 06/15/16 17:49 650 MG Heparin Sodium (Porcine) (Heparin Sq 5000 Unit/0.5ml) 5,000 unit Q12H SQ 06/14/16 02:00 07/14/16 01:59 06/16/16 13:16 5,000 UNIT Clonidine HCl (Catapres Tab) 0.1 mg Q6H PRN PO 06/13/16 17:30 07/13/16 17:29 06/15/16 08:06 0.1 MG Levothyroxine Sodium (Synthroid Tab) 50 mcg DAILYBB PO 06/15/16 06:30 07/15/16 06:29 06/16/16 06:11 50 MCG Sucralfate (Carafate Susp) 1 gm QID PO 06/15/16 12:00 07/15/16 11:59 Furosemide (Lasix Tab) 20 mg BID17 PO 06/16/16 09:00 07/16/16 08:59 06/16/16 17:26 20 MG
[2016-06-17] VITALS (9 sets, daily range): BP systolic 131–167; BP diastolic 65–87; PULSE 59–66; TEMP 36.3–37; O2SAT 94–99
[2016-06-17] MEDS: HEPARIN SOD 5000 UNIT/0.5 ML CARP SQ SCH ×2 (02:35→12:52)
[2016-06-17 05:58] LABS: HEMATOCRIT 27.4 % (37-47); MEAN CELL VOLUME 102.6 fL (80-100); MEAN CORPUSCULAR HEMOGLOBIN 31.1 pg (25-34); MEAN CORPUSCULAR HGB CONC 30.3 g/dl (32-36); MEAN PLATELET VOLUME 9.3 fL (7.4-10.4); PLATELET COUNT 145 K/uL (130-400); RED BLOOD COUNT 2.67 M/uL (4.2-5.4); WHITE BLOOD COUNT 9.73 K/uL (4.8-10.8)
[2016-06-17] MEDS: LEVOTHYROXINE 50 MCG TAB PO SCH (06:04)
[2016-06-17 06:23] LABS: BUN/CREATININE RATIO 24.7 (10-20); CALCIUM 8.2 mg/dl (8.5-10.1); CREATININE 0.87 mg/dl (0.60-1.20)
[2016-06-17 06:29] LABS: BASO ABS # 0.09 K/uL (0-0.2); BASOPHIL % 0.9 %; COMPLETE YES; EOSINOPHIL % 1.8 %; LYMPH ABS # 0.44 K/uL (1.2-3.4); LYMPHOCYTE % 4.5 %; META ABS # 0.09 K/uL (0-0); METAMYELOCYTE % 0.9 %; NEUTROPHILS % 87.4 %; POLYCHROMASIA 1+
--- NOTE | 2016-06-17 06:47 | Surgery Progress Note ---
Subjective Date of Service: Jun 17, 2016. Pt. resting in bed without SOB. Discussed with RN--pt. noted to have intermittent cough. Objective Vitals Date Time Temp Pulse Resp B/P Pulse Ox O2 Delivery O2 Flow Rate FiO2 06/17/16 00:21 36.3 61 18 143/71 99 2.0 06/17/16 00:00 Nasal Cannula 2.0 06/16/16 16:05 68 16 94 Nasal Cannula 2.0 06/16/16 16:00 Nasal Cannula 3.0 06/16/16 14:58 36.7 59 20 131/76 98 Nasal Cannula 2.0 06/16/16 14:07 68 16 94 Nasal Cannula 2.0 06/16/16 11:34 Nasal Cannula 2.0 06/16/16 08:07 36.6 60 20 141/73 96 Nasal Cannula 2.0 Physical Exam General: + well developed, + well nourished, No distress CV: + RRR Pulmonary: + pertinent finding (decreased at bases), No accessory muscle use, No respiratory distress Extremities: No calf tenderness Assessment & Plan 80 year old female with hiatal hernia -surgical repair performed (05/30/16) -post-op swallowing evaluation did not demonstrate aspiration -due to post-op reflux symptoms pt. has remained on PPI: -carafate added (06/15/16) -pt. to remain on liquids, however may have macaroni -continue mobilization OTHER -sub-q heparin is in place for DVT prevention
[2016-06-17] MEDS: SUCRALFATE 1 GM/10 ML UDC PO SCH ×4 (08:00→20:00)
[2016-06-17] MEDS: AMIODARONE 200 MG TAB PO SCH (08:11)
[2016-06-17] MEDS: METOPROLOL TARTRATE 50 MG TAB PO SCH ×2 (08:11→20:24)
[2016-06-17] MEDS: FUROSEMIDE 20 MG TAB PO SCH (08:11)
[2016-06-17] MEDS: PANTOprazole SOD 40 MG TAB PO SCH ×2 (08:11→20:25)
[2016-06-17] MEDS: ONDANSETRON INJ 2 MG/ML 2 ML VIAL IV PRN ×2 (08:12→15:51)
[2016-06-17] MEDS: ACETAMINOPHEN 325 MG TAB PO PRN (08:12)
[2016-06-17] MEDS: INSULIN GLARGINE SOLOSTAR 100 UNITS/ML 3 ML PEN SC SCH (08:13)
[2016-06-17] MEDS: INSULIN ASPART 100 UNITS/ML 3 ML PEN SC SCH ×4 (09:43→21:10)
[2016-06-17] MEDS: ALBUT/IPRATROP 3MG/0.5MG NEB 3 ML VIAL INH PRN ×3 (09:45→22:43)
--- NOTE | 2016-06-17 10:25 | Pulmonology Progress Note ---
Pulmonary Progress Note Date of Service Jun 17, 2016. Attending Hector Guadarrama Subjective Patient notes continued dyspnea on exertion sometimes at rest with intermittent productive sputum. She denies fever chills or chest pain Objective Patient able to complete full sentences due to her conversation showing no signs of accessory work of breathing. Vital signs: Reviewed and stable no acute changes Respiratory: Decreased breath sounds bilaterally. Also notably decreased effort Cardiac: S1-S2 regular rate and rhythm no murmurs rubs or gallops appreciated Skin: Notable 2+ pitting edema in gravity dependent regions, no breakdown Abdomen: Positive bowel sounds soft nontender 80y/o female initially admitted 05/13/16 for diastolic CHF 05/13/16 and treated with Levaquin, Lasix and nebulizers. 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 05/30/16: Left thoracotomy with Belsey Jose IV repair b. Post-Op A-fib started on Amiodarone c. Small post op PTX d. Post-op hypoxemia with SaO2 87% on 2L nc 7) Hx of COPD but minimal Smoking Hx a. Steroids b. Mucomyst 8) Hypoxemia: a. Treated with Steroids, Oxygen support b. Diastolic CHF support c. A-fib rate control Total I/O +14L with weight increase from 91Kgs on 05/13/16 to 101.2Kgs on CXR (06/16/16) Bilateral costo-phrenic -blunting L>>>>R CT Chest (06/22/16) bilateral pleural effusions with loculations on the left and signs of mucus on the tracheal posterior wall Esophagram (04/01/17) pooling of contrast in the distal esophagus with delayed passage Videoa Swallow (06/08/16) no Aspiration noted but continued delayed emptying Assessment & Plan 80-year-old female with prolonged hospital course and continued bilateral loculated effusions left greater than right: 1. Shortness of breath: Patient shortness of breath most likely multifactorial from deconditioning/ICU myopathy, pleural effusion and possible underlying obstructive ventilatory disease and diastolic heart failure. Agree with Dr. Grant 's previous assessment low overall risk for chronic obstructive disease but continue taper at this time trying to wean off over the next week would be most beneficial as steroids will continue myopathy. Also, we should continue to monitor the patient's ins and outs that she is currently 10 kg positive over hospital stay/14 L. Continue aggressive rehabilitation, pulmonary toilet with incentive spirometer and flutter valve. #2 pleural effusion: We are currently working with the thoracic surgery Department. Agree with previous assessments the proper fluid management and not aggressive treatment of her pleural effusions is the most beneficial therapy at this time. Data Medications: Current Inpatient Medications Medications (Trade) Dose Ordered Sig/Srinivas Route Start Time Stop Time Status Last Admin Dose Admin Ipratropium [place] (Atrovent 0.02% 0.5MG/2.5ML Neb) 0.5 mg Q6R PRN INH 05/26/16 15:15 06/25/16 15:14 06/13/16 16:06 0.5 MG Levalbuterol (Xopenex 1.25MG/ 0.5ML Neb) 1.25 mg Q6R PRN INH 05/26/16 15:15 06/25/16 15:14 06/13/16 16:06 1.25 MG Albuterol/ Ipratropium (Duoneb) 3 ml Q2H PRN INH 06/01/16 09:30 07/01/16 09:29 06/17/16 09:45 3 ML Heparin Sodium (Porcine) (Heparin 10 Unit/ ml 5 ml Flush) 5 ml PRN PRN FLUSH 06/02/16 13:15 07/02/16 13:14 06/17/16 05:52 5 ML Hydromorphone HCl (Dilaudid Inj) 0.5 mg Q6H PRN IV 06/03/16 13:45 06/17/16 13:44 06/14/16 07:21 0.5 MG Pantoprazole Sodium (Protonix Tab) 40 mg BID PO 06/03/16 21:00 07/03/16 20:59 06/17/16 08:11 40 MG Metoprolol Tartrate (Lopressor Tab) 50 mg BID PO 06/03/16 21:00 07/03/16 20:59 06/17/16 08:11 50 MG Hydralazine HCl (HydrALAZINE INJ) 5 mg Q6 PRN IV. 06/03/16 20:15 07/03/16 20:14 Insulin Aspart (novoLOG ASPART) SLIDING SCALE G... ACHS SC 06/03/16 21:00 06/29/16 17:59 06/17/16 09:43 4 UNITS Albuterol Sulfate (Ventolin 0.083% 2.5MG/3ML Neb) 2.5 mg Q6R PRN INH 06/05/16 11:30 07/05/16 11:29 06/05/16 19:16 2.5 MG Prednisone (PredniSONE TAB) 10 mg DAILY PO 06/07/16 09:00 07/07/16 08:59 06/17/16 08:11 10 MG Heparin Sodium (Porcine) (Heparin 10 Unit/ ml 5 ml Flush) 5 ml PRN PRN FLUSH 06/08/16 11:15 07/08/16 11:14 Insulin Glargine (Lantus Solostar Pen) 7 unit DAILY SC 06/10/16 08:00 07/10/16 07:59 06/17/16 08:13 7 UNIT Amiodarone HCl (Cordarone Tab) 200 mg QAM PO 06/13/16 08:00 07/13/16 07:59 06/17/16 08:11 200 MG Ondansetron HCl (Zofran Inj) 4 mg Q6H PRN IV 06/13/16 06:30 07/13/16 06:29 06/17/16 08:12 4 MG Acetaminophen (Tylenol Tab) 650 mg Q4H PRN PO 06/13/16 09:30 07/13/16 09:29 06/17/16 08:12 650 MG Heparin Sodium (Porcine) (Heparin Sq 5000 Unit/0.5ml) 5,000 unit Q12H SQ 06/14/16 02:00 07/14/16 01:59 06/17/16 02:35 5,000 UNIT Clonidine HCl (Catapres Tab) 0.1 mg Q6H PRN PO 06/13/16 17:30 07/13/16 17:29 06/15/16 08:06 0.1 MG Levothyroxine Sodium (Synthroid Tab) 50 mcg DAILYBB PO 06/15/16 06:30 07/15/16 06:29 06/17/16 06:04 50 MCG Sucralfate (Carafate Susp) 1 gm QID PO 06/15/16 12:00 07/15/16 11:59 I & O: 24-Hour Column 06/17/16 07:59 Intake Total 435 ml Balance 435 ml Vital Signs: Date Time Temp Pulse Resp B/P Pulse Ox O2 Delivery O2 Flow Rate FiO2 06/17/16 09:45 60 16 98 Nasal Cannula 2.0 06/17/16 07:01 37.0 60 18 167/65 96 1.0 06/17/16 00:21 36.3 61 18 143/71 99 2.0 06/17/16 00:00 Nasal Cannula 2.0 06/16/16 16:05 68 16 94 Nasal Cannula 2.0 06/16/16 16:00 Nasal Cannula 3.0 06/16/16 14:58 36.7 59 20 131/76 98 Nasal Cannula 2.0 06/16/16 14:07 68 16 94 Nasal Cannula 2.0 06/16/16 11:34 Nasal Cannula 2.0 Laboratory Results: Last 24 Hours Test 06/16/16 11:28 06/16/16 16:32 06/16/16 19:41 06/17/16 05:26 Bedside Glucose 238 mg/dl 226 mg/dl 198 mg/dl White Blood Count 9.73 K/uL Red Blood Count 2.67 M/uL Hemoglobin 8.3 g/dL Hematocrit 27.4 % Mean Corpuscular Volume 102.6 fL Mean Corpuscular Hemoglobin 31.1 pg Mean Corpuscular Hemoglobin Concent 30.3 g/dl Platelet Count 145 K/uL Mean Platelet Volume 9.3 fL RDW Standard Deviation 63.8 fL RDW Coefficient of Variation 17.4 % Nucleated RBC Absolute Count (auto) 0.09 K/uL Neutrophils % (Manual) 87.4 % Lymphocytes % (Manual) 4.5 % Monocytes % (Manual) 4.5 % Eosinophils % (Manual) 1.8 % Basophils % (Manual) 0.9 % Metamyelocytes % 0.9 % Nucleated Red Blood Cells % 0.9 % Neutrophils # (Manual) 8.50 K/uL Total Absolute Neutrophils 8.50 K/uL Lymphocytes # (Manual) 0.44 K/uL Total Absolute Lymphocytes 0.44 K/uL Monocytes # (Manual) 0.44 K/uL Eosinophils # (Manual) 0.18 K/uL Basophils # (Manual) 0.09 K/uL Metamyelocytes # 0.09 K/uL Polychromasia 1+ Basophilic Stippling 1+ Sodium Level 148 mmol/L Potassium Level 4.0 mmol/L Chloride Level 108 mmol/L Carbon Dioxide Level 34 mmol/L Anion Gap 6.0 mmol/L Blood Urea Nitrogen 22 mg/dl Creatinine 0.87 mg/dl Est Creatinine Clear Calc Drug Dose 56.5 ml/min Estimated GFR () 72.4 Estimated GFR (Non- 62.5 BUN/Creatinine Ratio 24.7 Random Glucose 164 mg/dl Calcium Level 8.2 mg/dl Test 06/17/16 07:37 Bedside Glucose 199 mg/dl
[2016-06-17] MEDS ORDERED: TAP WATER ENEMA PR ONE (16:00)
[2016-06-17] MEDS: TRAMADOL HCL 50 MG TAB PO PRN (18:30)
--- NOTE | 2016-06-17 19:20 | Progress Note ---
Medicine Progress Note Date & Time of Visit: Jun 17, 2016 at 19:12. Subjective patient seen having dinner states she is having some nausea today denies dyspnea, chest pain no other symptoms Objective Last 8 Hrs Date Time Temp Pulse Resp B/P Pulse Ox O2 Delivery O2 Flow Rate FiO2 06/17/16 16:42 36.6 59 16 162/70 94 Nasal Cannula 2.0 06/17/16 16:23 64 16 98 Nasal Cannula 2.0 06/17/16 16:05 Nasal Cannula 2.0 06/17/16 14:14 2.0 Physical Exam: General- oriented x 3, not in distress, speaks in sentences with no effort Neck- no JVD Lungs- clear breath sounds, no rales/wheeze b/l Heart- normal rate, regular rhythm; no murmurs Abdomen- normal bowel sounds, soft, nontender Extremities- grade 1 pretibial edema, (+) upper extremity edema, no calf tenderness Neuro- alert, oriented x 3; no gross focal deficits Skin- warm & dry Laboratory Results: Last 24 Hours Test 06/16/16 19:41 06/17/16 05:26 06/17/16 07:37 06/17/16 11:35 Bedside Glucose 198 mg/dl 199 mg/dl 158 mg/dl White Blood Count 9.73 K/uL Red Blood Count 2.67 M/uL Hemoglobin 8.3 g/dL Hematocrit 27.4 % Mean Corpuscular Volume 102.6 fL Mean Corpuscular Hemoglobin 31.1 pg Mean Corpuscular Hemoglobin Concent 30.3 g/dl Platelet Count 145 K/uL Mean Platelet Volume 9.3 fL RDW Standard Deviation 63.8 fL RDW Coefficient of Variation 17.4 % Nucleated RBC Absolute Count (auto) 0.09 K/uL Neutrophils % (Manual) 87.4 % Lymphocytes % (Manual) 4.5 % Monocytes % (Manual) 4.5 % Eosinophils % (Manual) 1.8 % Basophils % (Manual) 0.9 % Metamyelocytes % 0.9 % Nucleated Red Blood Cells % 0.9 % Neutrophils # (Manual) 8.50 K/uL Total Absolute Neutrophils 8.50 K/uL Lymphocytes # (Manual) 0.44 K/uL Total Absolute Lymphocytes 0.44 K/uL Monocytes # (Manual) 0.44 K/uL Eosinophils # (Manual) 0.18 K/uL Basophils # (Manual) 0.09 K/uL Metamyelocytes # 0.09 K/uL Polychromasia 1+ Basophilic Stippling 1+ Sodium Level 148 mmol/L Potassium Level 4.0 mmol/L Chloride Level 108 mmol/L Carbon Dioxide Level 34 mmol/L Anion Gap 6.0 mmol/L Blood Urea Nitrogen 22 mg/dl Creatinine 0.87 mg/dl Est Creatinine Clear Calc Drug Dose 56.5 ml/min Estimated GFR () 72.4 Estimated GFR (Non- 62.5 BUN/Creatinine Ratio 24.7 Random Glucose 164 mg/dl Calcium Level 8.2 mg/dl Test 06/17/16 16:45 06/17/16 18:57 Bedside Glucose 167 mg/dl Assessment & Plan 80 yoF with significant heart history and valve issues admitted for increased work of breathing 2/2 CHF exacerbation and copd exacerbation. CHF AND COPD EXACERBATION HYPOXEMIA, RESOLVING resolved received Lasix, Antibiotics - repeat CT chest: loculated pleural effusion on the Left - Pulm and Thoracic Surgery on board continue Spirometry, monitor closely on Prednisone, Singulair - respiratory status remains stable - resumed Lasix at a lower dose of 20mg BID--> hold for hypernatremia CXR: unchanged - stable overall HIATAL HERNIA s/p status post left thoracotomy with Belsey Jose IV repair on 05/30/2016 Was in ICU following surgery and then in Tele s/p removal NG tube and chest tube removal - improving gradually continue Liquid diet til 06/19/16 Barium Swallow did show lower Esophageal narrowing likely due to post surgical edema Belching improved -- Sucralfate added continue Full liquids til patient would still insist on having macaroni monitor DECONDITIONING PT/OT daily HISTORY OF A FIB Not anticoagulated due to hx of hemorrhagic pericardial effusion and subdural hematoma s/p fall - continue Amiodarone, Metoprolol SSS S/P PACER no acute issues HTN continue Metoprolol resume Clonidine 0.1mg Nutrition Started on liquid diet and will continue till of this month Thrombocytopenia,Resolved Was placed on Lovenox post surgery HIT studies-negative Started SQ Heparin 06/09/16 MITRAL VALVE ANOMALY ECHO::ECHO:: * Sinus rhythm was present during the echocardiogram. * There is a 0.6cm x 0.6cm mobile echodensity attached to ventricular surface of the mitral valve annulus near the left ventricular outflow tract. * Calcified mitral apparatus. * The aortic valve is moderately calcified. * Mild valvular aortic stenosis. * Moderate aortic regurgitation. * The left ventricular wall motion is normal. * Ejection Fraction = 60-65%. * Grade I diastolic dysfunction, (abnormal relaxation pattern). * Compared to the most recent echocardiogram, the echodensity is unchanged. cardiology evaluated the patient stable ACUTE RENAL FAILURE RESOLVED DM hgb a1c 7.0 03/2016 oral agents on hold. - ISS GERD, HIATAL HERNIA Pantoprazole BID HYPOTHYROIDISM on levothyroxine DEPRESSION on sertraline DVT PROPHYLAXIS SCDs due to hx of hemorrhagic pericardial effusion and subdural hematoma - now on Heparin CODE STATUS DNR DISPO: social service for d/c planning Continue PT/OT Will need placement-Rehab placement Consultants: Cards Current Inpatient Medications: Current Inpatient Medications Medications (Trade) Dose Ordered Sig/Srinivas Route Start Time Stop Time Status Last Admin Dose Admin Ipratropium [place] (Atrovent 0.02% 0.5MG/2.5ML Neb) 0.5 mg Q6R PRN INH 05/26/16 15:15 06/25/16 15:14 06/13/16 16:06 0.5 MG Levalbuterol (Xopenex 1.25MG/ 0.5ML Neb) 1.25 mg Q6R PRN INH 05/26/16 15:15 06/25/16 15:14 06/13/16 16:06 1.25 MG Albuterol/ Ipratropium (Duoneb) 3 ml Q2H PRN INH 06/01/16 09:30 07/01/16 09:29 06/17/16 16:23 3 ML Heparin Sodium (Porcine) (Heparin 10 Unit/ ml 5 ml Flush) 5 ml PRN PRN FLUSH 06/02/16 13:15 07/02/16 13:14 06/17/16 18:57 5 ML Pantoprazole Sodium (Protonix Tab) 40 mg BID PO 06/03/16 21:00 07/03/16 20:59 06/17/16 08:11 40 MG Metoprolol Tartrate (Lopressor Tab) 50 mg BID PO 06/03/16 21:00 07/03/16 20:59 06/17/16 08:11 50 MG Hydralazine HCl (HydrALAZINE INJ) 5 mg Q6 PRN IV. 06/03/16 20:15 07/03/16 20:14 Insulin Aspart (novoLOG ASPART) SLIDING SCALE G... ACHS SC 06/03/16 21:00 06/29/16 17:59 06/17/16 18:06 2 UNITS Albuterol Sulfate (Ventolin 0.083% 2.5MG/3ML Neb) 2.5 mg Q6R PRN INH 06/05/16 11:30 07/05/16 11:29 06/05/16 19:16 2.5 MG Prednisone (PredniSONE TAB) 10 mg DAILY PO 06/07/16 09:00 07/07/16 08:59 06/17/16 08:11 10 MG Heparin Sodium (Porcine) (Heparin 10 Unit/ ml 5 ml Flush) 5 ml PRN PRN FLUSH 06/08/16 11:15 07/08/16 11:14 Insulin Glargine (Lantus Solostar Pen) 7 unit DAILY SC 06/10/16 08:00 07/10/16 07:59 06/17/16 08:13 7 UNIT Amiodarone HCl (Cordarone Tab) 200 mg QAM PO 06/13/16 08:00 07/13/16 07:59 06/17/16 08:11 200 MG Ondansetron HCl (Zofran Inj) 4 mg Q6H PRN IV 06/13/16 06:30 07/13/16 06:29 06/17/16 15:51 4 MG Acetaminophen (Tylenol Tab) 650 mg Q4H PRN PO 06/13/16 09:30 07/13/16 09:29 06/17/16 08:12 650 MG Heparin Sodium (Porcine) (Heparin Sq 5000 Unit/0.5ml) 5,000 unit Q12H SQ 06/14/16 02:00 07/14/16 01:59 06/17/16 12:52 5,000 UNIT Clonidine HCl (Catapres Tab) 0.1 mg Q6H PRN PO 06/13/16 17:30 07/13/16 17:29 06/15/16 08:06 0.1 MG Levothyroxine Sodium (Synthroid Tab) 50 mcg DAILYBB PO 06/15/16 06:30 07/15/16 06:29 2/18/17 06:04 50 MCG Sucralfate (Carafate Susp) 1 gm QID PO 06/15/16 12:00 07/15/16 11:59 Tramadol HCl (Ultram Tab) 50 mg Q6H PRN PO 06/17/16 18:15 07/17/16 18:14 06/17/16 18:30 50 MG
[2016-06-17 19:28] LABS: BUN/CREATININE RATIO 24.4 (10-20); CALCIUM 8.3 mg/dl (8.5-10.1); CREATININE 0.84 mg/dl (0.60-1.20)
[2016-06-17] MEDS: CLONIDINE HCL 0.1 MG TAB PO SCH (21:59)
[2016-06-18] VITALS (10 sets, daily range): BP systolic 109–146; BP diastolic 63–80; PULSE 60–74; TEMP 36.6–37.5; O2SAT 94–100
[2016-06-18] MEDS: HEPARIN SOD 5000 UNIT/0.5 ML CARP SQ SCH ×2 (02:08→14:20)
[2016-06-18 06:15] LABS: BASO % 0.2 %; BASO ABS # 0.02 K/uL (0-0.2); EOS % 2.3 %; HEMATOCRIT 26.2 % (37-47); IG% 3.5 %; LYMPH % 11.1 %; LYMPH ABS # 0.95 K/uL (1.2-3.4); MEAN CELL VOLUME 100.8 fL (80-100); MEAN CORPUSCULAR HEMOGLOBIN 30.8 pg (25-34); MEAN CORPUSCULAR HGB CONC 30.5 g/dl (32-36); MEAN PLATELET VOLUME 9.3 fL (7.4-10.4); MONO % 8.1 %; NEUT % 74.8 %; PLATELET COUNT 135 K/uL (130-400); WHITE BLOOD COUNT 8.56 K/uL (4.8-10.8)
[2016-06-18] MEDS: LEVOTHYROXINE 50 MCG TAB PO SCH (06:24)
[2016-06-18 06:39] LABS: ANISOCYTOSIS PRESENT; COMPLETE YES; POLYCHROMASIA 1+
[2016-06-18 06:58] LABS: BUN/CREATININE RATIO 25.3 (10-20); CALCIUM 8.4 mg/dl (8.5-10.1); CREATININE 0.76 mg/dl (0.60-1.20)
--- NOTE | 2016-06-18 07:19 | Surgery Progress Note ---
Subjective Date of Service: Jun 18, 2016. Pt. denies SOB. Discussed with RN--pt. has not been participating with therapy or walking very much. Objective Vitals Date Time Temp Pulse Resp B/P Pulse Ox O2 Delivery O2 Flow Rate FiO2 06/18/16 07:07 36.8 60 18 146/64 99 2.0 06/18/16 00:00 Nasal Cannula 2.0 06/17/16 23:26 36.6 60 18 160/69 99 2.0 06/17/16 21:59 64 142/69 06/17/16 20:23 66 131/87 06/17/16 19:35 65 16 96 Nasal Cannula 2.0 06/17/16 16:42 36.6 59 16 162/70 94 Nasal Cannula 2.0 06/17/16 16:23 64 16 98 Nasal Cannula 2.0 06/17/16 16:05 Nasal Cannula 2.0 06/17/16 14:14 2.0 06/17/16 09:45 60 16 98 Nasal Cannula 2.0 Physical Exam General: + well developed, + well nourished, No distress CV: + RRR Pulmonary: + pertinent finding (decreased at left base), No accessory muscle use, No respiratory distress Extremities: No calf tenderness Assessment & Plan 80 year old female with hiatal hernia -surgical repair performed (05/30/16) -post-op swallowing evaluation did not demonstrate aspiration -due to post-op reflux symptoms pt. has remained on PPI: -carafate added (06/15/16) -pt. to remain on liquids, however may have macaroni -continue mobilization; -discussed with pt. the importance of mobilization OTHER -sub-q heparin is in place for DVT prevention
[2016-06-18] MEDS: SUCRALFATE 1 GM/10 ML UDC PO SCH ×5 (08:00→19:31)
[2016-06-18] MEDS: AMIODARONE 200 MG TAB PO SCH (08:04)
[2016-06-18] MEDS: CLONIDINE HCL 0.1 MG TAB PO SCH ×2 (08:04→19:30)
[2016-06-18] MEDS: PANTOprazole SOD 40 MG TAB PO SCH ×2 (08:05→19:30)
[2016-06-18] MEDS: METOPROLOL TARTRATE 50 MG TAB PO SCH ×2 (08:05→19:30)
[2016-06-18] MEDS: INSULIN GLARGINE SOLOSTAR 100 UNITS/ML 3 ML PEN SC SCH (08:06)
[2016-06-18] MEDS: INSULIN ASPART 100 UNITS/ML 3 ML PEN SC SCH ×4 (08:51→21:45)
[2016-06-18] MEDS: ALBUT/IPRATROP 3MG/0.5MG NEB 3 ML VIAL INH PRN ×3 (11:48→21:46)
--- NOTE | 2016-06-18 12:06 | Cardiology Follow-Up ---
Subjective General Date of Service: Jun 18, 2016. Chief Complaint: edema Pt evaluation today including: conversation w/ patient, physical exam History of Present Illness The patient is a 80 year old female seen in follow up. She notes no shortness of breath. Her belching/ dyspepsia has resolved post hiatal hernia repair. She does note progressive upper and lower extremity edema. Allergies Coded Allergies: Penicillins (Verified Allergy, Mild, rash, 05/13/16) Morphine (Verified Allergy, Unknown, UNKNOWN, 05/13/16) GAMALIEL Inhibitors (Verified Adverse Reaction, Intermediate, HYPERKALEMIA, 06/01) Angiotensin Receptor Blockers (Verified Adverse Reaction, Intermediate, HYPERKALEMIA, 06/01/16) Codeine (Verified Adverse Reaction, Unknown, MAKES ME HIGH, 05/13/16) Social History Smoking Status: Never Smoker Hx Tobacco Use In Past Year?: No Hx Alcohol Use - Type And Amou: No Hx Substance Use - Type And Am: No Problem List Medical Problems: (1) Abdominal pain Status: Acute (2) Chest pain Status: Acute (3) CHF (congestive heart failure) Status: Acute (4) Chronic obstructive pulmonary disease Status: Acute (5) Constipation Status: Acute (6) Cough Status: Acute (7) Hypoxia Status: Acute (8) Left sided chest pain Status: Acute (9) Pneumonia Status: Acute (10) Shortness of breath Status: Acute (11) Symptomatic bradycardia Status: Acute (12) Traumatic intracranial hemorrhage Status: Acute Physical Exam Vital Signs Last Vital Signs Documentation Date Time Temp Pulse Resp B/P Pulse Ox O2 Delivery O2 Flow Rate FiO2 06/18/16 11:20 72 18 94 Nasal Cannula 2.0 06/18/16 07:07 36.8 146/64 06/05/16 14:15 35 Physical Exam Constitutional: General Apperance: overweight Level of Distress: acutely ill, chronically ill Psychiatric: Orientation: to time, to place, to person Head: normocephalic Eyes: Pupils: PERRLA Neck: supple Lungs: Auscultation: no wheezing, no rales/crackles Cardiovascular: Heart Auscultation: RRR, normal S1, normal S2, II/ SAMANTHA Abdomen: Bowel Sounds: normal Inspection & Palpation: soft, no tenderness, guarding & rebound Extremities: pertinent finding (1+ upper , lower extremity edema ) Neurologic: Gait & Station: pertinent finding (No focal motor deficit) Cranial Nerves: grossly intact Assessment and Plan Assessment and Plan ASSESSMENT: 1. Post op, complex hiatal hernia repair. 2. PAF, in SR on exam today, has PPM for tachy/ oumar syndrome, not on anticoagulation due to past hemopericardium , and fall risk with past head trauma 3. s/p respiratory distress several days ago, resolved. 4. h/o diastolic HF, now with edema (06/18/16) new compared to last visit 5. severe MAC, with mobile calcified echodensity on MV annulus adjacent to the LV outflow tract, possible calcified ruptured chord or healed vegetation. Plan: Pt has been off of furosemide due to hypernatremia. Perhaps IV albumin would help mobilize fluid, discussed with Dr Emanuel. Laboratory Results Last 24 Hours Test 06/17/16 16:45 06/17/16 18:57 06/17/16 19:57 06/18/16 05:39 Bedside Glucose 167 mg/dl 192 mg/dl Sodium Level 147 mmol/L 147 mmol/L Potassium Level 4.0 mmol/L 4.0 mmol/L Chloride Level 107 mmol/L 107 mmol/L Carbon Dioxide Level 34 mmol/L 34 mmol/L Anion Gap 6.0 mmol/L 6.0 mmol/L Blood Urea Nitrogen 20 mg/dl 19 mg/dl Creatinine 0.84 mg/dl 0.76 mg/dl Est Creatinine Clear Calc Drug Dose 58.5 ml/min 64.3 ml/min Estimated GFR () 75.5 85.3 Estimated GFR (Non- 65.2 73.6 BUN/Creatinine Ratio 24.4 25.3 Random Glucose 175 mg/dl 158 mg/dl Calcium Level 8.3 mg/dl 8.4 mg/dl White Blood Count 8.56 K/uL Red Blood Count 2.60 M/uL Hemoglobin 8.0 g/dL Hematocrit 26.2 % Mean Corpuscular Volume 100.8 fL Mean Corpuscular Hemoglobin 30.8 pg Mean Corpuscular Hemoglobin Concent 30.5 g/dl Platelet Count 135 K/uL Mean Platelet Volume 9.3 fL Neutrophils (%) (Auto) 74.8 % Lymphocytes (%) (Auto) 11.1 % Monocytes (%) (Auto) 8.1 % Eosinophils (%) (Auto) 2.3 % Basophils (%) (Auto) 0.2 % Neutrophils # (Auto) 6.40 K/uL Lymphocytes # (Auto) 0.95 K/uL Monocytes # (Auto) 0.69 K/uL Eosinophils # (Auto) 0.20 K/uL Basophils # (Auto) 0.02 K/uL RDW Standard Deviation 62.7 fL RDW Coefficient of Variation 17.5 % Immature Granulocyte % (Auto) 3.5 % Immature Granulocyte # (Auto) 0.30 K/uL Nucleated RBC Absolute Count (auto) 0.05 K/uL Nucleated Red Blood Cells % 0.5 % Polychromasia 1+ Basophilic Stippling 1+ Anisocytosis PRESENT Test 06/18/16 07:41 06/18/16 11:24 Bedside Glucose 188 mg/dl 157 mg/dl
--- NOTE | 2016-06-18 13:36 | Progress Note ---
Medicine Progress Note Date & Time of Visit: Jun 18, 2016 at 13:34. Subjective sitting up in bed, reading appears comfortable denies nausea, abdominal pain no dyspnea arm and legs are swollen Objective Last 8 Hrs Date Time Temp Pulse Resp B/P Pulse Ox O2 Delivery O2 Flow Rate FiO2 06/18/16 11:20 72 18 94 Nasal Cannula 2.0 06/18/16 11:08 Nasal Cannula 2.0 06/18/16 07:07 36.8 60 18 146/64 99 2.0 Physical Exam: General- oriented x 3, not in distress, speaks in sentences with no effort Neck- no JVD Lungs- clear breath sounds, no rales/wheeze bilaterally Heart- normal rate, regular rhythm; no murmurs Abdomen- normal bowel sounds, soft, nontender Extremities- grade \1-2 pretibial edema, (+) upper extremity edema, no calf tenderness Neuro- alert, oriented x 3; no gross focal deficits Skin- warm & dry Laboratory Results: Last 24 Hours Test 06/17/16 16:45 06/17/16 18:57 06/17/16 19:57 06/18/16 05:39 Bedside Glucose 167 mg/dl 192 mg/dl Sodium Level 147 mmol/L 147 mmol/L Potassium Level 4.0 mmol/L 4.0 mmol/L Chloride Level 107 mmol/L 107 mmol/L Carbon Dioxide Level 34 mmol/L 34 mmol/L Anion Gap 6.0 mmol/L 6.0 mmol/L Blood Urea Nitrogen 20 mg/dl 19 mg/dl Creatinine 0.84 mg/dl 0.76 mg/dl Est Creatinine Clear Calc Drug Dose 58.5 ml/min 64.3 ml/min Estimated GFR () 75.5 85.3 Estimated GFR (Non- 65.2 73.6 BUN/Creatinine Ratio 24.4 25.3 Random Glucose 175 mg/dl 158 mg/dl Calcium Level 8.3 mg/dl 8.4 mg/dl White Blood Count 8.56 K/uL Red Blood Count 2.60 M/uL Hemoglobin 8.0 g/dL Hematocrit 26.2 % Mean Corpuscular Volume 100.8 fL Mean Corpuscular Hemoglobin 30.8 pg Mean Corpuscular Hemoglobin Concent 30.5 g/dl Platelet Count 135 K/uL Mean Platelet Volume 9.3 fL Neutrophils (%) (Auto) 74.8 % Lymphocytes (%) (Auto) 11.1 % Monocytes (%) (Auto) 8.1 % Eosinophils (%) (Auto) 2.3 % Basophils (%) (Auto) 0.2 % Neutrophils # (Auto) 6.40 K/uL Lymphocytes # (Auto) 0.95 K/uL Monocytes # (Auto) 0.69 K/uL Eosinophils # (Auto) 0.20 K/uL Basophils # (Auto) 0.02 K/uL RDW Standard Deviation 62.7 fL RDW Coefficient of Variation 17.5 % Immature Granulocyte % (Auto) 3.5 % Immature Granulocyte # (Auto) 0.30 K/uL Nucleated RBC Absolute Count (auto) 0.05 K/uL Nucleated Red Blood Cells % 0.5 % Polychromasia 1+ Basophilic Stippling 1+ Anisocytosis PRESENT Test 06/18/16 07:41 06/18/16 11:24 Bedside Glucose 188 mg/dl 157 mg/dl Assessment & Plan 80 yoF with significant heart history and valve issues admitted for increased work of breathing 2/2 CHF exacerbation and copd exacerbation. CHF AND COPD EXACERBATION HYPOXEMIA, RESOLVING resolved received Lasix, Antibiotics - repeat CT chest: loculated pleural effusion on the Left - Pulm and Thoracic Surgery on board continue Spirometry, monitor closely on Prednisone, Singulair - respiratory status remains stable - resumed Lasix at a lower dose of 20mg BID--> held for hypernatremia CXR: unchanged -- discussed with Dr. Sprague will start Lasix + Albumin trial monitor I&O HIATAL HERNIA s/p status post left thoracotomy with Belsey Jose IV repair on 05/30/2016 Was in ICU following surgery and then in Tele s/p removal NG tube and chest tube removal - improving gradually continue Liquid diet til 06/19/16 Barium Swallow did show lower Esophageal narrowing likely due to post surgical edema Belching improved -- Sucralfate added continue Full liquids til patient would still insist on having macaroni monitor DECONDITIONING PT/OT daily HISTORY OF A FIB Not anticoagulated due to hx of hemorrhagic pericardial effusion and subdural hematoma s/p fall - continue Amiodarone, Metoprolol SSS S/P PACER no acute issues HTN continue Metoprolol resumed Clonidine 0.1mg improving Nutrition Started on liquid diet and will continue till of this month Thrombocytopenia, Resolved Was placed on Lovenox post surgery HIT studies-negative Started SQ Heparin 06/09/16 MITRAL VALVE ANOMALY ECHO::ECHO:: * Sinus rhythm was present during the echocardiogram. * There is a 0.6cm x 0.6cm mobile echodensity attached to ventricular surface of the mitral valve annulus near the left ventricular outflow tract. * Calcified mitral apparatus. * The aortic valve is moderately calcified. * Mild valvular aortic stenosis. * Moderate aortic regurgitation. * The left ventricular wall motion is normal. * Ejection Fraction = 60-65%. * Grade I diastolic dysfunction, (abnormal relaxation pattern). * Compared to the most recent echocardiogram, the echodensity is unchanged. cardiology evaluated the patient stable ACUTE RENAL FAILURE RESOLVED DM hgb a1c 7.0 03/2016 oral agents on hold. - ISS GERD, HIATAL HERNIA Pantoprazole BID HYPOTHYROIDISM on levothyroxine DEPRESSION on sertraline DVT PROPHYLAXIS SCDs due to hx of hemorrhagic pericardial effusion and subdural hematoma - now on Heparin CODE STATUS DNR DISPO: social service for d/c planning Continue PT/OT Will need placement-Rehab placement Consultants: Cards Current Inpatient Medications: Current Inpatient Medications Medications (Trade) Dose Ordered Sig/Srinivas Route Start Time Stop Time Status Last Admin Dose Admin Ipratropium [place] (Atrovent 0.02% 0.5MG/2.5ML Neb) 0.5 mg Q6R PRN INH 05/26/16 15:15 06/25/16 15:14 06/13/16 16:06 0.5 MG Levalbuterol (Xopenex 1.25MG/ 0.5ML Neb) 1.25 mg Q6R PRN INH 05/26/16 15:15 06/25/16 15:14 06/13/16 16:06 1.25 MG Albuterol/ Ipratropium (Duoneb) 3 ml Q2H PRN INH 06/01/16 09:30 07/01/16 09:29 06/18/16 11:48 3 ML Heparin Sodium (Porcine) (Heparin 10 Unit/ ml 5 ml Flush) 5 ml PRN PRN FLUSH 06/02/16 13:15 07/02/16 13:14 06/18/16 06:36 5 ML Pantoprazole Sodium (Protonix Tab) 40 mg BID PO 06/03/16 21:00 07/03/16 20:59 06/18/16 08:05 40 MG Metoprolol Tartrate (Lopressor Tab) 50 mg BID PO 06/03/16 21:00 07/03/16 20:59 06/18/16 08:05 50 MG Hydralazine HCl (HydrALAZINE INJ) 5 mg Q6 PRN IV. 06/03/16 20:15 07/03/16 20:14 Insulin Aspart (novoLOG ASPART) SLIDING SCALE G... ACHS SC 06/03/16 21:00 06/29/16 17:59 06/18/16 12:18 2 UNITS Albuterol Sulfate (Ventolin 0.083% 2.5MG/3ML Neb) 2.5 mg Q6R PRN INH 06/05/16 11:30 07/05/16 11:29 06/05/16 19:16 2.5 MG Prednisone (PredniSONE TAB) 10 mg DAILY PO 06/07/16 09:00 07/07/16 08:59 06/18/16 08:05 10 MG Heparin Sodium (Porcine) (Heparin 10 Unit/ ml 5 ml Flush) 5 ml PRN PRN FLUSH 06/08/16 11:15 07/08/16 11:14 Insulin Glargine (Lantus Solostar Pen) 7 unit DAILY SC 06/10/16 08:00 07/10/16 07:59 06/18/16 08:06 7 UNIT Amiodarone HCl (Cordarone Tab) 200 mg QAM PO 06/13/16 08:00 07/13/16 07:59 06/18/16 08:04 200 MG Ondansetron HCl (Zofran Inj) 4 mg Q6H PRN IV 06/13/16 06:30 07/13/16 06:29 06/17/16 15:51 4 MG Acetaminophen (Tylenol Tab) 650 mg Q4H PRN PO 06/13/16 09:30 07/13/16 09:29 06/17/16 08:12 650 MG Heparin Sodium (Porcine) (Heparin Sq 5000 Unit/0.5ml) 5,000 unit Q12H SQ 06/14/16 02:00 07/14/16 01:59 06/18/16 02:08 5,000 UNIT Clonidine HCl (Catapres Tab) 0.1 mg Q6H PRN PO 06/13/16 17:30 07/13/16 17:29 06/15/16 08:06 0.1 MG Levothyroxine Sodium (Synthroid Tab) 50 mcg DAILYBB PO 06/15/16 06:30 07/15/16 06:29 06/18/16 06:24 50 MCG Sucralfate (Carafate Susp) 1 gm QID PO 06/15/16 12:00 07/15/16 11:59 Tramadol HCl (Ultram Tab) 50 mg Q6H PRN PO 06/17/16 18:15 07/17/16 18:14 06/17/16 18:30 50 MG Clonidine HCl 0.1 mg 0.1 mg BID PO 06/17/16 22:00 07/17/16 21:59 06/18/16 08:04 0.1 MG Furosemide/ Albumin Human (Lasix Inj/ Albumin 25%) 54 ml @ 54 mls/hr ONE ONCE IV 06/18/16 13:30 06/18/16 14:29 UNV
[2016-06-18] MEDS ORDERED: ALBUMIN 25% 50 ML with FUROSEMIDE INJ 40 MG IV ONE ×2 (14:30)
[2016-06-19] VITALS (8 sets, daily range): BP systolic 127–147; BP diastolic 69–73; PULSE 58–68; TEMP 36.6–37; O2SAT 92–99
[2016-06-19] MEDS: HEPARIN SOD 5000 UNIT/0.5 ML CARP SQ SCH ×2 (01:45→13:08)
[2016-06-19] MEDS: ALBUT/IPRATROP 3MG/0.5MG NEB 3 ML VIAL INH PRN ×3 (01:50→21:03)
[2016-06-19] MEDS: LEVOTHYROXINE 50 MCG TAB PO SCH (06:17)
[2016-06-19 06:22] LABS: BASO % 0.5 %; BASO ABS # 0.04 K/uL (0-0.2); HEMATOCRIT 25.9 % (37-47); LYMPH % 11.1 %; LYMPH ABS # 0.85 K/uL (1.2-3.4); MEAN CELL VOLUME 102.4 fL (80-100); MEAN CORPUSCULAR HEMOGLOBIN 30.8 pg (25-34); MEAN CORPUSCULAR HGB CONC 30.1 g/dl (32-36); MEAN PLATELET VOLUME 8.9 fL (7.4-10.4); MONO % 7.8 %; NEUT % 76.6 %; PLATELET COUNT 133 K/uL (130-400); RED BLOOD COUNT 2.53 M/uL (4.2-5.4); WHITE BLOOD COUNT 7.69 K/uL (4.8-10.8)
[2016-06-19 06:46] LABS: COMPLETE YES
[2016-06-19 07:00] LABS: BUN/CREATININE RATIO 22.8 (10-20); CALCIUM 8.3 mg/dl (8.5-10.1); CREATININE 0.78 mg/dl (0.60-1.20); POTASSIUM 3.7 mmol/L (3.5-5.1)
[2016-06-19] MEDS: SUCRALFATE 1 GM/10 ML UDC PO SCH ×4 (07:52→20:00)
[2016-06-19] MEDS: PANTOprazole SOD 40 MG TAB PO SCH ×2 (07:55→20:18)
[2016-06-19] MEDS: METOPROLOL TARTRATE 50 MG TAB PO SCH ×2 (07:55→20:18)
[2016-06-19] MEDS: AMIODARONE 200 MG TAB PO SCH (07:55)
[2016-06-19] MEDS: CLONIDINE HCL 0.1 MG TAB PO SCH ×2 (07:55→20:19)
[2016-06-19] MEDS: INSULIN GLARGINE SOLOSTAR 100 UNITS/ML 3 ML PEN SC SCH (08:03)
[2016-06-19] MEDS: INSULIN ASPART 100 UNITS/ML 3 ML PEN SC SCH ×4 (09:16→21:12)
[2016-06-19] MEDS: TRAMADOL HCL 50 MG TAB PO PRN (09:19)
--- NOTE | 2016-06-19 11:42 | Pulmonology Progress Note ---
Pulmonary Progress Note Date of Service Jun 19, 2016. Attending Dr. Guadarrama Subjective Continues to report intermittent dyspnea alleviated by nebulized bronchodilators. Intermittent cough productive of clear sputum. No hemoptysis. Cough does not wake her from sleep. Denies pain. Reports generalized weakness and is looking forward to advancement of her diet. Reports RUE edema progressive over the past week. Objective 80-yo female admitted to [facility] 05/13/16 with dyspnea and cough. She was treated for COPD and diastolic CHF exacerbation with antibiotic, O2, bronchodilators and diuresis. Influenza: negative. She improved clinically but continued to report severe symptoms associated with hiatal hernia. Ultimately, she underwent left thoracotomy with hernia repair by Dr. Rosas 05/30/16 admitted to [facility] post -op. She did relatively well with small left pneumothorax and CO2 retention felt to be secondary to post-op weakness. Amiodarone gtt post-op and subsequent conversion to NSR. She was treated briefly with mucolytic. - CT Chest (06/22/16) bilateral pleural effusions with loculations on the left and signs of mucus on the tracheal posterior wall - Esophagram (04/01/17) pooling of contrast in the distal esophagus with delayed passage - Video Swallow (06/08/16) no aspiration noted but continued delayed emptying PMHx: diastolic dysfunction (echocardiogram 05/05/16: EF 60-65%, grade I diastolic dysfunction), mitral valve abnormality, CKD III, SSS s/p pacemaker, paroxysmal atrial fibrillation (off AC s/p mechanical fall), DLD, h/o subdural hematoma s/p fall 11/2015, h/o 5mm pulmonary BOWEN, potts esophagus. Former tobacco: 7-year, 1 pack / week. Today: - O2: 99-100% 2LPM - Afebrile, no leukocytosis - Liquid diet - WBC: 7.69, Hgb/Hct/plts: 7.8/25.9/133 - CO2: 35, Na: 147 (furosemide held) - Requesting/receiving PRN albuterol nebulizers Physical Exam: Constitutional: Elderly female with elevated HOB [id number] - hospital bed. Generalized weakness noted. NO acute distress Head: Nasal cannula in place. Slight droop left eye. Mouth: moist mucous membranes. Healing ulcer noted on palate. Respiratory: Non-labored respirations. No accessory muscle use. 1x cough on exam. Diminished BS at bases. Rales at mild hall. No wheeze CV: RRR. Cannot appreciate murmur. Warm peripherally. Abdomen: Soft, protuberant with mid-line scar and ventral hernia visible on right. Active bowel sounds. MSK/Extremities: Moving bilateral UE/LEs. ++ Edema of RUE and hand. non-tender to touch. PICC in place RUE. Mild edema left forearm. ++ pitting edema LEs bilaterally. Neurologic: Awake, alert. Follows commands and answering questions appropriately. Assessment & Plan 80-year-old female with prolonged hospital course and continued bilateral effusion: Lt > Rt: 1. Dyspnea: O2-stable likely multifactorial with reactive airway disease, deconditioning, and diastolic dysfunction - CXR in AM - PT/OT, pulmonary toilet - Nutrition 2. RUE edema in setting of PICC: RUE doppler Patient seen and plan reviewed and agreed on. Data Medications: Current Inpatient Medications Medications (Trade) Dose Ordered Sig/Srinivas Route Start Time Stop Time Status Last Admin Dose Admin Ipratropium [place] (Atrovent 0.02% 0.5MG/2.5ML Neb) 0.5 mg Q6R PRN INH 05/26/16 15:15 06/25/16 15:14 06/13/16 16:06 0.5 MG Levalbuterol (Xopenex 1.25MG/ 0.5ML Neb) 1.25 mg Q6R PRN INH 05/26/16 15:15 06/25/16 15:14 06/13/16 16:06 1.25 MG Albuterol/ Ipratropium (Duoneb) 3 ml Q2H PRN INH 06/01/16 09:30 07/01/16 09:29 06/19/16 01:50 3 ML Heparin Sodium (Porcine) (Heparin 10 Unit/ ml 5 ml Flush) 5 ml PRN PRN FLUSH 06/02/16 13:15 07/02/16 13:14 06/19/16 06:02 5 ML Pantoprazole Sodium (Protonix Tab) 40 mg BID PO 06/03/16 21:00 07/03/16 20:59 06/19/16 07:55 40 MG Metoprolol Tartrate (Lopressor Tab) 50 mg BID PO 06/03/16 21:00 07/03/16 20:59 06/19/16 07:55 50 MG Hydralazine HCl (HydrALAZINE INJ) 5 mg Q6 PRN IV. 06/03/16 20:15 07/03/16 20:14 Insulin Aspart (novoLOG ASPART) SLIDING SCALE G... ACHS SC 06/03/16 21:00 06/29/16 17:59 06/19/16 09:16 6 UNITS Albuterol Sulfate (Ventolin 0.083% 2.5MG/3ML Neb) 2.5 mg Q6R PRN INH 06/05/16 11:30 07/05/16 11:29 06/05/16 19:16 2.5 MG Prednisone (PredniSONE TAB) 10 mg DAILY PO 06/07/16 09:00 07/07/16 08:59 06/19/16 07:55 10 MG Heparin Sodium (Porcine) (Heparin 10 Unit/ ml 5 ml Flush) 5 ml PRN PRN FLUSH 06/08/16 11:15 07/08/16 11:14 Insulin Glargine (Lantus Solostar Pen) 7 unit DAILY SC 06/10/16 08:00 07/10/16 07:59 06/19/16 08:03 7 UNIT Amiodarone HCl (Cordarone Tab) 200 mg QAM PO 06/13/16 08:00 07/13/16 07:59 06/19/16 07:55 200 MG Ondansetron HCl (Zofran Inj) 4 mg Q6H PRN IV 06/13/16 06:30 07/13/16 06:29 06/17/16 15:51 4 MG Acetaminophen (Tylenol Tab) 650 mg Q4H PRN PO 06/13/16 09:30 07/13/16 09:29 06/17/16 08:12 650 MG Heparin Sodium (Porcine) (Heparin Sq 5000 Unit/0.5ml) 5,000 unit Q12H SQ 06/14/16 02:00 07/14/16 01:59 06/19/16 01:45 5,000 UNIT Clonidine HCl (Catapres Tab) 0.1 mg Q6H PRN PO 06/13/16 17:30 07/13/16 17:29 06/15/16 08:06 0.1 MG Levothyroxine Sodium (Synthroid Tab) 50 mcg DAILYBB PO 06/15/16 06:30 07/15/16 06:29 06/19/16 06:17 50 MCG Sucralfate (Carafate Susp) 1 gm QID PO 06/15/16 12:00 07/15/16 11:59 Tramadol HCl (Ultram Tab) 50 mg Q6H PRN PO 06/17/16 18:15 07/17/16 18:14 06/19/16 09:19 50 MG Clonidine HCl (Catapres Tab) 0.1 mg BID PO 06/17/16 22:00 07/17/16 21:59 06/19/16 07:55 0.1 MG I & O: 24-Hour Column 06/19/16 07:59 Intake Total 480 ml Balance 480 ml Vital Signs: Date Time Temp Pulse Resp B/P Pulse Ox O2 Delivery O2 Flow Rate FiO2 06/19/16 10:22 Nasal Cannula 2.0 06/19/16 07:04 36.6 61 18 147/69 99 2.0 06/19/16 01:51 60 18 98 Nasal Cannula 2.0 06/19/16 00:01 Nasal Cannula 2.0 06/18/16 23:18 36.6 60 18 124/63 100 2.0 06/18/16 20:00 Nasal Cannula 2.0 06/18/16 19:28 68 141/73 06/18/16 19:15 74 18 95 Nasal Cannula 2.0 06/18/16 17:10 37.2 66 119/71 96 Nasal Cannula 2.0 06/18/16 16:28 36.7 60 20 118/65 100 3.0 06/18/16 16:05 72 18 94 Nasal Cannula 2.0 06/18/16 15:50 Nasal Cannula 2.0 06/18/16 15:45 37.0 63 16 109/69 99 Nasal Cannula 2.0 06/18/16 15:01 37.5 63 16 130/80 97 06/18/16 11:20 72 18 94 Nasal Cannula 2.0 Laboratory Results: Last 24 Hours Test 06/18/16 11:24 06/18/16 16:35 06/18/16 19:50 06/19/16 05:13 Bedside Glucose 157 mg/dl 190 mg/dl 192 mg/dl White Blood Count 7.69 K/uL Red Blood Count 2.53 M/uL Hemoglobin 7.8 g/dL Hematocrit 25.9 % Mean Corpuscular Volume 102.4 fL Mean Corpuscular Hemoglobin 30.8 pg Mean Corpuscular Hemoglobin Concent 30.1 g/dl Platelet Count 133 K/uL Mean Platelet Volume 8.9 fL Neutrophils (%) (Auto) 76.6 % Lymphocytes (%) (Auto) 11.1 % Monocytes (%) (Auto) 7.8 % Eosinophils (%) (Auto) 2.0 % Basophils (%) (Auto) 0.5 % Neutrophils # (Auto) 5.90 K/uL Lymphocytes # (Auto) 0.85 K/uL Monocytes # (Auto) 0.60 K/uL Eosinophils # (Auto) 0.15 K/uL Basophils # (Auto) 0.04 K/uL RDW Standard Deviation 65.5 fL RDW Coefficient of Variation 18.0 % Immature Granulocyte % (Auto) 2.0 % Immature Granulocyte # (Auto) 0.15 K/uL Nucleated RBC Absolute Count (auto) 0.03 K/uL Nucleated Red Blood Cells % 0.4 % Red Blood Cell Morphology Unremarkable Sodium Level 147 mmol/L Potassium Level 3.7 mmol/L Chloride Level 105 mmol/L Carbon Dioxide Level 35 mmol/L Anion Gap 7.0 mmol/L Blood Urea Nitrogen 18 mg/dl Creatinine 0.78 mg/dl Est Creatinine Clear Calc Drug Dose 63.3 ml/min Estimated GFR () 82.6 Estimated GFR (Non- 71.3 BUN/Creatinine Ratio 22.8 Random Glucose 174 mg/dl Calcium Level 8.3 mg/dl Test 06/19/16 07:33 Bedside Glucose 204 mg/dl
--- NOTE | 2016-06-19 14:57 | DIAGNOSTIC IMAGING REPORT ---
ULTRASOUND venous Doppler ultrasound of the right upper extremity CLINICAL HISTORY: Right arm edema COMPARISON STUDY: No previous studies for comparison. FINDINGS: There is an indwelling right-sided PICC catheter. Thrombus is visualized adjacent to the PICC catheter within the subclavian axillary and brachial veins. There is also nonocclusive thrombus within the selected cephalic vein. No thrombus is visualized within the right internal jugular vein. IMPRESSION: 1. Interval healing right-sided PICC catheter 2. Right upper extremity DVT with involvement of subclavian, axillary, brachial, basilic and cephalic veins. Electronically signed by: Yvan Gupta M.D. 06/19/2016 2:56 PM Dictated Date/Time: 06/19/2016 2:54 PM
[2016-06-19 16:29] LABS: BASO % 0.1 %; BASO ABS # 0.01 K/uL (0-0.2); EOS % 0.6 %; HEMATOCRIT 25.3 % (37-47); IG% 1.3 %; LYMPH % 6.7 %; LYMPH ABS # 0.52 K/uL (1.2-3.4); MEAN CELL VOLUME 100.4 fL (80-100); MEAN CORPUSCULAR HEMOGLOBIN 30.2 pg (25-34); MEAN PLATELET VOLUME 8.6 fL (7.4-10.4); MONO % 7.3 %; PLATELET COUNT 116 K/uL (130-400); RED BLOOD COUNT 2.52 M/uL (4.2-5.4); WHITE BLOOD COUNT 7.78 K/uL (4.8-10.8)
--- NOTE | 2016-06-19 16:34 | Progress Note ---
Medicine Progress Note Date & Time of Visit: Jun 19, 2016 at 16:05. Subjective patient reports increased cough today, with white sputum denies shortness of breath, chest pain, palpitations denies arm pain or leg pain no abdominal pain, nausea denies other symptoms Objective Last 8 Hrs Date Time Temp Pulse Resp B/P Pulse Ox O2 Delivery O2 Flow Rate FiO2 06/19/16 15:28 36.9 67 18 139/73 92 Nasal Cannula 2.0 06/19/16 12:54 60 20 94 Nasal Cannula 2.0 06/19/16 10:22 Nasal Cannula 2.0 Physical Exam: General- oriented x 3, not in distress, speaks in sentences with no effort Neck- no JVD Lungs-(+) crackles, left base, no wheezing Heart- normal rate, regular rhythm; no murmurs Abdomen- normal bowel sounds, soft, nontender Extremities- grade 1-2 pretibial edema, (+) right upper extremity edema no warmth/tenderness/erythema, no calf tenderness Neuro- alert, oriented x 3; no gross focal deficits Skin- warm & dry Laboratory Results: Last 24 Hours Test 06/18/16 16:35 06/18/16 19:50 06/19/16 05:13 06/19/16 07:33 Bedside Glucose 190 mg/dl 192 mg/dl 204 mg/dl White Blood Count 7.69 K/uL Red Blood Count 2.53 M/uL Hemoglobin 7.8 g/dL Hematocrit 25.9 % Mean Corpuscular Volume 102.4 fL Mean Corpuscular Hemoglobin 30.8 pg Mean Corpuscular Hemoglobin Concent 30.1 g/dl Platelet Count 133 K/uL Mean Platelet Volume 8.9 fL Neutrophils (%) (Auto) 76.6 % Lymphocytes (%) (Auto) 11.1 % Monocytes (%) (Auto) 7.8 % Eosinophils (%) (Auto) 2.0 % Basophils (%) (Auto) 0.5 % Neutrophils # (Auto) 5.90 K/uL Lymphocytes # (Auto) 0.85 K/uL Monocytes # (Auto) 0.60 K/uL Eosinophils # (Auto) 0.15 K/uL Basophils # (Auto) 0.04 K/uL RDW Standard Deviation 65.5 fL RDW Coefficient of Variation 18.0 % Immature Granulocyte % (Auto) 2.0 % Immature Granulocyte # (Auto) 0.15 K/uL Nucleated RBC Absolute Count (auto) 0.03 K/uL Nucleated Red Blood Cells % 0.4 % Red Blood Cell Morphology Unremarkable Sodium Level 147 mmol/L Potassium Level 3.7 mmol/L Chloride Level 105 mmol/L Carbon Dioxide Level 35 mmol/L Anion Gap 7.0 mmol/L Blood Urea Nitrogen 18 mg/dl Creatinine 0.78 mg/dl Est Creatinine Clear Calc Drug Dose 63.3 ml/min Estimated GFR () 82.6 Estimated GFR (Non- 71.3 BUN/Creatinine Ratio 22.8 Random Glucose 174 mg/dl Calcium Level 8.3 mg/dl Test 06/19/16 11:28 06/19/16 15:48 Bedside Glucose 182 mg/dl Assessment & Plan 80 yoF with significant heart history and valve issues admitted for increased work of breathing 2/2 CHF exacerbation and copd exacerbation. ACUTE DVT , RIGHT UPPER ARM -Doppler US: 1. Interval healing right-sided PICC catheter 2. Right upper extremity DVT with involvement of subclavian, axillary, brachial, basilic and cephalic veins. - discussed with Cardiology regarding history of pericardial hemorrhage in 2014 associated with PM placement, ok to anticoagulate has history of subdural hemorrhage in 2015 s/p mechanical fall, repeat CT head March 2016 showed resolution - will start Heparin full dose Hematology consult check Leg Dopplers to r/o DVT CHF AND COPD EXACERBATION HYPOXEMIA, RESOLVING resolved received Lasix, Antibiotics - repeat CT chest: loculated pleural effusion on the Left - Pulm and Thoracic Surgery on board continue Spirometry, monitor closely on Prednisone, Singulair - respiratory status remains stable - resumed Lasix at a lower dose of 20mg BID--> held for hypernatremia CXR: unchanged -- discussed with Dr. Sprague Day 2 Lasix + Albumin trial monitor I&O -- repeat CXR today, (+) cough, r/o pneumonia HIATAL HERNIA s/p status post left thoracotomy with Belsey Jose IV repair on 05/30/2016 Was in ICU following surgery and then in Tele s/p removal NG tube and chest tube removal - improving gradually continue Liquid diet til 06/19/16 Barium Swallow did show lower Esophageal narrowing likely due to post surgical edema Belching improved -- Sucralfate added continue Full liquids til , possibly advance tomorrow monitor DECONDITIONING PT/OT daily HISTORY OF A FIB - warfarin discontinued in the past due to hx of hemorrhagic pericardial effusion and subdural hematoma s/p fall - continue Amiodarone, Metoprolol - discussed with Cardiology, may start Heparin for DVT SSS S/P PACER no acute issues HTN continue Metoprolol resumed Clonidine 0.1mg improving Nutrition Started on liquid diet and will continue till of this month Thrombocytopenia, Resolved Was placed on Lovenox post surgery HIT studies-negative Started SQ Heparin 06/09/16 MITRAL VALVE ANOMALY ECHO::ECHO:: * Sinus rhythm was present during the echocardiogram. * There is a 0.6cm x 0.6cm mobile echodensity attached to ventricular surface of the mitral valve annulus near the left ventricular outflow tract. * Calcified mitral apparatus. * The aortic valve is moderately calcified. * Mild valvular aortic stenosis. * Moderate aortic regurgitation. * The left ventricular wall motion is normal. * Ejection Fraction = 60-65%. * Grade I diastolic dysfunction, (abnormal relaxation pattern). * Compared to the most recent echocardiogram, the echodensity is unchanged. cardiology evaluated the patient stable ACUTE RENAL FAILURE RESOLVED DM hgb a1c 7.0 03/2016 oral agents on hold. - ISS GERD, HIATAL HERNIA Pantoprazole BID HYPOTHYROIDISM on levothyroxine DEPRESSION on sertraline DVT PROPHYLAXIS - was on heparin for DVT prophylaxis full dose heparin now CODE STATUS DNR DISPO: social service for d/c planning Continue PT/OT Will need placement-Rehab placement Consultants: Cards Current Inpatient Medications: Current Inpatient Medications Medications (Trade) Dose Ordered Sig/Srinivas Route Start Time Stop Time Status Last Admin Dose Admin Ipratropium [place] (Atrovent 0.02% 0.5MG/2.5ML Neb) 0.5 mg Q6R PRN INH 05/26/16 15:15 06/25/16 15:14 06/13/16 16:06 0.5 MG Levalbuterol (Xopenex 1.25MG/ 0.5ML Neb) 1.25 mg Q6R PRN INH 05/26/16 15:15 06/25/16 15:14 06/13/16 16:06 1.25 MG Albuterol/ Ipratropium (Duoneb) 3 ml Q2H PRN INH 06/01/16 09:30 07/01/16 09:29 06/19/16 12:54 3 ML Heparin Sodium (Porcine) (Heparin 10 Unit/ ml 5 ml Flush) 5 ml PRN PRN FLUSH 06/02/16 13:15 07/02/16 13:14 06/19/16 06:02 5 ML Pantoprazole Sodium (Protonix Tab) 40 mg BID PO 06/03/16 21:00 07/03/16 20:59 06/19/16 07:55 40 MG Metoprolol Tartrate (Lopressor Tab) 50 mg BID PO 06/03/16 21:00 07/03/16 20:59 06/19/16 07:55 50 MG Hydralazine HCl (HydrALAZINE INJ) 5 mg Q6 PRN IV. 06/03/16 20:15 07/03/16 20:14 Insulin Aspart (novoLOG ASPART) SLIDING SCALE G... ACHS SC 06/03/16 21:00 06/29/16 17:59 06/19/16 13:08 3 UNITS Albuterol Sulfate (Ventolin 0.083% 2.5MG/3ML Neb) 2.5 mg Q6R PRN INH 06/05/16 11:30 07/05/16 11:29 06/05/16 19:16 2.5 MG Prednisone (PredniSONE TAB) 10 mg DAILY PO 06/07/16 09:00 07/07/16 08:59 06/19/16 07:55 10 MG Heparin Sodium (Porcine) (Heparin 10 Unit/ ml 5 ml Flush) 5 ml PRN PRN FLUSH 06/08/16 11:15 07/08/16 11:14 Insulin Glargine (Lantus Solostar Pen) 7 unit DAILY SC 06/10/16 08:00 07/10/16 07:59 06/19/16 08:03 7 UNIT Amiodarone HCl (Cordarone Tab) 200 mg QAM PO 06/13/16 08:00 07/13/16 07:59 06/19/16 07:55 200 MG Ondansetron HCl (Zofran Inj) 4 mg Q6H PRN IV 06/13/16 06:30 07/13/16 06:29 06/17/16 15:51 4 MG Acetaminophen (Tylenol Tab) 650 mg Q4H PRN PO 06/13/16 09:30 07/13/16 09:29 06/17/16 08:12 650 MG Clonidine HCl (Catapres Tab) 0.1 mg Q6H PRN PO 06/13/16 17:30 07/13/16 17:29 06/15/16 08:06 0.1 MG Levothyroxine Sodium (Synthroid Tab) 50 mcg DAILYBB PO 06/15/16 06:30 07/15/16 06:29 06/19/16 06:17 50 MCG Sucralfate (Carafate Susp) 1 gm QID PO 06/15/16 12:00 07/15/16 11:59 Tramadol HCl (Ultram Tab) 50 mg Q6H PRN PO 06/17/16 18:15 07/17/16 18:14 06/19/16 09:19 50 MG Clonidine HCl (Catapres Tab) 0.1 mg BID PO 06/17/16 22:00 07/17/16 21:59 06/19/16 07:55 0.1 MG Heparin Sodium/ Dextrose 1 ea Q10M N/A 06/19/16 16:00 07/19/16 15:59
[2016-06-19 16:42] LABS: INR 1.1 (0.9-1.1); PARTIAL THROMBOPLASTIN RATIO 1.2; PROTHROMBIN TIME (PATIENT) 11.6 SECONDS (9.0-12.0)
[2016-06-19 16:57] LABS: COMPLETE YES; POLYCHROMASIA 1+
[2016-06-19] MEDS ORDERED: ALBUMIN 25% 50 ML with FUROSEMIDE INJ 40 MG IV ONE ×2 (17:00)
[2016-06-19] MEDS: HEPARIN 25,000 UNIT/500ML D5W 500 ML IV PRN ×2 (17:19→23:30)
--- NOTE | 2016-06-19 17:28 | SURGERY PROGRESS NOTE ---
DATE: 06/19/2016 SUBJECTIVE: Ms. Robledo has multiple complaints. She states that her knees hurt. She states her legs are swollen. She states her right arm is swollen. She wants more to eat than macaroni. She actually looks good with good saturations on just 2 liters of O2. She does have decreased breath sounds on the left. She really is not pushing herself. Ultrasound shows she does have some evidence of thrombosis around the PICC line involving the subclavian vein. She is now being placed on full anticoagulation. We will continue to follow along. I would not want to intervene on the fluid in her chest yet as I think she will resorb this fluid. NORMA
[2016-06-19 23:44] LABS: PARTIAL THROMBOPLASTIN RATIO 3.2
[2016-06-20] VITALS (7 sets, daily range): BP systolic 133–147; BP diastolic 65–75; PULSE 56–71; TEMP 36.4–37.2; O2SAT 93–100
[2016-06-20] MEDS: HEPARIN 25,000 UNIT/500ML D5W 500 ML IV PRN (00:37)
[2016-06-20] MEDS: LEVOTHYROXINE 50 MCG TAB PO SCH (05:20)
[2016-06-20 06:58] LABS: HEMATOCRIT 27.2 % (37-47); MEAN CELL VOLUME 103.4 fL (80-100); MEAN CORPUSCULAR HEMOGLOBIN 31.2 pg (25-34); MEAN CORPUSCULAR HGB CONC 30.1 g/dl (32-36); MEAN PLATELET VOLUME 9.5 fL (7.4-10.4); PLATELET COUNT 130 K/uL (130-400); RED BLOOD COUNT 2.63 M/uL (4.2-5.4); WHITE BLOOD COUNT 8.98 K/uL (4.8-10.8)
--- NOTE | 2016-06-20 07:17 | DIAGNOSTIC IMAGING REPORT ---
CHEST ONE VIEW PORTABLE CLINICAL HISTORY: Pleural effusion, pneumonia. COMPARISON STUDY: 06/16/2016 FINDINGS: The heart remains enlarged. There is a left subclavian dual-chamber central venous pacemaker. There is a right-sided PICC catheter the tip of which projects over the superior vena cava. There is mild pulmonary vascular congestion. There are bilateral pleural effusions with associated left lower lobe atelectasis/consolidation.[ IMPRESSION: 1. Cardiomegaly with mild pulmonary vascular congestion and bilateral pleural effusions 2. Left lower lobe atelectasis/consolidation Electronically signed by: Yvan Gupta M.D. 06/20/2016 7:16 AM Dictated Date/Time: 06/20/2016 7:15 AM
[2016-06-20 07:28] LABS: PARTIAL THROMBOPLASTIN RATIO 3.4
[2016-06-20] MEDS: ALBUT/IPRATROP 3MG/0.5MG NEB 3 ML VIAL INH PRN ×3 (07:35→20:58)
[2016-06-20] MEDS: PANTOprazole SOD 40 MG TAB PO SCH ×2 (07:39→20:54)
[2016-06-20] MEDS: SUCRALFATE 1 GM/10 ML UDC PO SCH ×4 (07:39→20:00)
[2016-06-20] MEDS: AMIODARONE 200 MG TAB PO SCH (07:39)
[2016-06-20] MEDS: CLONIDINE HCL 0.1 MG TAB PO SCH ×2 (07:39→20:53)
[2016-06-20] MEDS: METOPROLOL TARTRATE 50 MG TAB PO SCH ×2 (07:39→20:54)
[2016-06-20] MEDS: INSULIN GLARGINE SOLOSTAR 100 UNITS/ML 3 ML PEN SC SCH (08:58)
[2016-06-20] MEDS: INSULIN ASPART 100 UNITS/ML 3 ML PEN SC SCH ×4 (08:58→21:00)
--- NOTE | 2016-06-20 09:09 | SURGERY PROGRESS NOTE ---
DATE: 06/20/2016 Mrs. Robledo was seen today. She is eating oatmeal without difficulty. She is being treated with full anticoagulation. I thought her x-ray looked about the same. I would not do anything different with this fluid as I think she will resorb it. Needless to say, Mrs. Robledo is an 80-year-old who is very slow to move. She really needs to be pushed in therapy and it is difficult. I would follow periodic x-rays on her, but from our standpoint, she may be discharged at the hospitalist's discretion.
[2016-06-20] MEDS ORDERED: BISACODYL 10 MG SUPP PR STA (13:42)
[2016-06-20] MEDS ORDERED: POLYETHYLENE (MIRALAX) 17 GM PACK PO ONE (13:45)
[2016-06-20 14:34] LABS: PARTIAL THROMBOPLASTIN RATIO 2.3
--- NOTE | 2016-06-20 14:36 | Progress Note ---
Internal Med Progress Note Date of Service: Jun 20, 2016. Provider Documentation: SUBJECTIVE: The patient was seen and examined Generally weak and lethargic Minimal SOB at rest Has not had a bowel movement for the last 2-3 days Pain right UE OBJECTIVE: Vital Signs-as noted below Exam: General-Minimal distress at rest Generally weak and lethargic Eyes-Normal ENT-normal Neck-supple Lungs-Decreased breath sound bilaterally More on the left base Heart-Irregular,no murmur Abdomen-Soft,huge ventral hernia ,no obstruction Extremities-Trace Edema both upper and Lower extremities Neuro-AAOx3 Lab data as noted below. ASSESSMENT & PLAN: 80y F with significant heart history and valve issues admitted for increased work of breathing 2/2 CHF exacerbation and copd exacerbation. ACUTE DVT , RIGHT UPPER ARM -Doppler US: 1. Interval healing right-sided PICC catheter 2. Right upper extremity DVT with involvement of subclavian, axillary, brachial, basilic and cephalic veins. - discussed with Cardiology regarding history of pericardial hemorrhage in 2014 associated with PM placement, ok to anticoagulate has history of subdural hemorrhage in 2015 s/p mechanical fall, repeat CT head March 2016 showed resolution - will start Heparin full dose -Hematology consult -check Leg Dopplers to r/o DVT -Has been on Heparin and Coumadin Severe Belching-for a long time Secondary huge hiatal hernia s/p status post left thoracotomy with Belsey Jose IV repair on 05/30/2016 Was in ICU following surgery and then in Tele s/p removal NG tube and chest tube removal Clinically much better now 06/04/16 Will have Liquid diet till of this month Barium Swallow did show lower Esophageal narrowing likely due to post surgical edema Belching is improved Tolerating soft diet and ready to be discharged Hypoxemia intermittent SOB :In and out of Telemetry unit CXR-no significant finding bur may have infiltration /Pneumonia Started on IV Clinda ,Nebs and Mucomyst Evaluated by Thoracic Surgery Transferred to Tele Condition improved a lot Did not need Bronchoscopy Appreciate Pulmonary input Clinically much better today Transferred back to floor and start vigorous PT Advised more participation with Physical therapy Wayne sylvester Was on amiodarone drip as patient is npo Restarted on po amiodarone, dose as per cardiology. Clinically stable and the rate is controlled Continue Amiodarone HTN Restarted po meds Lopressor and clonidine BP is still running high at times iv hydralazine prn Nutrition Started on liquid diet and will continue till of this month Can advance diet as tolerated Thrombocytopenia Was placed on Lovenox post surgery which will be stopped f/u HIT studies-negative Improved Start SQ Heparin 06/09/16 Hospital course so far: Intial presentation with ACUTE HYPOXIC RESPIRATORY FAILURE, LIKELY MULTIFACTORIAL DUE TO ACUTE DIASTOLIC CHF AND/OR COPD EXACERBATION Presented with cough and SOB x 3 days; influenza outbreak at halfway however patient has been on prophylactic Tamilfu since 05/05 87% on room air on arrival, improved with oxygen 2L via NC Treated with steroids, Lasix and abx ECHO did not show any significant change compared with prior test Appreciate Cardiology input Cardiology started on lower dose Losartan which was stopped secondary to arf and hyperkalemia Requiring oxygen while sleeping on nocturna pulse ox study Prednisone on a tapering dose Appreciate Pulmonary input MITRAL VALVE ANOMALY ECHO::ECHO:: * Sinus rhythm was present during the echocardiogram. * There is a 0.6cm x 0.6cm mobile echodensity attached to ventricular surface of the mitral valve annulus near the left ventricular outflow tract. * Calcified mitral apparatus. * The aortic valve is moderately calcified. * Mild valvular aortic stenosis. * Moderate aortic regurgitation. * The left ventricular wall motion is normal. * Ejection Fraction = 60-65%. * Grade I diastolic dysfunction, (abnormal relaxation pattern). * Compared to the most recent echocardiogram, the echodensity is unchanged. cardiology on board stable cardiac condition ATRIAL FIBRILLATION on amiodarone and metoprolol rate controlled Not anticoagulated due to hx of hemorrhagic pericardial effusion and subdural hematoma s/p fall was on amiodarone drip post surgery back on po amiodarone maintenance dose SSS S/P PACER no acute issues ARF' baseline cr 1.2 to 1.3 Monitor labs. DM hgb a1c 7.0 03/2016 oral agents on hold. SSI while hospitalized will monitor GERD, HIATAL HERNIA on PPI/H2 filipe HYPOTHYROIDISM on levothyroxine DEPRESSION on sertraline DVT PROPHYLAXIS Now on Heparin and Coumadin CODE STATUS DNR DISPO: social service for d/c planning Continue PT/OT Will need placement-Rehab placement Vital Signs: Date Time Temp Pulse Resp B/P Pulse Ox O2 Delivery O2 Flow Rate FiO2 06/20/16 08:00 100 Nasal Cannula 2.0 06/20/16 07:35 71 20 93 Nasal Cannula 3.0 06/20/16 07:33 36.7 60 17 133/65 100 Nasal Cannula 3.0 06/20/16 00:50 Nasal Cannula 2.0 06/19/16 23:06 37.0 58 20 127/73 96 Nasal Cannula 2.0 06/19/16 21:03 68 20 95 Nasal Cannula 2.0 06/19/16 20:21 62 17 135/69 92 Nasal Cannula 2.0 62 06/19/16 16:10 92 Nasal Cannula 2.0 06/19/16 15:28 36.9 67 18 139/73 92 Nasal Cannula 2.0 Lab Results: Results Past 24 Hours Test 06/19/16 16:11 06/19/16 16:15 06/19/16 20:06 06/19/16 23:08 Range/Units Bedside Glucose 129 237 70-90 mg/dl White Blood Count 7.78 4.8-10.8 K/uL Red Blood Count 2.52 4.2-5.4 M/uL Hemoglobin 7.6 12.0-16.0 g/dL Hematocrit 25.3 37-47 % Mean Corpuscular Volume 100.4 80-100 fL Mean Corpuscular Hemoglobin 30.2 25-34 pg Mean Corpuscular Hemoglobin Concent 30.0 32-36 g/dl Platelet Count 116 130-400 K/uL Mean Platelet Volume 8.6 7.4-10.4 fL Neutrophils (%) (Auto) 84.0 % Lymphocytes (%) (Auto) 6.7 % Monocytes (%) (Auto) 7.3 % Eosinophils (%) (Auto) 0.6 % Basophils (%) (Auto) 0.1 % Neutrophils # (Auto) 6.53 1.4-6.5 K/uL Lymphocytes # (Auto) 0.52 1.2-3.4 K/uL Monocytes # (Auto) 0.57 0.11-0.59 K/uL Eosinophils # (Auto) 0.05 0-0.5 K/uL Basophils # (Auto) 0.01 0-0.2 K/uL RDW Standard Deviation 64.4 36.4-46.3 fL RDW Coefficient of Variation 17.9 11.5-14.5 % Immature Granulocyte % (Auto) 1.3 % Immature Granulocyte # (Auto) 0.10 0.00-0.02 K/uL Polychromasia 1+ Prothrombin Time 11.6 9.0-12.0 SECONDS Prothromb Time International Ratio 1.1 0.9-1.1 Activated Partial Thromboplast Time 31.6 83.9 21.0-31.0 SECONDS Partial Thromboplastin Ratio 1.2 3.2 Test 06/20/16 06:40 06/20/16 07:54 06/20/16 11:21 06/20/16 13:55 Range/Units White Blood Count 8.98 4.8-10.8 K/uL Red Blood Count 2.63 4.2-5.4 M/uL Hemoglobin 8.2 12.0-16.0 g/dL Hematocrit 27.2 37-47 % Mean Corpuscular Volume 103.4 80-100 fL Mean Corpuscular Hemoglobin 31.2 25-34 pg Mean Corpuscular Hemoglobin Concent 30.1 32-36 g/dl RDW Standard Deviation 66.9 36.4-46.3 fL RDW Coefficient of Variation 18.0 11.5-14.5 % Platelet Count 130 130-400 K/uL Mean Platelet Volume 9.5 7.4-10.4 fL Nucleated RBC Absolute Count (auto) 0.03 0-0 K/uL Nucleated Red Blood Cells % 0.3 % Activated Partial Thromboplast Time 89.2 21.0-31.0 SECONDS Partial Thromboplastin Ratio 3.4 Bedside Glucose 143 143 70-90 mg/dl
--- NOTE | 2016-06-20 16:07 | Pulmonology Progress Note ---
Pulmonary Progress Note Date of Service Jun 20, 2016. Attending Hector Guadarrama Subjective Patient with no acute pulmonary changes overnight but does note leaking from her PICC line site. Objective 80-yo female admitted to [facility] 05/13/16 with dyspnea and cough. She was treated for COPD and diastolic CHF exacerbation with antibiotic, O2, bronchodilators and diuresis. Influenza: negative. She improved clinically but continued to report severe symptoms associated with hiatal hernia. Ultimately, she underwent left thoracotomy with hernia repair by Dr. Rosas 05/30/16 admitted to [facility] post -op. She did relatively well with small left pneumothorax and CO2 retention felt to be secondary to post-op weakness. Amiodarone gtt post-op and subsequent conversion to NSR. She was treated briefly with mucolytic. - CT Chest (06/22/16) bilateral pleural effusions with loculations on the left and signs of mucus on the tracheal posterior wall - Esophagram (04/01/17) pooling of contrast in the distal esophagus with delayed passage - Video Swallow (06/08/16) no aspiration noted but continued delayed emptying -Chest x-ray 06/20/2016 PICC line tip superior vena cava, no signs of pneumothorax, bilateral hilar fullness with parabronchial cuffing and blunting of costophrenic angles left greater than right -Right upper extremity DVT study: Right upper extremity DVT noted with involvement of the subclavian, brachial and cephalic veins PMHx: diastolic dysfunction (echocardiogram 05/05/16: EF 60-65%, grade I diastolic dysfunction), mitral valve abnormality, CKD III, SSS s/p pacemaker, paroxysmal atrial fibrillation (off AC s/p mechanical fall), DLD, h/o subdural hematoma s/p fall 11/2015, h/o 5mm pulmonary BOWEN, potts esophagus. Former tobacco: 7-year, 1 pack / week. Today: - O2: 99-100% 2LPM - Afebrile, no leukocytosis - Liquid diet - WBC: 7.69, Hgb/Hct/plts: 7.8/25.9/133 - CO2: 35, Na: 147 (furosemide held) - Requesting/receiving PRN albuterol nebulizers Physical Exam: I/Os: 16 L positive throughout her hospital stay, 400 cc positive over the last 24 hours Constitutional: No apparent distress Respiratory: Decreased breath sounds bilaterally left greater than right with costophrenic blunting bilaterally CV: RRR. Distant heart sounds unable to auscultate for murmurs rubs or gallops Extremity: Right upper extremity PICC line in place notable fluid seepage tach into the op site and soaking the Biopatch, no acute signs of extravasation at this time Chest x-ray 06/20/2016 PICC line placed as well as bichamber pacer. Hilar fullness noted along with parabronchial cuffing and costophrenic Blunting left greater than right. Right upper extremity Doppler Right upper extremity DVT with involvement of the subclavian artery/brachial/ systolic and cephalic veins Assessment & Plan 80-year-old female with prolonged hospital course and continued bilateral effusion: Lt > Rt: 1. Dyspnea: O2-stable likely multifactorial with reactive airway disease, deconditioning, and diastolic dysfunction Chest x-ray, physical exam and I/O's note volume overload status. Would continue to gently diurese this patient. Deconditioning: Will require rehabilitation 2. RUE DVT: Right upper extremity DVT associated with PICC line. PICC line seems to be leaking at this time. Suggest we switch from heparin as it is a large volume to Lovenox and continue Coumadin. Data Medications: Current Inpatient Medications Medications (Trade) Dose Ordered Sig/Srinivas Route Start Time Stop Time Status Last Admin Dose Admin Ipratropium Banks (Atrovent 0.02% 0.5MG/2.5ML Neb) 0.5 mg Q6R PRN INH 05/26/16 15:15 06/25/16 15:14 06/13/16 16:06 0.5 MG Levalbuterol (Xopenex 1.25MG/ 0.5ML Neb) 1.25 mg Q6R PRN INH 05/26/16 15:15 06/25/16 15:14 06/13/16 16:06 1.25 MG Albuterol/ Ipratropium (Duoneb) 3 ml Q2H PRN INH 06/01/16 09:30 07/01/16 09:29 06/20/16 14:24 3 ML Heparin Sodium (Porcine) (Heparin 10 Unit/ ml 5 ml Flush) 5 ml PRN PRN FLUSH 06/02/16 13:15 07/02/16 13:14 06/19/16 06:02 5 ML Pantoprazole Sodium (Protonix Tab) 40 mg BID PO 06/03/16 21:00 07/03/16 20:59 06/20/16 07:39 40 MG Metoprolol Tartrate (Lopressor Tab) 50 mg BID PO 06/03/16 21:00 07/03/16 20:59 06/20/16 07:39 50 MG Hydralazine HCl (HydrALAZINE INJ) 5 mg Q6 PRN IV. 06/03/16 20:15 07/03/16 20:14 Insulin Aspart (novoLOG ASPART) SLIDING SCALE G... ACHS SC 06/03/16 21:00 06/29/16 17:59 06/20/16 13:45 5 UNITS Albuterol Sulfate (Ventolin 0.083% 2.5MG/3ML Neb) 2.5 mg Q6R PRN INH 06/05/16 11:30 07/05/16 11:29 06/05/16 19:16 2.5 MG Prednisone (PredniSONE TAB) 10 mg DAILY PO 06/07/16 09:00 07/07/16 08:59 06/20/16 07:39 10 MG Heparin Sodium (Porcine) (Heparin 10 Unit/ ml 5 ml Flush) 5 ml PRN PRN FLUSH 06/08/16 11:15 07/08/16 11:14 Insulin Glargine (Lantus Solostar Pen) 7 unit DAILY SC 06/10/16 08:00 07/10/16 07:59 06/20/16 08:58 7 UNIT Amiodarone HCl (Cordarone Tab) 200 mg QAM PO 06/13/16 08:00 07/13/16 07:59 06/20/16 07:39 200 MG Ondansetron HCl (Zofran Inj) 4 mg Q6H PRN IV 06/13/16 06:30 07/13/16 06:29 06/17/16 15:51 4 MG Acetaminophen (Tylenol Tab) 650 mg Q4H PRN PO 06/13/16 09:30 07/13/16 09:29 06/17/16 08:12 650 MG Clonidine HCl (Catapres Tab) 0.1 mg Q6H PRN PO 06/13/16 17:30 07/13/16 17:29 06/15/16 08:06 0.1 MG Levothyroxine Sodium (Synthroid Tab) 50 mcg DAILYBB PO 06/15/16 06:30 07/15/16 06:29 06/20/16 05:20 50 MCG Sucralfate (Carafate Susp) 1 gm QID PO 06/15/16 12:00 07/15/16 11:59 Tramadol HCl (Ultram Tab) 50 mg Q6H PRN PO 06/17/16 18:15 07/17/16 18:14 06/19/16 09:19 50 MG Clonidine HCl 0.1 mg 0.1 mg BID PO 06/17/16 22:00 07/17/16 21:59 06/20/16 07:39 0.1 MG Heparin Sodium/ Dextrose (Heparin 25,000 Unit/500ml D5W) 500 ml @ 19 mls/hr Q24H PRN IV 06/19/16 16:45 07/19/16 16:44 06/20/16 00:37 25 MLS/HR Docusate Sodium (coLACE CAP) 100 mg BID PO 06/20/16 20:00 07/20/16 19:59 Warfarin Sodium (Coumadin Tab) 5 mg DAILY@16 PO 06/20/16 16:00 07/20/16 15:59 I & O: 24-Hour Column 06/20/16 07:59 Intake Total 658 ml Balance 658 ml Vital Signs: Date Time Temp Pulse Resp B/P Pulse Ox O2 Delivery O2 Flow Rate FiO2 06/20/16 14:25 59 20 95 Nasal Cannula 3.0 06/20/16 08:00 100 Nasal Cannula 2.0 06/20/16 07:35 71 20 93 Nasal Cannula 3.0 06/20/16 07:33 36.7 60 17 133/65 100 Nasal Cannula 3.0 06/20/16 00:50 Nasal Cannula 2.0 06/19/16 23:06 37.0 58 20 127/73 96 Nasal Cannula 2.0 06/19/16 21:03 68 20 95 Nasal Cannula 2.0 06/19/16 20:21 62 17 135/69 92 Nasal Cannula 2.0 62 06/19/16 16:10 92 Nasal Cannula 2.0 Laboratory Results: Last 24 Hours Test 06/19/16 16:11 06/19/16 16:15 06/19/16 20:06 06/19/16 23:08 Bedside Glucose 129 mg/dl 237 mg/dl White Blood Count 7.78 K/uL Red Blood Count 2.52 M/uL Hemoglobin 7.6 g/dL Hematocrit 25.3 % Mean Corpuscular Volume 100.4 fL Mean Corpuscular Hemoglobin 30.2 pg Mean Corpuscular Hemoglobin Concent 30.0 g/dl Platelet Count 116 K/uL Mean Platelet Volume 8.6 fL Neutrophils (%) (Auto) 84.0 % Lymphocytes (%) (Auto) 6.7 % Monocytes (%) (Auto) 7.3 % Eosinophils (%) (Auto) 0.6 % Basophils (%) (Auto) 0.1 % Neutrophils # (Auto) 6.53 K/uL Lymphocytes # (Auto) 0.52 K/uL Monocytes # (Auto) 0.57 K/uL Eosinophils # (Auto) 0.05 K/uL Basophils # (Auto) 0.01 K/uL RDW Standard Deviation 64.4 fL RDW Coefficient of Variation 17.9 % Immature Granulocyte % (Auto) 1.3 % Immature Granulocyte # (Auto) 0.10 K/uL Polychromasia 1+ Prothrombin Time 11.6 SECONDS Prothromb Time International Ratio 1.1 Activated Partial Thromboplast Time 31.6 SECONDS 83.9 SECONDS Partial Thromboplastin Ratio 1.2 3.2 Test 06/20/16 06:40 06/20/16 07:54 06/20/16 11:21 06/20/16 13:55 White Blood Count 8.98 K/uL Red Blood Count 2.63 M/uL Hemoglobin 8.2 g/dL Hematocrit 27.2 % Mean Corpuscular Volume 103.4 fL Mean Corpuscular Hemoglobin 31.2 pg Mean Corpuscular Hemoglobin Concent 30.1 g/dl RDW Standard Deviation 66.9 fL RDW Coefficient of Variation 18.0 % Platelet Count 130 K/uL Mean Platelet Volume 9.5 fL Nucleated RBC Absolute Count (auto) 0.03 K/uL Nucleated Red Blood Cells % 0.3 % Activated Partial Thromboplast Time 89.2 SECONDS 58.7 SECONDS Partial Thromboplastin Ratio 3.4 2.3 Bedside Glucose 143 mg/dl 143 mg/dl Test 06/20/16 14:37
[2016-06-20 16:27] LABS: INR 1.1 (0.9-1.1)
[2016-06-20] MEDS: WARFARIN SOD 5 MG TAB PO SCH (16:36)
[2016-06-20] MEDS: ENOXAPARIN 100 MG/1ML SYR SQ SCH (18:10)
[2016-06-20] MEDS: DOCUSATE SODIUM 100 MG CAP PO SCH (20:53)
[2016-06-20] MEDS: TRAMADOL HCL 50 MG TAB PO PRN (21:08)
[2016-06-21] VITALS (8 sets, daily range): BP systolic 118–142; BP diastolic 66–69; PULSE 59–68; TEMP 36.6–36.8; O2SAT 94–98
[2016-06-21] MEDS: ALBUT/IPRATROP 3MG/0.5MG NEB 3 ML VIAL INH PRN ×3 (05:40→19:39)
[2016-06-21 06:21] LABS: INR 1.2 (0.9-1.1); PROTHROMBIN TIME (PATIENT) 12.7 SECONDS (9.0-12.0)
[2016-06-21] MEDS: LEVOTHYROXINE 50 MCG TAB PO SCH (06:41)
[2016-06-21] MEDS: AMIODARONE 200 MG TAB PO SCH (07:46)
[2016-06-21] MEDS: CLONIDINE HCL 0.1 MG TAB PO SCH ×2 (07:46→20:26)
[2016-06-21] MEDS: DOCUSATE SODIUM 100 MG CAP PO SCH ×2 (07:47→20:25)
[2016-06-21] MEDS: PANTOprazole SOD 40 MG TAB PO SCH ×2 (07:47→20:25)
[2016-06-21] MEDS: SUCRALFATE 1 GM/10 ML UDC PO SCH ×4 (07:47→20:00)
[2016-06-21] MEDS: ENOXAPARIN 100 MG/1ML SYR SQ SCH ×2 (07:47→17:11)
[2016-06-21] MEDS: METOPROLOL TARTRATE 50 MG TAB PO SCH ×2 (07:47→20:26)
[2016-06-21] MEDS ORDERED: POLYETHYLENE (MIRALAX) 17 GM PACK PO SCH (08:00)
[2016-06-21] MEDS: INSULIN ASPART 100 UNITS/ML 3 ML PEN SC SCH ×5 (09:14→20:27)
[2016-06-21] MEDS: INSULIN GLARGINE SOLOSTAR 100 UNITS/ML 3 ML PEN SC SCH (09:15)
[2016-06-21] MEDS: ALBUTEROL 0.083% NEBU SOLN 3 ML VIAL INH PRN (12:07)
[2016-06-21 14:47] LABS: INR 1.3 (0.9-1.1); PROTHROMBIN TIME (PATIENT) 13.7 SECONDS (9.0-12.0)
[2016-06-21 16:02] LABS: CREATININE 0.7 mg/dl (0.60-1.20)
[2016-06-21] MEDS: WARFARIN SOD 5 MG TAB PO SCH (16:03)
--- NOTE | 2016-06-21 17:40 | Progress Note ---
Internal Med Progress Note Date of Service: Jun 21, 2016. Provider Documentation: SUBJECTIVE: The patient was seen and examined Generally weak and lethargic No SOB today Remains stable OBJECTIVE: Vital Signs-as noted below Exam: General-Minimal distress at rest Generally weak and lethargic Eyes-Normal ENT-normal Neck-supple Lungs-Decreased breath sound bilaterally More on the left base Heart-Irregular,no murmur Abdomen-Soft,huge ventral hernia ,no obstruction Extremities-Trace Edema both upper and Lower extremities Right Upper Extremity is swollen Neuro-AAOx3 Lab data as noted below. ASSESSMENT & PLAN: 80y F with significant heart history and valve issues admitted for increased work of breathing 2/2 CHF exacerbation and copd exacerbation. ACUTE DVT , RIGHT UPPER ARM -Doppler US: 1. Interval healing right-sided PICC catheter 2. Right upper extremity DVT with involvement of subclavian, axillary, brachial, basilic and cephalic veins. - discussed with Cardiology regarding history of pericardial hemorrhage in 2014 associated with PM placement, ok to anticoagulate has history of subdural hemorrhage in 2015 s/p mechanical fall, repeat CT head March 2016 showed resolution - will start Heparin full dose -Hematology consult -check Leg Dopplers to r/o DVT -Has been on Heparin and Coumadin -was changed to Lovenox and Coumadin -has had one episode of questionable hemoptysis-hold Lovenox now Severe Belching-for a long time Secondary huge hiatal hernia s/p status post left thoracotomy with Belsey Jose IV repair on 05/30/2016 Was in ICU following surgery and then in Tele s/p removal NG tube and chest tube removal Clinically much better now 06/04/16 Will have Liquid diet till of this month Barium Swallow did show lower Esophageal narrowing likely due to post surgical edema Belching is improved Tolerating soft diet and ready to be discharged Hypoxemia intermittent SOB :In and out of Telemetry unit CXR-no significant finding bur may have infiltration /Pneumonia Started on IV Clinda ,Nebs and Mucomyst Evaluated by Thoracic Surgery Transferred to Tele Condition improved a lot Did not need Bronchoscopy Appreciate Pulmonary input Clinically much better today Transferred back to floor and start vigorous PT Advised more participation with Physical therapy Hx brie sylvester Was on amiodarone drip as patient is npo Restarted on po amiodarone, dose as per cardiology. Clinically stable and the rate is controlled Continue Amiodarone HTN Restarted po meds Lopressor and clonidine BP is still running high at times iv hydralazine prn Nutrition Started on liquid diet and will continue till of this month Can advance diet as tolerated Now with Soft diet Thrombocytopenia Was placed on Lovenox post surgery which will be stopped f/u HIT studies-negative Improved Start SQ Heparin 06/09/16 Hospital course so far: Intial presentation with ACUTE HYPOXIC RESPIRATORY FAILURE, LIKELY MULTIFACTORIAL DUE TO ACUTE DIASTOLIC CHF AND/OR COPD EXACERBATION Presented with cough and SOB x 3 days; influenza outbreak at long-term however patient has been on prophylactic Tamilfu since 05/05 87% on room air on arrival, improved with oxygen 2L via NC Treated with steroids, Lasix and abx ECHO did not show any significant change compared with prior test Appreciate Cardiology input Cardiology started on lower dose Losartan which was stopped secondary to arf and hyperkalemia Requiring oxygen while sleeping on nocturna pulse ox study Prednisone on a tapering dose Appreciate Pulmonary input MITRAL VALVE ANOMALY ECHO::ECHO:: * Sinus rhythm was present during the echocardiogram. * There is a 0.6cm x 0.6cm mobile echodensity attached to ventricular surface of the mitral valve annulus near the left ventricular outflow tract. * Calcified mitral apparatus. * The aortic valve is moderately calcified. * Mild valvular aortic stenosis. * Moderate aortic regurgitation. * The left ventricular wall motion is normal. * Ejection Fraction = 60-65%. * Grade I diastolic dysfunction, (abnormal relaxation pattern). * Compared to the most recent echocardiogram, the echodensity is unchanged. cardiology on board stable cardiac condition ATRIAL FIBRILLATION on amiodarone and metoprolol rate controlled Not anticoagulated due to hx of hemorrhagic pericardial effusion and subdural hematoma s/p fall was on amiodarone drip post surgery back on po amiodarone maintenance dose SSS S/P PACER no acute issues ARF' baseline cr 1.2 to 1.3 Monitor labs. DM hgb a1c 7.0 03/2016 oral agents on hold. SSI while hospitalized will monitor GERD, HIATAL HERNIA on PPI/H2 filipe HYPOTHYROIDISM on levothyroxine DEPRESSION on sertraline DVT PROPHYLAXIS Now on Heparin and Coumadin CODE STATUS DNR DISPO: social service for d/c planning Continue PT/OT Will need placement-Rehab placement Vital Signs: Date Time Temp Pulse Resp B/P Pulse Ox O2 Delivery O2 Flow Rate FiO2 06/21/16 15:40 64 18 94 Nasal Cannula 2.0 06/21/16 14:17 36.8 60 20 118/69 97 4.0 06/21/16 12:07 59 20 98 Nasal Cannula 4.0 06/21/16 08:00 97 Nasal Cannula 3.0 06/21/16 07:33 36.6 60 22 142/66 97 Nasal Cannula 3.0 06/21/16 05:40 60 20 95 Nasal Cannula 3.0 06/21/16 04:44 96 Nasal Cannula 4.0 06/21/16 01:05 Nasal Cannula 3.0 06/20/16 23:24 36.4 56 18 147/74 100 3.0 Lab Results: Results Past 24 Hours Test 06/20/16 19:50 06/21/16 05:16 06/21/16 07:08 06/21/16 11:33 Range/Units Bedside Glucose 162 135 158 70-90 mg/dl Prothrombin Time 12.7 9.0-12.0 SECONDS Prothromb Time International Ratio 1.2 0.9-1.1 Test 06/21/16 14:29 06/21/16 15:20 06/21/16 16:06 Range/Units Prothrombin Time 13.7 9.0-12.0 SECONDS Prothromb Time International Ratio 1.3 0.9-1.1 Creatinine 0.70 0.60-1.20 mg/dl Est Creatinine Clear Calc Drug Dose 68.9 ml/min Estimated GFR () 94.2 Estimated GFR (Non- 81.3 Bedside Glucose 181 70-90 mg/dl
[2016-06-22] VITALS (11 sets, daily range): BP systolic 104–165; BP diastolic 52–76; PULSE 59–75; TEMP 36.7–36.9; O2SAT 90–100
[2016-06-22] MEDS: LEVOTHYROXINE 50 MCG TAB PO SCH (05:36)
[2016-06-22 06:00] LABS: HEMATOCRIT 26.6 % (37-47); MEAN CELL VOLUME 100.8 fL (80-100); MEAN CORPUSCULAR HEMOGLOBIN 30.3 pg (25-34); MEAN CORPUSCULAR HGB CONC 30.1 g/dl (32-36); MEAN PLATELET VOLUME 8.5 fL (7.4-10.4); PLATELET COUNT 153 K/uL (130-400); RED BLOOD COUNT 2.64 M/uL (4.2-5.4); WHITE BLOOD COUNT 7.64 K/uL (4.8-10.8)
[2016-06-22 06:16] LABS: INR 1.4 (0.9-1.1); PROTHROMBIN TIME (PATIENT) 15.4 SECONDS (9.0-12.0)
[2016-06-22 06:34] LABS: CALCIUM 8.1 mg/dl (8.5-10.1); CREATININE 0.79 mg/dl (0.60-1.20); MAGNESIUM 2.1 mg/dl (1.8-2.4); PHOSPHORUS 3.2 mg/dl (2.5-4.9); POTASSIUM 3.4 mmol/L (3.5-5.1)
[2016-06-22] MEDS: ALBUT/IPRATROP 3MG/0.5MG NEB 3 ML VIAL INH PRN ×4 (08:05→20:09)
--- NOTE | 2016-06-22 08:36 | Surgery Progress Note ---
Subjective Date of Service: Jun 22, 2016. Pt. denies CP or SOB. No N/V. Discussed with staff at bedside--pt. has limited mobility and has not sid readily participating with PT/OT/mobilization attempts. Objective Vitals Date Time Temp Pulse Resp B/P Pulse Ox O2 Delivery O2 Flow Rate FiO2 06/22/16 08:05 74 12 90 Nasal Cannula 4.0 06/22/16 07:49 60 16 165/76 100 Nasal Cannula 2.0 06/22/16 00:10 36.9 60 18 134/69 100 2.0 06/22/16 00:00 Nasal Cannula 2.0 06/21/16 19:20 68 18 94 Nasal Cannula 2.0 06/21/16 15:40 64 18 94 Nasal Cannula 2.0 06/21/16 14:17 36.8 60 20 118/69 97 4.0 06/21/16 12:07 59 20 98 Nasal Cannula 4.0 Physical Exam General: + well developed, + well nourished CV: + RRR Pulmonary: + pertinent finding (decreased at bases), No accessory muscle use, No respiratory distress Assessment & Plan 80 year old female with hiatal hernia -surgical repair performed (05/30/16) -post-op swallowing evaluation did not demonstrate aspiration -due to post-op reflux symptoms pt. has remained on PPI: -carafate added (06/15/16) -diet has been advanced (pt. not allowed to have food that need to be chewed for at least 1 more week) -continue mobilization attempts -discussed with pt. the importance of mobilization UE DVT (RIGHT) -discussed with primary service: -OK for full anticoagulation
[2016-06-22] MEDS: INSULIN ASPART 100 UNITS/ML 3 ML PEN SC SCH ×4 (09:16→20:24)
[2016-06-22] MEDS: INSULIN GLARGINE SOLOSTAR 100 UNITS/ML 3 ML PEN SC SCH (09:17)
[2016-06-22] MEDS: SUCRALFATE 1 GM/10 ML UDC PO SCH ×4 (09:22→19:39)
[2016-06-22] MEDS: CLONIDINE HCL 0.1 MG TAB PO SCH ×2 (09:28→19:39)
[2016-06-22] MEDS: AMIODARONE 200 MG TAB PO SCH (09:29)
[2016-06-22] MEDS: DOCUSATE SODIUM 100 MG CAP PO SCH ×2 (09:29→19:39)
[2016-06-22] MEDS: METOPROLOL TARTRATE 50 MG TAB PO SCH ×2 (09:30→19:38)
[2016-06-22] MEDS: PANTOprazole SOD 40 MG TAB PO SCH ×2 (09:31→19:39)
[2016-06-22] MEDS: ENOXAPARIN 100 MG/1ML SYR SQ SCH ×2 (10:12→20:25)
[2016-06-22] MEDS ORDERED: POTASSIUM CHLORIDE 20 MEQ/15 ML UDC PO ONE (12:00)
--- NOTE | 2016-06-22 12:49 | DIAGNOSTIC IMAGING REPORT ---
CHEST ONE VIEW PORTABLE CLINICAL HISTORY: Productive cough. COMPARISON STUDY: Chest CT June 12, 2016 and chest radiograph June 20, 2016. FINDINGS: A right PICC and dual lead left subclavian pacer are unchanged in position. Moderate cardiomegaly is unchanged. There is no pneumothorax. Pulmonary vascular congestion persists. Left basilar opacity with a left pleural effusion is similar to prior exam. There is a small right pleural effusion. IMPRESSION: 1. No change in appearance of the chest. Persistent bilateral pleural effusions and left basilar opacity which could reflect atelectasis or consolidation. 2. Pulmonary vascular congestion. Electronically signed by: John Quesada M.D. 06/22/2016 12:48 PM Dictated Date/Time: 06/22/2016 12:46 PM
--- NOTE | 2016-06-22 13:15 | Pulmonology Progress Note ---
Pulmonary Progress Note Date of Service Jun 22, 2016. Attending Dr. Guadarrama Subjective " I feel terrible today" Patient unable to tell me further. She reports abdominal discomfort but has difficulty describing. No increased dyspnea. Incontinent of urine. Cough after position changes productive of brown sputum. Objective 80-yo female admitted 05/13/16 with dyspnea and cough. She was treated for COPD and diastolic CHF exacerbation with antibiotic, O2, bronchodilators and diuresis. She improved clinically but continued c/o symptoms associated with hiatal hernia. Ultimately, she underwent left thoracotomy with hernia repair admitted to [facility] post-op. She did relatively well with small left pneumothorax and CO2 retention felt to be secondary to post-op weakness. Amiodarone gtt post-op with conversion to NSR. She was treated briefly with mucolytic. Post-operatively she has struggled with peripheral edema and weakness. 06/19 RUE + DVT in setting of a PICC line and Lovenox initiated. - CT Chest (06/22/16) bilateral pleural effusions with loculations on the left and signs of mucus on the tracheal posterior wall - Esophagram (04/01/17) pooling of contrast in the distal esophagus with delayed passage - Video Swallow (06/08/16) no aspiration noted but continued delayed emptying PMHx: diastolic dysfunction (echocardiogram 05/05/16: EF 60-65%, grade I diastolic dysfunction), mitral valve abnormality, CKD III, SSS s/p pacemaker, paroxysmal atrial fibrillation (off AC s/p mechanical fall), DLD, h/o subdural hematoma s/p fall 11/2015, h/o 5mm pulmonary BOWEN, potts esophagus. Former tobacco: 7-year, 1 pack / week. Today: - Afebrile, HD stable on 2LPM - WBC/Hgb/Hct/Plts: 7.64/8/26.6/153 - CO2: 35 - 06/21 episode hemoptysis - Lovenox held Physical Exam: Constitutional: Obese chronically ill appearing elderly female. No acute distress. Head: + facial symmetry Eyes: EOMi, PERRLA, no conjunctival injection Mouth: Moist mucous membranes. No erythema, exudate, or post nasal gtt Neck: Trachea midline. No adenopathy or masses Respiratory: Non-labored shallow respirations. Diminished at bases. No wheeze. No clubbing or cyanosis. Cardiovascular: RRR, no MRG. +2 radial pulses. <1s capillary refill. Abdomen: soft, active bowel sounds. Right sided hernia visible. Non-tender to palpation. Palpation provokes belching. Integumentary: no rashes, or ecchymosis MSK/Extremities: Moving and developed symmetrically. UE/LE edema +2 pitting LE bilaterally with venous stasis changes. Generalized weakness Neurologic: A&O, data recall in-tact. Appropriate affect. Assessment & Plan 80-year-old female with prolonged hospital course and continued bilateral effusion: Lt > Rt: 1. Dyspnea with productive cough: Multifactorial with reactive airway disease, deconditioning, and diastolic dysfunction - Flutter and expectorant to aid in mucoid mobilization - CXR today 2. Generalized weakness and abdominal pain with h/o incontinence: - KUB and UA/culture Patient reviewed and plan agreed upon. Data Medications: Current Inpatient Medications Medications (Trade) Dose Ordered Sig/Srinivas Route Start Time Stop Time Status Last Admin Dose Admin Ipratropium [place] (Atrovent 0.02% 0.5MG/2.5ML Neb) 0.5 mg Q6R PRN INH 05/26/16 15:15 06/25/16 15:14 06/13/16 16:06 0.5 MG Levalbuterol (Xopenex 1.25MG/ 0.5ML Neb) 1.25 mg Q6R PRN INH 05/26/16 15:15 06/25/16 15:14 06/13/16 16:06 1.25 MG Albuterol/ Ipratropium (Duoneb) 3 ml Q2H PRN INH 06/01/16 09:30 07/01/16 09:29 06/22/16 11:58 3 ML Heparin Sodium (Porcine) (Heparin 10 Unit/ ml 5 ml Flush) 5 ml PRN PRN FLUSH 06/02/16 13:15 07/02/16 13:14 06/22/16 05:33 5 ML Pantoprazole Sodium (Protonix Tab) 40 mg BID PO 06/03/16 21:00 07/03/16 20:59 06/22/16 09:31 40 MG Metoprolol Tartrate (Lopressor Tab) 50 mg BID PO 06/03/16 21:00 07/03/16 20:59 06/22/16 09:30 50 MG Hydralazine HCl (HydrALAZINE INJ) 5 mg Q6 PRN IV. 06/03/16 20:15 07/03/16 20:14 Insulin Aspart (novoLOG ASPART) SLIDING SCALE G... ACHS SC 06/03/16 21:00 06/29/16 17:59 06/22/16 09:16 3 UNITS Albuterol Sulfate (Ventolin 0.083% 2.5MG/3ML Neb) 2.5 mg Q6R PRN INH 06/05/16 11:30 07/05/16 11:29 06/21/16 12:07 2.5 MG Prednisone (PredniSONE TAB) 10 mg DAILY PO 06/07/16 09:00 07/07/16 08:59 06/22/16 09:31 10 MG Heparin Sodium (Porcine) (Heparin 10 Unit/ ml 5 ml Flush) 5 ml PRN PRN FLUSH 06/08/16 11:15 07/08/16 11:14 06/21/16 06:49 5 ML Insulin Glargine (Lantus Solostar Pen) 7 unit DAILY SC 06/10/16 08:00 07/10/16 07:59 06/22/16 09:17 7 UNIT Amiodarone HCl (Cordarone Tab) 200 mg QAM PO 06/13/16 08:00 07/13/16 07:59 06/22/16 09:29 200 MG Ondansetron HCl (Zofran Inj) 4 mg Q6H PRN IV 06/13/16 06:30 07/13/16 06:29 06/17/16 15:51 4 MG Acetaminophen (Tylenol Tab) 650 mg Q4H PRN PO 06/13/16 09:30 07/13/16 09:29 06/17/16 08:12 650 MG Clonidine HCl (Catapres Tab) 0.1 mg Q6H PRN PO 06/13/16 17:30 07/13/16 17:29 06/15/16 08:06 0.1 MG Levothyroxine Sodium (Synthroid Tab) 50 mcg DAILYBB PO 06/15/16 06:30 07/15/16 06:29 06/22/16 05:36 50 MCG Sucralfate (Carafate Susp) 1 gm QID PO 06/15/16 12:00 07/15/16 11:59 Tramadol HCl (Ultram Tab) 50 mg Q6H PRN PO 06/17/16 18:15 07/17/16 18:14 06/20/16 21:08 50 MG Clonidine HCl (Catapres Tab) 0.1 mg BID PO 06/17/16 22:00 07/17/16 21:59 06/22/16 09:28 0.1 MG Docusate Sodium (coLACE CAP) 100 mg BID PO 06/20/16 20:00 07/20/16 19:59 06/22/16 09:29 100 MG Warfarin Sodium (Coumadin Tab) 5 mg DAILY@16 PO 06/20/16 16:00 07/20/16 15:59 06/21/16 16:03 5 MG Enoxaparin Sodium (Lovenox Inj) 100 mg Q12 SQ 06/20/16 18:00 07/20/16 17:59 06/22/16 10:12 100 MG I & O: 24-Hour Column 06/22/16 07:59 Intake Total 635 ml Balance 635 ml Vital Signs: Date Time Temp Pulse Resp B/P Pulse Ox O2 Delivery O2 Flow Rate FiO2 06/22/16 11:59 74 12 93 Nasal Cannula 4.0 06/22/16 10:15 36.7 158/67 06/22/16 09:41 Nasal Cannula 2.0 06/22/16 09:39 62 06/22/16 08:05 74 12 90 Nasal Cannula 4.0 06/22/16 07:49 60 16 165/76 100 Nasal Cannula 2.0 06/22/16 07:40 Nasal Cannula 4.0 06/22/16 00:10 36.9 60 18 134/69 100 2.0 06/22/16 00:00 Nasal Cannula 2.0 06/21/16 19:20 68 18 94 Nasal Cannula 2.0 06/21/16 15:40 64 18 94 Nasal Cannula 2.0 06/21/16 14:17 36.8 60 20 118/69 97 4.0 Laboratory Results: Last 24 Hours Test 06/21/16 14:29 06/21/16 15:20 06/21/16 16:06 06/21/16 20:12 Prothrombin Time 13.7 SECONDS Prothromb Time International Ratio 1.3 Creatinine 0.70 mg/dl Est Creatinine Clear Calc Drug Dose 68.9 ml/min Estimated GFR () 94.2 Estimated GFR (Non- 81.3 Bedside Glucose 181 mg/dl 147 mg/dl Test 06/22/16 05:08 06/22/16 07:29 06/22/16 11:35 White Blood Count 7.64 K/uL Red Blood Count 2.64 M/uL Hemoglobin 8.0 g/dL Hematocrit 26.6 % Mean Corpuscular Volume 100.8 fL Mean Corpuscular Hemoglobin 30.3 pg Mean Corpuscular Hemoglobin Concent 30.1 g/dl RDW Standard Deviation 66.8 fL RDW Coefficient of Variation 18.0 % Platelet Count 153 K/uL Mean Platelet Volume 8.5 fL Prothrombin Time 15.4 SECONDS Prothromb Time International Ratio 1.4 Sodium Level 145 mmol/L Potassium Level 3.4 mmol/L Chloride Level 104 mmol/L Carbon Dioxide Level 35 mmol/L Anion Gap 6.0 mmol/L Blood Urea Nitrogen 15 mg/dl Creatinine 0.79 mg/dl Est Creatinine Clear Calc Drug Dose 61.1 ml/min Estimated GFR () 81.4 Estimated GFR (Non- 70.2 BUN/Creatinine Ratio 19.0 Random Glucose 97 mg/dl Calcium Level 8.1 mg/dl Phosphorus Level 3.2 mg/dl Magnesium Level 2.1 mg/dl Bedside Glucose 104 mg/dl 154 mg/dl
--- NOTE | 2016-06-22 13:36 | DIAGNOSTIC IMAGING REPORT ---
KUB HISTORY: Generalized abdominal pain COMPARISON: KUB 05/17/2016. FINDINGS: No dilated loops of small bowel to suggest an obstruction. Pacemaker wires are noted. Prior cholecystectomy. Large amount well-formed stool seen within the colon and rectum. This includes a 7.6 cm stool ball at the rectum. The heart remains enlarged. No renal calculi. No ureteral calculi. No pneumoperitoneum or pneumatosis. IMPRESSION: 1. Large amount of stool within the colon and rectum. This is similar to the prior study. 2. No evidence for bowel obstruction. Electronically signed by: Anjel Bear M.D. 06/22/2016 1:35 PM Dictated Date/Time: 06/22/2016 1:33 PM
--- NOTE | 2016-06-22 14:55 | Progress Note ---
Internal Med Progress Note Date of Service: Jun 22, 2016. Provider Documentation: SUBJECTIVE: The patient was seen and examined Generally weak and lethargic No SOB today Does not feel any better OBJECTIVE: Vital Signs-as noted below Exam: General-No distress at rest Generally weak and lethargic Eyes-Normal ENT-normal Neck-supple Lungs-Decreased breath sound bilaterally More on the left base ,no crackles Heart-Irregular,no murmur Abdomen-Soft,huge ventral hernia ,no obstruction Extremities-Trace Edema both upper and Lower extremities Right Upper Extremity is swollen Neuro-AAOx3 Lab data as noted below. ASSESSMENT & PLAN: 80y F with significant heart history and valve issues admitted for increased work of breathing 2/2 CHF exacerbation and copd exacerbation. ACUTE DVT , RIGHT UPPER ARM -Doppler US: 1. Interval healing right-sided PICC catheter 2. Right upper extremity DVT with involvement of subclavian, axillary, brachial, basilic and cephalic veins. - discussed with Cardiology regarding history of pericardial hemorrhage in 2014 associated with PM placement, ok to anticoagulate has history of subdural hemorrhage in 2015 s/p mechanical fall, repeat CT head March 2016 showed resolution - will start Heparin full dose -Hematology consult -check Leg Dopplers to r/o DVT -Has been on Heparin and Coumadin -was changed to Lovenox and Coumadin -has had one episode of questionable hemoptysis-hold Lovenox now -no more Hemoptysis -Lovenox restarted Severe Belching-for a long time Secondary huge hiatal hernia s/p status post left thoracotomy with Belsey Jose IV repair on 05/30/2016 Was in ICU following surgery and then in Tele s/p removal NG tube and chest tube removal Clinically much better now 06/04/16 Will have Liquid diet till of this month Barium Swallow did show lower Esophageal narrowing likely due to post surgical edema Belching is improved Tolerating soft diet and ready to be discharged Hypoxemia intermittent SOB :In and out of Telemetry unit CXR-no significant finding bur may have infiltration /Pneumonia Started on IV Clinda ,Nebs and Mucomyst Evaluated by Thoracic Surgery Transferred to Tele Condition improved a lot Did not need Bronchoscopy Appreciate Pulmonary input Clinically much better today Transferred back to floor and start vigorous PT Advised more participation with Physical therapy CXR today Hx of kristina Saeedfib Was on amiodarone drip as patient is npo Restarted on po amiodarone, dose as per cardiology. Clinically stable and the rate is controlled Continue Amiodarone HTN Restarted po meds Lopressor and clonidine BP is still running high at times iv hydralazine prn Nutrition Started on liquid diet and will continue till of this month Can advance diet as tolerated Now with Soft diet Medically stable to be discharged Thrombocytopenia Was placed on Lovenox post surgery which will be stopped f/u HIT studies-negative Improved and normalized Start SQ Heparin 06/09/16 Hospital course so far: Intial presentation with ACUTE HYPOXIC RESPIRATORY FAILURE, LIKELY MULTIFACTORIAL DUE TO ACUTE DIASTOLIC CHF AND/OR COPD EXACERBATION Presented with cough and SOB x 3 days; influenza outbreak at halfway however patient has been on prophylactic [place] since 05/05 87% on room air on arrival, improved with oxygen 2L via NC Treated with steroids, Lasix and abx ECHO did not show any significant change compared with prior test Appreciate Cardiology input Cardiology started on lower dose Losartan which was stopped secondary to arf and hyperkalemia Requiring oxygen while sleeping on nocturna pulse ox study Prednisone on a tapering dose Appreciate Pulmonary input MITRAL VALVE ANOMALY ECHO::ECHO:: * Sinus rhythm was present during the echocardiogram. * There is a 0.6cm x 0.6cm mobile echodensity attached to ventricular surface of the mitral valve annulus near the left ventricular outflow tract. * Calcified mitral apparatus. * The aortic valve is moderately calcified. * Mild valvular aortic stenosis. * Moderate aortic regurgitation. * The left ventricular wall motion is normal. * Ejection Fraction = 60-65%. * Grade I diastolic dysfunction, (abnormal relaxation pattern). * Compared to the most recent echocardiogram, the echodensity is unchanged. cardiology on board stable cardiac condition ATRIAL FIBRILLATION on amiodarone and metoprolol rate controlled Not anticoagulated due to hx of hemorrhagic pericardial effusion and subdural hematoma s/p fall was on amiodarone drip post surgery back on po amiodarone maintenance dose SSS S/P PACER no acute issues ARF' baseline cr 1.2 to 1.3 Monitor labs. DM hgb a1c 7.0 03/2016 oral agents on hold. SSI while hospitalized will monitor GERD, HIATAL HERNIA on PPI/H2 filipe HYPOTHYROIDISM on levothyroxine DEPRESSION on sertraline DVT PROPHYLAXIS Now on Heparin and Coumadin CODE STATUS DNR DISPO: social service for d/c planning Continue PT/OT Will need placement-Rehab placement Vital Signs: Date Time Temp Pulse Resp B/P Pulse Ox O2 Delivery O2 Flow Rate FiO2 06/22/16 11:59 74 12 93 Nasal Cannula 4.0 06/22/16 10:15 36.7 158/67 06/22/16 09:41 Nasal Cannula 2.0 06/22/16 09:39 62 06/22/16 08:05 74 12 90 Nasal Cannula 4.0 06/22/16 07:49 60 16 165/76 100 Nasal Cannula 2.0 06/22/16 07:40 Nasal Cannula 4.0 06/22/16 00:10 36.9 60 18 134/69 100 2.0 06/22/16 00:00 Nasal Cannula 2.0 06/21/16 19:20 68 18 94 Nasal Cannula 2.0 06/21/16 15:40 64 18 94 Nasal Cannula 2.0 Lab Results: Results Past 24 Hours Test 06/21/16 15:20 06/21/16 16:06 06/21/16 20:12 06/22/16 05:08 Range/Units Creatinine 0.70 0.79 0.60-1.20 mg/dl Est Creatinine Clear Calc Drug Dose 68.9 61.1 ml/min Estimated GFR () 94.2 81.4 Estimated GFR (Non- 81.3 70.2 Bedside Glucose 181 147 70-90 mg/dl White Blood Count 7.64 4.8-10.8 K/uL Red Blood Count 2.64 4.2-5.4 M/uL Hemoglobin 8.0 12.0-16.0 g/dL Hematocrit 26.6 37-47 % Mean Corpuscular Volume 100.8 80-100 fL Mean Corpuscular Hemoglobin 30.3 25-34 pg Mean Corpuscular Hemoglobin Concent 30.1 32-36 g/dl RDW Standard Deviation 66.8 36.4-46.3 fL RDW Coefficient of Variation 18.0 11.5-14.5 % Platelet Count 153 130-400 K/uL Mean Platelet Volume 8.5 7.4-10.4 fL Prothrombin Time 15.4 9.0-12.0 SECONDS Prothromb Time International Ratio 1.4 0.9-1.1 Sodium Level 145 136-145 mmol/L Potassium Level 3.4 3.5-5.1 mmol/L Chloride Level 104 98-107 mmol/L Carbon Dioxide Level 35 21-32 mmol/L Anion Gap 6.0 3-11 mmol/L Blood Urea Nitrogen 15 7-18 mg/dl BUN/Creatinine Ratio 19.0 10-20 Random Glucose 97 70-99 mg/dl Calcium Level 8.1 8.5-10.1 mg/dl Phosphorus Level 3.2 2.5-4.9 mg/dl Magnesium Level 2.1 1.8-2.4 mg/dl Test 06/22/16 07:29 06/22/16 11:35 06/22/16 14:30 Range/Units Bedside Glucose 104 154 70-90 mg/dl Microbiology Results 06/22/16 Urine Culture, Received Pending
[2016-06-22 14:58] LABS: INR 1.7 (0.9-1.1); PROTHROMBIN TIME (PATIENT) 18.6 SECONDS (9.0-12.0)
[2016-06-22] MEDS: WARFARIN SOD 5 MG TAB PO SCH (17:20)
[2016-06-22] MEDS: GUAIFENESIN 600 MG TABCR PO SCH (20:25)
[2016-06-23] VITALS (9 sets, daily range): BP systolic 100–199; BP diastolic 57–80; PULSE 60–76; TEMP 36–37.2; O2SAT 90–98
[2016-06-23] MEDS: ALBUT/IPRATROP 3MG/0.5MG NEB 3 ML VIAL INH PRN ×5 (03:17→21:48)
[2016-06-23] MEDS: LEVOTHYROXINE 50 MCG TAB PO SCH (05:47)
[2016-06-23 06:26] LABS: INR 2.2 (0.9-1.1); PROTHROMBIN TIME (PATIENT) 24.1 SECONDS (9.0-12.0)
[2016-06-23 06:56] LABS: CREATININE 0.78 mg/dl (0.60-1.20)
[2016-06-23] MEDS: DOCUSATE SODIUM 100 MG CAP PO SCH ×2 (07:48→20:42)
[2016-06-23] MEDS: CLONIDINE HCL 0.1 MG TAB PO SCH ×2 (07:48→20:43)
[2016-06-23] MEDS: METOPROLOL TARTRATE 50 MG TAB PO SCH ×2 (07:49→20:44)
[2016-06-23] MEDS: AMIODARONE 200 MG TAB PO SCH (07:49)
[2016-06-23] MEDS: GUAIFENESIN 600 MG TABCR PO SCH ×2 (07:49→20:42)
[2016-06-23] MEDS: PANTOprazole SOD 40 MG TAB PO SCH ×2 (07:49→20:42)
[2016-06-23] MEDS: ENOXAPARIN 100 MG/1ML SYR SQ SCH ×2 (07:50→20:46)
[2016-06-23] MEDS: SUCRALFATE 1 GM/10 ML UDC PO SCH ×4 (07:50→20:00)
[2016-06-23] MEDS: ONDANSETRON INJ 2 MG/ML 2 ML VIAL IV PRN ×3 (07:52→19:26)
[2016-06-23] MEDS ORDERED: FUROSEMIDE INJ 40 MG in SYRINGE 0 ML IV ONE (08:30)
[2016-06-23] MEDS ORDERED: GUAIFENESIN SUGAR FREE 100 MG/5 ML UDC PO ONE (08:30)
[2016-06-23] MEDS: INSULIN GLARGINE SOLOSTAR 100 UNITS/ML 3 ML PEN SC SCH (08:40)
[2016-06-23] MEDS: INSULIN ASPART 100 UNITS/ML 3 ML PEN SC SCH ×4 (09:00→20:46)
[2016-06-23] MEDS: TRAMADOL HCL 50 MG TAB PO PRN (10:08)
[2016-06-23] MEDS ORDERED: NURSING VERBAL MED ORDER ONE ×2 (12:15→19:15)
--- NOTE | 2016-06-23 13:00 | PROGRESS NOTE ---
DATE: 06/23/2016 DATE: 06/23/2016. SUBJECTIVE: The patient reports that she is feeling worse today. Nurse was in the room with her and the patient apparently had some vomiting. The patient also states that she has not had a bowel movement for a couple of days. She states that she is having a little bit of abdominal pain but not too bad. She states that she feels full. She states that it is affecting her breathing. She does not feel like she gets a deep breath in. She is not really having any cough or congestion at this time. OBJECTIVE: GENERAL: The patient is an 80-year-old female lying in bed, appears not to be feeling well. She is interactive and cooperative. She is alert. VITAL SIGNS: Temp 37.2, pulse 60, respirations 16, blood pressure is 107/65, pulse ox 98% on 4 liters. HEAD, EYES, EARS, NOSE, AND THROAT: Normocephalic, atraumatic. Pupils equal, round and react to light and accommodation. The patient is pale in color at this time as well. [place] moist gingival and buccal mucosa. NECK: Supple. No mass, no adenopathy or bruit. CHEST: Difficult to ascertain, but patient does have some dullness in the bases bilaterally. Decreased breath sounds bilaterally. I could not appreciate any rales or rhonchi at this time. CARDIOVASCULAR: Regular rate and rhythm. There are no murmurs, gallops or rubs. ABDOMEN: Bowel sounds present. She does have some tenderness to palpation. No guarding, rigidity or organomegaly noted. EXTREMITIES: Trace edema, no erythema. LABORATORY DATA: Urine from yesterday is not back yet. Sputum is not back yet. No new radiologic data. IMPRESSION: An 80-year-old female status post hiatal hernia repair with persistent atelectasis and now bilateral pleural effusion, who is having some vomiting today and has not had a bowel movement. My suspicion is that patient probably has some bowel obstruction or stool retention. At this point, would like to get an updated abdominal x-ray and chest x-ray and if it is in fact stool retention then the patient will need something to help with her bowels. All she has ordered at this point is Colace, otherwise for now will continue to follow. I am not going to make any adjustments in her medication until we see the results of the imaging.
--- NOTE | 2016-06-23 15:37 | DIAGNOSTIC IMAGING REPORT ---
ABDOMEN 2VIEW W/PA CHEST RTN CLINICAL HISTORY: vomiting COMPARISON STUDY: 06/22/2016 FINDINGS: The erect chest reveals cardiac enlargement. There are bilateral pleural effusions. There is radiographic evidence of congestive failure. There are bibasal airspace opacities, likely representing edema or atelectasis. There is a left subclavian dual-chamber central venous pacemaker present. There is no free air. Supine and decubitus views the abdomen reveal opaque material within the bowel. There is evidence of significant fecal retention. IMPRESSION: 1. No evidence of bowel obstruction. No evidence of free air 2. Large amount of stool within the colon 3. Congestive failure with bilateral pleural effusions and bibasal airspace opacities Electronically signed by: Yvan Gupta M.D. 06/23/2016 3:35 PM Dictated Date/Time: 06/23/2016 3:34 PM
[2016-06-23 15:59] LABS: INR 2.9 (0.9-1.1); PROTHROMBIN TIME (PATIENT) 32.1 SECONDS (9.0-12.0)
--- NOTE | 2016-06-23 17:25 | Progress Note ---
Internal Med Progress Note Date of Service: Jun 23, 2016. Provider Documentation: SUBJECTIVE: The patient was seen and examined Generally weak and lethargic Cough and attack of SOB this morning Remains weak and lethargic OBJECTIVE: Vital Signs-as noted below Exam: General-No distress at rest Generally weak and lethargic Eyes-Normal ENT-normal Neck-supple Lungs-Decreased breath sound bilaterally More on the left base ,no crackles Heart-Irregular,no murmur Abdomen-Soft,huge ventral hernia ,no obstruction Extremities-Trace Edema both upper and Lower extremities Right Upper Extremity is swollen Neuro-AAOx3 Lab data as noted below. ASSESSMENT & PLAN: 80y F with significant heart history and valve issues admitted for increased work of breathing 2/2 CHF exacerbation and copd exacerbation. Hypoxemia intermittent SOB :In and out of Telemetry unit CXR-no significant finding bur may have infiltration /Pneumonia Started on IV Clinda ,Nebs and Mucomyst Evaluated by Thoracic Surgery Transferred to Tele Condition improved a lot Did not need Bronchoscopy Appreciate Pulmonary input Clinically much better today Transferred back to floor and start vigorous PT Still having intermittent attacks of SOB Received 40 of Lasix this morning Feels better following that ACUTE DVT , RIGHT UPPER ARM -Doppler US: 1. Interval healing right-sided PICC catheter 2. Right upper extremity DVT with involvement of subclavian, axillary, brachial, basilic and cephalic veins. - discussed with Cardiology regarding history of pericardial hemorrhage in 2014 associated with PM placement, ok to anticoagulate has history of subdural hemorrhage in 2015 s/p mechanical fall, repeat CT head March 2016 showed resolution - will start Heparin full dose -Hematology consult -check Leg Dopplers to r/o DVT -Has been on Heparin and Coumadin -was changed to Lovenox and Coumadin -has had one episode of questionable hemoptysis-hold Lovenox now -no more Hemoptysis -Lovenox restarted -INR therapeutic today -D/C Lovenox tomorrow if INR >2 Severe Belching-for a long time Secondary huge hiatal hernia s/p status post left thoracotomy with Belsey Jose IV repair on 05/30/2016 Was in ICU following surgery and then in Tele s/p removal NG tube and chest tube removal Clinically much better now 06/04/16 Will have Liquid diet till of this month Barium Swallow did show lower Esophageal narrowing likely due to post surgical edema Belching is improved Tolerating soft diet and ready to be discharged Will have occasional attacks of belching and SOB as observed during her hospital stay Needs to be managed symptomatically Hx of a .joey Was on amiodarone drip as patient is npo Restarted on po amiodarone, dose as per cardiology. Clinically stable and the rate is controlled Continue Amiodarone HTN Restarted po meds Lopressor and clonidine BP is still running high at times iv hydralazine prn Nutrition Started on liquid diet and will continue till of this month Can advance diet as tolerated Now with Soft diet Medically stable to be discharged Thrombocytopenia Was placed on Lovenox post surgery which will be stopped f/u HIT studies-negative Improved and normalized Start SQ Heparin 06/09/16 Hospital course so far: Intial presentation with ACUTE HYPOXIC RESPIRATORY FAILURE, LIKELY MULTIFACTORIAL DUE TO ACUTE DIASTOLIC CHF AND/OR COPD EXACERBATION Presented with cough and SOB x 3 days; [facility] outbreak at [facility] however patient has been on prophylactic Tamilfu since 05/05 87% on room air on arrival, improved with oxygen 2L via NC Treated with steroids, Lasix and abx ECHO did not show any significant change compared with prior test Appreciate Cardiology input Cardiology started on lower dose Losartan which was stopped secondary to arf and hyperkalemia Requiring oxygen while sleeping on nocturna pulse ox study Prednisone on a tapering dose Appreciate Pulmonary input MITRAL VALVE ANOMALY ECHO::ECHO:: * Sinus rhythm was present during the echocardiogram. * There is a 0.6cm x 0.6cm mobile echodensity attached to ventricular surface of the mitral valve annulus near the left ventricular outflow tract. * Calcified mitral apparatus. * The aortic valve is moderately calcified. * Mild valvular aortic stenosis. * Moderate aortic regurgitation. * The left ventricular wall motion is normal. * Ejection Fraction = 60-65%. * Grade I diastolic dysfunction, (abnormal relaxation pattern). * Compared to the most recent echocardiogram, the echodensity is unchanged. cardiology on board stable cardiac condition ATRIAL FIBRILLATION on amiodarone and metoprolol rate controlled Not anticoagulated due to hx of hemorrhagic pericardial effusion and subdural hematoma s/p fall was on amiodarone drip post surgery back on po amiodarone maintenance dose SSS S/P PACER no acute issues ARF' baseline cr 1.2 to 1.3 Monitor labs. DM hgb a1c 7.0 03/2016 oral agents on hold. SSI while hospitalized will monitor GERD, HIATAL HERNIA on PPI/H2 filipe HYPOTHYROIDISM on levothyroxine DEPRESSION on sertraline DVT PROPHYLAXIS Now on Heparin and Coumadin CODE STATUS DNR DISPO: social service for d/c planning Continue PT/OT Will need placement-Rehab placement Vital Signs: Date Time Temp Pulse Resp B/P Pulse Ox O2 Delivery O2 Flow Rate FiO2 06/23/16 15:18 36.0 62 22 100/57 96 Nasal Cannula 4.0 06/23/16 11:40 60 16 98 Nasal Cannula 4.0 06/23/16 10:08 61 107/65 06/23/16 08:00 Nasal Cannula 4.0 06/23/16 07:46 73 186/70 06/23/16 07:39 37.2 76 24 199/80 90 Nasal Cannula 4.0 06/23/16 07:38 60 16 98 Nasal Cannula 4.0 06/23/16 03:17 60 16 98 Nasal Cannula 4.0 06/23/16 00:00 Nasal Cannula 4.0 06/22/16 23:36 36.9 59 20 120/52 98 Nasal Cannula 4.0 06/22/16 20:09 75 16 95 Nasal Cannula 4.0 06/22/16 19:40 Nasal Cannula 4.0 06/22/16 19:37 60 104/65 Lab Results: Results Past 24 Hours Test 06/22/16 20:08 06/23/16 05:50 06/23/16 07:51 06/23/16 11:04 Range/Units Bedside Glucose 208 192 162 70-90 mg/dl Prothrombin Time 24.1 9.0-12.0 SECONDS Prothromb Time International Ratio 2.2 0.9-1.1 Creatinine 0.78 0.60-1.20 mg/dl Est Creatinine Clear Calc Drug Dose 62.5 ml/min Estimated GFR () 82.6 Estimated GFR (Non- 71.3 Test 06/23/16 15:43 06/23/16 16:18 Range/Units Prothrombin Time 32.1 9.0-12.0 SECONDS Prothromb Time International Ratio 2.9 0.9-1.1 Bedside Glucose 157 70-90 mg/dl
[2016-06-23] MEDS: WARFARIN SOD 5 MG TAB PO SCH (17:36)
[2016-06-23] MEDS ORDERED: BISACODYL 10 MG SUPP PR STA (19:23)
[2016-06-24] VITALS (7 sets, daily range): BP systolic 127–138; BP diastolic 55–77; PULSE 56–63; TEMP 36.7–37.1; O2SAT 96–100
[2016-06-24] MEDS ORDERED: NURSING DECISION MEDICATION ORDER SCH (04:45)
[2016-06-24] MEDS ORDERED: MICONAZOLE NITRATE POWDER 43 GM EXT PRN (05:00)
[2016-06-24] MEDS: LEVOTHYROXINE 50 MCG TAB PO SCH (06:15)
[2016-06-24] MEDS: GUAIFENESIN SUGAR FREE 100 MG/5 ML UDC PO PRN (06:26)
[2016-06-24] MEDS: GUAIFENESIN 600 MG TABCR PO SCH ×2 (09:03→20:11)
[2016-06-24] MEDS: ENOXAPARIN 100 MG/1ML SYR SQ SCH (09:03)
[2016-06-24] MEDS: AMIODARONE 200 MG TAB PO SCH (09:03)
[2016-06-24] MEDS: FUROSEMIDE INJ 40 MG in SYRINGE 0 ML IV SCH (09:04)
[2016-06-24] MEDS: SUCRALFATE 1 GM/10 ML UDC PO SCH ×4 (09:04→20:00)
[2016-06-24] MEDS: DOCUSATE SODIUM 100 MG CAP PO SCH ×2 (09:04→20:11)
[2016-06-24] MEDS: CLONIDINE HCL 0.1 MG TAB PO SCH ×2 (09:04→20:10)
[2016-06-24] MEDS: METOPROLOL TARTRATE 50 MG TAB PO SCH ×2 (09:04→20:12)
[2016-06-24] MEDS: ONDANSETRON INJ 2 MG/ML 2 ML VIAL IV PRN (09:11)
[2016-06-24] MEDS: PANTOprazole SOD 40 MG TAB PO SCH ×2 (09:12→20:11)
[2016-06-24] MEDS: INSULIN GLARGINE SOLOSTAR 100 UNITS/ML 3 ML PEN SC SCH (09:14)
[2016-06-24] MEDS: INSULIN ASPART 100 UNITS/ML 3 ML PEN SC SCH ×4 (09:15→21:03)
[2016-06-24] MEDS: ALBUT/IPRATROP 3MG/0.5MG NEB 3 ML VIAL INH PRN ×2 (10:23→21:10)
[2016-06-24 10:43] LABS: HEMATOCRIT 27.2 % (37-47); MEAN CELL VOLUME 100.7 fL (80-100); MEAN CORPUSCULAR HGB CONC 29.8 g/dl (32-36); MEAN PLATELET VOLUME 9.5 fL (7.4-10.4); PLATELET COUNT 174 K/uL (130-400); WHITE BLOOD COUNT 17.12 K/uL (4.8-10.8)
[2016-06-24 11:02] LABS: BUN/CREATININE RATIO 27.4 (10-20); CALCIUM 7.9 mg/dl (8.5-10.1); CREATININE 0.82 mg/dl (0.60-1.20); POTASSIUM 4.3 mmol/L (3.5-5.1)
[2016-06-24] MEDS: TRAMADOL HCL 50 MG TAB PO PRN (15:24)
--- NOTE | 2016-06-24 15:32 | Progress Note ---
Internal Med Progress Note Date of Service: Jun 24, 2016. Provider Documentation: SUBJECTIVE: The patient was seen and examined Generally weak and lethargic Much better this morning Bowel not moved OBJECTIVE: Vital Signs-as noted below Exam: General-No distress at rest Generally weak and lethargic Eyes-Normal ENT-normal Neck-supple Lungs-Decreased breath sound bilaterally Minimal Basilar crackles Heart-Irregular,no murmur Abdomen-Soft,huge ventral hernia ,no obstruction Extremities-Trace Edema both upper and Lower extremities Right Upper Extremity is swollen Neuro-AAOx3 Lab data as noted below. ASSESSMENT & PLAN: 80y F with significant heart history and valve issues admitted for increased work of breathing 2/2 CHF exacerbation and copd exacerbation. Leukocytosis Likely secondary to UTI Urine sensitivity pending Started on Cipro Hypoxemia intermittent SOB :In and out of Telemetry unit CXR-no significant finding bur may have infiltration /Pneumonia Started on IV Clinda ,Nebs and Mucomyst Evaluated by Thoracic Surgery Transferred to Tele Condition improved a lot Did not need Bronchoscopy Appreciate Pulmonary input Clinically much better today Transferred back to floor and start vigorous PT Still having intermittent attacks of SOB Received 40 of Lasix this morning Feels better following that Will need regular small dose of Lasix on discharge ACUTE DVT , RIGHT UPPER ARM-about 6 weeks of treatment -Doppler US: 1. Interval healing right-sided PICC catheter 2. Right upper extremity DVT with involvement of subclavian, axillary, brachial, basilic and cephalic veins. - discussed with Cardiology regarding history of pericardial hemorrhage in 2014 associated with PM placement, ok to anticoagulate has history of subdural hemorrhage in 2015 s/p mechanical fall, repeat CT head March 2016 showed resolution - will start Heparin full dose -Hematology consult -check Leg Dopplers to r/o DVT -Has been on Heparin and Coumadin -was changed to Lovenox and Coumadin -has had one episode of questionable hemoptysis-hold Lovenox now -no more Hemoptysis the next day -Lovenox restarted -INR therapeutic today 06/23/16 -D/C Lovenox tomorrow if INR >2 -Lovenox discontinued -INR 2.9 -continue Coumadin -Coumadin 4 mg daily Severe Belching-for a long time Secondary huge hiatal hernia s/p status post left thoracotomy with Belsey Jose IV repair on 05/30/2016 Was in ICU following surgery and then in Tele s/p removal NG tube and chest tube removal Clinically much better now 06/04/16 Will have Liquid diet till of this month Barium Swallow did show lower Esophageal narrowing likely due to post surgical edema Belching is improved Tolerating soft diet and ready to be discharged Will have occasional attacks of belching and SOB as observed during her hospital stay Needs to be managed symptomatically Hx of a .joey Was on amiodarone drip as patient is npo Restarted on po amiodarone, dose as per cardiology. Clinically stable and the rate is controlled Continue Amiodarone HTN Restarted po meds Lopressor and clonidine BP is still running high at times iv hydralazine prn Nutrition Started on liquid diet and will continue till of this month Can advance diet as tolerated Now with Soft diet Medically stable to be discharged Thrombocytopenia Was placed on Lovenox post surgery which will be stopped f/u HIT studies-negative Improved and normalized Start SQ Heparin 06/09/16 Hospital course so far: Intial presentation with ACUTE HYPOXIC RESPIRATORY FAILURE, LIKELY MULTIFACTORIAL DUE TO ACUTE DIASTOLIC CHF AND/OR COPD EXACERBATION Presented with cough and SOB x 3 days; influenza outbreak at [facility] however patient has been on prophylactic Tamilfu since 05/05 87% on room air on arrival, improved with oxygen 2L via NC Treated with steroids, Lasix and abx ECHO did not show any significant change compared with prior test Appreciate Cardiology input Cardiology started on lower dose Losartan which was stopped secondary to arf and hyperkalemia Requiring oxygen while sleeping on nocturna pulse ox study Prednisone on a tapering dose Appreciate Pulmonary input MITRAL VALVE ANOMALY ECHO::ECHO:: * Sinus rhythm was present during the echocardiogram. * There is a 0.6cm x 0.6cm mobile echodensity attached to ventricular surface of the mitral valve annulus near the left ventricular outflow tract. * Calcified mitral apparatus. * The aortic valve is moderately calcified. * Mild valvular aortic stenosis. * Moderate aortic regurgitation. * The left ventricular wall motion is normal. * Ejection Fraction = 60-65%. * Grade I diastolic dysfunction, (abnormal relaxation pattern). * Compared to the most recent echocardiogram, the echodensity is unchanged. cardiology on board stable cardiac condition ATRIAL FIBRILLATION on amiodarone and metoprolol rate controlled Not anticoagulated due to hx of hemorrhagic pericardial effusion and subdural hematoma s/p fall was on amiodarone drip post surgery back on po amiodarone maintenance dose SSS S/P PACER no acute issues ARF' baseline cr 1.2 to 1.3 Monitor labs. DM hgb a1c 7.0 03/2016 oral agents on hold. SSI while hospitalized will monitor GERD, HIATAL HERNIA on PPI/H2 filipe HYPOTHYROIDISM on levothyroxine DEPRESSION on sertraline DVT PROPHYLAXIS Now on Heparin and Coumadin CODE STATUS DNR DISPO: social service for d/c planning Continue PT/OT Will need placement-Rehab placement Vital Signs: Date Time Temp Pulse Resp B/P Pulse Ox O2 Delivery O2 Flow Rate FiO2 06/24/16 16:00 99 Nasal Cannula 4.0 06/24/16 15:47 37.1 61 18 127/65 98 Nasal Cannula 2.0 06/24/16 10:23 60 20 100 Nasal Cannula 4.0 06/24/16 09:00 Nasal Cannula 4.0 06/24/16 08:20 36.7 60 18 138/58 99 Nasal Cannula 1.0 06/24/16 00:21 37.0 63 16 136/77 100 4.0 06/23/16 23:59 Nasal Cannula 4.0 06/23/16 21:48 68 18 98 Nasal Cannula 4.0 Lab Results: Results Past 24 Hours Test 06/23/16 20:28 06/24/16 07:53 06/24/16 10:27 06/24/16 11:37 Range/Units Bedside Glucose 164 153 201 70-90 mg/dl White Blood Count 17.12 4.8-10.8 K/uL Red Blood Count 2.70 4.2-5.4 M/uL Hemoglobin 8.1 12.0-16.0 g/dL Hematocrit 27.2 37-47 % Mean Corpuscular Volume 100.7 80-100 fL Mean Corpuscular Hemoglobin 30.0 25-34 pg Mean Corpuscular Hemoglobin Concent 29.8 32-36 g/dl RDW Standard Deviation 64.7 36.4-46.3 fL RDW Coefficient of Variation 17.5 11.5-14.5 % Platelet Count 174 130-400 K/uL Mean Platelet Volume 9.5 7.4-10.4 fL Sodium Level 138 136-145 mmol/L Potassium Level 4.3 3.5-5.1 mmol/L Chloride Level 101 98-107 mmol/L Carbon Dioxide Level 31 21-32 mmol/L Anion Gap 6.0 3-11 mmol/L Blood Urea Nitrogen 23 7-18 mg/dl Creatinine 0.82 0.60-1.20 mg/dl Est Creatinine Clear Calc Drug Dose 59.1 ml/min Estimated GFR () 77.8 Estimated GFR (Non- 67.1 BUN/Creatinine Ratio 27.4 10-20 Random Glucose 172 70-99 mg/dl Calcium Level 7.9 8.5-10.1 mg/dl Phosphorus Level 3.0 2.5-4.9 mg/dl Magnesium Level 2.0 1.8-2.4 mg/dl
[2016-06-24] MEDS ORDERED: BISACODYL 10 MG SUPP PR ONE (15:45)
[2016-06-24] MEDS: WARFARIN SOD 4 MG TAB PO SCH (16:48)
[2016-06-24] MEDS ORDERED: SOD PHOSPHATE/SOD BIPHOSPHATE ENEMA 132 ML BTL PR STA (18:48)
[2016-06-24] MEDS ORDERED: CIPROFLOXACIN / D5W 400 MG in PREMIXED IN D5W 200 ML IV ONE (18:50)
[2016-06-25] MEDS: LEVOTHYROXINE 50 MCG TAB PO SCH (05:58)
[2016-06-25] MEDS: DOCUSATE SODIUM 100 MG CAP PO SCH ×2 (07:16→19:36)
[2016-06-25] MEDS: GUAIFENESIN 600 MG TABCR PO SCH ×2 (07:16→19:37)
[2016-06-25] MEDS: METOPROLOL TARTRATE 50 MG TAB PO SCH ×2 (07:20→19:37)
[2016-06-25] MEDS: FUROSEMIDE INJ 40 MG in SYRINGE 0 ML IV SCH (07:21)
[2016-06-25] MEDS: CLONIDINE HCL 0.1 MG TAB PO SCH ×2 (07:21→19:36)
[2016-06-25] MEDS: PANTOprazole SOD 40 MG TAB PO SCH ×2 (07:22→19:36)
[2016-06-25] MEDS: AMIODARONE 200 MG TAB PO SCH (07:22)
[2016-06-25 07:59] VITALS: BP 144/72; PULSE 65; TEMP 36.6; O2SAT 98
[2016-06-25] MEDS ORDERED: CIPROFLOXACIN / D5W 400 MG in PREMIXED IN D5W 200 ML IV SCH (08:00)
[2016-06-25] MEDS: SUCRALFATE 1 GM/10 ML UDC PO SCH ×5 (08:00→19:36)
[2016-06-25 08:19] LABS: HEMATOCRIT 25.5 % (37-47); MEAN CELL VOLUME 99.2 fL (80-100); MEAN CORPUSCULAR HEMOGLOBIN 31.1 pg (25-34); MEAN CORPUSCULAR HGB CONC 31.4 g/dl (32-36); PLATELET COUNT 162 K/uL (130-400); RED BLOOD COUNT 2.57 M/uL (4.2-5.4); WHITE BLOOD COUNT 10.96 K/uL (4.8-10.8)
[2016-06-25 08:35] LABS: PROTHROMBIN TIME (PATIENT) 42.6 SECONDS (9.0-12.0)
[2016-06-25] MEDS: INSULIN ASPART 100 UNITS/ML 3 ML PEN SC SCH ×4 (08:52→20:57)
[2016-06-25] MEDS: INSULIN GLARGINE SOLOSTAR 100 UNITS/ML 3 ML PEN SC SCH (08:53)
[2016-06-25 09:07] LABS: INR 3.8 (0.9-1.1)
[2016-06-25 09:42] VITALS: PULSE 64; O2SAT 97
[2016-06-25] MEDS: ALBUT/IPRATROP 3MG/0.5MG NEB 3 ML VIAL INH PRN ×2 (09:42→22:19)
[2016-06-25] MEDS ORDERED: CEFTRIAXONE SOD INJ 1,000 MG in DEXTROSE 5% 50ML 50 ML IV ONE (11:30)
--- NOTE | 2016-06-25 15:03 | Progress Note ---
Internal Med Progress Note Date of Service: Jun 25, 2016. Provider Documentation: SUBJECTIVE: The patient was seen and examined Generally weak and lethargic Much better this morning Bowel moved with enema OBJECTIVE: Vital Signs-as noted below Exam: General-No distress at rest Generally weak and lethargic Eyes-Normal ENT-normal Neck-supple Lungs-Decreased breath sound bilaterally Minimal Basilar crackles Heart-Irregular,no murmur Abdomen-Soft,huge ventral hernia ,no obstruction Extremities-Trace Edema both upper and Lower extremities Right Upper Extremity is swollen Neuro-AAOx3 Lab data as noted below. ASSESSMENT & PLAN: 80y F with significant heart history and valve issues admitted for increased work of breathing 2/2 CHF exacerbation and copd exacerbation. Leukocytosis Likely secondary to UTI Urine sensitivity pending Started on Cipro and changed to Ceftriaxone as per sensitivity Hypoxemia intermittent SOB :In and out of Telemetry unit CXR-no significant finding bur may have infiltration /Pneumonia Started on IV Clinda ,Nebs and Mucomyst Evaluated by Thoracic Surgery Transferred to Tele Condition improved a lot Did not need Bronchoscopy Appreciate Pulmonary input Clinically much better today Transferred back to floor and start vigorous PT Still having intermittent attacks of SOB Received 40 of Lasix this morning Feels better following that Will need regular small dose of Lasix on discharge No more SOB ACUTE DVT , RIGHT UPPER ARM-about 6 weeks of treatment -Doppler US: 1. Interval healing right-sided PICC catheter 2. Right upper extremity DVT with involvement of subclavian, axillary, brachial, basilic and cephalic veins. - discussed with Cardiology regarding history of pericardial hemorrhage in 2014 associated with PM placement, ok to anticoagulate has history of subdural hemorrhage in 2015 s/p mechanical fall, repeat CT head March 2016 showed resolution - will start Heparin full dose -Hematology consult -check Leg Dopplers to r/o DVT -Has been on Heparin and Coumadin -was changed to Lovenox and Coumadin -has had one episode of questionable hemoptysis-hold Lovenox now -no more Hemoptysis the next day -Lovenox restarted -INR therapeutic today 06/23/16 -D/C Lovenox tomorrow if INR >2 -Lovenox discontinued -INR 2.9 -continue Coumadin -Coumadin 3 mg daily for tomorrow -likely to continue for 6 weeks ,will discuss withn dr rodgers as she has H/ O Hemorrhagic Pericarditis in past Severe Belching-for a long time Secondary huge hiatal hernia s/p status post left thoracotomy with Belsey Jose IV repair on 05/30/2016 Was in ICU following surgery and then in Tele s/p removal NG tube and chest tube removal Clinically much better now 06/04/16 Will have Liquid diet till of this month Barium Swallow did show lower Esophageal narrowing likely due to post surgical edema Belching is improved Tolerating soft diet and ready to be discharged Will have occasional attacks of belching and SOB as observed during her hospital stay Needs to be managed symptomatically Hx of kristina Saeedjoey Was on amiodarone drip as patient is npo Restarted on po amiodarone, dose as per cardiology. Clinically stable and the rate is controlled Continue Amiodarone HTN Restarted po meds Lopressor and clonidine BP is still running high at times iv hydralazine prn Nutrition Started on liquid diet and will continue till of this month Can advance diet as tolerated Now with Soft diet Medically stable to be discharged Thrombocytopenia Was placed on Lovenox post surgery which will be stopped f/u HIT studies-negative Improved and normalized Start SQ Heparin 06/09/16 Hospital course so far: Intial presentation with ACUTE HYPOXIC RESPIRATORY FAILURE, LIKELY MULTIFACTORIAL DUE TO ACUTE DIASTOLIC CHF AND/OR COPD EXACERBATION Presented with cough and SOB x 3 days; influenza outbreak at [facility] term however patient has been on prophylactic [place]fu since 05/05 87% on room air on arrival, improved with oxygen 2L via [place] Treated with steroids, Lasix and abx ECHO did not show any significant change compared with prior test Appreciate Cardiology input Cardiology started on lower dose Losartan which was stopped secondary to arf and hyperkalemia Requiring oxygen while sleeping on nocturna pulse ox study Prednisone on a tapering dose Appreciate Pulmonary input MITRAL VALVE ANOMALY ECHO::ECHO:: * Sinus rhythm was present during the echocardiogram. * There is a 0.6cm x 0.6cm mobile echodensity attached to ventricular surface of the mitral valve annulus near the left ventricular outflow tract. * Calcified mitral apparatus. * The aortic valve is moderately calcified. * Mild valvular aortic stenosis. * Moderate aortic regurgitation. * The left ventricular wall motion is normal. * Ejection Fraction = 60-65%. * Grade I diastolic dysfunction, (abnormal relaxation pattern). * Compared to the most recent echocardiogram, the echodensity is unchanged. cardiology on board stable cardiac condition ATRIAL FIBRILLATION on amiodarone and metoprolol rate controlled Not anticoagulated due to hx of hemorrhagic pericardial effusion and subdural hematoma s/p fall was on amiodarone drip post surgery back on po amiodarone maintenance dose SSS S/P PACER no acute issues ARF' baseline cr 1.2 to 1.3 Monitor labs. DM hgb a1c 7.0 03/2016 oral agents on hold. SSI while hospitalized will monitor GERD, HIATAL HERNIA on PPI/H2 filipe HYPOTHYROIDISM on levothyroxine DEPRESSION on sertraline DVT PROPHYLAXIS Now on Heparin and Coumadin CODE STATUS DNR DISPO: social service for d/c planning Continue PT/OT Will need placement-Rehab placement Awaiting placement Vital Signs: Date Time Temp Pulse Resp B/P Pulse Ox O2 Delivery O2 Flow Rate FiO2 06/25/16 09:42 64 18 97 Nasal Cannula 2.0 06/25/16 08:00 Nasal Cannula 4.0 06/25/16 07:59 36.6 65 20 144/72 98 Nasal Cannula 2.0 06/25/16 00:30 Nasal Cannula 4.0 06/24/16 23:24 37.0 62 20 130/55 98 Nasal Cannula 2.0 06/24/16 21:11 56 18 96 Nasal Cannula 2.0 06/24/16 16:00 99 Nasal Cannula 4.0 06/24/16 15:47 37.1 61 18 127/65 98 Nasal Cannula 2.0 Lab Results: Results Past 24 Hours Test 06/24/16 16:32 06/24/16 20:20 06/25/16 07:57 06/25/16 08:09 Range/Units Bedside Glucose 210 199 153 70-90 mg/dl White Blood Count 10.96 4.8-10.8 K/uL Red Blood Count 2.57 4.2-5.4 M/uL Hemoglobin 8.0 12.0-16.0 g/dL Hematocrit 25.5 37-47 % Mean Corpuscular Volume 99.2 80-100 fL Mean Corpuscular Hemoglobin 31.1 25-34 pg Mean Corpuscular Hemoglobin Concent 31.4 32-36 g/dl RDW Standard Deviation 62.6 36.4-46.3 fL RDW Coefficient of Variation 17.3 11.5-14.5 % Platelet Count 162 130-400 K/uL Mean Platelet Volume 9.0 7.4-10.4 fL Prothrombin Time 42.6 9.0-12.0 SECONDS Prothromb Time International Ratio 3.8 0.9-1.1 Test 06/25/16 11:39 Range/Units Bedside Glucose 201 70-90 mg/dl
[2016-06-25] MEDS: WARFARIN SOD 4 MG TAB PO SCH (15:06)
[2016-06-25 16:00] VITALS: O2SAT 97
[2016-06-25] MEDS: ACETAMINOPHEN 325 MG TAB PO PRN (16:14)
[2016-06-25 16:43] VITALS: BP 159/84; PULSE 63; TEMP 37.3; O2SAT 97
[2016-06-25 19:43] VITALS: BP 113/65; PULSE 60; TEMP 36.9; O2SAT 98
[2016-06-25 22:19] VITALS: PULSE 74; O2SAT 96
[2016-06-25] MEDS: GUAIFENESIN SUGAR FREE 100 MG/5 ML UDC PO PRN (22:55)
[2016-06-25] MEDS: ONDANSETRON INJ 2 MG/ML 2 ML VIAL IV PRN (22:55)
[2016-06-26] VITALS (7 sets, daily range): BP systolic 118–159; BP diastolic 68–81; PULSE 60–70; TEMP 36.3–36.8; O2SAT 93–100
[2016-06-26] MEDS: LEVOTHYROXINE 50 MCG TAB PO SCH (05:39)
[2016-06-26] MEDS: ALBUT/IPRATROP 3MG/0.5MG NEB 3 ML VIAL INH PRN ×2 (05:56→13:11)
[2016-06-26] MEDS: GUAIFENESIN 600 MG TABCR PO SCH ×2 (08:10→20:26)
[2016-06-26] MEDS: METOPROLOL TARTRATE 50 MG TAB PO SCH ×2 (08:10→20:26)
[2016-06-26] MEDS: CLONIDINE HCL 0.1 MG TAB PO SCH ×2 (08:11→20:25)
[2016-06-26] MEDS: PANTOprazole SOD 40 MG TAB PO SCH ×2 (08:12→20:25)
[2016-06-26] MEDS: SUCRALFATE 1 GM/10 ML UDC PO SCH ×4 (08:12→20:00)
[2016-06-26] MEDS: FUROSEMIDE INJ 40 MG in SYRINGE 0 ML IV SCH (08:12)
[2016-06-26] MEDS: AMIODARONE 200 MG TAB PO SCH (08:13)
[2016-06-26] MEDS: DOCUSATE SODIUM 100 MG CAP PO SCH ×2 (08:13→20:25)
[2016-06-26] MEDS: INSULIN ASPART 100 UNITS/ML 3 ML PEN SC SCH ×4 (08:23→21:03)
[2016-06-26] MEDS: INSULIN GLARGINE SOLOSTAR 100 UNITS/ML 3 ML PEN SC SCH (08:24)
[2016-06-26] MEDS ORDERED: FUROSEMIDE 40 MG TAB PO ONE (10:06)
[2016-06-26] MEDS ORDERED: ONDANSETRON 8MG OD TAB PO PRN (10:15)
[2016-06-26 10:30] LABS: CREATININE 0.84 mg/dl (0.60-1.20)
[2016-06-26] MEDS ORDERED: CEFTRIAXONE SOD INJ 1,000 MG in DEXTROSE 5% 50ML 50 ML IV SCH (11:00)
[2016-06-26 11:17] LABS: HEMATOCRIT 27.5 % (37-47); MEAN CELL VOLUME 98.2 fL (80-100); MEAN CORPUSCULAR HEMOGLOBIN 30.4 pg (25-34); MEAN CORPUSCULAR HGB CONC 30.9 g/dl (32-36); MEAN PLATELET VOLUME 9.7 fL (7.4-10.4); PLATELET COUNT 161 K/uL (130-400); WHITE BLOOD COUNT 8.78 K/uL (4.8-10.8)
[2016-06-26] MEDS: CEPHALEXIN MONOHYDRATE 500 MG CAP PO SCH ×2 (13:02→20:24)
[2016-06-26] MEDS ORDERED: SERTRALINE HCL 50 MG TAB PO ONE (13:29)
--- NOTE | 2016-06-26 14:18 | CONSULTATION REPORT ---
DATE OF CONSULTATION: 06/26/2016 IDENTIFYING DATA: Cyndee Robledo is an 80-year-old woman, currently residing at [facility], who was admitted to the hospital on May 13 with shortness of breath and chest pain. We are consulted to evaluate depression. Information is gathered from the patient, the electronic medical record, and considered to be reliable. CHIEF COMPLAINT: "It is all at that time. HISTORY OF PRESENT ILLNESS: Cyndee Robledo is an 80-year-old woman who currently resides at [facility]. She has a complex medical background including diagnoses to be atrial fib, chronic kidney disease stage III, COPD, diabetes, dyslipidemia, hypertension, hypothyroidism, hernia, and sick sinus syndrome, who has been in the hospital now for 44 days. During her time, she has had multiple complications and even a surgery for laparoscopic repair of her hiatal hernia. It appears that at about that time, on May 16, when she was admitted to ICU, many of her medications were held including her Remeron and her Zoloft and were not restarted. We are now being consulted to evaluate depression. The patient indicates that she is quite sad about her current condition. She denies that she is suicidal, but says that she will frequently ask the Lord to take her. She would never consider ending her life. She describes her mood as "not very good," although says she is sleeping well and says that she eats at every meal. She denies that she has had auditory or visual hallucinations during her stay and today, she is oriented. She says that she gets nervous and worried about her medical conditions, but denies that this rises to the level of panic. Nurses report included that she has not attended PT and even today. It took several people to assist her to get out of bed to chair. CURRENT MEDICATIONS: 1. Lasix 40 mg q.a.m. 2. Keflex 500 mg t.i.d. 3. Zofran 8 mg p.r.n. 4. Coumadin 4 mg daily. 5. Mucinex 600 mg q. 12 hours. 6. Colace 100 mg b.i.d. 7. Catapres 0.1 mg b.i.d. 8. Tramadol p.r.n. 9. Carafate 1 gram q.i.d. 10. Synthroid 50 mcg daily. 11. Catapres p.r.n. 12. Lantus insulin 7 units daily. 13. Heparin. 14. Prednisone 10 mg daily. 15. Protonix 40 mg b.i.d. 16. Lopressor 50 mg b.i.d. 17. Insulin sliding scale. PAST PSYCHIATRIC HISTORY: The patient denies that she has ever seen a mental health professional, never been hospitalized for mental health reasons and never made a suicide attempt. ACCESS TO GUNS: Denies. ALLERGIES: 1. PENICILLIN -- RASH. 2. MORPHINE --? 3. GAMALIEL INHIBITORS -- HYPERKALEMIA. 4. ANGIOTENSIN RECEPTOR BLOCKERS -- HYPERKALEMIA. 5. CODEINE -- MAKES HER HIGH. PAST MEDICAL HISTORY: 1. History of atrial fibrillation. 2. Hypertension. 3. Thrombocytopenia. 4. COPD. 5. Diastolic heart failure, status post pacemaker. 6. Acute renal failure with baseline creatinine 1.2-1.3. 7. Diabetes. 8. GERD. 9. Hypothyroidism. SUBSTANCE USE HISTORY: None. PERSONAL HISTORY: The patient lives at [facility]. Next of kin is listed as cousin. MENTAL STATUS EXAMINATION: An 80-year-old woman with short white hair, who is assisted to the bedside chair by physical therapy. She is short of breath, wearing oxygen by nasal cannula. She makes good eye contact. Motor behavior is unremarkable, but demonstrating weakness, moving from bed to chair. Affect is flat. Speech is of normal rate, volume, and tone. Mood is "not very good." Thought process is organized and goal directed. She denies thought disorder in the form of hallucinations or delusions. She denies active suicidal thoughts, but admits to passive wishes for . No homicidal ideation. Today, the patient is fully oriented. Memory functions appear to be intact per conversation. Fund of knowledge is intact. Intelligence is estimated to be average. Insight and judgment are fair. VITAL SIGNS: Temperature 36.3, pulse 62, respirations 20, blood pressure 159/71, and pulse ox 98% on 2 liters. MOST RECENT LABS: 1. CBC -- notable for RBCs 2.80, hemoglobin and hematocrit low at 8.5 and 27.5. 2. Most recent chem profile -- BUN 23, creatinine 0.82, glucoses ranging in the 100s and 200s, and calcium low at 7.9. 3. Urinalysis on 06/12/2016 showed 2+ bacteria, calcium oxalate, white blood cells, red blood cells, and 1+ occult blood. 4. Influenza A and B negative. REVIEW OF SYSTEMS: Positive for complaints of fatigue, low mood, poor motivation, and bruising from lab draws. PHYSICAL EXAMINATION: As per Dr. Feliz. IMPRESSION: An 80-year-old woman with multiple medical problems, admitted with chest pain and shortness of breath. She has had a complicated course and been in and out of telemetry and ICU. Consult placed for depression. Apparently, the patient has been off of her antidepressants including Zoloft 100 mg and Remeron 15 mg daily since approximately May 16, when she was transferred to ICU postop. It has been more than a month than she is likely feeling the effects of being off of her antidepressants. She is willing to go back on them. I will restart Remeron 15 mg at bedtime and I will begin the titration for Zoloft at 50 mg daily. If indeed she seems to be sedated on the Remeron, we could consider discontinuing that and simply titrating Zoloft until we see how her mood responses. She is not acutely suicidal nor is she psychotic and so at this point, we will follow along as we titrate her medications up. She does not meet any kind of criteria for inpatient mental health treatment. DIAGNOSES: 1. Major depressive disorder, recurrent, moderate. 2. Anxiety disorder, not otherwise specified. 3. Medical conditions as above. PLAN: Has been reviewed with Dr. Jo Rodriguez. 1. Depression. a. Restart Remeron 15 mg at bedtime. b. Restart Zoloft 50 mg daily, titrating as tolerated. c. If the patient seems overly sedated, would discontinue Remeron and use monotherapy with Zoloft and we see how her mood responses. d. We will encourage the patient to be out of bed as much as possible and ambulating if able. 2. We will follow. We thank you for allowing us to participate in this woman's care. [facility]OSPITALPaul
[2016-06-26] MEDS: WARFARIN SOD 4 MG TAB PO SCH (15:23)
[2016-06-26] MEDS: TRAMADOL HCL 50 MG TAB PO PRN (15:30)
[2016-06-26] MEDS ORDERED: NURSING VERBAL MED ORDER ONE (15:30)
--- NOTE | 2016-06-26 17:23 | Progress Note ---
Internal Med Progress Note Date of Service: Jun 26, 2016. Provider Documentation: SUBJECTIVE: The patient was seen and examined Generally weak and lethargic Much better this morning Bowel moved with enema Discussed with the Friends who are like her family members Overall situation is stable without much improvement of her general condition Reasonably stable to be transferred to Rehab Condition may get worse any time OBJECTIVE: Vital Signs-as noted below Exam: General-No distress at rest Generally weak and lethargic Eyes-Normal ENT-normal Neck-supple Lungs-Decreased breath sound bilaterally Minimal Basilar crackles Heart-Irregular,no murmur Abdomen-Soft,huge ventral hernia ,no obstruction Extremities-Trace Edema both upper and Lower extremities Right Upper Extremity is swollen Neuro-AAOx3 Lab data as noted below. ASSESSMENT & PLAN: 80y F with significant heart history and valve issues admitted for increased work of breathing 2/2 CHF exacerbation and copd exacerbation. Very Depressed Apparently was not taking her antipsychotic medications recently Psychiatry consulted Advised to put back on her antipsychotics Leukocytosis Likely secondary to UTI Urine sensitivity pending Started on Cipro and changed to Ceftriaxone as per sensitivity WCC is improving Will change Ceftriaxone to Keflex Symptomatically better Hypoxemia intermittent SOB :In and out of Telemetry unit CXR-no significant finding bur may have infiltration /Pneumonia Started on IV Clinda ,Nebs and Mucomyst Evaluated by Thoracic Surgery Transferred to Tele Condition improved a lot Did not need Bronchoscopy Appreciate Pulmonary input Clinically much better today Transferred back to floor and start vigorous PT Still having intermittent attacks of SOB Received 40 of Lasix this morning Feels better following that Will need regular small dose of Lasix on discharge No more SOB ACUTE DVT , RIGHT UPPER ARM-about 6 weeks of treatment -Doppler US: 1. Interval healing right-sided PICC catheter 2. Right upper extremity DVT with involvement of subclavian, axillary, brachial, basilic and cephalic veins. - discussed with Cardiology regarding history of pericardial hemorrhage in 2014 associated with PM placement, ok to anticoagulate has history of subdural hemorrhage in 2015 s/p mechanical fall, repeat CT head March 2016 showed resolution - will start Heparin full dose -Hematology consult -check Leg Dopplers to r/o DVT -Has been on Heparin and Coumadin -was changed to Lovenox and Coumadin -has had one episode of questionable hemoptysis-hold Lovenox now -no more Hemoptysis the next day -Lovenox restarted -INR therapeutic today 06/23/16 -D/C Lovenox tomorrow if INR >2 -Lovenox discontinued -INR 2.9 -continue Coumadin -Coumadin 3 mg daily for tomorrow -likely to continue for 6 weeks ,will discuss with dr Guadarrama as she has H/O Hemorrhagic Pericarditis in past Severe Belching-for a long time Secondary huge hiatal hernia s/p status post left thoracotomy with Belsey Jose IV repair on 05/30/2016 Was in ICU following surgery and then in Tele s/p removal NG tube and chest tube removal Clinically much better now 06/04/16 Will have Liquid diet till of this month Barium Swallow did show lower Esophageal narrowing likely due to post surgical edema Belching is improved Tolerating soft diet and ready to be discharged Will have occasional attacks of belching and SOB as observed during her hospital stay Needs to be managed symptomatically Her belching is better Hx of a .fib Was on amiodarone drip as patient is npo Restarted on po amiodarone, dose as per cardiology. Clinically stable and the rate is controlled Continue Amiodarone HTN Restarted po meds Lopressor and clonidine BP is still running high at times iv hydralazine prn Nutrition Started on liquid diet and will continue till of this month Can advance diet as tolerated Now with Soft diet Medically stable to be discharged Thrombocytopenia Was placed on Lovenox post surgery which will be stopped f/u HIT studies-negative Improved and normalized Start SQ Heparin 06/09/16 Hospital course so far: Intial presentation with ACUTE HYPOXIC RESPIRATORY FAILURE, LIKELY MULTIFACTORIAL DUE TO ACUTE DIASTOLIC CHF AND/OR COPD EXACERBATION Presented with cough and SOB x 3 days; influenza outbreak at long-term however patient has been on prophylactic Tamilfu since 05/05 87% on room air on arrival, improved with oxygen 2L via NC Treated with steroids, Lasix and abx ECHO did not show any significant change compared with prior test Appreciate Cardiology input Cardiology started on lower dose Losartan which was stopped secondary to arf and hyperkalemia Requiring oxygen while sleeping on nocturna pulse ox study Prednisone on a tapering dose Appreciate Pulmonary input MITRAL VALVE ANOMALY ECHO::ECHO:: * Sinus rhythm was present during the echocardiogram. * There is a 0.6cm x 0.6cm mobile echodensity attached to ventricular surface of the mitral valve annulus near the left ventricular outflow tract. * Calcified mitral apparatus. * The aortic valve is moderately calcified. * Mild valvular aortic stenosis. * Moderate aortic regurgitation. * The left ventricular wall motion is normal. * Ejection Fraction = 60-65%. * Grade I diastolic dysfunction, (abnormal relaxation pattern). * Compared to the most recent echocardiogram, the echodensity is unchanged. cardiology on board stable cardiac condition ATRIAL FIBRILLATION on amiodarone and metoprolol rate controlled Not anticoagulated due to hx of hemorrhagic pericardial effusion and subdural hematoma s/p fall was on amiodarone drip post surgery back on po amiodarone maintenance dose SSS S/P PACER no acute issues ARF' baseline cr 1.2 to 1.3 Monitor labs. DM hgb a1c 7.0 03/2016 oral agents on hold. SSI while hospitalized will monitor GERD, HIATAL HERNIA on PPI/H2 filipe HYPOTHYROIDISM on levothyroxine DEPRESSION on sertraline DVT PROPHYLAXIS Now on Heparin and Coumadin CODE STATUS DNR DISPO: social service for d/c planning Continue PT/OT Will need placement-Rehab placement Awaiting placement Vital Signs: Date Time Temp Pulse Resp B/P Pulse Ox O2 Delivery O2 Flow Rate FiO2 06/26/16 14:46 36.8 69 20 118/68 95 06/26/16 13:12 65 16 98 Nasal Cannula 2.0 06/26/16 08:00 Nasal Cannula 4.0 06/26/16 07:52 36.3 62 20 159/71 100 2.0 06/26/16 05:56 60 18 98 Nasal Cannula 2.0 06/26/16 00:12 36.3 70 16 127/81 93 Nasal Cannula 2.0 06/26/16 00:00 96 Nasal Cannula 2.0 06/25/16 22:19 74 16 96 Nasal Cannula 2.0 06/25/16 20:00 Nasal Cannula 4.0 06/25/16 19:43 36.9 60 22 113/65 98 Room Air Lab Results: Results Past 24 Hours Test 06/25/16 20:27 06/26/16 08:17 06/26/16 09:33 06/26/16 11:29 Range/Units Bedside Glucose 205 223 149 70-90 mg/dl White Blood Count 8.78 4.8-10.8 K/uL Red Blood Count 2.80 4.2-5.4 M/uL Hemoglobin 8.5 12.0-16.0 g/dL Hematocrit 27.5 37-47 % Mean Corpuscular Volume 98.2 80-100 fL Mean Corpuscular Hemoglobin 30.4 25-34 pg Mean Corpuscular Hemoglobin Concent 30.9 32-36 g/dl RDW Standard Deviation 62.4 36.4-46.3 fL RDW Coefficient of Variation 17.1 11.5-14.5 % Platelet Count 161 130-400 K/uL Mean Platelet Volume 9.7 7.4-10.4 fL Nucleated RBC Absolute Count (auto) 0.04 0-0 K/uL Nucleated Red Blood Cells % 0.5 % Creatinine 0.84 0.60-1.20 mg/dl Est Creatinine Clear Calc Drug Dose 57.9 ml/min Estimated GFR () 75.5 Estimated GFR (Non- 65.2
[2016-06-26] MEDS: MIRTAZAPINE TAB 15 MG TAB PO SCH (20:27)
[2016-06-26] MEDS ORDERED: SOAP SUDS ENEMA PR ONE (21:00)
[2016-06-27 00:31] VITALS: BP 159/82; PULSE 59; TEMP 36.4; O2SAT 2
[2016-06-27] MEDS: LEVOTHYROXINE 50 MCG TAB PO SCH (06:24)
[2016-06-27 07:15] VITALS: PULSE 60; O2SAT 98
[2016-06-27] MEDS: ALBUT/IPRATROP 3MG/0.5MG NEB 3 ML VIAL INH PRN ×2 (07:15→22:21)
[2016-06-27] MEDS: SUCRALFATE 1 GM/10 ML UDC PO SCH ×4 (08:00→20:00)
[2016-06-27 08:06] VITALS: BP 118/77; PULSE 61; TEMP 36.8; O2SAT 94
[2016-06-27] MEDS: DOCUSATE SODIUM 100 MG CAP PO SCH ×2 (08:23→20:13)
[2016-06-27] MEDS: GUAIFENESIN 600 MG TABCR PO SCH ×2 (08:23→20:14)
[2016-06-27] MEDS: CEPHALEXIN MONOHYDRATE 500 MG CAP PO SCH ×3 (08:24→20:10)
[2016-06-27] MEDS: CLONIDINE HCL 0.1 MG TAB PO SCH ×2 (08:24→20:13)
[2016-06-27] MEDS: SERTRALINE HCL 50 MG TAB PO SCH (08:24)
[2016-06-27] MEDS: FUROSEMIDE 40 MG TAB PO SCH (08:24)
[2016-06-27] MEDS: METOPROLOL TARTRATE 50 MG TAB PO SCH ×2 (08:25→20:11)
[2016-06-27] MEDS: AMIODARONE 200 MG TAB PO SCH (08:25)
[2016-06-27] MEDS: PANTOprazole SOD 40 MG TAB PO SCH ×2 (08:25→20:13)
[2016-06-27] MEDS: INSULIN ASPART 100 UNITS/ML 3 ML PEN SC SCH ×4 (08:28→21:14)
[2016-06-27] MEDS: INSULIN GLARGINE SOLOSTAR 100 UNITS/ML 3 ML PEN SC SCH (08:29)
[2016-06-27 09:50] LABS: INR 2.4 (0.9-1.1); PROTHROMBIN TIME (PATIENT) 27.1 SECONDS (9.0-12.0)
[2016-06-27 14:50] VITALS: BP 144/68; PULSE 62; TEMP 37.3; O2SAT 98
--- NOTE | 2016-06-27 15:31 | SURGERY PROGRESS NOTE ---
DATE: 06/27/2016 SUBJECTIVE: Ms. Robledo was seen today on 06/27/2016. I have not seen her in 1 week. She is now 4 weeks out from her surgery and quite frankly I think she looks good. Her cough is not as severe. She sounds better in her left base and her incision is healed nicely. She does have a wound in the gluteal cleft. Overall, I think she has done well. She is eating well. I still would hold solid foods as I am afraid of getting hung up. At this point, I will continue to follow along, but she should be able to go to an extended care facility.
[2016-06-27] MEDS: WARFARIN SOD 3 MG TAB PO SCH (16:01)
--- NOTE | 2016-06-27 18:57 | Progress Note ---
Medicine Progress Note Date & Time of Visit: Jun 27, 2016 at 18:42. Subjective Pt was seen and examined sitting in chair with no distress Pt said that she feels ok denies any chest pain, palpitation and dizziness. Objective Last 8 Hrs Date Time Temp Pulse Resp B/P Pulse Ox O2 Delivery O2 Flow Rate FiO2 06/27/16 16:00 Nasal Cannula 2.0 06/27/16 14:50 37.3 62 17 144/68 98 Nasal Cannula 2.0 Physical Exam: General- no acute distress Head- atraumatic Eyes- PERRL, EOMI ENT- oropharynx clear Neck- supple, no JVD Lungs- poor air entry Heart- irregular rhythm; no murmur Abdomen- normal bowel sounds, soft Extremities- no calf tenderness Neuro- alert, oriented, PERRL, EOMI Skin- warm & dry Laboratory Results: Last 24 Hours Test 06/26/16 20:43 06/27/16 08:00 06/27/16 09:15 06/27/16 11:34 Bedside Glucose 238 mg/dl 161 mg/dl 108 mg/dl Prothrombin Time 27.1 SECONDS Prothromb Time International Ratio 2.4 Date/Time Source Procedure Growth Status 06/26/16 21:26 Sputum Expectorated Sputum Gram Stain - Final Complete 06/26/16 21:26 Sputum Expectorated Sputum Sputum Culture - Final Complete Assessment & Plan Depression Zoloft an remeron restarted Tolerated med well- continue current management Psychiatry consulted Leukocytosis Likely secondary to UTI urine growth to proteus mirabilis Started on Cipro and changed to Ceftriaxone as per sensitivity abx was changed to keflex on 06/26 stable Respiratory failure with hypoxia CXR showed no change in appearance of the chest. Persistent bilateral pleural effusions and left basilar opacity which could reflect atelectasis or consolidation. Started on IV Clinda and completed abx course,Nebs and Mucomyst She had a surgical repair done for her hiatal hernia by Dr. Rosas on 05/30/16 Continue having episodic sob continue oxygen supplement Condition improved a lot Clinically much better today Continue PT/OT ACUTE DVT , RIGHT UPPER ARM-about 6 weeks of treatment -Doppler US: 1. Interval healing right-sided PICC catheter 2. Right upper extremity DVT with involvement of subclavian, axillary, brachial, basilic and cephalic veins. - discussed with Cardiology regarding history of pericardial hemorrhage in 2014 associated with PM placement, ok to anticoagulate has history of subdural hemorrhage in 2015 s/p mechanical fall, repeat CT head March 2016 showed resolution - will start Heparin full dose -Hematology consult -check Leg Dopplers to r/o DVT -Has been on Heparin and Coumadin -was changed to Lovenox and Coumadin -has had one episode of questionable hemoptysis-hold Lovenox now -no more Hemoptysis the next day -Lovenox restarted -INR therapeutic today 06/23/16 -D/C Lovenox tomorrow if INR >2 -Lovenox discontinued -INR 2.4 -continue Coumadin -Coumadin 3 mg daily -likely to continue for 6 weeks ,will discuss with dr Guadarrama as she has 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 Rosas s/p removal NG tube and chest tube removal Barium Swallow did show lower Esophageal narrowing likely due to post surgical edema Belching is improved Tolerating diet Will have occasional attacks of belching and SOB as observed during her hospital stay Needs to be managed symptomatically Her belching is better Stable Hx of a .fib Rate is controlled Continue Amiodarone and coumadin INR today 2.4 Continue monitor INR Stable HTN Continue BP med BP stable Nutrition Started on liquid diet and will continue till of this month Can advance diet as tolerated Now with Soft diet Medically stable to be discharged Thrombocytopenia HIT studies-negative platelet wnl stable Hospital course so far: Intial presentation with ACUTE HYPOXIC RESPIRATORY FAILURE, LIKELY MULTIFACTORIAL DUE TO ACUTE DIASTOLIC CHF AND/OR COPD EXACERBATION Presented with cough and SOB x 3 days; influenza outbreak at assisted however patient has been on prophylactic Tamilfu since 05/05 87% on room air on arrival, improved with oxygen 2L via NC Treated with steroids, Lasix and abx ECHO did not show any significant change compared with prior test Appreciate Cardiology input Cardiology started on lower dose Losartan which was stopped secondary to arf and hyperkalemia Requiring oxygen while sleeping on nocturna pulse ox study Prednisone on a tapering dose Appreciate Pulmonary input MITRAL VALVE ANOMALY ECHO::ECHO:: * Sinus rhythm was present during the echocardiogram. * There is a 0.6cm x 0.6cm mobile echodensity attached to ventricular surface of the mitral valve annulus near the left ventricular outflow tract. * Calcified mitral apparatus. * The aortic valve is moderately calcified. * Mild valvular aortic stenosis. * Moderate aortic regurgitation. * The left ventricular wall motion is normal. * Ejection Fraction = 60-65%. * Grade I diastolic dysfunction, (abnormal relaxation pattern). * Compared to the most recent echocardiogram, the echodensity is unchanged. cardiology on board stable cardiac condition ATRIAL FIBRILLATION on amiodarone and metoprolol rate controlled Not anticoagulated due to hx of hemorrhagic pericardial effusion and subdural hematoma s/p fall was on amiodarone drip post surgery back on po amiodarone maintenance dose SSS S/P PACER no acute issues ARF' baseline cr 1.2 to 1.3 Monitor labs. DM hgb a1c 7.0 03/2016 oral agents on hold. SSI while hospitalized will monitor GERD, HIATAL HERNIA on PPI/H2 filipe HYPOTHYROIDISM on levothyroxine DEPRESSION on sertraline DVT PROPHYLAXIS Now on Heparin and Coumadin CODE STATUS DNR DISPO: social service for d/c planning Continue PT/OT Awaiting placement Consultants: Cards Current Inpatient Medications: Current Inpatient Medications Medications (Trade) Dose Ordered Sig/Srinivas Route Start Time Stop Time Status Last Admin Dose Admin Albuterol/ Ipratropium (Duoneb) 3 ml Q2H PRN INH 06/01/16 09:30 07/01/16 09:29 06/27/16 07:15 3 ML Heparin Sodium (Porcine) (Heparin 10 Unit/ ml 5 ml Flush) 5 ml PRN PRN FLUSH 06/02/16 13:15 07/02/16 13:14 06/23/16 06:10 5 ML Pantoprazole Sodium (Protonix Tab) 40 mg BID PO 06/03/16 21:00 07/03/16 20:59 06/27/16 08:25 40 MG Metoprolol Tartrate (Lopressor Tab) 50 mg BID PO 06/03/16 21:00 07/03/16 20:59 06/27/16 08:25 50 MG Hydralazine HCl (HydrALAZINE INJ) 5 mg Q6 PRN IV. 06/03/16 20:15 07/03/16 20:14 Insulin Aspart (novoLOG ASPART) SLIDING SCALE G... ACHS SC 06/03/16 21:00 06/29/16 17:59 06/27/16 12:31 2 UNITS Albuterol Sulfate (Ventolin 0.083% 2.5MG/3ML Neb) 2.5 mg Q6R PRN INH 06/05/16 11:30 07/05/16 11:29 06/21/16 12:07 2.5 MG Prednisone (PredniSONE TAB) 10 mg DAILY PO 06/07/16 09:00 07/07/16 08:59 06/27/16 08:23 10 MG Heparin Sodium (Porcine) (Heparin 10 Unit/ ml 5 ml Flush) 5 ml PRN PRN FLUSH 06/08/16 11:15 07/08/16 11:14 06/21/16 06:49 5 ML Insulin Glargine (Lantus Solostar Pen) 7 unit DAILY SC 06/10/16 08:00 07/10/16 07:59 06/27/16 08:29 7 UNIT Amiodarone HCl (Cordarone Tab) 200 mg QAM PO 06/13/16 08:00 07/13/16 07:59 06/27/16 08:25 200 MG Acetaminophen (Tylenol Tab) 650 mg Q4H PRN PO 06/13/16 09:30 07/13/16 09:29 06/25/16 16:14 650 MG Clonidine HCl (Catapres Tab) 0.1 mg Q6H PRN PO 06/13/16 17:30 07/13/16 17:29 06/15/16 08:06 0.1 MG Levothyroxine Sodium (Synthroid Tab) 50 mcg DAILYBB PO 06/15/16 06:30 07/15/16 06:29 06/27/16 06:24 50 MCG Sucralfate (Carafate Susp) 1 gm QID PO 06/15/16 12:00 07/15/16 11:59 06/26/16 08:12 1 GM Tramadol HCl (Ultram Tab) 50 mg Q6H PRN PO 06/17/16 18:15 07/17/16 18:14 06/26/16 15:30 50 MG Clonidine HCl (Catapres Tab) 0.1 mg BID PO 06/17/16 22:00 07/17/16 21:59 06/27/16 08:24 0.1 MG Docusate Sodium (coLACE CAP) 100 mg BID PO 06/20/16 20:00 07/20/16 19:59 06/27/16 08:23 100 MG Guaifenesin (Mucinex Contr Rel Tab) 600 mg Q12 PO 06/22/16 21:00 07/22/16 20:59 06/27/16 08:23 600 MG Guaifenesin (Robitussin Sugar Free Syrup) 100 mg Q6H PRN PO 06/23/16 08:15 07/23/16 08:14 06/25/16 22:55 100 MG Ondansetron HCl (Zofran Inj) 4 mg Q4H PRN IV 06/23/16 12:30 07/23/16 12:29 06/25/16 22:55 4 MG Miconazole Nitrate (Desenex Powder) 1 appln PRN PRN EXT 06/24/16 05:00 07/24/16 04:59 06/24/16 09:11 1 APPLN Furosemide (Lasix Tab) 40 mg QAM PO 06/27/16 08:00 07/27/16 07:59 06/27/16 08:24 40 MG Cephalexin Monohydrate (Keflex Cap) 500 mg TID PO 06/26/16 14:00 07/01/16 13:59 06/27/16 14:12 500 MG Ondansetron HCl (Zofran Odt) 8 mg Q4H PRN PO 06/26/16 10:15 07/26/16 10:14 Sertraline HCl (Zoloft Tab) 50 mg QAM PO 06/27/16 08:00 07/27/16 07:59 06/27/16 08:24 50 MG Mirtazapine (Remeron Tab) 15 mg HS PO 06/26/16 21:00 07/26/16 20:59 06/26/16 20:27 15 MG Warfarin Sodium (Coumadin Tab) 3 mg DAILY@16 PO 06/27/16 16:00 07/27/16 15:59 06/27/16 16:01 3 MG
[2016-06-27] MEDS ORDERED: NURSING VERBAL MED ORDER ONE (19:00)
[2016-06-27] MEDS: GUAIFENESIN SUGAR FREE 100 MG/5 ML UDC PO PRN (19:00)
[2016-06-27] MEDS ORDERED: NovoLOG PER UNIT CHARGE SC ONE (19:15)
[2016-06-27] MEDS: MIRTAZAPINE TAB 15 MG TAB PO SCH (21:15)
[2016-06-27 22:21] VITALS: PULSE 71; O2SAT 98
[2016-06-28] VITALS (10 sets, daily range): BP systolic 147–192; BP diastolic 69–83; PULSE 60–73; TEMP 36–37.2; O2SAT 91–97
[2016-06-28] MEDS: ALBUT/IPRATROP 3MG/0.5MG NEB 3 ML VIAL INH PRN ×3 (05:05→19:21)
[2016-06-28] MEDS: LEVOTHYROXINE 50 MCG TAB PO SCH (06:02)
[2016-06-28 06:39] LABS: HEMATOCRIT 30.3 % (37-47); MEAN CELL VOLUME 102.7 fL (80-100); MEAN CORPUSCULAR HEMOGLOBIN 30.2 pg (25-34); MEAN CORPUSCULAR HGB CONC 29.4 g/dl (32-36); MEAN PLATELET VOLUME 9.1 fL (7.4-10.4); PLATELET COUNT 181 K/uL (130-400); RED BLOOD COUNT 2.95 M/uL (4.2-5.4); WHITE BLOOD COUNT 8.86 K/uL (4.8-10.8)
[2016-06-28 06:46] LABS: INR 2.4 (0.9-1.1); PROTHROMBIN TIME (PATIENT) 26.7 SECONDS (9.0-12.0)
[2016-06-28 07:10] LABS: CREATININE 0.7 mg/dl (0.60-1.20)
[2016-06-28 07:11] LABS: BUN/CREATININE RATIO 23.4 (10-20); POTASSIUM 3.9 mmol/L (3.5-5.1)
[2016-06-28] MEDS: SUCRALFATE 1 GM/10 ML UDC PO SCH ×4 (08:00→20:30)
[2016-06-28] MEDS: FUROSEMIDE 40 MG TAB PO SCH (08:08)
[2016-06-28] MEDS: DOCUSATE SODIUM 100 MG CAP PO SCH ×2 (08:08→20:34)
[2016-06-28] MEDS: CEPHALEXIN MONOHYDRATE 500 MG CAP PO SCH ×3 (08:08→20:32)
[2016-06-28] MEDS: PANTOprazole SOD 40 MG TAB PO SCH ×2 (08:08→20:33)
[2016-06-28] MEDS: SERTRALINE HCL 50 MG TAB PO SCH (08:08)
[2016-06-28] MEDS: AMIODARONE 200 MG TAB PO SCH (08:08)
[2016-06-28] MEDS: METOPROLOL TARTRATE 50 MG TAB PO SCH ×2 (08:08→20:33)
[2016-06-28] MEDS: CLONIDINE HCL 0.1 MG TAB PO SCH ×2 (08:08→20:34)
[2016-06-28] MEDS: GUAIFENESIN 600 MG TABCR PO SCH ×2 (08:09→20:35)
[2016-06-28] MEDS: INSULIN GLARGINE SOLOSTAR 100 UNITS/ML 3 ML PEN SC SCH (08:14)
[2016-06-28] MEDS: INSULIN ASPART 100 UNITS/ML 3 ML PEN SC SCH ×4 (09:04→20:38)
[2016-06-28] MEDS: WARFARIN SOD 3 MG TAB PO SCH (15:54)
[2016-06-28] MEDS: MIRTAZAPINE TAB 15 MG TAB PO SCH (20:33)
--- NOTE | 2016-06-28 21:33 | Progress Note ---
Medicine Progress Note Date & Time of Visit: Jun 28, 2016 at 18:46. Subjective Pt was seen and examined Lying in bed with no distress Pt said that she feels weak today she said that she is having a lot of pain. Objective Last 8 Hrs Date Time Temp Pulse Resp B/P Pulse Ox O2 Delivery O2 Flow Rate FiO2 06/28/16 16:13 37.2 62 18 174/71 94 Nasal Cannula 2.0 06/28/16 16:00 Nasal Cannula 2.0 06/28/16 15:55 60 18 96 Nasal Cannula 2.0 Physical Exam: General- no acute distress Head- atraumatic Eyes- PERRL, EOMI ENT- oropharynx clear Neck- supple, no JVD Lungs- poor air entry Heart- irregular rhythm; no murmur Abdomen- normal bowel sounds, soft Extremities- no calf tenderness, +edema Neuro- alert, oriented, PERRL, EOMI Skin- warm & dry Laboratory Results: Last 24 Hours Test 06/27/16 20:27 06/28/16 06:10 06/28/16 07:39 Bedside Glucose 254 mg/dl 172 mg/dl White Blood Count 8.86 K/uL Red Blood Count 2.95 M/uL Hemoglobin 8.9 g/dL Hematocrit 30.3 % Mean Corpuscular Volume 102.7 fL Mean Corpuscular Hemoglobin 30.2 pg Mean Corpuscular Hemoglobin Concent 29.4 g/dl RDW Standard Deviation 64.8 fL RDW Coefficient of Variation 17.3 % Platelet Count 181 K/uL Mean Platelet Volume 9.1 fL Nucleated RBC Absolute Count (auto) 0.09 K/uL Nucleated Red Blood Cells % 1.0 % Prothrombin Time 26.7 SECONDS Prothromb Time International Ratio 2.4 Sodium Level 144 mmol/L Potassium Level 3.9 mmol/L Chloride Level 103 mmol/L Carbon Dioxide Level 35 mmol/L Anion Gap 6.0 mmol/L Blood Urea Nitrogen 16 mg/dl Creatinine 0.70 mg/dl Est Creatinine Clear Calc Drug Dose 69.8 ml/min Estimated GFR () 94.2 Estimated GFR (Non- 81.3 BUN/Creatinine Ratio 23.4 Random Glucose 165 mg/dl Calcium Level 8.0 mg/dl Assessment & Plan Depression Zoloft and Remeron restarted Tolerated med well- continue current management Psychiatry consulted Stable Leukocytosis Likely secondary to UTI urine growth to proteus mirabilis Started on Cipro and changed to Ceftriaxone as per sensitivity abx was changed to keflex on 06/26 stable Respiratory failure with hypoxia CXR showed no change in appearance of the chest. Persistent bilateral pleural effusions and left basilar opacity which could reflect atelectasis or consolidation. Started on IV Clinda and completed abx course,Nebs and Mucomyst She had a surgical repair done for her hiatal hernia by Dr. Rosas on 05/30/16 Continue having episodic sob continue oxygen supplement Condition improved a lot Clinically much better today Continue PT/OT 06/28 Feels more SOB today lasix has been on hold due to ARF will consider to restart the lasix will monitor creatine closely ACUTE DVT , RIGHT UPPER ARM-about 6 weeks of treatment -Doppler US: 1. Interval healing right-sided PICC catheter 2. Right upper extremity DVT with involvement of subclavian, axillary, brachial, basilic and cephalic veins. - discussed with Cardiology regarding history of pericardial hemorrhage in 2014 associated with PM placement, ok to anticoagulate has history of subdural hemorrhage in 2015 s/p mechanical fall, repeat CT head March 2016 showed resolution - will start Heparin full dose -Hematology consult -check Leg Dopplers to r/o DVT -Has been on Heparin and Coumadin -was changed to Lovenox and Coumadin -has had one episode of questionable hemoptysis-hold Lovenox now -no more Hemoptysis the next day -Lovenox restarted -INR therapeutic today 06/23/16 -D/C Lovenox tomorrow if INR >2 -Lovenox discontinued -INR 2.4 -continue Coumadin -Coumadin 3 mg daily -likely to continue for 6 weeks ,will discuss with dr Guadarrama as she has 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 Rosas s/p removal NG tube and chest tube removal Barium Swallow did show lower Esophageal narrowing likely due to post surgical edema Belching is improved Tolerating diet Will have occasional attacks of belching and SOB as observed during her hospital stay Needs to be managed symptomatically Her belching is better Stable Hx of a .fib Rate is controlled Continue Amiodarone and coumadin INR today 2.4 Continue monitor INR Stable HTN Continue BP med BP stable Nutrition Started on liquid diet and will continue till of this month Can advance diet as tolerated Now with Soft diet Medically stable to be discharged Thrombocytopenia HIT studies-negative platelet wnl stable Hospital course so far: Intial presentation with ACUTE HYPOXIC RESPIRATORY FAILURE, LIKELY MULTIFACTORIAL DUE TO ACUTE DIASTOLIC CHF AND/OR COPD EXACERBATION Presented with cough and SOB x 3 days; influenza outbreak at long term however patient has been on prophylactic Tamilfu since 05/05 87% on room air on arrival, improved with oxygen 2L via NC Treated with steroids, Lasix and abx ECHO did not show any significant change compared with prior test Appreciate Cardiology input Cardiology started on lower dose Losartan which was stopped secondary to arf and hyperkalemia Requiring oxygen while sleeping on nocturna pulse ox study Prednisone on a tapering dose Appreciate Pulmonary input MITRAL VALVE ANOMALY ECHO::ECHO:: * Sinus rhythm was present during the echocardiogram. * There is a 0.6cm x 0.6cm mobile echodensity attached to ventricular surface of the mitral valve annulus near the left ventricular outflow tract. * Calcified mitral apparatus. * The aortic valve is moderately calcified. * Mild valvular aortic stenosis. * Moderate aortic regurgitation. * The left ventricular wall motion is normal. * Ejection Fraction = 60-65%. * Grade I diastolic dysfunction, (abnormal relaxation pattern). * Compared to the most recent echocardiogram, the echodensity is unchanged. cardiology on board stable cardiac condition ATRIAL FIBRILLATION on amiodarone and metoprolol rate controlled Not anticoagulated due to hx of hemorrhagic pericardial effusion and subdural hematoma s/p fall was on amiodarone drip post surgery back on po amiodarone maintenance dose SSS S/P PACER no acute issues ARF' baseline cr 1.2 to 1.3 Monitor labs. DM hgb a1c 7.0 03/2016 oral agents on hold. SSI while hospitalized will monitor GERD, HIATAL HERNIA on PPI/H2 filipe HYPOTHYROIDISM on levothyroxine DEPRESSION on sertraline DVT PROPHYLAXIS Now on Heparin and Coumadin CODE STATUS DNR DISPO: social service for d/c planning Continue PT/OT Awaiting placement Consultants: Cardiology Thoracic surgeon Current Inpatient Medications: Current Inpatient Medications Medications (Trade) Dose Ordered Sig/Srinivas Route Start Time Stop Time Status Last Admin Dose Admin Albuterol/ Ipratropium (Duoneb) 3 ml Q2H PRN INH 2/2/17 09:30 07/01/16 09:29 06/28/16 15:55 3 ML Heparin Sodium (Porcine) (Heparin 10 Unit/ ml 5 ml Flush) 5 ml PRN PRN FLUSH 06/02/16 13:15 07/02/16 13:14 06/23/16 06:10 5 ML Pantoprazole Sodium (Protonix Tab) 40 mg BID PO 06/03/16 21:00 07/03/16 20:59 06/28/16 08:08 40 MG Metoprolol Tartrate (Lopressor Tab) 50 mg BID PO 06/03/16 21:00 07/03/16 20:59 06/28/16 08:08 50 MG Hydralazine HCl (HydrALAZINE INJ) 5 mg Q6 PRN IV. 06/03/16 20:15 07/03/16 20:14 Insulin Aspart (novoLOG ASPART) SLIDING SCALE G... ACHS SC 06/03/16 21:00 06/29/16 17:59 06/28/16 18:00 3 UNITS Albuterol Sulfate (Ventolin 0.083% 2.5MG/3ML Neb) 2.5 mg Q6R PRN INH 06/05/16 11:30 07/05/16 11:29 06/21/16 12:07 2.5 MG Prednisone (PredniSONE TAB) 10 mg DAILY PO 06/07/16 09:00 07/07/16 08:59 06/28/16 08:08 10 MG Heparin Sodium (Porcine) (Heparin 10 Unit/ ml 5 ml Flush) 5 ml PRN PRN FLUSH 06/08/16 11:15 07/08/16 11:14 06/21/16 06:49 5 ML Insulin Glargine (Lantus Solostar Pen) 7 unit DAILY SC 06/10/16 08:00 07/10/16 07:59 06/28/16 08:14 7 UNIT Amiodarone HCl (Cordarone Tab) 200 mg QAM PO 06/13/16 08:00 07/13/16 07:59 06/28/16 08:08 200 MG Acetaminophen (Tylenol Tab) 650 mg Q4H PRN PO 06/13/16 09:30 07/13/16 09:29 06/25/16 16:14 650 MG Clonidine HCl (Catapres Tab) 0.1 mg Q6H PRN PO 06/13/16 17:30 07/13/16 17:29 06/15/16 08:06 0.1 MG Levothyroxine Sodium (Synthroid Tab) 50 mcg DAILYBB PO 06/15/16 06:30 07/15/16 06:29 06/28/16 06:02 50 MCG Sucralfate (Carafate Susp) 1 gm QID PO 06/15/16 12:00 07/15/16 11:59 06/26/16 08:12 1 GM Tramadol HCl (Ultram Tab) 50 mg Q6H PRN PO 06/17/16 18:15 07/17/16 18:14 06/26/16 15:30 50 MG Clonidine HCl (Catapres Tab) 0.1 mg BID PO 06/17/16 22:00 07/17/16 21:59 06/28/16 08:08 0.1 MG Docusate Sodium (coLACE CAP) 100 mg BID PO 06/20/16 20:00 07/20/16 19:59 06/28/16 08:08 100 MG Guaifenesin (Mucinex Contr Rel Tab) 600 mg Q12 PO 06/22/16 21:00 07/22/16 20:59 06/28/16 08:09 600 MG Guaifenesin (Robitussin Sugar Free Syrup) 100 mg Q6H PRN PO 06/23/16 08:15 07/23/16 08:14 06/27/16 19:00 100 MG Ondansetron HCl (Zofran Inj) 4 mg Q4H PRN IV 06/23/16 12:30 07/23/16 12:29 06/25/16 22:55 4 MG Miconazole Nitrate (Desenex Powder) 1 appln PRN PRN EXT 06/24/16 05:00 07/24/16 04:59 06/24/16 09:11 1 APPLN Furosemide (Lasix Tab) 40 mg QAM PO 06/27/16 08:00 07/27/16 07:59 06/28/16 08:08 40 MG Cephalexin Monohydrate (Keflex Cap) 500 mg TID PO 06/26/16 14:00 07/01/16 13:59 06/28/16 13:44 500 MG Ondansetron HCl (Zofran Odt) 8 mg Q4H PRN PO 06/26/16 10:15 07/26/16 10:14 Sertraline HCl (Zoloft Tab) 50 mg QAM PO 06/27/16 08:00 07/27/16 07:59 06/28/16 08:08 50 MG Mirtazapine (Remeron Tab) 15 mg HS PO 06/26/16 21:00 07/26/16 20:59 06/27/16 21:15 15 MG Warfarin Sodium (Coumadin Tab) 3 mg DAILY@16 PO 06/27/16 16:00 07/27/16 15:59 06/28/16 15:54 3 MG
[2016-06-28] MEDS ORDERED: FUROSEMIDE 20 MG TAB PO ONE (22:00)
[2016-06-29] VITALS (14 sets, daily range): BP systolic 119–180; BP diastolic 63–79; PULSE 54–69; TEMP 36.4–37.1; O2SAT 94–99
[2016-06-29] MEDS: ALBUT/IPRATROP 3MG/0.5MG NEB 3 ML VIAL INH PRN ×5 (01:34→22:26)
[2016-06-29] MEDS: LEVOTHYROXINE 50 MCG TAB PO SCH (05:54)
[2016-06-29] MEDS: ACETAMINOPHEN 325 MG TAB PO PRN (05:54)
[2016-06-29] MEDS: ONDANSETRON INJ 2 MG/ML 2 ML VIAL IV PRN ×2 (05:54→20:53)
--- NOTE | 2016-06-29 07:10 | DIAGNOSTIC IMAGING REPORT ---
CHEST ONE VIEW PORTABLE CLINICAL HISTORY: Shortness of breath COMPARISON STUDY: 06/22/2016 FINDINGS: The heart remains enlarged. There is a left subclavian dual-chamber central venous pacemaker present. There is a persistent left pleural effusion with left lower lobe atelectasis/consolidation.[ There is improving pulmonary vascular congestion. IMPRESSION: 1. Improving pulmonary vascular congestion 2. Persistent left pleural effusion with associated left lower lobe atelectasis/consolidation Electronically signed by: Yvan Gupta M.D. 06/29/2016 7:08 AM Dictated Date/Time: 06/29/2016 7:07 AM
[2016-06-29 08:47] LABS: INR 2.4 (0.9-1.1); PROTHROMBIN TIME (PATIENT) 26.7 SECONDS (9.0-12.0)
[2016-06-29 09:07] LABS: BUN/CREATININE RATIO 22.5 (10-20); CALCIUM 8.4 mg/dl (8.5-10.1); CREATININE 0.65 mg/dl (0.60-1.20); POTASSIUM 3.7 mmol/L (3.5-5.1)
[2016-06-29] MEDS: INSULIN ASPART 100 UNITS/ML 3 ML PEN SC SCH ×3 (09:33→18:36)
[2016-06-29] MEDS: SUCRALFATE 1 GM/10 ML UDC PO SCH ×4 (09:34→20:43)
[2016-06-29] MEDS: INSULIN GLARGINE SOLOSTAR 100 UNITS/ML 3 ML PEN SC SCH (09:34)
[2016-06-29] MEDS: DOCUSATE SODIUM 100 MG CAP PO SCH ×2 (09:37→20:40)
[2016-06-29] MEDS: CLONIDINE HCL 0.1 MG TAB PO SCH ×2 (09:37→20:40)
[2016-06-29] MEDS: AMIODARONE 200 MG TAB PO SCH (09:38)
[2016-06-29] MEDS: CEPHALEXIN MONOHYDRATE 500 MG CAP PO SCH ×3 (09:38→20:40)
[2016-06-29] MEDS: METOPROLOL TARTRATE 50 MG TAB PO SCH ×2 (09:39→20:40)
[2016-06-29] MEDS: FUROSEMIDE 40 MG TAB PO SCH (09:39)
[2016-06-29] MEDS: PANTOprazole SOD 40 MG TAB PO SCH ×2 (09:40→20:40)
[2016-06-29] MEDS: SERTRALINE HCL 50 MG TAB PO SCH (09:40)
[2016-06-29] MEDS: GUAIFENESIN 600 MG TABCR PO SCH ×2 (09:41→20:40)
[2016-06-29] MEDS ORDERED: NURSING VERBAL MED ORDER ONE (10:15)
[2016-06-29] MEDS ORDERED: SOD PHOSPHATE/SOD BIPHOSPHATE ENEMA 132 ML BTL PR ONE (10:15)
--- NOTE | 2016-06-29 10:30 | SURGERY PROGRESS NOTE ---
DATE: 06/29/2016 DATE: 06/29/2016. Ms. Robledo is now on room air. Her incision is clean. She is tolerating a diet. Her x-ray still has some opacities in the left base from today. It appears that it does look a bit better from a pulmonary vascular standpoint. Hopefully we will get her to a [facility] in the near future.
[2016-06-29] MEDS: TRAMADOL HCL 50 MG TAB PO PRN (15:48)
[2016-06-29] MEDS: WARFARIN SOD 3 MG TAB PO SCH (15:51)
--- NOTE | 2016-06-29 17:21 | Progress Note ---
Medicine Progress Note Date & Time of Visit: Jun 29, 2016 at 17:10. Subjective Pt was seen and examined Sitting in chair with no distress Pt said that her breathing feels a little better today compare to yesterday She said that she had a BM today denies any chest pain, palpitation and dizziness Objective Last 8 Hrs Date Time Temp Pulse Resp B/P Pulse Ox O2 Delivery O2 Flow Rate FiO2 06/29/16 16:00 Nasal Cannula 2.0 06/29/16 15:54 36.4 63 18 119/69 95 Nasal Cannula 2.0 06/29/16 14:20 54 16 97 Nasal Cannula 2.0 06/29/16 12:21 158/69 06/29/16 12:09 180/70 06/29/16 11:36 37.0 66 20 165/71 97 Nasal Cannula 2.0 06/29/16 11:15 60 16 96 Nasal Cannula 2.0 06/29/16 09:48 65 Physical Exam: General- no acute distress Head- atraumatic Eyes- PERRL, EOMI ENT- oropharynx clear Neck- supple, no JVD Lungs- poor air entry Heart- irregular rhythm; no murmur Abdomen- normal bowel sounds, soft Extremities- no calf tenderness, +edema Neuro- alert, oriented, PERRL, EOMI Skin- warm & dry Laboratory Results: Last 24 Hours Test 06/28/16 19:52 06/29/16 07:48 06/29/16 08:30 06/29/16 13:14 Bedside Glucose 192 mg/dl 160 mg/dl 260 mg/dl Prothrombin Time 26.7 SECONDS Prothromb Time International Ratio 2.4 Sodium Level 143 mmol/L Potassium Level 3.7 mmol/L Chloride Level 101 mmol/L Carbon Dioxide Level 33 mmol/L Anion Gap 9.0 mmol/L Blood Urea Nitrogen 15 mg/dl Creatinine 0.65 mg/dl Est Creatinine Clear Calc Drug Dose 75.0 ml/min Estimated GFR () 96.5 Estimated GFR (Non- 83.3 BUN/Creatinine Ratio 22.5 Random Glucose 167 mg/dl Calcium Level 8.4 mg/dl Assessment & Plan Depression Zoloft and Remeron restarted Tolerated med well- continue current management Psychiatry consulted Stable Leukocytosis Likely secondary to UTI urine growth to proteus mirabilis Started on Cipro and changed to Ceftriaxone as per sensitivity abx was changed to keflex on 06/26 stable Respiratory failure with hypoxia CXR showed no change in appearance of the chest. Persistent bilateral pleural effusions and left basilar opacity which could reflect atelectasis or consolidation. Started on IV Clinda and completed abx course,Nebs and Mucomyst She had a surgical repair done for her hiatal hernia by Dr. Rosas on 05/30/16 Continue having episodic sob continue oxygen supplement Condition improved a lot Clinically much better today Continue PT/OT 3/2 Breathing feels better today Continue lasix CXR done this morning showed improved pulmonary vascular congestion Persistent left pleural effusion continue monitor ACUTE DVT , RIGHT UPPER ARM-about 6 weeks of treatment -Doppler US: 1. Interval healing right-sided PICC catheter 2. Right upper extremity DVT with involvement of subclavian, axillary, brachial, basilic and cephalic veins. - discussed with Cardiology regarding history of pericardial hemorrhage in 2014 associated with PM placement, ok to anticoagulate has history of subdural hemorrhage in 2015 s/p mechanical fall, repeat CT head March 2016 showed resolution - will start Heparin full dose -Hematology consult -check Leg Dopplers to r/o DVT -Has been on Heparin and Coumadin -was changed to Lovenox and Coumadin -has had one episode of questionable hemoptysis-hold Lovenox now -no more Hemoptysis the next day -Lovenox restarted -INR therapeutic today 06/23/16 -D/C Lovenox tomorrow if INR >2 -Lovenox discontinued -INR 2.4 -continue Coumadin -Coumadin 3 mg daily -likely to continue for 6 weeks ,will discuss with dr Guadarrama as she has H/O Hemorrhagic Pericarditis in past Severe Belching-for a long time Mostly due to hiatal hernia s/p status post left thoracotomy with Belsey Ojse IV repair on 05/30/[address] Rosas s/p removal NG tube and chest tube removal Barium Swallow did show lower Esophageal narrowing likely due to post surgical edema Belching is improved Tolerating diet Will have occasional attacks of belching and SOB as observed during her hospital stay Needs to be managed symptomatically Her belching is better Stable Hx of a .fib Rate is controlled Continue Amiodarone and coumadin INR today 2.4 Continue monitor INR Stable ARF Creatine has been stable lasix resumed continue monitor BMP as an outpatient HTN Continue BP med BP stable Nutrition Started on liquid diet and will continue till of this month Can advance diet as tolerated Now with Soft diet Medically stable to be discharged Thrombocytopenia HIT studies-negative platelet wnl stable Hospital course so far: Intial presentation with ACUTE HYPOXIC RESPIRATORY FAILURE, LIKELY MULTIFACTORIAL DUE TO ACUTE DIASTOLIC CHF AND/OR COPD EXACERBATION Presented with cough and SOB x 3 days; influenza outbreak at [facility] however patient has been on prophylactic Tamilfu since 05/05 87% on room air on arrival, improved with oxygen 2L via NC Treated with steroids, Lasix and abx ECHO did not show any significant change compared with prior test Appreciate Cardiology input Cardiology started on lower dose Losartan which was stopped secondary to arf and hyperkalemia Requiring oxygen while sleeping on nocturna pulse ox study Prednisone on a tapering dose Appreciate Pulmonary input MITRAL VALVE ANOMALY ECHO::ECHO:: * Sinus rhythm was present during the echocardiogram. * There is a 0.6cm x 0.6cm mobile echodensity attached to ventricular surface of the mitral valve annulus near the left ventricular outflow tract. * Calcified mitral apparatus. * The aortic valve is moderately calcified. * Mild valvular aortic stenosis. * Moderate aortic regurgitation. * The left ventricular wall motion is normal. * Ejection Fraction = 60-65%. * Grade I diastolic dysfunction, (abnormal relaxation pattern). * Compared to the most recent echocardiogram, the echodensity is unchanged. cardiology on board stable cardiac condition ATRIAL FIBRILLATION on amiodarone and metoprolol rate controlled Not anticoagulated due to hx of hemorrhagic pericardial effusion and subdural hematoma s/p fall was on amiodarone drip post surgery back on po amiodarone maintenance dose SSS S/P PACER no acute issues ARF' baseline cr 1.2 to 1.3 Monitor labs. DM hgb a1c 7.0 03/2016 oral agents on hold. SSI while hospitalized will monitor GERD, HIATAL HERNIA on PPI/H2 filipe HYPOTHYROIDISM on levothyroxine DEPRESSION on sertraline DVT PROPHYLAXIS Now on Heparin and Coumadin CODE STATUS DNR DISPO: social service for d/c planning Continue PT/OT Possible discharge tomorrow to [facility] Consultants: Cardiology Thoracic surgeon Current Inpatient Medications: Current Inpatient Medications Medications (Trade) Dose Ordered Sig/Srinivas Route Start Time Stop Time Status Last Admin Dose Admin Albuterol/ Ipratropium (Duoneb) 3 ml Q2H PRN INH 06/01/16 09:30 07/01/16 09:29 06/29/16 14:23 3 ML Heparin Sodium (Porcine) (Heparin 10 Unit/ ml 5 ml Flush) 5 ml PRN PRN FLUSH 06/02/16 13:15 07/02/16 13:14 06/23/16 06:10 5 ML Pantoprazole Sodium (Protonix Tab) 40 mg BID PO 06/03/16 21:00 07/03/16 20:59 06/29/16 09:40 40 MG Metoprolol Tartrate (Lopressor Tab) 50 mg BID PO 06/03/16 21:00 07/03/16 20:59 06/29/16 09:39 50 MG Hydralazine HCl (HydrALAZINE INJ) 5 mg Q6 PRN IV. 06/03/16 20:15 07/03/16 20:14 06/29/16 00:36 5 MG Insulin Aspart (novoLOG ASPART) SLIDING SCALE G... ACHS SC 06/03/16 21:00 06/29/16 17:59 06/29/16 13:20 6 UNITS Albuterol Sulfate (Ventolin 0.083% 2.5MG/3ML Neb) 2.5 mg Q6R PRN INH 06/05/16 11:30 07/05/16 11:29 06/21/16 12:07 2.5 MG Prednisone (PredniSONE TAB) 10 mg DAILY PO 06/07/16 09:00 07/07/16 08:59 06/29/16 09:40 10 MG Heparin Sodium (Porcine) (Heparin 10 Unit/ ml 5 ml Flush) 5 ml PRN PRN FLUSH 06/08/16 11:15 07/08/16 11:14 06/21/16 06:49 5 ML Insulin Glargine (Lantus Solostar Pen) 7 unit DAILY SC 06/10/16 08:00 07/10/16 07:59 06/29/16 09:34 7 UNIT Amiodarone HCl (Cordarone Tab) 200 mg QAM PO 06/13/16 08:00 07/13/16 07:59 06/29/16 09:38 200 MG Acetaminophen (Tylenol Tab) 650 mg Q4H PRN PO 06/13/16 09:30 07/13/16 09:29 06/29/16 05:54 650 MG Clonidine HCl (Catapres Tab) 0.1 mg Q6H PRN PO 06/13/16 17:30 07/13/16 17:29 06/15/16 08:06 0.1 MG Levothyroxine Sodium (Synthroid Tab) 50 mcg DAILYBB PO 06/15/16 06:30 07/15/16 06:29 06/29/16 05:54 50 MCG Sucralfate (Carafate Susp) 1 gm QID PO 06/15/16 12:00 07/15/16 11:59 06/26/16 08:12 1 GM Tramadol HCl (Ultram Tab) 50 mg Q6H PRN PO 06/17/16 18:15 07/17/16 18:14 06/29/16 15:48 50 MG Clonidine HCl (Catapres Tab) 0.1 mg BID PO 06/17/16 22:00 07/17/16 21:59 06/29/16 09:37 0.1 MG Docusate Sodium (coLACE CAP) 100 mg BID PO 06/20/16 20:00 07/20/16 19:59 06/29/16 09:37 100 MG Guaifenesin (Mucinex Contr Rel Tab) 600 mg Q12 PO 06/22/16 21:00 07/22/16 20:59 06/29/16 09:41 600 MG Guaifenesin (Robitussin Sugar Free Syrup) 100 mg Q6H PRN PO 06/23/16 08:15 07/23/16 08:14 06/27/16 19:00 100 MG Ondansetron HCl (Zofran Inj) 4 mg Q4H PRN IV 06/23/16 12:30 07/23/16 12:29 06/29/16 05:54 4 MG Miconazole Nitrate (Desenex Powder) 1 appln PRN PRN EXT 06/24/16 05:00 07/24/16 04:59 06/24/16 09:11 1 APPLN Furosemide (Lasix Tab) 40 mg QAM PO 06/27/16 08:00 07/27/16 07:59 06/29/16 09:39 40 MG Cephalexin Monohydrate (Keflex Cap) 500 mg TID PO 06/26/16 14:00 07/01/16 13:59 06/29/16 13:22 500 MG Ondansetron HCl (Zofran Odt) 8 mg Q4H PRN PO 06/26/16 10:15 07/26/16 10:14 Sertraline HCl (Zoloft Tab) 50 mg QAM PO 06/27/16 08:00 07/27/16 07:59 06/29/16 09:40 50 MG Mirtazapine (Remeron Tab) 15 mg HS PO 06/26/16 21:00 07/26/16 20:59 06/28/16 20:33 15 MG Warfarin Sodium (Coumadin Tab) 3 mg DAILY@16 PO 06/27/16 16:00 07/27/16 15:59 06/29/16 15:51 3 MG
[2016-06-29] MEDS ORDERED: FUROSEMIDE 20 MG TAB PO ONE (20:00)
[2016-06-29] MEDS: MIRTAZAPINE TAB 15 MG TAB PO SCH (20:41)
[2016-06-30 00:45] VITALS: BP 158/72; PULSE 62
[2016-06-30] MEDS: LEVOTHYROXINE 50 MCG TAB PO SCH (06:40)
[2016-06-30 07:04] VITALS: PULSE 62; O2SAT 96
[2016-06-30] MEDS: ALBUT/IPRATROP 3MG/0.5MG NEB 3 ML VIAL INH PRN ×2 (07:04→11:06)
[2016-06-30 07:29] LABS: HEMATOCRIT 29.7 % (37-47); MEAN CELL VOLUME 100.7 fL (80-100); MEAN CORPUSCULAR HEMOGLOBIN 29.8 pg (25-34); MEAN CORPUSCULAR HGB CONC 29.6 g/dl (32-36); PLATELET COUNT 178 K/uL (130-400); RED BLOOD COUNT 2.95 M/uL (4.2-5.4); WHITE BLOOD COUNT 9.69 K/uL (4.8-10.8)
[2016-06-30] MEDS ORDERED: NURSING VERBAL MED ORDER ONE (07:30)
[2016-06-30 07:40] LABS: INR 2.4 (0.9-1.1)
[2016-06-30] MEDS: SUCRALFATE 1 GM/10 ML UDC PO SCH ×2 (08:00→12:34)
[2016-06-30] MEDS: DOCUSATE SODIUM 100 MG CAP PO SCH (08:45)
[2016-06-30] MEDS: GUAIFENESIN 600 MG TABCR PO SCH (08:45)
[2016-06-30] MEDS: PANTOprazole SOD 40 MG TAB PO SCH (08:46)
[2016-06-30] MEDS: AMIODARONE 200 MG TAB PO SCH (08:46)
[2016-06-30] MEDS: FUROSEMIDE 40 MG TAB PO SCH (08:47)
[2016-06-30] MEDS: CLONIDINE HCL 0.1 MG TAB PO SCH (08:48)
[2016-06-30] MEDS: CEPHALEXIN MONOHYDRATE 500 MG CAP PO SCH (08:48)
[2016-06-30] MEDS: SERTRALINE HCL 50 MG TAB PO SCH (08:50)
[2016-06-30] MEDS: METOPROLOL TARTRATE 50 MG TAB PO SCH (08:50)
[2016-06-30] MEDS: INSULIN ASPART 100 UNITS/ML 3 ML PEN SC SCH ×2 (09:02→12:34)
[2016-06-30] MEDS: INSULIN GLARGINE SOLOSTAR 100 UNITS/ML 3 ML PEN SC SCH (09:03)
[2016-06-30 09:17] VITALS: BP 146/72; PULSE 63; TEMP 37.2; O2SAT 98
[2016-06-30 11:07] VITALS: PULSE 63; O2SAT 95
[2016-06-30] MEDS ORDERED: ZLF50 PO (11:52)
[2016-06-30] MEDS ORDERED: KFL500 PO (11:52)
[2016-06-30] MEDS ORDERED: CMD3 PO (11:52)
--- NOTE | 2016-06-30 12:02 | Psychiatric Progress Notes ---
Psychiatric Progress Note Date of Service Jun 30, 2016. Notes ID: Patient reviewed with liaison nurse. Initial consult by DELILAH Arellano dated 06/26 reviewed. Zoloft and Remeron restarted. CC: "they don't tell me what's up" when mentioned possible discharge to [facility] HPI: denies issues over night, not particularly hungry, denies medication side effects ROS: denies sedation, some left arm swelling MSE: alert, cooperative, oriented, thoughts reality based, no SI/HI/luciano. Imp: MDD with anxiety Plan: continue Zoloft and Remeron, wouldn't titrate for at least 1 week given other issues. Given ?hx of sedation with Remeron and risk of weight gain would titrate Zoloft over Remeron.
--- NOTE | 2016-06-30 12:05 | Discharge Instructions ---
Discharge Instructions Admission Reason for Admission: Acute Respiratory Failure W/ Hypoxia Discharge Discharge Diagnosis / Problem: (1) CHF (congestive heart failure) (2) Hypoxia (3) CKD (chronic kidney disease), stage III (4) S/P hernia repair (5) Atrial fibrillation (6) COPD (chronic obstructive pulmonary disease) VTE Date & Time Date of VTE Diagnosis: Jun 19, 2016 Time of VTE Diagnosis: 14:54 Discharge Goals Goal(s): Decrease discomfort, Improve function, Improve disease control Activity Recommendations Activity Limitations: resume your previous activity (as tolerated) . Instructions / Follow-Up Instructions / Follow-Up Please schedule follow up appointment with your primary care physician once discharge from rehab Continue PT/OT Fall precaution Follow up with Cardiology and pulmonary once discharge from rehab Complete 2 more days of keflex to complete abx course INR today 2.4, continue coumadin 3 mg Check INR on Sunday Check BMP within 1 week to monitor kidney function and sodium Call your physician or Seek medical attention if you develop any blood in your stool or urine Continue oxygen supplement at 2L NC for now Medication Instructions: * Warfarin is a medicine prescribed to prevent blood clots * Warfarin will thin your blood and help prevent new clots * Take your medications exactly as directed * Never skip a dose. Never take a double dose. If you miss a dose, take it as soon as you remember * It is important for your doctor to monitor your prothrombin time (PT). This is a lab test * Keep your appointment for lab tests Risk of Adverse Drug Reactions and Interactions: * Warfarin increases your risk of bleeding * The food you eat and other medications you take can affect how Warfarin works in your body * Ask your doctor about daily aspirin therapy * It is very important to talk with your doctor about all of the other medicines , antibiotics, vitamins or herbal products that you are taking * All of your medication must be approved by your doctor, including new medicines, as well as medicines you have taken before you started taking Warfarin Diet: * In order for Warfarin to work properly, it is important to keep your intake of Vitamin K as consistent as possible * You should avoid any sudden change in Vitamin K intake * Report any significant changes in your diet or weight to your doctor Call your Primary Care doctor if you experience any of the following: * Swelling or Pain in your leg * Sudden, continuous pain deep in a muscle * Pain that worsens when you are active or when you stand still for a long time * Chest Pain * Sudden Shortness of Breath * Rapid or pounding heart beat * Fainting * Dizziness * Cough with blood or bloody sputum * Sweating more than normal * Bruises * Heavy or uncontrolled bleeding * Blood in your urine, stool or vomit * Black or tarry stools Caring for Your Self at Home: * Avoid sitting, standing or lying down for long periods without moving your legs and feet * When traveling by car, stop to get out and move around at least once every 3 hours * On long airplane, train or bus rides, get up and move around when possible * If you can't get up, wiggle your toes and tighten your calves to keep your blood moving Follow Up: It is important for you to keep your follow up appointments with your medical provider. Current Hospital Diet Patient's current hospital diet: Diabetes Type 2 Diet Discharge Diet Recommended Diet: AHA Diet (Heart Healthy), Diabetes Type 2 Diet Procedures Procedures Performed: Left Thoracotomy, Belsey Jose IV Diaphramatic Repair Pending Studies Studies pending at discharge: no Laboratory Results Hemoglobin A1c Test 04/09/16 05:12 Range/Units Estimated Average Glucose 154 mg/dl Hemoglobin A1c 7.0 H 4.5-5.6 % Medical Emergencies . Who to Call and When: Medical Emergencies: If at any time you feel your situation is an emergency, please call 911 immediately. . Non-Emergent Contact Non-Emergency issues call your: Primary Care Provider Call Non-Emergent contact if: you have any medication questions . . "Provider Documentation" section prepared by Sven Gillespie. VTE Core Measure Inpt VTE Proph given/why not?: Warfarin (Coumadin), SCD's Reason no anticoag overlap I/P: Treatment provided - N/A Reason no anticoag overlap @DC: Treatment provided - N/A
[2016-06-30] MEDS ORDERED: PRD10 PO (12:08)
[2016-06-30] MEDS ORDERED: TRAM-10 PO (12:10)
--- NOTE | 2016-06-30 12:27 | Progress Note ---
Medicine Progress Note Date & Time of Visit: Jun 30, 2016 at 11:19. Subjective Pt was seen and examined lying in bed with no acute distress Pt thought that she was going to be transfer to [facility] I explained to pt that her insurance denied for [facility] Pt said that her breathing feels the same denies any chest pain, palpitation and dizziness Objective Last 8 Hrs Date Time Temp Pulse Resp B/P Pulse Ox O2 Delivery O2 Flow Rate FiO2 06/30/16 11:07 63 18 95 Nasal Cannula 2.0 06/30/16 10:03 20 06/30/16 09:17 37.2 63 26 146/72 98 Nasal Cannula 2.0 Humidified Oxygen 06/30/16 08:00 Nasal Cannula 2.0 06/30/16 07:04 62 18 96 Nasal Cannula 2.0 Physical Exam: General- no acute distress Head- atraumatic Eyes- PERRL, EOMI ENT- oropharynx clear Neck- supple, no JVD Lungs- poor air entry Heart- irregular rhythm; no murmur Abdomen- normal bowel sounds, soft Extremities- no calf tenderness, +edema Neuro- alert, oriented, PERRL, EOMI Skin- warm & dry Laboratory Results: Last 24 Hours Test 06/29/16 13:14 06/29/16 16:43 06/29/16 19:33 06/30/16 07:05 Bedside Glucose 260 mg/dl 214 mg/dl 192 mg/dl White Blood Count 9.69 K/uL Red Blood Count 2.95 M/uL Hemoglobin 8.8 g/dL Hematocrit 29.7 % Mean Corpuscular Volume 100.7 fL Mean Corpuscular Hemoglobin 29.8 pg Mean Corpuscular Hemoglobin Concent 29.6 g/dl RDW Standard Deviation 64.7 fL RDW Coefficient of Variation 17.5 % Platelet Count 178 K/uL Mean Platelet Volume 9.0 fL Nucleated RBC Absolute Count (auto) 0.05 K/uL Nucleated Red Blood Cells % 0.5 % Prothrombin Time 27.0 SECONDS Prothromb Time International Ratio 2.4 Test 06/30/16 08:12 Bedside Glucose 186 mg/dl Assessment & Plan Depression Zoloft and Remeron restarted Tolerated med well- continue current management Psychiatry consulted Stable Leukocytosis Likely secondary to UTI urine growth to proteus mirabilis Started on Cipro and changed to Ceftriaxone as per sensitivity abx was changed to keflex on 06/26 stable Respiratory failure with hypoxia CXR showed no change in appearance of the chest. Persistent bilateral pleural effusions and left basilar opacity which could reflect atelectasis or consolidation. Started on IV Clinda and completed abx course,Nebs and Mucomyst She had a surgical repair done for her hiatal hernia by Dr. Rosas on 05/30/16 Continue having episodic sob continue oxygen supplement Condition improved a lot Clinically much better today Continue PT/OT 3/2 Breathing feels better today Continue lasix CXR done this morning showed improved pulmonary vascular congestion Persistent left pleural effusion continue monitor ACUTE DVT , RIGHT UPPER ARM-about 6 weeks of treatment -Doppler US: 1. Interval healing right-sided PICC catheter 2. Right upper extremity DVT with involvement of subclavian, axillary, brachial , basilic and cephalic veins. - discussed with Cardiology regarding history of pericardial hemorrhage in 2014 associated with PM placement, ok to anticoagulate has history of subdural hemorrhage in 2015 s/p mechanical fall, repeat CT head March 2016 showed resolution - was starting Heparin full dose -Hematology consult -Has been on Heparin and Coumadin -was changed to Lovenox and Coumadin -has had one episode of questionable hemoptysis-hold Lovenox now -no more Hemoptysis the next day -Lovenox restarted -INR therapeutic today 06/23/16 -D/C Lovenox tomorrow if INR >2 -Lovenox discontinued -INR 2.4 -continue Coumadin -Coumadin 3 mg daily -likely to continue for 6 weeks ,will discuss with dr Guadarrama as she has 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 Rosas s/p removal NG tube and chest tube removal Barium Swallow did show lower Esophageal narrowing likely due to post surgical edema Belching is improved Tolerating diet Will have occasional attacks of belching and SOB as observed during her hospital stay Needs to be managed symptomatically Her belching is better Stable Hx of a .fib Rate is controlled Continue Amiodarone and coumadin INR today 2.4 Continue monitor INR Stable ARF Creatine has been stable lasix resumed continue monitor BMP as an outpatient HTN Continue BP med BP stable Nutrition Started on liquid diet and will continue till of this month Can advance diet as tolerated Now with Soft diet Medically stable to be discharged Thrombocytopenia HIT studies-negative platelet wnl stable Hospital course so far: Intial presentation with ACUTE HYPOXIC RESPIRATORY FAILURE, LIKELY MULTIFACTORIAL DUE TO ACUTE DIASTOLIC CHF AND/OR COPD EXACERBATION Presented with cough and SOB x 3 days; influenza outbreak at long-term however patient has been on prophylactic Tamilfu since 05/05 87% on room air on arrival, improved with oxygen 2L via NC Treated with steroids, Lasix and abx ECHO did not show any significant change compared with prior test Appreciate Cardiology input Cardiology started on lower dose Losartan which was stopped secondary to ARF and hyperkalemia Requiring oxygen while sleeping on nocturna pulse ox study Prednisone on a tapering dose Appreciate Pulmonary input MITRAL VALVE ANOMALY ECHO::ECHO:: * Sinus rhythm was present during the echocardiogram. * There is a 0.6cm x 0.6cm mobile echodensity attached to ventricular surface of the mitral valve annulus near the left ventricular outflow tract. * Calcified mitral apparatus. * The aortic valve is moderately calcified. * Mild valvular aortic stenosis. * Moderate aortic regurgitation. * The left ventricular wall motion is normal. * Ejection Fraction = 60-65%. * Grade I diastolic dysfunction, (abnormal relaxation pattern). * Compared to the most recent echocardiogram, the echodensity is unchanged. cardiology on board stable cardiac condition ATRIAL FIBRILLATION on amiodarone and metoprolol rate controlled Not anticoagulated due to hx of hemorrhagic pericardial effusion and subdural hematoma s/p fall was on amiodarone drip post surgery back on po amiodarone maintenance dose SSS S/P PACER no acute issues ARF' baseline cr 1.2 to 1.3 Monitor labs. DM hgb a1c 7.0 03/2016 oral agents on hold. SSI while hospitalized will monitor GERD, HIATAL HERNIA on PPI/H2 filipe HYPOTHYROIDISM on levothyroxine DEPRESSION on sertraline DVT PROPHYLAXIS Now on Heparin and Coumadin CODE STATUS DNR DISPO: social service for d/c planning Continue PT/OT Possible discharge to [facility] today Consultants: Cardiology Thoracic surgeon Current Inpatient Medications: Current Inpatient Medications Medications (Trade) Dose Ordered Sig/Srinivas Route Start Time Stop Time Status Last Admin Dose Admin Albuterol/ Ipratropium (Duoneb) 3 ml Q2H PRN INH 06/01/16 09:30 07/01/16 09:29 06/30/16 11:06 3 ML Heparin Sodium (Porcine) (Heparin 10 Unit/ ml 5 ml Flush) 5 ml PRN PRN FLUSH 06/02/16 13:15 07/02/16 13:14 06/23/16 06:10 5 ML Pantoprazole Sodium (Protonix Tab) 40 mg BID PO 06/03/16 21:00 07/03/16 20:59 06/30/16 08:46 40 MG Metoprolol Tartrate (Lopressor Tab) 50 mg BID PO 06/03/16 21:00 07/03/16 20:59 06/30/16 08:50 50 MG Hydralazine HCl (HydrALAZINE INJ) 5 mg Q6 PRN IV. 06/03/16 20:15 07/03/16 20:14 06/29/16 00:36 5 MG Albuterol Sulfate (Ventolin 0.083% 2.5MG/3ML Neb) 2.5 mg Q6R PRN INH 06/05/16 11:30 07/05/16 11:29 06/21/16 12:07 2.5 MG Prednisone (PredniSONE TAB) 10 mg DAILY PO 06/07/16 09:00 07/07/16 08:59 06/30/16 08:48 10 MG Heparin Sodium (Porcine) (Heparin 10 Unit/ ml 5 ml Flush) 5 ml PRN PRN FLUSH 06/08/16 11:15 07/08/16 11:14 06/21/16 06:49 5 ML Insulin Glargine (Lantus Solostar Pen) 7 unit DAILY SC 06/10/16 08:00 07/10/16 07:59 06/30/16 09:03 7 UNIT Amiodarone HCl (Cordarone Tab) 200 mg QAM PO 06/13/16 08:00 07/13/16 07:59 06/30/16 08:46 200 MG Acetaminophen (Tylenol Tab) 650 mg Q4H PRN PO 06/13/16 09:30 07/13/16 09:29 06/29/16 05:54 650 MG Clonidine HCl (Catapres Tab) 0.1 mg Q6H PRN PO 06/13/16 17:30 07/13/16 17:29 06/15/16 08:06 0.1 MG Levothyroxine Sodium (Synthroid Tab) 50 mcg DAILYBB PO 06/15/16 06:30 07/15/16 06:29 06/30/16 06:40 50 MCG Sucralfate (Carafate Susp) 1 gm QID PO 06/15/16 12:00 07/15/16 11:59 06/26/16 08:12 1 GM Tramadol HCl (Ultram Tab) 50 mg Q6H PRN PO 06/17/16 18:15 07/17/16 18:14 06/29/16 15:48 50 MG Clonidine HCl (Catapres Tab) 0.1 mg BID PO 06/17/16 22:00 07/17/16 21:59 06/30/16 08:48 0.1 MG Docusate Sodium (coLACE CAP) 100 mg BID PO 06/20/16 20:00 07/20/16 19:59 06/30/16 08:45 100 MG Guaifenesin (Mucinex Contr Rel Tab) 600 mg Q12 PO 06/22/16 21:00 07/22/16 20:59 06/30/16 08:45 600 MG Guaifenesin (Robitussin Sugar Free Syrup) 100 mg Q6H PRN PO 06/23/16 08:15 07/23/16 08:14 06/27/16 19:00 100 MG Ondansetron HCl (Zofran Inj) 4 mg Q4H PRN IV 06/23/16 12:30 07/23/16 12:29 06/29/16 20:53 4 MG Miconazole Nitrate (Desenex Powder) 1 appln PRN PRN EXT 06/24/16 05:00 07/24/16 04:59 06/24/16 09:11 1 APPLN Furosemide (Lasix Tab) 40 mg QAM PO 06/27/16 08:00 07/27/16 07:59 06/30/16 08:47 40 MG Cephalexin Monohydrate (Keflex Cap) 500 mg TID PO 06/26/16 14:00 07/01/16 13:59 06/30/16 08:48 500 MG Ondansetron HCl (Zofran Odt) 8 mg Q4H PRN PO 06/26/16 10:15 07/26/16 10:14 Sertraline HCl (Zoloft Tab) 50 mg QAM PO 06/27/16 08:00 07/27/16 07:59 06/30/16 08:50 50 MG Mirtazapine (Remeron Tab) 15 mg HS PO 06/26/16 21:00 07/26/16 20:59 06/29/16 20:41 15 MG Warfarin Sodium (Coumadin Tab) 3 mg DAILY@16 PO 06/27/16 16:00 07/27/16 15:59 06/29/16 15:51 3 MG Insulin Aspart (novoLOG ASPART) SLIDING SCALE G... ACHS SC 06/30/16 08:00 07/30/16 07:59 06/30/16 09:02 4 UNITS
--- NOTE | 2016-06-30 12:27 | Discharge Summary ---
Discharge Summary Date of Service Jun 30, 2016. Discharge Summary Admission Date: May 13, 2016 at 18:26 Discharge Date: Jun 30, 2016 Discharge Disposition: Rehab Principal Diagnosis: Respiratory failure with hypoxia Secondary Diagnoses/Problems: COPD exacerbation Acute diastolic heart failure Acute kidney failure S/P hiatal hernia repair Hx of Afib UTI DVT of right upper extremity HTN DM Type 2 Depression Thrombocytopenia Procedures: Left thoracotomy with Belsey Jose IV repair. [~ rep ct add3]] ULTRASOUND venous Doppler ultrasound of the right upper extremity CLINICAL HISTORY: Right arm edema COMPARISON STUDY: No previous studies for comparison. FINDINGS: There is an indwelling right-sided PICC catheter. Thrombus is visualized adjacent to the PICC catheter within the subclavian axillary and brachial veins. There is also nonocclusive thrombus within the selected cephalic vein. No thrombus is visualized within the right internal jugular vein. IMPRESSION: 1. Interval healing right-sided PICC catheter 2. Right upper extremity DVT with involvement of subclavian, axillary, brachial, basilic and cephalic veins. Electronically signed by: Yvan Gupta M.D. CT OF THE CHEST WITHOUT IV CONTRAST CLINICAL HISTORY: Acute respiratory failure with hypoxia. Evaluate hiatal hernia. Pulmonary evaluation before surgery. COMPARISON STUDY: Chest CT April 26, 2015 and chest radiograph May 18, 2016. CT DOSE: 730.96 mGy.cm TECHNIQUE: Axial images of the chest were obtained without IV contrast. Images were reviewed in the axial, sagittal, and coronal planes. IV contrast was not administered for this examination. Oral contrast was administered immediately prior to scan. FINDINGS: This exam is compromised by motion artifact. The heart is moderately enlarged. Note is made of a left subclavian dual-lead pacemaker. There is no pericardial effusion. There is a large sliding hiatal hernia with partially intrathoracic stomach. The gastric cardia, fundus and possible body of the stomach are located within the chest. There is a large amount of debris within the stomach. There is no pneumomediastinum. No enlarged thoracic lymph nodes are present. No pneumothorax or pleural effusion is present. Lungs are suboptimally assessed due to respiratory motion. Central airways are patent. There are numerous small nodules within the lungs. Comparison with prior exams is difficult given motion artifact on prior studies. A left upper lobe nodule measuring 5 mm is noted on image 128 of 321. There are multiple smaller nodules. Scattered subpleural groundglass opacities favor atelectasis. There is no convincing evidence for pneumonia. Visualized portions the upper abdomen partially visualize a complex bowel and fat-containing ventral hernia. The gallbladder is surgically absent. IMPRESSION: 1. Large sliding hiatal hernia with partially intrathoracic stomach. The gastric cardia, fundus and proximal body of the stomach within the chest. Large amount of ingested material within the stomach. 2. Suboptimal evaluation of the lungs due to motion artifact. No convincing evidence for pneumonia. Multiple subcentimeter pulmonary nodules. Comparison with prior exams is difficult given motion artifact on the study. These are probably benign but a follow-up chest CT in 6 months is recommended to ensure stability. 3. Moderate cardiomegaly. No pericardial effusion. No pleural effusion. Electronically signed by: John Quesada M.D. 05/23/2016 6:18 PM Dictated Date/Time: 05/23/2016 6:10 PM ECHO Interpretation Summary * Name: OLIVIA AVERY Study Date: 05/14/2016 01:35 PM BP: 178/83 mmHg * Patient Location: [facility] HR: 57 * : 1935 (M/d/yyyy) Gender: Female Height: 62 in * Age: 80 yrs Ethnicity: [place] Weight: 200 lb * Ordering Physician: Deon Rodriguez DO * Referring Physician: Deon Rodriguez DO * Performed By: Anne Hurt RCS * * Reason For Study: Endocarditis * BSA: 1.9 m2 * -- Conclusions -- * Sinus rhythm was present during the echocardiogram. * There is a 0.6cm x 0.6cm mobile echodensity attached to ventricular surface of the mitral valve annulus near the left ventricular outflow tract. * Calcified mitral apparatus. * The aortic valve is moderately calcified. * Mild valvular aortic stenosis. * Moderate aortic regurgitation. * The left ventricular wall motion is normal. * Ejection Fraction = 60-65%. * Grade I diastolic dysfunction, (abnormal relaxation pattern). * Compared to the most recent echocardiogram, the echodensity is unchanged. Procedure Details * A complete two-dimensional transthoracic echocardiogram was performed (2D, M- mode, Doppler and color flow Doppler). Left Ventricle * The left ventricle is normal in size. * There is moderate concentric left ventricular hypertrophy. * Ejection Fraction = 60-65%. * Left ventricular systolic function is normal. * The left ventricular wall motion is normal. Right Ventricle * The right ventricle is normal size. * The right ventricular systolic function is normal as assessed by tricuspid annular plane systolic excursion (TAPSE) (normal >1.5 cm). Atria * The left atrium is mildly dilated. * Right atrial size is normal. * There is a pacemaker lead in the right atrium. * There is no evidence of atrial septal defect, but resolution does not allow assessment for a patent foramen ovale. Mitral Valve * Calcified mitral apparatus. * There is a 0.6cm x 0.6cm mobile echodensity attached to ventricular surface of the mitral valve annulus near the left ventricular outflow tract. * There is no mitral valve stenosis. * Significant mitral regurgitation is absent. Tricuspid Valve * The tricuspid valve is normal. * There is no tricuspid stenosis. * Significant tricuspid regurgitation is absent. * Doppler findings do not suggest pulmonary hypertension. Aortic Valve * The aortic valve is trileaflet. * The aortic valve is moderately calcified. * Mild valvular aortic stenosis. * Moderate aortic regurgitation. Pulmonic Valve * The pulmonary valve is not well seen, but the Doppler examination is normal without significant regurgitation or stenosis. Great Vessels * The aortic root and proximal ascending aorta are normal sized. Pericardium/Pleural * There is no pericardial effusion. Right Ventricle * There is a pacemaker lead in the right ventricle. Great Vessels * Normal inferior vena cava diameter and respiratory variation suggests normal central venous pressure. * Normal inferior vena cava size and collapsability with sniff indicates a normal right atrial pressure of 3 mmHg Left Ventricular Diastolic Function * Grade I diastolic dysfunction, (abnormal relaxation pattern). Consultations: Cardiology Thoracic surgeon Psych PT/OT Medication Reconciliation New Medications: Cephalexin Monohydrate (Cephalexin) 500 Mg Cap 500 MG PO TID for 2 Days, #6 CAP Prednisone (Prednisone) 10 Mg Tab 10 MG PO DAILY for 30 Days, TAB Sertraline HCl (Sertraline HCl) 50 Mg Tab 50 MG PO QAM for 30 Days, #30 TAB Warfarin Sod (Coumadin) 3 Mg Tab 3 MG PO DAILY@16 for 30 Days, #30 TAB Changed Medications: Tramadol (Ultram) 50 Mg Tab 50 MG PO Q12 PRN for Pain for 7 Days, #14 TAB (Changed from: Q6H) Continued Medications: Acetaminophen Tab (Tylenol) 325 Mg Tab 650 MG PO Q6H PRN for ELBOW & LEG PAIN, TAB NTE 3GM APAP/24HRS Albuterol (Proair Hfa) Aers 2 PUFFS INH Q4H PRN for SOB/Wheezing Lshcw-V-Wxnqazqqvryed (Beano) 1 Tab Tab 2 TABS PO TIDM Amiodarone Hcl (Cordarone) 200 Mg Tab 200 MG PO DAILY, TAB Atorvastatin (Lipitor) 20 Mg Tab 20 MG PO DAILY Benzonatate (Tessalon Perles) 100 Mg Cap 100 MG PO Q6H PRN for Cough, CAP Bisacodyl (Bisac-Evac) 10 Mg Sup 10 MG RE PRN for Constipation Clonidine Hcl (Catapres) 0.1 Mg Tab 0.1 MG PO BID, TAB 1 Refill Cromolyn Sodium 4% Oph (Opticrom Oph) Soln 1 DROP OPB DAILY Ferrous Sulfate (Kp Ferrous Sulfate) 325 Mg Tab 325 MG PO DAILY, TAB 3 Refills Fluticasone Furoate-Vilanterol (Breo Ellipta) 1 Inh Inh 1 PUFF INH DAILY Fluticasone Propionate (Nasal) (Flonase Allergy Relief) 50 Mcg/Act Spr 2 SPRAYS NA DAILY Furosemide (Lasix) 40 Mg Tab 40 MG PO BID, TAB Gabapentin (Neurontin) 100 Mg Cap 100 MG PO TID, CAP Glipizide (Glipizide Er) 2.5 Mg Tab 1 TAB PO DAILY, TAB 5 Refills Guaifenesin Ext Rel (Mucinex Ext Rel) 600 Mg Tab 600 MG PO Q12 PRN for , TAB Hydralazine Hcl (Apresoline) 25 Mg Tab 25 MG PO TID for 30 Days, #90 TAB 5 Refills Hydrocortisone Acetate (Rectal (Anucort-Hc) 25 Mg Sup 25 MG PO DAILY PRN for Hemorrhoids Ipratropium-Albuterol (Duoneb) 3 Ml Nebu 1 TREATMENT INH QID PRN for SOB/Wheezing, INHA Lactulose (Chronulac) 10 Gm/15 Ml Syrp 15 ML PO DAILY Levocetirizine Dihydrochloride (Xyzal) 5 Mg Tab 5 MG PO QPM Levothyroxine Sodium (Synthroid) 50 Mcg Tab 1 TAB PO DAILY, TAB 5 Refills Magnesium Hydroxide (Milk Of Magnesia) 30 Ml Susp 30 ML PO DAILY PRN for Constipation, ML Metoprolol Tartrate (Lopressor) (Lopressor) 50 Mg Tab 50 MG PO BID, #56 Mirtazapine (Mirtazapine) 15 Mg Tab 15 MG PO HS, #28 Montelukast Sodium (Singulair) 10 Mg Tab 10 MG PO DAILY, TAB Nitroglycerin (Nitrostat) 0.4 Mg/1 Tab Subl 0.4 MG SL UD PRN for Chest Pain for 30 Days, #30 TABS 3 Refills Nystatin (Topical) (Nystatin) 100,000 Unit/Gm Oin 1 APPLN TOP BID PRN for irritation for 5 Days, #15 GM 1 Refill Pantoprazole Sodium (Protonix) 40 Mg Tab 40 MG PO DAILY for 30 Days, #30 TAB 6 Refills Polyethylene Glycol 3350 (Bulk (Polyethylene Glycol 3350) 1 Pow Pow 17 GM PO DAILY PRN for Constipation for 30 Days, #527 GM 11 Refills Ranitidine Hcl (Zantac 150 Maximum Streng) 150 Mg Tab 1 TAB PO BID for 30 Days, #60 TAB 3 Refills Sennosides-Docusate Sodium (Sennalax-S) 1 Tab Tab 2 TABS PO BID Simethicone (Simethicone) 125 Mg Cap 125 MG PO BID PRN for Gas or Constipation Tiotropium Tibbie (Spiriva Handihaler) 30 Puff/540 Mcg Aerp 1 CAP INH DAILY, CAP 3 Refills [Ssd/Nystatin/Desitin] () 1 APPLN TOP PRN Discontinued Medications: Guaifenesin Ext Rel (Mucinex Ext Rel) 600 Mg Tab 600 MG PO DAILY, TAB Omeprazole (Prilosec) 40 Mg Cap 40 MG PO BID Oseltamivir Phosphate (Tamiflu) 75 Mg Cap 75 MG PO DAILY, #10 CAP last dose on 05/15 Sertraline Hcl (Zoloft) 100 Mg Tab 100 MG PO DAILY, TAB Admission Information HPI (per Admitting provider): 80 year old female who presents to the ER with cough and shortness of breath. Patient was admitted to [facility] 03/2016 for chest pain and underwent echo that showed mitral valve abnormality. Etiologies included possible calcified ruptured chord, versus healed vegetation, although SBE cannot be excluded. Blood cultures were negative. Patient followed up with cardiology recently and had an echo that was unchanged from the prior one. There was an outbreak of influenza at [facility] and patient was placed empirically on Tamiflu on 05/05 for a 10 day course. Patient reports she started to get sick a few days ago. She reports worsening shortness of breath and cough. She reports shortness of breath occurs at rest and with exertion. Cough has been mostly dry but occasionally productive for a clear sputum. She reports feeling feverish however did not take her temperature. She reports episodes of diaphoresis. No chest pain or palpitations. She denies lightheadedness, dizziness, or syncopal event. No abdominal pain, nausea, or vomiting. She reports a few episodes of diarrhea. No urinary symptoms. In the ER, patient was found to be 87% on room air that improved with oxygen 2L via NC. CXR is showing mild fluid overload. She was given IV Levaquin, Lasix 40mg IV, and neb. Vitals are stable. Remainder of her labs are unremarkable. Physical Exam (per Admitting): General Appearance: no apparent distress Head: normocephalic Eyes: normal inspection ENT: hearing grossly normal Neck: supple, no JVD Respiratory/Chest: no respiratory distress, + decreased breath sounds (poor air entry BL), + wheezing (faint, end expiratory), + pertinent finding (mild conversational dyspnea) Cardiovascular: regular rate, rhythm, normal peripheral pulses, + pertinent finding (trace edema BLLE) Abdomen/GI: normal bowel sounds, non tender, soft Extremities/Musculoskelatal: normal inspection, no calf tenderness Neurologic/Psych: no motor/sensory deficits, alert, normal mood/affect, oriented x 3 Skin: normal color, warm/dry Hospital Course Depression Zoloft and Remeron restarted Tolerated med well- continue current management Can titrate up zoloft if needed Psychiatry consulted Stable Leukocytosis Likely secondary to UTI urine growth to proteus mirabilis Started on Cipro and changed to Ceftriaxone as per sensitivity abx was changed to keflex on 06/26 stable Respiratory failure with hypoxia CXR showed no change in appearance of the chest. Persistent bilateral pleural effusions and left basilar opacity which could reflect atelectasis or consolidation. Started on IV Clinda and completed abx course,Nebs and Mucomyst She had a surgical repair done for her hiatal hernia by Dr. Rosas on 05/30/16 Continue having episodic sob continue oxygen supplement Condition improved a lot Clinically much better today Continue PT/OT / Breathing feels better today Continue lasix CXR done this morning showed improved pulmonary vascular congestion Persistent left pleural effusion continue monitor ACUTE DVT , RIGHT UPPER ARM-about 6 weeks of treatment -Doppler US: 1. Interval healing right-sided PICC catheter 2. Right upper extremity DVT with involvement of subclavian, axillary, brachial, basilic and cephalic veins. - discussed with Cardiology regarding history of pericardial hemorrhage in 2014 associated with PM placement, ok to anticoagulate has history of subdural hemorrhage in 2015 s/p mechanical fall, repeat CT head March 2016 showed resolution - will start Heparin full dose -Hematology consult -check Leg Dopplers to r/o DVT -Has been on Heparin and Coumadin -was changed to Lovenox and Coumadin -has had one episode of questionable hemoptysis-hold Lovenox now -no more Hemoptysis the next day -Lovenox restarted -INR therapeutic today 06/23/16 -D/C Lovenox tomorrow if INR >2 -Lovenox discontinued -INR 2.4 -continue Coumadin -Coumadin 3 mg daily -likely to continue for 6 weeks ,will discuss with dr Guadarrama as she has 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 Rosas s/p removal NG tube and chest tube removal Barium Swallow did show lower Esophageal narrowing likely due to post surgical edema Belching is improved Tolerating diet Will have occasional attacks of belching and SOB as observed during her hospital stay Needs to be managed symptomatically Her belching is better Stable Hx of a .fib Rate is controlled Continue Amiodarone and coumadin INR today 2.4 Continue monitor INR Stable ARF Creatine has been stable lasix resumed continue monitor BMP as an outpatient HTN Continue BP med BP stable Nutrition Started on liquid diet and will continue till of this month Can advance diet as tolerated Now with Soft diet Medically stable to be discharged Thrombocytopenia HIT studies-negative platelet wnl stable Hospital course so far: Intial presentation with ACUTE HYPOXIC RESPIRATORY FAILURE, LIKELY MULTIFACTORIAL DUE TO ACUTE DIASTOLIC CHF AND/OR COPD EXACERBATION Presented with cough and SOB x 3 days; influenza outbreak at [facility] however patient has been on prophylactic Tamilfu since 05/05 87% on room air on arrival, improved with oxygen 2L via NC Treated with steroids, Lasix and abx ECHO did not show any significant change compared with prior test Appreciate Cardiology input Cardiology started on lower dose Losartan which was stopped secondary to arf and hyperkalemia Requiring oxygen while sleeping on nocturna pulse ox study Prednisone on a tapering dose Appreciate Pulmonary input MITRAL VALVE ANOMALY ECHO::ECHO:: * Sinus rhythm was present during the echocardiogram. * There is a 0.6cm x 0.6cm mobile echodensity attached to ventricular surface of the mitral valve annulus near the left ventricular outflow tract. * Calcified mitral apparatus. * The aortic valve is moderately calcified. * Mild valvular aortic stenosis. * Moderate aortic regurgitation. * The left ventricular wall motion is normal. * Ejection Fraction = 60-65%. * Grade I diastolic dysfunction, (abnormal relaxation pattern). * Compared to the most recent echocardiogram, the echodensity is unchanged. cardiology on board stable cardiac condition ATRIAL FIBRILLATION on amiodarone and metoprolol rate controlled Not anticoagulated due to hx of hemorrhagic pericardial effusion and subdural hematoma s/p fall was on amiodarone drip post surgery back on po amiodarone maintenance dose SSS S/P PACER no acute issues ARF' baseline cr 1.2 to 1.3 Monitor labs. DM hgb a1c 7.0 03/2016 oral agents on hold. SSI while hospitalized will monitor GERD, HIATAL HERNIA on PPI/H2 filipe HYPOTHYROIDISM on levothyroxine DEPRESSION on sertraline DVT PROPHYLAXIS Now on Heparin and Coumadin CODE STATUS DNR DISPO: social service for d/c planning Continue PT/OT Possible discharge tomorrow to [facility] Total time spent on discharge = 45 minutes This includes examination of the patient, discharge planning, medication reconciliation, and communication with other providers. Discharge Instructions Discharge Instructions Admission Reason for Admission: Acute Respiratory Failure W/ Hypoxia Discharge Discharge Diagnosis / Problem: (1) CHF (congestive heart failure) (2) Hypoxia (3) CKD (chronic kidney disease), stage III (4) S/P hernia repair (5) Atrial fibrillation (6) COPD (chronic obstructive pulmonary disease) VTE Date & Time Date of VTE Diagnosis: Jun 19, 2016 Time of VTE Diagnosis: 14:54 Discharge Goals Goal(s): Decrease discomfort, Improve function, Improve disease control Activity Recommendations Activity Limitations: resume your previous activity (as tolerated) . Instructions / Follow-Up Instructions / Follow-Up Please schedule follow up appointment with your primary care physician once discharge from rehab Continue PT/OT Fall precaution Follow up with Cardiology and pulmonary once discharge from rehab Complete 2 more days of keflex to complete abx course INR today 2.4, continue coumadin 3 mg Check INR on Sunday Check BMP within 1 week to monitor kidney function and sodium Call your physician or Seek medical attention if you develop any blood in your stool or urine Continue oxygen supplement at 2L NC for now Medication Instructions: * Warfarin is a medicine prescribed to prevent blood clots * Warfarin will thin your blood and help prevent new clots * Take your medications exactly as directed * Never skip a dose. Never take a double dose. If you miss a dose, take it as soon as you remember * It is important for your doctor to monitor your prothrombin time (PT). This is a lab test * Keep your appointment for lab tests Risk of Adverse Drug Reactions and Interactions: * Warfarin increases your risk of bleeding * The food you eat and other medications you take can affect how Warfarin works in your body * Ask your doctor about daily aspirin therapy * It is very important to talk with your doctor about all of the other medicines , antibiotics, vitamins or herbal products that you are taking * All of your medication must be approved by your doctor, including new medicines, as well as medicines you have taken before you started taking Warfarin Diet: * In order for Warfarin to work properly, it is important to keep your intake of Vitamin K as consistent as possible * You should avoid any sudden change in Vitamin K intake * Report any significant changes in your diet or weight to your doctor Call your Primary Care doctor if you experience any of the following: * Swelling or Pain in your leg * Sudden, continuous pain deep in a muscle * Pain that worsens when you are active or when you stand still for a long time * Chest Pain * Sudden Shortness of Breath * Rapid or pounding heart beat * Fainting * Dizziness * Cough with blood or bloody sputum * Sweating more than normal * Bruises * Heavy or uncontrolled bleeding * Blood in your urine, stool or vomit * Black or tarry stools Caring for Your Self at Home: * Avoid sitting, standing or lying down for long periods without moving your legs and feet * When traveling by car, stop to get out and move around at least once every 3 hours * On long airplane, train or bus rides, get up and move around when possible * If you can't get up, wiggle your toes and tighten your calves to keep your blood moving Follow Up: It is important for you to keep your follow up appointments with your medical provider. Current Hospital Diet Patient's current hospital diet: Diabetes Type 2 Diet Discharge Diet Recommended Diet: AHA Diet (Heart Healthy), Diabetes Type 2 Diet Procedures Procedures Performed: Left Thoracotomy, Belsey Jose IV Diaphramatic Repair Pending Studies Studies pending at discharge: no Laboratory Results Hemoglobin A1c Test 04/09/16 05:12 Range/Units Estimated Average Glucose 154 mg/dl Hemoglobin A1c 7.0 H 4.5-5.6 % Medical Emergencies . Who to Call and When: Medical Emergencies: If at any time you feel your situation is an emergency, please call 911 immediately. . Non-Emergent Contact Non-Emergency issues call your: Primary Care Provider Call Non-Emergent contact if: you have any medication questions . . "Provider Documentation" section prepared by Sven Gillespie. VTE Core Measure Inpt VTE Proph given/why not?: Warfarin (Coumadin), SCD's Reason no anticoag overlap I/P: Treatment provided - N/A Reason no anticoag overlap @DC: Treatment provided - N/A Additional Copies To Twining, Teo
[2016-06-30 12:37] VITALS: BP 146/72; PULSE 63; TEMP 37.2; O2SAT 95
== END 2016-06-30 13:42 | DRG 163 ==
LOC: ENRESERVTM → ENRESERVDT → EDBD 15:12 → C.EDB 15:14 → C.2E 18:26 → C.MED 05-23 17:31 → C.MS4W 05-24 19:06 → C.MSICU 05-30 18:55 → C.2T 06-03 18:28 → C.4E 06-04 13:27 → C.2T 06-05 13:53 → C.4E 06-07 17:53
PROVIDERS: ADMIT Emergency Medicine; ATTEND Internal Medicine
PROC: 0BQR0ZZ (ICD-10-PCS; principal; 2016-05-30 12:30)
PROC: 0BQS0ZZ (ICD-10-PCS; principal; 2016-05-30 12:30)
PROC: 0DV40ZZ Restriction of Esophagogastric Junction, Open Approach (ICD-10-PCS; principal; 2016-05-30 12:30)
PROC: 02HV33Z Insertion of Infusion Device into Superior Vena Cava, Percutaneous Approach (ICD-10-PCS; 2016-06-30)
DX: J44.1 Chronic obstructive pulmonary disease with (acute) exacerbation (principal); J96.01 Acute respiratory failure with hypoxia; N17.9 Acute kidney failure, unspecified; N39.0 Urinary tract infection, site not specified; I50.33 Acute on chronic diastolic (congestive) heart failure; F33.1 Major depressive disorder, recurrent, moderate; J98.11 Atelectasis; Z68.41 Body mass index [BMI] 40.0-44.9, adult; J93.9 Pneumothorax, unspecified; J18.9 Pneumonia, unspecified organism; J90 Pleural effusion, not elsewhere classified; I82.621 Acute embolism and thrombosis of deep veins of right upper extremity; I13.10 Hypertensive heart and chronic kidney disease without heart failure, with stage 1 through stage 4 chronic kidney disease, or unspecified chronic kidney disease; K43.2 Incisional hernia without obstruction or gangrene; K44.9 Diaphragmatic hernia without obstruction or gangrene; I48.91 Unspecified atrial fibrillation; E11.21 Type 2 diabetes mellitus with diabetic nephropathy; Z66 Do not resuscitate; Z87.891 Personal history of nicotine dependence; N18.3 Chronic kidney disease, stage 3 (moderate); I12.9 Hypertensive chronic kidney disease with stage 1 through stage 4 chronic kidney disease, or unspecified chronic kidney disease; K43.9 Ventral hernia without obstruction or gangrene; D69.6 Thrombocytopenia, unspecified; B96.4 Proteus (mirabilis) (morganii) as the cause of diseases classified elsewhere; E66.9 Obesity, unspecified; E03.9 Hypothyroidism, unspecified; K22.70 Barrett's esophagus without dysplasia; Z88.0 Allergy status to penicillin; Z95.0 Presence of cardiac pacemaker; F41.9 Anxiety disorder, unspecified; E87.5 Hyperkalemia; I48.0 Paroxysmal atrial fibrillation; Z79.01 Long term (current) use of anticoagulants